=== PATIENT | female | born 1990 | race African-American/Black ===

== ENCOUNTER 2016-05-28 14:49 | Emergency (ER) | payer BC ==
[~2016-05-28] VITALS: Ht 167.6 cm; Wt 143.3 kg
[2016-05-28 14:57] VITALS: TEMP 36.6; Ht 167.6 cm; Wt 143.3 kg
[2016-05-28] MEDS ORDERED: MULT-240 PO (15:16)
[2016-05-28 15:44] LABS: HEMATOCRIT 40.8 % (37-47); MEAN CELL VOLUME 82.8 fL (80-100); MEAN CORPUSCULAR HEMOGLOBIN 28.2 pg (25-34); MEAN CORPUSCULAR HGB CONC 34.1 g/dl (32-36); PLATELET COUNT 444 K/uL (130-400); RED BLOOD COUNT 4.93 M/uL (4.2-5.4); WHITE BLOOD COUNT 4.88 K/uL (4.8-10.8)
[2016-05-28 15:57] LABS: PROTHROMBIN TIME (PATIENT) 10.7 SECONDS (9.0-12.0)
--- NOTE | 2016-05-28 16:02 | EMERGENCY ROOM VISIT NOTE ---
History First contact with patient: 15:04 Chief Complaint: VAGINAL BLEEDING Stated Complaint: VAGINAL BLEEDING, DIZZINESS, DEHYDRATION History of Present Illness The patient is a 26 year old female who presents to the Emergency Room with complaints of irregular periods. The patient reports that she developed spotting over 2 weeks ago. She states that since her period started, it has been very heavy most days. She reports she has been changing her pad every 5-6 hours. The patient reports that her periods have been irregular in the past. She states that since starting her period as a teenager, she has had frequent periods. She has been working out recently and is unsure if this could be causing her symptoms. She does report she has been under a lot of stress recently due to a move and family issues. She denies any previous bleeding like this. She denies any history or family history of bleeding disorders. She does not take control pills. She denies chance of . She denies any significant cramping, vaginal discharge or urinary symptoms. She denies any other medical problems. Review of Systems A complete 10-point Review of Systems was discussed with the patient, with pertinent positives and negatives listed in the History of Present Illness. All remaining Review of Systems questions can be considered negative unless otherwise specified. Social History Smoking Status: Never Smoker Current/Historical Medications Scheduled Multiple Vitamins W/ Minerals (Womens One Daily), 1 TAB PO DAILY Allergies Coded Allergies: No Known Allergies (Unverified , 05/28/16) Physical Exam Vital Signs Date Time Temp Pulse Resp B/P Pulse Ox O2 Delivery O2 Flow Rate FiO2 05/28/16 18:20 98 18 120/90 96 Room Air 05/28/16 14:57 36.6 91 20 115/94 100 Room Air Physical Exam VITALS: Vitals are noted on the nurse's note and reviewed by myself. Vital signs stable. GENERAL: This is a 26-year-old female, anxious appearing, nondiaphoretic, well- developed well-nourished. SKIN: Capillary reflex less than 2 seconds. HEART: Regular rate and rhythm without murmurs gallops or rubs. LUNGS: Clear to auscultation bilaterally without wheezes, rales or rhonchi. ABDOMEN: Positive bowel sounds x 4. Soft, nontender to palpation. No guarding or rebound tenderness. NEURO: Patient was alert and oriented to person place and time. Medical Decision & Procedures ER Provider Diagnostic Interpretation: PELVIC ULTRASOUND FINDINGS: This exam is compromised by suboptimal penetration. The uterus measures 6.1 x 2.8 x 4.1 cm and the endometrium measures 7 mm in thickness. Note is made of a 1.4 cm hypoechoic lesion arising from the right aspect of the uterus. In addition, there is an apparent 2.3 cm round hypoechoic lesion arising from the left aspect of the uterus. The right ovary measures 3.7 x 1.4 x 3.1 cm. The left ovary measures 4.1 x 1.3 x 2.8 cm. IMPRESSION: 1. Normal endometrial thickness of 7 mm. 2. 2 hypoechoic lesions which likely arise from the uterus. The largest of these is a 2.3 cm lesion arising from the left aspect of the uterus which may reflect a subserosal fibroid. A follow-up nonemergent MRI of the pelvis could be performed. 3. Study compromised by suboptimal penetration. 4. Partially obscured ovaries but no significant ovarian abnormality identified. Laboratory Results 05/28/16 15:30 Red Blood Count 4.93, Mean Corpuscular Volume 82.8, Mean Corpuscular Hemoglobin 28.2, Mean Corpuscular Hemoglobin Concent 34.1, Mean Platelet Volume 10.0 05/28/16 15:30 Test 05/28/16 15:30 White Blood Count 4.88 K/uL (4.8-10.8) Red Blood Count 4.93 M/uL (4.2-5.4) Hemoglobin 13.9 g/dL (12.0-16.0) Hematocrit 40.8 % (37-47) Mean Corpuscular Volume 82.8 fL (80-100) Mean Corpuscular Hemoglobin 28.2 pg (25-34) Mean Corpuscular Hemoglobin Concent 34.1 g/dl (32-36) Platelet Count 444 K/uL (130-400) Mean Platelet Volume 10.0 fL (7.4-10.4) RDW Standard Deviation 51.4 fL (36.4-46.3) RDW Coefficient of Variation 16.9 % (11.5-14.5) Neutrophils % (Manual) 34.2 % Lymphocytes % (Manual) 48.2 % Variant Lymphocytes % (manual) 12.3 % Monocytes % (Manual) 5.3 % Neutrophils # (Manual) 1.67 K/uL (1.4-6.5) Total Absolute Neutrophils 1.67 K/uL (1.4-6.5) Lymphocytes # (Manual) 2.35 K/uL (1.2-3.4) Absolute Variant Lymphocytes 0.60 K/uL Total Absolute Lymphocytes 2.95 K/uL (1.2-3.4) Monocytes # (Manual) 0.26 K/uL (0.11-0.59) Prothrombin Time 10.7 SECONDS (9.0-12.0) Prothromb Time International Ratio 1.0 (0.9-1.1) Activated Partial Thromboplast Time 26.7 SECONDS (21.0-31.0) Partial Thromboplastin Ratio 1.0 Anion Gap 11.0 mmol/L (3-11) Est Creatinine Clear Calc Drug Dose 144.5 ml/min Estimated GFR () 108.1 Estimated GFR (Non- 93.2 BUN/Creatinine Ratio 6.5 (10-20) Calcium Level 8.4 mg/dl (8.5-10.1) Total Bilirubin 0.3 mg/dl (0.2-1) Aspartate Amino Transf (AST/SGOT) 37 U/L (15-37) Alanine Aminotransferase (ALT/SGPT) 62 U/L (12-78) Alkaline Phosphatase 92 U/L (45-117) Total Protein 8.3 gm/dl (6.4-8.2) Albumin 3.9 gm/dl (3.4-5.0) Globulin 4.4 gm/dl (2.5-4.0) Albumin/Globulin Ratio 0.9 (0.9-2) Thyroid Stimulating Hormone (TSH) 0.155 uIu/ml (0.300-4.500) Free Thyroxine 0.93 ng/dl (0.80-1.60) Free Triiodothyronine 2.34 pg/ml (2.30-4.20) Medical Decision Differential diagnosis includes uterine fibroid, malignancy, thyroid disorder, infection, among others. The patient was evaluated as above. Labs were drawn and IV access was obtained. Imaging studies were performed and read by radiology as above. The patient is a 26-year-old female who presents today complaining of irregular periods. Labs revealed no leukocytosis, anemia or concerning electrolyte abnormalities. PTT and PT/INR were within normal limits. TSH was slightly low. T3 and T4 were found to be normal. Urinalysis was not suggestive of infection. Urine was negative. A pelvic ultrasound was performed and did show evidence of a possible uterine fibroid. The patient was informed of all findings. She will need to follow-up with [facility] for the fibroid. She was instructed to follow-up with a primary care provider to have her thyroid studies rechecked. She will return for any new/concerning symptoms. Based on the patient's presentation, lab results, and imaging studies, I feel the patient is stable for outpatient treatment. The patient's case was reviewed with Dr. Mcgarry, ED attending physician, who agreed with my assessment and treatment plan. Discharge instructions were reviewed with the patient. The patient verbalized understanding of my assessment and treatment plan and was discharged home in good condition. Impression Primary Impression: Abnormal vaginal bleeding Additional Impression: Uterine fibroid Departure Information Dispostion Home / Self-Care Condition GOOD Referrals No Doctor, Assigned (PCP) Dorothea Francis M.D. Patient Instructions A Signature Page, My [facility] Additional Instructions Your ultrasound showed a possible uterine fibroid. You will need to follow-up with [facility] within 1-2 weeks for further evaluation of this. Your thyroid studies were slightly abnormal. You will need to see a primary care provider in the next few weeks to have this checked. All testing was otherwise normal. Return to the emergency department with any new/concerning symptoms, abdominal pain, or very heavy vaginal bleeding.
[2016-05-28 16:06] LABS: BUN/CREATININE RATIO 6.5 (10-20); CALCIUM 8.4 mg/dl (8.5-10.1); CREATININE 0.85 mg/dl (0.60-1.20); POTASSIUM 3.7 mmol/L (3.5-5.1)
[2016-05-28 16:11] LABS: COMPLETE YES; LYMPH ABS # 2.35 K/uL (1.2-3.4); LYMPHOCYTE % 48.2 %; NEUTROPHILS % 34.2 %; VARIANT LYMPHOCYTE % 12.3 %
[2016-05-28 16:16] LABS: ALB/GLOB RATIO 0.9 (0.9-2); THYROID STIMULATING HORMONE 0.155 uIu/ml (0.300-4.500)
--- NOTE | 2016-05-28 17:16 | DIAGNOSTIC IMAGING REPORT ---
PELVIC ULTRASOUND CLINICAL HISTORY: Irregular periods. COMPARISON STUDY: None TECHNIQUE: Transabdominal and transvaginal sonography of the pelvis was performed. FINDINGS: This exam is compromised by suboptimal penetration. The uterus measures 6.1 x 2.8 x 4.1 cm and the endometrium measures 7 mm in thickness. Note is made of a 1.4 cm hypoechoic lesion arising from the right aspect of the uterus. In addition, there is an apparent 2.3 cm round hypoechoic lesion arising from the left aspect of the uterus. The right ovary measures 3.7 x 1.4 x 3.1 cm. The left ovary measures 4.1 x 1.3 x 2.8 cm. IMPRESSION: 1. Normal endometrial thickness of 7 mm. 2. 2 hypoechoic lesions which likely arise from the uterus. The largest of these is a 2.3 cm lesion arising from the left aspect of the uterus which may reflect a subserosal fibroid. A follow-up nonemergent MRI of the pelvis could be performed. 3. Study compromised by suboptimal penetration. 4. Partially obscured ovaries but no significant ovarian abnormality identified. Electronically signed by: Kadeem Fuentes M.D. 05/28/2016 5:14 PM Dictated Date/Time: 05/28/2016 5:11 PM
[2016-05-28 18:20] VITALS: BP 120/90; PULSE 98; O2SAT 96
[2016-09-03] MEDS ORDERED: PRT40 PO (15:40)
[2016-09-29] MEDS ORDERED: ZNT150 PO (17:58)
[2016-09-29] MEDS ORDERED: CRFUDL PO (17:58)
[2016-10-13] MEDS ORDERED: ULT50X PO (10:40)
[2016-11-22] MEDS ORDERED: ULT50X PO (17:48)
[2016-12-09] MEDS ORDERED: METO-157 PO (08:58)
== END 2016-05-28 18:22 | disposition home or self-care (01) ==
LOC: C.EDB 14:54 → C.EDC 18:22
DX: N93.9 Abnormal uterine and vaginal bleeding, unspecified (principal); D25.9 Leiomyoma of uterus, unspecified

== ENCOUNTER 2016-08-30 23:08 | Inpatient (IN) | payer BC ==
[~2016-08-30] VITALS: Ht 167.6 cm; Wt 143.1 kg
[~2016-08-30 23:08] MED LIST: MULT-240 PO
[2016-08-30] MEDS ORDERED: HYDROmorphone INJ 1 MG/ML SYR IV STA (23:24)
[2016-08-30] MEDS ORDERED: SODIUM CHLORIDE 0.9% 1000ML 1,000 ML IV STA (23:24)
[2016-08-30] MEDS ORDERED: ONDANSETRON INJ 2 MG/ML 2 ML VIAL IV STA (23:24)
--- NOTE | 2016-08-30 23:27 | EMERGENCY ROOM VISIT NOTE ---
History Report prepared by Batsheva: Yuri Montana Under the Supervision of: Dr. Peter Preston M.D. First contact with patient: 23:17 Chief Complaint: ABDOMINAL PAIN Stated Complaint: SEVERE ABD PAIN,SWEATS,EXHAUSTED History of Present Illness The patient is a 26 year old female who presents to the Emergency Room with complaints of worsening upper abdominal pain for the past two days. The pain is severe. The patient also complains of nausea, vomiting, loose and dark stools. She has never had surgery of the abdomen. She denies any rashes. 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 She has a history of uterine fibroid. Source of History: patient Onset: two days ago Position: abdomen (upper) Symptom Intensity: severe Timing: worsening Associated Symptoms: + diarrhea (loose stools), + melena, + nausea, + vomiting, No rash Review of Systems See HPI for pertinent positives & negatives. A total of 10 systems reviewed and were otherwise negative. Past Medical & Surgical Medical Problems: (1) Abdominal pain (2) Abnormal vaginal bleeding (3) Elevated bilirubin (4) Uterine fibroid Family History No pertinent family history Social History Smoking Status: Never Smoker 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 Current/Historical Medications Scheduled Control Pills ( Control Pills), 1 TAB PO DAILY Allergies Coded Allergies: No Known Allergies (Unverified , 08/30/16) Physical Exam Vital Signs Date Time Temp Pulse Resp B/P Pulse Ox O2 Delivery O2 Flow Rate FiO2 08/31/16 02:47 110 16 135/116 98 Room Air 08/31/16 01:29 122 22 161/106 98 Room Air 08/31/16 00:24 104 20 159/108 95 Room Air 08/30/16 23:10 37.2 131 20 159/85 97 Room Air Physical Exam GENERAL: Patient is severely uncomfortable appearing. HEENT: No acute trauma, normocephalic atraumatic, mucous membranes moist, no nasal congestion, no scleral icterus. NECK: No stridor, no adenopathy, no meningismus, trachea is midline. LUNGS: No dyspnea. Clear to auscultation and equal bilaterally. No wheeze, no rhonchi. HEART: Tachycardic, regular rhythm. No murmurs, rubs, gallops appreciated. ABDOMEN: Exquisite right upper quadrant tenderness to palpation, no peritonitis , distant bowel sounds. BACK: No midline tenderness, no CVA tenderness EXTREMITIES: Normal motion all extremities, no cyanosis, no edema. NEUROLOGIC: Alert and oriented, no acute motor or sensory deficits, no focal weakness, cranial nerves grossly intact. SKIN: Diaphoretic. No rash, no jaundice. Medical Decision & Procedures ER Provider Diagnostic Interpretation: Radiology results and stated below per my review and radiologist interpretation: US GALLBLADDER: No gallstones. No gallbladder wall thickening. Common bile duct is upper limits of normal measuring 6 mm. Enlarged liver with increased echogenicity, possible fatty infiltration or other etiologies. No right hydronephrosis. Pancreas not well visualized. Radiologist: Michell Cruz MD. CT ABDOMEN & PELVIS: No evidence of bowel obstruction. Appendix is unremarkable. Fatty liver. Dense material in the gallbladder. A 10 mm hypodense focus in the right upper quadrant of unclear etiology, may be pancreatic. Probably uterine fibroids. No hydronephrosis. Tiny left renal hypodensity. Mildly thickened underdistended bladder. Radiologist: Michell Cruz MD. Laboratory Results 08/30/16 23:33 Red Blood Count 4.74, Mean Corpuscular Volume 81.0, Mean Corpuscular Hemoglobin 27.2, Mean Corpuscular Hemoglobin Concent 33.6, Mean Platelet Volume 9.4, Neutrophils (%) (Auto) 52.7, Lymphocytes (%) (Auto) 38.6, Monocytes (%) (Auto) 7.7, Eosinophils (%) (Auto) 0.3, Basophils (%) (Auto) 0.5, Neutrophils # (Auto) 3.07, Lymphocytes # (Auto) 2.25, Monocytes # (Auto) 0.45, Eosinophils # (Auto) 0.02, Basophils # (Auto) 0.03 08/30/16 23:33 Test 08/30/16 23:33 08/31/16 03:00 White Blood Count 5.83 K/uL (4.8-10.8) Red Blood Count 4.74 M/uL (4.2-5.4) Hemoglobin 12.9 g/dL (12.0-16.0) Hematocrit 38.4 % (37-47) Mean Corpuscular Volume 81.0 fL (80-100) Mean Corpuscular Hemoglobin 27.2 pg (25-34) Mean Corpuscular Hemoglobin Concent 33.6 g/dl (32-36) Platelet Count 351 K/uL (130-400) Mean Platelet Volume 9.4 fL (7.4-10.4) Neutrophils (%) (Auto) 52.7 % Lymphocytes (%) (Auto) 38.6 % Monocytes (%) (Auto) 7.7 % Eosinophils (%) (Auto) 0.3 % Basophils (%) (Auto) 0.5 % Neutrophils # (Auto) 3.07 K/uL (1.4-6.5) Lymphocytes # (Auto) 2.25 K/uL (1.2-3.4) Monocytes # (Auto) 0.45 K/uL (0.11-0.59) Eosinophils # (Auto) 0.02 K/uL (0-0.5) Basophils # (Auto) 0.03 K/uL (0-0.2) RDW Standard Deviation 52.3 fL (36.4-46.3) RDW Coefficient of Variation 17.8 % (11.5-14.5) Immature Granulocyte % (Auto) 0.2 % Immature Granulocyte # (Auto) 0.01 K/uL (0.00-0.02) Prothrombin Time 11.4 SECONDS (9.0-12.0) Prothromb Time International Ratio 1.1 (0.9-1.1) Activated Partial Thromboplast Time 27.3 SECONDS (21.0-31.0) Partial Thromboplastin Ratio 1.1 Anion Gap 16.0 mmol/L (3-11) Est Creatinine Clear Calc Drug Dose 123.9 ml/min Estimated GFR () 89.9 Estimated GFR (Non- 77.6 BUN/Creatinine Ratio 5.3 (10-20) Calcium Level 9.1 mg/dl (8.5-10.1) Total Bilirubin 1.5 mg/dl (0.2-1) Direct Bilirubin 0.4 mg/dl (0-0.2) Aspartate Amino Transf (AST/SGOT) 95 U/L (15-37) Alanine Aminotransferase (ALT/SGPT) 69 U/L (12-78) Alkaline Phosphatase 94 U/L (45-117) Total Protein 8.7 gm/dl (6.4-8.2) Albumin 4.2 gm/dl (3.4-5.0) Lipase 292 U/L (73-393) Urine Color DK YELLOW Urine Appearance CLEAR (CLEAR) Urine pH 5.5 (4.5-7.5) Urine Specific [place] 1.010 (1.000-1.030) Urine Protein 1+ (NEG) Urine Glucose (UA) NEG (NEG) Urine Ketones 3+ (NEG) Urine Occult Blood 1+ (NEG) Urine Nitrite NEG (NEG) Urine Bilirubin NEG (NEG) Urine Urobilinogen NEG (NEG) Urine Leukocyte Esterase NEG (NEG) Urine WBC (Auto) 10-30 /hpf (0-5) Urine RBC (Auto) 0-4 /hpf (0-4) Urine Hyaline Casts (Auto) 0 /lpf (0-5) Urine Epithelial Cells (Auto) >30 /lpf (0-5) Urine Bacteria (Auto) 2+ (NEG) Urine Pathogenic Casts /lpf (0) Urine Test NEG (NEG) Laboratory results as reviewed by me. Medications Administered Medications (Trade) Dose Ordered Sig/Marlin Route Start Time Stop Time Status Last Admin Dose Admin Hydromorphone HCl (Dilaudid Inj) 1 mg NOW STAT IV 08/30/16 23:24 08/30/16 23:26 DC 08/30/16 23:56 1 MG Hydromorphone HCl (Dilaudid Inj) 1 mg Q30M PRN IV 08/30/16 23:30 09/13/16 23:29 08/31/16 01:34 1 MG Ondansetron HCl 4 mg 4 mg NOW STAT IV 08/30/16 23:24 08/30/16 23:26 DC 08/30/16 23:56 4 MG Sodium Chloride (Nss 1000ml) 1,000 ml @ 999 mls/hr Q1H1M STAT IV 08/30/16 23:24 08/31/16 00:24 DC 08/30/16 23:24 999 MLS/HR Hydromorphone HCl (Dilaudid Inj) 1 mg NOW STAT IV 08/31/16 00:49 08/31/16 00:51 DC 08/31/16 01:01 1 MG Ondansetron HCl (Zofran Inj) 4 mg NOW STAT IV 08/31/16 00:57 08/31/16 00:58 DC 08/31/16 01:01 4 MG ED Course 2320: The patient was evaluated in room A12b. A complete history and physical exam was performed. 2324: NSS 1000 ml @ 999 mls/hr, Zofran 4 mg IV, Dilaudid 1 mg IV. 2330: Dilaudid 1 mg IV. 0045: The patient has increasing pain. I will order more pain medications and a CT scan. 0049: Dilaudid 1 mg IV. 0057: The patient is feeling nauseous. 0057: Zofran 4 mg IV. 0230: The patient is feeling a little better. She still has some nausea and is mildly tachycardic. 0235: [facility] The patient will be evaluated. Medical Decision Differential: Cholecystitis, Gallbladder disfunction, Hepatic Disfunction, Gastritis/PUD, Renal Colic, Pancreatitis, ACS, Aortic Pathology, amongst other pathologies entertained. Very pleasant 26 yr old bárbara arrives in quite some distress with RUQ abdominal pain. Associated nausea/vomiting/diaphoresis. Clearly RUQ area thus radha to US first which was minimally remarkable. Labs with mildly elevated bili and as and with continued pain went ahead wih CT. CT with pass in RUQ of uncertain etiology (Pancrease?). This may be causing some ductal obstruction and just is early thus only mild bili increase. She has been requiring multiple rounds of pain medications and nausea meds. Notes dark stools without blood though unable to provide sample. May have ulcer bleeding but with mass unclear. Will need to come in for further evaluation and pain control. No clear evidence infection. None cardiac in nature as clearly reproducible. Dehydrated with increased ketones in urine. Consults Time Called: 224 Consulting Physician: [facility] Returned Call: [phone]: Discussed the case with Keven Coffey [facility]. The patient will be evaluated. Impression Primary Impression: Intractable abdominal pain Additional Impressions: Pancreatic mass Elevated bilirubin Dehydration Scribe Attestation The scribe's documentation has been prepared under my direction and personally reviewed by me in its entirety. I confirm that the note above accurately reflects all work, treatment, procedures, and medical decision making performed by me. Departure Information Dispostion Being Evaluated By Hospitalist Referrals No Doctor, Assigned (PCP) Patient Instructions My [facility] Problem Qualifiers
[2016-08-30] MEDS ORDERED: HYDROmorphone INJ 1 MG/ML SYR IV PRN (23:30)
[2016-08-30 23:42] LABS: BASO % 0.5 %; BASO ABS # 0.03 K/uL (0-0.2); COMPLETE YES; EOS % 0.3 %; HEMATOCRIT 38.4 % (37-47); IG% 0.2 %; LYMPH % 38.6 %; LYMPH ABS # 2.25 K/uL (1.2-3.4); MEAN CORPUSCULAR HEMOGLOBIN 27.2 pg (25-34); MEAN CORPUSCULAR HGB CONC 33.6 g/dl (32-36); MEAN PLATELET VOLUME 9.4 fL (7.4-10.4); MONO % 7.7 %; NEUT % 52.7 %; PLATELET COUNT 351 K/uL (130-400); RED BLOOD COUNT 4.74 M/uL (4.2-5.4); WHITE BLOOD COUNT 5.83 K/uL (4.8-10.8)
[2016-08-31 00:03] LABS: CREATININE 0.99 mg/dl (0.60-1.20)
[2016-08-31 00:04] LABS: BUN/CREATININE RATIO 5.3 (10-20); CALCIUM 9.1 mg/dl (8.5-10.1); POTASSIUM 3.3 mmol/L (3.5-5.1)
[2016-08-31] MEDS ORDERED: HYDROmorphone INJ 1 MG/ML SYR IV STA (00:49)
[2016-08-31] MEDS ORDERED: ONDANSETRON INJ 2 MG/ML 2 ML VIAL IV STA (00:57)
[2016-08-31] MEDS ORDERED: OPTIRAY 320 IV PRN (01:00)
[2016-08-31 02:54] LABS: INR 1.1 (0.9-1.1); PARTIAL THROMBOPLASTIN RATIO 1.1; PROTHROMBIN TIME (PATIENT) 11.4 SECONDS (9.0-12.0)
[2016-08-31 03:15] LABS: URINE APPEARANCE CLEAR (CLEAR); URINE BILIRUBIN NEG (NEG); URINE COLOR DK YELLOW; URINE EPITHELIAL CELL AUTO >30 /lpf (0-5); URINE NITRITE NEG (NEG); URINE PH 5.5 (4.5-7.5); UROBILINOGEN NEG (NEG); ZZUR CULT IF INDIC CLEAN CATCH YES
[2016-08-31 03:16] LABS: MANUAL MICROSCOPIC REQUIRED? NO; REVIEW REQ? YES
--- NOTE | 2016-08-31 03:32 | History and Physical ---
History & Physical Date & Time of Service: Aug 31, 2016 at 03:31 Chief Complaint: Severe Abd Pain,Sweats,Exhausted Primary Care Physician: No Doctor, Assigned History of Present Illness Source: patient The patient is a 26 year old female who presents to the Emergency Room with complaints of worsening upper abdominal pain for the past two days. The pain is severe. The patient also complains of nausea, vomiting, loose and dark stools. She has never had surgery of the abdomen. at present her pain improved after IV pain meds , nausea has improved no fever or chills RUQ Ultrasound was negative for gall stone , gall bladder wall thickening CT abdomen /pelvis -10 mm hypodense mass in rt lower body of pancreas no prior hx of pancreatitis pt drinks alcohol socially , no recent ETOH intake does not smoke Past Medical/Surgical History Medical Problems: (1) Abnormal vaginal bleeding Status: Resolved (2) Uterine fibroid Status: Resolved Family History No pertinent family history Social History Smoking Status: Never Smoker 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 Allergies Coded Allergies: No Known Allergies (Unverified , 08/30/16) Home Medications Scheduled Control Pills ( Control Pills), 1 TAB PO DAILY Review of Systems Constitutional: + fatigue, + weakness Respiratory: No cough, No dyspnea at rest, No dyspnea on exertion, No hemoptysis, No problem reported, No shortness of breath, No sputum, No wheezing Cardiovascular: No PND, No chest pain, No claudication, No edema, No orthopnea , No palpitations, No problem reported Abdomen: + diarrhea, + nausea, + pain, + vomiting Musculoskeletal: No calf pain, No joint pain, No muscle pain, No problem reported, No swelling Genitourinary - Female: No dysmenorrhea, No dysuria, No hematuria, No menorrhagia, No metrorrhagia, No , No problem reported, No rash, No urinary frequency, No urinary incontinence, No urinary retention, No urinary urgency, No vaginal bleeding, No vaginal discharge, No vaginal itching, No vulvodynia Physical Exam Vital Signs Date Time Temp Pulse Resp B/P Pulse Ox O2 Delivery O2 Flow Rate FiO2 08/31/16 02:47 110 16 135/116 98 Room Air 08/31/16 01:29 122 22 161/106 98 Room Air 08/31/16 00:24 104 20 159/108 95 Room Air 08/30/16 23:10 37.2 131 20 159/85 97 Room Air General Appearance: no apparent distress Head: normocephalic, atraumatic Eyes: sclerae normal Respiratory/Chest: lungs clear, normal breath sounds Cardiovascular: regular rate, rhythm Abdomen/GI: soft, + tenderness (rt upper quadrant ) Extremities/Musculoskelatal: no pedal edema Neurologic/Psych: no motor/sensory deficits, alert, oriented x 3 Skin: normal color, warm/dry, no rash Diagnostics Laboratory Results Results Past 24 Hours Test 08/30/16 23:33 08/31/16 03:00 Range/Units White Blood Count 5.83 4.8-10.8 K/uL Red Blood Count 4.74 4.2-5.4 M/uL Hemoglobin 12.9 12.0-16.0 g/dL Hematocrit 38.4 37-47 % Mean Corpuscular Volume 81.0 80-100 fL Mean Corpuscular Hemoglobin 27.2 25-34 pg Mean Corpuscular Hemoglobin Concent 33.6 32-36 g/dl Platelet Count 351 130-400 K/uL Mean Platelet Volume 9.4 7.4-10.4 fL Neutrophils (%) (Auto) 52.7 % Lymphocytes (%) (Auto) 38.6 % Monocytes (%) (Auto) 7.7 % Eosinophils (%) (Auto) 0.3 % Basophils (%) (Auto) 0.5 % Neutrophils # (Auto) 3.07 1.4-6.5 K/uL Lymphocytes # (Auto) 2.25 1.2-3.4 K/uL Monocytes # (Auto) 0.45 0.11-0.59 K/uL Eosinophils # (Auto) 0.02 0-0.5 K/uL Basophils # (Auto) 0.03 0-0.2 K/uL RDW Standard Deviation 52.3 36.4-46.3 fL RDW Coefficient of Variation 17.8 11.5-14.5 % Immature Granulocyte % (Auto) 0.2 % Immature Granulocyte # (Auto) 0.01 0.00-0.02 K/uL Prothrombin Time 11.4 9.0-12.0 SECONDS Prothromb Time International Ratio 1.1 0.9-1.1 Activated Partial Thromboplast Time 27.3 21.0-31.0 SECONDS Partial Thromboplastin Ratio 1.1 Sodium Level 139 136-145 mmol/L Potassium Level 3.3 3.5-5.1 mmol/L Chloride Level 101 98-107 mmol/L Carbon Dioxide Level 22 21-32 mmol/L Anion Gap 16.0 3-11 mmol/L Blood Urea Nitrogen 5 7-18 mg/dl Creatinine 0.99 0.60-1.20 mg/dl Est Creatinine Clear Calc Drug Dose 123.9 ml/min Estimated GFR () 89.9 Estimated GFR (Non- 77.6 BUN/Creatinine Ratio 5.3 10-20 Random Glucose 94 70-99 mg/dl Calcium Level 9.1 8.5-10.1 mg/dl Total Bilirubin 1.5 0.2-1 mg/dl Direct Bilirubin 0.4 0-0.2 mg/dl Aspartate Amino Transf (AST/SGOT) 95 15-37 U/L Alanine Aminotransferase (ALT/SGPT) 69 12-78 U/L Alkaline Phosphatase 94 45-117 U/L Total Protein 8.7 6.4-8.2 gm/dl Albumin 4.2 3.4-5.0 gm/dl Lipase 292 73-393 U/L Urine Color DK YELLOW Urine Appearance CLEAR CLEAR Urine pH 5.5 4.5-7.5 Urine Specific [place] 1.010 1.000-1.030 Urine Protein 1+ NEG Urine Glucose (UA) NEG NEG Urine Ketones 3+ NEG Urine Occult Blood 1+ NEG Urine Nitrite NEG NEG Urine Bilirubin NEG NEG Urine Urobilinogen NEG NEG Urine Leukocyte Esterase NEG NEG Urine WBC (Auto) 10-30 0-5 /hpf Urine RBC (Auto) 0-4 0-4 /hpf Urine Hyaline Casts (Auto) 0 0-5 /lpf Urine Epithelial Cells (Auto) >30 0-5 /lpf Urine Bacteria (Auto) 2+ NEG Urine Pathogenic Casts 0 /lpf Urine Test NEG NEG Microbiology Results 08/31/16 Urine Culture, Received Pending Diagnostic Radiology US GALLBLADDER: No gallstones. No gallbladder wall thickening. Common bile duct is upper limits of normal measuring 6 mm. Enlarged liver with increased echogenicity, possible fatty infiltration or other etiologies. No right hydronephrosis. Pancreas not well visualized. Radiologist: Michell Cruz MD. CT ABDOMEN & PELVIS: No evidence of bowel obstruction. Appendix is unremarkable. Fatty liver. Dense material in the gallbladder. A 10 mm hypodense focus in the right upper quadrant of unclear etiology, may be pancreatic. Probably uterine fibroids. No hydronephrosis. Tiny left renal hypodensity. Mildly thickened underdistended bladder. Radiologist: Michell Cruz MD. Impression Assessment and Plan Epigastric and RUQ pain: Mild elevated LFTs Gall bladder USD:No gall stones, hepatomegaly and severe hepatic steatosis CT ABDOMEN & PELVIS: A 10 mm hypodense focus in the right upper quadrant of unclear etiology, may be pancreatic. Probably uterine fibroids. MRCP of abdomen ordered normal lipase level IV fluids/pain control/ordered for IV antiemetics ordered for NPO after midnight IV PPI BID GI consult requested FULL CODE DVT Px: low risk SCD and teds \ ambulate DISPOSITION: expected to return home when medially stable Level of Care Med/Surg Resuscitation Status FULL RESUSCITATION VTE Prophylaxis VTE Risk Assessment Done? Y/N: Yes Risk Level: Low Given or contraindicated: T.E.D. Stockings, SCD's
[2016-08-31] MEDS ORDERED: LORAZEPAM 2 MG/ML 1 ML VIAL IV STA (03:37)
[2016-08-31] MEDS ORDERED: NSS+KCL 20 MEQ 1000ML ONE (03:55)
[2016-08-31] MEDS ORDERED: POTASSIUM CHLORIDE 10 MEQ / 100ML WTR IV ONE (03:55)
[2016-08-31] MEDS ORDERED: LORAZEPAM INJ 0.5 MG in SYRINGE 0.75 ML IV PRN (04:45)
[2016-08-31 04:57] VITALS: BP 144/97; PULSE 93; TEMP 36.7; O2SAT 97; Ht 167.6 cm; Wt 143.1 kg
[2016-08-31] MEDS ORDERED: POTASSIUM CHLR 10 MEQ / WTR 10 MEQ in PREMIXED WATER 100 ML IV SCH (05:00)
[2016-08-31] MEDS: NSS + 20MEQ KCL 1000ML 1,000 ML IV SCH ×3 (05:28→21:08)
[2016-08-31] MEDS: HYDROmorphone INJ 2 MG/ML SYR/VIAL IV PRN ×2 (05:32→16:37)
[2016-08-31 06:56] VITALS: BP 125/85; PULSE 105; TEMP 36.5; O2SAT 96
--- NOTE | 2016-08-31 07:15 | DIAGNOSTIC IMAGING REPORT ---
ULTRASOUND RIGHT UPPER QUADRANT ABDOMEN CLINICAL HISTORY: Right upper quadrant abdominal pain. COMPARISON STUDY: No priors. TECHNIQUE: Real-time, grayscale, and color flow sonography of the right upper quadrant of the abdomen was performed. Images are reviewed in the transverse and longitudinal planes. The examination is degraded by large body habitus. FINDINGS: Liver: The liver is enlarged and demonstrates heterogeneously increased echotexture consistent with severe hepatic steatosis. Note that this degrades acoustic penetration of the liver. Fatty sparing is seen adjacent to the gallbladder fossa. There is no intrahepatic biliary ductal dilatation. The main portal vein is patent. Gallbladder: The gallbladder is normal in appearance. No gallstones are identified. There is no gallbladder wall thickening or pericholecystic fluid. A sonographic Jefferson's sign is reportedly absent. The common bile duct measures up to 0.5 cm in diameter. Pancreas: Visualized portions of the pancreatic head and body are normal in appearance. The majority of the pancreas is not well visualized. The splenic vein is patent. Right kidney: Survey images of the right kidney demonstrate normal size and echotexture. There is no hydronephrosis. Ascites: None. IMPRESSION: 1. No acute sonographic abnormality is identified in the right upper quadrant. No gallstones are seen. 2. Hepatomegaly and severe hepatic steatosis. Electronically signed by: Mathew Calero M.D. 08/31/2016 7:13 AM Dictated Date/Time: 08/31/2016 7:11 AM
--- NOTE | 2016-08-31 07:30 | DIAGNOSTIC IMAGING REPORT ---
CT SCAN OF THE ABDOMEN AND PELVIS WITH IV CONTRAST CLINICAL HISTORY: Right upper quadrant abdominal pain. COMPARISON STUDY: Abdominal ultrasound dated 08/31/2016. TECHNIQUE: Following the IV administration of 116 cc of Optiray 320, CT scan of the abdomen and pelvis is performed from the lung bases to the proximal femora. Images are reviewed in the axial, sagittal, and coronal planes. IV contrast was administered without complication. Automated dose control exposure was utilized. The examination is degraded by large body habitus, and by streak artifact from the body wall abutting the CT gantry. CT DOSE: 2232.32 mGy.cm FINDINGS: Lung bases: The heart is normal in size and without pericardial effusion. The lung bases are clear. Liver: The contrast-enhanced liver is enlarged, measuring 21.6 cm in length. The liver demonstrates diffusely diminished attenuation consistent with severe hepatic steatosis. Fatty sparing is noted adjacent to gallbladder fossa. There is no intrahepatic biliary ductal dilatation. The hepatic veins and portal veins are patent. Gallbladder: Unremarkable. Spleen: Normal in size and attenuation. Pancreas: Unremarkable. Adrenal glands: Unremarkable. Kidneys: The contrast enhanced kidneys are normal in size and without hydronephrosis. The kidneys enhance symmetrically. A circumaortic left renal vein is incidentally noted. Abdominal vasculature: The abdominal aorta is normal in course and caliber. Bowel: The small bowel and colon are normal in course and caliber. The appendix is well-visualized and normal. Peritoneum: There is no intraperitoneal free air or abdominal ascites. Lymphadenopathy: None. Pelvic viscera: The bladder is normal as visualized. Small uterine fibroids are suspected. No adnexal lesion is seen. There are small ovarian follicles. Skeletal structures: No lytic or blastic lesions are seen. IMPRESSION: 1. There are no acute infectious or inflammatory findings in the abdomen or pelvis. 2. Hepatomegaly and severe hepatic steatosis. 3. Suspect uterine fibroids. Electronically signed by: Mathew Calero M.D. 08/31/2016 7:28 AM Dictated Date/Time: 08/31/2016 7:25 AM
[2016-08-31 07:31] VITALS: BP 137/90; PULSE 101; TEMP 36.5; O2SAT 96
[2016-08-31] MEDS: ONDANSETRON INJ 2 MG/ML 2 ML VIAL IV PRN ×2 (07:41→16:36)
[2016-08-31 07:56] LABS: BUN/CREATININE RATIO 4.9 (10-20); CALCIUM 8.2 mg/dl (8.5-10.1); CHOLESTEROL/HDL RATIO 2.5; CREATININE 0.82 mg/dl (0.60-1.20); POTASSIUM 3.8 mmol/L (3.5-5.1)
--- NOTE | 2016-08-31 08:06 | Gastrointestinal Consultation ---
Gastrointestinal Consultation Date of Consultation: Aug 31, 2016 Consulting Physician: Joelle Reason for Consultation: elevated LFTs, ?pancreatic mass History of Present Illness Patient is a 26 year old female w/ PMH significant for uterine fibroids who presents to the ED for evaluation of upper abdominal pain. Pt reports that for the past two months she has been having episodes of upper abdominal pain. Pain is located in the epigastric region and radiates to her RUQ. There is sometimes associates nausea & vomiting. She reports over the past two months there have been worsening signs of reflux for which she is taking tums as an outpatient. She reports feeling of acid in her throat, burping, belching and epigastric burning. She denies any unintentional weight loss, painful or difficultly swallowing. She has noted dark brown stools over the past few days, her BMs typically are carbonator in color. She denies any fever, chills, chest pain, SOB, BRBPR, hematemesis. CT abd 08/31/16: The contrast-enhanced liver is enlarged, measuring 21.6 cm in length. The liver demonstrates diffusely diminished attenuation consistent with severe hepatic steatosis. Fatty sparing is noted adjacent to gallbladder fossa. There is no intrahepatic biliary ductal dilatation. The hepatic veins and portal veins are patent. Gallbladder: Unremarkable. Spleen: Normal in size and attenuation. Pancreas: Unremarkable. Adrenal glands: Unremarkable. Bowel: The small bowel and colon are normal in course and caliber. The appendix is well- visualized and normal. Peritoneum: There is no intraperitoneal free air or abdominal ascites. Lymphadenopathy: None. Pelvic viscera: The bladder is normal as visualized. Small uterine fibroids are suspected. No adnexal lesion is seen. There are small ovarian follicles. Skeletal structures: No lytic or blastic lesions are seen. US 08/30/16: The liver is enlarged and demonstrates heterogeneously increased echotexture consistent with severe hepatic steatosis. Note that this degrades acoustic penetration of the liver. Fatty sparing is seen adjacent to the gallbladder fossa. There is no intrahepatic biliary ductal dilatation. The main portal vein is patent. Gallbladder: The gallbladder is normal in appearance. No gallstones are identified. There is no gallbladder wall thickening or pericholecystic fluid. A sonographic Jefferson's sign is reportedly absent. The common bile duct measures up to 0.5 cm in diameter. Pancreas: Visualized portions of the pancreatic head and body are normal in appearance. The majority of the pancreas is not well visualized. The splenic vein is patent. Past Medical/Surgical History Medical Problems: (1) Dehydration Status: Acute (2) Intractable abdominal pain Status: Acute (3) Pancreatic mass Status: Acute Family History No pertinent family history Social History Smoking Status: Never Smoker 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 Allergies Coded Allergies: No Known Allergies (Unverified , 08/30/16) Current Medications Home Meds and Scripts Medications Dose Route/Sig Max Daily Dose Days Date Category Control Pills (Miscellaneous) Tab 1 Tab PO DAILY 08/30/16 Reported Review of Systems Constitutional: No chills, No fever Respiratory: No cough, No shortness of breath Cardiac: No chest pain, No edema Abdomen: + diarrhea, + nausea, + pain, + vomiting, No GI bleeding, No constipation Physical Exam Date Time Temp Pulse Resp B/P Pulse Ox O2 Delivery O2 Flow Rate FiO2 08/31/16 07:31 36.5 101 18 137/90 96 Room Air 08/31/16 04:57 36.7 93 18 144/97 97 Room Air 08/31/16 04:34 37.2 103 18 144/92 99 08/31/16 04:30 Room Air 08/31/16 04:08 108 08/31/16 04:08 103 18 144/92 99 Room Air 08/31/16 02:47 110 16 135/116 98 Room Air 08/31/16 01:29 122 22 161/106 98 Room Air 08/31/16 00:24 104 20 159/108 95 Room Air 08/30/16 23:10 37.2 131 20 159/85 97 Room Air General Appearance: no apparent distress Eyes: PERRL ENT: hearing grossly normal Neck: supple, trachea midline Respiratory/Chest: lungs clear, normal breath sounds, no respiratory distress, no accessory muscle use Cardiovascular: regular rate, rhythm, no edema, no gallop, no JVD Abdomen: normal bowel sounds, soft, no organomegaly, no pulsatile mass, + tenderness (epigastic and RUQ) Neurologic/Psych: alert, normal mood/affect, oriented x 3 Skin: normal color, no jaundice, warm/dry, no rash Laboratory Results Last 24 Hours Test 08/30/16 23:33 08/31/16 03:00 08/31/16 07:02 White Blood Count 5.83 K/uL Red Blood Count 4.74 M/uL Hemoglobin 12.9 g/dL Hematocrit 38.4 % Mean Corpuscular Volume 81.0 fL Mean Corpuscular Hemoglobin 27.2 pg Mean Corpuscular Hemoglobin Concent 33.6 g/dl Platelet Count 351 K/uL Mean Platelet Volume 9.4 fL Neutrophils (%) (Auto) 52.7 % Lymphocytes (%) (Auto) 38.6 % Monocytes (%) (Auto) 7.7 % Eosinophils (%) (Auto) 0.3 % Basophils (%) (Auto) 0.5 % Neutrophils # (Auto) 3.07 K/uL Lymphocytes # (Auto) 2.25 K/uL Monocytes # (Auto) 0.45 K/uL Eosinophils # (Auto) 0.02 K/uL Basophils # (Auto) 0.03 K/uL RDW Standard Deviation 52.3 fL RDW Coefficient of Variation 17.8 % Immature Granulocyte % (Auto) 0.2 % Immature Granulocyte # (Auto) 0.01 K/uL Prothrombin Time 11.4 SECONDS Prothromb Time International Ratio 1.1 Activated Partial Thromboplast Time 27.3 SECONDS Partial Thromboplastin Ratio 1.1 Sodium Level 139 mmol/L 138 mmol/L Potassium Level 3.3 mmol/L 3.8 mmol/L Chloride Level 101 mmol/L 104 mmol/L Carbon Dioxide Level 22 mmol/L 22 mmol/L Anion Gap 16.0 mmol/L 12.0 mmol/L Blood Urea Nitrogen 5 mg/dl 4 mg/dl Creatinine 0.99 mg/dl 0.82 mg/dl Est Creatinine Clear Calc Drug Dose 123.9 ml/min 82.1 ml/min Estimated GFR () 89.9 112.9 Estimated GFR (Non- 77.6 97.4 BUN/Creatinine Ratio 5.3 4.9 Random Glucose 94 mg/dl 106 mg/dl Calcium Level 9.1 mg/dl 8.2 mg/dl Total Bilirubin 1.5 mg/dl 1.2 mg/dl Direct Bilirubin 0.4 mg/dl 0.3 mg/dl Aspartate Amino Transf (AST/SGOT) 95 U/L 70 U/L Alanine Aminotransferase (ALT/SGPT) 69 U/L 56 U/L Alkaline Phosphatase 94 U/L 78 U/L Total Protein 8.7 gm/dl 7.6 gm/dl Albumin 4.2 gm/dl 3.6 gm/dl Lipase 292 U/L Urine Color DK YELLOW Urine Appearance CLEAR Urine pH 5.5 Urine Specific [place] 1.010 Urine Protein 1+ Urine Glucose (UA) NEG Urine Ketones 3+ Urine Occult Blood 1+ Urine Nitrite NEG Urine Bilirubin NEG Urine Urobilinogen NEG Urine Leukocyte Esterase NEG Urine WBC (Auto) 10-30 /hpf Urine RBC (Auto) 0-4 /hpf Urine Hyaline Casts (Auto) 0 /lpf Urine Epithelial Cells (Auto) >30 /lpf Urine Bacteria (Auto) 2+ Urine Pathogenic Casts /lpf Urine Test NEG Triglycerides Level 122 mg/dl Cholesterol Level 191 mg/dl HDL Cholesterol 77 mg/dl LDL Cholesterol, Calculated 90 mg/dl VLDL Cholesterol, Calculated 24 mg/dl Cholesterol/HDL Ratio 2.5 Impression Patient is a 26 year old female with epigastric and RUQ pain, mildly elevated LFTs and ?RUQ mass on preliminary CT report. Discussed CT with radiologist, mass mentioned in previous CT likely a benign lipoma. Given mildly elevated LFTS , we will still proceed with a MRCP today and EGD tomorrow. Plan NPO MRCP IV PPI BID EGD 09/01/16 antiemetics PRN analgesics PRN I have seen, examined and agree with the plan as outlined by RITA Harrell as above. -exam reveals soft abd -plan for EGD in the am, elevated LFT's may be from fatty liver, follow and if remains elevated serologica workup
--- NOTE | 2016-08-31 12:53 | DIAGNOSTIC IMAGING REPORT ---
MRCP CLINICAL HISTORY: pancreatic mass pain. Nausea. TECHNIQUE: Multiaxial MRI acquisition COMPARISON STUDY: CT examination same date FINDINGS: Fatty infiltration of liver. No space-occupying hepatic lesion. Kidneys negative for hydronephrosis. Small lipoma the duodenal sweep. No significant pancreatic abnormality. The adrenal glands are unremarkable. Signal characteristics of the kidneys are unremarkable. MRCP comparison study is unremarkable. There is no significant filling defect or stenotic process. IMPRESSION: Negative study read fatty infiltration of liver. Small lipoma of the duodenal sweep Electronically signed by: Toro Singh M.D. 08/31/2016 12:51 PM Dictated Date/Time: 08/31/2016 12:45 PM
[2016-08-31 15:18] VITALS: BP 148/99; PULSE 101; TEMP 36.6; O2SAT 96
--- NOTE | 2016-08-31 17:40 | Progress Note ---
Internal Med Progress Note Date of Service: Aug 31, 2016. Provider Documentation: SUBJECTIVE: Patient is seen and examined at bedside. States having epigastric and RUQ abd pain. Also has nausea, vomiting. Denies any chest pain, SOB. Offers no other complaints. OBJECTIVE: Vital Signs-as noted below Physical Exam: General Appearance:Moderately built and nourished, no apparent distress Head: normocephalic, Atraumatic Eyes: normal inspection, EOMI, PERRL Neck: supple, Trachea midline Respiratory/Chest: Normal breath sounds, CTA Cardiovascular: S1, S2, No murmur Abdomen/GI:Soft, mild tender epigastric, RUQ, Bowel sounds present Extremities/Musculoskelatal:normal inspection, no edema Neurologic/Psych:AAOX3, grossly no focal neurological deficits Skin: normal color, warm Lab data as noted below. ASSESSMENT & PLAN: Epigastric and RUQ pain: Mild elevated LFTs likely secondary to fatty liver CT ABD: No acute infectious, inflammatory findings Hepatomegaly and severe hepatic steatosis, Possible uterine fibroids Gall bladder USD:No gall stones, hepatomegaly and severe hepatic steatosis S/P MRCP: fatty liver Continue IV PPI BID Appreciate GI input Planned for EGD in AM Pain control and antiemetics PRN IV fluids NPO after midnight H/O Uterine fibroids: No active bleeding currently on OCPs Follow up with OBGYN as outpatient DVT Px: SCDs DISPOSITION: Continue to monitor PROCEDURES: Gall bladder USD: 1. No acute sonographic abnormality is identified in the right upper quadrant. No gallstones are seen. 2. Hepatomegaly and severe hepatic steatosis. CT ABD: 1. There are no acute infectious or inflammatory findings in the abdomen or pelvis. 2. Hepatomegaly and severe hepatic steatosis. 3. Suspect uterine fibroids. MRCP: Negative study read fatty infiltration of liver. Small lipoma of the duodenal sweep Vital Signs: Date Time Temp Pulse Resp B/P Pulse Ox O2 Delivery O2 Flow Rate FiO2 08/31/16 15:18 36.6 101 18 148/99 96 Room Air 08/31/16 07:45 Room Air 08/31/16 07:31 36.5 101 18 137/90 96 Room Air 08/31/16 06:56 36.5 105 16 125/85 96 Room Air 08/31/16 04:57 36.7 93 18 144/97 97 Room Air 08/31/16 04:34 37.2 103 18 144/92 99 08/31/16 04:30 Room Air 08/31/16 04:08 108 08/31/16 04:08 103 18 144/92 99 Room Air 08/31/16 02:47 110 16 135/116 98 Room Air 08/31/16 01:29 122 22 161/106 98 Room Air 08/31/16 00:24 104 20 159/108 95 Room Air 08/30/16 23:10 37.2 131 20 159/85 97 Room Air Lab Results: Results Past 24 Hours Test 08/30/16 23:33 08/31/16 03:00 08/31/16 07:02 Range/Units White Blood Count 5.83 4.8-10.8 K/uL Red Blood Count 4.74 4.2-5.4 M/uL Hemoglobin 12.9 12.0-16.0 g/dL Hematocrit 38.4 37-47 % Mean Corpuscular Volume 81.0 80-100 fL Mean Corpuscular Hemoglobin 27.2 25-34 pg Mean Corpuscular Hemoglobin Concent 33.6 32-36 g/dl Platelet Count 351 130-400 K/uL Mean Platelet Volume 9.4 7.4-10.4 fL Neutrophils (%) (Auto) 52.7 % Lymphocytes (%) (Auto) 38.6 % Monocytes (%) (Auto) 7.7 % Eosinophils (%) (Auto) 0.3 % Basophils (%) (Auto) 0.5 % Neutrophils # (Auto) 3.07 1.4-6.5 K/uL Lymphocytes # (Auto) 2.25 1.2-3.4 K/uL Monocytes # (Auto) 0.45 0.11-0.59 K/uL Eosinophils # (Auto) 0.02 0-0.5 K/uL Basophils # (Auto) 0.03 0-0.2 K/uL RDW Standard Deviation 52.3 36.4-46.3 fL RDW Coefficient of Variation 17.8 11.5-14.5 % Immature Granulocyte % (Auto) 0.2 % Immature Granulocyte # (Auto) 0.01 0.00-0.02 K/uL Prothrombin Time 11.4 9.0-12.0 SECONDS Prothromb Time International Ratio 1.1 0.9-1.1 Activated Partial Thromboplast Time 27.3 21.0-31.0 SECONDS Partial Thromboplastin Ratio 1.1 Sodium Level 139 138 136-145 mmol/L Potassium Level 3.3 3.8 3.5-5.1 mmol/L Chloride Level 101 104 98-107 mmol/L Carbon Dioxide Level 22 22 21-32 mmol/L Anion Gap 16.0 12.0 3-11 mmol/L Blood Urea Nitrogen 5 4 7-18 mg/dl Creatinine 0.99 0.82 0.60-1.20 mg/dl Est Creatinine Clear Calc Drug Dose 123.9 82.1 ml/min Estimated GFR () 89.9 112.9 Estimated GFR (Non- 77.6 97.4 BUN/Creatinine Ratio 5.3 4.9 10-20 Random Glucose 94 106 70-99 mg/dl Calcium Level 9.1 8.2 8.5-10.1 mg/dl Total Bilirubin 1.5 1.2 0.2-1 mg/dl Direct Bilirubin 0.4 0.3 0-0.2 mg/dl Aspartate Amino Transf (AST/SGOT) 95 70 15-37 U/L Alanine Aminotransferase (ALT/SGPT) 69 56 12-78 U/L Alkaline Phosphatase 94 78 45-117 U/L Total Protein 8.7 7.6 6.4-8.2 gm/dl Albumin 4.2 3.6 3.4-5.0 gm/dl Lipase 292 73-393 U/L Urine Color DK YELLOW Urine Appearance CLEAR CLEAR Urine pH 5.5 4.5-7.5 Urine Specific [place] 1.010 1.000-1.030 Urine Protein 1+ NEG Urine Glucose (UA) NEG NEG Urine Ketones 3+ NEG Urine Occult Blood 1+ NEG Urine Nitrite NEG NEG Urine Bilirubin NEG NEG Urine Urobilinogen NEG NEG Urine Leukocyte Esterase NEG NEG Urine WBC (Auto) 10-30 0-5 /hpf Urine RBC (Auto) 0-4 0-4 /hpf Urine Hyaline Casts (Auto) 0 0-5 /lpf Urine Epithelial Cells (Auto) >30 0-5 /lpf Urine Bacteria (Auto) 2+ NEG Urine Pathogenic Casts 0 /lpf Urine Test NEG NEG Triglycerides Level 122 0-150 mg/dl Cholesterol Level 191 0-200 mg/dl HDL Cholesterol 77 mg/dl LDL Cholesterol, Calculated 90 mg/dl VLDL Cholesterol, Calculated 24 mg/dl Cholesterol/HDL Ratio 2.5 Microbiology Results 08/31/16 Urine Culture, Received Pending
[2016-08-31] MEDS: PANTOprazole INJ 40 MG in SYRINGE 0 ML IV SCH (21:08)
[2016-08-31] MEDS: HYDROmorphone INJ 1 MG/ML SYR IV PRN (22:00)
[2016-08-31 23:17] VITALS: BP 136/83; PULSE 97; TEMP 36.8; O2SAT 98
[2016-09-01 00:09] VITALS: BP 136/83; PULSE 97; TEMP 36.8; O2SAT 98
[2016-09-01] MEDS: NSS + 20MEQ KCL 1000ML 1,000 ML IV SCH ×4 (04:56→20:45)
[2016-09-01 07:53] VITALS: BP 140/90; PULSE 81; TEMP 36.7; O2SAT 97
[2016-09-01 08:28] LABS: BASO % 0.5 %; BASO ABS # 0.02 K/uL (0-0.2); COMPLETE YES; EOS % 2.7 %; HEMATOCRIT 34.1 % (37-47); IG% 0.7 %; LYMPH % 42.4 %; LYMPH ABS # 1.72 K/uL (1.2-3.4); MEAN CELL VOLUME 84.8 fL (80-100); MEAN CORPUSCULAR HEMOGLOBIN 26.9 pg (25-34); MEAN CORPUSCULAR HGB CONC 31.7 g/dl (32-36); MEAN PLATELET VOLUME 10.2 fL (7.4-10.4); MONO % 8.4 %; NEUT % 45.3 %; PLATELET COUNT 248 K/uL (130-400); RED BLOOD COUNT 4.02 M/uL (4.2-5.4); WHITE BLOOD COUNT 4.06 K/uL (4.8-10.8)
[2016-09-01] MEDS: PANTOprazole INJ 40 MG in SYRINGE 0 ML IV SCH (08:43)
[2016-09-01] MEDS: ONDANSETRON INJ 2 MG/ML 2 ML VIAL IV PRN (08:43)
[2016-09-01 08:54] LABS: ALT/SGPT 48 U/L (12-78); BLOOD UREA NITROGEN < 1 mg/dl (7-18); CALCIUM 8.3 mg/dl (8.5-10.1); CARBON DIOXIDE 23 mmol/L (21-32); CHLORIDE 106 mmol/L (98-107); GLUCOSE 77 mg/dl (70-99); MAGNESIUM 1.8 mg/dl (1.8-2.4); POTASSIUM 3.7 mmol/L (3.5-5.1); SODIUM 140 mmol/L (136-145)
[2016-09-01 08:56] LABS: ALKALINE PHOSPHATASE 67 U/L (45-117); AST/SGOT 62 U/L (15-37)
[2016-09-01] MEDS ORDERED: PROPOFOL IV EMULSION 10 MG/ML 20 ML VIAL IV ONE ×2 (11:29→11:51)
[2016-09-01] MEDS ORDERED: LIDOCAINE HCL 2% 2 ML VIAL (20MG/ML) ONE (11:29)
[2016-09-01] MEDS ORDERED: MIDAZOLAM HCL 1 MG/ML 2ML VIAL ONE ×2 (11:30→11:55)
[2016-09-01] MEDS ORDERED: KETAMINE HCL INJ 50 MG/ML 10 ML VIAL ONE (11:52)
--- NOTE | 2016-09-01 12:00 | GI REPORT ---
Procedure Date: 09/01/2016 11:02 AM Procedure: Upper GI endoscopy Indications: Epigastric abdominal pain Medicines: General Anesthesia Complications: No immediate complications. Estimated blood loss: None. Estimated Blood Loss: Estimated blood loss: none. Procedure: Pre-Anesthesia Assessment: - Pre-Anesthesia Assessment: - Prior to the procedure, a History and Physical was performed, and patient medications, allergies and sensitivities were reviewed. The patient's tolerance of previous anesthesia was reviewed. Please see Bringme for complete details. - The risks and benefits of the procedure and the sedation options and risks were discussed with the patient. All questions were answered and informed consent was obtained. - Patient identification and proposed procedure were verified prior to the procedure by the physician and the nurse. The procedure was verified in the pre-procedure area in the procedure room. After obtaining informed consent, the endoscope was passed carefully and meticuously under direct vision and only advanced when the lumen was clearly identified, C02 insuflation was utilized throughout the entirity of the procedure. Throughout the procedure, the patient's blood pressure, pulse, and oxygen saturations were monitored continuously. After obtaining informed consent, the endoscope was passed under direct vision. Throughout the procedure, the patient's blood pressure, pulse, and oxygen saturations were monitored continuously. The scope was introduced through the mouth, and advanced to the second part of duodenum. The upper GI endoscopy was accomplished without difficulty. The patient tolerated the procedure well. Findings: LA Grade B (one or more mucosal breaks greater than 5 mm, not extending between the tops of two mucosal folds) esophagitis with no bleeding was found. The entire examined stomach was normal. The examined duodenum was normal. Impression: - LA Grade B reflux esophagitis. - Normal stomach. - Normal examined duodenum. - No specimens collected. Recommendation: - Return patient to [facility] for possible discharge same day. - Use Prilosec (omeprazole) 40 mg PO BID for 2 months. - Repeat the upper endoscopy in 2 months to check healing. - Return to referring physician as previously scheduled. Eduar Lai MD 09/01/2016 12:00:11 PM This report has been signed electronically. Note Initiated On: 09/01/2016 11:02 AM I attest to the content of the Intraoperative Record and orders documented therein, exceptions below
[2016-09-01 12:53] VITALS: BP 143/90; PULSE 104; TEMP 37; O2SAT 99
--- NOTE | 2016-09-01 15:01 | Anesthesiology Progress Note ---
Anesthesia Post Op Note Date & Time Sep 01, 2016 at 15:00 Vital Signs Pain Intensity: 0.0 Vital Signs Past 12 Hours Date Time Temp Pulse Resp B/P Pulse Ox O2 Delivery O2 Flow Rate FiO2 09/01/16 12:53 37.0 104 18 143/90 99 Room Air 09/01/16 12:31 104 16 155/91 100 Room Air Mask 09/01/16 12:16 107 16 148/81 99 Room Air Mask 09/01/16 12:01 125 14 126/93 100 Mask 7 09/01/16 09:50 37 97 20 140/92 98 Room Air 09/01/16 08:10 Room Air 09/01/16 07:53 36.7 81 17 140/90 97 Room Air Notes Mental Status: alert / awake / arousable, participated in evaluation Pt Amnestic to Procedure: Yes Nausea / Vomiting: adequately controlled Pain: adequately controlled Airway Patency, RR, SpO2: stable & adequate BP & HR: stable & adequate Hydration State: stable & adequate Anesthetic Complications: no major complications apparent
[2016-09-01 15:02] VITALS: BP 102/70; PULSE 99; TEMP 37.2; O2SAT 95
--- NOTE | 2016-09-01 15:27 | Progress Note ---
Internal Med Progress Note Date of Service: Sep 01, 2016. Provider Documentation: SUBJECTIVE: Patient is seen and examined at bedside. Patient had EGD today. States having epigastric and RUQ abd pain. Also has nausea, vomiting. Denies any chest pain, SOB. Offers no other complaints. OBJECTIVE: Vital Signs-as noted below Physical Exam: General Appearance:Moderately built and nourished, no apparent distress Head: normocephalic, Atraumatic Eyes: normal inspection, EOMI, PERRL Neck: supple, Trachea midline Respiratory/Chest: Normal breath sounds, CTA Cardiovascular: S1, S2, No murmur Abdomen/GI:Soft, mild tender epigastric, RUQ, Bowel sounds present Extremities/Musculoskelatal:normal inspection, no edema Neurologic/Psych:AAOX3, grossly no focal neurological deficits Skin: normal color, warm Lab data as noted below. ASSESSMENT & PLAN: Epigastric and RUQ pain: Mild elevated LFTs likely secondary to fatty liver CT ABD: No acute infectious, inflammatory findings Hepatomegaly and severe hepatic steatosis, Possible uterine fibroids Gall bladder USD:No gall stones, hepatomegaly and severe hepatic steatosis S/P MRCP: fatty liver S/P EGD on 09/01/16: LA Grade B esophagitis Needs repeat Endoscopy in 2 months Continue PPI BID Appreciate GI input Pain control and antiemetics PRN decrease IVF to 50ml/hr Start low fat diet H/O Uterine fibroids: No active bleeding currently on OCPs Follow up with OBGYN as outpatient Obesity: BMI:50.9 DVT Px: SCDs DISPOSITION: Continue to monitor Plan to discharge tomorrow if stable PROCEDURES: Gall bladder USD: 1. No acute sonographic abnormality is identified in the right upper quadrant. No gallstones are seen. 2. Hepatomegaly and severe hepatic steatosis. CT ABD: 1. There are no acute infectious or inflammatory findings in the abdomen or pelvis. 2. Hepatomegaly and severe hepatic steatosis. 3. Suspect uterine fibroids. MRCP: Negative study read fatty infiltration of liver. Small lipoma of the duodenal sweep EGD: LA grade B esophagitis Needs repeat EGD in 2 months Vital Signs: Date Time Temp Pulse Resp B/P Pulse Ox O2 Delivery O2 Flow Rate FiO2 09/01/16 15:02 37.2 99 18 102/70 95 Room Air 09/01/16 12:53 37.0 104 18 143/90 99 Room Air 09/01/16 12:31 104 16 155/91 100 Room Air Mask 09/01/16 12:16 107 16 148/81 99 Room Air Mask 09/01/16 12:01 125 14 126/93 100 Mask 7 09/01/16 09:50 37 97 20 140/92 98 Room Air 09/01/16 08:10 Room Air 09/01/16 07:53 36.7 81 17 140/90 97 Room Air 09/01/16 00:09 36.8 97 16 136/83 98 08/31/16 23:17 36.8 97 16 136/83 98 Room Air 08/31/16 21:50 Room Air 08/31/16 16:30 Room Air Lab Results: Results Past 24 Hours Test 09/01/16 07:40 Range/Units White Blood Count 4.06 4.8-10.8 K/uL Red Blood Count 4.02 4.2-5.4 M/uL Hemoglobin 10.8 12.0-16.0 g/dL Hematocrit 34.1 37-47 % Mean Corpuscular Volume 84.8 80-100 fL Mean Corpuscular Hemoglobin 26.9 25-34 pg Mean Corpuscular Hemoglobin Concent 31.7 32-36 g/dl Platelet Count 248 130-400 K/uL Mean Platelet Volume 10.2 7.4-10.4 fL Neutrophils (%) (Auto) 45.3 % Lymphocytes (%) (Auto) 42.4 % Monocytes (%) (Auto) 8.4 % Eosinophils (%) (Auto) 2.7 % Basophils (%) (Auto) 0.5 % Neutrophils # (Auto) 1.84 1.4-6.5 K/uL Lymphocytes # (Auto) 1.72 1.2-3.4 K/uL Monocytes # (Auto) 0.34 0.11-0.59 K/uL Eosinophils # (Auto) 0.11 0-0.5 K/uL Basophils # (Auto) 0.02 0-0.2 K/uL RDW Standard Deviation 56.4 36.4-46.3 fL RDW Coefficient of Variation 18.5 11.5-14.5 % Immature Granulocyte % (Auto) 0.7 % Immature Granulocyte # (Auto) 0.03 0.00-0.02 K/uL Sodium Level 140 136-145 mmol/L Potassium Level 3.7 3.5-5.1 mmol/L Chloride Level 106 98-107 mmol/L Carbon Dioxide Level 23 21-32 mmol/L Anion Gap 11.0 3-11 mmol/L Blood Urea Nitrogen < 1 7-18 mg/dl Creatinine 0.70 0.60-1.20 mg/dl Est Creatinine Clear Calc Drug Dose 175.2 ml/min Estimated GFR () 136.7 Estimated GFR (Non- 117.9 BUN/Creatinine Ratio 10-20 Random Glucose 77 70-99 mg/dl Calcium Level 8.3 8.5-10.1 mg/dl Magnesium Level 1.8 1.8-2.4 mg/dl Total Bilirubin 0.9 0.2-1 mg/dl Direct Bilirubin 0.2 0-0.2 mg/dl Aspartate Amino Transf (AST/SGOT) 62 15-37 U/L Alanine Aminotransferase (ALT/SGPT) 48 12-78 U/L Alkaline Phosphatase 67 45-117 U/L Total Protein 6.9 6.4-8.2 gm/dl Albumin 3.3 3.4-5.0 gm/dl Microbiology Results 09/01/16 C.difficile Toxin B Gene (PCR) - Final, Complete No C. difficile toxin B gene detected
[2016-09-01] MEDS: HYDROmorphone INJ 1 MG/ML SYR IV PRN (15:55)
[2016-09-01 19:23] VITALS: BP 94/69; PULSE 86; TEMP 36.8; O2SAT 96
[2016-09-01] MEDS: PANTOprazole SOD 40 MG TAB PO SCH (20:41)
[2016-09-01 22:55] VITALS: BP 125/74; PULSE 89; TEMP 36.8; O2SAT 98
[2016-09-02 07:29] VITALS: BP 119/86; PULSE 97; TEMP 36.8; O2SAT 99
[2016-09-02 08:54] LABS: BUN/CREATININE RATIO 2.2 (10-20); CREATININE 0.69 mg/dl (0.60-1.20); MAGNESIUM 1.7 mg/dl (1.8-2.4); POTASSIUM 3.7 mmol/L (3.5-5.1)
[2016-09-02] MEDS: PANTOprazole SOD 40 MG TAB PO SCH ×2 (08:58→21:12)
[2016-09-02 09:01] LABS: CALCIUM 8.8 mg/dl (8.5-10.1)
--- NOTE | 2016-09-02 13:22 | Progress Note ---
Internal Med Progress Note Date of Service: Sep 02, 2016. Provider Documentation: SUBJECTIVE: Patient is seen and examined at bedside. States her abd pain is improving. Denies nausea, vomiting. Has been having diarrhea. Denies any chest pain, SOB. Offers no other complaints. OBJECTIVE: Vital Signs-as noted below Physical Exam: General Appearance:Moderately built and nourished, no apparent distress Head: normocephalic, Atraumatic Eyes: normal inspection, EOMI, PERRL Neck: supple, Trachea midline Respiratory/Chest: Normal breath sounds, CTA Cardiovascular: S1, S2, No murmur Abdomen/GI:Soft, non tender, Bowel sounds present Extremities/Musculoskelatal:normal inspection, no edema Neurologic/Psych:AAOX3, grossly no focal neurological deficits Skin: normal color, warm Lab data as noted below. ASSESSMENT & PLAN: Epigastric and RUQ pain: Mild elevated LFTs likely secondary to fatty liver CT ABD: No acute infectious, inflammatory findings Hepatomegaly and severe hepatic steatosis, Possible uterine fibroids Gall bladder USD:No gall stones, hepatomegaly and severe hepatic steatosis S/P MRCP: fatty liver S/P EGD on 09/01/16: LA Grade B esophagitis Needs repeat Endoscopy in 2 months Continue PPI BID Appreciate GI input Pain control and antiemetics PRN Continue IVF Advance diet as tolerated Esophagitis: S/P EGD Continue PPI BID Needs repeat Endoscopy in 2 months and follow up with Diarrhea: Persistent Recheck stool for c.diff H/O Uterine fibroids: No active bleeding currently on OCPs Follow up with OBGYN as outpatient Obesity: BMI:50.9 DVT Px: SCDs DISPOSITION: Continue to monitor Plan to discharge in 1-2 days if stable PROCEDURES: Gall bladder USD: 1. No acute sonographic abnormality is identified in the right upper quadrant. No gallstones are seen. 2. Hepatomegaly and severe hepatic steatosis. CT ABD: 1. There are no acute infectious or inflammatory findings in the abdomen or pelvis. 2. Hepatomegaly and severe hepatic steatosis. 3. Suspect uterine fibroids. MRCP: Negative study read fatty infiltration of liver. Small lipoma of the duodenal sweep EGD: LA grade B esophagitis Needs repeat EGD in 2 months Vital Signs: Date Time Temp Pulse Resp B/P Pulse Ox O2 Delivery O2 Flow Rate FiO2 09/02/16 07:59 Room Air 09/02/16 07:29 36.8 97 17 119/86 99 Room Air 09/01/16 23:45 Room Air 09/01/16 22:55 36.8 89 18 125/74 98 Room Air 09/01/16 19:23 36.8 86 18 94/69 96 Room Air 09/01/16 15:43 Room Air 09/01/16 15:02 37.2 99 18 102/70 95 Room Air Lab Results: Results Past 24 Hours Test 09/02/16 06:45 Range/Units Sodium Level 139 136-145 mmol/L Potassium Level 3.7 3.5-5.1 mmol/L Chloride Level 106 98-107 mmol/L Carbon Dioxide Level 25 21-32 mmol/L Anion Gap 8.0 3-11 mmol/L Blood Urea Nitrogen 2 7-18 mg/dl Creatinine 0.69 0.60-1.20 mg/dl Est Creatinine Clear Calc Drug Dose 177.8 ml/min Estimated GFR () 137.3 Estimated GFR (Non- 118.5 BUN/Creatinine Ratio 2.2 10-20 Random Glucose 96 70-99 mg/dl Calcium Level 8.8 8.5-10.1 mg/dl Magnesium Level 1.7 1.8-2.4 mg/dl Total Bilirubin 0.7 0.2-1 mg/dl Direct Bilirubin 0.2 0-0.2 mg/dl Aspartate Amino Transf (AST/SGOT) 34 15-37 U/L Alanine Aminotransferase (ALT/SGPT) 38 12-78 U/L Alkaline Phosphatase 61 45-117 U/L Total Protein 6.6 6.4-8.2 gm/dl Albumin 3.2 3.4-5.0 gm/dl
[2016-09-02 15:14] VITALS: BP 133/80; PULSE 99; TEMP 36.7; O2SAT 99
[2016-09-02] MEDS: NSS + 20MEQ KCL 1000ML 1,000 ML IV SCH (16:55)
[2016-09-02 23:31] VITALS: BP 117/86; PULSE 107; TEMP 36.5; O2SAT 98
[2016-09-03] MEDS: NSS + 20MEQ KCL 1000ML 1,000 ML IV SCH (00:05)
[2016-09-03 07:05] VITALS: BP 134/94; PULSE 99; TEMP 36.5; O2SAT 97
[2016-09-03 07:25] LABS: BASO % 0.4 %; BASO ABS # 0.02 K/uL (0-0.2); COMPLETE YES; EOS % 3.4 %; HEMATOCRIT 39.2 % (37-47); IG% 0.4 %; LYMPH % 45.1 %; LYMPH ABS # 2.42 K/uL (1.2-3.4); MEAN CELL VOLUME 84.1 fL (80-100); MEAN CORPUSCULAR HGB CONC 32.1 g/dl (32-36); MEAN PLATELET VOLUME 10.2 fL (7.4-10.4); MONO % 8.2 %; NEUT % 42.5 %; PLATELET COUNT 228 K/uL (130-400); RED BLOOD COUNT 4.66 M/uL (4.2-5.4); WHITE BLOOD COUNT 5.37 K/uL (4.8-10.8)
[2016-09-03 07:55] LABS: BUN/CREATININE RATIO 4.7 (10-20); CALCIUM 8.7 mg/dl (8.5-10.1); CREATININE 0.85 mg/dl (0.60-1.20); POTASSIUM 3.4 mmol/L (3.5-5.1)
[2016-09-03] MEDS: PANTOprazole SOD 40 MG TAB PO SCH (08:29)
[2016-09-03 15:03] VITALS: BP 121/79; PULSE 95; TEMP 37.1; O2SAT 98
[2016-09-03] MEDS ORDERED: POTASSIUM CHLORIDE 10 MEQ TABCR PO ONE (15:30)
--- NOTE | 2016-09-03 15:38 | Progress Note ---
Internal Med Progress Note Date of Service: Sep 03, 2016. Provider Documentation: SUBJECTIVE: Patient is seen and examined at bedside. States abd pain, nausea, vomiting, diarrhea resolved. Feels much better. Denies any chest pain, SOB. Offers no other complaints. OBJECTIVE: Vital Signs-as noted below Physical Exam: General Appearance:Moderately built and nourished, no apparent distress Head: normocephalic, Atraumatic Eyes: normal inspection, EOMI, PERRL Neck: supple, Trachea midline Respiratory/Chest: Normal breath sounds, CTA Cardiovascular: S1, S2, No murmur Abdomen/GI:Soft, non tender, Bowel sounds present Extremities/Musculoskelatal:normal inspection, no edema Neurologic/Psych:AAOX3, grossly no focal neurological deficits Skin: normal color, warm Lab data as noted below. ASSESSMENT & PLAN: Epigastric and RUQ pain: Mild elevated LFTs likely secondary to fatty liver CT ABD: No acute infectious, inflammatory findings Hepatomegaly and severe hepatic steatosis, Possible uterine fibroids Gall bladder USD:No gall stones, hepatomegaly and severe hepatic steatosis S/P MRCP: fatty liver S/P EGD on 09/01/16: LA Grade B esophagitis Needs repeat Endoscopy in 2 months Continue PPI BID Appreciate GI input Pain control and antiemetics PRN Continue IVF Advance diet as tolerated Esophagitis: S/P EGD Continue PPI BID Needs repeat Endoscopy in 2 months and follow up with Diarrhea: Persistent Recheck stool for c.diff H/O Uterine fibroids: No active bleeding currently on OCPs Follow up with OBGYN as outpatient Obesity: BMI:50.9 DVT Px: SCDs DISPOSITION: Plan to discharge home today Follow up with Dr. Tsai on September 08, 2016 at 1:05PM Follow up with your bit shaver in 2 months as advised for repeat EGD (endoscopy) as outpatient PROCEDURES: Gall bladder USD: 1. No acute sonographic abnormality is identified in the right upper quadrant. No gallstones are seen. 2. Hepatomegaly and severe hepatic steatosis. CT ABD: 1. There are no acute infectious or inflammatory findings in the abdomen or pelvis. 2. Hepatomegaly and severe hepatic steatosis. 3. Suspect uterine fibroids. MRCP: Negative study read fatty infiltration of liver. Small lipoma of the duodenal sweep EGD: LA grade B esophagitis Needs repeat EGD in 2 months Vital Signs: Date Time Temp Pulse Resp B/P Pulse Ox O2 Delivery O2 Flow Rate FiO2 09/03/16 15:03 37.1 95 17 121/79 98 Room Air 09/03/16 07:15 Room Air 09/03/16 07:05 36.5 99 17 134/94 97 09/03/16 00:05 Room Air 09/02/16 23:31 36.5 107 16 117/86 98 Room Air Lab Results: Results Past 24 Hours Test 09/02/16 21:00 09/03/16 07:10 Range/Units White Blood Count 5.37 4.8-10.8 K/uL Red Blood Count 4.66 4.2-5.4 M/uL Hemoglobin 12.6 12.0-16.0 g/dL Hematocrit 39.2 37-47 % Mean Corpuscular Volume 84.1 80-100 fL Mean Corpuscular Hemoglobin 27.0 25-34 pg Mean Corpuscular Hemoglobin Concent 32.1 32-36 g/dl Platelet Count 228 130-400 K/uL Mean Platelet Volume 10.2 7.4-10.4 fL Neutrophils (%) (Auto) 42.5 % Lymphocytes (%) (Auto) 45.1 % Monocytes (%) (Auto) 8.2 % Eosinophils (%) (Auto) 3.4 % Basophils (%) (Auto) 0.4 % Neutrophils # (Auto) 2.29 1.4-6.5 K/uL Lymphocytes # (Auto) 2.42 1.2-3.4 K/uL Monocytes # (Auto) 0.44 0.11-0.59 K/uL Eosinophils # (Auto) 0.18 0-0.5 K/uL Basophils # (Auto) 0.02 0-0.2 K/uL RDW Standard Deviation 55.3 36.4-46.3 fL RDW Coefficient of Variation 18.5 11.5-14.5 % Immature Granulocyte % (Auto) 0.4 % Immature Granulocyte # (Auto) 0.02 0.00-0.02 K/uL Sodium Level 141 136-145 mmol/L Potassium Level 3.4 3.5-5.1 mmol/L Chloride Level 106 98-107 mmol/L Carbon Dioxide Level 28 21-32 mmol/L Anion Gap 7.0 3-11 mmol/L Blood Urea Nitrogen 4 7-18 mg/dl Creatinine 0.85 0.60-1.20 mg/dl Est Creatinine Clear Calc Drug Dose 144.3 ml/min Estimated GFR () 108.1 Estimated GFR (Non- 93.2 BUN/Creatinine Ratio 4.7 10-20 Random Glucose 112 70-99 mg/dl Calcium Level 8.7 8.5-10.1 mg/dl
[2016-09-03] MEDS ORDERED: PRT40 PO (15:40)
--- NOTE | 2016-09-03 15:48 | Discharge Summary ---
Discharge Summary Date of Service Sep 03, 2016. Discharge Summary Admission Date: Aug 31, 2016 at 03:18 Discharge Date: Sep 03, 2016 Discharge Disposition: Home Principal Diagnosis: Hepatic steatosis, Esophagitis Procedures: Gall bladder USD: 1. No acute sonographic abnormality is identified in the right upper quadrant. No gallstones are seen. 2. Hepatomegaly and severe hepatic steatosis. CT ABD: 1. There are no acute infectious or inflammatory findings in the abdomen or pelvis. 2. Hepatomegaly and severe hepatic steatosis. 3. Suspect uterine fibroids. MRCP: Negative study read fatty infiltration of liver. Small lipoma of the duodenal sweep EGD: LA grade B esophagitis Needs repeat EGD in 2 months Consultations: GI Pending Studies/Follow-Up: Follow up with Dr. Tsai on September 08, 2016 at 1:05PM Follow up with your panel installer in 2 months as advised for repeat EGD (endoscopy) as outpatient Medication Reconciliation New Medications: Pantoprazole (Pantoprazole Sodium) 40 Mg Tab 40 MG PO BID for 30 Days, #60 TAB 1 Refill Continued Medications: Control Pills ( Control Pills) Tab 1 TAB PO DAILY, TAB Admission Information HPI (per Admitting provider): The patient is a 26 year old female who presents to the Emergency Room with complaints of worsening upper abdominal pain for the past two days. The pain is severe. The patient also complains of nausea, vomiting, loose and dark stools. She has never had surgery of the abdomen. at present her pain improved after IV pain meds , nausea has improved no fever or chills RUQ Ultrasound was negative for gall stone , gall bladder wall thickening CT abdomen /pelvis -10 mm hypodense mass in rt lower body of pancreas no prior hx of pancreatitis pt drinks alcohol socially , no recent ETOH intake does not smoke Physical Exam (per Admitting): General Appearance: no apparent distress Head: normocephalic, atraumatic Eyes: sclerae normal Respiratory/Chest: lungs clear, normal breath sounds Cardiovascular: regular rate, rhythm Abdomen/GI: soft, + tenderness (rt upper quadrant ) Extremities/Musculoskelatal: no pedal edema Neurologic/Psych: no motor/sensory deficits, alert, oriented x 3 Skin: normal color, warm/dry, no rash Hospital Course Epigastric and RUQ pain: Mild elevated LFTs likely secondary to fatty liver CT ABD: No acute infectious, inflammatory findings Hepatomegaly and severe hepatic steatosis, Possible uterine fibroids Gall bladder USD:No gall stones, hepatomegaly and severe hepatic steatosis S/P MRCP: fatty liver S/P EGD on 09/01/16: LA Grade B esophagitis Needs repeat Endoscopy in 2 months Continue PPI BID Appreciate GI input Pain control and antiemetics PRN Continue IVF Advance diet as tolerated Esophagitis: S/P EGD Continue PPI BID Needs repeat Endoscopy in 2 months and follow up with Diarrhea: Persistent Recheck stool for c.diff H/O Uterine fibroids: No active bleeding currently on OCPs Follow up with OBGYN as outpatient Obesity: BMI:50.9 DVT Px: SCDs DISPOSITION: Plan to discharge home today Follow up with Dr. Tsai on September 08, 2016 at 1:05PM Follow up with your panel installer in 2 months as advised for repeat EGD (endoscopy) as outpatient PROCEDURES: Gall bladder USD: 1. No acute sonographic abnormality is identified in the right upper quadrant. No gallstones are seen. 2. Hepatomegaly and severe hepatic steatosis. CT ABD: 1. There are no acute infectious or inflammatory findings in the abdomen or pelvis. 2. Hepatomegaly and severe hepatic steatosis. 3. Suspect uterine fibroids. MRCP: Negative study read fatty infiltration of liver. Small lipoma of the duodenal sweep EGD: LA grade B esophagitis Needs repeat EGD in 2 months Total time spent on discharge = 35 minutes This includes examination of the patient, discharge planning, medication reconciliation, and communication with other providers. Discharge Instructions Discharge Instructions Date of Service Sep 03, 2016. Admission Reason for Admission: Abdominal Pain, Elevated Bilirubin Discharge Discharge Diagnosis / Problem: Hepatic steatosis, Esophagitis Discharge Goals Goal(s): Decrease discomfort, Improve function Activity Recommendations Activity Limitations: resume your previous activity Exercise/Sports Limitations: as tolerated . Instructions / Follow-Up Instructions / Follow-Up Follow up with Dr. Tsai on September 08, 2016 at 1:05PM Follow up with your panel installer in 2 months as advised for repeat EGD (endoscopy) as outpatient Current Hospital Diet Patient's current hospital diet: Low Fat Diet Discharge Diet Recommended Diet: Low Fat Diet Procedures Procedures Performed: EGD Pending Studies Studies pending at discharge: no Laboratory Results Lipid Panel Test 4/11/17 07:02 Range/Units Triglycerides Level 122 0-150 mg/dl Cholesterol Level 191 0-200 mg/dl HDL Cholesterol 77 mg/dl Cholesterol/HDL Ratio 2.5 LDL Cholesterol, Calculated 90 mg/dl Work Instructions Additional Instructions: Patient was admitted on 08/31/2016 and was discharged on 09/03/16. She can return to work on September 06 2016(Tuesday). Medical Emergencies . Who to Call and When: Medical Emergencies: If at any time you feel your situation is an emergency, please call 911 immediately. . Non-Emergent Contact Non-Emergency issues call your: Primary Care Provider, Property Officer Call Non-Emergent contact if: you have a fever, your pain is not controlled, your pain is worsening, your pain is unusual for you, you have any medication questions . . "Provider Documentation" section prepared by Paulino Harley. VTE Core Measure Inpt VTE Proph given/why not?: Mary Solis, SCD's
[2016-09-03 15:55] VITALS: BP 121/79; PULSE 95; TEMP 37.1; O2SAT 98
[2016-09-29] MEDS ORDERED: CRFUDL PO (17:58)
[2016-09-29] MEDS ORDERED: ZNT150 PO (17:58)
[2016-10-13] MEDS ORDERED: ULT50X PO (10:40)
[2016-11-22] MEDS ORDERED: ULT50X PO (17:48)
[2016-12-09] MEDS ORDERED: METO-157 PO (08:58)
== END 2016-09-03 16:56 | disposition home or self-care (01) | DRG 442 ==
LOC: ENRESERVTM → ENRESERVDT → C.EDB 23:10 → C.MSN 08-31 03:18 → EDBEDREQSVC 08-31 03:27 → EDBEDREQ 08-31 03:27
PROVIDERS: ADMIT Hospitalist; ATTEND Internal Medicine
PROC: 0DJ08ZZ Inspection of Upper Intestinal Tract, Via Natural or Artificial Opening Endoscopic (ICD-10-PCS; principal; 2016-09-01 09:46)
DX: K76.0 Fatty (change of) liver, not elsewhere classified (principal); Z68.43 Body mass index [BMI] 50.0-59.9, adult; K21.0 Gastro-esophageal reflux disease with esophagitis; D25.9 Leiomyoma of uterus, unspecified; E66.9 Obesity, unspecified

== ENCOUNTER 2016-09-22 16:47 | Inpatient (IN) | payer BC ==
[~2016-09-22] VITALS: Ht 167.6 cm; Wt 141.3 kg
[~2016-09-22 16:47] MED LIST changes: -MULT-240 PO; +PRT40 PO
[2016-09-22] MEDS ORDERED: PANT40TA PO (17:06)
[2016-09-22] MEDS ORDERED: MoRPHine SULFATE 10 MG/ML CARP/VIAL IV PRN (17:15)
[2016-09-22] MEDS ORDERED: SODIUM CHLORIDE 0.9% 1000ML 1,000 ML IV ONE (17:15)
--- NOTE | 2016-09-22 17:31 | EMERGENCY ROOM VISIT NOTE ---
History Report prepared by Batsheva: Daily Mullins Under the Supervision of: Dr. Mynor Truong M.D. First contact with patient: 17:04 Chief Complaint: VOMITING Stated Complaint: SHAKING, VOMITING, NAUSEA Nursing Triage Summary: Pt states admitted here recently, having same sx. Pt reports n/v, shaking, upper abd pain that began this morning. History of Present Illness The patient is a 26 year old female who presents to the Emergency Room with complaints of intermittent vomiting beginning earlier today. The patient has been feeling nauseated for the past 2 days. She has not eaten anything in the past 2 days due to her nausea. She states that today she developed diffuse upper abdominal pain. She describes her pain as cramping and rates it as an 8/ 10 in severity. The patient denies eating anything unusual to exacerbate her symptoms. The patient was in the hospital last month from similar symptoms. She states that she was diagnosed with acid reflux and a fatty liver at that time. She has a follow-up endoscopy scheduled for next month. The patient went to an Urgent Care for her current symptoms and was given an anti-emetic. She states that this medication exacerbated her symptoms. She was told that if her symptoms worsened, she should come to the ED for further evaluation. The patient also reports dysuria. She thought that she might have a yeast infection and tried Monistat, but states that it did not help. The patient denies fever, chills, diarrhea, and any pain in her legs. She did not take her medications today. She reports that today she asked for a leave of absence from work. After that, her abdominal pain became much worse and she thinks it could be secondary to stress. She notes that the last year has been very stressful for her. She has seen her PCP for this and he prescribed anti-anxiety medication. She has been taking this for about a month. She has a follow-up appointment with her PCP next week. Source of History: patient Onset: earlier today Position: abdomen Symptom Intensity: 8/10 Quality: other (vomiting) Timing: intermittent Modifying Factors (Worsening): other (anti-emetics, stress) Associated Symptoms: + abdominal pain, + urinary symptoms (dysuria), No chills, No diarrhea, No fevers Review of Systems All systems have been listed, reviewed, and are negative other than those previously mentioned. Please see Additional Medical History Sheet. Past Medical & Surgical Medical Problems: (1) Abdominal pain (2) Abnormal vaginal bleeding (3) Acute pancreatitis (4) Elevated bilirubin (5) Gastritis (6) Morbid obesity (7) Uterine fibroid (8) Uterine fibroid Surgical Problems: (1) History of esophagogastroduodenoscopy (EGD) Family History Diabetes mellitus Heart disease Hypertension Kidney disease Kidney stones Social History Smoking Status: Never Smoker Housing Status: lives alone 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 Current/Historical Medications Scheduled Norethindrone Acetate (Norethindrone Acetate), 5 MG PO DAILY Pantoprazole Sodium (Protonix), 40 MG PO BID Allergies Coded Allergies: No Known Allergies (Unverified , 08/30/16) Physical Exam Vital Signs Date Time Temp Pulse Resp B/P Pulse Ox O2 Delivery O2 Flow Rate FiO2 09/22/16 19:08 129 20 129/105 98 Room Air 09/22/16 17:46 97 Room Air 09/22/16 17:42 122 09/22/16 16:54 36.7 137 20 156/98 98 Room Air Physical Exam GENERAL: Patient awake, alert, oriented x 3. Patient follows commands. Patient does not appear toxic. Patient is adequately hydrated and well- nourished. SKIN: No erythema, pallor, cyanosis or rash HEENT: Normal head, pupils equal, reactive to light and accommodation. Oral cavity and posterior pharynx appear normal. Neck: Without adenopathy, no neck vein distention. LUNGS: Clear to auscultation. No wheezes, no rales, no rhonchi. HEART: No murmurs. No gallops. No rubs ABDOMEN: Morbidly obese, epigastric tenderness across the entire upper abdomen, no pain below the umbilicus. No masses, no rebound, no hepatomegaly or splenomegaly. EXTREMITIES: No signs of trauma or infection NEUROLOGIC: Cranial nerves II-XII within normal limits. No gross motor sensory function deficits. Medical Decision & Procedures ER Provider Diagnostic Interpretation: Radiology results as stated below per my review and radiologist interpretation: ULTRASOUND RIGHT UPPER QUADRANT ABDOMEN CLINICAL HISTORY: Nausea and vomiting. Question pancreatic cyst. COMPARISON STUDY: Abdominal CT dated 08/31/2016. TECHNIQUE: Real-time, grayscale, and color flow sonography of the right upper quadrant of the abdomen was performed. Images are reviewed in the transverse and longitudinal planes. The examination is degraded by large body habitus. FINDINGS: Liver: The liver is enlarged and demonstrates heterogeneously increased echotexture consistent with severe hepatic steatosis. Note that this degrades acoustic penetration of the liver. There is no intrahepatic biliary ductal dilatation. The main portal vein is patent. Gallbladder: The gallbladder is normal in appearance. No gallstones are identified. There is no gallbladder wall thickening or pericholecystic fluid. A sonographic Jefferson's sign is reportedly absent. The common bile duct measures up to 0.5 cm in diameter. Pancreas: Visualized portions of the pancreatic head and body are normal in appearance. The splenic vein is patent. Right kidney: Survey images of the right kidney demonstrate normal size and echotexture. There is no hydronephrosis. Ascites: None. IMPRESSION: 1. No acute sonographic abnormality is identified in the right upper quadrant. No gallstones are seen. 2. The pancreas is normal as visualized. 3. Hepatomegaly and severe hepatic steatosis. Electronically signed by: Mathew Claero M.D. 09/22/2016 8:37 PM Dictated Date/Time: 09/22/2016 8:36 PM Laboratory Results 09/22/16 17:35 Red Blood Count 5.09, Mean Corpuscular Volume 81.5, Mean Corpuscular Hemoglobin 25.9, Mean Corpuscular Hemoglobin Concent 31.8, Mean Platelet Volume 9.9, Neutrophils (%) (Auto) 70.5, Lymphocytes (%) (Auto) 19.8, Monocytes (%) (Auto) 8.6, Eosinophils (%) (Auto) 0.2, Basophils (%) (Auto) 0.5, Neutrophils # (Auto) 3.85, Lymphocytes # (Auto) 1.08, Monocytes # (Auto) 0.47, Eosinophils # (Auto) 0.01, Basophils # (Auto) 0.03 09/22/16 17:35 Test 09/22/16 17:35 09/22/16 19:00 White Blood Count 5.46 K/uL (4.8-10.8) Red Blood Count 5.09 M/uL (4.2-5.4) Hemoglobin 13.2 g/dL (12.0-16.0) Hematocrit 41.5 % (37-47) Mean Corpuscular Volume 81.5 fL (80-100) Mean Corpuscular Hemoglobin 25.9 pg (25-34) Mean Corpuscular Hemoglobin Concent 31.8 g/dl (32-36) Platelet Count 377 K/uL (130-400) Mean Platelet Volume 9.9 fL (7.4-10.4) Neutrophils (%) (Auto) 70.5 % Lymphocytes (%) (Auto) 19.8 % Monocytes (%) (Auto) 8.6 % Eosinophils (%) (Auto) 0.2 % Basophils (%) (Auto) 0.5 % Neutrophils # (Auto) 3.85 K/uL (1.4-6.5) Lymphocytes # (Auto) 1.08 K/uL (1.2-3.4) Monocytes # (Auto) 0.47 K/uL (0.11-0.59) Eosinophils # (Auto) 0.01 K/uL (0-0.5) Basophils # (Auto) 0.03 K/uL (0-0.2) RDW Standard Deviation 56.5 fL (36.4-46.3) RDW Coefficient of Variation 18.9 % (11.5-14.5) Immature Granulocyte % (Auto) 0.4 % Immature Granulocyte # (Auto) 0.02 K/uL (0.00-0.02) Anion Gap 19.0 mmol/L (3-11) Est Creatinine Clear Calc Drug Dose 132.3 ml/min Estimated GFR () 98.2 Estimated GFR (Non- 84.7 BUN/Creatinine Ratio 5.7 (10-20) Calcium Level 9.4 mg/dl (8.5-10.1) Total Bilirubin 1.2 mg/dl (0.2-1) Aspartate Amino Transf (AST/SGOT) 98 U/L (15-37) Alanine Aminotransferase (ALT/SGPT) 61 U/L (12-78) Alkaline Phosphatase 94 U/L (45-117) Total Protein 9.4 gm/dl (6.4-8.2) Albumin 4.4 gm/dl (3.4-5.0) Globulin 5.0 gm/dl (2.5-4.0) Albumin/Globulin Ratio 0.9 (0.9-2) Lipase 1177 U/L (73-393) Human Chorionic Gonadotropin, Qual NEG (NEG) Urine Color YELLOW Urine Appearance TURBID (CLEAR) Urine pH 5.5 (4.5-7.5) Urine Specific [place] 1.030 (1.000-1.030) Urine Protein 2+ (NEG) Urine Glucose (UA) NEG (NEG) Urine Ketones 4+ (NEG) Urine Occult Blood TRACE (NEG) Urine Nitrite NEG (NEG) Urine Bilirubin NEG (NEG) Urine Urobilinogen NEG (NEG) Urine Leukocyte Esterase SMALL (NEG) Urine WBC (Auto) >30 /hpf (0-5) Urine RBC (Auto) 0-4 /hpf (0-4) Urine Hyaline Casts (Auto) 0 /lpf (0-5) Urine Epithelial Cells (Auto) >30 /lpf (0-5) Urine Bacteria (Auto) 4+ (NEG) Urine Pathogenic Casts /lpf (0) Laboratory results as stated above per my review. Medications Administered Medications (Trade) Dose Ordered Sig/Marlin Route Start Time Stop Time Status Last Admin Dose Admin Morphine Sulfate (MoRPHine SULFATE INJ) 8 mg Q1H PRN IV 09/22/16 17:15 09/23/16 00:33 DC 09/22/16 17:45 8 MG Ondansetron HCl 4 mg 4 mg Q1HWA PRN IV 09/22/16 17:15 09/23/16 00:33 DC 09/22/16 22:03 4 MG Sodium Chloride 1,000 ml @ 1,000 mls/hr Q1H ONCE IV 09/22/16 17:15 09/22/16 18:14 DC 09/22/16 17:44 1,000 MLS/HR Promethazine HCl 12.5 mg/Sodium Chloride 50.5 ml @ 204 mls/hr NOW STAT IV 09/22/16 18:04 09/22/16 18:18 DC 09/22/16 18:19 204 MLS/HR Sodium Chloride 1,000 ml @ 500 mls/hr Q2H STAT IV 09/22/16 19:01 09/22/16 21:00 DC 09/22/16 19:08 500 MLS/HR Dextrose/Lactated Ringer's (D5W And Lactated Ringers) 1,000 ml @ 500 mls/hr Q2H IV 09/22/16 19:30 09/22/16 21:29 DC 09/22/16 21:58 500 MLS/HR Morphine Sulfate (MoRPHine SULFATE INJ) 2 mg Q3H PRN IV 09/22/16 19:30 10/06/16 19:29 09/22/16 22:05 2 MG ED Course 170: Past medical records reviewed. The patient was evaluated in room A11B. A complete history and physical examination was performed. 1715: NSS 1000 ml @ 1000 mls/hr IV, Zofran 4 mg IV - PRN, Morphine sulfate 8 mg IV - PRN 1804: Promethazine HCl 12.5 mg/Sodium Chloride 50.5 ml @ 204 mls/hr IV 185: I spoke with Mary Jo Redding PA-C. We discussed the patients results and treatment plan. [facility] 1858: I reassessed the patient at this time. She is feeling better and resting comfortably. I discussed the results and treatment plan with the patient. I answered all pertaining questions that she had. She expressed understanding and verbalized agreement. 1900: NSS 1000 ml @ 500 mls/hr IV Medical Decision Differential diagnoses includes cholelithiasis, cholecystitis, peptic/gastric ulcer disease, gastritis, anxiety, pancreatitis. Multiple labs, urinalysis and imaging were obtained. The patient's lipase is significantly elevated. Ultrasound reveals severe hepatic steatosis. The patient will require further evaluation and IV hydration in the hospital. The patient was kept NPO here in the ED. She did improve with pain meds and IV fluids. Consults Time Called: 1851 Consulting Physician: Mary Jo Redding PA-C Returned Call: 1854 I spoke with Mary Jo Redding PA-C. We discussed the patients results and treatment plan. The patient will be evaluated by the [facility] for further management. Impression Primary Impression: Pancreatitis Scribe Attestation The scribe's documentation has been prepared under my direction and personally reviewed by me in its entirety. I confirm that the note above accurately reflects all work, treatment, procedures, and medical decision making performed by me. Departure Information Dispostion Being Evaluated By Hospitalist Referrals No Doctor, Assigned (PCP) Patient Instructions My [facility] Problem Qualifiers Primary Impression: Pancreatitis Chronicity: acute Pancreatitis type: unspecified pancreatitis type Acute pancreatitis complication: no infection or necrosis Qualified Codes: K85.90 - Acute pancreatitis without necrosis or infection, unspecified
[2016-09-22] MEDS: ONDANSETRON INJ 2 MG/ML 2 ML VIAL IV PRN ×2 (17:45→22:03)
[2016-09-22 17:50] LABS: BASO % 0.5 %; BASO ABS # 0.03 K/uL (0-0.2); COMPLETE YES; EOS % 0.2 %; HEMATOCRIT 41.5 % (37-47); IG% 0.4 %; LYMPH % 19.8 %; LYMPH ABS # 1.08 K/uL (1.2-3.4); MEAN CELL VOLUME 81.5 fL (80-100); MEAN CORPUSCULAR HEMOGLOBIN 25.9 pg (25-34); MEAN CORPUSCULAR HGB CONC 31.8 g/dl (32-36); MEAN PLATELET VOLUME 9.9 fL (7.4-10.4); MONO % 8.6 %; NEUT % 70.5 %; PLATELET COUNT 377 K/uL (130-400); RED BLOOD COUNT 5.09 M/uL (4.2-5.4); WHITE BLOOD COUNT 5.46 K/uL (4.8-10.8)
[2016-09-22] MEDS ORDERED: PROMETHAZINE HCL INJ 12.5 MG in SODIUM CHLORIDE 0.9% 50ML 50 ML IV STA (18:04)
[2016-09-22 18:13] LABS: BUN/CREATININE RATIO 5.7 (10-20); CALCIUM 9.4 mg/dl (8.5-10.1); CREATININE 0.92 mg/dl (0.60-1.20)
[2016-09-22 18:25] LABS: ALB/GLOB RATIO 0.9 (0.9-2)
[2016-09-22] MEDS ORDERED: SODIUM CHLORIDE 0.9% 1000ML 1,000 ML IV STA (19:01)
[2016-09-22 19:16] LABS: URINE APPEARANCE TURBID (CLEAR); URINE BILIRUBIN NEG (NEG); URINE COLOR YELLOW; URINE EPITHELIAL CELL AUTO >30 /lpf (0-5); URINE NITRITE NEG (NEG); URINE PH 5.5 (4.5-7.5); UROBILINOGEN NEG (NEG); ZZUR CULT IF INDIC CLEAN CATCH YES
[2016-09-22 19:18] LABS: MANUAL MICROSCOPIC REQUIRED? NO; REVIEW REQ? YES
[2016-09-22] MEDS ORDERED: D5W AND LACTATED RINGERS 1,000 ML IV SCH (19:30)
[2016-09-22] MEDS ORDERED: ACETAMINOPHEN 325 MG TAB PO PRN (19:30)
[2016-09-22] MEDS ORDERED: ONDANSETRON INJ 2 MG/ML 2 ML VIAL IV PRN (19:30)
[2016-09-22] MEDS ORDERED: NORE1TAB90 PO (19:33)
--- NOTE | 2016-09-22 19:46 | History and Physical ---
History & Physical Date & Time of Service: September 22, 2016 at 19:34 Chief Complaint: Shaking, Vomiting, Nausea Primary Care Physician: Logan Tsai D.OSybil History of Present Illness Source: patient, clinic records, hospital records Patient seen and examined. 26 year old female with PMHx of uterine fibroid presents to the ED complaining of abdominal pain x 3 days. Patient reports she has sharp and crampy abdominal pain in her RUQ and LUQ. She rates it as an 8/ 10. She has associated nausea, and vomiting. She was recently hospitalized in August with similar symptoms and had an MRCP, and EGD which showed a fatty liver and gastritis. She was treated discharged home with PPI and reports feeling well until a few days ago. She denies fevers, chills, chest pain, SOB, diarrhea , calf pain and edema. She denies any OTC meds. She is a social drinker and will have a few cocktails on the weekends. She still has her gallbladder. In the ED she is tachycardic, VS are otherwise stable, Lipase is >1000, LFTs are mildly elevated. Pancreatic US is pending. She received IVFs, antiemetics and morphine. She will be admitted for further workup and treatment. Past Medical/Surgical History Medical Problems: (1) Abnormal vaginal bleeding Status: Resolved (2) Gastritis Status: Chronic (3) Morbid obesity Status: Chronic (4) Uterine fibroid Status: Resolved (5) Uterine fibroid Status: Chronic Surgical Problems: (1) History of esophagogastroduodenoscopy (EGD) Status: Chronic Family History Diabetes mellitus Heart disease Hypertension Kidney disease Kidney stones Social History Smoking Status: Never Smoker Alcohol Use: socially Marital Status: single Housing status: lives alone 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 Allergies Coded Allergies: No Known Allergies (Unverified , 08/30/16) Home Medications Scheduled Norethindrone Acetate (Norethindrone Acetate), 5 MG PO DAILY Pantoprazole Sodium (Protonix), 40 MG PO BID Review of Systems Constitutional: No chills, No fever Eyes: No worsening of vision ENT: No nasal symptoms Respiratory: No cough, No shortness of breath Cardiovascular: No chest pain, No edema, No palpitations Abdomen: + nausea, + pain, + vomiting, No GI bleeding, No constipation, No diarrhea Musculoskeletal: No calf pain, No swelling Genitourinary - Female: + dysuria Neurologic: No numbness/tingling, No vertigo Psychiatric: No anxiety Endocrine: No fatigue Hematologic / Lymphatic: No abnormal bleeding/bruising, No clotting problems Integumentary: No itch, No rash Allergic / Immunologic: No environmental allergies Physical Exam Vital Signs Date Time Temp Pulse Resp B/P Pulse Ox O2 Delivery O2 Flow Rate FiO2 09/22/16 19:08 129 20 129/105 98 Room Air 09/22/16 17:46 97 Room Air 09/22/16 17:42 122 09/22/16 16:54 36.7 137 20 156/98 98 Room Air General Appearance: + pertinent finding (Pleasant obese 26 year old female lying in bed in NAD ) Head: normocephalic, atraumatic Eyes: PERRL, EOMI, sclerae normal ENT: hearing grossly normal, pharynx normal Neck: supple, no JVD Respiratory/Chest: chest non-tender, lungs clear, normal breath sounds, no respiratory distress, no accessory muscle use Cardiovascular: no edema, no gallop, no JVD, no murmur, normal peripheral pulses, + tachycardia (120s, regular ) Abdomen/GI: normal bowel sounds, soft, + tenderness (primarily RUQ ) Back: normal inspection, no muscle spasm Extremities/Musculoskelatal: no calf tenderness, normal capillary refill, no pedal edema Neurologic/Psych: no motor/sensory deficits, alert, oriented x 3 Skin: normal color, warm/dry, no rash Lymphatic: no adenopathy Diagnostics Laboratory Results Results Past 24 Hours Test 09/22/16 17:35 09/22/16 19:00 09/22/16 19:33 Range/Units White Blood Count 5.46 4.8-10.8 K/uL Red Blood Count 5.09 4.2-5.4 M/uL Hemoglobin 13.2 12.0-16.0 g/dL Hematocrit 41.5 37-47 % Mean Corpuscular Volume 81.5 80-100 fL Mean Corpuscular Hemoglobin 25.9 25-34 pg Mean Corpuscular Hemoglobin Concent 31.8 32-36 g/dl Platelet Count 377 130-400 K/uL Mean Platelet Volume 9.9 7.4-10.4 fL Neutrophils (%) (Auto) 70.5 % Lymphocytes (%) (Auto) 19.8 % Monocytes (%) (Auto) 8.6 % Eosinophils (%) (Auto) 0.2 % Basophils (%) (Auto) 0.5 % Neutrophils # (Auto) 3.85 1.4-6.5 K/uL Lymphocytes # (Auto) 1.08 1.2-3.4 K/uL Monocytes # (Auto) 0.47 0.11-0.59 K/uL Eosinophils # (Auto) 0.01 0-0.5 K/uL Basophils # (Auto) 0.03 0-0.2 K/uL RDW Standard Deviation 56.5 36.4-46.3 fL RDW Coefficient of Variation 18.9 11.5-14.5 % Immature Granulocyte % (Auto) 0.4 % Immature Granulocyte # (Auto) 0.02 0.00-0.02 K/uL Sodium Level 138 136-145 mmol/L Potassium Level 4.0 3.5-5.1 mmol/L Chloride Level 100 98-107 mmol/L Carbon Dioxide Level 19 21-32 mmol/L Anion Gap 19.0 3-11 mmol/L Blood Urea Nitrogen 5 7-18 mg/dl Creatinine 0.92 0.60-1.20 mg/dl Est Creatinine Clear Calc Drug Dose 132.3 ml/min Estimated GFR () 98.2 Estimated GFR (Non- 84.7 BUN/Creatinine Ratio 5.7 10-20 Random Glucose 69 70-99 mg/dl Calcium Level 9.4 8.5-10.1 mg/dl Total Bilirubin 1.2 0.2-1 mg/dl Aspartate Amino Transf (AST/SGOT) 98 15-37 U/L Alanine Aminotransferase (ALT/SGPT) 61 12-78 U/L Alkaline Phosphatase 94 45-117 U/L Total Protein 9.4 6.4-8.2 gm/dl Albumin 4.4 3.4-5.0 gm/dl Globulin 5.0 2.5-4.0 gm/dl Albumin/Globulin Ratio 0.9 0.9-2 Lipase 1177 73-393 U/L Urine Color YELLOW Urine Appearance TURBID CLEAR Urine pH 5.5 4.5-7.5 Urine Specific [place] 1.030 1.000-1.030 Urine Protein 2+ NEG Urine Glucose (UA) NEG NEG Urine Ketones 4+ NEG Urine Occult Blood TRACE NEG Urine Nitrite NEG NEG Urine Bilirubin NEG NEG Urine Urobilinogen NEG NEG Urine Leukocyte Esterase SMALL NEG Microbiology Results 09/22/16 Urine Culture, Received Pending Impression Assessment and Plan 26 year old female presents to the ED complaining of abdominal pain ACUTE PANCREATITIS -admit to med/surg -Lipase 1177, Bicarb 19, AG 19, AST 98, total bili 1.2 -Workup on previous admission, MRCP: fatty liver ,EGD - gastritis, Triglycerides 122 -RUQ US pending -Aggressive IVF hydration with LR -Pain control with morphine prn -antiemetics prn -npo except meds -GI consult for further management -CBC, CMP, Lipase in AM DYSURIA -UA pending H/O GASTRITIS -continue PPI H/O UTERINE FIBROID -f/u with [facility] [employer] [facility] as scheduled ORAL CONTRACEPTIVE USE -continue DVT PROPHYLAXIS: SCDs CODE STATUS: FULL CODE DISPO:In my clinical judgment this beneficiary meets acute admission criteria, established by [facility], that includes being hospitalized through two midnights. Patient seen in collaboration with Dr. Lara ADDENDUM: This is a 26 year old obese female with PMH of uterine fibroids, hx. of gastritis and recurrent upper abdominal pain presents with epigastric and RUQ abdominal pain. She was here with similar symptoms during her previous admission in August of 2016; had an EGD, MRCP, RUQ U/S done which did not show much besides gastritis, which she was being treated for with Protonix. When she presented here; her Lipase was elevated to > 1000; pain improved with medications; she is laying comfortably. Does c/o dysuria; which began today. VITALS: Last Vital Signs Documentation Date Time Temp Pulse Resp B/P Pulse Ox O2 Delivery O2 Flow Rate FiO2 09/22/16 20:12 98 Room Air 09/22/16 19:08 129 20 129/105 09/22/16 16:54 36.7 GEN: obese, no significant distress CVS: +S1, S2, +tachycardia LUNGS: CTA b/l ABD: +tenderness at the epigastric and RUQ abdomen, tenderness to mild palpation Acute Pancreatitis possible stone? no findings during previous admission, w/up included: EGD, MRCP , RUQ U/S lipase > 1000 IVFs, NPO status for now, anti-emetics, analgesics PRN U/S pending GI consultation placed for further input continue Protonix for her gastritis VTE Prophylaxis VTE Risk Assessment Done? Y/N: Yes Risk Level: Low
[2016-09-22 19:55] LABS: PREG INTERNAL NEGATIVE QC NEG CLEAR BACKGROUND; PREG INTERNAL POSITIVE QC POS CONTROL LINE
[2016-09-22 20:12] VITALS: O2SAT 98; Ht 167.6 cm; Wt 141.3 kg
--- NOTE | 2016-09-22 20:39 | DIAGNOSTIC IMAGING REPORT ---
ULTRASOUND RIGHT UPPER QUADRANT ABDOMEN CLINICAL HISTORY: Nausea and vomiting. Question pancreatic cyst. COMPARISON STUDY: Abdominal CT dated 08/31/2016. TECHNIQUE: Real-time, grayscale, and color flow sonography of the right upper quadrant of the abdomen was performed. Images are reviewed in the transverse and longitudinal planes. The examination is degraded by large body habitus. FINDINGS: Liver: The liver is enlarged and demonstrates heterogeneously increased echotexture consistent with severe hepatic steatosis. Note that this degrades acoustic penetration of the liver. There is no intrahepatic biliary ductal dilatation. The main portal vein is patent. Gallbladder: The gallbladder is normal in appearance. No gallstones are identified. There is no gallbladder wall thickening or pericholecystic fluid. A sonographic Jefferson's sign is reportedly absent. The common bile duct measures up to 0.5 cm in diameter. Pancreas: Visualized portions of the pancreatic head and body are normal in appearance. The splenic vein is patent. Right kidney: Survey images of the right kidney demonstrate normal size and echotexture. There is no hydronephrosis. Ascites: None. IMPRESSION: 1. No acute sonographic abnormality is identified in the right upper quadrant. No gallstones are seen. 2. The pancreas is normal as visualized. 3. Hepatomegaly and severe hepatic steatosis. Electronically signed by: Mathew Calero M.D. 09/22/2016 8:37 PM Dictated Date/Time: 09/22/2016 8:36 PM
[2016-09-22] MEDS: D5W AND LACTATED RINGERS 1,000 ML IV SCH ×2 (22:00→23:55)
[2016-09-22] MEDS: MoRPHine SULFATE 2 MG/ML CARP IV PRN (22:05)
[2016-09-22] MEDS: PANTOprazole SOD 40 MG TAB PO SCH (22:15)
[2016-09-22 23:15] VITALS: BP 144/88; PULSE 113; TEMP 37; O2SAT 97
[2016-09-22] MEDS ORDERED: BCPILLS PO (23:40)
[2016-09-23] MEDS: PROMETHAZINE HCL INJ 12.5 MG in SODIUM CHLORIDE 0.9% 50ML 50 ML IV PRN ×2 (00:41→22:06)
[2016-09-23] MEDS: MoRPHine SULFATE 2 MG/ML CARP IV PRN (01:10)
[2016-09-23] MEDS: D5W AND LACTATED RINGERS 1,000 ML IV SCH ×4 (05:15→22:11)
[2016-09-23 06:59] LABS: HEMATOCRIT 36.9 % (37-47); MEAN CELL VOLUME 82.9 fL (80-100); MEAN CORPUSCULAR HEMOGLOBIN 26.3 pg (25-34); MEAN CORPUSCULAR HGB CONC 31.7 g/dl (32-36); MEAN PLATELET VOLUME 10.2 fL (7.4-10.4); PLATELET COUNT 280 K/uL (130-400); RED BLOOD COUNT 4.45 M/uL (4.2-5.4); WHITE BLOOD COUNT 4.38 K/uL (4.8-10.8)
[2016-09-23 07:04] VITALS: BP 133/85; PULSE 110; TEMP 37.3; O2SAT 97
[2016-09-23 07:45] LABS: ALB/GLOB RATIO 0.9 (0.9-2); BUN/CREATININE RATIO 3.7 (10-20); CALCIUM 9.1 mg/dl (8.5-10.1); CREATININE 0.97 mg/dl (0.60-1.20); POTASSIUM 3.4 mmol/L (3.5-5.1)
[2016-09-23] MEDS: PANTOprazole SOD 40 MG TAB PO SCH ×2 (07:57→20:59)
[2016-09-23] MEDS: NORETHINDRONE ACETATE 5 MG TAB PO SCH (07:57)
[2016-09-23] MEDS ORDERED: HYDROmorphone INJ 1 MG/ML SYR IV ONE (10:45)
--- NOTE | 2016-09-23 13:28 | Gastrointestinal Consultation ---
Gastrointestinal Consultation Date of Consultation: September 23, 2016 Attending Physician: Lacy Muñoz Consulting Physician: Eduar Lai Reason for Consultation: Pancreatitis History of Present Illness Patient is a 26 year old female w PMHx of gastritis, uterine fibroid, esophagitis found on recent EGD who presented to ED w c/o abd pain on RUQ and LUQ areas which she described as sharp and crampy. She has associated nausea, vomiting. She had similar symptoms when she was hospitalized last month. Had gallbladder u/s, CT abd/pelvis, MRI/MRCP which showed hepatic steatosis w/o signs of choledocholithiasis, cholelithiasis. LFTs mildly elevated then but may be related to hepatic steatosis. She did have EGD which showed LA Grade B esophagitis, due for repeat EGD on 11/01/16. Upon evaluation, she was noted to have also mildly elevated LFTs: Tbili 1.2, AST 98, ALT 61, Alk phos 94. UPT negative, Lipase 1300s. She was admitted for pancreatitis. Pancreas u/s showed normal pancreas, no gallstones, and severe hepatic steatosis w hepatomegaly. She denies tobacco use. She does drink ETOH socially. Last weekend drank 4 cocktails each on Tuesday and Tuesday. She had TG previously checked on 08/31, it was 122. She mentioned mother had hx of RA, two distant relatives had pancreatitis. This AM she reports abd pain is still present along w nausea, but improving. Hasn't moved bowels. She had been NPO, on DLR IVF. LFTs and Lipase similar values. Past Medical/Surgical History Medical Problems: (1) Dehydration Status: Acute (2) Intractable abdominal pain Status: Acute (3) Pancreatic mass Status: Acute (4) Pancreatitis Status: Acute Past Medical History: See above Family History Diabetes mellitus Heart disease Hypertension Kidney disease Kidney stones Social History Smoking Status: Never Smoker Alcohol Use: occasionally Drug Use: none Marital Status: single Housing Status: lives alone 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 Allergies Coded Allergies: No Known Allergies (Unverified , 08/30/16) Current Medications Home Meds and Scripts Medications Dose Route/Sig Max Daily Dose Days Date Category Dose Instructions Norethindrone Acetate 5 Mg Tab 5 Mg PO DAILY 09/22/16 Reported 1 TABLET FOUR TIMES A DAY FOR FOUR DAYS, 1 TABLET THREE TIMES A DAY FOR THREE DAYS, 1 TABLET TWO TIMES A DAY FOR TWO DAYS, 1 TABLET ONCE A DAY UNTIL ALL FINISHED. Protonix (Pantoprazole Sodium) 40 Mg Tab 40 Mg PO BID 09/22/16 Reported Review of Systems Constitutional: No chills, No fever, No sweats Respiratory: No cough, No shortness of breath Cardiac: No chest pain, No edema Abdomen: + nausea, + pain, No vomiting Skin: No itch, No rash Physical Exam Date Time Temp Pulse Resp B/P Pulse Ox O2 Delivery O2 Flow Rate FiO2 09/23/16 07:40 Room Air 09/23/16 07:04 37.3 110 20 133/85 97 Room Air 09/22/16 23:40 Room Air 09/22/16 23:15 37.0 113 20 144/88 97 Room Air 09/22/16 20:35 101 16 141/85 97 Room Air 09/22/16 20:12 98 Room Air 09/22/16 19:08 129 20 129/105 98 Room Air 09/22/16 17:46 97 Room Air 09/22/16 17:42 122 09/22/16 16:54 36.7 137 20 156/98 98 Room Air General Appearance: no apparent distress, + obese Eyes: normal inspection, PERRL, EOMI Neck: supple, no JVD, trachea midline Respiratory/Chest: normal breath sounds, no respiratory distress, no accessory muscle use Cardiovascular: regular rate, rhythm, no gallop, no murmur Abdomen: normal bowel sounds, soft, + tenderness (epigastric area) Extremities: normal inspection, no pedal edema, no calf tenderness Neurologic/Psych: alert, normal mood/affect, oriented x 3 Skin: normal color, no jaundice, no rash Laboratory Results Last 24 Hours Test 09/22/16 17:35 09/22/16 19:00 09/23/16 06:28 White Blood Count 5.46 K/uL 4.38 K/uL Red Blood Count 5.09 M/uL 4.45 M/uL Hemoglobin 13.2 g/dL 11.7 g/dL Hematocrit 41.5 % 36.9 % Mean Corpuscular Volume 81.5 fL 82.9 fL Mean Corpuscular Hemoglobin 25.9 pg 26.3 pg Mean Corpuscular Hemoglobin Concent 31.8 g/dl 31.7 g/dl Platelet Count 377 K/uL 280 K/uL Mean Platelet Volume 9.9 fL 10.2 fL Neutrophils (%) (Auto) 70.5 % Lymphocytes (%) (Auto) 19.8 % Monocytes (%) (Auto) 8.6 % Eosinophils (%) (Auto) 0.2 % Basophils (%) (Auto) 0.5 % Neutrophils # (Auto) 3.85 K/uL Lymphocytes # (Auto) 1.08 K/uL Monocytes # (Auto) 0.47 K/uL Eosinophils # (Auto) 0.01 K/uL Basophils # (Auto) 0.03 K/uL RDW Standard Deviation 56.5 fL 58.7 fL RDW Coefficient of Variation 18.9 % 19.0 % Immature Granulocyte % (Auto) 0.4 % Immature Granulocyte # (Auto) 0.02 K/uL Sodium Level 138 mmol/L 140 mmol/L Potassium Level 4.0 mmol/L 3.4 mmol/L Chloride Level 100 mmol/L 104 mmol/L Carbon Dioxide Level 19 mmol/L 26 mmol/L Anion Gap 19.0 mmol/L 10.0 mmol/L Blood Urea Nitrogen 5 mg/dl 4 mg/dl Creatinine 0.92 mg/dl 0.97 mg/dl Est Creatinine Clear Calc Drug Dose 132.3 ml/min 125.5 ml/min Estimated GFR () 98.2 92.1 Estimated GFR (Non- 84.7 79.5 BUN/Creatinine Ratio 5.7 3.7 Random Glucose 69 mg/dl 96 mg/dl Calcium Level 9.4 mg/dl 9.1 mg/dl Total Bilirubin 1.2 mg/dl 1.5 mg/dl Aspartate Amino Transf (AST/SGOT) 98 U/L 62 U/L Alanine Aminotransferase (ALT/SGPT) 61 U/L 52 U/L Alkaline Phosphatase 94 U/L 78 U/L Total Protein 9.4 gm/dl 7.9 gm/dl Albumin 4.4 gm/dl 3.8 gm/dl Globulin 5.0 gm/dl 4.1 gm/dl Albumin/Globulin Ratio 0.9 0.9 Lipase 1177 U/L 1339 U/L Human Chorionic Gonadotropin, Qual NEG Urine Color YELLOW Urine Appearance TURBID Urine pH 5.5 Urine Specific [place] 1.030 Urine Protein 2+ Urine Glucose (UA) NEG Urine Ketones 4+ Urine Occult Blood TRACE Urine Nitrite NEG Urine Bilirubin NEG Urine Urobilinogen NEG Urine Leukocyte Esterase SMALL Urine WBC (Auto) >30 /hpf Urine RBC (Auto) 0-4 /hpf Urine Hyaline Casts (Auto) 0 /lpf Urine Epithelial Cells (Auto) >30 /lpf Urine Bacteria (Auto) 4+ Urine Pathogenic Casts /lpf Magnesium Level 2.0 mg/dl Impression Patient is a 26 year old female currently admitted for pancreatitis. Mild LFT elevation including Tbili of 1.5 though she does have severe hepatic steatosis. Imaging studies (less than 1 month ago: Gallbladder u/s, CT abd/pelvis, MRI/MRCP ) w/o signs of cholelithiasis or choledocholithiasis. She does drink ETOH socially - had total around 8 cocktails last weekend. ? ETOH induced pancreatitis. Plan - OK for ice chips and sips; CL diet by tonight if improving - IVF support: DLR@ 200ml/hr. Monitor Hct and Cr. - Monitor LFTs and Lipase - Advised to abstain from ETOH - Discussed w Dr. Lai: no need for EUS, just EGD repeat to re-eval esophagitis on 11/01/16 as planned. I have seen, examined and agree with the plan as outlined by RITA Grant as above. -exam reveals soft abd -Uncomplicated pancreatitis likely due to Etoh. No signs of end organ dysfunction -IVF, pain control
[2016-09-23 15:50] VITALS: BP 139/84; PULSE 87; TEMP 36.9; O2SAT 99
--- NOTE | 2016-09-23 17:56 | Progress Note ---
Internal Med Progress Note Date of Service: September 23, 2016. Provider Documentation: SUBJECTIVE: still having epigastric discomfort -improved since admission , no nausea diet advanced to clears by GI , tolerating well OBJECTIVE: Vital Signs-as noted below Exam: General-no sign of distress Eyes-sclera non icteric Lungs-CTA Heart-regular S1/S2 Abdomen-soft, non tender Extremities-no rash or deformity Neuro-AAO x3, no focal neurological deficit Lab data as noted below. ASSESSMENT & PLAN: 26 year old female presents to the ED complaining of RUQ abdominal pain found to have elevated lipase /acute pancreatitis ACUTE PANCREATITIS -Lipase 1177-> 1300 -had similar symptom few weeks back requiring admission at [facility] , Had gallbladder USG , CT abdomen/pelvis , MRI /MRCP shows hepatic steatosis , no sign of choledocholithiasis -Workup on previous admission, MRCP: fatty liver ,EGD - gastritis, Triglycerides 122 -RUQ US : 1. No acute sonographic abnormality is identified in the right upper quadrant. No gallstones are seen. 2. The pancreas is normal as visualized. 3. Hepatomegaly and severe hepatic steatosis. -pt is provided bowel rest with ice chips and sips -diet advanced to clears after GI eval -Pain control with morphine prn -changed to IV Dilaudid as pt was complaining of having itching -nausea has resolved, tolerating clears -GI consult appreciated , recommend cont IV fluid -mild elevation of LFT possible due to hepatic steatosis pt had EGD done in last admission shows grade B esophagitis pt is continued on PPI due for repeat EGD 11/01/2016 repeat Lipase, LFT in AM per GI -no further GI intervention needed /no EUS repeat EGD to re-evaluate esophagitis on 11/01/16 as planned acute pancreatitis could possibly due to Alcohol induced pt mentions of being a social drinker , OK to avoid alcohol in future DYSURIA/POSSIBLE UTI -UA _ leukocyte esterase , trace occult blood pt complains of dysuria /increased frequency Urine culture -pin point growth , re incubating -ordered for Cipro empirically -repeat culture ordered H/O GASTRITIS -continue PPI H/O UTERINE FIBROID -f/u with [employer] as scheduled ORAL CONTRACEPTIVE USE hold in setting of acute pancreatitis /mild elevation of LFT 's can be resumed as out patient DVT PROPHYLAXIS: moderate risk sub q Lovenox CODE STATUS: FULL CODE DISPOSITION Discharge home when medically stable Medicine follow up with Dr Logan Tsai GI follow up for out patient EGD on 11/01/2016 as scheduled Vital Signs: Date Time Temp Pulse Resp B/P Pulse Ox O2 Delivery O2 Flow Rate FiO2 09/23/16 18:20 36.1 58 16 128/82 98 1.0 09/23/16 15:50 36.9 87 20 139/84 99 Room Air 09/23/16 15:45 Room Air 09/23/16 07:40 Room Air 09/23/16 07:04 37.3 110 20 133/85 97 Room Air 09/22/16 23:40 Room Air 09/22/16 23:15 37.0 113 20 144/88 97 Room Air 09/22/16 20:35 101 16 141/85 97 Room Air Lab Results: Results Past 24 Hours Test 09/23/16 06:28 Range/Units White Blood Count 4.38 4.8-10.8 K/uL Red Blood Count 4.45 4.2-5.4 M/uL Hemoglobin 11.7 12.0-16.0 g/dL Hematocrit 36.9 37-47 % Mean Corpuscular Volume 82.9 80-100 fL Mean Corpuscular Hemoglobin 26.3 25-34 pg Mean Corpuscular Hemoglobin Concent 31.7 32-36 g/dl RDW Standard Deviation 58.7 36.4-46.3 fL RDW Coefficient of Variation 19.0 11.5-14.5 % Platelet Count 280 130-400 K/uL Mean Platelet Volume 10.2 7.4-10.4 fL Sodium Level 140 136-145 mmol/L Potassium Level 3.4 3.5-5.1 mmol/L Chloride Level 104 98-107 mmol/L Carbon Dioxide Level 26 21-32 mmol/L Anion Gap 10.0 3-11 mmol/L Blood Urea Nitrogen 4 7-18 mg/dl Creatinine 0.97 0.60-1.20 mg/dl Est Creatinine Clear Calc Drug Dose 125.5 ml/min Estimated GFR () 92.1 Estimated GFR (Non- 79.5 BUN/Creatinine Ratio 3.7 10-20 Random Glucose 96 70-99 mg/dl Calcium Level 9.1 8.5-10.1 mg/dl Magnesium Level 2.0 1.8-2.4 mg/dl Total Bilirubin 1.5 0.2-1 mg/dl Aspartate Amino Transf (AST/SGOT) 62 15-37 U/L Alanine Aminotransferase (ALT/SGPT) 52 12-78 U/L Alkaline Phosphatase 78 45-117 U/L Total Protein 7.9 6.4-8.2 gm/dl Albumin 3.8 3.4-5.0 gm/dl Globulin 4.1 2.5-4.0 gm/dl Albumin/Globulin Ratio 0.9 0.9-2 Lipase 1339 73-393 U/L
[2016-09-23 18:20] VITALS: BP 128/82; PULSE 58; TEMP 36.1; O2SAT 98
[2016-09-23] MEDS ORDERED: HYDROmorphone INJ 1 MG/ML SYR ONE (19:44)
[2016-09-23] MEDS ORDERED: NURSING VERBAL MED ORDER ONE (20:15)
[2016-09-23] MEDS ORDERED: POTASSIUM CHLR 10 MEQ / WTR 10 MEQ in PREMIXED WATER 100 ML IV ONE (20:30)
[2016-09-23] MEDS: CIPROFLOXACIN / D5W 400 MG in PREMIXED IN D5W 200 ML IV SCH (21:00)
[2016-09-23 22:50] VITALS: BP 143/94; PULSE 97; TEMP 36.9; O2SAT 97
[2016-09-24] MEDS: D5W AND LACTATED RINGERS 1,000 ML IV SCH ×5 (03:19→23:42)
[2016-09-24 07:25] VITALS: O2SAT 97
[2016-09-24 07:46] LABS: BUN/CREATININE RATIO 2.6 (10-20); CALCIUM 8.7 mg/dl (8.5-10.1); CREATININE 0.7 mg/dl (0.60-1.20); MAGNESIUM 1.8 mg/dl (1.8-2.4); POTASSIUM 3.6 mmol/L (3.5-5.1)
[2016-09-24 07:53] VITALS: BP 134/93; PULSE 85; TEMP 37.2; O2SAT 98
[2016-09-24] MEDS: NORETHINDRONE ACETATE 5 MG TAB PO SCH (08:43)
[2016-09-24] MEDS: PANTOprazole SOD 40 MG TAB PO SCH ×2 (08:43→20:35)
[2016-09-24] MEDS: CIPROFLOXACIN / D5W 400 MG in PREMIXED IN D5W 200 ML IV SCH ×2 (08:43→20:35)
--- NOTE | 2016-09-24 12:03 | Gastroenterology Progress Note ---
Progress Note Date of Service: September 24, 2016 Subjective Pt evaluation today including: conversation w/ patient, conversation w/ family , physical exam, chart review, lab review, review of inpatient medication list Pt reports still having abd pain across upper abd area. Tried CL diet and felt nauseated. Teary during conversation Afebrile overnight. Lipase elevated to 2745 Review of Systems Constitutional: No chills, No fever Respiratory: No cough, No shortness of breath Cardiac: No chest pain Abdomen: + nausea, + pain, + vomiting, No diarrhea Medications Current Inpatient Medications Medications (Trade) Dose Ordered Sig/Marlin Route Start Time Stop Time Status Last Admin Dose Admin Acetaminophen (Tylenol Tab) 650 mg Q4H PRN PO 09/22/16 19:30 10/22/16 19:29 Ondansetron HCl 4 mg 4 mg Q6H PRN IV 09/22/16 19:30 10/22/16 19:29 Promethazine HCl/ Sodium Chloride (Phenergan Inj/ Nss 50ml) 50.5 ml @ 204 mls/hr Q6H PRN IV 09/22/16 19:45 10/22/16 19:44 09/23/16 22:06 204 MLS/HR Norethindrone Acetate (Aygestin Tab) 5 mg DAILY PO 09/23/16 09:00 10/23/16 08:59 09/24/16 08:43 5 MG Pantoprazole Sodium 40 mg 40 mg BID PO 09/22/16 21:00 10/22/16 20:59 09/24/16 08:43 40 MG Dextrose/Lactated Ringer's (D5W And Lactated Ringers) 1,000 ml @ 200 mls/hr Q5H IV 09/22/16 21:30 10/22/16 21:29 09/24/16 07:52 200 MLS/HR Diphenhydramine HCl (Benadryl Cap) 25 mg Q6H PRN PO 09/23/16 03:45 10/23/16 03:44 09/23/16 10:32 25 MG Hydromorphone HCl 1 mg 1 mg Q4 PRN IV 09/23/16 19:45 10/07/16 19:44 Ciprofloxacin/ Dextrose/Prmx (Cipro / D5w/ Premixed D5W) 200 ml @ 100 mls/hr Q12 IV 09/23/16 21:00 09/28/16 20:59 09/24/16 08:43 100 MLS/HR Objective Vital Signs Date Time Temp Pulse Resp B/P Pulse Ox O2 Delivery O2 Flow Rate FiO2 09/24/16 07:53 37.2 85 20 134/93 98 Room Air 09/24/16 07:25 97 Room Air 09/23/16 23:51 Room Air 09/23/16 22:50 36.9 97 16 143/94 97 Room Air 09/23/16 18:20 36.1 58 16 128/82 98 1.0 09/23/16 15:50 36.9 87 20 139/84 99 Room Air 09/23/16 15:45 Room Air Physical Exam General Appearance: WD/WN, + mild distress, + obese Eyes: normal inspection, PERRL, EOMI Neck: supple, no JVD, trachea midline Respiratory/Chest: normal breath sounds, no respiratory distress, no accessory muscle use Cardiovascular: regular rate, rhythm, no gallop, no murmur Abdomen: normal bowel sounds, soft, + tenderness (across upper abd area) Extremities: normal inspection, no pedal edema, no calf tenderness Neurologic/Psych: alert, normal mood/affect, oriented x 3 Skin: normal color, no jaundice, no rash Laboratory Results Last 24 Hours Test 09/24/16 06:50 Sodium Level 141 mmol/L Potassium Level 3.6 mmol/L Chloride Level 107 mmol/L Carbon Dioxide Level 26 mmol/L Anion Gap 8.0 mmol/L Blood Urea Nitrogen 2 mg/dl Creatinine 0.70 mg/dl Est Creatinine Clear Calc Drug Dose 173.9 ml/min Estimated GFR () 136.7 Estimated GFR (Non- 117.9 BUN/Creatinine Ratio 2.6 Random Glucose 111 mg/dl Calcium Level 8.7 mg/dl Magnesium Level 1.8 mg/dl Total Bilirubin 1.2 mg/dl Direct Bilirubin 0.3 mg/dl Aspartate Amino Transf (AST/SGOT) 58 U/L Alanine Aminotransferase (ALT/SGPT) 42 U/L Alkaline Phosphatase 63 U/L Total Protein 6.5 gm/dl Albumin 3.1 gm/dl Lipase 2745 U/L Assessment and Plan Impression Patient is a 26 year old female currently admitted for pancreatitis. Mild LFT elevation including Tbili of 1.5 though she does have severe hepatic steatosis. Imaging studies (less than 1 month ago: Gallbladder u/s, CT abd/pelvis, MRI/MRCP ) w/o signs of cholelithiasis or choledocholithiasis. She does drink ETOH socially - had total around 8 cocktails last weekend. ? ETOH induced pancreatitis. Lipase increasing, she had nausea, abd pain persist w CL diet. Plan - Back to NPO w ice chips and sips today - IVF support: DLR@ 200ml/hr. Monitor Hct and Cr. - Obtain pancreas CT to r/o fluid collection/abscess development - Monitor LFTs and Lipase - Advised to abstain from ETOH - Discussed w Dr. Lai: no need for EUS, just EGD repeat to re-eval esophagitis on 11/01/16 as planned. I have seen, examined and agree with the plan as outlined by RITA Grant as above. -exam reveals soft abd -still with some pain-CT scan today
--- NOTE | 2016-09-24 14:10 | DIAGNOSTIC IMAGING REPORT ---
CT SCAN OF THE ABDOMEN COMBO PANCREAS PROTOCOL CLINICAL HISTORY: Pancreatitis. Epigastric abdominal pain. COMPARISON STUDY: Abdominal CT dated 08/31/2016. Abdominal ultrasound dated 09/22/2016. MRCP dated 08/31/2016. TECHNIQUE: Before and following the IV administration of 118 cc of Optiray 320, CT scan of the abdomen is performed from the lung bases to the pelvic inlet utilizing the pancreas protocol. Images are reviewed in the axial, sagittal, and coronal planes. IV contrast was administered without complication. Automated dose control exposure was utilized. The examination is degraded by large body habitus, and by streak artifact from the body wall abutting the CT gantry. CT DOSE: 3603.30 mGy.cm FINDINGS: Lung bases: The heart is normal in size and without pericardial effusion. The lung bases are clear. Liver: The contrast-enhanced liver is enlarged, measuring 22 cm in length. The liver demonstrates diffusely diminished attenuation consistent with hepatic steatosis. There is no intrahepatic biliary ductal dilatation. A 1.3 cm lipoma is again suggested in the crystal hepatis on image #136. This is of doubtful significance. Hepatic and portal vasculature: Hepatic arterial anatomy is conventional. The splenic artery is normal in appearance. The hepatic veins, portal veins, superior mesenteric vein, and splenic vein are patent. Gallbladder: Unremarkable. Spleen: Normal in size and attenuation. Pancreas: The pancreas is normal in appearance and enhances homogeneously. There is no peripancreatic inflammatory stranding or fluid. There is no peripancreatic fluid collection. No enhancing hepatic masses suggested. Adrenal glands: Unremarkable. Kidneys: No renal calculi are identified on the unenhanced series. The contrast enhanced kidneys are normal in size and without hydronephrosis. The kidneys enhance symmetrically. Abdominal vasculature: The abdominal aorta is normal in course and caliber. Bowel: Visualized portions of the small bowel and colon are normal in course and caliber. Peritoneum: There is no intraperitoneal free air or abdominal ascites. Lymphadenopathy: None. Skeletal structures: No lytic or blastic lesions are seen. IMPRESSION: 1. Unremarkable CT scan of the pancreas. 2. Hepatomegaly and hepatic steatosis. Electronically signed by: Mathew Calero M.D. 09/24/2016 2:09 PM Dictated Date/Time: 09/24/2016 2:02 PM
[2016-09-24 15:55] VITALS: BP 133/81; PULSE 89; TEMP 37; O2SAT 99
--- NOTE | 2016-09-24 18:29 | Progress Note ---
Internal Med Progress Note Date of Service: September 24, 2016. Provider Documentation: SUBJECTIVE: felt nauseous today Lipase elevated ~2700 pt is put NPO except for ice cips and sips IV continued mid abdomen pain remains the same had a bowel movement today no fever or chills OBJECTIVE: Vital Signs-as noted below Exam: General-no sign of distress Eyes-sclera non icteric Lungs-CTA Heart-regular S1/S2 Abdomen-soft, non tender Extremities-no rash or deformity Neuro-AAO x3, no focal neurological deficit Lab data as noted below. ASSESSMENT & PLAN: 26 year old female presents to the ED complaining of RUQ abdominal pain found to have elevated lipase /acute pancreatitis ACUTE PANCREATITIS -Lipase 1177-> 1300 -> 2700 -had similar symptom few weeks back requiring admission at [facility] , Had gallbladder USG , CT abdomen/pelvis , MRI /MRCP shows hepatic steatosis , no sign of choledocholithiasis -Workup on previous admission, MRCP: fatty liver ,EGD - gastritis, Triglycerides 122 -RUQ US : 1. No acute sonographic abnormality is identified in the right upper quadrant. No gallstones are seen. 2. The pancreas is normal as visualized. 3. Hepatomegaly and severe hepatic steatosis. -pt is provided bowel rest with ice chips and sips - -GI consult appreciated CT abdomen /pelvis ordered to day for persistently elevated Lipase Unremarkable CT scan of the pancreas. -mild elevation of LFT possible due to hepatic steatosis pt had EGD done in last admission shows grade B esophagitis pt is continued on PPI due for repeat EGD 11/01/2016 cont bowel rest -IV hydration repeat Lipase level in AM acute pancreatitis could possibly due to Alcohol induced pt mentions of being a social drinker , OK to avoid alcohol in future DYSURIA/POSSIBLE UTI -UA _ leukocyte esterase , trace occult blood pt complains of dysuria /increased frequency Urine culture -pin point growth , re incubating -ordered for Cipro empirically -repeat culture ordered -report pending H/O GASTRITIS -continue PPI H/O UTERINE FIBROID -f/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 ORAL CONTRACEPTIVE USE hold in setting of acute pancreatitis /mild elevation of LFT 's can be resumed as out patient DVT PROPHYLAXIS: moderate risk sub q Lovenox CODE STATUS: FULL CODE DISPOSITION Discharge home when medically stable Medicine follow up with Dr Logan Tsai GI follow up for out patient EGD on 11/01/2016 as scheduled Vital Signs: Date Time Temp Pulse Resp B/P Pulse Ox O2 Delivery O2 Flow Rate FiO2 09/24/16 15:55 37.0 89 18 133/81 99 Room Air 09/24/16 15:45 Room Air 09/24/16 07:53 37.2 85 20 134/93 98 Room Air 09/24/16 07:25 97 Room Air 09/23/16 23:51 Room Air 09/23/16 22:50 36.9 97 16 143/94 97 Room Air Lab Results: Results Past 24 Hours Test 09/24/16 06:50 Range/Units Sodium Level 141 136-145 mmol/L Potassium Level 3.6 3.5-5.1 mmol/L Chloride Level 107 98-107 mmol/L Carbon Dioxide Level 26 21-32 mmol/L Anion Gap 8.0 3-11 mmol/L Blood Urea Nitrogen 2 7-18 mg/dl Creatinine 0.70 0.60-1.20 mg/dl Est Creatinine Clear Calc Drug Dose 173.9 ml/min Estimated GFR () 136.7 Estimated GFR (Non- 117.9 BUN/Creatinine Ratio 2.6 10-20 Random Glucose 111 70-99 mg/dl Calcium Level 8.7 8.5-10.1 mg/dl Magnesium Level 1.8 1.8-2.4 mg/dl Total Bilirubin 1.2 0.2-1 mg/dl Direct Bilirubin 0.3 0-0.2 mg/dl Aspartate Amino Transf (AST/SGOT) 58 15-37 U/L Alanine Aminotransferase (ALT/SGPT) 42 12-78 U/L Alkaline Phosphatase 63 45-117 U/L Total Protein 6.5 6.4-8.2 gm/dl Albumin 3.1 3.4-5.0 gm/dl Lipase 2745 73-393 U/L Microbiology Results 09/23/16 Urine Culture, Received Pending
[2016-09-24 23:10] VITALS: BP 116/81; PULSE 103; TEMP 37; O2SAT 98
[2016-09-25] MEDS: D5W AND LACTATED RINGERS 1,000 ML IV SCH ×5 (04:06→23:51)
[2016-09-25 07:03] VITALS: BP 135/95; PULSE 88; TEMP 37; O2SAT 98
[2016-09-25 07:48] LABS: ALT/SGPT 43 U/L (12-78); AST/SGOT 41 U/L (15-37); BLOOD UREA NITROGEN < 1 mg/dl (7-18); CALCIUM 8.8 mg/dl (8.5-10.1); CARBON DIOXIDE 27 mmol/L (21-32); CHLORIDE 107 mmol/L (98-107); CREATININE 0.69 mg/dl (0.60-1.20); GLUCOSE 105 mg/dl (70-99); MAGNESIUM 1.7 mg/dl (1.8-2.4); POTASSIUM 3.2 mmol/L (3.5-5.1); SODIUM 141 mmol/L (136-145)
[2016-09-25 07:51] LABS: ALKALINE PHOSPHATASE 61 U/L (45-117)
[2016-09-25] MEDS: PANTOprazole SOD 40 MG TAB PO SCH (08:06)
[2016-09-25] MEDS: NORETHINDRONE ACETATE 5 MG TAB PO SCH (08:06)
[2016-09-25] MEDS: CIPROFLOXACIN / D5W 400 MG in PREMIXED IN D5W 200 ML IV SCH ×2 (08:06→21:29)
--- NOTE | 2016-09-25 09:03 | Gastroenterology Progress Note ---
Progress Note Date of Service: September 25, 2016 Subjective Pt evaluation today including: conversation w/ patient, physical exam Patient notes having persistent abdominal discomfort. The pain radiates towards her back and her mid abdomen. She denies having any nausea or vomiting. Of note she has started several medications in the recent past to include norethindrone and Protonix. Review of Systems Constitutional: No fatigue, No fever, No sweats ENT: No hearing loss, No sore throat, No trouble swallowing Respiratory: + cough, + sputum Cardiac: No PND, No chest pain, No palpitations Medications Current Inpatient Medications Medications (Trade) Dose Ordered Sig/Marlin Route Start Time Stop Time Status Last Admin Dose Admin Acetaminophen (Tylenol Tab) 650 mg Q4H PRN PO 09/22/16 19:30 10/22/16 19:29 09/24/16 21:08 650 MG Ondansetron HCl 4 mg 4 mg Q6H PRN IV 09/22/16 19:30 10/22/16 19:29 Promethazine HCl/ Sodium Chloride (Phenergan Inj/ Nss 50ml) 50.5 ml @ 204 mls/hr Q6H PRN IV 09/22/16 19:45 10/22/16 19:44 09/23/16 22:06 204 MLS/HR Norethindrone Acetate (Aygestin Tab) 5 mg DAILY PO 09/23/16 09:00 10/23/16 08:59 09/25/16 08:06 5 MG Pantoprazole Sodium 40 mg 40 mg BID PO 09/22/16 21:00 10/22/16 20:59 09/25/16 08:06 40 MG Dextrose/Lactated Ringer's (D5W And Lactated Ringers) 1,000 ml @ 200 mls/hr Q5H IV 09/22/16 21:30 10/22/16 21:29 09/25/16 04:06 200 MLS/HR Diphenhydramine HCl (Benadryl Cap) 25 mg Q6H PRN PO 09/23/16 03:45 10/23/16 03:44 09/23/16 10:32 25 MG Hydromorphone HCl 1 mg 1 mg Q4 PRN IV 09/23/16 19:45 10/07/16 19:44 Ciprofloxacin/ Dextrose/Prmx (Cipro / D5w/ Premixed D5W) 200 ml @ 100 mls/hr Q12 IV 09/23/16 21:00 09/28/16 20:59 09/25/16 08:06 100 MLS/HR Objective Vital Signs Date Time Temp Pulse Resp B/P Pulse Ox O2 Delivery O2 Flow Rate FiO2 09/25/16 07:03 37.0 88 16 135/95 98 Room Air 09/25/16 07:02 Room Air 09/24/16 23:40 Room Air 09/24/16 23:10 37.0 103 18 116/81 98 Room Air 09/24/16 19:45 Room Air 09/24/16 15:55 37.0 89 18 133/81 99 Room Air 09/24/16 15:45 Room Air Physical Exam General Appearance: no apparent distress Eyes: PERRL Neck: no JVD Respiratory/Chest: lungs clear Cardiovascular: regular rate, rhythm Abdomen: soft, + tenderness Neurologic/Psych: oriented x 3 Laboratory Results Last 24 Hours Test 09/25/16 06:24 Sodium Level 141 mmol/L Potassium Level 3.2 mmol/L Chloride Level 107 mmol/L Carbon Dioxide Level 27 mmol/L Anion Gap 7.0 mmol/L Blood Urea Nitrogen < 1 mg/dl Creatinine 0.69 mg/dl Est Creatinine Clear Calc Drug Dose 176.4 ml/min Estimated GFR () 137.3 Estimated GFR (Non- 118.5 BUN/Creatinine Ratio Random Glucose 105 mg/dl Calcium Level 8.8 mg/dl Magnesium Level 1.7 mg/dl Total Bilirubin 1.1 mg/dl Direct Bilirubin 0.3 mg/dl Aspartate Amino Transf (AST/SGOT) 41 U/L Alanine Aminotransferase (ALT/SGPT) 43 U/L Alkaline Phosphatase 61 U/L Total Protein 6.8 gm/dl Albumin 3.2 gm/dl Amylase Level 166 U/L Lipase 3062 U/L Assessment and Plan Patient presenting with abdominal pain elevation of her serum lipase. Her imaging studies thus far included MRI and CT scan showing no evidence of pancreatic abnormalities. I wonder if the lipase elevation could be related to medication and would suggest discontinuing the Protonix and norethindrone. Recommendations Discontinue Protonix Discontinue norethindrone Consider increasing your LR to 150 or 200 mL per hour today Patient may have sips and ice chips Labs sent for ARA and serum immunoglobulins
[2016-09-25] MEDS ORDERED: MAGNESIUM SULFATE 1GM / D5W 1 GM in PREMIXED IN D5W 100 ML IV SCH (09:30)
[2016-09-25] MEDS: POTASSIUM CHLR 10 MEQ / WTR 10 MEQ in PREMIXED WATER 100 ML IV SCH ×3 (10:19→12:25)
[2016-09-25] MEDS: HYDROmorphone INJ 1 MG/ML SYR IV PRN ×2 (10:52→17:51)
[2016-09-25 14:21] LABS: BENZODIAZEPINE, URINE NEG (NEG); COCAINE,URINE NEG (NEG); PHENCYCLIDINE, URINE NEG (NEG)
[2016-09-25 15:09] VITALS: BP 114/80; PULSE 81; TEMP 37.1; O2SAT 95
--- NOTE | 2016-09-25 16:54 | Progress Note ---
Internal Med Progress Note Date of Service: September 25, 2016. Provider Documentation: SUBJECTIVE: having persistent abdominal discomfort. pain radiates towards her back and her mid abdomen. denies nausea or vomiting no fever or chills OBJECTIVE: Vital Signs-as noted below Exam: General-no sign of distress Eyes-sclera non icteric Lungs-CTA Heart-regular S1/S2 Abdomen-soft, mid abdomen + tenderness, no rebound ,no guarding , BS + ve Extremities-no rash or deformity Neuro-AAO x3, no focal neurological deficit Lab data as noted below. ASSESSMENT & PLAN: 26 year old female presents to the ED complaining of RUQ abdominal pain found to have elevated lipase /acute pancreatitis ACUTE PANCREATITIS -Lipase 1177-> 1300 -> 2700 -> 3600 -had similar symptom few weeks back requiring admission at [facility] , Had gallbladder USG , CT abdomen/pelvis , MRI /MRCP shows hepatic steatosis , no sign of choledocholithiasis -Workup on previous admission, MRCP: fatty liver ,EGD - gastritis, Triglycerides 122 -RUQ US : 1. No acute sonographic abnormality is identified in the right upper quadrant. No gallstones are seen. 2. The pancreas is normal as visualized. 3. Hepatomegaly and severe hepatic steatosis. -pt is provided bowel rest with ice chips and sips - -GI consult appreciated CT abdomen /pelvis ordered to day for persistently elevated Lipase Unremarkable CT scan of the pancreas. -mild elevation of LFT possible due to hepatic steatosis pt had EGD done in last admission shows grade B esophagitis pt is continued on PPI due for repeat EGD 11/01/2016 cont bowel rest -IV hydration rate increased by GI today as lipase continues to be elevated D/c Protonix , OCP as may contribute to persistent elevated lipase repeat lipase level in AM DYSURIA/POSSIBLE UTI -UA _ leukocyte esterase , trace occult blood pt complains of dysuria /increased frequency Urine culture -pin point growth , re incubating -ordered for Cipro empirically -repeat culture ordered -report pending H/O GASTRITIS -continue PPI H/O UTERINE FIBROID -f/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1 81 18 114/80 95 Room Air Lab Results: Results Past 24 Hours Test 09/25/16 13:00 09/26/16 06:39 Range/Units Urine Opiates Screen POS NEG Urine Methadone, Qualitative NEG NEG Urine Barbiturates NEG NEG Urine Phencyclidine (PCP) Level NEG NEG Ur Amphetamine/Methamphetamine NEG NEG MDMA (Ecstasy) Screen NEG NEG Urine Benzodiazepines Screen NEG NEG Urine Cocaine Metabolite NEG NEG Urine Marijuana (THC) NEG NEG Sodium Level 141 136-145 mmol/L Potassium Level 3.4 3.5-5.1 mmol/L Chloride Level 107 98-107 mmol/L Carbon Dioxide Level 26 21-32 mmol/L Anion Gap 8.0 3-11 mmol/L Blood Urea Nitrogen < 1 7-18 mg/dl Creatinine 0.67 0.60-1.20 mg/dl Est Creatinine Clear Calc Drug Dose 181.8 ml/min Estimated GFR () 138.6 Estimated GFR (Non- 119.6 BUN/Creatinine Ratio 10-20 Random Glucose 99 70-99 mg/dl Calcium Level 8.6 8.5-10.1 mg/dl Magnesium Level 1.9 1.8-2.4 mg/dl Total Bilirubin 0.7 0.2-1 mg/dl Direct Bilirubin 0.2 0-0.2 mg/dl Aspartate Amino Transf (AST/SGOT) 35 15-37 U/L Alanine Aminotransferase (ALT/SGPT) 41 12-78 U/L Alkaline Phosphatase 56 45-117 U/L Total Protein 6.6 6.4-8.2 gm/dl Albumin 3.0 3.4-5.0 gm/dl Lipase 2468 73-393 U/L
[2016-09-25 23:10] VITALS: BP 141/94; PULSE 90; TEMP 37.2; O2SAT 98
[2016-09-26] MEDS: HYDROmorphone INJ 1 MG/ML SYR IV PRN ×3 (00:14→23:14)
[2016-09-26] MEDS: D5W AND LACTATED RINGERS 1,000 ML IV SCH ×4 (05:18→20:38)
[2016-09-26 07:13] VITALS: BP 133/88; PULSE 91; TEMP 36.7; O2SAT 97
[2016-09-26 07:24] LABS: ALT/SGPT 41 U/L (12-78); AST/SGOT 35 U/L (15-37); BLOOD UREA NITROGEN < 1 mg/dl (7-18); CALCIUM 8.6 mg/dl (8.5-10.1); CARBON DIOXIDE 26 mmol/L (21-32); CHLORIDE 107 mmol/L (98-107); CREATININE 0.67 mg/dl (0.60-1.20); GLUCOSE 99 mg/dl (70-99); MAGNESIUM 1.9 mg/dl (1.8-2.4); POTASSIUM 3.4 mmol/L (3.5-5.1); SODIUM 141 mmol/L (136-145)
[2016-09-26 07:30] LABS: ALKALINE PHOSPHATASE 56 U/L (45-117)
[2016-09-26] MEDS: CIPROFLOXACIN / D5W 400 MG in PREMIXED IN D5W 200 ML IV SCH ×2 (08:49→20:38)
[2016-09-26] MEDS ORDERED: POTASSIUM CHLR 10 MEQ / WTR 10 MEQ in PREMIXED WATER 100 ML IV ONE (11:30)
[2016-09-26 15:03] VITALS: BP 115/75; PULSE 91; TEMP 37; O2SAT 98
[2016-09-26 15:45] VITALS: O2SAT 98
--- NOTE | 2016-09-26 19:29 | Progress Note ---
Internal Med Progress Note Date of Service: September 26, 2016. Provider Documentation: SUBJECTIVE: feels very hungry ,was walking on hallway had a bowel movement abdomen splitting machine tender , but feels its getting better OBJECTIVE: Vital Signs-as noted below Exam: General-no sign of distress Eyes-sclera non icteric Lungs-CTA Heart-regular S1/S2 Abdomen-soft, mid abdomen + tenderness, no rebound ,no guarding , BS + ve Extremities-no rash or deformity Neuro-AAO x3, no focal neurological deficit Lab data as noted below. ASSESSMENT & PLAN: 26 year old female presents to the ED complaining of RUQ abdominal pain found to have elevated lipase /acute pancreatitis ACUTE PANCREATITIS -Lipase 1177-> 1300 -> 2700 -> 3600 improved 2568 repeat labs in AM -had similar symptom few weeks back requiring admission at [facility] , Had gallbladder USG , CT abdomen/pelvis , MRI /MRCP shows hepatic steatosis , no sign of choledocholithiasis -Workup on previous admission, MRCP: fatty liver ,EGD - gastritis, Triglycerides 122 -RUQ US : 1. No acute sonographic abnormality is identified in the right upper quadrant. No gallstones are seen. 2. The pancreas is normal as visualized. 3. Hepatomegaly and severe hepatic steatosis. -pt is provided bowel rest with ice chips and sips - -GI consult appreciated CT abdomen /pelvis ordered to day for persistently elevated Lipase Unremarkable CT scan of the pancreas. -mild elevation of LFT possible due to hepatic steatosis pt had EGD done in last admission shows grade B esophagitis pt is continued on PPI due for repeat EGD 11/01/2016 cont bowel rest -IV hydration rate increased by GI today as lipase continues to be elevated D/c Protonix , OCP as may contribute to persistent elevated lipase repeat lipase level in AM will start on clears if Lipase level continues to improve DYSURIA/POSSIBLE UTI -UA _ leukocyte esterase , trace occult blood pt complains of dysuria /increased frequency Urine culture -pin point growth , re incubating -ordered for Cipro empirically -repeat culture ordered -> 3 organisms H/O GASTRITIS -continue PPI H/O UTERINE FIBROID -f/u with [employer] as scheduled ORAL CONTRACEPTIVE USE hold in setting of acute pancreatitis /mild elevation of LFT 's DVT PROPHYLAXIS: moderate risk sub q Lovenox CODE STATUS: FULL CODE DISPOSITION Discharge home when medically stable Medicine follow up with Dr Logan Tsai GI follow up for out patient EGD on 11/01/2016 as scheduled Vital Signs: Date Time Temp Pulse Resp B/P Pulse Ox O2 Delivery O2 Flow Rate FiO2 09/26/16 15:45 98 Room Air 09/26/16 15:03 37.0 91 18 115/75 98 Room Air 09/26/16 08:17 Room Air 09/26/16 07:13 36.7 91 17 133/88 97 Room Air 09/26/16 00:00 Room Air 09/25/16 23:10 37.2 90 18 141/94 98 Room Air Lab Results: Results Past 24 Hours Test 09/26/16 06:39 Range/Units Sodium Level 141 136-145 mmol/L Potassium Level 3.4 3.5-5.1 mmol/L Chloride Level 107 98-107 mmol/L Carbon Dioxide Level 26 21-32 mmol/L Anion Gap 8.0 3-11 mmol/L Blood Urea Nitrogen < 1 7-18 mg/dl Creatinine 0.67 0.60-1.20 mg/dl Est Creatinine Clear Calc Drug Dose 181.8 ml/min Estimated GFR () 138.6 Estimated GFR (Non- 119.6 BUN/Creatinine Ratio 10-20 Random Glucose 99 70-99 mg/dl Calcium Level 8.6 8.5-10.1 mg/dl Magnesium Level 1.9 1.8-2.4 mg/dl Total Bilirubin 0.7 0.2-1 mg/dl Direct Bilirubin 0.2 0-0.2 mg/dl Aspartate Amino Transf (AST/SGOT) 35 15-37 U/L Alanine Aminotransferase (ALT/SGPT) 41 12-78 U/L Alkaline Phosphatase 56 45-117 U/L Total Protein 6.6 6.4-8.2 gm/dl Albumin 3.0 3.4-5.0 gm/dl Lipase 2468 73-393 U/L
[2016-09-26 23:10] VITALS: BP 135/87; PULSE 94; TEMP 36.7; O2SAT 98
[2016-09-27] MEDS: D5W AND LACTATED RINGERS 1,000 ML IV SCH ×5 (03:04→22:16)
[2016-09-27 07:22] VITALS: BP 139/91; PULSE 98; TEMP 37; O2SAT 99
[2016-09-27 07:48] LABS: BLOOD UREA NITROGEN < 1 mg/dl (7-18); CALCIUM 8.5 mg/dl (8.5-10.1); CARBON DIOXIDE 26 mmol/L (21-32); CHLORIDE 108 mmol/L (98-107); CREATININE 0.63 mg/dl (0.60-1.20); GLUCOSE 118 mg/dl (70-99); MAGNESIUM 1.8 mg/dl (1.8-2.4); POTASSIUM 3.3 mmol/L (3.5-5.1); SODIUM 141 mmol/L (136-145)
[2016-09-27] MEDS: CIPROFLOXACIN / D5W 400 MG in PREMIXED IN D5W 200 ML IV SCH (08:36)
--- NOTE | 2016-09-27 09:51 | Gastroenterology Progress Note ---
Progress Note Date of Service: September 27, 2016 Subjective Pt evaluation today including: conversation w/ patient, physical exam, chart review, lab review, review of studies, review of inpatient medication list Ms. Xie is a 26 yr old female who was admitted on 09/22/16 with a second episode of pancreatitis. This admission ALT 98 on arrival, now 35. T Bili was 1.5 on 09/23 now 0.7; d bili max was 0.3, now 0.2; other LFTs have been normal. CT with IV contrast and US on arrival normal. On previous admission with pancreatitis in August, MRCP was normal. Fm hx of gallbladder dx and pancreatitis. Admits to only a few weeks every other week or so. Today pt ambulating, poor appetite, remains on clear liquids, remains with mild epigastric pain and moderate tenderness, does have mild tachycardia with ambulation, but no fevers or diaphoresis, no nausea/vomiting. Hemodiluted from 13.2 to 11.7. ARA and IGG subclasses are pending. Review of Systems Constitutional: No fever ENT: No hearing loss Respiratory: No cough Cardiac: No chest pain Abdomen: + pain, No constipation, No diarrhea, No nausea, No vomiting Female : No dysuria Neuro: No memory loss Psych: No depression symptoms Heme: No abnormal bleeding/bruising Endo: No fatigue Skin: No rash Medications Current Inpatient Medications Medications (Trade) Dose Ordered Sig/Marlin Route Start Time Stop Time Status Last Admin Dose Admin Acetaminophen (Tylenol Tab) 650 mg Q4H PRN PO 09/22/16 19:30 10/22/16 19:29 09/24/16 21:08 650 MG Ondansetron HCl 4 mg 4 mg Q6H PRN IV 09/22/16 19:30 10/22/16 19:29 Promethazine HCl 12.5 mg/Sodium Chloride 50.5 ml @ 204 mls/hr Q6H PRN IV 09/22/16 19:45 10/22/16 19:44 09/23/16 22:06 204 MLS/HR Dextrose/Lactated Ringer's (D5W And Lactated Ringers) 1,000 ml @ 200 mls/hr Q5H IV 09/22/16 21:30 10/22/16 21:29 09/27/16 06:22 200 MLS/HR Diphenhydramine HCl (Benadryl Cap) 25 mg Q6H PRN PO 09/23/16 03:45 10/23/16 03:44 09/23/16 10:32 25 MG Hydromorphone HCl 1 mg 1 mg Q4 PRN IV 09/23/16 19:45 10/07/16 19:44 09/26/16 23:14 1 MG Ciprofloxacin/ Dextrose/Prmx (Cipro / D5w/ Premixed D5W) 200 ml @ 100 mls/hr Q12 IV 09/23/16 21:00 09/28/16 20:59 09/27/16 08:36 100 MLS/HR Objective Vital Signs Date Time Temp Pulse Resp B/P Pulse Ox O2 Delivery O2 Flow Rate FiO2 09/27/16 07:22 37.0 98 16 139/91 99 Room Air 09/26/16 23:15 Room Air 09/26/16 23:10 36.7 94 16 135/87 98 Room Air 09/26/16 15:45 98 Room Air 09/26/16 15:03 37.0 91 18 115/75 98 Room Air Physical Exam General Appearance: no apparent distress Neck: thyroid normal, no JVD Respiratory/Chest: lungs clear, normal breath sounds Cardiovascular: regular rate, rhythm, no JVD, no murmur Abdomen: soft, + tenderness (epigastric tenderness) Extremities: non-tender Neurologic/Psych: alert, normal mood/affect, oriented x 3 Skin: no jaundice Laboratory Results Last 24 Hours Test 09/27/16 06:47 Sodium Level 141 mmol/L Potassium Level 3.3 mmol/L Chloride Level 108 mmol/L Carbon Dioxide Level 26 mmol/L Anion Gap 7.0 mmol/L Blood Urea Nitrogen < 1 mg/dl Creatinine 0.63 mg/dl Est Creatinine Clear Calc Drug Dose 193.3 ml/min Estimated GFR () 141.5 Estimated GFR (Non- 122.1 BUN/Creatinine Ratio Random Glucose 118 mg/dl Calcium Level 8.5 mg/dl Magnesium Level 1.8 mg/dl Lipase 1922 U/L Assessment and Plan Ms. Xie is an 26 yr old female with recurrent acute pancreatitis w/o obvious cause. No evidence of gallstones on imaging, no hx of increased alcohol intake. Plan: 1. Will advance to full liquids po today. 2. Will plan for OP EUS in 4 weeks (per Dr. Young). I saw and evaluated the patient. She notes tolerating the liquid diet well today. Would recommend advancing her diet as tolerated. We should plan to do an outpatient upper endoscopy and endoscopic ultrasound in about 4-6 weeks. This can be done with her regular GI provider Dr. Lai.
[2016-09-27 15:00] VITALS: BP 121/81; PULSE 91; TEMP 37.5; O2SAT 98
--- NOTE | 2016-09-27 20:01 | Progress Note ---
Internal Med Progress Note Date of Service: September 27, 2016. Provider Documentation: SUBJECTIVE: feels better today , on clears , does not have much appetite cautious about not eating too much as it may cause further abdominal pain no nausea , no fever or chills pt mentions of having bowel movement yesterday has been ambulating in hallway OBJECTIVE: Vital Signs-as noted below Exam: General-no sign of distress Eyes-sclera non icteric Lungs-CTA Heart-regular S1/S2 Abdomen-soft, mid abdomen + tenderness -improved , no rebound ,no guarding , BS + ve Extremities-no rash or deformity Neuro-AAO x3, no focal neurological deficit Lab data as noted below. ASSESSMENT & PLAN: 26 year old female presents to the ED complaining of RUQ abdominal pain found to have elevated lipase /acute pancreatitis ACUTE PANCREATITIS -Lipase 1177-> 1300 -> 2700 -> 3600 improved 2568 -> 1100 repeat labs in AM -had similar symptom few weeks back requiring admission at [facility] , Had gallbladder USG , CT abdomen/pelvis , MRI /MRCP shows hepatic steatosis , no sign of choledocholithiasis -Workup on previous admission, MRCP: fatty liver ,EGD - gastritis, Triglycerides 122 -RUQ US : 1. No acute sonographic abnormality is identified in the right upper quadrant. No gallstones are seen. 2. The pancreas is normal as visualized. 3. Hepatomegaly and severe hepatic steatosis. -pt is provided bowel rest with ice chips and sips - -GI consult appreciated CT abdomen /pelvis : Unremarkable CT scan of the pancreas. -mild elevation of LFT possible due to hepatic steatosis pt had EGD done in last admission shows grade B esophagitis pt is continued on PPI due for repeat EGD 11/01/2016 Lipase level has started to improve clinically less pain in abdomen diet advanced to Full liquid cont follow lipase level -d/c home as lipase level normalizes , as clinically improves to tolerate low fat diet with out GI symptom out pt follow up with GI for EUS in 4 weeks DYSURIA/POSSIBLE UTI -UA _ leukocyte esterase , trace occult blood pt complains of dysuria /increased frequency Urine culture -pin point growth , re incubating -ordered for Cipro empirically completed 5 days course -repeat culture ordered -> 3 organisms H/O GASTRITIS -continue PPI H/O UTERINE FIBROID -f/u with RECHARGER as scheduled ORAL CONTRACEPTIVE USE hold in setting of acute pancreatitis /mild elevation of LFT 's DVT PROPHYLAXIS: moderate risk sub q Lovenox CODE STATUS: FULL CODE DISPOSITION Discharge home when medically stable Medicine follow up with Dr Logan Tsai GI follow up for out patient EGD on 11/01/2016 as scheduled Vital Signs: Date Time Temp Pulse Resp B/P Pulse Ox O2 Delivery O2 Flow Rate FiO2 09/27/16 16:15 Room Air 09/27/16 15:00 37.5 91 18 121/81 98 Room Air 09/27/16 07:45 Room Air 09/27/16 07:22 37.0 98 16 139/91 99 Room Air 09/26/16 23:15 Room Air 09/26/16 23:10 36.7 94 16 135/87 98 Room Air Lab Results: Results Past 24 Hours Test 09/27/16 06:47 Range/Units Sodium Level 141 136-145 mmol/L Potassium Level 3.3 3.5-5.1 mmol/L Chloride Level 108 98-107 mmol/L Carbon Dioxide Level 26 21-32 mmol/L Anion Gap 7.0 3-11 mmol/L Blood Urea Nitrogen < 1 7-18 mg/dl Creatinine 0.63 0.60-1.20 mg/dl Est Creatinine Clear Calc Drug Dose 193.3 ml/min Estimated GFR () 141.5 Estimated GFR (Non- 122.1 BUN/Creatinine Ratio 10-20 Random Glucose 118 70-99 mg/dl Calcium Level 8.5 8.5-10.1 mg/dl Magnesium Level 1.8 1.8-2.4 mg/dl Lipase 1922 73-393 U/L
[2016-09-27 23:30] VITALS: BP 144/95; PULSE 102; TEMP 36.9; O2SAT 98
[2016-09-28] MEDS: D5W AND LACTATED RINGERS 1,000 ML IV SCH ×5 (03:06→21:48)
[2016-09-28] MEDS: HYDROmorphone INJ 1 MG/ML SYR IV PRN ×2 (04:35→23:33)
[2016-09-28 07:01] VITALS: BP 116/82; PULSE 82; TEMP 36.8; O2SAT 96
[2016-09-28 08:23] LABS: BUN/CREATININE RATIO 1.5 (10-20); CREATININE 0.73 mg/dl (0.60-1.20); POTASSIUM 3.4 mmol/L (3.5-5.1)
[2016-09-28 08:52] LABS: CALCIUM 8.8 mg/dl (8.5-10.1)
--- NOTE | 2016-09-28 10:15 | Gastroenterology Progress Note ---
Progress Note Date of Service: September 28, 2016 Subjective Pt evaluation today including: conversation w/ patient, physical exam, chart review, lab review, review of studies, review of inpatient medication list Ms. Xie is a 26 yr old female admitted with a second episode of pancreatitis, unclear etiology. Continues to slowly improve. Lipase [id number]. Peak was 3062 on 09/25. She also carries a hx of esophagitis on recent EGD as well. Today: some intermittent epigastric pain. Tolerating full liquids well, w/o increase pain and w/o nausea, but "not hungry." Passed BMs two days ago, no abdominal distention. Review of Systems Constitutional: No fever ENT: No hearing loss, No nasal symptoms, No sore throat, No unusual epistaxis Respiratory: No cough Cardiac: No chest pain Abdomen: + pain, + see HPI, No GI bleeding, No acolic stools, No constipation, No diarrhea, No dysphagia, No jaundice, No nausea, No odynophagia, No vomiting Female : No dysuria Neuro: No memory loss Psych: No depression symptoms Heme: No abnormal bleeding/bruising Endo: No fatigue Skin: No rash Medications Current Inpatient Medications Medications (Trade) Dose Ordered Sig/Marlin Route Start Time Stop Time Status Last Admin Dose Admin Acetaminophen (Tylenol Tab) 650 mg Q4H PRN PO 09/22/16 19:30 10/22/16 19:29 09/24/16 21:08 650 MG Ondansetron HCl 4 mg 4 mg Q6H PRN IV 09/22/16 19:30 10/22/16 19:29 Promethazine HCl 12.5 mg/Sodium Chloride 50.5 ml @ 204 mls/hr Q6H PRN IV 09/22/16 19:45 10/22/16 19:44 09/23/16 22:06 204 MLS/HR Dextrose/Lactated Ringer's (D5W And Lactated Ringers) 1,000 ml @ 200 mls/hr Q5H IV 09/22/16 21:30 10/22/16 21:29 09/28/16 07:26 200 MLS/HR Diphenhydramine HCl (Benadryl Cap) 25 mg Q6H PRN PO 09/23/16 03:45 10/23/16 03:44 09/23/16 10:32 25 MG Hydromorphone HCl (Dilaudid Inj) 1 mg Q4 PRN IV 09/23/16 19:45 10/07/16 19:44 09/28/16 04:35 1 MG Objective Vital Signs Date Time Temp Pulse Resp B/P Pulse Ox O2 Delivery O2 Flow Rate FiO2 09/28/16 07:25 Room Air 09/28/16 07:01 36.8 82 17 116/82 96 Room Air 09/27/16 23:40 Room Air 09/27/16 23:30 36.9 102 18 144/95 98 Room Air 09/27/16 16:15 Room Air 09/27/16 15:00 37.5 91 18 121/81 98 Room Air Physical Exam General Appearance: no apparent distress ENT: pharynx normal Neck: no JVD Respiratory/Chest: lungs clear Cardiovascular: regular rate, rhythm, no JVD, no murmur Abdomen: soft, + tenderness (moderate epigastric tenderness) Neurologic/Psych: alert, normal mood/affect, oriented x 3 Skin: no jaundice Laboratory Results Last 24 Hours Test 09/28/16 07:45 Sodium Level 142 mmol/L Potassium Level 3.4 mmol/L Chloride Level 107 mmol/L Carbon Dioxide Level 25 mmol/L Anion Gap 10.0 mmol/L Blood Urea Nitrogen 1 mg/dl Creatinine 0.73 mg/dl Est Creatinine Clear Calc Drug Dose 166.8 ml/min Estimated GFR () 129.9 Estimated GFR (Non- 112.1 BUN/Creatinine Ratio 1.5 Random Glucose 99 mg/dl Calcium Level 8.8 mg/dl Lipase 1953 U/L Assessment and Plan Ms. Xie is an 26 yr old female with recurrent acute pancreatitis w/o obvious cause. No evidence of gallstones on imaging, no hx of increased alcohol intake. Plan: 1. Continue IV fluids. 2. Encourage ambulation. 3. Will add Zantac, Carafate for tx of esophagitis as may be contributing to lack of appetite/low po intake. 4. Will plan for OP EUS in 4 weeks (per Dr. Young). I saw and evaluated the patient. She seems to be tolerating a full liquid diet well today. Plan Add Zantac + carafate given history of reflux esophagitis
[2016-09-28] MEDS ORDERED: POTASSIUM CHLORIDE 20 MEQ TABCR PO ONE (10:45)
[2016-09-28] MEDS: SUCRALFATE 1 GM/10 ML UDC PO SCH ×3 (12:49→21:47)
[2016-09-28 15:00] VITALS: BP 135/97; PULSE 108; TEMP 36.9; O2SAT 98
--- NOTE | 2016-09-28 15:02 | Progress Note ---
Medicine Progress Note Date & Time of Visit: September 28, 2016 at 14:39. Subjective Pt was seen was and examined Sitting in bed with no distress Pt said that her abdominal pain feels much better She said that she tolerated full liquid diet She had normal BM denies any chest pain, palpitation, dizziness and sob Objective Last 8 Hrs Date Time Temp Pulse Resp B/P Pulse Ox O2 Delivery O2 Flow Rate FiO2 09/28/16 07:25 Room Air 09/28/16 07:01 36.8 82 17 116/82 96 Room Air Physical Exam: General- very pleasant, sitting in bed with no distress Head- atraumatic Eyes- PERRL, EOMI ENT- oropharynx clear Neck- supple, no JVD Lungs- clear to auscultation and percussion Heart- regular rhythm; no murmur Abdomen- normal bowel sounds, soft, mild tenderness in right side, obese Extremities- no pretibial edema, no calf tenderness Neuro- alert, oriented x 3; PERRL, EOMI; no facial palsy Skin- warm & dry Laboratory Results: Last 24 Hours Test 09/28/16 07:45 Sodium Level 142 mmol/L Potassium Level 3.4 mmol/L Chloride Level 107 mmol/L Carbon Dioxide Level 25 mmol/L Anion Gap 10.0 mmol/L Blood Urea Nitrogen 1 mg/dl Creatinine 0.73 mg/dl Est Creatinine Clear Calc Drug Dose 166.8 ml/min Estimated GFR () 129.9 Estimated GFR (Non- 112.1 BUN/Creatinine Ratio 1.5 Random Glucose 99 mg/dl Calcium Level 8.8 mg/dl Lipase 1952 U/L Assessment & Plan ACUTE PANCREATITIS Elevated lipase Lipase this morning 1952 CT abdomen showed unremarkable CT scan of the pancreas. U/S abdomen No acute sonographic abnormality is identified in the right upper quadrant. No gallstones are seen Tolerated full liquid diet Continue IVF GI consult consulted Clinically improved check lipase in am if symptoms continue to improve and lipase trending down, will consider to discharge Outpatient follow up with GI for EUS in 4 weeks DYSURIA/POSSIBLE UTI -UA showed leukocyte esterase , trace occult blood -pt complains of dysuria /increased frequency -Urine culture grew more than 3 organisms -ordered for Cipro empirically completed 5 days course - Stable HYPOKALEMIA K replaced continue monitor bmp H/O GASTRITIS EGD done in last admission shows grade B esophagitis and gastritis GI started her on Carafate and Zantac Repeat EGD schedule for 11/01/2016 ELEVATED AST Resolved H/O UTERINE FIBROID -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 ORAL CONTRACEPTIVE USE hold in setting of acute pancreatitis /mild elevation of LFT 's DVT PROPHYLAXIS: moderate risk sub q Lovenox CODE STATUS: FULL CODE Consultants: Gastro Current Inpatient Medications: Current Inpatient Medications Medications (Trade) Dose Ordered Sig/Marlin Route Start Time Stop Time Status Last Admin Dose Admin Acetaminophen (Tylenol Tab) 650 mg Q4H PRN PO 09/22/16 19:30 10/22/16 19:29 09/24/16 21:08 650 MG Ondansetron HCl 4 mg 4 mg Q6H PRN IV 09/22/16 19:30 10/22/16 19:29 Promethazine HCl 12.5 mg/Sodium Chloride 50.5 ml @ 204 mls/hr Q6H PRN IV 09/22/16 19:45 10/22/16 19:44 09/23/16 22:06 204 MLS/HR Dextrose/Lactated Ringer's (D5W And Lactated Ringers) 1,000 ml @ 200 mls/hr Q5H IV 09/22/16 21:30 10/22/16 21:29 09/28/16 12:48 200 MLS/HR Diphenhydramine HCl (Benadryl Cap) 25 mg Q6H PRN PO 09/23/16 03:45 10/23/16 03:44 09/23/16 10:32 25 MG Hydromorphone HCl (Dilaudid Inj) 1 mg Q4 PRN IV 09/23/16 19:45 10/07/16 19:44 09/28/16 04:35 1 MG Ranitidine HCl (zANTac TAB) 150 mg BID PO 09/28/16 21:00 10/28/16 20:59 Sucralfate (Carafate Susp) 1 gm QID PO 09/28/16 13:00 10/28/16 12:59 09/28/16 12:49 1 GM
[2016-09-28 18:25] LABS: MAGNESIUM 1.8 mg/dl (1.8-2.4)
[2016-09-28] MEDS: RANITIDINE HCL 150 MG TAB PO SCH (21:47)
[2016-09-28 22:45] VITALS: BP 135/88; PULSE 94; TEMP 37; O2SAT 99
[2016-09-29] MEDS: D5W AND LACTATED RINGERS 1,000 ML IV SCH ×3 (02:43→12:16)
[2016-09-29 07:24] VITALS: BP 137/91; PULSE 79; TEMP 36.7; O2SAT 98
[2016-09-29 08:29] LABS: BUN/CREATININE RATIO 2.2 (10-20); CREATININE 0.67 mg/dl (0.60-1.20); POTASSIUM 3.3 mmol/L (3.5-5.1)
[2016-09-29 08:44] LABS: CALCIUM 8.4 mg/dl (8.5-10.1)
[2016-09-29] MEDS ORDERED: POTASSIUM CHLORIDE 20 MEQ TABCR PO ONE (08:45)
[2016-09-29] MEDS: SUCRALFATE 1 GM/10 ML UDC PO SCH ×2 (08:57→12:16)
[2016-09-29] MEDS: RANITIDINE HCL 150 MG TAB PO SCH (08:57)
[2016-09-29 10:38] LABS: COD UR NEGATIVE NG/ML (CUTOFF=50); HYDROCOD UR NEGATIVE NG/ML (CUTOFF=50); HYDROMOR UR 482 NG/ML (CUTOFF=50); MORPHINE UR NEGATIVE NG/ML (CUTOFF=50); NORHYDROCODONE CONF UR NEGATIVE NG/ML (CUTOFF=50); OXYMORPH UR NEGATIVE NG/ML (CUTOFF=50)
--- NOTE | 2016-09-29 11:06 | Gastroenterology Progress Note ---
Progress Note Date of Service: September 29, 2016 Subjective Pt evaluation today including: conversation w/ patient, physical exam Pt was seen and evaluated this AM. There was an episode of nausea and vomiting last night but she started her menses and this typically occurs a few times with her cycle. No further nausea or vomiting. She is moving her bowels. Last BM yesterday, no black/bloody stools. Mild RUQ and epigastric pain - same pain since admission just less severe. Decreased appetite but is tolerating a full liquid diet. She is interested in going home tonight and heading back to work tomorrow. Review of Systems Constitutional: No chills, No fever Respiratory: No cough, No shortness of breath Cardiac: No chest pain, No edema Abdomen: + pain (RUQ and epigastric), No GI bleeding, No constipation, No diarrhea, No nausea, No vomiting Medications Current Inpatient Medications Medications (Trade) Dose Ordered Sig/Marlin Route Start Time Stop Time Status Last Admin Dose Admin Acetaminophen (Tylenol Tab) 650 mg Q4H PRN PO 09/22/16 19:30 10/22/16 19:29 09/24/16 21:08 650 MG Ondansetron HCl 4 mg 4 mg Q6H PRN IV 09/22/16 19:30 10/22/16 19:29 Promethazine HCl 12.5 mg/Sodium Chloride 50.5 ml @ 204 mls/hr Q6H PRN IV 09/22/16 19:45 10/22/16 19:44 09/23/16 22:06 204 MLS/HR Dextrose/Lactated Ringer's (D5W And Lactated Ringers) 1,000 ml @ 200 mls/hr Q5H IV 09/22/16 21:30 10/22/16 21:29 09/29/16 07:17 200 MLS/HR Diphenhydramine HCl (Benadryl Cap) 25 mg Q6H PRN PO 09/23/16 03:45 10/23/16 03:44 09/23/16 10:32 25 MG Hydromorphone HCl (Dilaudid Inj) 1 mg Q4 PRN IV 09/23/16 19:45 10/07/16 19:44 09/28/16 23:33 1 MG Ranitidine HCl (zANTac TAB) 150 mg BID PO 09/28/16 21:00 10/28/16 20:59 09/29/16 08:57 150 MG Sucralfate (Carafate Susp) 1 gm QID PO 09/28/16 13:00 10/28/16 12:59 09/29/16 08:57 1 GM Objective Vital Signs Date Time Temp Pulse Resp B/P Pulse Ox O2 Delivery O2 Flow Rate FiO2 09/29/16 07:55 Room Air 09/29/16 07:24 36.7 79 20 137/91 98 Room Air 09/28/16 23:30 Room Air 09/28/16 22:45 37.0 94 18 135/88 99 Room Air 09/28/16 16:10 Room Air 09/28/16 15:00 36.9 108 16 135/97 98 Room Air Physical Exam General Appearance: no apparent distress Eyes: PERRL ENT: hearing grossly normal Neck: supple, trachea midline Respiratory/Chest: lungs clear, normal breath sounds, no respiratory distress, no accessory muscle use Cardiovascular: regular rate, rhythm, no edema, no JVD Abdomen: normal bowel sounds, soft, no organomegaly, no pulsatile mass Neurologic/Psych: alert, normal mood/affect, oriented x 3 Skin: normal color, no jaundice, warm/dry Laboratory Results Last 24 Hours Test 09/28/16 17:52 09/29/16 07:08 Magnesium Level 1.8 mg/dl Chemistry Specimen Hemolysis Sodium Level 140 mmol/L Potassium Level 3.3 mmol/L Chloride Level 107 mmol/L Carbon Dioxide Level 24 mmol/L Anion Gap 9.0 mmol/L Blood Urea Nitrogen 2 mg/dl Creatinine 0.67 mg/dl Est Creatinine Clear Calc Drug Dose 181.8 ml/min Estimated GFR () 138.6 Estimated GFR (Non- 119.6 BUN/Creatinine Ratio 2.2 Random Glucose 109 mg/dl Calcium Level 8.4 mg/dl Lipase 1228 U/L Assessment and Plan Ms. Xie is an 26 yr old female with recurrent acute pancreatitis w/o obvious cause. No evidence of gallstones on imaging, no hx of increased alcohol intake. There is family history of pancreatitis - she is unsure if they had genetic testing or EUS Advance diet as tolerated - low fat Continue IV fluids while admitted Encourage ambulation. Hold PPI Zantac, Carafate Follow up ARA IGG 09/25/16 still pending OP EUS in 4 weeks (per Dr. Lai) I saw and evaluated the patient. She notes feeling well enough to go home this afternoon. Recomendation eus in 4 to 6 week (Joelle or lul)
--- NOTE | 2016-09-29 11:14 | Progress Note ---
Medicine Progress Note Date & Time of Visit: September 29, 2016 at 11:00. Subjective Pt was seen and examined lying in bed with no distress Pt said that her abdominal pain is improved today she said that she tolerated full liquid diet Pt said that she does not have the abdominal pain that was across her abdomen she said that her pain is in the right side she said that the pain is similar to when she is getting her menstrual cycle she said that she is closed to get her cycle denies any chest pain, palpitation and sob. Objective Last 8 Hrs Date Time Temp Pulse Resp B/P Pulse Ox O2 Delivery O2 Flow Rate FiO2 09/29/16 07:55 Room Air 09/29/16 07:24 36.7 79 20 137/91 98 Room Air Physical Exam: General- very pleasant, sitting in bed with no distress Head- atraumatic Eyes- PERRL, EOMI ENT- oropharynx clear Neck- supple, no JVD Lungs- clear to auscultation and percussion Heart- regular rhythm; no murmur Abdomen- normal bowel sounds, soft, mild tenderness in right side, obese Extremities- no pretibial edema, no calf tenderness Neuro- alert, oriented x 3; PERRL, EOMI; no facial palsy Skin- warm & dry Laboratory Results: Last 24 Hours Test 09/28/16 17:52 09/29/16 07:08 Magnesium Level 1.8 mg/dl Chemistry Specimen Hemolysis Sodium Level 140 mmol/L Potassium Level 3.3 mmol/L Chloride Level 107 mmol/L Carbon Dioxide Level 24 mmol/L Anion Gap 9.0 mmol/L Blood Urea Nitrogen 2 mg/dl Creatinine 0.67 mg/dl Est Creatinine Clear Calc Drug Dose 181.8 ml/min Estimated GFR () 138.6 Estimated GFR (Non- 119.6 BUN/Creatinine Ratio 2.2 Random Glucose 109 mg/dl Calcium Level 8.4 mg/dl Lipase 1228 U/L Assessment & Plan ACUTE PANCREATITIS Elevated lipase Lipase this morning trending down to 1228 CT abdomen showed unremarkable CT scan of the pancreas. U/S abdomen No acute sonographic abnormality is identified in the right upper quadrant. No gallstones are seen Tolerated full liquid diet advance to low fat diet decrease IVF GI consult consulted Clinically improved significantly consider to discharge today if tolerated diet if symptoms continue to improve and lipase trending down, will consider to discharge Outpatient follow up with GI for EUS in 4 weeks DYSURIA/POSSIBLE UTI -UA showed leukocyte esterase , trace occult blood -pt complains of dysuria /increased frequency -Urine culture grew more than 3 organisms -ordered for Cipro empirically completed 5 days course - Stable HYPOKALEMIA K replaced continue monitor bmp H/O GASTRITIS EGD done in last admission shows grade B esophagitis and gastritis GI started her on Carafate and Zantac Repeat EGD schedule for 11/01/2016 ELEVATED AST Resolved H/O UTERINE FIBROID -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 Tsai on 09/30 at 2:50 pm Outpatient follow up with GI for EUS in 4 to 6 weeks Pt is taking a leave of absence from work. She is going back to work on 11/02/16 Consultants: Gastro Current Inpatient Medications: Current Inpatient Medications Medications (Trade) Dose Ordered Sig/Marlin Route Start Time Stop Time Status Last Admin Dose Admin Acetaminophen (Tylenol Tab) 650 mg Q4H PRN PO 09/22/16 19:30 10/22/16 19:29 09/24/16 21:08 650 MG Ondansetron HCl 4 mg 4 mg Q6H PRN IV 09/22/16 19:30 10/22/16 19:29 Promethazine HCl 12.5 mg/Sodium Chloride 50.5 ml @ 204 mls/hr Q6H PRN IV 09/22/16 19:45 10/22/16 19:44 09/23/16 22:06 204 MLS/HR Dextrose/Lactated Ringer's (D5W And Lactated Ringers) 1,000 ml @ 200 mls/hr Q5H IV 09/22/16 21:30 10/22/16 21:29 09/29/16 07:17 200 MLS/HR Diphenhydramine HCl (Benadryl Cap) 25 mg Q6H PRN PO 09/23/16 03:45 10/23/16 03:44 09/23/16 10:32 25 MG Hydromorphone HCl (Dilaudid Inj) 1 mg Q4 PRN IV 09/23/16 19:45 10/07/16 19:44 09/28/16 23:33 1 MG Ranitidine HCl (zANTac TAB) 150 mg BID PO 09/28/16 21:00 10/28/16 20:59 09/29/16 08:57 150 MG Sucralfate (Carafate Susp) 1 gm QID PO 09/28/16 13:00 10/28/16 12:59 09/29/16 08:57 1 GM
[2016-09-29 14:51] VITALS: BP 134/96; PULSE 90; TEMP 36.5; O2SAT 98
[2016-09-29 16:31] LABS: IGG SERUM 1099 mg/dL (694-1618)
[2016-09-29] MEDS ORDERED: ZNT150 PO (17:58)
[2016-09-29] MEDS ORDERED: CRFUDL PO (17:58)
--- NOTE | 2016-09-29 18:09 | Discharge Instructions ---
Discharge Instructions Date of Service September 29, 2016. Admission Reason for Admission: Acute Pancreatitis Discharge Discharge Diagnosis / Problem: Acute pancreatitis, Hypokalemia, H/o Gastritis, Elevated AST Discharge Goals Goal(s): Decrease discomfort, Improve function, Improve disease control Activity Recommendations Activity Limitations: resume your previous activity (advanced activity as tolerated ) . Instructions / Follow-Up Instructions / Follow-Up Follow up appointment with your PCP Dr. Tsai on 09/30@2:50pm Follow up with Gastro with Dr. Lai or Dr. Young in 4 to 6 weeks for the endoscopy ultrasound Increase potassium intake in diet Monitor BMP No alcohol consumption Low fat diet for now and advanced as tolerated Current Hospital Diet Patient's current hospital diet: Low Fiber Diet Discharge Diet Recommended Diet: Low Fat Diet Pending Studies Studies pending at discharge: no Laboratory Results Lipid Panel Test 08/31/16 07:02 Range/Units Triglycerides Level 122 0-150 mg/dl Cholesterol Level 191 0-200 mg/dl HDL Cholesterol 77 mg/dl Cholesterol/HDL Ratio 2.5 LDL Cholesterol, Calculated 90 mg/dl Medical Emergencies . Who to Call and When: Medical Emergencies: If at any time you feel your situation is an emergency, please call 911 immediately. . Non-Emergent Contact Non-Emergency issues call your: Primary Care Provider Call Non-Emergent contact if: you have a fever, your pain is worsening, your pain is concerning you, you have any medication questions . . "Provider Documentation" section prepared by Kirstin Cardona. . VTE Core Measure Inpt VTE Proph given/why not?: Enoxaparin (Lovenox)SQ
[2016-09-29 18:14] VITALS: BP 134/96; PULSE 90; TEMP 36.5; O2SAT 98
--- NOTE | 2016-09-29 18:31 | Discharge Summary ---
Discharge Summary Date of Service September 29, 2016. Discharge Summary Admission Date: September 22, 2016 at 19:31 Discharge Date: September 29, 2016 Discharge Disposition: Home Principal Diagnosis: Acute Pancreatitis Secondary Diagnoses/Problems: Hypokalemia H/o Gastritis Elevated AST ORAL CONTRACEPTIVE USE H/O UTERINE FIBROID Procedures: CT SCAN OF THE ABDOMEN COMBO PANCREAS PROTOCOL CLINICAL HISTORY: Pancreatitis. Epigastric abdominal pain. COMPARISON STUDY: Abdominal CT dated 08/31/2016. Abdominal ultrasound dated 09/22/2016. MRCP dated 08/31/2016. TECHNIQUE: Before and following the IV administration of 118 cc of Optiray 320, CT scan of the abdomen is performed from the lung bases to the pelvic inlet utilizing the pancreas protocol. Images are reviewed in the axial, sagittal, and coronal planes. IV contrast was administered without complication. Automated dose control exposure was utilized. The examination is degraded by large body habitus, and by streak artifact from the body wall abutting the CT gantry. CT DOSE: 3603.30 mGy.cm FINDINGS: Lung bases: The heart is normal in size and without pericardial effusion. The lung bases are clear. Liver: The contrast-enhanced liver is enlarged, measuring 22 cm in length. The liver demonstrates diffusely diminished attenuation consistent with hepatic steatosis. There is no intrahepatic biliary ductal dilatation. A 1.3 cm lipoma is again suggested in the crystal hepatis on image #136. This is of doubtful significance. Hepatic and portal vasculature: Hepatic arterial anatomy is conventional. The splenic artery is normal in appearance. The hepatic veins, portal veins, superior mesenteric vein, and splenic vein are patent. Gallbladder: Unremarkable. Spleen: Normal in size and attenuation. Pancreas: The pancreas is normal in appearance and enhances homogeneously. There is no peripancreatic inflammatory stranding or fluid. There is no peripancreatic fluid collection. No enhancing hepatic masses suggested. Adrenal glands: Unremarkable. Kidneys: No renal calculi are identified on the unenhanced series. The contrast enhanced kidneys are normal in size and without hydronephrosis. The kidneys enhance symmetrically. Abdominal vasculature: The abdominal aorta is normal in course and caliber. Bowel: Visualized portions of the small bowel and colon are normal in course and caliber. Peritoneum: There is no intraperitoneal free air or abdominal ascites. Lymphadenopathy: None. Skeletal structures: No lytic or blastic lesions are seen. IMPRESSION: 1. Unremarkable CT scan of the pancreas. 2. Hepatomegaly and hepatic steatosis. Electronically signed by: Mathew Calero M.D. 09/24/2016 2:09 PM Dictated Date/Time: 09/24/2016 2:02 PM Patient Name: QUIQUE BARKLEY Unit Number: [id number] Dictated: 09/22/162035 Transcribed: 09/22/162035 EV Printed Date/Time: [~ rep prt dt]/[~ rep prt tm] [~ rep ct labl] - [~ rep ct ivnm] [facility] [place] [address] Dictated: 09/22/162035 Transcribed: 09/22/162035 EV Printed Date/Time: [~ rep prt dt]/[~ rep prt tm] [~ rep ct labl] - [~ rep ct ivnm] [~ rep ct add3]] ULTRASOUND RIGHT UPPER QUADRANT ABDOMEN CLINICAL HISTORY: Nausea and vomiting. Question pancreatic cyst. COMPARISON STUDY: Abdominal CT dated 08/31/2016. TECHNIQUE: Real-time, grayscale, and color flow sonography of the right upper quadrant of the abdomen was performed. Images are reviewed in the transverse and longitudinal planes. The examination is degraded by large body habitus. FINDINGS: Liver: The liver is enlarged and demonstrates heterogeneously increased echotexture consistent with severe hepatic steatosis. Note that this degrades acoustic penetration of the liver. There is no intrahepatic biliary ductal dilatation. The main portal vein is patent. Gallbladder: The gallbladder is normal in appearance. No gallstones are identified. There is no gallbladder wall thickening or pericholecystic fluid. A sonographic Jefferson's sign is reportedly absent. The common bile duct measures up to 0.5 cm in diameter. Pancreas: Visualized portions of the pancreatic head and body are normal in appearance. The splenic vein is patent. Right kidney: Survey images of the right kidney demonstrate normal size and echotexture. There is no hydronephrosis. Ascites: None. IMPRESSION: 1. No acute sonographic abnormality is identified in the right upper quadrant. No gallstones are seen. 2. The pancreas is normal as visualized. 3. Hepatomegaly and severe hepatic steatosis. Electronically signed by: Mathew Calero M.D. 09/22/2016 8:37 PM Dictated Date/Time: 09/22/2016 8:36 PM Consultations: Gastro Medication Reconciliation New Medications: Ranitidine HCl (Ranitidine HCl) 150 Mg Tab 150 MG PO BID for 30 Days, #60 TAB Sucralfate (Sucralfate) 1 Gm/10 Ml Susp 1 GM PO BID for 15 Days Continued Medications: Norethindrone Acetate (Norethindrone Acetate) 5 Mg Tab 5 MG PO DAILY, #40 TAB 1 TABLET FOUR TIMES A DAY FOR FOUR DAYS, 1 TABLET THREE TIMES A DAY FOR THREE DAYS, 1 TABLET TWO TIMES A DAY FOR TWO DAYS, 1 TABLET ONCE A DAY UNTIL ALL FINISHED. Discontinued Medications: Pantoprazole Sodium (Protonix) 40 Mg Tab 40 MG PO BID, TAB Admission Information HPI (per Admitting provider): Patient seen and examined. 26 year old female with PMHx of uterine fibroid presents to the ED complaining of abdominal pain x 3 days. Patient reports she has sharp and crampy abdominal pain in her RUQ and LUQ. She rates it as an 8/ 10. She has associated nausea, and vomiting. She was recently hospitalized in August with similar symptoms and had an MRCP, and EGD which showed a fatty liver and gastritis. She was treated discharged home with PPI and reports feeling well until a few days ago. She denies fevers, chills, chest pain, SOB, diarrhea , calf pain and edema. She denies any OTC meds. She is a social drinker and will have a few cocktails on the weekends. She still has her gallbladder. In the ED she is tachycardic, VS are otherwise stable, Lipase is >1000, LFTs are mildly elevated. Pancreatic US is pending. She received IVFs, antiemetics and morphine. She will be admitted for further workup and treatment. Physical Exam (per Admitting): General Appearance: + pertinent finding (Pleasant obese 26 year old female lying in bed in NAD ) Head: normocephalic, atraumatic Eyes: PERRL, EOMI, sclerae normal ENT: hearing grossly normal, pharynx normal Neck: supple, no JVD Respiratory/Chest: chest non-tender, lungs clear, normal breath sounds, no respiratory distress, no accessory muscle use Cardiovascular: no edema, no gallop, no JVD, no murmur, normal peripheral pulses, + tachycardia (120s, regular ) Abdomen/GI: normal bowel sounds, soft, + tenderness (primarily RUQ ) Back: normal inspection, no muscle spasm Extremities/Musculoskelatal: no calf tenderness, normal capillary refill, no pedal edema Neurologic/Psych: no motor/sensory deficits, alert, oriented x 3 Skin: normal color, warm/dry, no rash Lymphatic: no adenopathy Hospital Course ACUTE PANCREATITIS Elevated lipase Lipase this morning trending down to 1228 CT abdomen showed unremarkable CT scan of the pancreas. U/S abdomen No acute sonographic abnormality is identified in the right upper quadrant. No gallstones are seen Tolerated full liquid diet advance to low fat diet decrease IVF GI consult consulted Clinically improved significantly consider to discharge today if tolerated diet if symptoms continue to improve and lipase trending down, will consider to discharge Outpatient follow up with GI for EUS in 4 weeks DYSURIA/POSSIBLE UTI -UA showed leukocyte esterase , trace occult blood -pt complains of dysuria /increased frequency -Urine culture grew more than 3 organisms -ordered for Cipro empirically completed 5 days course - Stable HYPOKALEMIA K replaced continue monitor bmp H/O GASTRITIS EGD done in last admission shows grade B esophagitis and gastritis GI started her on Carafate and Zantac Repeat EGD schedule for 11/01/2016 ELEVATED AST Resolved H/O UTERINE FIBROID -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 Tsai on 09/30 at 2:50 pm Outpatient follow up with GI for EUS in 4 to 6 weeks Pt is taking a leave of absence from work. She is going back to work on 11/02/16 Total time spent on discharge = 35 minutes This includes examination of the patient, discharge planning, medication reconciliation, and communication with other providers. Discharge Instructions Discharge Instructions Date of Service September 29, 2016. Admission Reason for Admission: Acute Pancreatitis Discharge Discharge Diagnosis / Problem: Acute pancreatitis, Hypokalemia, H/o Gastritis, Elevated AST Discharge Goals Goal(s): Decrease discomfort, Improve function, Improve disease control Activity Recommendations Activity Limitations: resume your previous activity (advanced activity as tolerated ) . Instructions / Follow-Up Instructions / Follow-Up Follow up appointment with your PCP Dr. Tsai on 09/30@2:50pm Follow up with Gastro with Dr. Lai or Dr. Young in 4 to 6 weeks for the endoscopy ultrasound Increase potassium intake in diet Monitor BMP No alcohol consumption Low fat diet for now and advanced as tolerated Current Hospital Diet Patient's current hospital diet: Low Fiber Diet Discharge Diet Recommended Diet: Low Fat Diet Pending Studies Studies pending at discharge: no Laboratory Results Lipid Panel Test 08/31/16 07:02 Range/Units Triglycerides Level 122 0-150 mg/dl Cholesterol Level 191 0-200 mg/dl HDL Cholesterol 77 mg/dl Cholesterol/HDL Ratio 2.5 LDL Cholesterol, Calculated 90 mg/dl Medical Emergencies . Who to Call and When: Medical Emergencies: If at any time you feel your situation is an emergency, please call 911 immediately. . Non-Emergent Contact Non-Emergency issues call your: Primary Care Provider Call Non-Emergent contact if: you have a fever, your pain is worsening, your pain is concerning you, you have any medication questions . . "Provider Documentation" section prepared by Kirstin Cardona. . VTE Core Measure Inpt VTE Proph given/why not?: Enoxaparin (Lovenox)SQ Additional Copies To Logan Tsai D.O.
[2016-12-09] MEDS ORDERED: METO-157 PO (08:58)
== END 2016-09-29 20:22 | disposition home or self-care (01) | DRG 439 ==
LOC: ENRESERVDT → ENRESERVTM → C.EDB 16:48 → C.MSN 19:31
PROVIDERS: ADMIT Family Medicine; ATTEND Internal Medicine
DX: K85.90 Acute pancreatitis without necrosis or infection, unspecified (principal); N39.0 Urinary tract infection, site not specified; Z68.43 Body mass index [BMI] 50.0-59.9, adult; E87.6 Hypokalemia; E66.01 Morbid (severe) obesity due to excess calories; K76.0 Fatty (change of) liver, not elsewhere classified; Z83.3 Family history of diabetes mellitus; D25.9 Leiomyoma of uterus, unspecified

== ENCOUNTER 2016-10-07 14:36 | Inpatient (IN) | payer BC ==
[~2016-10-07] VITALS: Ht 167.6 cm; Wt 141.0 kg
[~2016-10-07 14:36] MED LIST changes: +CRFUDL PO; +NORE1TAB90 PO; -PRT40 PO; +ZNT150 PO
[2016-10-07] MEDS ORDERED: HYDROmorphone INJ 0.5 MG/0.5 ML SYR IV STA (15:01)
[2016-10-07] MEDS ORDERED: SODIUM CHLORIDE 0.9% 1000ML 1,000 ML IV STA ×2 (15:01→16:34)
[2016-10-07] MEDS ORDERED: ONDANSETRON 8 MG/54 ML D5W IV STA (15:01)
[2016-10-07] MEDS ORDERED: HYDROmorphone INJ 0.5 MG/0.5 ML SYR IV PRN (15:15)
[2016-10-07] MEDS ORDERED: PROMETHAZINE HCL INJ 25 MG in SODIUM CHLORIDE 0.9% 50ML 50 ML IV STA (15:26)
[2016-10-07 15:38] LABS: BASO ABS # 0.06 K/uL (0-0.2); COMPLETE YES; HEMATOCRIT 41.2 % (37-47); IG% 0.2 %; LYMPH % 21.5 %; LYMPH ABS # 1.35 K/uL (1.2-3.4); MEAN CELL VOLUME 82.2 fL (80-100); MEAN CORPUSCULAR HEMOGLOBIN 26.1 pg (25-34); MEAN CORPUSCULAR HGB CONC 31.8 g/dl (32-36); MEAN PLATELET VOLUME 9.6 fL (7.4-10.4); MONO % 6.5 %; NEUT % 70.8 %; PLATELET COUNT 491 K/uL (130-400); RED BLOOD COUNT 5.01 M/uL (4.2-5.4); WHITE BLOOD COUNT 6.29 K/uL (4.8-10.8)
[2016-10-07 15:48] LABS: PARTIAL THROMBOPLASTIN RATIO 0.9; PROTHROMBIN TIME (PATIENT) 11.1 SECONDS (9.0-12.0)
--- NOTE | 2016-10-07 15:55 | DIAGNOSTIC IMAGING REPORT ---
ABDOMEN 2VIEW W/PA CHEST RTN CLINICAL HISTORY: Epigastric pain COMPARISON STUDY: No previous studies for comparison. FINDINGS: Erect chest reveals no free air. There is no focal pulmonary consolidation. Erect and supine views the abdomen reveal no abnormally dilated loops of large or small bowel. There are no transition zones indicate bowel obstruction. IMPRESSION: No evidence of bowel obstruction. No evidence of free air. Electronically signed by: Jelani Escamilla M.D. 10/07/2016 3:54 PM Dictated Date/Time: 10/07/2016 3:53 PM
[2016-10-07 16:08] LABS: ALT/SGPT 87 U/L (12-78); AMYLASE 38 U/L (25-115); AST/SGOT 162 U/L (15-37); BLOOD UREA NITROGEN 5 mg/dl (7-18); BUN/CREATININE RATIO 4.3 (10-20); C-REACTIVE PROTEIN < 0.29 mg/dl (0-0.29); CALCIUM 9.2 mg/dl (8.5-10.1); CARBON DIOXIDE 16 mmol/L (21-32); CHLORIDE 106 mmol/L (98-107); GLUCOSE 80 mg/dl (70-99); POTASSIUM 4.3 mmol/L (3.5-5.1); SODIUM 141 mmol/L (136-145)
[2016-10-07 16:12] LABS: ALKALINE PHOSPHATASE 113 U/L (45-117)
--- NOTE | 2016-10-07 16:38 | EMERGENCY ROOM VISIT NOTE ---
History First contact with patient: 14:52 Chief Complaint: ABDOMINAL PAIN Stated Complaint: SEVERE ABDOMINAL PAIN History of Present Illness The patient is a 26 year old female, recent hospitalization for acute gastritis and pancreatitis, who presents to the Emergency Room with complaints of recurrent epigastric pain that started this morning upon awakening. She reports multiple episodes of vomiting with a constant pain in the epigastric region. It does not radiate into the chest, back or lower abdomen. The patient was prescribed Carafate and Zantac for her gastritis, and reports that her symptoms were improving until this morning. She denies eating any unusual foods or alcohol consumption over the past few days. She denies caffeine use, NSAIDs or aspirin use. She currently rates her discomfort a 9 out of 10. She denies any alleviating or aggravating factors for her pain. Review of Systems HEENT: Denies dizziness, visual problems, hearing loss, tinnitus. Denies difficulty swallowing or oral lesions. PULMONARY: Denies cough, shortness of breath, sputum production or hemoptysis. CARDIOVASCULAR: Denies chest pain, palpitations, dyspnea on exertion, orthopnea or peripheral edema. GASTROINTESTINAL: See history of present illness. GENITOURINARY: Denies dysuria, frequency, urgency or nocturia. NEUROLOGIC: Denies history of epilepsy, CVA, TIA or chronic headaches. MUSCULOSKELETAL: Denies history of joint tenderness/swelling. SKIN: Denies rashes or lesions. PSYCHIATRIC: Denies history of depression or mental illness. ENDOCRINE: Denies history of diabetes or thyroid disorders. Past Medical/Surgical History Medical Problems: (1) Abdominal pain (2) Abnormal vaginal bleeding (3) Acute pancreatitis (4) Elevated bilirubin (5) Gastritis (6) Morbid obesity (7) Uterine fibroid (8) Uterine fibroid Surgical Problems: (1) History of esophagogastroduodenoscopy (EGD) Family History Diabetes mellitus Heart disease Hypertension Kidney disease Kidney stones Social History Smoking Status: Never Smoker Alcohol Use: occasionally Drug Use: none Marital Status: single Housing Status: lives alone 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 Current/Historical Medications Scheduled Norethindrone Acetate (Norethindrone Acetate), 5 MG PO DAILY Ranitidine HCl (Ranitidine HCl), 150 MG PO BID Sucralfate (Sucralfate), 1 GM PO BID Allergies Coded Allergies: No Known Allergies (Unverified , 10/07/16) Physical Exam Vital Signs Date Time Temp Pulse Resp B/P Pulse Ox O2 Delivery O2 Flow Rate FiO2 10/07/16 14:46 36.8 152 20 142/98 97 Room Air Physical Exam CONSTITUTIONAL: Morbidly obese female, alert and oriented X 3 with positive affect. Patient appears in moderately severe discomfort, and is crying. HEENT: Normocephalic, atraumatic. Pupils equal, round and reactive. Ears and nares are clear. No scleral icterus or conjunctival injection/pallor. OROPHARYNX: No posterior frontal erythema or tonsillar hypertrophy. NECK: Full active range of motion without discomfort. No JVD or carotid bruits. No nuchal rigidity. RESPIRATORY: Clear to auscultation bilaterally with no wheezing, crackles, rhonchi or stridor. CARDIOVASCULAR: Regular rate and rhythm with no murmurs, rubs or gallops. GASTROINTESTINAL: Bowel sounds present in all quadrants. The patient has notable epigastric tenderness to palpation. No obvious hepatosplenomegaly given body habitus. Negative McBurney's point tenderness. No left lower quadrant tenderness to palpation. Negative CVA tenderness. No abdominal rigidity, guarding or rebound. MUSCULOSKELETAL: Full range of motion of all joints without discomfort. INTEGUMENTARY: No rash or other significant dermatologic conditions noted. NEUROLOGIC: No focal neurologic deficits noted. Medical Decision & Procedures ER Provider Diagnostic Interpretation: My interpretation of an abdomen obstruction series with PA chest does not show any acute obstruction or abdominal free air. Radiologist report is as follows: ABDOMEN 2VIEW W/PA CHEST RTN CLINICAL HISTORY: Epigastric pain COMPARISON STUDY: No previous studies for comparison. FINDINGS: Erect chest reveals no free air. There is no focal pulmonary consolidation. Erect and supine views the abdomen reveal no abnormally dilated loops of large or small bowel. There are no transition zones indicate bowel obstruction. IMPRESSION: No evidence of bowel obstruction. No evidence of free air. Laboratory Results 10/07/16 15:25 Red Blood Count 5.01, Mean Corpuscular Volume 82.2, Mean Corpuscular Hemoglobin 26.1, Mean Corpuscular Hemoglobin Concent 31.8, Mean Platelet Volume 9.6, Neutrophils (%) (Auto) 70.8, Lymphocytes (%) (Auto) 21.5, Monocytes (%) (Auto) 6.5, Eosinophils (%) (Auto) 0.0, Basophils (%) (Auto) 1.0, Neutrophils # (Auto) 4.46, Lymphocytes # (Auto) 1.35, Monocytes # (Auto) 0.41, Eosinophils # (Auto) 0.00, Basophils # (Auto) 0.06 10/07/16 15:25 Test 10/07/16 15:25 White Blood Count 6.29 K/uL (4.8-10.8) Red Blood Count 5.01 M/uL (4.2-5.4) Hemoglobin 13.1 g/dL (12.0-16.0) Hematocrit 41.2 % (37-47) Mean Corpuscular Volume 82.2 fL (80-100) Mean Corpuscular Hemoglobin 26.1 pg (25-34) Mean Corpuscular Hemoglobin Concent 31.8 g/dl (32-36) Platelet Count 491 K/uL (130-400) Mean Platelet Volume 9.6 fL (7.4-10.4) Neutrophils (%) (Auto) 70.8 % Lymphocytes (%) (Auto) 21.5 % Monocytes (%) (Auto) 6.5 % Eosinophils (%) (Auto) 0.0 % Basophils (%) (Auto) 1.0 % Neutrophils # (Auto) 4.46 K/uL (1.4-6.5) Lymphocytes # (Auto) 1.35 K/uL (1.2-3.4) Monocytes # (Auto) 0.41 K/uL (0.11-0.59) Eosinophils # (Auto) 0.00 K/uL (0-0.5) Basophils # (Auto) 0.06 K/uL (0-0.2) RDW Standard Deviation 59.0 fL (36.4-46.3) RDW Coefficient of Variation 19.9 % (11.5-14.5) Immature Granulocyte % (Auto) 0.2 % Immature Granulocyte # (Auto) 0.01 K/uL (0.00-0.02) Erythrocyte Sedimentation Rate 39 mm/hr (0-21) Prothrombin Time 11.1 SECONDS (9.0-12.0) Prothromb Time International Ratio 1.0 (0.9-1.1) Activated Partial Thromboplast Time 24.6 SECONDS (21.0-31.0) Partial Thromboplastin Ratio 0.9 Anion Gap 19.0 mmol/L (3-11) Est Creatinine Clear Calc Drug Dose 108.8 ml/min Estimated GFR () 79.1 Estimated GFR (Non- 68.3 BUN/Creatinine Ratio 4.3 (10-20) Calcium Level 9.2 mg/dl (8.5-10.1) Total Bilirubin 1.1 mg/dl (0.2-1) Direct Bilirubin 0.3 mg/dl (0-0.2) Aspartate Amino Transf (AST/SGOT) 162 U/L (15-37) Alanine Aminotransferase (ALT/SGPT) 87 U/L (12-78) Alkaline Phosphatase 113 U/L (45-117) Total Creatine Kinase 239 U/L (26-192) C-Reactive Protein < 0.29 mg/dl (0-0.29) Total Protein 9.2 gm/dl (6.4-8.2) Albumin 4.5 gm/dl (3.4-5.0) Amylase Level 38 U/L (25-115) Lipase 665 U/L (73-393) The above labs were reviewed. Lipase is elevated at 665. Amylase is normal. The patient also has elevated LFTs, total and direct bilirubin. The patient has no leukocytosis, and remaining electrolytes are otherwise grossly normal. Medications Administered Medications (Trade) Dose Ordered Sig/Marlin Route Start Time Stop Time Status Last Admin Dose Admin Sodium Chloride (Nss 1000ml) 1,000 ml @ 999 mls/hr Q1H1M STAT IV 10/07/16 15:01 10/07/16 16:01 DC 10/07/16 15:28 999 MLS/HR Hydromorphone HCl 0.5 mg 0.5 mg NOW STAT IV 10/07/16 15:01 10/07/16 15:04 DC 10/07/16 15:55 0.5 MG Promethazine HCl/ Sodium Chloride (Phenergan Inj/ Nss 50ml) 51 ml @ 204 mls/hr NOW STAT IV 10/07/16 15:26 10/07/16 15:40 DC 10/07/16 15:55 204 MLS/HR Procedure 1. IV hydration: The patient received a 2 L normal saline bolus 2. IV medications: The patient was initially administered hydromorphone 0.5 mg and Phenergan 25 mg IVP. With persistent pain, she was administered an additional hydromorphone 0.5 mg. ED Course Patient history and physical exam were performed. Nurse's notes were reviewed. Vital signs were reviewed, showing an elevated blood pressure 142/98. Pulse rate is 152. The patient is afebrile. I also reviewed a portion of prior medical records, including notes from her last admission. She did have an EGD performed showing acute gastritis. She is scheduled for repeat EGD 07/05/17. An abdominal CT and ultrasound showed an unremarkable pancreas. It is noted that the patient was started on Carafate and Zantac, of which the patient reports improvement of his symptoms before this morning. IV access was established, and labs were drawn. The patient was hydrated with normal saline, and received IV analgesics and antiemetics as discussed in the previous Procedure section. Review of labs shows an elevated lipase of 665. Sedimentation rate is also elevated. White count is otherwise normal. The patient was unable to provide urine for a urinalysis. An abdomen obstruction series was also normal. After workup was completed, the patient reported that she still did not feel well. She did have moderate improvement of her nausea, but still had abdominal pain rated an 8 out of 10. She was administered an additional dose of Dilaudid, and was ordered a second liter of normal saline. The case was further discussed with Dr. Reynolds, ED attending physician, who agrees with hospitalist evaluation. Consultation was placed with the [facility] hospitalist service. Please see their dictation for further evaluation, management and disposition. Medical Decision Patient presents with recurrent epigastric pain that is similar to the pain she had 2 weeks ago when admitted to our facility. She was diagnosed with acute pancreatitis and gastritis after undergoing EGD studies. It is noted that her ultrasound and CT study from her last hospitalization was normal. She was scheduled for repeat EGD in approximately 2 weeks. Her abdominal exam is otherwise benign, therefore I do not suspect peritonitis, pyelonephritis, appendicitis, ischemic gut or colitis. Her x-ray does not show any evidence for free air or obstruction. I do not suspect cardiopulmonary referred pain. Impression Primary Impression: Pancreatitis Additional Impressions: History of esophagogastroduodenoscopy (EGD) Gastritis Departure Information Referrals Logan Tsai D.OSybil (PCP) Patient Instructions My [facility] Problem Qualifiers Primary Impression: Pancreatitis Chronicity: acute Pancreatitis type: idiopathic Acute pancreatitis complication: unspecified Qualified Codes: K85.00 - Idiopathic acute pancreatitis without necrosis or infection Additional Impressions: Gastritis Gastritis type: unspecified gastritis Chronicity: acute Gastritis bleeding : without bleeding Qualified Codes: K29.00 - Acute gastritis without bleeding
[2016-10-07] MEDS ORDERED: MULT-506 PO (17:52)
[2016-10-07] MEDS ORDERED: CHOL100010 PO (17:52)
[2016-10-07] MEDS ORDERED: MoRPHine SULFATE 4 MG/ML 1 ML CARP\\VIAL IV PRN (18:00)
[2016-10-07] MEDS ORDERED: CYAN100073 PO (18:01)
[2016-10-07] MEDS ORDERED: MISCCAP80 PO (18:01)
[2016-10-07 18:28] LABS: URINE APPEARANCE CLOUDY (CLEAR); URINE BILIRUBIN NEG (NEG); URINE COLOR YELLOW; URINE EPITHELIAL CELL AUTO >30 /lpf (0-5); URINE NITRITE NEG (NEG); URINE PH 5.5 (4.5-7.5); URINE SPECIFIC GRAVITY 1.025 (1.000-1.030); UROBILINOGEN NEG (NEG)
[2016-10-07 18:32] LABS: MANUAL MICROSCOPIC REQUIRED? NO; REVIEW REQ? YES
[2016-10-07] MEDS ORDERED: IV FLUIDS COMPLETED PRN (18:45)
[2016-10-07 18:54] VITALS: BP 155/117; PULSE 110; TEMP 36.6; O2SAT 94; Ht 167.6 cm; Wt 141.0 kg
[2016-10-07] MEDS ORDERED: OPTIRAY 320 IV PRN (19:00)
[2016-10-07 20:00] VITALS: O2SAT 96
[2016-10-07] MEDS: SODIUM CHLORIDE 0.9% 1000ML 1,000 ML IV SCH (20:00)
[2016-10-07] MEDS: PROMETHAZINE HCL INJ 25 MG in SODIUM CHLORIDE 0.9% 50ML 50 ML IV PRN (21:01)
--- NOTE | 2016-10-07 21:32 | DIAGNOSTIC IMAGING REPORT ---
CHEST CTA for PULMONARY ARTERIES CT DOSE: 641.10 mGy.cm HISTORY: Chest pain dyspnea TECHNIQUE: Multiaxial CT images of the chest were performed following the intravenous administration of contrast to evaluate the pulmonary arteries. Maximal intensity projection images were also obtained. COMPARISON STUDY: None. FINDINGS: There is a normal caliber thoracic aorta with no evidence for dissection. There is no evidence for pulmonary embolus. No pleural effusions. No pneumothorax. The liver and spleen are unremarkable. No mediastinal or hilar lymphadenopathy. The central airways are patent. The lungs are clear. His note is made of fatty infiltration of liver IMPRESSION: . 1. Study is negative for pulmonary embolus. 2. Lungs are considered clear. 3. Fatty infiltration of liver. 4. Small hiatal hernia. Electronically signed by: Toro Singh M.D. 10/07/2016 9:31 PM Dictated Date/Time: 10/07/2016 9:28 PM
[2016-10-07] MEDS ORDERED: PANTOprazole INJ 40 MG in SYRINGE 0 ML IV SCH (21:45)
[2016-10-07] MEDS ORDERED: ALUMINUM/MAGNESIUM/SIMETH (MAALOX MAX) 30 ML UDC PO PRN (21:45)
--- NOTE | 2016-10-07 22:01 | History and Physical ---
History & Physical Date & Time of Service: October 07, 2016 at 17:35 Chief Complaint: Severe Abdominal Pain Primary Care Physician: Logan Tsai D.OSybil History of Present Illness Source: patient, hospital records This is a 22 year old female with PMH of acute pancreatitis, h/o esophagitis/ gastritis, fatty liver, uterine fibroid, who presents to the ED with abdominal pain with N/V. Patient was recently admitted in August 2016 for epigastric pain, mildly elevated LT likely secondary to fatty liver. Had gallbladder US showing no gallstones, hepatomegaly and severe hepatic stenosis, MRCP which showed fatty liver, EGD which showed LA grade B esophagitis. She was then admitted September 24-[address] for [address] abdomen showed unremarkable pancreas, hepatomegaly, hepatic steatosis. RUQ US showed no acute GB findings. Patient was seen by GI and planned for outpatient EUS 4 weeks after discharge. Pt was treated with Cipro for possible UTI with resolution of urinary symptoms. She was sent home on ranitidine and sucralfate and was eating normally and feeling better up until this morning. Since this am has nausea with approx 10 episodes of vomiting. She received Phenergan in ER but still felt nauseous and vomited while I was in the room. She reports associated dull diffuse abdominal pain rated 9/10. She states it feels the same as prior episode of pancreatitis. She has been tachycardic in the ER with rates as high as 160's and now running 120s. BP has been elevated. She received IVF's in the ER. Feels a little dizzy. No fever, chills, cough, SOB, chest pain, palpitations, diarrhea, constipation, hematochezia, melena, urinary symptoms. Past Medical/Surgical History Medical Problems: (1) Abnormal vaginal bleeding Status: Resolved (2) Depression Status: Chronic (3) Gastritis Status: Chronic (4) Morbid obesity Status: Chronic (5) Uterine fibroid Status: Resolved (6) Uterine fibroid Status: Chronic Surgical Problems: (1) History of esophagogastroduodenoscopy (EGD) Permanent Comment: 09/01/16- - LA Grade B reflux esophagitis Status: Chronic Family History Diabetes mellitus Heart disease Hypertension Kidney disease Kidney stones Social History Smoking Status: Never Smoker Alcohol Use: none (prior social drinker, however no recnet etoh intake since recent bouts of pancreatitis) Drug Use: none Marital Status: single Housing status: lives alone 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 Allergies Coded Allergies: Ondansetron (Verified Allergy, Unknown, lip tingling, 10/07/16) Home Medications Scheduled Cholecalciferol (Vitamin D), Unknown Dose PO DAILY Cyanocobalamin (B12), 1 TAB PO DAILY Multivitamin (Multivitamin), 1 TAB PO DAILY Norethindrone Acetate (Norethindrone Acetate), 5 MG PO DAILY Probiotic Product (Probiotic), 1 CAP PO DAILY Ranitidine HCl (Ranitidine HCl), 150 MG PO BID Sucralfate (Sucralfate), 1 GM PO BID Review of Systems Ten systems reviewed and negative except as noted in HPI. Physical Exam Vital Signs Date Time Temp Pulse Resp B/P Pulse Ox O2 Delivery O2 Flow Rate FiO2 10/07/16 17:13 163 10/07/16 16:48 110 10/07/16 14:46 36.8 152 20 142/98 97 Room Air General Appearance: + pertinent finding (alert obese 26 year old female, uncomfortable due to nausea, vomiting during exam) Head: normocephalic, atraumatic Eyes: normal inspection, PERRL, EOMI ENT: hearing grossly normal, pharynx normal Neck: supple, trachea midline Respiratory/Chest: lungs clear, normal breath sounds, no respiratory distress, no accessory muscle use Cardiovascular: no murmur, + tachycardia (regular rhythm, rate 150 improved to 120) Abdomen/GI: normal bowel sounds, soft, + pertinent finding (tender in epigastrium and ) Extremities/Musculoskelatal: no calf tenderness, no pedal edema Neurologic/Psych: alert, normal mood/affect, oriented x 3 Skin: normal color, warm/dry Diagnostics Laboratory Results Results Past 24 Hours Test 10/07/16 15:25 Range/Units White Blood Count 6.29 4.8-10.8 K/uL Red Blood Count 5.01 4.2-5.4 M/uL Hemoglobin 13.1 12.0-16.0 g/dL Hematocrit 41.2 37-47 % Mean Corpuscular Volume 82.2 80-100 fL Mean Corpuscular Hemoglobin 26.1 25-34 pg Mean Corpuscular Hemoglobin Concent 31.8 32-36 g/dl Platelet Count 491 130-400 K/uL Mean Platelet Volume 9.6 7.4-10.4 fL Neutrophils (%) (Auto) 70.8 % Lymphocytes (%) (Auto) 21.5 % Monocytes (%) (Auto) 6.5 % Eosinophils (%) (Auto) 0.0 % Basophils (%) (Auto) 1.0 % Neutrophils # (Auto) 4.46 1.4-6.5 K/uL Lymphocytes # (Auto) 1.35 1.2-3.4 K/uL Monocytes # (Auto) 0.41 0.11-0.59 K/uL Eosinophils # (Auto) 0.00 0-0.5 K/uL Basophils # (Auto) 0.06 0-0.2 K/uL RDW Standard Deviation 59.0 36.4-46.3 fL RDW Coefficient of Variation 19.9 11.5-14.5 % Immature Granulocyte % (Auto) 0.2 % Immature Granulocyte # (Auto) 0.01 0.00-0.02 K/uL Erythrocyte Sedimentation Rate 39 0-21 mm/hr Prothrombin Time 11.1 9.0-12.0 SECONDS Prothromb Time International Ratio 1.0 0.9-1.1 Activated Partial Thromboplast Time 24.6 21.0-31.0 SECONDS Partial Thromboplastin Ratio 0.9 Sodium Level 141 136-145 mmol/L Potassium Level 4.3 3.5-5.1 mmol/L Chloride Level 106 98-107 mmol/L Carbon Dioxide Level 16 21-32 mmol/L Anion Gap 19.0 3-11 mmol/L Blood Urea Nitrogen 5 7-18 mg/dl Creatinine 1.10 0.60-1.20 mg/dl Est Creatinine Clear Calc Drug Dose 108.8 ml/min Estimated GFR () 79.1 Estimated GFR (Non- 68.3 BUN/Creatinine Ratio 4.3 10-20 Random Glucose 80 70-99 mg/dl Calcium Level 9.2 8.5-10.1 mg/dl Total Bilirubin 1.1 0.2-1 mg/dl Direct Bilirubin 0.3 0-0.2 mg/dl Aspartate Amino Transf (AST/SGOT) 162 15-37 U/L Alanine Aminotransferase (ALT/SGPT) 87 12-78 U/L Alkaline Phosphatase 113 45-117 U/L Total Creatine Kinase 239 26-192 U/L C-Reactive Protein < 0.29 0-0.29 mg/dl Total Protein 9.2 6.4-8.2 gm/dl Albumin 4.5 3.4-5.0 gm/dl Amylase Level 38 25-115 U/L Lipase 665 73-393 U/L Diagnostic Radiology ABDOMEN 2VIEW W/PA CHEST RTN CLINICAL HISTORY: Epigastric pain COMPARISON STUDY: No previous studies for comparison. FINDINGS: Erect chest reveals no free air. There is no focal pulmonary consolidation. Erect and supine views the abdomen reveal no abnormally dilated loops of large or small bowel. There are no transition zones indicate bowel obstruction. IMPRESSION: No evidence of bowel obstruction. No evidence of free air. CHEST CTA for PULMONARY ARTERIES CT DOSE: 641.10 mGy.cm HISTORY: Chest pain dyspnea TECHNIQUE: Multiaxial CT images of the chest were performed following the intravenous administration of contrast to evaluate the pulmonary arteries. Maximal intensity projection images were also obtained. COMPARISON STUDY: None. FINDINGS: There is a normal caliber thoracic aorta with no evidence for dissection. There is no evidence for pulmonary embolus. No pleural effusions. No pneumothorax. The liver and spleen are unremarkable. No mediastinal or hilar lymphadenopathy. The central airways are patent. The lungs are clear. His note is made of fatty infiltration of liver IMPRESSION: . 1. Study is negative for pulmonary embolus. 2. Lungs are considered clear. 3. Fatty infiltration of liver. 4. Small hiatal hernia. EKG sinus tachycardia, rate 106, no acute ischemic findings Impression Assessment and Plan ABDOMINAL PAIN with VOMITING Possible acute pancreatitis? gastritis? Hx of acute pancreatitis on recent admission 09/2016- w/up included CT a/p- unremarkable pancreas, + hepatomegaly and hepatic steatosis, GB US- no acute abnormality, no gallstones Had MRCP August 2016- fatty liver Hx grade B esophagitis on EGD in August 2016 Abdominal x-ray- no evidence of obstruction or free air Lipase mildly elevated to 665 LFT's elevated, also abnormal on past admission Continue IVF's at 200 mL/ hour NPO except ice chips/ sips Pain control with IV morphine Antiemetics PRN IV PPI and carafate Repeat LFT's/ lipase in am Consult GI SINUS TACHYCARDIA Possibly due to dehydration, pain POC d dimer elevated to 2276 CTA chest- negative for PE LE dopplers pending ORAL CONTRACEPTIVE USE Hold due to acute pancreatitis/ elevated LFTs DVT PROPHYLAXIS Lovenox SQ FULL CODE DISPOSITION Observation telemetry Follows with Dr. Tsai for primary care Patient seen in collaboration with Dr. Muñoz. Please see her addendum. ATTENDING NOTE : records reviewed , pt interviewed and examined care coordinated with Cheyenne Quiñonez please see her documentation for detail patient history Briefly this is 26 yo female admitted with abdominal pain , intractable nausea / vomiting , elevated Lipase level discharged on 09/29/16 for similar symptom this is pt's 3 rd admission in past few months for same diagnosis had extensive GI work up done -was essentially negative except for hepatic steatosis P/E: GEN ;in distress for abdominal pain HEENT : sclera non icteric HT : tachycardic LUNGS; CTA no wheeze or rales ABDOMEN: soft, non tender EXT ; no rash or deformity NEURO: AAO x3, no focal deficit A/P : ABDOMINAL PAIN /NAUSEA /VOMITING /POSSIBLE PANCREATITIS : frequent admissions on past few months with similar problem Lipase level was elevated > 3000 in recent admission improved to 1200 on 09/29/16 prior to discharge presented with Lipase level ~600 with worsening of epigastric pain Xray of abdomen -negative for obstruction ordered for NPO , bowel rest IV fluid GI eval requested , pt is known to [facility] GI team form the prior admissions SINUS TACHYCARDIA ; no complain of SOB or hypoxia possible due to pain /discomfort ? D dimer elevated CT chest with contrast -negative for PE lower ext Doppler -negative for DVT cont Pain control , IV Fluid monitor in Tele DVT PROPHYLAXIS : moderate to high risk repeated hospital admission Sub q Lovenox Full code please refer to documentation of Cheyenne Polanco PA-C for detail discussion of other issues Lacy Muñoz MD Level of Care Telemetry Resuscitation Status FULL RESUSCITATION VTE Prophylaxis VTE Risk Assessment Done? Y/N: Yes Risk Level: Low Given or contraindicated: Enoxaparin (Lovenox)SQ Additional Copies To Logan Tsai, Basil Berrios, DO
[2016-10-07] MEDS: SUCRALFATE 1 GM/10 ML UDC PO SCH (22:12)
[2016-10-07] MEDS: ENOXAPARIN 40 MG/0.4 ML SYR SC SCH (22:14)
--- NOTE | 2016-10-07 22:14 | DIAGNOSTIC IMAGING REPORT ---
BILATERAL LOWER EXTREMITY VENOUS DOPPLER HISTORY: Pain. Edema. TACHYCARDIA /ELEVATED D DIMER COMPARISON STUDY: None. FINDINGS: There is normal compressibility, flow, and augmentation within the bilateral lower extremity deep venous systems. IMPRESSION: No DVT within the right or left lower extremity. Electronically signed by: Toro Singh M.D. 10/07/2016 10:12 PM Dictated Date/Time: 10/07/2016 10:12 PM
[2016-10-07] MEDS ORDERED: NURSING VERBAL MED ORDER ONE (23:00)
[2016-10-07] MEDS: FAMOTIDINE IV INJ 20 MG in DEXTROSE 5% 100ML 100 ML IV SCH (23:07)
[2016-10-07] MEDS: HYDROmorphone INJ 1 MG/ML SYR IV PRN (23:08)
[2016-10-07 23:55] VITALS: BP 154/97; PULSE 125; TEMP 37.2; O2SAT 97
[2016-10-07 23:59] VITALS: O2SAT 96
[2016-10-08] VITALS (8 sets, daily range): BP systolic 115–151; BP diastolic 69–120; PULSE 75–109; TEMP 36.5–37.4; O2SAT 95–100
[2016-10-08] MEDS: SODIUM CHLORIDE 0.9% 1000ML 1,000 ML IV SCH ×2 (01:22→06:27)
[2016-10-08] MEDS: HYDROmorphone INJ 1 MG/ML SYR IV PRN ×4 (03:14→21:03)
--- NOTE | 2016-10-08 07:37 | Gastrointestinal Consultation ---
Gastrointestinal Consultation Date of Consultation: October 08, 2016 Attending Physician: Toni Consulting Physician: Padmini Reason for Consultation: abdominal pain History of Present Illness Patient is a 26 year old female w/ PMH significant of gastritis, uterine fibroid , esophagitis found on recent EGD who presented to ED w c/o abd pain on RUQ and LUQ areas which she described as sharp and crampy. She has associated nausea, vomiting. GI was consulted for ongoing management. She had been doing well since discharge on 09/29/16 and was following an outpatient low fat diet. Yesreday she had abrupt onset constant epigastric pain with associated nausea and vomiting. The pain radiates throughout the whole abdomen but is more prominent and severe in the upper abdomen. Last episode of emesis was 0300 . She had similar symptoms when she was hospitalized 09/23/16 and 08/31/16. Work up included RUQ US, CT abd/pelvis, MRI/MRCP which showed hepatic steatosis w/o signs of choledocholithiasis or cholelithiasis. LFTs mildly elevated then but may be related to hepatic steatosis. EGD/EUS was scheduled as an outpatient for ongoing assessment. She had runs of tachycardia overnight - per nursing staff pt w/ 150/160 on Monitor. Manual HR check was 120. She was in bed and was not symptomatic or aware of tachycardia KUB 10/07/16: No evidence of bowel obstruction. No evidence of free air. Chest CTA 10/07/16: Study is negative for pulmonary embolus. Lungs are considered clear. Fatty infiltration of liver. Small hiatal hernia. Venous Doppler 10/07/16: No DVT within the right or left lower extremity. IgG G1 586 - normal IgG G2 469 - normal IgG G3 54 - normal IgG G4 28 - normal ARA negative Past Medical/Surgical History Medical Problems: (1) Dehydration Status: Acute (2) Gastritis Status: Chronic (3) Intractable abdominal pain Status: Acute (4) Pancreatic mass Status: Acute (5) Pancreatitis Status: Acute (6) Pancreatitis Status: Acute Surgical Problems: (1) History of esophagogastroduodenoscopy (EGD) Permanent Comment: 09/01/16- - LA Grade B reflux esophagitis Status: Chronic Past Medical History: pancreatitis, gastritis, uterine fibroid, esophagitis Past Surgical History: EGD Family History Diabetes mellitus Heart disease Hypertension Kidney disease Kidney stones Social History Smoking Status: Never Smoker Alcohol Use: occasionally Drug Use: none Marital Status: single Housing Status: lives alone 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 Allergies Coded Allergies: Ondansetron (Verified Allergy, Unknown, lip tingling, 10/07/16) Current Medications Home Meds and Scripts Medications Dose Route/Sig Max Daily Dose Days Date Category Probiotic (Probiotic Product) 1 Cap Cap 1 Cap PO DAILY 10/07/16 Reported B12 (Cyanocobalamin) Unknown Strength Tab 1 Tab PO DAILY 10/07/16 Reported Vitamin D (Cholecalciferol) Unknown Strength Tab Unknown Dose PO DAILY 10/07/16 Reported Multivitamin (Multivitamins) Tab 1 Tab PO DAILY 10/07/16 Reported Sucralfate 1 Gm/10 Ml Susp 1 Gm PO BID 15 09/29/16 Rx Ranitidine HCl 150 Mg Tab 150 Mg PO BID 30 09/29/16 Rx Norethindrone Acetate 5 Mg Tab 5 Mg PO DAILY 09/22/16 Reported Review of Systems Constitutional: No chills, No fever Respiratory: No cough, No shortness of breath Cardiac: No chest pain, No edema Abdomen: + nausea, + pain, + vomiting, No GI bleeding, No constipation, No diarrhea Skin: No rash Physical Exam Date Time Temp Pulse Resp B/P Pulse Ox O2 Delivery O2 Flow Rate FiO2 10/08/16 04:43 37.4 109 18 147/91 98 Room Air 10/08/16 04:00 96 Room Air 10/07/16 23:59 96 Room Air 10/07/16 23:55 37.2 125 18 154/97 97 Room Air 10/07/16 20:00 96 Room Air 10/07/16 19:14 108 18 128/71 96 10/07/16 18:54 36.6 110 16 155/117 94 Room Air 10/07/16 17:13 163 10/07/16 16:48 110 10/07/16 14:46 36.8 152 20 142/98 97 Room Air General Appearance: no apparent distress (pt is resting in bed, has a flight at 0600 10/09/16 to [place]) Eyes: PERRL ENT: hearing grossly normal Neck: supple Respiratory/Chest: lungs clear, + decreased breath sounds (at bases) Cardiovascular: no gallop, no murmur, + tachycardia, + pertinent finding (S1 S2 normal) Abdomen: normal bowel sounds, soft, no organomegaly, no pulsatile mass, + tenderness (severe epigastric tenderness to light palpation, generalized tenderness x 4 quadrants) Neurologic/Psych: alert, normal mood/affect, oriented x 3 Skin: normal color, no jaundice, warm/dry, no rash Laboratory Results Last 24 Hours Test 10/07/16 15:25 10/07/16 17:45 10/08/16 04:44 White Blood Count 6.29 K/uL Red Blood Count 5.01 M/uL Hemoglobin 13.1 g/dL Hematocrit 41.2 % Mean Corpuscular Volume 82.2 fL Mean Corpuscular Hemoglobin 26.1 pg Mean Corpuscular Hemoglobin Concent 31.8 g/dl Platelet Count 491 K/uL Mean Platelet Volume 9.6 fL Neutrophils (%) (Auto) 70.8 % Lymphocytes (%) (Auto) 21.5 % Monocytes (%) (Auto) 6.5 % Eosinophils (%) (Auto) 0.0 % Basophils (%) (Auto) 1.0 % Neutrophils # (Auto) 4.46 K/uL Lymphocytes # (Auto) 1.35 K/uL Monocytes # (Auto) 0.41 K/uL Eosinophils # (Auto) 0.00 K/uL Basophils # (Auto) 0.06 K/uL RDW Standard Deviation 59.0 fL RDW Coefficient of Variation 19.9 % Immature Granulocyte % (Auto) 0.2 % Immature Granulocyte # (Auto) 0.01 K/uL Erythrocyte Sedimentation Rate 39 mm/hr Prothrombin Time 11.1 SECONDS Prothromb Time International Ratio 1.0 Activated Partial Thromboplast Time 24.6 SECONDS Partial Thromboplastin Ratio 0.9 Sodium Level 141 mmol/L Potassium Level 4.3 mmol/L Chloride Level 106 mmol/L Carbon Dioxide Level 16 mmol/L Anion Gap 19.0 mmol/L Blood Urea Nitrogen 5 mg/dl Creatinine 1.10 mg/dl Est Creatinine Clear Calc Drug Dose 108.8 ml/min Estimated GFR () 79.1 Estimated GFR (Non- 68.3 BUN/Creatinine Ratio 4.3 Random Glucose 80 mg/dl Calcium Level 9.2 mg/dl Total Bilirubin 1.1 mg/dl Direct Bilirubin 0.3 mg/dl Aspartate Amino Transf (AST/SGOT) 162 U/L Alanine Aminotransferase (ALT/SGPT) 87 U/L Alkaline Phosphatase 113 U/L Total Creatine Kinase 239 U/L Troponin I < 0.015 ng/ml C-Reactive Protein < 0.29 mg/dl Total Protein 9.2 gm/dl Albumin 4.5 gm/dl Amylase Level 38 U/L Lipase 665 U/L Thyroid Stimulating Hormone (TSH) 0.674 uIu/ml Urine Color YELLOW Urine Appearance CLOUDY Urine pH 5.5 Urine Specific [place] 1.025 Urine Protein 1+ Urine Glucose (UA) NEG Urine Ketones 4+ Urine Occult Blood NEG Urine Nitrite NEG Urine Bilirubin NEG Urine Urobilinogen NEG Urine Leukocyte Esterase NEG Urine WBC (Auto) 10-30 /hpf Urine RBC (Auto) 0-4 /hpf Urine Hyaline Casts (Auto) /lpf Urine Epithelial Cells (Auto) >30 /lpf Urine Bacteria (Auto) 4+ Urine Pathogenic Casts /lpf Urine Test NEG Impression Patient is a 26 year old female with abrupt onset epigatric pain with radiation to RUQ and generalized throughout the abdomen with associated N/V. Lipase on admission was 665, this AM 875. LFTs appear to be mildly elevated, stable to labs at discharge. Plan NPO after midnight 10/10/16 for EUS on 10/11/16 at 730 am NPO for bowel rest Advance to clear liquids if feeling well this afternoon LR 200 ml/hr antiemetics PRN pain medications PRN RUQ US HIDA scan surgery referral if abnormal Monitor LFTs Obtain additional imaging/MRCP if there is acute elevation of LFTs Outpatient genetic labs for pancreatitis Primary team ? consider cardiology consult for tachycardia GI to follow. Please call with any questions. ATTESTATION: I have performed a history and physical examination of this patient and reviewed the electronic record. Specifically, on physical examination there is mild epigastric tenderness. I discussed the case with Dr. Lai and will proceed with EUS Tuesday. I have discussed the case with RITA Medrano. The above note reflects my findings, conclusions, and recommendations. Vladimir Washington MD
[2016-10-08] MEDS: FAMOTIDINE IV INJ 20 MG in DEXTROSE 5% 100ML 100 ML IV SCH ×2 (08:41→21:02)
[2016-10-08] MEDS: SUCRALFATE 1 GM/10 ML UDC PO SCH ×4 (08:41→21:02)
[2016-10-08] MEDS: LACTATED RINGER'S 1000ML 1,000 ML IV SCH ×2 (10:55→23:45)
[2016-10-08] MEDS ORDERED: HYDROmorphone INJ 1 MG/ML SYR IV STA (11:57)
--- NOTE | 2016-10-08 15:22 | DIAGNOSTIC IMAGING REPORT ---
Limited pancreatic ultrasound (PANCREAS) ABDOMEN LTD CLINICAL HISTORY: RUQ pain, elevated lipase pain. Nausea. TECHNIQUE: Ultrasound COMPARISON STUDY: 09/22/2016 FINDINGS: Limited study due to patient body habitus. Visualized components of the pancreas are unremarkable. Fatty infiltration of liver. Normal gallbladder. Common bile duct top normal at 6 mm. IMPRESSION: 1. Limited study due to patient body habitus. 2. Negative pancreas within these limitations. Electronically signed by: Toro Singh M.D. 10/08/2016 3:20 PM Dictated Date/Time: 10/08/2016 3:18 PM
--- NOTE | 2016-10-08 16:35 | Anesthesiology Progress Note ---
Anesthesia Progress Note Date of Service October 08, 2016. Progress Notes The patient is a 26 y/o female scheduled for EUS on 10/11/[address] Lai. She was admitted for abdominal pain and N/V and found to have elevated lipase, LFTs , and D-Dimer. The patient had an episode of acute pancreatitis last month and has been found to have fatty liver, a hiatal hernia, as well as esophagitis. Other PMH includes morbid obesity and depression. She tolerated an EGD with no anesthesia problems. Her CXR showed NAD. Her EKG showed sinus tachycardia. A venous ultrasound was negative for DVTs. A pancreatic ultrasound was negative for pancreatitis. Labs are significant for plt 491, bicarb 16, and the elevated D Dimer and LFTs. Her troponin was negative. On exam the patient had a thick neck but good extension. She was a MP 3 airway with intact teeth. Heart was RRR and lungs were clear. Carotids were negative for bruits. The patient is an ASA 3. She was consented to general anesthesia. The patient was counseled to remain NPO after 2300 on 10/10/16.
--- NOTE | 2016-10-08 20:40 | Progress Note ---
Internal Med Progress Note Date of Service: October 08, 2016. Provider Documentation: SUBJECTIVE: continues to have epigastric and RUQ abdominal pain persisted nausea had emesis earlier no fever or chills OBJECTIVE: Vital Signs-as noted below Exam: General-in distress due to abdominal pain Eyes-sclera non icteric Lungs-CTA Heart-regular S1/S2 Abdomen-+ epigastric and RUQ tenderness Extremities-no rash or deformity Neuro-no focal deficit , AAO x3 Lab data as noted below. ASSESSMENT & PLAN: ABDOMINAL PAIN /NAUSEA /VOMITING /POSSIBLE PANCREATITIS : frequent admissions on past few months with similar problem Lipase level was elevated > 3000 in recent admission improved to 1200 on 09/29/16 prior to discharge presented with Lipase level ~600 with worsening of epigastric pain Lipase level continued to be elevated ~800 pancreatic USG -shows normal pancreas Xray of abdomen -negative for obstruction cont IV fluid GI eval requested , pt is known to [facility] GI team form the prior admissions appreciate input for GI HIDA scan ordered to asses for possible gall bladder pathology causing recurrent gallstone pancreatitis may need Surgery eval if HIDA is abnormal pt is schedule to have EUS on Tuesday ' spoke with pt' Father over phone given update SINUS TACHYCARDIA ; HR improved no complain of SOB or hypoxia possible due to pain /discomfort ? CT chest with contrast -negative for PE lower ext Doppler -negative for DVT cont Pain control , IV Fluid monitor in Tele DVT PROPHYLAXIS : moderate to high risk repeated hospital admission Sub q Lovenox DVT PROPHYLAXIS sub q Lovenox DISPOSITION Discharge home when medically stable pt's family given update over phone Vital Signs: Date Time Temp Pulse Resp B/P Pulse Ox O2 Delivery O2 Flow Rate FiO2 10/08/16 19:31 37.1 83 18 146/84 100 Room Air 10/08/16 16:00 Room Air 10/08/16 15:14 37.0 102 18 151/120 98 Room Air 10/08/16 13:00 Room Air 10/08/16 12:08 36.5 90 18 128/69 98 10/08/16 08:03 36.9 90 18 131/69 95 10/08/16 08:00 Room Air 10/08/16 04:43 37.4 109 18 147/91 98 Room Air 10/08/16 04:00 96 Room Air 10/07/16 23:59 96 Room Air 10/07/16 23:55 37.2 125 18 154/97 97 Room Air Lab Results: Results Past 24 Hours Test 10/08/16 06:50 Range/Units Total Bilirubin 1.4 0.2-1 mg/dl Direct Bilirubin 0.3 0-0.2 mg/dl Aspartate Amino Transf (AST/SGOT) 100 15-37 U/L Alanine Aminotransferase (ALT/SGPT) 66 12-78 U/L Alkaline Phosphatase 89 45-117 U/L Total Protein 7.9 6.4-8.2 gm/dl Albumin 3.7 3.4-5.0 gm/dl Lipase 875 73-393 U/L
[2016-10-08] MEDS: ENOXAPARIN 40 MG/0.4 ML SYR SC SCH (21:03)
[2016-10-09] VITALS (7 sets, daily range): BP systolic 119–143; BP diastolic 82–98; PULSE 86–112; TEMP 36.9–37.5; O2SAT 96–100
[2016-10-09] MEDS: LACTATED RINGER'S 1000ML 1,000 ML IV SCH ×5 (02:00→20:52)
[2016-10-09] MEDS: HYDROmorphone INJ 1 MG/ML SYR IV PRN ×5 (03:48→23:02)
[2016-10-09] MEDS: SUCRALFATE 1 GM/10 ML UDC PO SCH ×4 (09:05→20:51)
[2016-10-09] MEDS: FAMOTIDINE IV INJ 20 MG in DEXTROSE 5% 100ML 100 ML IV SCH ×2 (09:05→21:44)
--- NOTE | 2016-10-09 10:28 | PROGRESS NOTE ---
DATE: 10/09/2016 Gastroenterology progress note in cross coverage for [employer]. AGE: 26. SEX: Female. I had the pleasure of seeing Ashly Xie at her bedside today. She states that she is having improved symptoms. She does continue to have abdominal pain in the bilateral upper quadrants rated as 4/10 in intensity, described as a chronic ache, nonradiating with no alleviating or exacerbating factors. She has not had any emesis overnight. Denies any hematemesis, melena or hematochezia. Denies any further complaints throughout the night. REVIEW OF SYSTEMS: Negative x10 system review other than pertinent positives listed in the HPI. PHYSICAL EXAMINATION: VITAL SIGNS: Temp 36.9, pulse 97, respirations 16, blood pressure 119/82 and pulse ox 99% on room air. GENERAL: She is morbidly obese, cooperative and in no acute distress. HEAD: Normocephalic and atraumatic. CHEST: Clear to auscultation bilaterally. CARDIOVASCULAR: Regular rate and rhythm. ABDOMEN: Soft, tender in the bilateral upper quadrants and nondistended. There are positive bowel sounds. EXTREMITIES: No clubbing, cyanosis or edema. LABORATORY STUDIES: From today include; an AST of 136, ALT of 70, alkaline phosphatase 73, total bilirubin 1.2, direct bilirubin 0.3, total protein 6.7, albumin 3.1. IMPRESSION: This is a 26-year-old female, with bilateral upper quadrant abdominal pain, improved with continued lipase elevation. PLAN: The patient is to undergo an EUS on Tuesday. Supportive care until that time including IV fluids and narcotic analgesics. Consider advancing to clear liquids as her pain has improved. Once again, thanks for allowing me to participate in the care of this patient. If any further questions, please do not hesitate in contacting me. MICHELLE
[2016-10-09] MEDS: PROMETHAZINE HCL INJ 25 MG in SODIUM CHLORIDE 0.9% 50ML 50 ML IV PRN ×2 (15:17→19:42)
[2016-10-09] MEDS: ENOXAPARIN 40 MG/0.4 ML SYR SC SCH (20:51)
--- NOTE | 2016-10-09 22:04 | Progress Note ---
Internal Med Progress Note Date of Service: October 09, 2016. Provider Documentation: SUBJECTIVE: abdominal pain has improved no vomiting today evaluated by GI will advance diet to clears scheduled for EUS on Tuesday OBJECTIVE: Vital Signs-as noted below Exam: General-no sign of distress Eyes-sclera non icteric Lungs-CTA Heart-regular S1/S2 Abdomen-+ epigastric and RUQ tenderness Extremities-no rash or deformity Neuro-no focal deficit , AAO x3 Lab data as noted below. ASSESSMENT & PLAN: ABDOMINAL PAIN /NAUSEA /VOMITING /POSSIBLE PANCREATITIS : frequent admissions on past few months with similar problem Lipase level was elevated > 3000 in recent admission improved to 1200 on 09/29/16 prior to discharge presented with Lipase level ~600 with worsening of epigastric pain Lipase level continued to be elevated ~800 -> 1100 pancreatic USG -shows normal pancreas Xray of abdomen -negative for obstruction cont IV fluid GI eval requested , pt is known to [facility] GI team form the prior admissions appreciate input for GI HIDA scan ordered to asses for possible gall bladder pathology causing recurrent gallstone pancreatitis may need Surgery eval if HIDA is abnormal pt is schedule to have EUS on Tuesday ' diet advanced to clears and abdominal pain /Nausea vomiting has improved will be NPO past midnight on Tuesday10/10/16 for EUS on Tuesday10/11/16 SINUS TACHYCARDIA ; HR improved no complain of SOB or hypoxia possible due to pain /discomfort CT chest with contrast -negative for PE lower ext Doppler -negative for DVT cont Pain control , IV Fluid monitor in Tele DVT PROPHYLAXIS : moderate to high risk repeated hospital admission Sub q Lovenox DVT PROPHYLAXIS sub q Lovenox DISPOSITION Discharge home when medically stable Vital Signs: Date Time Temp Pulse Resp B/P Pulse Ox O2 Delivery O2 Flow Rate FiO2 10/09/16 19:32 37.5 100 18 143/96 99 Room Air 10/09/16 16:00 Room Air 10/09/16 15:19 37.3 101 18 141/98 98 Room Air 10/09/16 12:00 Room Air 10/09/16 11:39 37.0 86 16 133/82 98 Room Air 10/09/16 08:00 Room Air 10/09/16 07:43 36.9 97 16 119/82 99 Room Air 10/09/16 04:00 96 Room Air 10/09/16 03:25 37.0 112 16 122/84 99 Room Air 10/08/16 23:59 96 Room Air 10/08/16 23:15 37.3 75 20 115/83 100 Room Air Lab Results: Results Past 24 Hours Test 10/09/16 08:00 Range/Units Total Bilirubin 1.2 0.2-1 mg/dl Direct Bilirubin 0.3 0-0.2 mg/dl Aspartate Amino Transf (AST/SGOT) 136 15-37 U/L Alanine Aminotransferase (ALT/SGPT) 70 12-78 U/L Alkaline Phosphatase 73 45-117 U/L Total Protein 6.7 6.4-8.2 gm/dl Albumin 3.1 3.4-5.0 gm/dl Lipase 1108 73-393 U/L
[2016-10-10] MEDS: LACTATED RINGER'S 1000ML 1,000 ML IV SCH ×5 (02:00→22:45)
[2016-10-10 03:56] VITALS: BP 133/88; PULSE 99; TEMP 37.3; O2SAT 98
[2016-10-10] MEDS: HYDROmorphone INJ 1 MG/ML SYR IV PRN ×5 (04:28→23:16)
[2016-10-10 07:03] VITALS: BP 139/79; PULSE 84; TEMP 37.4; O2SAT 97
[2016-10-10] MEDS: SUCRALFATE 1 GM/10 ML UDC PO SCH ×4 (09:03→20:42)
[2016-10-10] MEDS: FAMOTIDINE IV INJ 20 MG in DEXTROSE 5% 100ML 100 ML IV SCH ×2 (09:03→22:11)
[2016-10-10 11:53] VITALS: BP_SYST 137; BP_SYST 148; BP_DIAS 103; BP_DIAS 87; PULSE 85; TEMP 37.4; O2SAT 99
[2016-10-10] MEDS: PROMETHAZINE HCL INJ 25 MG in SODIUM CHLORIDE 0.9% 50ML 50 ML IV PRN (15:06)
[2016-10-10 15:14] VITALS: BP 138/91; PULSE 82; TEMP 37; O2SAT 97
[2016-10-10 18:52] VITALS: BP 134/86; PULSE 85; TEMP 37.1; O2SAT 99
--- NOTE | 2016-10-10 20:38 | Progress Note ---
Internal Med Progress Note Date of Service: October 10, 2016. Provider Documentation: SUBJECTIVE: mentions of feeling better today abdominal pain has improved somewhat tolerating clears well no complain of nausea, no vomiting Pt will be NPO past midnight for EUS tomorrow AM by GI OBJECTIVE: Vital Signs-as noted below Exam: General-no sign of distress Eyes-sclera non icteric Lungs-CTA Heart-regular S1/S2 Abdomen-+ epigastric and RUQ tenderness Extremities-no rash or deformity Neuro-no focal deficit , AAO x3 Lab data as noted below. ASSESSMENT & PLAN: ABDOMINAL PAIN /NAUSEA /VOMITING /POSSIBLE PANCREATITIS : frequent admissions on past few months with similar problem Lipase level was elevated > 3000 in recent admission improved to 1200 on 09/29/16 prior to discharge presented with Lipase level ~600 with worsening of epigastric pain Lipase level continued to be elevated ~800 -> 1100 -> 1700 pancreatic USG -shows normal pancreas Xray of abdomen -negative for obstruction cont IV fluid GI eval requested , pt is known to [facility] GI team form the prior admissions appreciate input for GI HIDA scan ordered to asses for possible gall bladder pathology causing recurrent gallstone pancreatitis may need Surgery eval if HIDA is abnormal pt is schedule to have EUS on Tuesday ' diet advanced to clears and abdominal pain /Nausea vomiting has improved will be NPO past midnight today for EUS on Tuesday10/11/16 SINUS TACHYCARDIA ; HR improved no complain of SOB or hypoxia possible due to pain /discomfort CT chest with contrast -negative for PE lower ext Doppler -negative for DVT cont Pain control , IV Fluid monitor in Tele DVT PROPHYLAXIS : moderate to high risk repeated hospital admission Sub q Lovenox will hold Sub q Lovenox -in case pt needs GI procedure tomorrow DISPOSITION Discharge home when medically stable Vital Signs: Date Time Temp Pulse Resp B/P Pulse Ox O2 Delivery O2 Flow Rate FiO2 10/10/16 18:52 37.1 85 16 134/86 99 Room Air 10/10/16 16:00 Room Air 10/10/16 15:14 37.0 82 16 138/91 97 Room Air 10/10/16 12:00 Room Air 10/10/16 11:53 37.4 85 16 148/103 99 Room Air 137/87 10/10/16 08:00 Room Air 10/10/16 07:03 37.4 84 22 139/79 97 Room Air 10/10/16 04:00 Room Air 10/10/16 03:56 37.3 99 20 133/88 98 Room Air 10/10/16 00:00 Room Air 10/09/16 23:22 37.4 99 20 139/93 100 Room Air Lab Results: Results Past 24 Hours Test 10/10/16 05:35 Range/Units Total Bilirubin 1.1 0.2-1 mg/dl Direct Bilirubin 0.2 0-0.2 mg/dl Aspartate Amino Transf (AST/SGOT) 119 15-37 U/L Alanine Aminotransferase (ALT/SGPT) 69 12-78 U/L Alkaline Phosphatase 66 45-117 U/L Total Protein 6.4 6.4-8.2 gm/dl Albumin 2.9 3.4-5.0 gm/dl Lipase 1766 73-393 U/L
[2016-10-10 23:55] VITALS: BP 136/84; PULSE 98; TEMP 37.4; O2SAT 97
[2016-10-11] VITALS (13 sets, daily range): BP systolic 112–157; BP diastolic 74–98; PULSE 86–107; TEMP 36.7–37.3; O2SAT 95–100
[2016-10-11] MEDS: LACTATED RINGER'S 1000ML 1,000 ML IV SCH (05:31)
[2016-10-11] MEDS ORDERED: PROPOFOL IV EMULSION 10 MG/ML 20 ML VIAL IV ONE ×3 (06:45→12:08)
[2016-10-11] MEDS ORDERED: LIDOCAINE HCL 2% 2 ML VIAL (20MG/ML) ONE ×2 (06:45→12:08)
[2016-10-11] MEDS ORDERED: FENTANYL CITRATE INJ 50 MCG/1 ML 2 ML VIAL ONE ×2 (06:45→12:09)
[2016-10-11] MEDS ORDERED: MIDAZOLAM HCL 1 MG/ML 2ML VIAL ONE ×2 (06:45→12:08)
--- NOTE | 2016-10-11 07:22 | Progress Note ---
Progress Note Date of Service October 11, 2016. Progress Note Ms. Xie is a 26 yo who has had smoldering pancreatitis for over one month. MRI/ MRCP and CT all have been non revealing. She does use EtoH A and o x 3 lino nad RRR Obese Nabs/soft/nt/nd no edema Plan for Endoscopic ultrasound today to evaluate the parenchyma and r/o divisum as well as rule out mass lesion
--- NOTE | 2016-10-11 07:57 | GI REPORT ---
Procedure Date: 10/11/2016 7:39 AM Procedure: Upper GI endoscopy Indications: Follow-up of reflux esophagitis, Pancreatitis Medicines: General Anesthesia Complications: No immediate complications. Estimated blood loss: None. Estimated Blood Loss: Estimated blood loss: none. Procedure: Pre-Anesthesia Assessment: - Pre-Anesthesia Assessment: - Prior to the procedure, a History and Physical was performed, and patient medications, allergies and sensitivities were reviewed. The patient's tolerance of previous anesthesia was reviewed. Please see [facility] for complete details. - The risks and benefits of the procedure and the sedation options and risks were discussed with the patient. All questions were answered and informed consent was obtained. - Patient identification and proposed procedure were verified prior to the procedure by the physician and the nurse. The procedure was verified in the pre-procedure area in the procedure room. After obtaining informed consent, the endoscope was passed carefully and meticuously under direct vision and only advanced when the lumen was clearly identified, C02 insuflation was utilized throughout the entirity of the procedure. Throughout the procedure, the patient's blood pressure, pulse, and oxygen saturations were monitored continuously. After obtaining informed consent, the endoscope was passed under direct vision. Throughout the procedure, the patient's blood pressure, pulse, and oxygen saturations were monitored continuously.The upper GI endoscopy was accomplished without difficulty. The patient tolerated the procedure well. The Scope was introduced through the mouth, and advanced to the second part of duodenum. Findings: The examined esophagus was normal. The entire examined stomach was normal. The area of the papilla and examined duodenum were normal. Impression: - Normal esophagus. - Normal stomach. - Normal area of the papilla and examined duodenum. - No specimens collected. Recommendation: - [facility]. - Perform an upper endoscopic ultrasound (UEUS) today. Eduar Lai MD 10/11/2016 7:56:20 AM This report has been signed electronically. Note Initiated On: 10/11/2016 7:39 AM I attest to the content of the Intraoperative Record and orders documented therein, exceptions below
[2016-10-11] MEDS ORDERED: GLYCOPYRROLATE INJ 0.2 MG/ML VIAL ONE ×2 (08:06→12:08)
[2016-10-11] MEDS ORDERED: NEOSTIGMINE METHYLSULFATE 5 MG/5 ML SYR ONE ×2 (08:06→12:08)
[2016-10-11] MEDS ORDERED: EpHEDrine SULFATE INJ 50 MG/ML AMP IV PRN ×2 (08:15→13:00)
[2016-10-11] MEDS ORDERED: ATROPINE SULFATE 0.1 MG/ML 5ML SYR IV PRN ×2 (08:15→13:00)
[2016-10-11] MEDS ORDERED: PROMETHAZINE HCL INJ 12.5 MG in SODIUM CHLORIDE 0.9% 50ML 50 ML IV PRN (08:15)
--- NOTE | 2016-10-11 08:19 | [facility] Post Operative Brief Note ---
Immediate Operative Summary Operative Date October 11, 2016. Pre-Operative Diagnosis Pancreatitis Post-Operative Diagnosis Same Procedure(s) Performed Upper Endoscopic Ultrasonography Surgeon Dr Lai Estimated Blood Loss 0ml Findings Normal pancreas Copious amount of sludge and stones in gallbladder Otherwise normal examination Specimens none
--- NOTE | 2016-10-11 08:25 | GI REPORT ---
Procedure Date: 10/11/2016 7:30 AM Procedure: Upper EUS Indications: Acute recurrent pancreatitis Medicines: General Anesthesia Complications: No immediate complications. Estimated Blood Loss: Estimated blood loss: none. Procedure: Pre-Anesthesia Assessment: - Pre-Anesthesia Assessment: - Prior to the procedure, a History and Physical was performed, and patient medications, allergies and sensitivities were reviewed. The patient's tolerance of previous anesthesia was reviewed. Please see [employer] for complete details. - The risks and benefits of the procedure and the sedation options and risks were discussed with the patient. All questions were answered and informed consent was obtained. - Patient identification and proposed procedure were verified prior to the procedure by the physician and the nurse. The procedure was verified in the pre-procedure area in the procedure room. After obtaining informed consent, the endoscope was passed carefully and meticuously under direct vision and only advanced when the lumen was clearly identified, C02 insuflation was utilized throughout the entirity of the procedure. Throughout the procedure, the patient's blood pressure, pulse, and oxygen saturations were monitored continuously. After obtaining informed consent, the endoscope was passed under direct vision. Throughout the procedure, the patient's blood pressure, pulse, and oxygen saturations were monitored continuously. The Endosonoscope was introduced through the mouth, and advanced to the second part of duodenum. The upper EUS was accomplished without difficulty. The patient tolerated the procedure well. The Endosonoscope was introduced through the mouth, and advanced to the second part of duodenum. Findings: Endosonographic Finding : There was no sign of significant endosonographic abnormality in the entire pancreas. The pancreatic duct measured up to 2 mm in diameter. The pancreas was well visualized, no pathologic lymphadenopathy, no masses, no cysts, no calcifications, the pancreatic duct was well visualized from ampulla to tail, the pancreatic duct was thin in caliber, the pancreatic duct was regular in contour. There was no sign of significant endosonographic abnormality in the common bile duct. The maximum diameter of the duct was 4 mm. Extensive hyperechoic material consistent with sludge was visualized endosonographically in the gallbladder body. No lymphadenopathy seen. There was diffuse abnormal echotexture in the left lobe of the liver. This was characterized by a hyperechoic appearance. Normal celiac axis and left adrenal gland Impression: - There was no sign of significant pathology in the entire pancreas. - There was no sign of significant pathology in the common bile duct. - Hyperechoic material consistent with sludge was visualized endosonographically in the gallbladder body. - There was diffuse abnormal echotexture in the left lobe of the liver. This was characterized by a hyperechoic appearance. - No specimens collected. Recommendation: - [facility]. - Advance diet as tolerated. - Consider protective elective cholecystectomy - Genetic work up for pancreatitis Eduar Lai MD 10/11/2016 8:26:20 AM This report has been signed electronically. Note Initiated On: 10/11/2016 7:30 AM I attest to the content of the Intraoperative Record and orders documented therein, exceptions below
[2016-10-11] MEDS ORDERED: SUCCINYLCHOLINE CHLORIDE 20 MG/ML 10 ML VIAL IV ONE (08:35)
[2016-10-11] MEDS ORDERED: ROCURONIUM BROMIDE 10 MG/ML 5 ML VIAL ONE ×4 (08:35→13:16)
--- NOTE | 2016-10-11 08:56 | Anesthesiology Progress Note ---
Anesthesia Post Op Note Date & Time October 11, 2016 at 08:56 Vital Signs Pain Intensity: 0 Vital Signs Past 12 Hours Date Time Temp Pulse Resp B/P Pulse Ox O2 Delivery O2 Flow Rate FiO2 10/11/16 08:45 98 22 137/90 100 Nasal Cannula 3 10/11/16 08:35 89 22 134/106 100 Mask 6 10/11/16 08:26 36.2 96 22 144/101 100 Mask 10 10/11/16 04:00 Room Air 10/11/16 03:47 37.1 86 18 138/95 97 Room Air 10/11/16 00:00 Room Air 10/10/16 23:55 37.4 98 19 136/84 97 Room Air Notes Mental Status: alert / awake / arousable, participated in evaluation Pt Amnestic to Procedure: Yes Nausea / Vomiting: adequately controlled Pain: adequately controlled Airway Patency, RR, SpO2: stable & adequate BP & HR: stable & adequate Hydration State: stable & adequate Anesthetic Complications: no major complications apparent
[2016-10-11] MEDS: SUCRALFATE 1 GM/10 ML UDC PO SCH ×4 (09:00→19:43)
[2016-10-11] MEDS: HYDROmorphone INJ 1 MG/ML SYR IV PRN ×3 (09:37→21:12)
--- NOTE | 2016-10-11 10:10 | Progress Note ---
Progress Note Date of Service October 11, 2016. Progress Note ATTENDING NOTE: pt had EUS today : Impression : - There was no sign of significant pathology in the entire pancreas. - There was no sign of significant pathology in the common bile duct. - Hyperechoic material consistent with sludge was visualized endosonographically in the gallbladder body. - There was diffuse abnormal echotexture in the left lobe of the liver. This was characterized by a hyperechoic appearance. Gallstone disease causing recurrent pancreatitis Lipase level 1766-> 2398 afebrile , vitals remains stable will need Cholecystectomy patient is low risk for laparoscopic cholecystectomy Consult requested for General Surgery Case Discussed briefly with Dr Perrin pt will be kept NPO Sub q Lovenox 40 mg daily been on hold since yesterday last dose was on 10/09/16 at 2000 patient updated
--- NOTE | 2016-10-11 10:40 | Surgery Consultation ---
Consultation Date of Consultation: October 11, 2016. Attending Physician: Lacy Muñoz M.D. History of Present Illness Source: patient, hospital records This is a 22 year old female with PMH of acute pancreatitis, h/o esophagitis/ gastritis, fatty liver, uterine fibroid, who presents to the ED with abdominal pain with N/V. Patient was recently admitted in August 2016 for epigastric pain, mildly elevated LT likely secondary to fatty liver. Had gallbladder US showing no gallstones, hepatomegaly and severe hepatic stenosis, MRCP which showed fatty liver, EGD which showed LA grade B esophagitis. She was then admitted September 24-2016 for acute [address]. [address] abdomen showed unremarkable pancreas, hepatomegaly, hepatic steatosis. RUQ US showed no acute GB findings. Patient was seen by GI and planned for outpatient EUS 4 weeks after discharge. Pt was treated with Cipro for possible UTI with resolution of urinary symptoms. She was sent home on ranitidine and sucralfate and was eating normally and feeling better up until this morning. Since this am has nausea with approx 10 episodes of vomiting. She received Phenergan in ER but still felt nauseous and vomited while I was in the room. She reports associated dull diffuse abdominal pain rated 9/10. She states it feels the same as prior episode of pancreatitis. She has been tachycardic in the ER with rates as high as 160's and now running 120s. BP has been elevated. She received IVF's in the ER. Feels a little dizzy. No fever, chills, cough, SOB, chest pain, palpitations, diarrhea, constipation, hematochezia, melena, urinary symptoms. I got a call for consult cholecystectomy, I reviewed pt's H/P with pt, pt is still have some RUQ pain, with nausea, no vomiting, pt denies fever, no diarrhea , pt has been in ER 3 times because of her RUQ pain, pt requests to do cholecystectomy. Past Medical/Surgical History Medical Problems: (1) Dehydration Status: Acute (2) Gastritis Status: Chronic (3) Intractable abdominal pain Status: Acute (4) Pancreatic mass Status: Acute (5) Pancreatitis Status: Acute (6) Pancreatitis Status: Acute Surgical Problems: (1) History of esophagogastroduodenoscopy (EGD) Permanent Comment: 09/01/16- - LA Grade B reflux esophagitis Status: Chronic Family History Diabetes mellitus Heart disease Hypertension Kidney disease Kidney stones Social History Smoking Status: Never Smoker Alcohol Use: none (prior social drinker, however no recnet etoh intake since recent bouts of pancreatitis) Drug Use: none Marital Status: single Housing Status: lives alone 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 Allergies Coded Allergies: Ondansetron (Verified Allergy, Unknown, lip tingling, 10/11/16) Morphine (Verified Adverse Reaction, Intermediate, ITCHINESS, 10/11/16) Home Medications Scheduled Cholecalciferol (Vitamin D), Unknown Dose PO DAILY Cyanocobalamin (B12), 1 TAB PO DAILY Multivitamin (Multivitamin), 1 TAB PO DAILY Norethindrone Acetate (Norethindrone Acetate), 5 MG PO DAILY Probiotic Product (Probiotic), 1 CAP PO DAILY Ranitidine HCl (Ranitidine HCl), 150 MG PO BID Sucralfate (Sucralfate), 1 GM PO BID Current Inpatient Medications Current Inpatient Medications Medications (Trade) Dose Ordered Sig/Marlin Route Start Time Stop Time Status Last Admin Dose Admin Promethazine HCl/ Sodium Chloride (Phenergan Inj/ Nss 50ml) 51 ml @ 204 mls/hr Q6H PRN IV 10/07/16 17:30 11/06/16 17:29 10/10/16 15:06 204 MLS/HR Miscellaneous (Iv Fluids Completed) 1 ea PRN PRN N/A 10/07/16 18:45 10/07/17 18:44 Ioversol (Optiray 320) 100 ml UD PRN IV 10/07/16 19:00 10/11/16 18:59 Al Hydrox/Mg Hydrox/Simethicone (Maalox Max Susp) 15 ml Q6H PRN PO 10/07/16 21:45 11/06/16 21:44 Sucralfate 1 gm 1 gm QID PO 10/07/16 21:45 11/06/16 21:44 10/10/16 20:42 1 GM Famotidine/ Dextrose (Pepcid IV Inj/ D5 100ml) 102 ml @ 200 mls/hr Q12H IV 10/07/16 22:15 11/06/16 22:14 10/10/16 22:11 200 MLS/HR Hydromorphone HCl 0.5 mg 0.5 mg Q4H PRN IV 10/07/16 23:00 10/21/16 22:59 10/11/16 09:37 0.5 MG Lactated Ringer's 1,000 ml @ 150 mls/hr Q6H40M IV 10/08/16 10:30 11/07/16 10:29 10/11/16 05:31 150 MLS/HR Promethazine HCl/ Sodium Chloride (Phenergan Inj/ Nss 50ml) 50.5 ml @ 202 mls/hr ONE PRN IV 10/11/16 08:15 10/11/16 13:15 Ephedrine Sulfate (EpHEDrine SULFATE INJ) 5 mg Q5M PRN IV 10/11/16 08:15 10/11/16 13:15 Atropine Sulfate (Atropine Sulfate 0.1MG/Ml Inj) 0.5 mg Q1M PRN IV 10/11/16 08:15 10/11/16 13:15 Review of Systems Constitutional: No chills, No fatigue, No fever, No problem reported, No sweats , No weakness, No weight loss Eyes: No diplopia, No discharge, No eye pain, No problem reported, No redness, No worsening of vision ENT: No dental problems, No hearing loss, No nasal symptoms, No problem reported, No sore throat, No tinnitus, No trouble swallowing, No unusual epistaxis Respiratory: No cough, No dyspnea at rest, No dyspnea on exertion, No hemoptysis, No problem reported, No shortness of breath, No sputum, No wheezing Cardiovascular: No PND, No chest pain, No claudication, No edema, No orthopnea , No palpitations, No problem reported Abdomen: + nausea, + pain Genitourinary - Female: No dysmenorrhea, No dysuria, No hematuria, No menorrhagia, No metrorrhagia, No , No problem reported, No rash, No urinary frequency, No urinary incontinence, No urinary retention, No urinary urgency, No vaginal bleeding, No vaginal discharge, No vaginal itching, No vulvodynia Neurologic: No balance problems, No memory loss, No numbness/tingling, No paralysis, No problem reported, No vertigo, No weakness Psychiatric: No anhedonism, No anxiety, No depression symptoms, No insomnia, No problem reported, No substance abuse Endocrine: No excessive thirst, No excessive urination, No fatigue, No problem reported Hematologic / Lymphatic: No abnormal bleeding/bruising, No clotting problems, No night sweats, No problem reported, No swollen lymph nodes Physical Exam Date Time Temp Pulse Resp B/P Pulse Ox O2 Delivery O2 Flow Rate FiO2 10/11/16 08:55 36.3 91 22 148/98 98 Room Air 10/11/16 08:45 98 22 137/90 100 Nasal Cannula 3 10/11/16 08:35 89 22 134/106 100 Mask 6 10/11/16 08:26 36.2 96 22 144/101 100 Mask 10 10/11/16 04:00 Room Air 10/11/16 03:47 37.1 86 18 138/95 97 Room Air 10/11/16 00:00 Room Air 10/10/16 23:55 37.4 98 19 136/84 97 Room Air 10/10/16 20:00 Room Air 10/10/16 18:52 37.1 85 16 134/86 99 Room Air 10/10/16 16:00 Room Air 10/10/16 15:14 37.0 82 16 138/91 97 Room Air 10/10/16 12:00 Room Air 10/10/16 11:53 37.4 85 16 148/103 99 Room Air 137/87 General Appearance: WD/WN, no apparent distress Head: normocephalic Eyes: normal inspection ENT: normal ENT inspection Neck: supple, no JVD Respiratory/Chest: chest non-tender, lungs clear Cardiovascular: regular rate, rhythm, no edema, no gallop, no JVD Abdomen/GI: normal bowel sounds, non tender, soft, + tenderness Extremities/Musculoskelatal: normal inspection, no calf tenderness, normal capillary refill Neurologic/Psych: no motor/sensory deficits, alert, normal mood/affect Skin: normal color, warm/dry Laboratory Results Last 24 Hours Test 10/11/16 05:10 Total Bilirubin 0.6 mg/dl Direct Bilirubin 0.2 mg/dl Aspartate Amino Transf (AST/SGOT) 100 U/L Alanine Aminotransferase (ALT/SGPT) 73 U/L Alkaline Phosphatase 65 U/L Total Protein 6.3 gm/dl Albumin 2.9 gm/dl Lipase 2398 U/L Assessment & Plan DICTATED BY: Eduar Lai MD Procedure Date: 10/11/2016 7:30 AM Procedure: Upper EUS Indications: Acute recurrent pancreatitis Medicines: General Anesthesia Complications: No immediate complications. Estimated Blood Loss: Estimated blood loss: none. Procedure: Pre-Anesthesia Assessment: - Pre-Anesthesia Assessment: - Prior to the procedure, a History and Physical was performed, and patient medications, allergies and sensitivities were reviewed. The patient's tolerance of previous anesthesia was reviewed. Please see [employer] for complete details. - The risks and benefits of the procedure and the sedation options and risks were discussed with the patient. All questions were answered and informed consent was obtained. - Patient identification and proposed procedure were verified prior to the procedure by the physician and the nurse. The procedure was verified in the pre-procedure area in the procedure room. After obtaining informed consent, the endoscope was passed carefully and meticuously under direct vision and only advanced when the lumen was clearly identified, C02 insuflation was utilized throughout the entirity of the procedure. Throughout the procedure, the patient's blood pressure, pulse, and oxygen saturations were monitored continuously. After obtaining informed consent, the endoscope was passed under direct vision. Throughout the procedure, the patient's blood pressure, pulse, and oxygen saturations were monitored continuously. The Endosonoscope was introduced through the mouth, and advanced to the second part of duodenum. The upper EUS was accomplished without difficulty. The patient tolerated the procedure well. The Endosonoscope was introduced through the mouth, and advanced to the second part of duodenum. Findings: Endosonographic Finding : There was no sign of significant endosonographic abnormality in the entire pancreas. The pancreatic duct measured up to 2 mm in diameter. The pancreas was well visualized, no pathologic lymphadenopathy, no masses, no cysts, no calcifications, the pancreatic duct was well visualized from ampulla to tail, the pancreatic duct was thin in caliber, the pancreatic duct was regular in contour. There was no sign of significant endosonographic abnormality in the common bile duct. The maximum diameter of the duct was 4 mm. Extensive hyperechoic material consistent with sludge was visualized endosonographically in the gallbladder body. No lymphadenopathy seen. There was diffuse abnormal echotexture in the left lobe of the liver. This was characterized by a hyperechoic appearance. Normal celiac axis and left adrenal gland Impression: - There was no sign of significant pathology in the entire pancreas. - There was no sign of significant pathology in the common bile duct. - Hyperechoic material consistent with sludge was visualized endosonographically in the gallbladder body. - There was diffuse abnormal echotexture in the left lobe of the liver. This was characterized by a hyperechoic appearance. - No specimens collected. Recommendation: - Return patient to [facility] for [facility] care. - Advance diet as tolerated. - Consider protective elective cholecystectomy - Genetic work up for pancreatitis IMP: gallbladder sludge Plan: pt will have laparoscopic cholecystectomy possible open or cholangiogram, D/W benefits, risks and alternatives of the procedure, the risks=- infection, bledding, injury CBD, bowel, incisional hernia, may need ERCP, biliary leak, , pt understood, she agrees with [facility] plan, I answered all questions,
[2016-10-11] MEDS: FAMOTIDINE IV INJ 20 MG in DEXTROSE 5% 100ML 100 ML IV SCH ×2 (11:18→22:33)
[2016-10-11] MEDS ORDERED: DEXAMETHASONE SOD INJ 4 MG/ML VIAL ONE (12:08)
--- NOTE | 2016-10-11 12:35 | History & Physical Bridge Note ---
H&P Re-Evaluation Bridge Note: I have examined the patient, reviewed the History & Physical and in the interval since the performance of the History & Physical I have noted the following changes of clinical significance: I called pt's Mom about the benefits , risks and alternatives of laparoscopic cholecystectomy, she agrees with the procedure, she gave consent on the phone,
[2016-10-11] MEDS ORDERED: CEFAZOLIN IV 3,000 MG/65 ML D5W IV ONE (12:37)
[2016-10-11] MEDS ORDERED: BACITRACIN OINT 15 GM TUBE ONE (12:37)
[2016-10-11] MEDS ORDERED: LIDOCAINE HCL 1% 20 ML VIAL ONE (12:37)
[2016-10-11] MEDS ORDERED: CONRAY 60% 50 ML VIAL ONE (12:37)
[2016-10-11] MEDS ORDERED: BUPIVACAINE 0.5 % 5 MG/1 ML MPF 30ML VIAL ONE (12:37)
[2016-10-11] MEDS ORDERED: HYDROmorphone INJ 1 MG/ML SYR IV PRN (13:00)
[2016-10-11] MEDS ORDERED: PROMETHAZINE HCL INJ 6.25 MG in SODIUM CHLORIDE 0.9% 50ML 50 ML IV PRN (13:00)
[2016-10-11] MEDS ORDERED: METOPROLOL TARTRATE 1 MG/ML VIAL ONE (13:16)
[2016-10-11] MEDS ORDERED: ESMOLOL HCL 10 MG/ML 10 ML VIAL ONE (13:16)
[2016-10-11] MEDS ORDERED: PHENYLEPHRINE 100MCG/ML 5ML SYR ONE (13:28)
--- NOTE | 2016-10-11 14:27 | [facility] Post Operative Brief Note ---
Immediate Operative Summary Operative Date October 11, 2016. Pre-Operative Diagnosis Gall bladder sludge, chronic cholecystitis Post-Operative Diagnosis gallbladder sludge, Chronic Cholecystitis Procedure(s) Performed Laparoscopic Cholecystectomy Surgeon Dr. Perrin Stress Engineer Surgeon(s) Nati Lin PA-C and MICHELL Elmore Estimated Blood Loss 10 cc Findings chronic cholecystitis Fluids (cc crystalloids) 1000ml Specimens A: Gall Bladder and contents Drains none Anesthesia general Complication(s) None Disposition Recovery Room / PACU
[2016-10-11] MEDS ORDERED: ACETAMINOPHEN 325 MG TAB PO PRN (14:30)
[2016-10-11] MEDS: FENTANYL CITRATE INJ 50 MCG/1 ML 2 ML VIAL IV PRN ×2 (14:50→14:55)
[2016-10-11] MEDS: D5W AND 1/2NSS + 20MEQ KCL 1,000 ML IV SCH (16:36)
--- NOTE | 2016-10-11 19:43 | Progress Note ---
Internal Med Progress Note Date of Service: October 11, 2016. Provider Documentation: SUBJECTIVE: pt had EUS earlier today shows gallstone and gall bladder sludge , normal pancreas Surgery consulted, s/p laparoscopic cholecystectomy today feeling much better post op no nausea , tolerating clears well , requests to advance diet OBJECTIVE: Vital Signs-as noted below Exam: General-no sign of distress Eyes-sclera non icteric Lungs-CTA Heart-regular S1/S2 Abdomen-+s/p laparoscopic cholecystectomy , dressing present, no bleeding or swelling Extremities-no rash or deformity Neuro-no focal deficit , AAO x3 Lab data as noted below. ASSESSMENT & PLAN: ABDOMINAL PAIN /NAUSEA /VOMITING /GALL STONE PANCREATITIS due to gall stone pancreatitis EUS shows numerous gall stone and sludge surgery consulted s/p laparoscopic cholecystectomy today recovering well post op frequent admissions on past few months with similar problem Lipase level was elevated > 3000 in recent admission improved to 1200 on 09/29/16 prior to discharge presented with Lipase level ~600 with worsening of epigastric pain Lipase level continued to be elevated ~800 -> 1100 -> 1700 pancreatic USG -shows normal pancreas Xray of abdomen -negative for obstruction GI eval requested , pt is known to [facility] GI team form the prior admissions appreciate input for GI SINUS TACHYCARDIA ; HR improved no complain of SOB or hypoxia possible due to pain /discomfort CT chest with contrast -negative for PE lower ext Doppler -negative for DVT cont Pain control , IV Fluid monitor in Tele DVT PROPHYLAXIS : moderate to high risk repeated hospital admission Lovenox on hold for GI /surgical procedure pt is encouraged to ambulate DISPOSITION Discharge home when medically stable Vital Signs: Date Time Temp Pulse Resp B/P Pulse Ox O2 Delivery O2 Flow Rate FiO2 10/11/16 19:23 36.7 107 18 141/98 98 Room Air 10/11/16 18:19 37.1 86 20 144/96 98 Room Air 10/11/16 17:19 36.8 99 22 112/74 98 Room Air 10/11/16 16:19 36.7 88 22 157/96 98 Room Air 10/11/16 16:00 96 Room Air 10/11/16 15:49 36.8 91 22 135/79 100 Room Air 10/11/16 15:37 37.2 92 18 137/86 100 Room Air 10/11/16 15:15 87 16 130/75 100 Nasal Cannula 3 10/11/16 15:10 36.4 86 16 137/86 100 Nasal Cannula 3 10/11/16 15:00 86 16 134/77 100 Mask 6 10/11/16 14:50 90 16 136/89 100 Mask 10 10/11/16 14:43 36.4 88 16 134/83 100 Mask 10 10/11/16 12:00 95 Room Air 10/11/16 12:00 36.9 92 18 127/84 95 Room Air 10/11/16 11:50 36.9 92 18 127/84 97 Room Air 10/11/16 09:15 37.2 91 19 134/88 100 Room Air 10/11/16 08:55 36.3 91 22 148/98 98 Room Air 10/11/16 08:45 98 22 137/90 100 Nasal Cannula 3 10/11/16 08:35 89 22 134/106 100 Mask 6 10/11/16 08:26 36.2 96 22 144/101 100 Mask 10 10/11/16 08:00 97 Room Air 10/11/16 04:00 Room Air 10/11/16 03:47 37.1 86 18 138/95 97 Room Air 10/11/16 00:00 Room Air 10/10/16 23:55 37.4 98 19 136/84 97 Room Air Lab Results: Results Past 24 Hours Test 10/11/16 05:10 Range/Units Total Bilirubin 0.6 0.2-1 mg/dl Direct Bilirubin 0.2 0-0.2 mg/dl Aspartate Amino Transf (AST/SGOT) 100 15-37 U/L Alanine Aminotransferase (ALT/SGPT) 73 12-78 U/L Alkaline Phosphatase 65 45-117 U/L Total Protein 6.3 6.4-8.2 gm/dl Albumin 2.9 3.4-5.0 gm/dl Lipase 2398 73-393 U/L
[2016-10-11] MEDS: OXYCODONE/ACETAMINOPHEN 5-325 TAB PO PRN (19:44)
[2016-10-12] MEDS: OXYCODONE/ACETAMINOPHEN 5-325 TAB PO PRN ×2 (00:25→22:41)
--- NOTE | 2016-10-12 00:45 | OPERATIVE REPORT ---
DATE OF OPERATION: 10/11/2016 PREOPERATIVE DIAGNOSES: Gallbladder sludge, chronic cholecystitis and cholelithiasis. POSTOPERATIVE DIAGNOSES: Same. OPERATION: Laparoscopic cholecystectomy. SURGEON: Kristy Perrin MD VIDEO GAME ENGINEER: Nati Michaels PA-C ANESTHESIA: General. ESTIMATED BLOOD LOSS: About 10 mL. IV FLUIDS: 1000 mL. FINDINGS: Chronic cholecystitis. COMPLICATIONS: None. INDICATIONS FOR THE PROCEDURE: This is a 26-year-old female, who presented to the ED for 4 days history of right upper quadrant pain and the patient had an endo ultrasound showing gallbladder sludge and patient will be required to do a laparoscopic cholecystectomy, possible open, possible cholangiogram. I did talk to the patient about the benefits, risks and alternate procedure. I indicated the risks may include but not limited such as bleeding, infection, injury to common bile duct, injury to bowel, may need ERCP, incisional hernia and even . The patient understands. She signed informed consent and I answered all questions. However, I also talked to the patient's mom on the phone about the benefits, risks and alternate of the procedure. The patient's mom understands and she agreed to proceed with the procedure. DETAILS OF THE PROCEDURE: The patient was taken to the OR and put the patient in the supine position. The patient received SCDs on bilateral legs to prevent DVT. Also, the patient received 2 grams Ancef IV for prophylactic antibiotic. The patient received general anesthesia without difficulty. The abdomen was prepped and draped in routine sterile fashion. After timeout, I injected the local anesthesia by using 1% lidocaine mixed with 0.25% Marcaine just above umbilicus. I made a small incision just above umbilicus, opened fascia and opened peritoneum under direct vision. I put a Nichelle trocar in, connected to CO2 to create pneumoperitoneum. Flow rate is 6 liter per minute. Pressure is not more than 14 mmHg. Once we got a nice pneumoperitoneum, we put a 10 mm camera in to look around the abdomen; shows no more findings in the stomach, small bowel, large bowel and the liver; however, the omentum covering the gallbladder shows chronic cholecystitis with some adhesion on the gallbladder. Then, we put another 3.5 mm trocar on the right upper quadrant. Once all trocars were in, I put a grasper in to hold the base of the gallbladder, put direction to the diaphragm; however, there was some omental adhesion to the gallbladder. Then I used Bovie to take down the adhesions and then put another grasper in to hold the pouch over the gallbladder, put latter direction to expose the triangle of Calot. The cystic duct was identified and mobilized. Then I put two 5 mm metal clips on the proximal cystic duct; one on the distal cystic duct, then I used a scissor to transect the cystic duct. Then the cystic artery was identified and mobilized. I put two 5 mm metal clips on the proximal cystic artery and one on the distal cystic artery. Then I used a scissor to transect the cystic artery. Rechecked, no active bleeding and no bile leak. Then I used Bovie to take down the gallbladder through the liver bed without difficulty. Rechecked, no active bleeding and no bile leak. Then we removed the gallbladder through the catch bag. Then we reinserted Nichelle trocar in, created pneumoperitoneum again and looked around the abdomen. No active bleeding, no bile leak from the liver bed and no injury to the bowel. We removed all trocars under direct vision. No active bleeding. Then, the pneumoperitoneum was released. Then we closed the umbilical incision fascial layer by using #1 Vicryl [id number] x2, closed the subcutaneous layer by using 2-0 Vicryl and closed skin by using 4-0 Vicryl. Then we closed another 3.5 mm trocar site skin only by using 4-0 Vicryl. All the instrument, needle and sponge count were correct x2 at the end of case. The specimen was sent to pathology. The patient tolerated the procedure well. After the procedure, the patient was transferred to recovery room in stable condition. I attest to the content of the Intraoperative Record and any orders documented therein. Any exceptions are noted below. MICHELLE
[2016-10-12] MEDS: HYDROmorphone INJ 1 MG/ML SYR IV PRN ×5 (01:31→17:25)
[2016-10-12] MEDS: D5W AND 1/2NSS + 20MEQ KCL 1,000 ML IV SCH ×2 (03:05→18:26)
[2016-10-12 04:00] VITALS: BP 131/87; PULSE 72; TEMP 36.8; O2SAT 94
[2016-10-12] MEDS ORDERED: CEFAZOLIN IV 3,000 MG/65 ML D5W IV ONE (06:00)
[2016-10-12 07:34] LABS: BASO % 0.1 %; BASO ABS # 0.01 K/uL (0-0.2); COMPLETE YES; EOS % 0.1 %; HEMATOCRIT 34.3 % (37-47); IG% 0.4 %; LYMPH % 14.3 %; LYMPH ABS # 1.32 K/uL (1.2-3.4); MEAN CELL VOLUME 81.5 fL (80-100); MEAN CORPUSCULAR HEMOGLOBIN 26.1 pg (25-34); MEAN CORPUSCULAR HGB CONC 32.1 g/dl (32-36); MEAN PLATELET VOLUME 10.8 fL (7.4-10.4); MONO % 6.6 %; NEUT % 78.5 %; PLATELET COUNT 248 K/uL (130-400); RED BLOOD COUNT 4.21 M/uL (4.2-5.4); WHITE BLOOD COUNT 9.21 K/uL (4.8-10.8)
--- NOTE | 2016-10-12 08:03 | Anesthesiology Progress Note ---
Anesthesia Post Op Note Date & Time October 12, 2016 at 08:03 Vital Signs Pain Intensity: 8.0 Vital Signs Past 12 Hours Date Time Temp Pulse Resp B/P Pulse Ox O2 Delivery O2 Flow Rate FiO2 10/12/16 04:00 36.8 72 18 131/87 94 Room Air 10/12/16 04:00 Room Air 10/12/16 00:00 Room Air 10/11/16 23:52 37.3 106 17 121/91 97 Room Air Notes Mental Status: alert / awake / arousable, participated in evaluation Pt Amnestic to Procedure: Yes Nausea / Vomiting: adequately controlled Pain: adequately controlled Airway Patency, RR, SpO2: stable & adequate BP & HR: stable & adequate Hydration State: stable & adequate Anesthetic Complications: no major complications apparent
[2016-10-12 08:07] VITALS: BP 139/97; PULSE 79; TEMP 36.8; O2SAT 96
--- NOTE | 2016-10-12 08:10 | Progress Note ---
Progress Note Date of Service October 12, 2016. Progress Note Pt was seen and evaluated this am s/p EUS and lap cholecystectomy. She is feeling well. Complains off irritation and mild pain at incision sites, no other complaints. Tolerated a regular diet this AM. Had a BM this AM. No fever, chills, chest pain, SOB, black/bloody stools. PE: no acute distress, lungs CTA, heart regular in rate and rhythm, + BS x 4. Follow up as outpatient. GI to sign off. No GI contraindication to discharge.
[2016-10-12 08:15] LABS: ALB/GLOB RATIO 0.8 (0.9-2); BUN/CREATININE RATIO 2.6 (10-20); CREATININE 0.65 mg/dl (0.60-1.20); POTASSIUM 3.3 mmol/L (3.5-5.1)
[2016-10-12] MEDS: SUCRALFATE 1 GM/10 ML UDC PO SCH ×4 (08:23→22:13)
[2016-10-12 08:26] LABS: CALCIUM 8.4 mg/dl (8.5-10.1)
--- NOTE | 2016-10-12 09:39 | Progress Note ---
Subjective Date of Service: October 12, 2016. Subjective Pt evaluation today including: conversation w/ patient, physical exam, lab review, review of studies, review of inpatient medication list Saw/examined the patient in room 218 Doing well after her cholecystectomy some pain at the site of surgery, but the pain around the epigastric region has improved Tolerated regular breakfast Bowel movement on 10/11 Problem List Medical Problems: (1) Dehydration Status: Acute (2) Gastritis Status: Chronic (3) Intractable abdominal pain Status: Acute (4) Pancreatic mass Status: Acute (5) Pancreatitis Status: Acute (6) Pancreatitis Status: Acute Surgical Problems: (1) History of esophagogastroduodenoscopy (EGD) Permanent Comment: 09/01/16- - LA Grade B reflux esophagitis Status: Chronic Review of Systems Constitutional: No chills, No fever, No weakness Respiratory: No dyspnea at rest, No dyspnea on exertion, No hemoptysis, No shortness of breath, No wheezing Cardiac: No chest pain, No edema, No palpitations Abdomen: + pain, No GI bleeding, No constipation, No diarrhea, No nausea, No vomiting Medications Current Inpatient Medications Medications (Trade) Dose Ordered Sig/Marlin Route Start Time Stop Time Status Last Admin Dose Admin Promethazine HCl/ Sodium Chloride (Phenergan Inj/ Nss 50ml) 51 ml @ 204 mls/hr Q6H PRN IV 10/07/16 17:30 11/06/16 17:29 10/10/16 15:06 204 MLS/HR Miscellaneous (Iv Fluids Completed) 1 ea PRN PRN N/A 10/07/16 18:45 10/07/17 18:44 Al Hydrox/Mg Hydrox/Simethicone (Maalox Max Susp) 15 ml Q6H PRN PO 10/07/16 21:45 11/06/16 21:44 Sucralfate 1 gm 1 gm QID PO 10/07/16 21:45 11/06/16 21:44 10/12/16 08:23 1 GM Famotidine/ Dextrose (Pepcid IV Inj/ D5 100ml) 102 ml @ 200 mls/hr Q12H IV 10/07/16 22:15 11/06/16 22:14 10/11/16 22:33 200 MLS/HR Hydromorphone HCl 0.5 mg 0.5 mg Q4H PRN IV 10/07/16 23:00 10/21/16 22:59 10/11/16 21:12 0.5 MG Potassium Chloride/Dextrose/ Sod Cl (D5W And 1/2nss + 20meq KCl) 1,000 ml @ 80 mls/hr [id number] IV 10/11/16 15:00 11/10/16 14:59 10/12/16 03:05 80 MLS/HR Acetaminophen (Tylenol Tab) 650 mg Q6H PRN PO 10/11/16 14:30 11/10/16 14:29 Oxycodone/ Acetaminophen (Percocet 5-325mg Tab) 1 tab Q4H PRN PO 10/11/16 14:30 10/25/16 14:29 10/12/16 00:25 1 TAB Hydromorphone HCl (Dilaudid Inj) 1 mg Q3H PRN IV 10/11/16 14:30 10/25/16 14:29 10/12/16 08:23 1 MG Potassium Chloride (Klor-Con Tab) 20 meq 1000 ONCE PO 10/12/16 10:00 10/12/16 10:01 Objective Vital Signs Date Time Temp Pulse Resp B/P Pulse Ox O2 Delivery O2 Flow Rate FiO2 10/12/16 08:07 36.8 79 18 139/97 96 10/12/16 08:00 Room Air 10/12/16 04:00 36.8 72 18 131/87 94 Room Air 10/12/16 04:00 Room Air 10/12/16 00:00 Room Air 10/11/16 23:52 37.3 106 17 121/91 97 Room Air 10/11/16 20:00 Room Air 10/11/16 19:23 36.7 107 18 141/98 98 Room Air 10/11/16 18:19 37.1 86 20 144/96 98 Room Air 10/11/16 17:19 36.8 99 22 112/74 98 Room Air 10/11/16 16:19 36.7 88 22 157/96 98 Room Air 10/11/16 16:00 96 Room Air 10/11/16 15:49 36.8 91 22 135/79 100 Room Air 10/11/16 15:37 37.2 92 18 137/86 100 Room Air 10/11/16 15:15 87 16 130/75 100 Nasal Cannula 3 10/11/16 15:10 36.4 86 16 137/86 100 Nasal Cannula 3 10/11/16 15:00 86 16 134/77 100 Mask 6 10/11/16 14:50 90 16 136/89 100 Mask 10 10/11/16 14:43 36.4 88 16 134/83 100 Mask 10 10/11/16 12:00 95 Room Air 10/11/16 12:00 36.9 92 18 127/84 95 Room Air 10/11/16 11:50 36.9 92 18 127/84 97 Room Air Physical Exam General Appearance: no apparent distress, + obese Respiratory/Chest: chest non-tender, lungs clear, normal breath sounds, no respiratory distress, no accessory muscle use Cardiovascular: regular rate, rhythm, no edema, no murmur Abdomen: normal bowel sounds, soft, + tenderness (mild tenderness to palpation) Extremities: normal inspection, no pedal edema Laboratory Results Last 24 Hours Test 10/12/16 07:02 White Blood Count 9.21 K/uL Red Blood Count 4.21 M/uL Hemoglobin 11.0 g/dL Hematocrit 34.3 % Mean Corpuscular Volume 81.5 fL Mean Corpuscular Hemoglobin 26.1 pg Mean Corpuscular Hemoglobin Concent 32.1 g/dl Platelet Count 248 K/uL Mean Platelet Volume 10.8 fL Neutrophils (%) (Auto) 78.5 % Lymphocytes (%) (Auto) 14.3 % Monocytes (%) (Auto) 6.6 % Eosinophils (%) (Auto) 0.1 % Basophils (%) (Auto) 0.1 % Neutrophils # (Auto) 7.22 K/uL Lymphocytes # (Auto) 1.32 K/uL Monocytes # (Auto) 0.61 K/uL Eosinophils # (Auto) 0.01 K/uL Basophils # (Auto) 0.01 K/uL RDW Standard Deviation 58.2 fL RDW Coefficient of Variation 19.6 % Immature Granulocyte % (Auto) 0.4 % Immature Granulocyte # (Auto) 0.04 K/uL Sodium Level 138 mmol/L Potassium Level 3.3 mmol/L Chloride Level 103 mmol/L Carbon Dioxide Level 29 mmol/L Anion Gap 6.0 mmol/L Blood Urea Nitrogen 2 mg/dl Creatinine 0.65 mg/dl Est Creatinine Clear Calc Drug Dose 187.1 ml/min Estimated GFR () 140.0 Estimated GFR (Non- 120.8 BUN/Creatinine Ratio 2.6 Random Glucose 129 mg/dl Calcium Level 8.4 mg/dl Total Bilirubin 0.4 mg/dl Direct Bilirubin 0.1 mg/dl Aspartate Amino Transf (AST/SGOT) 68 U/L Alanine Aminotransferase (ALT/SGPT) 67 U/L Alkaline Phosphatase 58 U/L Total Protein 6.4 gm/dl Albumin 2.9 gm/dl Globulin 3.5 gm/dl Albumin/Globulin Ratio 0.8 Lipase 722 U/L Assessment and Plan This is a 26 year old female with a PMH of obesity, uterine fibroid, recurrent pancreatitis, esophagitis/gastritis, fatty liver - presents with recurrent pancreatitis Recurrent Gallstone Pancreatitis patient presented with elevated lipase, and mildly elevated LFTs EUS performed showing gallbladder sludge appreciate GI input general surgery consulted as well, appreciate management; s/p lap carley on 10/11 patient's epigastric pain has improved some residual pain at site of surgery tolerated PO intake (regular breakfast) further management as per general surgery lipase trending down from > 2000 to ~ 700; LFTs trending down discharge to home on 10/13 Sinus Tachycardia - resolved likely secondary to pain CT chest negative for PE Obesity spoke to patient about weight loss she will likely need a nutritional consultation as an outpatient to come up with a diet plan DVT ppx ambulation, SCDs d/c home on 10/13, if tolerating diet
[2016-10-12] MEDS: FAMOTIDINE IV INJ 20 MG in DEXTROSE 5% 100ML 100 ML IV SCH ×2 (09:54→22:13)
[2016-10-12] MEDS ORDERED: POTASSIUM CHLORIDE 20 MEQ TABCR PO ONE (10:00)
[2016-10-12 12:09] VITALS: BP 134/69; PULSE 96; TEMP 36.5; O2SAT 97
--- NOTE | 2016-10-12 13:39 | Surgery Progress Note ---
Surgery Progress Note Date of Service October 12, 2016. Subjective Post OP Day: 1 + ambulating, + diet (regular diet), + feeling well, + pain controlled, No nausea, No vomiting Objective Vital Signs: Date Time Temp Pulse Resp B/P Pulse Ox O2 Delivery O2 Flow Rate FiO2 10/12/16 12:09 36.5 96 18 134/69 97 10/12/16 12:00 Room Air 10/12/16 08:07 36.8 79 18 139/97 96 10/12/16 08:00 Room Air 10/12/16 04:00 36.8 72 18 131/87 94 Room Air 10/12/16 04:00 Room Air 10/12/16 00:00 Room Air 10/11/16 23:52 37.3 106 17 121/91 97 Room Air 10/11/16 20:00 Room Air 10/11/16 19:23 36.7 107 18 141/98 98 Room Air 10/11/16 18:19 37.1 86 20 144/96 98 Room Air 10/11/16 17:19 36.8 99 22 112/74 98 Room Air 10/11/16 16:19 36.7 88 22 157/96 98 Room Air 10/11/16 16:00 96 Room Air 10/11/16 15:49 36.8 91 22 135/79 100 Room Air 10/11/16 15:37 37.2 92 18 137/86 100 Room Air 10/11/16 15:15 87 16 130/75 100 Nasal Cannula 3 10/11/16 15:10 36.4 86 16 137/86 100 Nasal Cannula 3 10/11/16 15:00 86 16 134/77 100 Mask 6 10/11/16 14:50 90 16 136/89 100 Mask 10 10/11/16 14:43 36.4 88 16 134/83 100 Mask 10 General Appearance: WD/WN, no apparent distress, + obese Head: normocephalic, atraumatic Neck: trachea midline Respiratory/Chest: no respiratory distress, no accessory muscle use Abdomen: non distended, soft, + tenderness (appropriate post op) Incision(s): clean (dressings clean and dry), dry Laboratory Results: Results Past 24 Hours Test 10/12/16 07:02 Range/Units White Blood Count 9.21 4.8-10.8 K/uL Red Blood Count 4.21 4.2-5.4 M/uL Hemoglobin 11.0 12.0-16.0 g/dL Hematocrit 34.3 37-47 % Mean Corpuscular Volume 81.5 80-100 fL Mean Corpuscular Hemoglobin 26.1 25-34 pg Mean Corpuscular Hemoglobin Concent 32.1 32-36 g/dl Platelet Count 248 130-400 K/uL Mean Platelet Volume 10.8 7.4-10.4 fL Neutrophils (%) (Auto) 78.5 % Lymphocytes (%) (Auto) 14.3 % Monocytes (%) (Auto) 6.6 % Eosinophils (%) (Auto) 0.1 % Basophils (%) (Auto) 0.1 % Neutrophils # (Auto) 7.22 1.4-6.5 K/uL Lymphocytes # (Auto) 1.32 1.2-3.4 K/uL Monocytes # (Auto) 0.61 0.11-0.59 K/uL Eosinophils # (Auto) 0.01 0-0.5 K/uL Basophils # (Auto) 0.01 0-0.2 K/uL RDW Standard Deviation 58.2 36.4-46.3 fL RDW Coefficient of Variation 19.6 11.5-14.5 % Immature Granulocyte % (Auto) 0.4 % Immature Granulocyte # (Auto) 0.04 0.00-0.02 K/uL Sodium Level 138 136-145 mmol/L Potassium Level 3.3 3.5-5.1 mmol/L Chloride Level 103 98-107 mmol/L Carbon Dioxide Level 29 21-32 mmol/L Anion Gap 6.0 3-11 mmol/L Blood Urea Nitrogen 2 7-18 mg/dl Creatinine 0.65 0.60-1.20 mg/dl Est Creatinine Clear Calc Drug Dose 187.1 ml/min Estimated GFR () 140.0 Estimated GFR (Non- 120.8 BUN/Creatinine Ratio 2.6 10-20 Random Glucose 129 70-99 mg/dl Calcium Level 8.4 8.5-10.1 mg/dl Total Bilirubin 0.4 0.2-1 mg/dl Direct Bilirubin 0.1 0-0.2 mg/dl Aspartate Amino Transf (AST/SGOT) 68 15-37 U/L Alanine Aminotransferase (ALT/SGPT) 67 12-78 U/L Alkaline Phosphatase 58 45-117 U/L Total Protein 6.4 6.4-8.2 gm/dl Albumin 2.9 3.4-5.0 gm/dl Globulin 3.5 2.5-4.0 gm/dl Albumin/Globulin Ratio 0.8 0.9-2 Lipase 722 73-393 U/L Assessment & Plan POD # 1 s/p laparoscopic cholecystectomy - vitals stable - no leukocytosis - tolerating regular diet - adequate urine output - pain controlled Plan: continue regular diet continue pain management prn (prefer PO, IV only if needed) continue management by hospitalist service from surgical standpoint patient is stable for discharge discharge instructions given Rx for Percocet will be written Follow-up 1 week in surgical office Dr. Perrin has seen patient, and agrees with above.
--- NOTE | 2016-10-12 13:49 | Discharge Instructions ---
Discharge Instructions Date of Service October 12, 2016. Admission Reason for Admission: Abdominal Pain Discharge Discharge Diagnosis / Problem: status post laparoscopic cholecystectomy Discharge Goals Goal(s): Decrease discomfort Activity Recommendations Activity Limitations: as noted below No heavy lifting over 20 pounds for 2 weeks No submerging incisions underwater for 2 weeks (baths, swimming pools, hot tubs) You may shower in 3 day and remove outer dressings No driving while taking narcotic pain medication . Instructions / Follow-Up Instructions / Follow-Up Leave steri strips on for 7 days after surgery, if they fall off before that is fine. Follow a low fat diet for a few weeks post op Follow-up in surgical office in 1 week Call office at [phone] to make an appointment with Dr. Perrin Current Hospital Diet Patient's current hospital diet: Low Fat Diet Discharge Diet Recommended Diet: Low Fat Diet Procedures Procedures Performed: Laparoscopic Cholecystectomy Pending Studies Studies pending at discharge: no Laboratory Results Lipid Panel Test 08/31/16 07:02 Range/Units Triglycerides Level 122 0-150 mg/dl Cholesterol Level 191 0-200 mg/dl HDL Cholesterol 77 mg/dl Cholesterol/HDL Ratio 2.5 LDL Cholesterol, Calculated 90 mg/dl Medical Emergencies . Who to Call and When: Medical Emergencies: If at any time you feel your situation is an emergency, please call 911 immediately. . Non-Emergent Contact Non-Emergency issues call your: Primary Care Provider, Surgeon Call Non-Emergent contact if: you have a fever, temperature is above 101.5, your pain is not controlled, your pain is worsening, wound has increased drainage, wound has increased redness, wound has increased pain . "Provider Documentation" section prepared by Nati Michaels. . VTE Core Measure Inpt VTE Proph given/why not?: Enoxaparin (Lovenox)SQ, SCD's [place] Drug Monitoring Program Search Results: patient reviewed within database, no issues identified
[2016-10-12] MEDS ORDERED: OXYC-57 PO (13:55)
[2016-10-12 14:20] VITALS: BP 150/104; PULSE 81; TEMP 36.9; O2SAT 98
[2016-10-12 15:30] VITALS: BP 131/94; PULSE 84; TEMP 36.6; O2SAT 97
[2016-10-12 23:11] VITALS: BP 133/85; PULSE 87; TEMP 37; O2SAT 98
[2016-10-13] MEDS: HYDROmorphone INJ 1 MG/ML SYR IV PRN ×3 (01:33→18:18)
[2016-10-13] MEDS: D5W AND 1/2NSS + 20MEQ KCL 1,000 ML IV SCH (05:55)
[2016-10-13] MEDS: OXYCODONE/ACETAMINOPHEN 5-325 TAB PO PRN ×2 (07:26→12:16)
[2016-10-13 08:29] VITALS: BP 145/92; PULSE 80; TEMP 37; O2SAT 97
[2016-10-13 08:32] LABS: BLOOD UREA NITROGEN 4 mg/dl (7-18); BUN/CREATININE RATIO 6.6 (10-20); CALCIUM 8.7 mg/dl (8.5-10.1); CARBON DIOXIDE 24 mmol/L (21-32); CHLORIDE 109 mmol/L (98-107); CREATININE 0.68 mg/dl (0.60-1.20); GLUCOSE 115 mg/dl (70-99); SODIUM 139 mmol/L (136-145)
[2016-10-13] MEDS: SUCRALFATE 1 GM/10 ML UDC PO SCH ×4 (09:03→21:15)
--- NOTE | 2016-10-13 10:39 | Progress Note ---
Subjective Date of Service: October 13, 2016. Subjective Pt evaluation today including: conversation w/ patient, physical exam, lab review, review of studies, review of inpatient medication list Saw/examined the patient in room 358 Doing well, no problems/issues to note; tolerated breakfast, no nausea/vomiting/ diarrhea no fevers/chills +pain at site of surgery Problem List Medical Problems: (1) Dehydration Status: Acute (2) Gastritis Status: Chronic (3) Intractable abdominal pain Status: Acute (4) Pancreatic mass Status: Acute (5) Pancreatitis Status: Acute (6) Pancreatitis Status: Acute Surgical Problems: (1) History of esophagogastroduodenoscopy (EGD) Permanent Comment: 09/01/16- - [place] Grade B reflux esophagitis Status: Chronic Review of Systems Constitutional: No chills, No fever Respiratory: No shortness of breath Cardiac: No chest pain Abdomen: + pain, + see HPI, No diarrhea, No nausea, No vomiting Medications Current Inpatient Medications Medications (Trade) Dose Ordered Sig/Marlin Route Start Time Stop Time Status Last Admin Dose Admin Promethazine HCl/ Sodium Chloride (Phenergan Inj/ Nss 50ml) 51 ml @ 204 mls/hr Q6H PRN IV 10/07/16 17:30 11/06/16 17:29 10/10/16 15:06 204 MLS/HR Miscellaneous (Iv Fluids Completed) 1 ea PRN PRN N/A 10/07/16 18:45 10/07/17 18:44 Al Hydrox/Mg Hydrox/Simethicone (Maalox Max Susp) 15 ml Q6H PRN PO 10/07/16 21:45 11/06/16 21:44 Sucralfate 1 gm 1 gm QID PO 10/07/16 21:45 11/06/16 21:44 10/13/16 09:03 1 GM Famotidine/ Dextrose (Pepcid IV Inj/ D5 100ml) 102 ml @ 200 mls/hr Q12H IV 10/07/16 22:15 11/06/16 22:14 10/12/16 22:13 200 MLS/HR Hydromorphone HCl 0.5 mg 0.5 mg Q4H PRN IV 10/07/16 23:00 10/21/16 22:59 10/11/16 21:12 0.5 MG Potassium Chloride/Dextrose/ Sod Cl (D5W And 1/2nss + 20meq KCl) 1,000 ml @ 80 mls/hr [id number] IV 10/11/16 15:00 11/10/16 14:59 10/13/16 05:55 80 MLS/HR Acetaminophen (Tylenol Tab) 650 mg Q6H PRN PO 10/11/16 14:30 11/10/16 14:29 Oxycodone/ Acetaminophen (Percocet 5-325mg Tab) 1 tab Q4H PRN PO 10/11/16 14:30 10/25/16 14:29 10/13/16 07:26 1 TAB Hydromorphone HCl (Dilaudid Inj) 1 mg Q3H PRN IV 10/11/16 14:30 10/25/16 14:29 10/13/16 01:33 1 MG Objective Vital Signs Date Time Temp Pulse Resp B/P Pulse Ox O2 Delivery O2 Flow Rate FiO2 10/13/16 08:29 37.0 80 16 145/92 97 Room Air 10/13/16 07:15 Room Air 10/12/16 23:30 Room Air 10/12/16 23:11 37.0 87 16 133/85 98 Room Air 10/12/16 16:00 Room Air 10/12/16 15:30 36.6 84 16 131/94 97 Room Air 10/12/16 14:20 36.9 81 18 150/104 98 Room Air 10/12/16 12:09 36.5 96 18 134/69 97 10/12/16 12:00 Room Air Physical Exam General Appearance: no apparent distress, + obese Respiratory/Chest: no respiratory distress, no accessory muscle use Cardiovascular: regular rate, rhythm Abdomen: normal bowel sounds, soft, + tenderness (mildly tender at site of surgery) Laboratory Results Last 24 Hours Test 10/13/16 07:57 Sodium Level 139 mmol/L Potassium Level mmol/L Chloride Level 109 mmol/L Carbon Dioxide Level 24 mmol/L Anion Gap 6.0 mmol/L Blood Urea Nitrogen 4 mg/dl Creatinine 0.68 mg/dl Est Creatinine Clear Calc Drug Dose 178.8 ml/min Estimated GFR () 138.0 Estimated GFR (Non- 119.0 BUN/Creatinine Ratio 6.6 Random Glucose 115 mg/dl Calcium Level 8.7 mg/dl Lipase 4282 U/L Assessment and Plan This is a 26 year old female with a PMH of obesity, uterine fibroid, recurrent pancreatitis, esophagitis/gastritis, fatty liver - presents with recurrent pancreatitis Recurrent Gallstone Pancreatitis 10/13 s/p lap carley, POD #2; tolerating PO intake, no n/v/d plan is to d/c home one week f/u with general surgery follow-up with primary care next week will d/c home with Percocet and Tramadol PRN 10/12 patient presented with elevated lipase, and mildly elevated LFTs EUS performed showing gallbladder sludge appreciate GI input general surgery consulted as well, appreciate management; s/p lap carley on 10/11 patient's epigastric pain has improved some residual pain at site of surgery tolerated PO intake (regular breakfast) further management as per general surgery lipase trending down from > 2000 to ~ 700; LFTs trending down discharge to home on 10/13 Sinus Tachycardia - resolved likely secondary to pain CT chest negative for PE Obesity spoke to patient about weight loss she will likely need a nutritional consultation as an outpatient to come up with a diet plan DVT ppx ambulation, SCDs d/c home on 10/13, if tolerating diet
[2016-10-13] MEDS ORDERED: ULT50X PO (10:40)
--- NOTE | 2016-10-13 10:44 | Discharge Instructions ---
Discharge Instructions Date of Service October 15, 2016. Admission Reason for Admission: Abdominal Pain Discharge Discharge Diagnosis / Problem: Abdominal Pain, Recurrent Gallstone Pancreatitis Discharge Goals Goal(s): Decrease discomfort, Improve function Activity Recommendations Activity Limitations: resume your previous activity . Instructions / Follow-Up Instructions / Follow-Up Please follow-up with Dr. Castro on October 19 @ 9:30AM * For pain, use percocet and tramadol alternating - only use as needed and do not drive/operate heavy machinery while taking these medications * Follow activity instructions as per general surgery - follow-up with them in one week * Follow a low fat diet as an outpatient * You may benefit from seeing a puddler pile driving as an outpatient Current Hospital Diet Patient's current hospital diet: Low Fat Diet Discharge Diet Recommended Diet: Low Fat Diet Procedures Procedures Performed: Laparoscopic Cholecystectomy Pending Studies Studies pending at discharge: no Laboratory Results Lipid Panel Test 08/31/16 07:02 Range/Units Triglycerides Level 122 0-150 mg/dl Cholesterol Level 191 0-200 mg/dl HDL Cholesterol 77 mg/dl Cholesterol/HDL Ratio 2.5 LDL Cholesterol, Calculated 90 mg/dl Medical Emergencies . Who to Call and When: Medical Emergencies: If at any time you feel your situation is an emergency, please call 911 immediately. . Non-Emergent Contact Non-Emergency issues call your: Primary Care Provider . . "Provider Documentation" section prepared by Eugene Lara. . VTE Core Measure Inpt VTE Proph given/why not?: Enoxaparin (Lovenox)SQ, SCD's [place] Drug Monitoring [place] Search Results: no issues identified (no matching patient identified)
--- NOTE | 2016-10-13 10:47 | Discharge Summary ---
Discharge Summary Date of Service October 13, 2016. Discharge Summary Admission Date: October 11, 2016 at 15:08 Discharge Date: October 13, 2016 Discharge Disposition: Home Principal Diagnosis: Recurrent Gallstone Pancreatitis s/p lap carley Medication Reconciliation New Medications: Oxycodone/Acetaminophen 5MG/325MG (Percocet 5MG/325MG) Tab 1 TABLET PO Q4H PRN for Pain, #18 TAB Tramadol HCl (Tramadol HCl) 50 Mg Tab 50 MG PO Q6 PRN for Pain for 5 Days, #20 TABS Continued Medications: Cholecalciferol (Vitamin D) Unknown Strength Tab Unknown Dose PO DAILY Cyanocobalamin (B12) Unknown Strength Tab 1 TAB PO DAILY Multivitamin (Multivitamin) Tab 1 TAB PO DAILY, TAB Norethindrone Acetate (Norethindrone Acetate) 5 Mg Tab 5 MG PO DAILY, #40 TAB Probiotic Product (Probiotic) 1 Cap Cap 1 CAP PO DAILY Ranitidine HCl (Ranitidine HCl) 150 Mg Tab 150 MG PO BID for 30 Days, #60 TAB Sucralfate (Sucralfate) 1 Gm/10 Ml Susp 1 GM PO BID for 15 Days Admission Information HPI (per Admitting provider): This is a 22 year old female with PMH of acute pancreatitis, h/o esophagitis/ gastritis, fatty liver, uterine fibroid, who presents to the ED with abdominal pain with N/V. Patient was recently admitted in August 2016 for epigastric pain, mildly elevated LT likely secondary to fatty liver. Had gallbladder US showing no gallstones, hepatomegaly and severe hepatic stenosis, MRCP which showed fatty liver, EGD which showed LA grade B esophagitis. She was then admitted September 24-2016 for acute [address]. [address] abdomen showed unremarkable pancreas, hepatomegaly, hepatic steatosis. RUQ US showed no acute GB findings. Patient was seen by GI and planned for outpatient EUS 4 weeks after discharge. Pt was treated with Cipro for possible UTI with resolution of urinary symptoms. She was sent home on ranitidine and sucralfate and was eating normally and feeling better up until this morning. Since this am has nausea with approx 10 episodes of vomiting. She received Phenergan in ER but still felt nauseous and vomited while I was in the room. She reports associated dull diffuse abdominal pain rated 9/10. She states it feels the same as prior episode of pancreatitis. She has been tachycardic in the ER with rates as high as 160's and now running 120s. BP has been elevated. She received IVF's in the ER. Feels a little dizzy. No fever, chills, cough, SOB, chest pain, palpitations, diarrhea, constipation, hematochezia, melena, urinary symptoms. Physical Exam (per Admitting): General Appearance: + pertinent finding (alert obese 26 year old female, uncomfortable due to nausea, vomiting during exam) Head: normocephalic, atraumatic Eyes: normal inspection, PERRL, EOMI ENT: hearing grossly normal, pharynx normal Neck: supple, trachea midline Respiratory/Chest: lungs clear, normal breath sounds, no respiratory distress, no accessory muscle use Cardiovascular: no murmur, + tachycardia (regular rhythm, rate 150 improved to 120) Abdomen/GI: normal bowel sounds, soft, + pertinent finding (tender in epigastrium and ) Extremities/Musculoskelatal: no calf tenderness, no pedal edema Neurologic/Psych: alert, normal mood/affect, oriented x 3 Skin: normal color, warm/dry Hospital Course This is a 26 year old female with a PMH of obesity, uterine fibroid, recurrent pancreatitis, esophagitis/gastritis, fatty liver - presents with recurrent pancreatitis Recurrent Gallstone Pancreatitis 10/15 lipase trending down to ~ 1000 full liquid diet, advance as tolerated plan to d/c home today 10/14 s/p lap carley POD #3 her discharged canceled due to elevated lipase to >4000 lipase trending down to ~ 1000 no epigastric tenderness appreciate gen surg input NPO, IVFs, advance diet as per general surgery try to avoid Percocet due to possible spasm of Oddi issues continue Tramadol PRN, Dilaudid for breakthrough 10/13 s/p lap carley, POD #2; tolerating PO intake, no n/v/d plan is to d/c home one week f/u with general surgery follow-up with primary care next week will d/c home with Percocet and Tramadol PRN 10/12 patient presented with elevated lipase, and mildly elevated LFTs EUS performed showing gallbladder sludge appreciate GI input general surgery consulted as well, appreciate management; s/p lap carley on 10/11 patient's epigastric pain has improved some residual pain at site of surgery tolerated PO intake (regular breakfast) further management as per general surgery lipase trending down from > 2000 to ~ 700; LFTs trending down discharge to home on 10/13 Sinus Tachycardia - resolved likely secondary to pain CT chest negative for PE Obesity spoke to patient about weight loss she will likely need a nutritional consultation as an outpatient to come up with a diet plan DVT ppx ambulation, SCDs Total time spent on discharge = 40 minutes This includes examination of the patient, discharge planning, medication reconciliation, and communication with other providers. Discharge Instructions Please follow-up with Dr. Castro on October 19 @ 9:30AM * For pain, use percocet and tramadol alternating - only use as needed and do not drive/operate heavy machinery while taking these medications * Follow activity instructions as per general surgery - follow-up with them in one week * Follow a low fat diet as an outpatient * You may benefit from seeing a surgical technology instructor as an outpatient Additional Copies To Shabnam Castro D.O. Newhouser, Shane D., D.O.
[2016-10-13] MEDS: FAMOTIDINE IV INJ 20 MG in DEXTROSE 5% 100ML 100 ML IV SCH ×2 (10:57→21:29)
--- NOTE | 2016-10-13 11:16 | Surgery Progress Note ---
Surgery Progress Note Date of Service October 13, 2016. Subjective Post OP Day: 2 + ambulating, + diet (tolerated regular diet), + feeling well, No SOB, No chest pain, No nausea, No vomiting Still having pain but controlled More so on right upper side and some back pain last evening No nausea or vomiting Objective Vital Signs: Date Time Temp Pulse Resp B/P Pulse Ox O2 Delivery O2 Flow Rate FiO2 10/13/16 08:29 37.0 80 16 145/92 97 Room Air 10/13/16 07:15 Room Air 10/12/16 23:30 Room Air 10/12/16 23:11 37.0 87 16 133/85 98 Room Air 10/12/16 16:00 Room Air 10/12/16 15:30 36.6 84 16 131/94 97 Room Air 10/12/16 14:20 36.9 81 18 150/104 98 Room Air 10/12/16 12:09 36.5 96 18 134/69 97 10/12/16 12:00 Room Air General Appearance: WD/WN, no apparent distress, + obese Head: normocephalic, atraumatic Neck: trachea midline Respiratory/Chest: no respiratory distress, no accessory muscle use Abdomen: non distended, soft, + tenderness (RUQ near incision sites) Incision(s): clean, dry (dressings clean and dry) Laboratory Results: Results Past 24 Hours Test 10/13/16 07:57 10/13/16 10:58 Range/Units Sodium Level 139 136-145 mmol/L Potassium Level 3.5-5.1 mmol/L Chloride Level 109 98-107 mmol/L Carbon Dioxide Level 24 21-32 mmol/L Anion Gap 6.0 3-11 mmol/L Blood Urea Nitrogen 4 7-18 mg/dl Creatinine 0.68 0.60-1.20 mg/dl Est Creatinine Clear Calc Drug Dose 178.8 ml/min Estimated GFR () 138.0 Estimated GFR (Non- 119.0 BUN/Creatinine Ratio 6.6 10-20 Random Glucose 115 70-99 mg/dl Calcium Level 8.7 8.5-10.1 mg/dl Lipase 4282 73-393 U/L Assessment & Plan POD # 2 s/p laparoscopic cholecystectomy - vitals stable - Elevation in Lipase to 4282 today from 700 yesterday - tolerating regular diet - adequate urine output - pain controlled but still moderate,some back pain last evening Plan: Patient was to be discharged today per medicine service however due to increase in lipase to 4282 would prefer to keep patient one more evening. Change to NPO and start IV fluids at 100 mls/hr CBC and LFTs today Repeat labs in am Continue pain management prn Encourage ambulation Dr. Perrin has seen patient, and agrees with above.
[2016-10-13 11:47] LABS: HEMATOCRIT 34.6 % (37-47); MEAN CELL VOLUME 81.8 fL (80-100); MEAN CORPUSCULAR HEMOGLOBIN 25.5 pg (25-34); MEAN CORPUSCULAR HGB CONC 31.2 g/dl (32-36); MEAN PLATELET VOLUME 10.4 fL (7.4-10.4); PLATELET COUNT 211 K/uL (130-400); RED BLOOD COUNT 4.23 M/uL (4.2-5.4)
[2016-10-13 12:09] LABS: ALKALINE PHOSPHATASE 62 U/L (45-117); ALT/SGPT 78 U/L (12-78); AST/SGOT 73 U/L (15-37)
[2016-10-13] MEDS: SODIUM CHLORIDE 0.9% 1000ML 1,000 ML IV SCH ×2 (12:15→21:15)
[2016-10-13 15:40] VITALS: BP 134/90; PULSE 84; TEMP 36.8; O2SAT 96
[2016-10-13 23:00] VITALS: BP 142/81; PULSE 87; TEMP 36.9; O2SAT 100
[2016-10-14] MEDS: HYDROmorphone INJ 1 MG/ML SYR IV PRN ×4 (00:05→18:10)
[2016-10-14 06:57] VITALS: BP 139/85; PULSE 81; TEMP 36.4; O2SAT 95
[2016-10-14 07:23] LABS: HEMATOCRIT 33.5 % (37-47); MEAN CELL VOLUME 81.5 fL (80-100); MEAN CORPUSCULAR HEMOGLOBIN 25.8 pg (25-34); MEAN CORPUSCULAR HGB CONC 31.6 g/dl (32-36); PLATELET COUNT 187 K/uL (130-400); RED BLOOD COUNT 4.11 M/uL (4.2-5.4); WHITE BLOOD COUNT 5.76 K/uL (4.8-10.8)
[2016-10-14] MEDS: SODIUM CHLORIDE 0.9% 1000ML 1,000 ML IV SCH (07:27)
[2016-10-14 07:56] LABS: BUN/CREATININE RATIO 5.1 (10-20); CALCIUM 8.3 mg/dl (8.5-10.1); CREATININE 0.63 mg/dl (0.60-1.20); POTASSIUM 3.2 mmol/L (3.5-5.1)
[2016-10-14 07:59] LABS: ALB/GLOB RATIO 0.9 (0.9-2)
[2016-10-14] MEDS: SUCRALFATE 1 GM/10 ML UDC PO SCH ×4 (08:38→21:43)
[2016-10-14] MEDS: OXYCODONE/ACETAMINOPHEN 5-325 TAB PO PRN (08:39)
--- NOTE | 2016-10-14 09:17 | Surgery Progress Note ---
Surgery Progress Note Date of Service October 14, 2016. Subjective Post OP Day: 3 + complaints (abdominal pain still present, no radiation straight to her back), + feeling well, + pain controlled (dilaudid helping, percocet not helping), No SOB, No chest pain, No nausea, No vomiting hungry Objective Vital Signs: Date Time Temp Pulse Resp B/P Pulse Ox O2 Delivery O2 Flow Rate FiO2 10/14/16 07:30 Room Air 10/14/16 06:57 36.4 81 16 139/85 95 Room Air 10/14/16 00:10 Room Air 10/13/16 23:00 36.9 87 16 142/81 100 Room Air 10/13/16 15:45 Room Air 10/13/16 15:40 36.8 84 18 134/90 96 Room Air General Appearance: WD/WN, no apparent distress, + obese Head: normocephalic, atraumatic Neck: trachea midline Respiratory/Chest: no respiratory distress, no accessory muscle use Abdomen: non distended, soft, + tenderness (epigastric and at incision sites ( appropriate post op at incisions), no rigidity or guarding or peritonitis) Incision(s): clean, dry Laboratory Results: Results Past 24 Hours Test 10/13/16 11:30 10/14/16 06:28 Range/Units White Blood Count 6.00 5.76 4.8-10.8 K/uL Red Blood Count 4.23 4.11 4.2-5.4 M/uL Hemoglobin 10.8 10.6 12.0-16.0 g/dL Hematocrit 34.6 33.5 37-47 % Mean Corpuscular Volume 81.8 81.5 80-100 fL Mean Corpuscular Hemoglobin 25.5 25.8 25-34 pg Mean Corpuscular Hemoglobin Concent 31.2 31.6 32-36 g/dl RDW Standard Deviation 59.2 36.4-46.3 fL RDW Coefficient of Variation 20.0 11.5-14.5 % Platelet Count 211 187 130-400 K/uL Mean Platelet Volume 10.4 7.4-10.4 fL Total Bilirubin 0.3 0.5 0.2-1 mg/dl Direct Bilirubin < 0.1 0-0.2 mg/dl Aspartate Amino Transf (AST/SGOT) 73 82 15-37 U/L Alanine Aminotransferase (ALT/SGPT) 78 85 12-78 U/L Alkaline Phosphatase 62 57 45-117 U/L Total Protein 6.1 6.0 6.4-8.2 gm/dl Albumin 2.7 2.8 3.4-5.0 gm/dl Sodium Level 143 136-145 mmol/L Potassium Level 3.2 3.5-5.1 mmol/L Chloride Level 107 98-107 mmol/L Carbon Dioxide Level 29 21-32 mmol/L Anion Gap 7.0 3-11 mmol/L Blood Urea Nitrogen 3 7-18 mg/dl Creatinine 0.63 0.60-1.20 mg/dl Est Creatinine Clear Calc Drug Dose 193.0 ml/min Estimated GFR () 141.5 Estimated GFR (Non- 122.1 BUN/Creatinine Ratio 5.1 10-20 Random Glucose 92 70-99 mg/dl Calcium Level 8.3 8.5-10.1 mg/dl Globulin 3.2 2.5-4.0 gm/dl Albumin/Globulin Ratio 0.9 0.9-2 Lipase 1688 73-393 U/L Assessment & Plan POD # 3 s/p laparoscopic cholecystectomy - vitals stable - Lipase trending down 1688 today (4282 yesterday) - adequate urine output - pain controlled but still moderate - no leukocytosis - total bilirubin normal Plan: Lipase trending down but still elevated. Would like to keep one more night Repeat labs in am Pathology showed no gallstones however mild chronic cholecystitis Start PO tramadol 50 mg q 4 hr prn pain Continue IV Dilaudid prn Discussed with Dr. Perrin who agrees with above
[2016-10-14] MEDS: FAMOTIDINE IV INJ 20 MG in DEXTROSE 5% 100ML 100 ML IV SCH ×2 (10:07→21:43)
--- NOTE | 2016-10-14 12:13 | Progress Note ---
Subjective Date of Service: October 14, 2016. Subjective Pt evaluation today including: conversation w/ patient, physical exam, lab review, review of studies, review of inpatient medication list Saw/examined the patient in room 358 She's doing well; no significant abdominal tenderness she is aware of the plan to stay here another night has not eating yesterday or today Problem List Medical Problems: (1) Dehydration Status: Acute (2) Gastritis Status: Chronic (3) Intractable abdominal pain Status: Acute (4) Pancreatic mass Status: Acute (5) Pancreatitis Status: Acute (6) Pancreatitis Status: Acute Surgical Problems: (1) History of esophagogastroduodenoscopy (EGD) Permanent Comment: 09/01/16- - LA Grade B reflux esophagitis Status: Chronic Review of Systems Constitutional: No chills, No fever Respiratory: No shortness of breath Cardiac: No chest pain Abdomen: + pain, No GI bleeding, No constipation, No diarrhea, No nausea, No vomiting Medications Current Inpatient Medications Medications (Trade) Dose Ordered Sig/Marlin Route Start Time Stop Time Status Last Admin Dose Admin Promethazine HCl/ Sodium Chloride (Phenergan Inj/ Nss 50ml) 51 ml @ 204 mls/hr Q6H PRN IV 10/07/16 17:30 11/06/16 17:29 10/10/16 15:06 204 MLS/HR Miscellaneous (Iv Fluids Completed) 1 ea PRN PRN N/A 10/07/16 18:45 10/07/17 18:44 Al Hydrox/Mg Hydrox/Simethicone (Maalox Max Susp) 15 ml Q6H PRN PO 10/07/16 21:45 11/06/16 21:44 Sucralfate 1 gm 1 gm QID PO 10/07/16 21:45 11/06/16 21:44 10/14/16 08:38 1 GM Famotidine/ Dextrose (Pepcid IV Inj/ D5 100ml) 102 ml @ 200 mls/hr Q12H IV 10/07/16 22:15 11/06/16 22:14 10/14/16 10:07 200 MLS/HR Hydromorphone HCl (Dilaudid Inj) 0.5 mg Q4H PRN IV 10/07/16 23:00 10/21/16 22:59 10/11/16 21:12 0.5 MG Acetaminophen (Tylenol Tab) 650 mg Q6H PRN PO 10/11/16 14:30 11/10/16 14:29 Oxycodone/ Acetaminophen (Percocet 5-325mg Tab) 1 tab Q4H PRN PO 10/11/16 14:30 10/25/16 14:29 10/14/16 08:39 1 TAB Hydromorphone HCl 1 mg 1 mg Q3H PRN IV 10/11/16 14:30 10/25/16 14:29 10/14/16 10:08 1 MG Sodium Chloride (Nss 1000ml) 1,000 ml @ 100 mls/hr Q10H IV 10/13/16 11:15 11/12/16 11:14 10/14/16 07:27 100 MLS/HR Tramadol HCl (Ultram Tab) 50 mg Q4H PRN PO 10/14/16 09:15 11/13/16 09:14 Objective Vital Signs Date Time Temp Pulse Resp B/P Pulse Ox O2 Delivery O2 Flow Rate FiO2 10/14/16 07:30 Room Air 10/14/16 06:57 36.4 81 16 139/85 95 Room Air 10/14/16 00:10 Room Air 10/13/16 23:00 36.9 87 16 142/81 100 Room Air 10/13/16 15:45 Room Air 10/13/16 15:40 36.8 84 18 134/90 96 Room Air Physical Exam General Appearance: no apparent distress, + obese Respiratory/Chest: no respiratory distress, no accessory muscle use Abdomen: normal bowel sounds, soft, + tenderness (RUQ, site of surgery) Laboratory Results Last 24 Hours Test 10/14/16 06:28 White Blood Count 5.76 K/uL Red Blood Count 4.11 M/uL Hemoglobin 10.6 g/dL Hematocrit 33.5 % Mean Corpuscular Volume 81.5 fL Mean Corpuscular Hemoglobin 25.8 pg Mean Corpuscular Hemoglobin Concent 31.6 g/dl Platelet Count 187 K/uL Sodium Level 143 mmol/L Potassium Level 3.2 mmol/L Chloride Level 107 mmol/L Carbon Dioxide Level 29 mmol/L Anion Gap 7.0 mmol/L Blood Urea Nitrogen 3 mg/dl Creatinine 0.63 mg/dl Est Creatinine Clear Calc Drug Dose 193.0 ml/min Estimated GFR () 141.5 Estimated GFR (Non- 122.1 BUN/Creatinine Ratio 5.1 Random Glucose 92 mg/dl Calcium Level 8.3 mg/dl Total Bilirubin 0.5 mg/dl Aspartate Amino Transf (AST/SGOT) 82 U/L Alanine Aminotransferase (ALT/SGPT) 85 U/L Alkaline Phosphatase 57 U/L Total Protein 6.0 gm/dl Albumin 2.8 gm/dl Globulin 3.2 gm/dl Albumin/Globulin Ratio 0.9 Lipase 1688 U/L Assessment and Plan This is a 26 year old female with a PMH of obesity, uterine fibroid, recurrent pancreatitis, esophagitis/gastritis, fatty liver - presents with recurrent pancreatitis Recurrent Gallstone Pancreatitis 10/14 s/p lap carley POD #3 her discharged canceled due to elevated lipase to >4000 lipase trending down to ~ 1000 no epigastric tenderness appreciate gen surg input NPO, IVFs, advance diet as per general surgery try to avoid Percocet due to possible spasm of Oddi issues continue Tramadol PRN, Dilaudid for breakthrough 10/13 s/p lap carley, POD #2; tolerating PO intake, no n/v/d plan is to d/c home one week f/u with general surgery follow-up with primary care next week will d/c home with Percocet and Tramadol PRN 10/12 patient presented with elevated lipase, and mildly elevated LFTs EUS performed showing gallbladder sludge appreciate GI input general surgery consulted as well, appreciate management; s/p lap carley on 10/11 patient's epigastric pain has improved some residual pain at site of surgery tolerated PO intake (regular breakfast) further management as per general surgery lipase trending down from > 2000 to ~ 700; LFTs trending down discharge to home on 10/13 Sinus Tachycardia - resolved likely secondary to pain CT chest negative for PE Obesity spoke to patient about weight loss she will likely need a nutritional consultation as an outpatient to come up with a diet plan DVT ppx ambulation, SCDs
[2016-10-14 15:09] VITALS: BP 140/89; PULSE 87; TEMP 37; O2SAT 99
[2016-10-14] MEDS: TRAMADOL HCL 50 MG TAB PO PRN ×2 (15:50→23:49)
[2016-10-14] MEDS: D5W AND 1/2NSS + 40MEQ KCL 1,000 ML IV SCH (17:28)
[2016-10-14 22:50] VITALS: BP 144/86; PULSE 92; TEMP 36.8; O2SAT 96
[2016-10-15] MEDS: HYDROmorphone INJ 1 MG/ML SYR IV PRN (00:42)
[2016-10-15] MEDS: D5W AND 1/2NSS + 40MEQ KCL 1,000 ML IV SCH ×2 (01:45→12:01)
[2016-10-15] MEDS: TRAMADOL HCL 50 MG TAB PO PRN ×3 (06:21→14:27)
[2016-10-15 07:22] LABS: HEMATOCRIT 34.1 % (37-47); MEAN CELL VOLUME 81.6 fL (80-100); MEAN CORPUSCULAR HEMOGLOBIN 26.1 pg (25-34); MEAN PLATELET VOLUME 10.4 fL (7.4-10.4); PLATELET COUNT 196 K/uL (130-400); RED BLOOD COUNT 4.18 M/uL (4.2-5.4); WHITE BLOOD COUNT 4.99 K/uL (4.8-10.8)
[2016-10-15 07:35] VITALS: BP 121/82; PULSE 85; TEMP 36.5; O2SAT 99
[2016-10-15] MEDS: OXYCODONE/ACETAMINOPHEN 5-325 TAB PO PRN (07:39)
[2016-10-15 07:55] LABS: BUN/CREATININE RATIO 4.3 (10-20); CALCIUM 8.6 mg/dl (8.5-10.1); CREATININE 0.67 mg/dl (0.60-1.20); POTASSIUM 3.5 mmol/L (3.5-5.1)
[2016-10-15 07:57] LABS: ALB/GLOB RATIO 0.8 (0.9-2)
--- NOTE | 2016-10-15 08:35 | Surgery Progress Note ---
Surgery Progress Note Date of Service October 15, 2016. Subjective Post OP Day: 4 (s/p laparoscopic cholecystectomy) + ambulating, + bowel movement, + feeling well, + pain controlled (with diaudid and tramadol), No SOB, No chest pain, No nausea, No vomiting pain improving Objective Vital Signs: Date Time Temp Pulse Resp B/P Pulse Ox O2 Delivery O2 Flow Rate FiO2 10/15/16 07:40 Room Air 10/15/16 07:35 36.5 85 16 121/82 99 Room Air 10/14/16 23:50 Room Air 10/14/16 22:50 36.8 92 18 144/86 96 Room Air 10/14/16 15:55 Room Air 10/14/16 15:09 37.0 87 18 140/89 99 Room Air General Appearance: WD/WN, no apparent distress, + obese Head: normocephalic, atraumatic Neck: trachea midline Respiratory/Chest: no respiratory distress, no accessory muscle use Abdomen: non distended, soft, + tenderness (appropriate post op at incision sites) Incision(s): clean, dry, intact (dressings clean and dry) Laboratory Results: Results Past 24 Hours Test 10/15/16 07:10 Range/Units White Blood Count 4.99 4.8-10.8 K/uL Red Blood Count 4.18 4.2-5.4 M/uL Hemoglobin 10.9 12.0-16.0 g/dL Hematocrit 34.1 37-47 % Mean Corpuscular Volume 81.6 80-100 fL Mean Corpuscular Hemoglobin 26.1 25-34 pg Mean Corpuscular Hemoglobin Concent 32.0 32-36 g/dl RDW Standard Deviation 60.8 36.4-46.3 fL RDW Coefficient of Variation 20.1 11.5-14.5 % Platelet Count 196 130-400 K/uL Mean Platelet Volume 10.4 7.4-10.4 fL Sodium Level 142 136-145 mmol/L Potassium Level 3.5 3.5-5.1 mmol/L Chloride Level 107 98-107 mmol/L Carbon Dioxide Level 29 21-32 mmol/L Anion Gap 6.0 3-11 mmol/L Blood Urea Nitrogen 3 7-18 mg/dl Creatinine 0.67 0.60-1.20 mg/dl Est Creatinine Clear Calc Drug Dose 181.5 ml/min Estimated GFR () 138.6 Estimated GFR (Non- 119.6 BUN/Creatinine Ratio 4.3 10-20 Random Glucose 106 70-99 mg/dl Calcium Level 8.6 8.5-10.1 mg/dl Total Bilirubin 0.6 0.2-1 mg/dl Aspartate Amino Transf (AST/SGOT) 77 15-37 U/L Alanine Aminotransferase (ALT/SGPT) 97 12-78 U/L Alkaline Phosphatase 61 45-117 U/L Total Protein 6.4 6.4-8.2 gm/dl Albumin 2.9 3.4-5.0 gm/dl Globulin 3.5 2.5-4.0 gm/dl Albumin/Globulin Ratio 0.8 0.9-2 Lipase 1416 73-393 U/L Assessment & Plan POD # 4 s/p laparoscopic cholecystectomy Acute/chronic Pancreatitis? - vitals stable - Lipase trending down 1416 today (~1600 yesterday) - adequate urine output - pain controlled but still moderate - no leukocytosis - total bilirubin normal Plan: Lipase trending down but still elevated. Pathology showed no gallstones however mild chronic cholecystitis start full liquids From surgical standpoint she may be discharged home later today if tolerated full liquids and advance diet slowly at home Has follow-up appointment with Dr. Perrin already scheduled for 10/20/2016. discharge instructions given Recommend follow-up with GI once discharged Dr. Perrin has seen and examined patient, agrees with above
[2016-10-15] MEDS: SUCRALFATE 1 GM/10 ML UDC PO SCH ×3 (08:50→16:37)
[2016-10-15] MEDS: FAMOTIDINE IV INJ 20 MG in DEXTROSE 5% 100ML 100 ML IV SCH (10:25)
--- NOTE | 2016-10-15 13:47 | Progress Note ---
Subjective Date of Service: October 15, 2016. Subjective Pt evaluation today including: conversation w/ patient, physical exam, lab review, review of studies, review of inpatient medication list Saw/examined the patient in room 358 She is tolerating full liquid diet; abdominal pain is still present but much improved Problem List Medical Problems: (1) Dehydration Status: Acute (2) Gastritis Status: Chronic (3) Intractable abdominal pain Status: Acute (4) Pancreatic mass Status: Acute (5) Pancreatitis Status: Acute (6) Pancreatitis Status: Acute Surgical Problems: (1) History of esophagogastroduodenoscopy (EGD) Permanent Comment: 09/01/16- - LA Grade B reflux esophagitis Status: Chronic Review of Systems Constitutional: No chills, No fever Respiratory: No shortness of breath Cardiac: No chest pain Abdomen: + pain, No diarrhea, No nausea, No vomiting Heme: No abnormal bleeding/bruising Medications Current Inpatient Medications Medications (Trade) Dose Ordered Sig/Marlin Route Start Time Stop Time Status Last Admin Dose Admin Promethazine HCl/ Sodium Chloride (Phenergan Inj/ Nss 50ml) 51 ml @ 204 mls/hr Q6H PRN IV 10/07/16 17:30 11/06/16 17:29 10/10/16 15:06 204 MLS/HR Miscellaneous (Iv Fluids Completed) 1 ea PRN PRN N/A 10/07/16 18:45 10/07/17 18:44 Al Hydrox/Mg Hydrox/Simethicone (Maalox Max Susp) 15 ml Q6H PRN PO 10/07/16 21:45 11/06/16 21:44 Sucralfate 1 gm 1 gm QID PO 10/07/16 21:45 11/06/16 21:44 10/15/16 13:14 1 GM Famotidine/ Dextrose (Pepcid IV Inj/ D5 100ml) 102 ml @ 200 mls/hr Q12H IV 10/07/16 22:15 11/06/16 22:14 10/15/16 10:25 200 MLS/HR Hydromorphone HCl (Dilaudid Inj) 0.5 mg Q4H PRN IV 10/07/16 23:00 10/21/16 22:59 10/11/16 21:12 0.5 MG Acetaminophen (Tylenol Tab) 650 mg Q6H PRN PO 10/11/16 14:30 11/10/16 14:29 Oxycodone/ Acetaminophen (Percocet 5-325mg Tab) 1 tab Q4H PRN PO 10/11/16 14:30 10/25/16 14:29 10/15/16 07:39 1 TAB Hydromorphone HCl (Dilaudid Inj) 1 mg Q3H PRN IV 10/11/16 14:30 10/25/16 14:29 10/15/16 00:42 1 MG Tramadol HCl 50 mg 50 mg Q4H PRN PO 10/14/16 09:15 11/13/16 09:14 10/15/16 10:25 50 MG Potassium Chloride/Dextrose/ Sod Cl (D5W And 1/2nss + 40meq KCl) 1,000 ml @ 100 mls/hr Q10H IV 10/14/16 16:00 11/13/16 15:59 10/15/16 12:01 100 MLS/HR Objective Vital Signs Date Time Temp Pulse Resp B/P Pulse Ox O2 Delivery O2 Flow Rate FiO2 10/15/16 07:40 Room Air 10/15/16 07:35 36.5 85 16 121/82 99 Room Air 10/14/16 23:50 Room Air 10/14/16 22:50 36.8 92 18 144/86 96 Room Air 10/14/16 15:55 Room Air 10/14/16 15:09 37.0 87 18 140/89 99 Room Air Physical Exam General Appearance: no apparent distress, + obese Respiratory/Chest: no respiratory distress, no accessory muscle use Abdomen: normal bowel sounds, soft, + tenderness Laboratory Results Last 24 Hours Test 10/15/16 07:10 White Blood Count 4.99 K/uL Red Blood Count 4.18 M/uL Hemoglobin 10.9 g/dL Hematocrit 34.1 % Mean Corpuscular Volume 81.6 fL Mean Corpuscular Hemoglobin 26.1 pg Mean Corpuscular Hemoglobin Concent 32.0 g/dl RDW Standard Deviation 60.8 fL RDW Coefficient of Variation 20.1 % Platelet Count 196 K/uL Mean Platelet Volume 10.4 fL Sodium Level 142 mmol/L Potassium Level 3.5 mmol/L Chloride Level 107 mmol/L Carbon Dioxide Level 29 mmol/L Anion Gap 6.0 mmol/L Blood Urea Nitrogen 3 mg/dl Creatinine 0.67 mg/dl Est Creatinine Clear Calc Drug Dose 181.5 ml/min Estimated GFR () 138.6 Estimated GFR (Non- 119.6 BUN/Creatinine Ratio 4.3 Random Glucose 106 mg/dl Calcium Level 8.6 mg/dl Total Bilirubin 0.6 mg/dl Aspartate Amino Transf (AST/SGOT) 77 U/L Alanine Aminotransferase (ALT/SGPT) 97 U/L Alkaline Phosphatase 61 U/L Total Protein 6.4 gm/dl Albumin 2.9 gm/dl Globulin 3.5 gm/dl Albumin/Globulin Ratio 0.8 Lipase 1416 U/L Assessment and Plan This is a 26 year old female with a PMH of obesity, uterine fibroid, recurrent pancreatitis, esophagitis/gastritis, fatty liver - presents with recurrent pancreatitis Recurrent Gallstone Pancreatitis 10/15 lipase trending down to ~ 1000 full liquid diet, advance as tolerated plan to d/c home today 10/14 s/p lap carley POD #3 her discharged canceled due to elevated lipase to >4000 lipase trending down to ~ 1000 no epigastric tenderness appreciate gen surg input NPO, IVFs, advance diet as per general surgery try to avoid Percocet due to possible spasm of Oddi issues continue Tramadol PRN, Dilaudid for breakthrough 10/13 s/p lap carley, POD #2; tolerating PO intake, no n/v/d plan is to d/c home one week f/u with general surgery follow-up with primary care next week will d/c home with Percocet and Tramadol PRN 10/12 patient presented with elevated lipase, and mildly elevated LFTs EUS performed showing gallbladder sludge appreciate GI input general surgery consulted as well, appreciate management; s/p lap carley on 10/11 patient's epigastric pain has improved some residual pain at site of surgery tolerated PO intake (regular breakfast) further management as per general surgery lipase trending down from > 2000 to ~ 700; LFTs trending down discharge to home on 10/13 Sinus Tachycardia - resolved likely secondary to pain CT chest negative for PE Obesity spoke to patient about weight loss she will likely need a nutritional consultation as an outpatient to come up with a diet plan DVT ppx ambulation, SCDs
[2016-10-15 15:06] VITALS: BP 145/97; PULSE 95; TEMP 36.7; O2SAT 98
[2016-10-15 16:23] VITALS: BP 145/97; PULSE 95; TEMP 36.7; O2SAT 98
[2016-11-22] MEDS ORDERED: ULT50X PO (17:48)
[2016-12-09] MEDS ORDERED: METO-157 PO (08:58)
== END 2016-10-15 17:45 | disposition home or self-care (01) | DRG 418 ==
LOC: ENRESERVDT → ENRESERVTM → C.EDB 14:38 → C.2T 17:01 → OBSVTOIN 10-11 15:08 → EDBEDREQSVC 10-12 13:20 → C.MSW 10-12 14:24
PROVIDERS: ADMIT Hospitalist; ATTEND Family Medicine
PROC: 0DJ08ZZ Inspection of Upper Intestinal Tract, Via Natural or Artificial Opening Endoscopic (ICD-10-PCS; 2016-10-11)
PROC: 0FT44ZZ Resection of Gallbladder, Percutaneous Endoscopic Approach (ICD-10-PCS; principal; 2016-10-11 07:30)
DX: K80.10 Calculus of gallbladder with chronic cholecystitis without obstruction (principal); Z68.43 Body mass index [BMI] 50.0-59.9, adult; K76.0 Fatty (change of) liver, not elsewhere classified; K82.8 Other specified diseases of gallbladder; K44.9 Diaphragmatic hernia without obstruction or gangrene; F32.9 Major depressive disorder, single episode, unspecified; E66.01 Morbid (severe) obesity due to excess calories; Z79.3 Long term (current) use of hormonal contraceptives; Z87.19 Personal history of other diseases of the digestive system; Z88.8 Allergy status to other drugs, medicaments and biological substances; Z83.3 Family history of diabetes mellitus; Z82.49 Family history of ischemic heart disease and other diseases of the circulatory system; Z84.1 Family history of disorders of kidney and ureter

== ENCOUNTER 2016-11-19 13:55 | Inpatient (IN) | payer BC ==
[~2016-11-19] VITALS: Ht 167.6 cm; Wt 136.8 kg
[~2016-11-19 13:55] MED LIST changes: +CHOL100010 PO; +CYAN100073 PO; +MISCCAP80 PO; +MULT-506 PO; +OXYC-57 PO; +ULT50X PO
[2016-11-19] MEDS ORDERED: PROMETHAZINE HCL INJ 25 MG in SODIUM CHLORIDE 0.9% 50ML 50 ML IV STA (14:14)
[2016-11-19] MEDS ORDERED: HYDROmorphone INJ 1 MG/ML SYR IV STA (14:14)
--- NOTE | 2016-11-19 14:27 | EMERGENCY ROOM VISIT NOTE ---
History First contact with patient: 14:04 Chief Complaint: ABDOMINAL PAIN Stated Complaint: VOMITING, SEVERE ABD. PAIN Nursing Triage Summary: pt c/o nause and vomiting for 3 hours. abdominal pain radiates from right side of abdomen to back. History of Present Illness The patient is a 26 year old female who presents to the Emergency Room with complaints of upper abdominal pain and vomiting. The patient states that approximately 3 hours ago she developed nausea, vomiting and upper abdominal pain. She states the pain is in the upper abdomen and radiates to the back. The patient rates her discomfort a 9/10. The patient was admitted twice this year for what seemed to be a gallstone pancreatitis. She has done well since her cholecystectomy. The patient denies any fevers. She denies any pain in her chest or trouble breathing. She does state that the upper back pain is new. She states that she does have some pain with deep inspiration. She denies any dysuric emergency, frequency or hematuria. She denies any vaginal bleeding or discharge. Review of Systems A 10 system review of systems was completed with positives and pertinent negatives listed in the HPI. Past Medical/Surgical History Medical Problems: (1) Abdominal pain (2) Abnormal vaginal bleeding (3) Acute pancreatitis (4) Depression (5) Elevated bilirubin (6) Gastritis (7) Morbid obesity (8) Uterine fibroid (9) Uterine fibroid Surgical Problems: (1) History of esophagogastroduodenoscopy (EGD) Family History Diabetes mellitus Heart disease Hypertension Kidney disease Kidney stones Social History Smoking Status: Never Smoker Alcohol Use: occasionally Drug Use: none Marital Status: single Housing Status: lives alone 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 Current/Historical Medications Scheduled Ranitidine (Zantac), 150 MG PO BID Scheduled PRN Lorazepam (Ativan), 0.5 MG PO TID PRN for Anxiety Oxycodone/Acetaminophen 5MG/325MG (Percocet 5MG/325MG), 1 TABLET PO Q4H PRN for Pain Allergies Coded Allergies: Ondansetron (Verified Allergy, Unknown, lip tingling, 10/11/16) Morphine (Verified Adverse Reaction, Intermediate, ITCHINESS, 10/11/16) Physical Exam Vital Signs Date Time Temp Pulse Resp B/P (MAP) Pulse Ox O2 Delivery O2 Flow Rate FiO2 11/19/16 19:00 108 18 156/93 93 Room Air 11/19/16 16:54 110 18 151/97 99 11/19/16 15:59 114 18 105/103 98 Room Air 11/19/16 15:59 115 18 150/103 99 Room Air 11/19/16 14:01 36.8 133 20 144/77 98 Room Air Physical Exam VITALS: Vitals are noted on the nurse's note and reviewed by myself. Vital signs stable. GENERAL: This is a 26-year-old female, in no acute distress, nondiaphoretic, well-developed well-nourished. SKIN: The skin was without rashes, erythema, edema, or bruising. There is no tenting of the skin. Capillary reflex less than 2 seconds. HEAD: Normocephalic atraumatic. EARS: The external ears are normal in appearance EYES: Pupils equal round and reactive to light and accommodation. Conjunctivae without injection, sclerae without icterus. Extraocular movements intact. NOSE: Patent, turbinates without inflammation or discharge. No sinus tenderness. MOUTH: Mucous membranes moist. Tonsils are not enlarged. Pharynx without erythema or exudate. Uvula midline. Airway patent. Tongue does not deviate. NECK: Supple without nuchal rigidity. No lymphadenopathy. No thyromegaly. Cervical spine is nontender. No JVD. HEART: Regular rate and rhythm without murmurs gallops or rubs. LUNGS: Clear to auscultation bilaterally without wheezes, rales or rhonchi. No retractions or accessory muscle use. ABDOMEN: Positive bowel sounds x 4. Soft, marked diffuse tenderness, worse in the upper abdomen, without masses or organomegaly. There is no CVA tenderness. MUSCULOSKELETAL: No muscle atrophy, erythema, or edema noted. Full range of motion in all extremities. Normal gait. Strength 5/5 throughout. NEURO: Patient was alert and oriented to person place and time. No focal neurological deficits. Medical Decision & Procedures ER Provider Diagnostic Interpretation: [~ rep ct add3]] CT SCAN OF THE ABDOMEN AND PELVIS WITH IV CONTRAST CLINICAL HISTORY: Epigastric abdominal pain. COMPARISON STUDY: Abdominal CT scans dated 09/24/2016 and 08/31/2016. TECHNIQUE: Following the IV administration of 119 cc of Optiray 320, CT scan of the abdomen and pelvis is performed from the lung bases to the proximal femora. Images are reviewed in the axial, sagittal, and coronal planes. IV contrast was administered without complication. Automated dose control exposure was utilized. The examination is degraded by large body habitus, and by streak artifact from the body wall abutting the CT gantry. CT DOSE: 2904.41 mGy.cm FINDINGS: Lung bases: The heart is normal in size and without pericardial effusion. The lung bases are clear. There is a tiny hiatal hernia. Liver: The contrast-enhanced liver is enlarged, measuring 20.6 cm in length. The liver demonstrates diffusely diminished attenuation consistent with severe hepatic steatosis. There is no intrahepatic biliary ductal dilatation. The hepatic veins and portal veins are patent. Gallbladder: Surgically absent noting clips in the gallbladder fossa. Spleen: Normal in size and attenuation. Pancreas: The pancreas is normal in appearance and enhances homogeneously. The splenic vein is patent. There is no peripancreatic stranding or fluid. Adrenal glands: Unremarkable. Kidneys: The contrast enhanced kidneys are normal in size and without hydronephrosis. The kidneys enhance symmetrically. Abdominal vasculature: The abdominal aorta is normal in course and caliber. Bowel: The small bowel and colon are normal in course and caliber. The appendix is well-visualized and normal. Peritoneum: There is no intraperitoneal free air or abdominal ascites. Induration within the supraumbilical pannus is likely related to a recent laparoscopy port. Lymphadenopathy: None. Pelvic viscera: The bladder, uterus, and adnexa are normal as visualized. There are bilateral ovarian follicles. Skeletal structures: No lytic or blastic lesions are seen. Mild sclerotic change is noted in the sacroiliac joints. IMPRESSION: 1. There are no acute infectious or inflammatory findings in the abdomen or pelvis. 2. Hepatomegaly and severe hepatic steatosis. 3. There is evidence of interval cholecystectomy as compared to 09/24/2016. CT ANGIOGRAM OF THE CHEST CLINICAL HISTORY: Atypical chest pain. COMPARISON STUDY: Chest CT dated 10/07/2016. Chest x-ray dated 11/19/2016. TECHNIQUE: Following the IV administration of 119 cc of Optiray 320, CT angiogram of the chest was performed from the upper abdomen to the thoracic inlet utilizing the pulmonary embolus protocol. Images are reviewed in the axial, sagittal, and coronal planes. 3-D MIPS images are created and assessed. IV contrast was administered without complication. The examination is degraded by large body habitus, and by streak artifact from the body wall abutting the CT gantry. CT DOSE: Reported separately under the concurrently performed CT scan of the abdomen and pelvis. FINDINGS: Thyroid: Imaged portions of the thyroid gland are normal in size and attenuation. Thoracic aorta: The thoracic aorta is normal in caliber and demonstrates standard 3-vessel arch anatomy. No dissection is seen. Pulmonary vasculature: The pulmonary trunk is normal in caliber. There are no filling defects identified in main, lobar, or proximal segmental pulmonary branches to suggest pulmonary embolus. Evaluation of the distal vessels is degraded by suboptimal contrast opacification. Heart: The heart is normal in size and configuration, and without pericardial effusion. Lungs and pleural spaces: The lungs and pleural spaces are clear. The trachea and central airways are patent. Mediastinum: There is no mediastinal lymphadenopathy. Hellen: Clear. Axillae: There is no axillary lymphadenopathy. Upper abdomen: The liver is enlarged and steatotic. Cholecystectomy clips are noted. There is a tiny hiatal hernia. Skeletal structures: No lytic or blastic bony lesions are seen. IMPRESSION: 1. There is no evidence of pulmonary embolus in the main, lobar, or proximal segmental pulmonary arteries. 2. The lungs are clear. 3. Hepatomegaly and severe hepatic steatosis. CHEST ONE VIEW PORTABLE CLINICAL HISTORY: Upper abdominal pain. COMPARISON STUDY: Chest CT October 07, 2016. FINDINGS: This exam is compromised by suboptimal penetration related to portable technique and body habitus. The lungs are clear. There is no pneumothorax or pleural effusion. Cardiac size is normal. Mediastinal contours are normal. IMPRESSION: No acute cardiopulmonary findings. Laboratory Results 11/19/16 15:15 Red Blood Count 5.27, Mean Corpuscular Volume 81.0, Mean Corpuscular Hemoglobin 26.2, Mean Corpuscular Hemoglobin Concent 32.3, Mean Platelet Volume 10.1, Neutrophils (%) (Auto) 64.0, Lymphocytes (%) (Auto) 29.3, Monocytes (%) (Auto) 6.0, Eosinophils (%) (Auto) 0.0, Basophils (%) (Auto) 0.5, Neutrophils # (Auto) 4.06, Lymphocytes # (Auto) 1.86, Monocytes # (Auto) 0.38, Eosinophils # (Auto) 0.00, Basophils # (Auto) 0.03 11/19/16 15:15 Test 11/19/16 15:15 6/30/17 19:35 White Blood Count 6.34 K/uL (4.8-10.8) Red Blood Count 5.27 M/uL (4.2-5.4) Hemoglobin 13.8 g/dL (12.0-16.0) Hematocrit 42.7 % (37-47) Mean Corpuscular Volume 81.0 fL (80-100) Mean Corpuscular Hemoglobin 26.2 pg (25-34) Mean Corpuscular Hemoglobin Concent 32.3 g/dl (32-36) Platelet Count 404 K/uL (130-400) Mean Platelet Volume 10.1 fL (7.4-10.4) Neutrophils (%) (Auto) 64.0 % Lymphocytes (%) (Auto) 29.3 % Monocytes (%) (Auto) 6.0 % Eosinophils (%) (Auto) 0.0 % Basophils (%) (Auto) 0.5 % Neutrophils # (Auto) 4.06 K/uL (1.4-6.5) Lymphocytes # (Auto) 1.86 K/uL (1.2-3.4) Monocytes # (Auto) 0.38 K/uL (0.11-0.59) Eosinophils # (Auto) 0.00 K/uL (0-0.5) Basophils # (Auto) 0.03 K/uL (0-0.2) RDW Standard Deviation 62.5 fL (36.4-46.3) RDW Coefficient of Variation 21.0 % (11.5-14.5) Immature Granulocyte % (Auto) 0.2 % Immature Granulocyte # (Auto) 0.01 K/uL (0.00-0.02) Anisocytosis PRESENT Tear Drop Cells 1+ Prothrombin Time 10.8 SECONDS (9.0-12.0) Prothromb Time International Ratio 1.0 (0.9-1.1) Activated Partial Thromboplast Time 23.0 SECONDS (21.0-31.0) Partial Thromboplastin Ratio 0.9 Anion Gap 17.0 mmol/L (3-11) Est Creatinine Clear Calc Drug Dose 118.4 ml/min Estimated GFR () 88.8 Estimated GFR (Non- 76.6 BUN/Creatinine Ratio 5.9 (10-20) Calcium Level 9.4 mg/dl (8.5-10.1) Magnesium Level 2.3 mg/dl (1.8-2.4) Total Bilirubin 0.8 mg/dl (0.2-1) Aspartate Amino Transf (AST/SGOT) 72 U/L (15-37) Alanine Aminotransferase (ALT/SGPT) 50 U/L (12-78) Alkaline Phosphatase 111 U/L (45-117) Troponin I < 0.015 ng/ml (0-0.045) Total Protein 9.4 gm/dl (6.4-8.2) Albumin 4.3 gm/dl (3.4-5.0) Globulin 5.1 gm/dl (2.5-4.0) Albumin/Globulin Ratio 0.8 (0.9-2) Lipase 538 U/L (73-393) Chemistry Specimen Hemolysis Urine Color YELLOW Urine Appearance CLEAR (CLEAR) Urine pH 5.0 (4.5-7.5) Urine Specific [place] > 1.045 (1.000-1.030) Urine Protein TRACE (NEG) Urine Glucose (UA) NEG (NEG) Urine Ketones 3+ (NEG) Urine Occult Blood NEG (NEG) Urine Nitrite NEG (NEG) Urine Bilirubin NEG (NEG) Urine Urobilinogen NEG (NEG) Urine Leukocyte Esterase NEG (NEG) Urine WBC (Auto) 10-30 /hpf (0-5) Urine RBC (Auto) 5-10 /hpf (0-4) Urine Hyaline Casts (Auto) 1-5 /lpf (0-5) Urine Epithelial Cells (Auto) >30 /lpf (0-5) Urine Bacteria (Auto) 2+ (NEG) Urine Renal Epithelial Cells 5-10 /lpf (0-5) Urine Pathogenic Casts /lpf (0) Urine Test NEG (NEG) Medications Administered Medications (Trade) Dose Ordered Sig/[place]lin Route Start Time Stop Time Status Last Admin Dose Admin Hydromorphone HCl (Dilaudid Inj) 1 mg NOW STAT IV 11/19/16 14:14 11/19/16 14:16 DC 11/19/16 15:44 1 MG Promethazine HCl 25 mg/Sodium Chloride 51 ml @ 204 mls/hr NOW STAT IV 11/19/16 14:14 11/19/16 14:28 DC 11/19/16 15:44 204 MLS/HR Hydromorphone HCl (Dilaudid Inj) 0.5 mg NOW STAT IV 11/19/16 16:12 11/19/16 16:13 DC 11/19/16 16:12 0.5 MG Sodium Chloride 1,000 ml @ 999 mls/hr Q1H1M STAT IV 11/19/16 16:43 11/19/16 17:43 DC 11/19/16 16:43 999 MLS/HR Hydromorphone HCl (Dilaudid Inj) 0.5 mg NOW STAT IV 11/19/16 19:13 11/19/16 19:14 DC 11/19/16 19:13 0.5 MG Sodium Chloride 1,000 ml @ 250 mls/hr Q4H STAT IV 11/19/16 19:20 11/19/16 20:32 DC 11/19/16 19:20 250 MLS/HR Tramadol HCl (Ultram Tab) not relieved by tylenol @ Q6H PRN PO 11/19/16 19:45 12/19/16 19:44 11/19/16 21:51 50 MG Metoclopramide HCl (Reglan Inj) 10 mg Q6H PRN IV 11/19/16 19:45 12/19/16 19:44 11/19/16 21:54 10 MG Dextrose (Dextrose 50% 50ML Syringe) 50 ml NOW ONCE IV 11/19/16 20:00 11/19/16 20:02 DC 11/19/16 20:17 50 ML Lactated Ringer's 1,000 ml @ 200 mls/hr Q5H IV 11/19/16 20:30 11/20/16 08:29 11/19/16 21:51 200 MLS/HR Procedure The patient was monitored on a manager global. She did have persistent tachycardia. ECG Indication: abdominal pain Rate (beats per minute): 115 Rhythm: sinus tachycardia Findings: no acute ischemic change Change: no significant change ED Course The patient was seen and examined. Previous visits were reviewed. The patient does not have a fever or leukocytosis. She does not have any significant electrolyte abnormality. AST is mildly elevated at 72. ALT and alkaline phosphatase were within normal limits. Troponin was not elevated. Lipase is elevated at 538. INR is 1.0. The patient was hydrated with normal saline 2 L She was given Phenergan and 1 mg IV Dilaudid but her pain persisted She was given 0.5 mg IV Dilaudid and she was resting more comfortably but still rated her pain an 8/10 She was given a third dose, 0.5 mg IV Dilaudid, and still complained of discomfort The patient presents to the emergency department with 3 hours of upper abdominal pain, nausea and vomiting. She does have a history of pancreatitis, secondary to gallstones. Her lipase is elevated at 538. It had been as high as 4000 last month. This could represent a recurrence of the pancreatitis. CT scan of the abdomen and pelvis reveals hepatic steatosis but no abnormality of the pancreas. There is no obvious kidney stone. Given the fact that the patient had some pleuritic upper back pain which was new , a d-dimer was obtained and was elevated. She underwent CTA of the chest which was negative for pulmonary embolus. The patient was unable to provide a urine sample until after disposition. Upon review of the urinalysis does reveal 2+ ketones and possible infection versus contamination. This could potentially represent a pyelonephritis. Given the fact that the patient is having intractable pain, nausea, vomiting and has had pancreatitis in the recent past and has an elevated lipase today, the patient would benefit from further evaluation and management in the hospital. [facility] and they will evaluate the patient. The case was discussed with Dr. Andres who agrees with the assessment and management plan. Medical Decision DIFFERENTIAL DIAGNOSIS: Hepatitis, cholecystitis, cholangitis, biliary colic, pancreatitis, pneumonia, subdiaphragmatic abscess, appendicitis, inguinal hernia , nephrolithiasis, inflammatory bowel disease, mesenteric adenitis, peptic ulcer disease, GERD, gastritis, pancreatitis, myocardial infarction, pericarditis, ruptured aortic aneurysm, appendicitis, gastroenteritis, bowel obstruction, splenic infarct, diverticulitis, mesenteric ischemia, metabolic, peritonitis, among others. Impression Primary Impression: Acute pancreatitis Additional Impressions: Intractable abdominal pain Intractable nausea and vomiting Departure Information Dispostion Admitted as an inpatient Referrals Logan Tsai, Grazyna.O. (PCP) Patient Instructions [facility] Problem Qualifiers
--- NOTE | 2016-11-19 14:46 | DIAGNOSTIC IMAGING REPORT ---
CHEST ONE VIEW PORTABLE CLINICAL HISTORY: Upper abdominal pain. COMPARISON STUDY: Chest CT October 07, 2016. FINDINGS: This exam is compromised by suboptimal penetration related to portable technique and body habitus. The lungs are clear. There is no pneumothorax or pleural effusion. Cardiac size is normal. Mediastinal contours are normal. IMPRESSION: No acute cardiopulmonary findings. Electronically signed by: Kadeem Fuentes M.D. 11/19/2016 2:44 PM Dictated Date/Time: 11/19/2016 2:44 PM
[2016-11-19] MEDS ORDERED: LORA-741 PO (14:57)
[2016-11-19] MEDS ORDERED: ZNTT/150 PO (14:57)
[2016-11-19 15:23] LABS: BASO % 0.5 %; BASO ABS # 0.03 K/uL (0-0.2); HEMATOCRIT 42.7 % (37-47); IG% 0.2 %; LYMPH % 29.3 %; LYMPH ABS # 1.86 K/uL (1.2-3.4); MEAN CORPUSCULAR HEMOGLOBIN 26.2 pg (25-34); MEAN CORPUSCULAR HGB CONC 32.3 g/dl (32-36); MEAN PLATELET VOLUME 10.1 fL (7.4-10.4); PLATELET COUNT 404 K/uL (130-400); RED BLOOD COUNT 5.27 M/uL (4.2-5.4); WHITE BLOOD COUNT 6.34 K/uL (4.8-10.8)
[2016-11-19 15:37] LABS: PARTIAL THROMBOPLASTIN RATIO 0.9; PROTHROMBIN TIME (PATIENT) 10.8 SECONDS (9.0-12.0)
[2016-11-19 15:43] LABS: BUN/CREATININE RATIO 5.9 (10-20); CALCIUM 9.4 mg/dl (8.5-10.1); POTASSIUM 4.5 mmol/L (3.5-5.1)
[2016-11-19 15:45] LABS: ALB/GLOB RATIO 0.8 (0.9-2)
[2016-11-19 15:54] LABS: ANISOCYTOSIS PRESENT; COMPLETE YES; TEAR DROP CELLS 1+
[2016-11-19] MEDS ORDERED: HYDROmorphone INJ 0.5 MG/0.5 ML SYR IV STA ×2 (16:12→19:13)
[2016-11-19] MEDS ORDERED: SODIUM CHLORIDE 0.9% 1000ML 1,000 ML IV STA ×2 (16:43→19:20)
[2016-11-19] MEDS ORDERED: OPTIRAY 320 IV PRN (18:00)
--- NOTE | 2016-11-19 19:01 | DIAGNOSTIC IMAGING REPORT ---
CT SCAN OF THE ABDOMEN AND PELVIS WITH IV CONTRAST CLINICAL HISTORY: Epigastric abdominal pain. COMPARISON STUDY: Abdominal CT scans dated 09/24/2016 and 08/31/2016. TECHNIQUE: Following the IV administration of 119 cc of Optiray 320, CT scan of the abdomen and pelvis is performed from the lung bases to the proximal femora. Images are reviewed in the axial, sagittal, and coronal planes. IV contrast was administered without complication. Automated dose control exposure was utilized. The examination is degraded by large body habitus, and by streak artifact from the body wall abutting the CT gantry. CT DOSE: 2904.41 mGy.cm FINDINGS: Lung bases: The heart is normal in size and without pericardial effusion. The lung bases are clear. There is a tiny hiatal hernia. Liver: The contrast-enhanced liver is enlarged, measuring 20.6 cm in length. The liver demonstrates diffusely diminished attenuation consistent with severe hepatic steatosis. There is no intrahepatic biliary ductal dilatation. The hepatic veins and portal veins are patent. Gallbladder: Surgically absent noting clips in the gallbladder fossa. Spleen: Normal in size and attenuation. Pancreas: The pancreas is normal in appearance and enhances homogeneously. The splenic vein is patent. There is no peripancreatic stranding or fluid. Adrenal glands: Unremarkable. Kidneys: The contrast enhanced kidneys are normal in size and without hydronephrosis. The kidneys enhance symmetrically. Abdominal vasculature: The abdominal aorta is normal in course and caliber. Bowel: The small bowel and colon are normal in course and caliber. The appendix is well-visualized and normal. Peritoneum: There is no intraperitoneal free air or abdominal ascites. Induration within the supraumbilical pannus is likely related to a recent laparoscopy port. Lymphadenopathy: None. Pelvic viscera: The bladder, uterus, and adnexa are normal as visualized. There are bilateral ovarian follicles. Skeletal structures: No lytic or blastic lesions are seen. Mild sclerotic change is noted in the sacroiliac joints. IMPRESSION: 1. There are no acute infectious or inflammatory findings in the abdomen or pelvis. 2. Hepatomegaly and severe hepatic steatosis. 3. There is evidence of interval cholecystectomy as compared to 09/24/2016. Electronically signed by: Mathew Calero M.D. 11/19/2016 6:59 PM Dictated Date/Time: 11/19/2016 6:53 PM
--- NOTE | 2016-11-19 19:07 | DIAGNOSTIC IMAGING REPORT ---
CT ANGIOGRAM OF THE CHEST CLINICAL HISTORY: Atypical chest pain. COMPARISON STUDY: Chest CT dated 10/07/2016. Chest x-ray dated 11/19/2016. TECHNIQUE: Following the IV administration of 119 cc of Optiray 320, CT angiogram of the chest was performed from the upper abdomen to the thoracic inlet utilizing the pulmonary embolus protocol. Images are reviewed in the axial, sagittal, and coronal planes. 3-D MIPS images are created and assessed. IV contrast was administered without complication. The examination is degraded by large body habitus, and by streak artifact from the body wall abutting the CT gantry. CT DOSE: Reported separately under the concurrently performed CT scan of the abdomen and pelvis. FINDINGS: Thyroid: Imaged portions of the thyroid gland are normal in size and attenuation. Thoracic aorta: The thoracic aorta is normal in caliber and demonstrates standard 3-vessel arch anatomy. No dissection is seen. Pulmonary vasculature: The pulmonary trunk is normal in caliber. There are no filling defects identified in main, lobar, or proximal segmental pulmonary branches to suggest pulmonary embolus. Evaluation of the distal vessels is degraded by suboptimal contrast opacification. Heart: The heart is normal in size and configuration, and without pericardial effusion. Lungs and pleural spaces: The lungs and pleural spaces are clear. The trachea and central airways are patent. Mediastinum: There is no mediastinal lymphadenopathy. Hellen: Clear. Axillae: There is no axillary lymphadenopathy. Upper abdomen: The liver is enlarged and steatotic. Cholecystectomy clips are noted. There is a tiny hiatal hernia. Skeletal structures: No lytic or blastic bony lesions are seen. IMPRESSION: 1. There is no evidence of pulmonary embolus in the main, lobar, or proximal segmental pulmonary arteries. 2. The lungs are clear. 3. Hepatomegaly and severe hepatic steatosis. Electronically signed by: Mathew Calero M.D. 11/19/2016 7:05 PM Dictated Date/Time: 11/19/2016 7:02 PM
[2016-11-19] MEDS ORDERED: PROMETHAZINE HCL INJ 12.5 MG in SODIUM CHLORIDE 0.9% 50ML 50 ML IV PRN (19:45)
[2016-11-19 19:54] LABS: URINE APPEARANCE CLEAR (CLEAR); URINE BILIRUBIN NEG (NEG); URINE COLOR YELLOW; URINE EPITHELIAL CELL AUTO >30 /lpf (0-5); URINE NITRITE NEG (NEG); URINE SPECIFIC GRAVITY > 1.045 (1.000-1.030); UROBILINOGEN NEG (NEG); ZZUR CULT IF INDIC CLEAN CATCH YES
[2016-11-19 19:58] LABS: MANUAL MICROSCOPIC REQUIRED? NO; REVIEW REQ? YES
[2016-11-19] MEDS ORDERED: DEXTROSE 50% 50 ML SYR IV ONE (20:00)
[2016-11-19 20:13] LABS: MAGNESIUM 2.3 mg/dl (1.8-2.4)
[2016-11-19 21:05] VITALS: O2SAT 100
--- NOTE | 2016-11-19 21:08 | History and Physical ---
History & Physical Date & Time of Service: Nov 19, 2016 at 21:08 Chief Complaint: Vomiting, Severe Abd. Pain Primary Care Physician: Logan Tsai D.O. History of Present Illness Source: patient, clinic records, hospital records Recent confinement last September 2016 for gallstone pancreatitis patient underwent cholecystectomy. A few weeks later patient was in [facility] when she thought she had another episode of PANCREATITIS, spontaneously resolving. Patient was in [place] last few days for a conference. Admits to fatty food and alcohol intake, Patient had just returned to [place] this morning. This afternoon patient had recurrence off epigastric pain going to the back achy reminiscent of pancreatitis episodes. She had nausea and emesis, good bowel movement. Transient left-sided chest pain. Patient admits to some bladder discomfort. No fever no chills. Intractable pain in the emergency room. Past Medical/Surgical History Medical Problems: (1) Abnormal vaginal bleeding Status: Resolved (2) Depression Status: Chronic (3) Gastritis Status: Chronic (4) Morbid obesity Status: Chronic (5) Uterine fibroid Status: Resolved (6) Uterine fibroid Status: Chronic recurrent pancreatitis Surgical Problems: (1) History of esophagogastroduodenoscopy (EGD) Permanent Comment: 09/01/16- - [place] Grade B reflux esophagitis Status: Chronic cholecystectomy Family History Diabetes mellitus Heart disease Hypertension Kidney disease Kidney stones pancreatitis Social History Smoking Status: Never Smoker Alcohol Use: occasionally Drug Use: none Marital Status: single Housing status: lives alone 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, 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) Allergies Coded Allergies: Ondansetron (Verified Allergy, Unknown, lip tingling, 10/11/16) Morphine (Verified Adverse Reaction, Intermediate, ITCHINESS, 10/11/16) Home Medications Scheduled Ranitidine (Zantac), 150 MG PO BID Scheduled PRN Lorazepam (Ativan), 0.5 MG PO TID PRN for Anxiety Oxycodone/Acetaminophen 5MG/325MG (Percocet 5MG/325MG), 1 TABLET PO Q4H PRN for Pain Review of Systems as per HPI, all other ROS negative Physical Exam Vital Signs Date Time Temp Pulse Resp B/P (MAP) Pulse Ox O2 Delivery O2 Flow Rate FiO2 11/19/16 21:05 36.8 114 18 154/89 100 11/19/16 21:03 114 18 154/89 100 11/19/16 19:00 108 18 156/93 93 Room Air 11/19/16 16:54 110 18 151/97 99 11/19/16 15:59 114 18 105/103 98 Room Air 11/19/16 15:59 115 18 150/103 99 Room Air 11/19/16 14:01 36.8 133 20 144/77 98 Room Air General Appearance: + obese, + pertinent finding (slightly anxious) Head: normocephalic Eyes: normal inspection ENT: + pertinent finding (pale palpebral conjunctivae, dry buccal mucosa) Neck: + pertinent finding (short) Respiratory/Chest: lungs clear, + pertinent finding Cardiovascular: + tachycardia Abdomen/GI: + tenderness, + pertinent finding (epigastric) Extremities/Musculoskelatal: no calf tenderness Neurologic/Psych: oriented x 3 Skin: + pallor Diagnostics Laboratory Results Results Past 24 Hours Test 11/19/16 15:15 11/19/16 19:35 Range/Units White Blood Count 6.34 4.8-10.8 K/uL Red Blood Count 5.27 4.2-5.4 M/uL Hemoglobin 13.8 12.0-16.0 g/dL Hematocrit 42.7 37-47 % Mean Corpuscular Volume 81.0 80-100 fL Mean Corpuscular Hemoglobin 26.2 25-34 pg Mean Corpuscular Hemoglobin Concent 32.3 32-36 g/dl Platelet Count 404 130-400 K/uL Mean Platelet Volume 10.1 7.4-10.4 fL Neutrophils (%) (Auto) 64.0 % Lymphocytes (%) (Auto) 29.3 % Monocytes (%) (Auto) 6.0 % Eosinophils (%) (Auto) 0.0 % Basophils (%) (Auto) 0.5 % Neutrophils # (Auto) 4.06 1.4-6.5 K/uL Lymphocytes # (Auto) 1.86 1.2-3.4 K/uL Monocytes # (Auto) 0.38 0.11-0.59 K/uL Eosinophils # (Auto) 0.00 0-0.5 K/uL Basophils # (Auto) 0.03 0-0.2 K/uL RDW Standard Deviation 62.5 36.4-46.3 fL RDW Coefficient of Variation 21.0 11.5-14.5 % Immature Granulocyte % (Auto) 0.2 % Immature Granulocyte # (Auto) 0.01 0.00-0.02 K/uL Anisocytosis PRESENT Tear Drop Cells 1+ Prothrombin Time 10.8 9.0-12.0 SECONDS Prothromb Time International Ratio 1.0 0.9-1.1 Activated Partial Thromboplast Time 23.0 21.0-31.0 SECONDS Partial Thromboplastin Ratio 0.9 Sodium Level 140 136-145 mmol/L Potassium Level 4.5 3.5-5.1 mmol/L Chloride Level 105 98-107 mmol/L Carbon Dioxide Level 18 21-32 mmol/L Anion Gap 17.0 3-11 mmol/L Blood Urea Nitrogen 6 7-18 mg/dl Creatinine 1.00 0.60-1.20 mg/dl Est Creatinine Clear Calc Drug Dose 118.4 ml/min Estimated GFR () 88.8 Estimated GFR (Non- 76.6 BUN/Creatinine Ratio 5.9 10-20 Random Glucose 66 70-99 mg/dl Calcium Level 9.4 8.5-10.1 mg/dl Magnesium Level 2.3 1.8-2.4 mg/dl Total Bilirubin 0.8 0.2-1 mg/dl Aspartate Amino Transf (AST/SGOT) 72 15-37 U/L Alanine Aminotransferase (ALT/SGPT) 50 12-78 U/L Alkaline Phosphatase 111 45-117 U/L Troponin I < 0.015 0-0.045 ng/ml Total Protein 9.4 6.4-8.2 gm/dl Albumin 4.3 3.4-5.0 gm/dl Globulin 5.1 2.5-4.0 gm/dl Albumin/Globulin Ratio 0.8 0.9-2 Lipase 538 73-393 U/L Chemistry Specimen Hemolysis Urine Color YELLOW Urine Appearance CLEAR CLEAR Urine pH 5.0 4.5-7.5 Urine Specific [place] > 1.045 1.000-1.030 Urine Protein TRACE NEG Urine Glucose (UA) NEG NEG Urine Ketones 3+ NEG Urine Occult Blood NEG NEG Urine Nitrite NEG NEG Urine Bilirubin NEG NEG Urine Urobilinogen NEG NEG Urine Leukocyte Esterase NEG NEG Urine WBC (Auto) 10-30 0-5 /hpf Urine RBC (Auto) 5-10 0-4 /hpf Urine Hyaline Casts (Auto) 1-5 0-5 /lpf Urine Epithelial Cells (Auto) >30 0-5 /lpf Urine Bacteria (Auto) 2+ NEG Urine Renal Epithelial Cells 5-10 0-5 /lpf Urine Pathogenic Casts 0 /lpf Urine Test NEG NEG Microbiology Results 11/19/16 Urine Culture, Received Pending Diagnostic Radiology CT chest no PE CT abdomen and pelvis : fatty liver EKG As per my read : Rate 115 sinus tachycardia, :PRWP Impression Assessment and Plan AP Abdominal pain Multi-factorial Recurrent pancreatitis, history gallstone pancreatitis status post recent cholecystectomy, recent travel with alcohol and fatty food consumption UTI, no sepsis Situational hypertension chronic anemia, hemoglobin better than baseline likely from hemoconcentration GMF Analgesia antiemetics IV fluids Follow lipase Bowel rest GI consult if with worsening abdominal pain and progression of lipase levels Follow urine cultures, IV ceftriaxone DVT prophylaxis Lovenox subcutaneous Full code VTE Prophylaxis VTE Risk Assessment Done? Y/N: Yes Risk Level: Moderate
[2016-11-19 21:30] VITALS: BP 131/102; PULSE 105; TEMP 37; Ht 167.6 cm; Wt 136.8 kg
[2016-11-19] MEDS ORDERED: HYDROmorphone INJ 0.5 MG/0.5 ML SYR IV PRN (21:30)
[2016-11-19] MEDS ORDERED: LORAZEPAM 0.5 MG TAB PO PRN (21:30)
[2016-11-19] MEDS ORDERED: RANITIDINE HCL 150 MG TAB PO ONE (21:30)
[2016-11-19] MEDS ORDERED: OXYCODONE/ACETAMINOPHEN 5-325 TAB PO PRN (21:30)
[2016-11-19] MEDS ORDERED: LORAZEPAM 0.5 MG TAB PO ONE (21:45)
[2016-11-19] MEDS: LACTATED RINGER'S 1000ML 1,000 ML IV SCH (21:51)
[2016-11-19] MEDS: TRAMADOL HCL 50 MG TAB PO PRN (21:51)
[2016-11-19] MEDS: METOCLOPRAMIDE HCL INJ 5 MG/ML 2 ML VIAL IV PRN (21:54)
[2016-11-19] MEDS: ENOXAPARIN 40 MG/0.4 ML SYR SQ SCH (22:00)
[2016-11-19] MEDS: KETOROLAC TROMETHAMINE 30 MG/ML VIAL IV PRN (22:20)
[2016-11-19] MEDS: CEFTRIAXONE SOD INJ 1 GM in DEXTROSE 5% ADD-VANTAGE 50ML 50 ML IV SCH (23:02)
[2016-11-19 23:41] VITALS: BP 147/82; PULSE 99; TEMP 36.7; O2SAT 98
[2016-11-20] MEDS: LACTATED RINGER'S 1000ML 1,000 ML IV SCH ×5 (02:22→21:23)
[2016-11-20 05:48] LABS: BASO % 0.6 %; BASO ABS # 0.03 K/uL (0-0.2); EOS % 0.9 %; HEMATOCRIT 36.8 % (37-47); IG% 0.2 %; LYMPH % 40.8 %; LYMPH ABS # 1.91 K/uL (1.2-3.4); MEAN CELL VOLUME 82.7 fL (80-100); MEAN CORPUSCULAR HEMOGLOBIN 25.6 pg (25-34); MEAN PLATELET VOLUME 9.9 fL (7.4-10.4); NEUT % 45.5 %; PLATELET COUNT 314 K/uL (130-400); RED BLOOD COUNT 4.45 M/uL (4.2-5.4); WHITE BLOOD COUNT 4.68 K/uL (4.8-10.8)
[2016-11-20] MEDS: KETOROLAC TROMETHAMINE 30 MG/ML VIAL IV PRN ×2 (06:03→14:30)
[2016-11-20] MEDS: METOCLOPRAMIDE HCL INJ 5 MG/ML 2 ML VIAL IV PRN (06:03)
[2016-11-20 06:21] LABS: ANISOCYTOSIS PRESENT; COMPLETE YES
[2016-11-20 06:26] LABS: BUN/CREATININE RATIO 3.8 (10-20); CALCIUM 8.5 mg/dl (8.5-10.1); CREATININE 0.81 mg/dl (0.60-1.20); POTASSIUM 3.8 mmol/L (3.5-5.1)
[2016-11-20 06:30] LABS: ALB/GLOB RATIO 0.9 (0.9-2)
[2016-11-20] MEDS ORDERED: LORAZEPAM 2 MG/ML 1 ML VIAL IV PRN (06:45)
[2016-11-20] MEDS ORDERED: THIAMINE HCL INJ 100 MG in SYRINGE 9 ML IV ONE (07:00)
[2016-11-20] MEDS ORDERED: LORAZEPAM INJ 0.5 MG in SYRINGE 0.75 ML IV PRN (07:00)
[2016-11-20] MEDS ORDERED: DEXTROSE 50% 50 ML SYR IV ONE (07:10)
[2016-11-20 07:43] VITALS: BP 185/87; PULSE 94; TEMP 37; O2SAT 99
[2016-11-20] MEDS: RANITIDINE HCL 150 MG TAB PO SCH ×2 (07:47→20:01)
[2016-11-20] MEDS: MULTIVITAMIN TAB PO SCH (07:47)
[2016-11-20] MEDS: TRAMADOL HCL 50 MG TAB PO PRN ×2 (08:02→20:01)
[2016-11-20] MEDS ORDERED: NURSING VERBAL MED ORDER ONE ×2 (09:30→11:30)
[2016-11-20 11:38] VITALS: BP 159/105; PULSE 96; TEMP 37; O2SAT 96
[2016-11-20] MEDS ORDERED: HydrALAZINE HCL 20 MG/ML VIAL ONE (11:40)
[2016-11-20] MEDS ORDERED: HydrALAZINE HCL 20 MG/ML VIAL IV. PRN (11:45)
[2016-11-20 12:16] VITALS: BP 149/86; PULSE 87; O2SAT 99
--- NOTE | 2016-11-20 14:35 | Gastrointestinal Consultation ---
Gastrointestinal Consultation Date of Consultation: Nov 20, 2016 Consulting Physician: Brady Damon M.D. Reason for Consultation: Abdominal Pain and possible pancreatitis History of Present Illness Patient is a 26 year old female who I was asked to consult on because of abdominal pain. She has been having severe bouts of upper and epigastric abdominal pain and work up in September let to an EUS by Dr. Lai finding gallbladder stones/sludge. She had a lap carley in September. She has continued to have episodes of upper abdominal pain. The pain is sharp and stabbing in nature with radiation to both the right and left side. She has no nausea or vomiting, no rectal bleeding, no fever no rashes. She states the pain is similar to her symptoms from September. She has been traveling and has been drinking more ETOH than "usual". Currently she is feeling better and eating a full clear diet with issue. Past Medical/Surgical History Medical Problems: (1) Dehydration Status: Acute (2) Intractable abdominal pain Status: Acute (3) Intractable abdominal pain Status: Acute (4) Intractable nausea and vomiting Status: Acute (5) Pancreatic mass Status: Acute (6) Pancreatitis Status: Acute (7) Pancreatitis Status: Acute Surgical Problems: (1) History of esophagogastroduodenoscopy (EGD) Permanent Comment: 09/01/16- - [place] Grade B reflux esophagitis Status: Chronic Past Surgical History: S/P lap carley 09/2016 Family History Diabetes mellitus Heart disease Hypertension Kidney disease Kidney stones Social History Smoking Status: Never Smoker Alcohol Use: occasionally (may occasional binge drink) Drug Use: none Marital Status: single Housing Status: lives alone 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, 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) Allergies Coded Allergies: Ondansetron (Verified Allergy, Unknown, lip tingling, 10/11/16) Morphine (Verified Adverse Reaction, Intermediate, ITCHINESS, 10/11/16) Current Medications Home Meds and Scripts Medications Dose Route/Sig Max Daily Dose Days Date Category Ativan (Lorazepam) 0.5 Mg Tab 0.5 Mg PO TID PRN 11/19/16 Reported Zantac (Ranitidine HCl) 150 Mg Tab 150 Mg PO BID 11/19/16 Reported Percocet 5MG/325MG (Oxycodone/Acetaminophen) Tab 1 Tablet PO Q4H PRN 10/12/16 Rx Review of Systems Constitutional: No fever, No chills, No sweats, No weight loss, No weakness, No fatigue Eyes: No worsening of vision, No eye pain, No redness, No discharge, No diplopia ENT: No hearing loss, No unusual epistaxis, No nasal symptoms, No sore throat, No tinnitus, No dental problems, No trouble swallowing, No pain on swallowing Respiratory: No cough, No sputum, No wheezing, No shortness of breath, No dyspnea on exertion, No dyspnea at rest, No hemoptysis Cardiac: No chest pain, No orthopnea, No PND, No edema, No claudication, No palpitations Abdomen: + see HPI Musculoskeletal: No joint pain, No muscle pain, No swelling, No calf pain Female : No dysuria, No urinary frequency, No hematuria Neuro: No memory loss, No paralysis, No weakness, No numbness/tingling, No balance problems Psych: No depression symptoms Heme: No abnormal bleeding/bruising, No clotting problems, No swollen lymph nodes, No night sweats Endo: No fatigue, No excessive thirst, No excessive urination Skin: No rash, No itch, No new/changing skin lesions, No color change, No bleeding, No jaundice Physical Exam Date Time Temp Pulse Resp B/P (MAP) Pulse Ox O2 Delivery O2 Flow Rate FiO2 11/20/16 12:16 87 149/86 (107) 99 11/20/16 11:38 37.0 96 18 159/105 (123) 96 Room Air 11/20/16 08:00 Room Air 11/20/16 07:43 37.0 94 20 185/87 (119) 99 Room Air 11/20/16 00:00 Room Air 11/19/16 23:41 36.7 99 20 147/82 (103) 98 Room Air 11/19/16 21:30 37.0 105 20 131/102 Room Air 11/19/16 21:05 36.8 114 18 154/89 100 11/19/16 21:03 114 18 154/89 100 11/19/16 19:00 108 18 156/93 93 Room Air 11/19/16 16:54 110 18 151/97 99 11/19/16 15:59 114 18 105/103 98 Room Air 11/19/16 15:59 115 18 150/103 99 Room Air General Appearance: no apparent distress, + obese Eyes: normal inspection ENT: hearing grossly normal, pharynx normal Neck: supple, no adenopathy Respiratory/Chest: chest non-tender, normal breath sounds Cardiovascular: regular rate, rhythm, no edema Abdomen: normal bowel sounds, soft, no organomegaly, no pulsatile mass, + tenderness (in the upper epigastric region but no rebound) Extremities: normal range of motion, non-tender, no pedal edema Neurologic/Psych: alert, normal mood/affect, oriented x 3 Skin: normal color, no jaundice, warm/dry Laboratory Results Last 24 Hours Test 11/19/16 15:15 11/19/16 19:35 11/20/16 05:22 White Blood Count 6.34 K/uL 4.68 K/uL Red Blood Count 5.27 M/uL 4.45 M/uL Hemoglobin 13.8 g/dL 11.4 g/dL Hematocrit 42.7 % 36.8 % Mean Corpuscular Volume 81.0 fL 82.7 fL Mean Corpuscular Hemoglobin 26.2 pg 25.6 pg Mean Corpuscular Hemoglobin Concent 32.3 g/dl 31.0 g/dl Platelet Count 404 K/uL 314 K/uL Mean Platelet Volume 10.1 fL 9.9 fL Neutrophils (%) (Auto) 64.0 % 45.5 % Lymphocytes (%) (Auto) 29.3 % 40.8 % Monocytes (%) (Auto) 6.0 % 12.0 % Eosinophils (%) (Auto) 0.0 % 0.9 % Basophils (%) (Auto) 0.5 % 0.6 % Neutrophils # (Auto) 4.06 K/uL 2.13 K/uL Lymphocytes # (Auto) 1.86 K/uL 1.91 K/uL Monocytes # (Auto) 0.38 K/uL 0.56 K/uL Eosinophils # (Auto) 0.00 K/uL 0.04 K/uL Basophils # (Auto) 0.03 K/uL 0.03 K/uL RDW Standard Deviation 62.5 fL 63.0 fL RDW Coefficient of Variation 21.0 % 20.8 % Immature Granulocyte % (Auto) 0.2 % 0.2 % Immature Granulocyte # (Auto) 0.01 K/uL 0.01 K/uL Anisocytosis PRESENT PRESENT Tear Drop Cells 1+ Prothrombin Time 10.8 SECONDS Prothromb Time International Ratio 1.0 Activated Partial Thromboplast Time 23.0 SECONDS Partial Thromboplastin Ratio 0.9 Sodium Level 140 mmol/L 142 mmol/L Potassium Level 4.5 mmol/L 3.8 mmol/L Chloride Level 105 mmol/L 108 mmol/L Carbon Dioxide Level 18 mmol/L 21 mmol/L Anion Gap 17.0 mmol/L 13.0 mmol/L Blood Urea Nitrogen 6 mg/dl 3 mg/dl Creatinine 1.00 mg/dl 0.81 mg/dl Est Creatinine Clear Calc Drug Dose 118.4 ml/min 147.4 ml/min Estimated GFR () 88.8 114.6 Estimated GFR (Non- 76.6 98.8 BUN/Creatinine Ratio 5.9 3.8 Random Glucose 66 mg/dl 61 mg/dl Calcium Level 9.4 mg/dl 8.5 mg/dl Magnesium Level 2.3 mg/dl Total Bilirubin 0.8 mg/dl 1.2 mg/dl Aspartate Amino Transf (AST/SGOT) 72 U/L 50 U/L Alanine Aminotransferase (ALT/SGPT) 50 U/L 36 U/L Alkaline Phosphatase 111 U/L 85 U/L Troponin I < 0.015 ng/ml Total Protein 9.4 gm/dl 7.3 gm/dl Albumin 4.3 gm/dl 3.4 gm/dl Globulin 5.1 gm/dl 3.9 gm/dl Albumin/Globulin Ratio 0.8 0.9 Lipase 538 U/L 674 U/L Chemistry Specimen Hemolysis Urine Color YELLOW Urine Appearance CLEAR Urine pH 5.0 Urine Specific [place] > 1.045 Urine Protein TRACE Urine Glucose (UA) NEG Urine Ketones 3+ Urine Occult Blood NEG Urine Nitrite NEG Urine Bilirubin NEG Urine Urobilinogen NEG Urine Leukocyte Esterase NEG Urine WBC (Auto) 10-30 /hpf Urine RBC (Auto) 5-10 /hpf Urine Hyaline Casts (Auto) 1-5 /lpf Urine Epithelial Cells (Auto) >30 /lpf Urine Bacteria (Auto) 2+ Urine Renal Epithelial Cells 5-10 /lpf Urine Pathogenic Casts /lpf Urine Test NEG Impression Patient is a 26 year old female with abdominal pain and abnormal imaging of the liver showing fatty liver. There is no pancreatic inflammation. Her lipase is not 2-3 times upper limit of normal and given the CT scan, I do not think she has pancreatitis. She certainly does have fatty liver and the liver enzymes support this as well. Her pain may be from healing of her recent lap carley. I do not think she has ulcer disease given normal upper endoscopy in September 2016. This also could be functional. Plan I would advance diet slowly as you are doing. I do not recommend any endoscopy at this time. Minimize narcotics. As an out patient she should follow up with her regular gastroenterology providers; Dr. Lai or his [facility] TECHNICIAN. As far as her fatty liver, her weight is the biggest issue and weight loss will help. I also would encourage her to minimize her ETOH use.
[2016-11-20 15:16] VITALS: BP 136/85; PULSE 96; TEMP 36.5; O2SAT 100
--- NOTE | 2016-11-20 19:11 | Progress Note ---
Internal Med Progress Note Date of Service: Nov 20, 2016. Provider Documentation: SUBJECTIVE: have abdominal pain and tenderness no nausea tolerating clears OBJECTIVE: Vital Signs-as noted below Exam: General-no sign of distress Eyes-sclera non icteric Lungs-CTA Heart-regular S1/S2 Abdomen-soft, + epigastric tenderness Extremities-+ 1 lower ext edema Neuro-AAO x3, no focal deficit Lab data as noted below. ASSESSMENT & PLAN: Abdominal pain/recurrent pancreatitis Multi-factorial Recurrent pancreatitis, history gallstone pancreatitis status post recent cholecystectomy, recent travel with alcohol and fatty food consumption CT abdomen /pelvis : 1. There are no acute infectious or inflammatory findings in the abdomen or pelvis. 2. Hepatomegaly and severe hepatic steatosis. 3. There is evidence of interval cholecystectomy as compared to 09/24/2016. IV fluids Follow lipase tolerating clears GI eval requested -appreciate input UTI, no sepsis cont IV Rocephin follow urine culture Situational hypertension possible due to pain and anxiety pain control PRN Ativan IV hydralazine 10 mg Q 8hrs PRN SBP > 160 Full code DVT PROPHYLAXIS Lovenox subcutaneous DISPOSITION expected to be discharged home when medically stable Vital Signs: Date Time Temp Pulse Resp B/P (MAP) Pulse Ox O2 Delivery O2 Flow Rate FiO2 11/21/16 07:16 36.5 99 16 136/89 (105) 99 Room Air 11/21/16 00:00 Room Air 11/21/16 00:00 36.5 84 20 140/96 (111) 99 Room Air 11/20/16 21:03 Room Air 11/20/16 15:45 Room Air 11/20/16 15:16 36.5 96 18 136/85 (102) 100 Room Air 11/20/16 12:16 87 149/86 (107) 99 11/20/16 11:38 37.0 96 18 159/105 (123) 96 Room Air 11/20/16 08:00 Room Air 11/20/16 07:43 37.0 94 20 185/87 (119) 99 Room Air Lab Results: Results Past 24 Hours Test 11/21/16 04:50 Range/Units Sodium Level 137 136-145 mmol/L Potassium Level 4.0 3.5-5.1 mmol/L Chloride Level 103 98-107 mmol/L Carbon Dioxide Level 26 21-32 mmol/L Anion Gap 8.0 3-11 mmol/L Blood Urea Nitrogen 1 7-18 mg/dl Creatinine 0.57 0.60-1.20 mg/dl Est Creatinine Clear Calc Drug Dose 209.4 ml/min Estimated GFR () 146.2 Estimated GFR (Non- 126.2 BUN/Creatinine Ratio 2.3 10-20 Random Glucose 79 70-99 mg/dl Calcium Level 8.5 8.5-10.1 mg/dl Total Bilirubin 1.2 0.2-1 mg/dl Aspartate Amino Transf (AST/SGOT) 47 15-37 U/L Alanine Aminotransferase (ALT/SGPT) 34 12-78 U/L Alkaline Phosphatase 75 45-117 U/L Total Protein 6.6 6.4-8.2 gm/dl Albumin 3.0 3.4-5.0 gm/dl Globulin 3.6 2.5-4.0 gm/dl Albumin/Globulin Ratio 0.8 0.9-2 Lipase 414 73-393 U/L
[2016-11-20] MEDS: CEFTRIAXONE SOD INJ 1 GM in DEXTROSE 5% ADD-VANTAGE 50ML 50 ML IV SCH (21:23)
[2016-11-20] MEDS: ENOXAPARIN 40 MG/0.4 ML SYR SQ SCH (21:25)
[2016-11-21] VITALS: BP 140/96; PULSE 84; TEMP 36.5; O2SAT 99
[2016-11-21] MEDS: LACTATED RINGER'S 1000ML 1,000 ML IV SCH (05:16)
[2016-11-21 05:29] LABS: BUN/CREATININE RATIO 2.3 (10-20); CALCIUM 8.5 mg/dl (8.5-10.1); CREATININE 0.57 mg/dl (0.60-1.20)
[2016-11-21 05:31] LABS: ALB/GLOB RATIO 0.8 (0.9-2)
[2016-11-21 07:16] VITALS: BP 136/89; PULSE 99; TEMP 36.5; O2SAT 99
[2016-11-21] MEDS: RANITIDINE HCL 150 MG TAB PO SCH ×2 (08:05→19:51)
[2016-11-21] MEDS: THIAMINE HCL 100 MG TAB PO SCH (08:06)
[2016-11-21] MEDS: MULTIVITAMIN TAB PO SCH (08:06)
[2016-11-21] MEDS: TRAMADOL HCL 50 MG TAB PO PRN ×3 (08:07→22:54)
[2016-11-21] MEDS: METOCLOPRAMIDE HCL INJ 5 MG/ML 2 ML VIAL IV PRN (08:08)
[2016-11-21] MEDS ORDERED: CIPROFLOXACIN 250 MG TAB PO SCH (09:00)
[2016-11-21 15:14] VITALS: BP 127/83; PULSE 97; TEMP 37.1; O2SAT 100
--- NOTE | 2016-11-21 17:48 | Progress Note ---
Internal Med Progress Note Date of Service: Nov 21, 2016. Provider Documentation: SUBJECTIVE: diet advanced to low fat diet tolerating well no nausea has minimum abdominal pain OBJECTIVE: Vital Signs-as noted below Exam: General-no sign of distress Eyes-sclera non icteric Lungs-CTA Heart-regular S1/S2 Abdomen-soft, + epigastric tenderness Extremities-+ 1 lower ext edema Neuro-AAO x3, no focal deficit Lab data as noted below. ASSESSMENT & PLAN: Abdominal pain/recurrent pancreatitis symptom has improved tolerating solid Recurrent pancreatitis, history gallstone pancreatitis status post recent cholecystectomy, recent travel with alcohol and fatty food consumption CT abdomen /pelvis : 1. There are no acute infectious or inflammatory findings in the abdomen or pelvis. 2. Hepatomegaly and severe hepatic steatosis. 3. There is evidence of interval cholecystectomy as compared to 09/24/2016. symptom resolved with bowel rest lipase level improved tolerating solid diet GI eval requested -appreciate input possible discharge home tomorrow out pt follow up with [facility] + UA no evidence of UTI denies of any urinary symptom D/c Abx urine culture -pin point growth Situational hypertension due to pain and anxiety pain control PRN Ativan BP remains stable Full code DVT PROPHYLAXIS Lovenox subcutaneous DISPOSITION possible discharged home tomorrow medicine follow up with Dr Quintana Vital Signs: Date Time Temp Pulse Resp B/P (MAP) Pulse Ox O2 Delivery O2 Flow Rate FiO2 11/21/16 15:20 Room Air 11/21/16 15:14 37.1 97 18 127/83 (98) 100 Room Air 11/21/16 08:00 Room Air 11/21/16 07:16 36.5 99 16 136/89 (105) 99 Room Air 11/21/16 00:00 Room Air 11/21/16 00:00 36.5 84 20 140/96 (111) 99 Room Air 11/20/16 21:03 Room Air Lab Results: Results Past 24 Hours Test 11/21/16 04:50 Range/Units Sodium Level 137 136-145 mmol/L Potassium Level 4.0 3.5-5.1 mmol/L Chloride Level 103 98-107 mmol/L Carbon Dioxide Level 26 21-32 mmol/L Anion Gap 8.0 3-11 mmol/L Blood Urea Nitrogen 1 7-18 mg/dl Creatinine 0.57 0.60-1.20 mg/dl Est Creatinine Clear Calc Drug Dose 209.4 ml/min Estimated GFR () 146.2 Estimated GFR (Non- 126.2 BUN/Creatinine Ratio 2.3 10-20 Random Glucose 79 70-99 mg/dl Calcium Level 8.5 8.5-10.1 mg/dl Total Bilirubin 1.2 0.2-1 mg/dl Aspartate Amino Transf (AST/SGOT) 47 15-37 U/L Alanine Aminotransferase (ALT/SGPT) 34 12-78 U/L Alkaline Phosphatase 75 45-117 U/L Total Protein 6.6 6.4-8.2 gm/dl Albumin 3.0 3.4-5.0 gm/dl Globulin 3.6 2.5-4.0 gm/dl Albumin/Globulin Ratio 0.8 0.9-2 Lipase 414 73-393 U/L
--- NOTE | 2016-11-21 17:55 | Discharge Instructions ---
Discharge Instructions Date of Service Nov 21, 2016. Admission Reason for Admission: Acute Pancreatitis Discharge Discharge Diagnosis / Problem: RECURRENT PANCREATITIS Discharge Goals Goal(s): Decrease discomfort, Improve disease control, Diagnostic testing Activity Recommendations Activity Limitations: resume your previous activity . Instructions / Follow-Up Instructions / Follow-Up HOSPITAL FOLLOW UP ON 11/29/2016 @ 1:[address] Logan Tsai DO [facility] GASTROENTEROLOGY FOLLOW UP ON 11/29/2016 @ 3:00 PM WITH RITA Baumann Gastroenterology, [facility] NEED TO QUIT DRINKING ALCOHOL COMPLETELY CONTINUE LOW FAT DIET Current Hospital Diet Patient's current hospital diet: Low Fat Diet Discharge Diet Recommended Diet: Low Fat Diet Pending Studies Studies pending at discharge: no Laboratory Results Lipid Panel Test 08/31/16 07:02 Range/Units Triglycerides Level 122 0-150 mg/dl Cholesterol Level 191 0-200 mg/dl HDL Cholesterol 77 mg/dl Cholesterol/HDL Ratio 2.5 LDL Cholesterol, Calculated 90 mg/dl Medical Emergencies . Who to Call and When: Medical Emergencies: If at any time you feel your situation is an emergency, please call 911 immediately. . Non-Emergent Contact Non-Emergency issues call your: Primary Care Provider . . "Provider Documentation" section prepared by Lacy Muñoz. . VTE Core Measure Inpt VTE Proph given/why not?: Enoxaparin (Lovenox)SQ
[2016-11-21] MEDS: KETOROLAC TROMETHAMINE 30 MG/ML VIAL IV PRN (19:52)
[2016-11-21] MEDS: ENOXAPARIN 40 MG/0.4 ML SYR SQ SCH (22:26)
[2016-11-21 23:03] VITALS: BP 148/110; PULSE 100; TEMP 36.9; O2SAT 97
[2016-11-21 23:37] VITALS: BP 147/95
[2016-11-22 07:11] VITALS: BP 147/93; PULSE 85; TEMP 36.6; O2SAT 98
[2016-11-22] MEDS: TRAMADOL HCL 50 MG TAB PO PRN (07:24)
[2016-11-22] MEDS: MULTIVITAMIN TAB PO SCH (07:25)
[2016-11-22] MEDS: RANITIDINE HCL 150 MG TAB PO SCH (07:25)
[2016-11-22] MEDS: THIAMINE HCL 100 MG TAB PO SCH (07:25)
--- NOTE | 2016-11-22 14:35 | Progress Note ---
Medicine Progress Note Date & Time of Visit: Nov 22, 2016 at 14:22. Subjective Pt was seen and examined Lying in bed with no distress Pt said that the abdominal pain improved She has been tolerated her diet She has not had a BM yet denies any fever, palpitation, chills, SOB and Chest pain Objective Last 8 Hrs Date Time Temp Pulse Resp B/P (MAP) Pulse Ox O2 Delivery O2 Flow Rate FiO2 11/22/16 08:00 Room Air 11/22/16 07:11 36.6 85 16 147/93 (111) 98 Room Air Physical Exam: General- No acute distress, obese Head- atraumatic Eyes- PERRL, EOMI ENT- oropharynx clear Neck- supple, no JVD Lungs- clear to auscultation Heart- regular rhythm; no murmur Abdomen- normal bowel sounds, +tender Extremities- no calf tenderness Neuro- alert, oriented x 3; PERRL, EOMI; no facial palsy Skin- warm & dry Laboratory Results: Last 24 Hours Test 11/22/16 05:17 Lipase 587 U/L Assessment & Plan Abdominal pain/recurrent pancreatitis Recurrent pancreatitis, history gallstone pancreatitis status post recent cholecystectomy, recent travel with alcohol and fatty food consumption symptom has improved Has been tolerating low fat diet Lipase slightly elevated Possible discharge home today Follow up with GI as an outpatient CT abdomen /pelvis showed: 1. There are no acute infectious or inflammatory findings in the abdomen or pelvis. 2. Hepatomegaly and severe hepatic steatosis. 3. There is evidence of interval cholecystectomy as compared to 09/24/2016. Abnormal UA denies of any urinary symptom urine culture -pin point growth Abx was d/michaela Situational Hypertension due to pain and anxiety pain control PRN Ativan BP remains stable Full code DVT PROPHYLAXIS Lovenox subcutaneous DISPOSITION possible discharged home today medicine follow up with Dr Quintana Consultants: Gastro Current Inpatient Medications: Current Inpatient Medications Medications (Trade) Dose Ordered Sig/Marlin Route Start Time Stop Time Status Last Admin Dose Admin Ioversol (Optiray 320) 100 ml UD PRN IV 11/19/16 18:00 11/23/16 17:59 Ketorolac Tromethamine (Toradol Inj) 30 mg Q6H PRN IV 11/19/16 19:45 11/24/16 19:44 11/21/16 19:52 30 MG Tramadol HCl (Ultram Tab) not relieved by tylenol @ Q6H PRN PO 11/19/16 19:45 12/19/16 19:44 11/22/16 07:24 50 MG Promethazine HCl 12.5 mg/Sodium Chloride 50.5 ml @ 204 mls/hr Q6H PRN IV 11/19/16 19:45 12/19/16 19:44 11/19/16 23:03 204 MLS/HR Metoclopramide HCl (Reglan Inj) 10 mg Q6H PRN IV 11/19/16 19:45 12/19/16 19:44 11/21/16 08:08 10 MG Enoxaparin Sodium (Lovenox Inj) 40 mg Q24H SQ 11/19/16 22:00 12/19/16 21:59 11/21/16 22:26 40 MG Hydromorphone HCl (Dilaudid Inj) 0.5 mg Q6H PRN IV 11/19/16 21:30 12/03/16 21:29 11/20/16 21:24 0.5 MG Lorazepam (Ativan Tab) 0.5 mg TID PRN PO 11/19/16 21:30 12/19/16 21:29 Oxycodone/ Acetaminophen (Percocet 5-325mg Tab) `1-2 tabs for pain 1 tab ... Q4H PRN PO 11/19/16 21:30 12/03/16 21:29 11/21/16 02:07 2 TAB Ranitidine HCl (zANTac TAB) 150 mg BID PO 11/20/16 08:00 12/20/16 07:59 11/22/16 07:25 150 MG Thiamine HCl (Vitamin B-1 Tab) 100 mg QAM PO 11/21/16 08:00 12/21/16 07:59 11/22/16 07:25 100 MG Multivitamins (Multivitamin Tab) 1 tab QAM PO 11/20/16 08:00 12/20/16 07:59 11/22/16 07:25 1 TAB Folic Acid (Folvite Tab) 1 mg QAM PO 11/20/16 08:00 12/20/16 07:59 11/22/16 07:25 1 MG Lorazepam (Ativan Inj) 0.5 mg Q4H PRN IV 11/20/16 06:45 12/20/16 06:44 Lorazepam 0.5 mg/ Syringe 1 ml @ 1 mls/min Q4H PRN IV 11/20/16 07:00 12/20/16 06:59 Hydralazine HCl (HydrALAZINE INJ) 10 mg Q8H PRN IV. 11/20/16 11:45 12/20/16 11:44
[2016-11-22 14:39] VITALS: BP 144/91; PULSE 91; TEMP 37.4; O2SAT 99
[2016-11-22 17:18] VITALS: BP 144/91; PULSE 91; TEMP 37.4; O2SAT 99
[2016-11-22] MEDS ORDERED: ULT50X PO (17:48)
--- NOTE | 2016-11-23 16:43 | Discharge Summary ---
Discharge Summary Date of Service Nov 23, 2016. Discharge Summary Admission Date: Nov 19, 2016 at 20:30 Discharge Date: Nov 22, 2016 Discharge Disposition: Home Principal Diagnosis: Recurrent pancreatitis Secondary Diagnoses/Problems: Abnormal UA Situational Hypertension Procedures: CT SCAN OF THE ABDOMEN AND PELVIS WITH IV CONTRAST CLINICAL HISTORY: Epigastric abdominal pain. COMPARISON STUDY: Abdominal CT scans dated 09/24/2016 and 08/31/2016. TECHNIQUE: Following the IV administration of 119 cc of Optiray 320, CT scan of the abdomen and pelvis is performed from the lung bases to the proximal femora. Images are reviewed in the axial, sagittal, and coronal planes. IV contrast was administered without complication. Automated dose control exposure was utilized. The examination is degraded by large body habitus, and by streak artifact from the body wall abutting the CT gantry. CT DOSE: 2904.41 mGy.cm FINDINGS: Lung bases: The heart is normal in size and without pericardial effusion. The lung bases are clear. There is a tiny hiatal hernia. Liver: The contrast-enhanced liver is enlarged, measuring 20.6 cm in length. The liver demonstrates diffusely diminished attenuation consistent with severe hepatic steatosis. There is no intrahepatic biliary ductal dilatation. The hepatic veins and portal veins are patent. Gallbladder: Surgically absent noting clips in the gallbladder fossa. Spleen: Normal in size and attenuation. Pancreas: The pancreas is normal in appearance and enhances homogeneously. The splenic vein is patent. There is no peripancreatic stranding or fluid. Adrenal glands: Unremarkable. Kidneys: The contrast enhanced kidneys are normal in size and without hydronephrosis. The kidneys enhance symmetrically. Abdominal vasculature: The abdominal aorta is normal in course and caliber. Bowel: The small bowel and colon are normal in course and caliber. The appendix is well-visualized and normal. Peritoneum: There is no intraperitoneal free air or abdominal ascites. Induration within the supraumbilical pannus is likely related to a recent laparoscopy port. Lymphadenopathy: None. Pelvic viscera: The bladder, uterus, and adnexa are normal as visualized. There are bilateral ovarian follicles. Skeletal structures: No lytic or blastic lesions are seen. Mild sclerotic change is noted in the sacroiliac joints. IMPRESSION: 1. There are no acute infectious or inflammatory findings in the abdomen or pelvis. 2. Hepatomegaly and severe hepatic steatosis. 3. There is evidence of interval cholecystectomy as compared to 09/24/2016. Electronically signed by: Mathew Calero M.D. 11/19/2016 6:59 PM Dictated Date/Time: 11/19/2016 6:[address] ANGIOGRAM OF THE CHEST CLINICAL HISTORY: Atypical chest pain. COMPARISON STUDY: Chest CT dated 10/07/2016. Chest x-ray dated 11/19/2016. TECHNIQUE: Following the IV administration of 119 cc of Optiray 320, CT angiogram of the chest was performed from the upper abdomen to the thoracic inlet utilizing the pulmonary embolus protocol. Images are reviewed in the axial, sagittal, and coronal planes. 3-D MIPS images are created and assessed. IV contrast was administered without complication. The examination is degraded by large body habitus, and by streak artifact from the body wall abutting the CT gantry. CT DOSE: Reported separately under the concurrently performed CT scan of the abdomen and pelvis. FINDINGS: Thyroid: Imaged portions of the thyroid gland are normal in size and attenuation. Thoracic aorta: The thoracic aorta is normal in caliber and demonstrates standard 3-vessel arch anatomy. No dissection is seen. Pulmonary vasculature: The pulmonary trunk is normal in caliber. There are no filling defects identified in main, lobar, or proximal segmental pulmonary branches to suggest pulmonary embolus. Evaluation of the distal vessels is degraded by suboptimal contrast opacification. Heart: The heart is normal in size and configuration, and without pericardial effusion. Lungs and pleural spaces: The lungs and pleural spaces are clear. The trachea and central airways are patent. Mediastinum: There is no mediastinal lymphadenopathy. Hellen: Clear. Axillae: There is no axillary lymphadenopathy. Upper abdomen: The liver is enlarged and steatotic. Cholecystectomy clips are noted. There is a tiny hiatal hernia. Skeletal structures: No lytic or blastic bony lesions are seen. IMPRESSION: 1. There is no evidence of pulmonary embolus in the main, lobar, or proximal segmental pulmonary arteries. 2. The lungs are clear. 3. Hepatomegaly and severe hepatic steatosis. Electronically signed by: Mathew Calero M.D. 11/19/2016 7:05 PM Dictated Date/Time: 11/19/2016 7:02 PM CHEST ONE VIEW PORTABLE CLINICAL HISTORY: Upper abdominal pain. COMPARISON STUDY: Chest CT October 07, 2016. FINDINGS: This exam is compromised by suboptimal penetration related to portable technique and body habitus. The lungs are clear. There is no pneumothorax or pleural effusion. Cardiac size is normal. Mediastinal contours are normal. IMPRESSION: No acute cardiopulmonary findings. Electronically signed by: Kadeem Fuentes M.D. 11/19/2016 2:44 PM Dictated Date/Time: 11/19/2016 2:44 PM Consultations: Gastro Medication Reconciliation New Medications: Tramadol HCl (Tramadol HCl) 50 Mg Tab 50 MG PO Q8 PRN for Pain for 5 Days, #15 TAB Continued Medications: Lorazepam (Ativan) 0.5 Mg Tab 0.5 MG PO TID PRN for Anxiety Ranitidine (Zantac) 150 Mg Tab 150 MG PO BID Discontinued Medications: Oxycodone/Acetaminophen 5MG/325MG (Percocet 5MG/325MG) Tab 1 TABLET PO Q4H PRN for Pain, #18 TAB Admission Information HPI (per Admitting provider): Recent confinement last September 2016 for gallstone pancreatitis patient underwent cholecystectomy. A few weeks later patient was in [facility] when she thought she had another episode of PANCREATITIS, spontaneously resolving. Patient was in [place] last few days for a conference. Admits to fatty food and alcohol intake, Patient had just returned to [place] this morning. This afternoon patient had recurrence off epigastric pain going to the back achy reminiscent of pancreatitis episodes. She had nausea and emesis, good bowel movement. Transient left-sided chest pain. Patient admits to some bladder discomfort. No fever no chills. Intractable pain in the emergency room. Physical Exam (per Admitting): General Appearance: + obese, + pertinent finding (slightly anxious) Head: normocephalic Eyes: normal inspection ENT: + pertinent finding (pale palpebral conjunctivae, dry buccal mucosa) Neck: + pertinent finding (short) Respiratory/Chest: lungs clear, + pertinent finding Cardiovascular: + tachycardia Abdomen/GI: + tenderness, + pertinent finding (epigastric) Extremities/Musculoskelatal: no calf tenderness Neurologic/Psych: oriented x 3 Skin: + pallor Hospital Course Abdominal pain/recurrent pancreatitis Recurrent pancreatitis, history gallstone pancreatitis status post recent cholecystectomy, recent travel with alcohol and fatty food consumption symptom has improved Has been tolerating low fat diet Lipase slightly elevated Possible discharge home today Follow up with GI as an outpatient CT abdomen /pelvis showed: 1. There are no acute infectious or inflammatory findings in the abdomen or pelvis. 2. Hepatomegaly and severe hepatic steatosis. 3. There is evidence of interval cholecystectomy as compared to 09/24/2016. Abnormal UA denies of any urinary symptom urine culture -pin point growth Abx was d/michaela Situational Hypertension due to pain and anxiety pain control PRN Ativan BP remains stable Full code DVT PROPHYLAXIS Lovenox subcutaneous DISPOSITION possible discharged home today medicine follow up with Dr Quintana Total time spent on discharge = 35 MINUTES This includes examination of the patient, discharge planning, medication reconciliation, and communication with other providers. Discharge Instructions Discharge Instructions Date of Service Nov 21, 2016. Admission Reason for Admission: Acute Pancreatitis Discharge Discharge Diagnosis / Problem: RECURRENT PANCREATITIS Discharge Goals Goal(s): Decrease discomfort, Improve disease control, Diagnostic testing Activity Recommendations Activity Limitations: resume your previous activity . Instructions / Follow-Up Instructions / Follow-Up HOSPITAL FOLLOW UP ON 11/29/2016 @ 1:[address] Logan Quintana DO [facility] GASTROENTEROLOGY FOLLOW UP ON 11/29/2016 @ 3:00 PM WITH RITA Baumann Gastroenterology, [facility] NEED TO QUIT DRINKING ALCOHOL COMPLETELY CONTINUE LOW FAT DIET Current Hospital Diet Patient's current hospital diet: Low Fat Diet Discharge Diet Recommended Diet: Low Fat Diet Pending Studies Studies pending at discharge: no Laboratory Results Lipid Panel Test 08/31/16 07:02 Range/Units Triglycerides Level 122 0-150 mg/dl Cholesterol Level 191 0-200 mg/dl HDL Cholesterol 77 mg/dl Cholesterol/HDL Ratio 2.5 LDL Cholesterol, Calculated 90 mg/dl Medical Emergencies . Who to Call and When: Medical Emergencies: If at any time you feel your situation is an emergency, please call 911 immediately. . Non-Emergent Contact Non-Emergency issues call your: Primary Care Provider . . "Provider Documentation" section prepared by Lacy Muñoz. . VTE Core Measure Inpt VTE Proph given/why not?: Enoxaparin (Lovenox)SQ Additional Copies To Logan Quintana D.O.
[2016-12-09] MEDS ORDERED: METO-157 PO (08:58)
== END 2016-11-22 18:11 | disposition home or self-care (01) | DRG 439 ==
LOC: C.EDB 13:57 → C.4E 20:30 → ENRESERV 20:52
PROVIDERS: ADMIT Hospitalist; ATTEND Internal Medicine
DX: K85.90 Acute pancreatitis without necrosis or infection, unspecified (principal); Z68.42 Body mass index [BMI] 45.0-49.9, adult; E66.01 Morbid (severe) obesity due to excess calories; F32.9 Major depressive disorder, single episode, unspecified; F41.9 Anxiety disorder, unspecified; I10 Essential (primary) hypertension; K21.9 Gastro-esophageal reflux disease without esophagitis; K76.0 Fatty (change of) liver, not elsewhere classified; D64.9 Anemia, unspecified; R23.1 Pallor; Z87.19 Personal history of other diseases of the digestive system; Z88.5 Allergy status to narcotic agent; Z88.8 Allergy status to other drugs, medicaments and biological substances; Z79.899 Other long term (current) drug therapy; Z90.49 Acquired absence of other specified parts of digestive tract; Z83.3 Family history of diabetes mellitus; Z82.49 Family history of ischemic heart disease and other diseases of the circulatory system; Z84.1 Family history of disorders of kidney and ureter

== ENCOUNTER 2016-12-06 21:04 | Inpatient (IN) | payer BC ==
[~2016-12-06] VITALS: Ht 167.6 cm; Wt 138.7 kg
[~2016-12-06 21:04] MED LIST changes: -CHOL100010 PO; -CRFUDL PO; -CYAN100073 PO; +LORA-741 PO; -MISCCAP80 PO; -MULT-506 PO; -NORE1TAB90 PO; -OXYC-57 PO; -ZNT150 PO; +ZNTT/150 PO
[2016-12-06] MEDS ORDERED: METOCLOPRAMIDE HCL INJ 5 MG/ML 2 ML VIAL IV STA (21:28)
[2016-12-06] MEDS ORDERED: SODIUM CHLORIDE 0.9% 1000ML 1,000 ML IV STA ×2 (21:28→23:00)
[2016-12-06] MEDS ORDERED: HYDROmorphone INJ 1 MG/ML SYR IV STA (21:28)
[2016-12-06] MEDS ORDERED: MULT-506 PO (21:46)
[2016-12-06] MEDS ORDERED: CHOL100010 PO (21:48)
[2016-12-06] MEDS ORDERED: FERR1TAB23 PO (21:49)
[2016-12-06 21:51] LABS: HEMATOCRIT 38.2 % (37-47); MEAN CELL VOLUME 79.4 fL (80-100); MEAN CORPUSCULAR HEMOGLOBIN 26.4 pg (25-34); MEAN CORPUSCULAR HGB CONC 33.2 g/dl (32-36); MEAN PLATELET VOLUME 9.3 fL (7.4-10.4); PLATELET COUNT 527 K/uL (130-400); RED BLOOD COUNT 4.81 M/uL (4.2-5.4); WHITE BLOOD COUNT 6.45 K/uL (4.8-10.8)
[2016-12-06 22:08] LABS: ALT/SGPT 32 U/L (12-78); BLOOD UREA NITROGEN 7 mg/dl (7-18); BUN/CREATININE RATIO 7.4 (10-20); CALCIUM 8.6 mg/dl (8.5-10.1); CARBON DIOXIDE 22 mmol/L (21-32); CHLORIDE 109 mmol/L (98-107); CREATININE 0.89 mg/dl (0.60-1.20); GLUCOSE 95 mg/dl (70-99); POTASSIUM 3.7 mmol/L (3.5-5.1); SODIUM 142 mmol/L (136-145)
[2016-12-06 22:11] LABS: ALKALINE PHOSPHATASE 79 U/L (45-117); AST/SGOT 36 U/L (15-37)
[2016-12-06 22:44] LABS: BASO % 0.5 %; BASO ABS # 0.03 K/uL (0-0.2); COMPLETE YES; EOS % 0.2 %; IG% 0.3 %; LYMPH % 58.6 %; LYMPH ABS # 3.78 K/uL (1.2-3.4); NEUT % 33.4 %
[2016-12-06] MEDS ORDERED: ACETAMINOPHEN 325 MG TAB PO PRN (23:30)
[2016-12-06] MEDS ORDERED: OXYCODONE/ACETAMINOPHEN 5-325 TAB PO PRN (23:30)
[2016-12-07] MEDS ORDERED: OXYCODONE/ACETAMINOPHEN 5-325 TAB ONE (00:07)
[2016-12-07 00:44] VITALS: BP 118/72; PULSE 82; TEMP 36.8; O2SAT 96
[2016-12-07 00:54] VITALS: BP 118/72; PULSE 82; TEMP 36.8; O2SAT 96; Ht 167.6 cm; Wt 138.7 kg
--- NOTE | 2016-12-07 01:01 | EMERGENCY ROOM VISIT NOTE ---
History Report prepared by [place]: Tosha Grimm Under the Supervision of: Dr. Mendoza Reynolds D.O. First contact with patient: 21:18 Chief Complaint: ABDOMINAL PAIN Stated Complaint: VOMITING,ABD PAIN History of Present Illness The patient is a 26 year old female who presents to the Emergency Room with complaints of intermittent abdominal pain for the past 9 months. She states the pain started when she moved to the area from [place] for work. She reports this morning her pain worsened, rating her discomfort as an 8/10. The patient has been following with Dr. Lai at [facility] and notes she has undergone both a cholecystectomy and has had her pancreas removed. She also complains of nausea and vomiting and notes her current symptoms feel like her previous bouts of pancreatitis. Her last bowel movement was earlier today. The patient denies any headache, change in vision, fevers, chest pain, shortness of breath, diarrhea, pain with urination, and melena. Source of History: patient Onset: this morning Position: abdomen Symptom Intensity: 8/10 Timing: worsening Associated Symptoms: + nausea, + vomiting, No fevers, No headache, No chest pain, No SOB, No melena, No diarrhea, No urinary symptoms Review of Systems See HPI for pertinent positives & negatives. A total of 10 systems reviewed and were otherwise negative. Past Medical & Surgical Medical Problems: (1) Abdominal pain (2) Abnormal vaginal bleeding (3) Acute pancreatitis (4) Depression (5) Elevated bilirubin (6) Gastritis (7) Morbid obesity (8) Uterine fibroid (9) Uterine fibroid Surgical Problems: (1) History of esophagogastroduodenoscopy (EGD) Family History Diabetes mellitus Heart disease Hypertension Kidney disease Kidney stones Social History Smoking Status: Never Smoker Alcohol Use: occasionally Drug Use: none Marital Status: single Housing Status: lives alone 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, other Current/Historical Medications Scheduled Cholecalciferol (Vitamin D), Unknown Dose PO DAILY Ferrous Sulfate (Iron), 325 MG PO DAILY Multivitamin (Multivitamin), 1 TAB PO DAILY Ranitidine (Zantac), 150 MG PO BID Scheduled PRN Lorazepam (Ativan), 0.5 MG PO TID PRN for Anxiety Allergies Coded Allergies: Ondansetron (Verified Allergy, Unknown, lip tingling, 10/11/16) Morphine (Verified Adverse Reaction, Intermediate, ITCHINESS, 10/11/16) Physical Exam Vital Signs Date Time Temp Pulse Resp B/P (MAP) Pulse Ox O2 Delivery O2 Flow Rate FiO2 12/06/16 23:00 77 18 103/65 12/06/16 22:30 76 17 93/55 12/06/16 22:00 99/52 12/06/16 21:53 78 17 111/81 94 12/06/16 21:12 37.1 128 18 120/84 97 Physical Exam GENERAL: Patient is morbidly obese, alert, laying on right flank, disheveled, in moderate distress. EYE EXAM: normal conjunctiva OROPHARYNX: no exudate, no erythema, lips, buccal mucosa, and tongue normal and mucous membranes are moist NECK: supple, no nuchal rigidity, no adenopathy, non-tender LUNGS: Clear to auscultation. Normal chest wall mechanics HEART: Distant, no murmurs, S1 normal and S2 normal ABDOMEN: abdomen soft, diffuse tenderness to palpation, normo-active bowel sounds, no masses, no rebound or guarding. BACK: Back is symmetrical on inspection and there is no deformity, no midline tenderness, no CVA tenderness. SKIN: no rashes and no bruising UPPER EXTREMITIES: upper extremities are grossly normal. LOWER EXTREMITIES: No pitting edema. NEURO EXAM: Normal sensorium, cranial nerves II-XII grossly intact, normal speech, no gross weakness of arms, no gross weakness of legs. Gross sensation intact. Medical Decision & Procedures Laboratory Results 12/06/16 21:35 Red Blood Count 4.81, Mean Corpuscular Volume 79.4, Mean Corpuscular Hemoglobin 26.4, Mean Corpuscular Hemoglobin Concent 33.2, Mean Platelet Volume 9.3, Neutrophils (%) (Auto) 33.4, Lymphocytes (%) (Auto) 58.6, Monocytes (%) (Auto) 7.0, Eosinophils (%) (Auto) 0.2, Basophils (%) (Auto) 0.5, Neutrophils # (Auto) 2.16, Lymphocytes # (Auto) 3.78, Monocytes # (Auto) 0.45, Eosinophils # (Auto) 0.01, Basophils # (Auto) 0.03 12/06/16 21:35 Test 12/06/16 21:35 White Blood Count 6.45 K/uL (4.8-10.8) Red Blood Count 4.81 M/uL (4.2-5.4) Hemoglobin 12.7 g/dL (12.0-16.0) Hematocrit 38.2 % (37-47) Mean Corpuscular Volume 79.4 fL (80-100) Mean Corpuscular Hemoglobin 26.4 pg (25-34) Mean Corpuscular Hemoglobin Concent 33.2 g/dl (32-36) Platelet Count 527 K/uL (130-400) Mean Platelet Volume 9.3 fL (7.4-10.4) Neutrophils (%) (Auto) 33.4 % Lymphocytes (%) (Auto) 58.6 % Monocytes (%) (Auto) 7.0 % Eosinophils (%) (Auto) 0.2 % Basophils (%) (Auto) 0.5 % Neutrophils # (Auto) 2.16 K/uL (1.4-6.5) Lymphocytes # (Auto) 3.78 K/uL (1.2-3.4) Monocytes # (Auto) 0.45 K/uL (0.11-0.59) Eosinophils # (Auto) 0.01 K/uL (0-0.5) Basophils # (Auto) 0.03 K/uL (0-0.2) RDW Standard Deviation 58.9 fL (36.4-46.3) RDW Coefficient of Variation 20.1 % (11.5-14.5) Immature Granulocyte % (Auto) 0.3 % Immature Granulocyte # (Auto) 0.02 K/uL (0.00-0.02) Anion Gap 11.0 mmol/L (3-11) Est Creatinine Clear Calc Drug Dose 135.2 ml/min Estimated GFR () 102.2 Estimated GFR (Non- 88.2 BUN/Creatinine Ratio 7.4 (10-20) Calcium Level 8.6 mg/dl (8.5-10.1) Total Bilirubin 0.4 mg/dl (0.2-1) Direct Bilirubin < 0.1 mg/dl (0-0.2) Aspartate Amino Transf (AST/SGOT) 36 U/L (15-37) Alanine Aminotransferase (ALT/SGPT) 32 U/L (12-78) Alkaline Phosphatase 79 U/L (45-117) Total Protein 7.9 gm/dl (6.4-8.2) Albumin 3.5 gm/dl (3.4-5.0) Lipase 448 U/L (73-393) Laboratory results per my review. Medications Administered Medications (Trade) Dose Ordered Sig/Marlin Route Start Time Stop Time Status Last Admin Dose Admin Sodium Chloride 1,000 ml @ 999 mls/hr Q1H1M STAT IV 12/06/16 21:28 12/06/16 22:28 DC 12/06/16 21:52 999 MLS/HR Hydromorphone HCl (Dilaudid Inj) 1 mg NOW STAT IV 12/06/16 21:28 12/06/16 21:29 DC 12/06/16 21:52 1 MG Metoclopramide HCl (Reglan Inj) 10 mg NOW STAT IV 12/06/16 21:28 12/06/16 21:29 DC 12/06/16 21:52 10 MG Sodium Chloride 1,000 ml @ 999 mls/hr Q1H1M STAT IV 12/06/16 23:00 12/07/16 00:00 DC 12/06/16 23:00 999 MLS/HR ED Course ED COURSE: Vital signs were reviewed and showed normal vital signs. The patients medical record was reviewed The above diagnostic studies were performed and reviewed. ED treatments and interventions as stated above. 5: The patient was evaluated in room C3. A complete history and physical examination was performed. 8: Reglan Inj 10 mg IV, Dilaudid 1 mg IV, NSS 1000 ml @ 999 mls/hr IV. 2255: Upon reevaluation, the patient is still in pain and feeling nauseous. I discussed my findings with the patient and she understands and agrees with the treatment plan. 2300: NSS 1000 ml @ 999 mls/hr IV. 2310: I discussed the patients case with Dr. Scott, [facility] Hospitalist. The patient will be further evaluated. Based on the patients age, coexisting illnesses, exam and lab findings the decision to treat as an inpatient was made. The patient remained stable while under my care. The patient will be evaluated for further management. Medical Decision Medication Reconciliation: I attest that I have personally reviewed the patient' s current medication list. Blood Pressure Screening: The patient was found to have a slightly low blood pressure due to circumstances. I do not believe that the patient requires hypotension monitoring. Differential diagnoses includes but is not limited to gastritis, peptic ulcer disease, GERD, gallbladder disease, pancreatitis, small bowel obstruction, acute coronary syndrome, pericarditis, ischemic bowel, irritable bowel disease, irritable bowel syndrome, appendicitis, diverticulitis, malignancy, hernia, urinary tract infection, torsion, /ectopic , perforation, trauma, infectious. Patient is a 18-year-old female who presents the ER for diffuse abdominal pain. She notes this feels like her previous bouts of pancreatitis. Cholecystectomy 2 months ago. She does drink alcohol but has not had any recently. CBC was unremarkable. BMP including bilirubin and LFTs were normal. Lipase was elevated at 500. Ultrasound was fairly unremarkable. Patient was given IV Dilaudid and Reglan with significant improvement of her symptoms. She still unable to eat or drink. She is given a bolus normal saline. With her persistent pain she was admitted to internal medicine for pancreatitis. Consults Time Called: [phone] Consulting Physician: Jonah Leary Hospitalist Returned Call: [phone] I discussed the [facility] The patient will be further evaluated. Impression Primary Impression: Pancreatitis Scribe Attestation The scribe's documentation has been prepared under my direction and personally reviewed by me in its entirety. I confirm that the note above accurately reflects all work, treatment, procedures, and medical decision making performed by me. Departure Information Dispostion Being Evaluated By Hospitalist Referrals No Doctor, Assigned (PCP) Patient Instructions My [facility] Problem Qualifiers Primary Impression: Pancreatitis Chronicity: acute Pancreatitis type: unspecified pancreatitis type Acute pancreatitis complication: unspecified Qualified Codes: K85.90 - Acute pancreatitis without necrosis or infection, unspecified
[2016-12-07] MEDS ORDERED: PROMETHAZINE HCL 25 MG TAB PO PRN (01:15)
[2016-12-07] MEDS ORDERED: AYG/5 PO (01:24)
[2016-12-07] MEDS ORDERED: TRAM-10 PO (01:38)
[2016-12-07] MEDS ORDERED: LORAZEPAM 0.5 MG TAB PO PRN (01:45)
--- NOTE | 2016-12-07 02:11 | History and Physical ---
History & Physical Date & Time of Service: Dec 07, 2016 at 01:38 Chief Complaint: Abdominal Pain Primary Care Physician: Logan Tsai D.O. History of Present Illness Source: patient, clinic records, hospital records 26 yo F presents with intermittent abdominal pain that worsened this morning and was associated with nausea, vomiting and inability to tolerate PO. She has had a 9 month history of abdominal pain since moving home from school in [place]. It is described as in the epigastric area and radiates through to her back. It has come and gone since her cholecystectomy which was in September 2016. She had an admission for epigastric pain in August 2016 and was found to have fatty liver and gastritis/esophagitis on EGD. she was put on PPI and sulcralfate and was improved, but her abdominal pain returned and she was again admitted in September 2016. She underwent a cholecystectomy on 10/11 with a repeat EGD which was normal at that time. She was then readmitted two weeks ago for the same thing, underwent supportive care and was discharged. She felt her abdominal pain come on again last week and started taking her tramadol. Her PCP ordered a lipase which was 67 on 11/29. She did well over the weekend but woke up this morning as above. She is distressed about her situation and the inability to find a cause for what is ongoing. Abdominal u/s was performed and was unrevealing for an acute cause of her pain. She otherwise has persistent intermittent dysuria, a uterine fibroid, and she reports not having a period for two weeks after starting to take an OCP called norethindrone for a h/o mennorhagia. This medication was [place] physician [place] and she didn't understand instructions of use (such as Tuesday start, etc). She just started taking it and continued taking it. Past Medical/Surgical History Medical Problems: (1) Abdominal pain Status: Chronic (2) Abnormal vaginal bleeding Status: Resolved (3) Depression Status: Chronic (4) Gastritis Status: Resolved (5) Hepatic steatosis Status: Chronic (6) Morbid (severe) obesity due to excess calories Status: Chronic (7) Morbid obesity Status: Chronic (8) Pancreatitis Status: Chronic (10) Uterine fibroid Status: Chronic Surgical Problems: (1) H/O esophagogastroduodenoscopy Permanent Comment: August 2016-esophagitis and gastritis; October 11, 2016- normal Status: Chronic (3) S/P cholecystectomy Status: Chronic Family History Diabetes mellitus FATHER FH: kidney failure FATHER FH: rheumatoid arthritis MOTHER FHx: pancreatic disease Uncle (Uncle from pancreatitis) Heart disease FATHER Social History Smoking Status: Never Smoker Smokeless Tobacco Use: No Alcohol Use: occasionally Drug Use: none Marital Status: single Housing status: lives alone 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, other Immunizations History of Influenza Vaccine: No History of Tetanus Vaccine?: No History of Pneumococcal: No History of Hepatitis B Vaccine: No Multi-Drug Resistant Organisms History of MDRO: No Allergies Coded Allergies: Ondansetron (Verified Allergy, Unknown, lip tingling, 10/11/16) Morphine (Verified Adverse Reaction, Intermediate, ITCHINESS, 10/11/16) Home Medications Scheduled Multivitamin (Multivitamin), 1 TAB PO DAILY Norethindrone Acetate (Aygestin), 1 TAB PO DAILY Ranitidine (Zantac), 150 MG PO BID Scheduled PRN Lorazepam (Ativan), 0.5 MG PO TID PRN for Anxiety Tramadol (Ultram), 50 MG PO Q6H PRN for Pain Review of Systems Constitutional: No fever, No chills ENT: + trouble swallowing, No sore throat Respiratory: No cough, No shortness of breath Cardiovascular: No chest pain Abdomen: + pain, + nausea, + vomiting, No diarrhea, No GI bleeding Genitourinary - Female: + dysuria, + menorrhagia, No urinary frequency, No urinary urgency, No urinary retention, No hematuria Psychiatric: + depression symptoms, + anxiety, No substance abuse Integumentary: No rash, No new/changing skin lesions Allergic / Immunologic: No food allergies Physical Exam Vital Signs Date Time Temp Pulse Resp B/P (MAP) Pulse Ox O2 Delivery O2 Flow Rate FiO2 12/07/16 00:54 36.8 82 20 118/72 96 Room Air 12/07/16 00:44 36.8 82 20 118/72 (87) 96 Room Air 12/07/16 00:20 88 18 109/61 96 Room Air 12/06/16 23:00 77 18 103/65 12/06/16 22:30 76 17 93/55 12/06/16 22:00 99/52 12/06/16 21:53 78 17 111/81 94 12/06/16 21:12 37.1 128 18 120/84 97 General Appearance: WD/WN, + severe distress, + obese Head: normocephalic, atraumatic Eyes: normal inspection, sclerae normal ENT: hearing grossly normal, pharynx normal, + pertinent finding (moist mucous membranes) Neck: supple, no adenopathy, trachea midline Respiratory/Chest: lungs clear, normal breath sounds, no respiratory distress, no accessory muscle use Cardiovascular: regular rate, rhythm, no edema, no murmur, normal peripheral pulses Abdomen/GI: normal bowel sounds, soft, + tenderness, + pertinent finding ( exquisitely tender to palp all over abdomen, fearful with lots of guarding, limited exam 2/2 severe pain, +CVA tendernes on R) Back: normal inspection Extremities/Musculoskelatal: normal inspection, no pedal edema, normal range of motion Neurologic/Psych: alert, + depressed affect (tearful) Skin: normal color Diagnostics Laboratory Results 12/06/16 21:35 Red Blood Count 4.81, Mean Corpuscular Volume 79.4, Mean Corpuscular Hemoglobin 26.4, Mean Corpuscular Hemoglobin Concent 33.2, Mean Platelet Volume 9.3, Neutrophils (%) (Auto) 33.4, Lymphocytes (%) (Auto) 58.6, Monocytes (%) (Auto) 7.0, Eosinophils (%) (Auto) 0.2, Basophils (%) (Auto) 0.5, Neutrophils # (Auto) 2.16, Lymphocytes # (Auto) 3.78, Monocytes # (Auto) 0.45, Eosinophils # (Auto) 0.01, Basophils # (Auto) 0.03 12/06/16 21:35 Test 12/06/16 21:35 12/07/16 01:32 White Blood Count 6.45 K/uL (4.8-10.8) Red Blood Count 4.81 M/uL (4.2-5.4) Hemoglobin 12.7 g/dL (12.0-16.0) Hematocrit 38.2 % (37-47) Mean Corpuscular Volume 79.4 fL (80-100) Mean Corpuscular Hemoglobin 26.4 pg (25-34) Mean Corpuscular Hemoglobin Concent 33.2 g/dl (32-36) Platelet Count 527 K/uL (130-400) Mean Platelet Volume 9.3 fL (7.4-10.4) Neutrophils (%) (Auto) 33.4 % Lymphocytes (%) (Auto) 58.6 % Monocytes (%) (Auto) 7.0 % Eosinophils (%) (Auto) 0.2 % Basophils (%) (Auto) 0.5 % Neutrophils # (Auto) 2.16 K/uL (1.4-6.5) Lymphocytes # (Auto) 3.78 K/uL (1.2-3.4) Monocytes # (Auto) 0.45 K/uL (0.11-0.59) Eosinophils # (Auto) 0.01 K/uL (0-0.5) Basophils # (Auto) 0.03 K/uL (0-0.2) RDW Standard Deviation 58.9 fL (36.4-46.3) RDW Coefficient of Variation 20.1 % (11.5-14.5) Immature Granulocyte % (Auto) 0.3 % Immature Granulocyte # (Auto) 0.02 K/uL (0.00-0.02) Anion Gap 11.0 mmol/L (3-11) Est Creatinine Clear Calc Drug Dose 135.2 ml/min Estimated GFR () 102.2 Estimated GFR (Non- 88.2 BUN/Creatinine Ratio 7.4 (10-20) Calcium Level 8.6 mg/dl (8.5-10.1) Total Bilirubin 0.4 mg/dl (0.2-1) Direct Bilirubin < 0.1 mg/dl (0-0.2) Aspartate Amino Transf (AST/SGOT) 36 U/L (15-37) Alanine Aminotransferase (ALT/SGPT) 32 U/L (12-78) Alkaline Phosphatase 79 U/L (45-117) Total Protein 7.9 gm/dl (6.4-8.2) Albumin 3.5 gm/dl (3.4-5.0) Lipase 448 U/L (73-393) Lactic Acid Level 3.5 mmol/L (0.4-2.0) Results Past 24 Hours Test 12/06/16 21:35 12/07/16 01:32 Range/Units White Blood Count 6.45 4.8-10.8 K/uL Red Blood Count 4.81 4.2-5.4 M/uL Hemoglobin 12.7 12.0-16.0 g/dL Hematocrit 38.2 37-47 % Mean Corpuscular Volume 79.4 80-100 fL Mean Corpuscular Hemoglobin 26.4 25-34 pg Mean Corpuscular Hemoglobin Concent 33.2 32-36 g/dl Platelet Count 527 130-400 K/uL Mean Platelet Volume 9.3 7.4-10.4 fL Neutrophils (%) (Auto) 33.4 % Lymphocytes (%) (Auto) 58.6 % Monocytes (%) (Auto) 7.0 % Eosinophils (%) (Auto) 0.2 % Basophils (%) (Auto) 0.5 % Neutrophils # (Auto) 2.16 1.4-6.5 K/uL Lymphocytes # (Auto) 3.78 1.2-3.4 K/uL Monocytes # (Auto) 0.45 0.11-0.59 K/uL Eosinophils # (Auto) 0.01 0-0.5 K/uL Basophils # (Auto) 0.03 0-0.2 K/uL RDW Standard Deviation 58.9 36.4-46.3 fL RDW Coefficient of Variation 20.1 11.5-14.5 % Immature Granulocyte % (Auto) 0.3 % Immature Granulocyte # (Auto) 0.02 0.00-0.02 K/uL Sodium Level 142 136-145 mmol/L Potassium Level 3.7 3.5-5.1 mmol/L Chloride Level 109 98-107 mmol/L Carbon Dioxide Level 22 21-32 mmol/L Anion Gap 11.0 3-11 mmol/L Blood Urea Nitrogen 7 7-18 mg/dl Creatinine 0.89 0.60-1.20 mg/dl Est Creatinine Clear Calc Drug Dose 135.2 ml/min Estimated GFR () 102.2 Estimated GFR (Non- 88.2 BUN/Creatinine Ratio 7.4 10-20 Random Glucose 95 70-99 mg/dl Calcium Level 8.6 8.5-10.1 mg/dl Total Bilirubin 0.4 0.2-1 mg/dl Direct Bilirubin < 0.1 0-0.2 mg/dl Aspartate Amino Transf (AST/SGOT) 36 15-37 U/L Alanine Aminotransferase (ALT/SGPT) 32 12-78 U/L Alkaline Phosphatase 79 45-117 U/L Total Protein 7.9 6.4-8.2 gm/dl Albumin 3.5 3.4-5.0 gm/dl Lipase 448 73-393 U/L Diagnostic Radiology Abdominal us: (wet read) s/p cholecystectomy. Common duct is upper limits of normal, 5/7mm. Enlarged and echogenic liveer, suggesting hepatic steatosis No right hydronephrosis No free fluid [~ rep ct add3]] CT SCAN OF THE ABDOMEN AND PELVIS WITH IV CONTRAST CLINICAL HISTORY: Epigastric abdominal pain. COMPARISON STUDY: Abdominal CT scans dated 09/24/2016 and 08/31/2016. TECHNIQUE: Following the IV administration of 119 cc of Optiray 320, CT scan of the abdomen and pelvis is performed from the lung bases to the proximal femora. Images are reviewed in the axial, sagittal, and coronal planes. IV contrast was administered without complication. Automated dose control exposure was utilized. The examination is degraded by large body habitus, and by streak artifact from the body wall abutting the CT gantry. CT DOSE: 2904.41 mGy.cm FINDINGS: Lung bases: The heart is normal in size and without pericardial effusion. The lung bases are clear. There is a tiny hiatal hernia. Liver: The contrast-enhanced liver is enlarged, measuring 20.6 cm in length. The liver demonstrates diffusely diminished attenuation consistent with severe hepatic steatosis. There is no intrahepatic biliary ductal dilatation. The hepatic veins and portal veins are patent. Gallbladder: Surgically absent noting clips in the gallbladder fossa. Spleen: Normal in size and attenuation. Pancreas: The pancreas is normal in appearance and enhances homogeneously. The splenic vein is patent. There is no peripancreatic stranding or fluid. Adrenal glands: Unremarkable. Kidneys: The contrast enhanced kidneys are normal in size and without hydronephrosis. The kidneys enhance symmetrically. Abdominal vasculature: The abdominal aorta is normal in course and caliber. Bowel: The small bowel and colon are normal in course and caliber. The appendix is well-visualized and normal. Peritoneum: There is no intraperitoneal free air or abdominal ascites. Induration within the supraumbilical pannus is likely related to a recent laparoscopy port. Lymphadenopathy: None. Pelvic viscera: The bladder, uterus, and adnexa are normal as visualized. There are bilateral ovarian follicles. Skeletal structures: No lytic or blastic lesions are seen. Mild sclerotic change is noted in the sacroiliac joints. IMPRESSION: 1. There are no acute infectious or inflammatory findings in the abdomen or pelvis. 2. Hepatomegaly and severe hepatic steatosis. 3. There is evidence of interval cholecystectomy as compared to 09/24/2016. EKG EKG (11/19/2016): ST 115, no ST changes Impression Assessment and Plan 26 yo F with recurrent acute pancreatitis 1. Acute pancreatitis-recurrent s/p carley. Clear lipase elevation from 6 days ago indicating cyclic iterations. Etiologies include but are not limited to sphincter of oddi dysfunction (spasm/stenosis), use of OCPs, ?pancreas divisum, ?hereditary pancreatitis (uncle from this). Will also rule out porphyria with urine porphorbilogen and hemochromatosis with ferritin. No lipid studies are avail so will screen for hypertriglyceridemia, also. She has been seen by GI in the past and had some gastritis/esophagitis which cleared up by September EGD which was normal. She remains on ranitidine. Cont supportive measures with IVF , pain and nausea control. Clear liquid diet in am. Advance as tolerated. Consider GI consult. Hold OCPs in setting of "missed period" and possibility that this could be exacerbating the issue. Other causes of abdominal pain include but not limited to mesenteric ischemia, uterine fibroid, UTI. She has an elevated lactate and a very concerning exam. CTA abd/pelvis ordered STAT. UA-pending. 2. Menstrual irregularities-she had some menorrhagia a few months back and was prescribed norethindrone to take but was not given specific instructions on how to take this correctly or when to follow up. Will hold this now and allow her to start menstruating on her own. Needs to use backup method of control in the meantime. Will need follow-up with PCP to readdress need for OCPs and provide appropriate instruction 3. uterine fibroid 4. Morbid obesity 5. Depresion/anxiety 2/2 ongoing medical problems-cont Ativan PRN. Would strongly recommend SSRI consideration on outpatient follow-up. 6. Intermittent dysuria-no h/o UTI seen on labs, however, patient has had one empiric course of Cipro. Will start pyridium now and hold abx if abnormal UA, which is pending. DVT proph: SCDs Full Code Dispo-med/surg, then to home when feeling better and workup complete. Goldie Scott DO [facility]ist Level of Care Med/Surg Advanced Directives Existing Living Will: No Existing Power of Hybrid Powertrain Development Engineer: No Resuscitation Status FULL RESUSCITATION VTE Prophylaxis VTE Risk Assessment Done? Y/N: Yes Risk Level: Low Given or contraindicated: SCD's, Treatment not indicated Additional Copies To Logan Tsai D.O.
[2016-12-07] MEDS: SODIUM CHLORIDE 0.9% 1000ML 1,000 ML IV SCH ×4 (02:26→16:24)
[2016-12-07] MEDS: HYDROmorphone INJ 0.5 MG/0.5 ML SYR IV PRN ×3 (02:27→18:42)
[2016-12-07] MEDS ORDERED: OPTIRAY 320 IV PRN (03:00)
[2016-12-07] MEDS: PHENAZOPYRIDINE HCL 200 MG TAB PO SCH ×3 (03:14→14:36)
[2016-12-07 04:37] LABS: URINE APPEARANCE CLEAR (CLEAR); URINE BILIRUBIN NEG (NEG); URINE COLOR YELLOW; URINE NITRITE NEG (NEG); URINE PH 5.5 (4.5-7.5); URINE SPECIFIC GRAVITY > 1.045 (1.000-1.030); UROBILINOGEN NEG (NEG)
[2016-12-07 04:39] LABS: MANUAL MICROSCOPIC REQUIRED? NO; REVIEW REQ? NO
[2016-12-07 04:46] LABS: PREG INTERNAL NEGATIVE QC NEG CLEAR BACKGROUND; PREG INTERNAL POSITIVE QC POS CONTROL LINE
--- NOTE | 2016-12-07 06:50 | DIAGNOSTIC IMAGING REPORT ---
ABDOMEN LIMITED (US) HISTORY: 26 years Female acute abdominal pain with concern for acute pancreatitis. COMPARISON: CTA of the abdomen and pelvis 12/07/2016 TECHNIQUE: Multiple real-time sonographic images of the abdominal right upper quadrant were obtained assessing grayscale appearance and color flow. FINDINGS: The imaged pancreas is unremarkable with the distal body and tail obscured by bowel gas. There is diffusely increased echogenicity with poor through transmission of the liver suggesting fat infiltration which measures up to 19.3 cm. Prior cholecystectomy. Common bile duct measures upper limits of normal at 5.7 cm, likely normal postcholecystectomy state. The imaged right kidney is unremarkable without hydronephrosis. IMPRESSION: 1. Status post cholecystectomy with likely physiologic mild prominence of the common bile duct which measures 5.7 mm. 2. Fatty infiltration of the liver. The above report was generated using voice recognition software. It may contain grammatical, syntax or spelling errors. Electronically signed by: Daniel Wagoner M.D. 12/07/2016 6:49 AM Dictated Date/Time: 12/07/2016 6:46 AM
[2016-12-07 07:14] VITALS: BP 137/90; PULSE 97; TEMP 37.2; O2SAT 96
--- NOTE | 2016-12-07 07:24 | DIAGNOSTIC IMAGING REPORT ---
ANGIO ABD/PELVIS WITH CONTRAST CLINICAL HISTORY: 26 years-old Female presenting with exquisite abdominal tenderness, guarding, elevated lactate, concern for mesenteric ischemia. TECHNIQUE: Multidetector CT angiography of the abdomen and pelvis was performed after the administration of intravenous contrast. 3-D volumetric and maximum intensity projection (MIP) images were subsequently reconstructed for review. IV contrast: 115 mL of Optiray 320. COMPARISON: 11/19/2016. CT DOSE: The estimated cumulative dose is 1889.20 mGy.cm. FINDINGS: Voice Coach topogram: Cholecystectomy clips noted. Lung bases: Minimal dependent opacity at the right lung base likely atelectasis. Top normal heart size. Small pericardial lymph node noted. No pericardial or pleural effusion. Liver: Normal liver morphology. Suggestion of hepatic steatosis. Conventional hepatic arterial anatomy. Portal vein grossly patent. Biliary: Mild prominence of the extrahepatic bile duct likely relates to a reservoir effect in the post cholecystectomy state. Gallbladder surgically absent. Pancreas: Small hypodensity in the uncinate (series 2 image 27) may relate to invagination of focal fat. No pancreatic ductal dilatation. Spleen: Normal. Splenule noted. Adrenal glands: Normal. Kidneys and ureters: Normal. No hydronephrosis. 2 left renal arteries and a circumaortic left renal vein. Single right renal artery with a retrocaval early branching pattern. 2 right renal veins. Gastrointestinal tract: The appendiceal tip is mildly dilated by size criteria, measuring 9 mm, however, no periappendiceal fat stranding (series 2 image 393). No bowel obstruction. No significant bowel wall thickening to suggest colitis or enteritis. Peritoneal cavity: No free fluid or intraperitoneal gas. Bladder: Normal. Pelvic organs: Fibroid uterus. Normal ovaries. Vasculature: Abdominal aorta is patent and normal in caliber. Celiac trunk, superior mesenteric, and inferior mesenteric arteries patent. Bilateral iliofemoral arteries patent. Lymph nodes: No enlarged lymph nodes in the abdomen or pelvis. Abdominal wall: Infiltration in the supraumbilical region may relate to prior surgery. No associated fluid collection. Musculoskeletal: Normal. IMPRESSION: 1. No evidence of mesenteric ischemia. No significant vessel stenosis or vessel occlusion. 2. The appendiceal tip is mildly dilated by size criteria, however, no associated inflammatory change to convincingly suggest appendicitis. Follow-up with medical examinations recommended to exclude this entity. 3. Hepatic steatosis. Electronically signed by: Holden Vizcaino M.D. 12/07/2016 7:23 AM Dictated Date/Time: 12/07/2016 7:11 AM
[2016-12-07] MEDS: MULTIVITAMIN TAB PO SCH (07:44)
[2016-12-07] MEDS: RANITIDINE HCL 150 MG TAB PO SCH ×2 (07:44→20:25)
--- NOTE | 2016-12-07 09:10 | DIAGNOSTIC IMAGING REPORT ---
ABD/PELVIS ORAL CONT ONLY CT DOSE: 1825.13 mGy.cm HISTORY: Pain APPEDICEAL TIP ON CTA, ORAL ONLY TECHNIQUE: Multiaxial CT images of the abdomen and pelvis were performed following the use of oral contrast. COMPARISON STUDY: 12/07/2016 FINDINGS: Small hiatal hernia. Liver spleen pancreas are unremarkable. Kidneys are uniform in appearance. No evidence for hydronephrosis. Bowel pattern is nonobstructive. Prior cholecystectomy. The appendix is considered unremarkable. No significant periappendiceal infiltrative change. Findings of a midline abdominal incision. Localized postprocedural scar formation. negative pelvis. Several small uterine fibroid is again noted. IMPRESSION: Negative appendix. Nonobstructive bowel pattern. No acute process of the abdomen or pelvis. The above report was generated using voice recognition software. It may contain grammatical, syntax or spelling errors. Electronically signed by: Toro Singh M.D. 12/07/2016 9:09 AM Dictated Date/Time: 12/07/2016 9:01 AM
[2016-12-07] MEDS ORDERED: PROMETHAZINE HCL INJ 12.5 MG in SODIUM CHLORIDE 0.9% 50ML 50 ML IV PRN (14:45)
[2016-12-07 15:50] VITALS: BP 140/90; PULSE 92; TEMP 37; O2SAT 95
--- NOTE | 2016-12-07 16:39 | Progress Note ---
Internal Med Progress Note Date of Service: Dec 07, 2016. Provider Documentation: SUBJECTIVE: Patient c/o RLL pain > epigastric pain. Persistent nausea, vomiting Unable to tolerate clear liquid diet No fever, chills, diarrhea, constipation, chest pain OBJECTIVE: Vital Signs-as noted below Exam: General-AAOX3, distress secondary to nausea; Morbid obesity + Lungs- AEBE, no wheezing Heart-S1, S2 normal Abdomen-Soft, tenderness in RLL, Epigastric on superficial palpation, BS present Extremities-No edema Lab data as noted below. ASSESSMENT & PLAN: 26 yo F with prior episodes of pancreatitis presents with recurrent episode of abdominal pain. RECURRENT EPISODE OF ACUTE ABDOMINAL PAIN: Patient has been in hospital this August, September, November 2016 for episodes of abdominal pain, diagnosed with pancreatitis on 2 occasions. Last discharge - per GI note, less likely to be pancreatitis. Had gallstone pancreatitis with cholecystectomy few months ago. Since than on and off has these episodes associated with nausea, vomiting. This time presented with similar symptoms of nausea, vomiting, epigastric / RLL pain, mildly elevated lipase 400s, CT scan shows no acute inflammatory process. -Etiology of abdominal pain is unclear. Pancreatitis possible with N/V/pain, mildly elevated lipase, but CT scan shows no inflammatory process including pancreas. Appendicitis considered but repeat CT abd with Oral contrast - no appendicitis, No mesentric ischemia D/D considered: Spinhcter of oddi dysfunction, porphyria. Urine porphobilogen / hemochromatosis - ferritin ordered- follow up. Lactic acid 3.5 -IVF, Clear liquids, Pain control ordered -Consult GI -General surgery was consulted for possible appendicitis- recommended CT with oral contrast which came back negative for acute appendicitis MENORRHAGIA - Had some menorrhagia a few months back and was prescribed norethindrone to take but was not given specific instructions on how to take this correctly or when to follow up. Will hold this now and allow her to start menstruating on her own. Needs to use backup method of control in the meantime. Will need follow-up with PCP to readdress need for OCPs. UTERINE FIBROID INTERMITTENT DYSURIA UA negative DEPRESSION/ANXIETY Secondary to ongoing medical problems. -Continue with Ativan PRN -Recommend SSRI MORBID OBESITY. DVT PROPHYLAXIS: SCDs FULL CODE DISPOSITION Expected dc home when stable Vital Signs: Date Time Temp Pulse Resp B/P (MAP) Pulse Ox O2 Delivery O2 Flow Rate FiO2 12/07/16 15:50 37.0 92 18 140/90 (107) 95 Room Air 12/07/16 08:00 Room Air 12/07/16 07:14 37.2 97 20 137/90 (106) 96 Room Air 12/07/16 00:54 36.8 82 20 118/72 96 Room Air 12/07/16 00:44 36.8 82 20 118/72 (87) 96 Room Air 12/07/16 00:20 88 18 109/61 96 Room Air 12/06/16 23:00 77 18 103/65 12/06/16 22:30 76 17 93/55 12/06/16 22:00 99/52 12/06/16 21:53 78 17 111/81 94 12/06/16 21:12 37.1 128 18 120/84 97 Lab Results: Results Past 24 Hours Test 12/06/16 21:35 12/07/16 00:00 12/07/16 01:32 12/07/16 04:25 Range/Units White Blood Count 6.45 4.8-10.8 K/uL Red Blood Count 4.81 4.2-5.4 M/uL Hemoglobin 12.7 12.0-16.0 g/dL Hematocrit 38.2 37-47 % Mean Corpuscular Volume 79.4 80-100 fL Mean Corpuscular Hemoglobin 26.4 25-34 pg Mean Corpuscular Hemoglobin Concent 33.2 32-36 g/dl Platelet Count 527 130-400 K/uL Mean Platelet Volume 9.3 7.4-10.4 fL Neutrophils (%) (Auto) 33.4 % Lymphocytes (%) (Auto) 58.6 % Monocytes (%) (Auto) 7.0 % Eosinophils (%) (Auto) 0.2 % Basophils (%) (Auto) 0.5 % Neutrophils # (Auto) 2.16 1.4-6.5 K/uL Lymphocytes # (Auto) 3.78 1.2-3.4 K/uL Monocytes # (Auto) 0.45 0.11-0.59 K/uL Eosinophils # (Auto) 0.01 0-0.5 K/uL Basophils # (Auto) 0.03 0-0.2 K/uL RDW Standard Deviation 58.9 36.4-46.3 fL RDW Coefficient of Variation 20.1 11.5-14.5 % Immature Granulocyte % (Auto) 0.3 % Immature Granulocyte # (Auto) 0.02 0.00-0.02 K/uL Sodium Level 142 136-145 mmol/L Potassium Level 3.7 3.5-5.1 mmol/L Chloride Level 109 98-107 mmol/L Carbon Dioxide Level 22 21-32 mmol/L Anion Gap 11.0 3-11 mmol/L Blood Urea Nitrogen 7 7-18 mg/dl Creatinine 0.89 0.60-1.20 mg/dl Est Creatinine Clear Calc Drug Dose 135.2 ml/min Estimated GFR () 102.2 Estimated GFR (Non- 88.2 BUN/Creatinine Ratio 7.4 10-20 Random Glucose 95 70-99 mg/dl Calcium Level 8.6 8.5-10.1 mg/dl Total Bilirubin 0.4 0.2-1 mg/dl Direct Bilirubin < 0.1 0-0.2 mg/dl Aspartate Amino Transf (AST/SGOT) 36 15-37 U/L Alanine Aminotransferase (ALT/SGPT) 32 12-78 U/L Alkaline Phosphatase 79 45-117 U/L Total Protein 7.9 6.4-8.2 gm/dl Albumin 3.5 3.4-5.0 gm/dl Lipase 448 73-393 U/L Lactic Acid Level 3.5 0.4-2.0 mmol/L Urine Color YELLOW Urine Appearance CLEAR CLEAR Urine pH 5.5 4.5-7.5 Urine Specific [place] > 1.045 1.000-1.030 Urine Protein NEG NEG Urine Glucose (UA) NEG NEG Urine Ketones NEG NEG Urine Occult Blood NEG NEG Urine Nitrite NEG NEG Urine Bilirubin NEG NEG Urine Urobilinogen NEG NEG Urine Leukocyte Esterase NEG NEG Test 12/07/16 04:27 Range/Units Urine Test NEG NEG Microbiology Results 12/07/16 Urine Culture, Received Pending
--- NOTE | 2016-12-07 20:23 | DIAGNOSTIC IMAGING REPORT ---
EXAMINATION: PELVIC ULTRASOUND (transabdominal and endovaginal scanning) CLINICAL HISTORY: Right lower quadrant abdominal pain COMPARISON STUDY: 05/28/2016 FINDINGS: The uterus measured 6 x 3.8 x 3.4 cm. There is a probable left-sided 23 mm fibroid. There is a suspected 19 mm right-sided fibroid.. The endometrial stripe measured 8 mm. Neither ovary was visualized The examination is limited from a technical standpoint due to the patient's large body habitus. There was no evidence of pathologic free pelvic fluid. IMPRESSION: 1. Technically limited study 2. Uterine fibroids 3. Nonvisualization of the ovaries. Electronically signed by: Jelani Escamilla M.D. 12/07/2016 8:22 PM Dictated Date/Time: 12/07/2016 8:19 PM
[2016-12-07 23:46] VITALS: BP 153/93; PULSE 84; TEMP 37.4; O2SAT 93
[2016-12-08] MEDS: HYDROmorphone INJ 0.5 MG/0.5 ML SYR IV PRN ×3 (00:13→22:08)
[2016-12-08] MEDS: SODIUM CHLORIDE 0.9% 1000ML 1,000 ML IV SCH ×3 (00:13→15:55)
[2016-12-08 07:22] VITALS: BP 167/103; PULSE 94; TEMP 36.9; O2SAT 96
[2016-12-08 07:40] VITALS: BP 178/94
[2016-12-08] MEDS: MULTIVITAMIN TAB PO SCH (07:42)
[2016-12-08] MEDS: RANITIDINE HCL 150 MG TAB PO SCH ×2 (07:42→19:44)
[2016-12-08 07:53] LABS: HEMATOCRIT 35.7 % (37-47); MEAN CELL VOLUME 80.4 fL (80-100); MEAN CORPUSCULAR HEMOGLOBIN 25.5 pg (25-34); MEAN CORPUSCULAR HGB CONC 31.7 g/dl (32-36); MEAN PLATELET VOLUME 9.3 fL (7.4-10.4); PLATELET COUNT 400 K/uL (130-400); RED BLOOD COUNT 4.44 M/uL (4.2-5.4); WHITE BLOOD COUNT 4.11 K/uL (4.8-10.8)
[2016-12-08 08:26] LABS: BUN/CREATININE RATIO 5.2 (10-20); CALCIUM 8.2 mg/dl (8.5-10.1); CREATININE 0.67 mg/dl (0.60-1.20); POTASSIUM 3.8 mmol/L (3.5-5.1)
[2016-12-08 08:33] LABS: ALB/GLOB RATIO 0.8 (0.9-2); FERRITIN 35.8 ng/ml (8.0-388.0)
[2016-12-08] MEDS ORDERED: HYDROCHLOROTHIAZIDE 25 MG TAB PO STA (08:55)
--- NOTE | 2016-12-08 09:54 | Clinical Documentation Query ---
CLINICAL DOCUMENTATION QUERY 26 year old female who presents to the Emergency Room with complaints of intermittent abdominal pain. A few months ago she underwent cholecystectomy for gallstone pancreatitis. In your clinical opinion is this patient being managed for: ( ) Postcholecystectomy syndrome ( ) Other explanation of clinical findings (Please Explain) ( ) Unable to determine (Please Define) ( ) Need to Discuss ( + ) Not Agree The medical record reflects the following clinical findings, treatment, and risk factors. Clinical Indicators: Abdominal pain, Nausea, Negative CT scan for acute process. Treatment: GI consult, IV Phenergan, IV Dilaudid, IVF's, Risk Factors: s/p Cholecystectomy Please clarify and document your clinical opinion in the progress notes and discharge summary. Terms such as "probable", "suspected", "likely", "questionable", "possible", or "still to be ruled out" are acceptable. IF IN AGREEMENT, YOU MUST DOCUMENT ABOVE DIAGNOSTIC STATEMENT IN DAILY PROGRESS NOTES AND DISCHARGE SUMMARY. This document is not part of the patient's record. Post Cholecystectomy Syndrome classifies those cases in which symptoms suggestive of biliary tract disease either persist or develop following a cholecystectomy, but for which no demonstrable cause or abnormality is found on work-up. Symptoms occur in about 5-40% of patients who undergo cholecystectomy. Clinical indicators include persistent pain in the upper right abdomen, nausea, vomiting, intolerance to fatty foods, referred pain to right shoulder, belching, bloating, dyspepsia, biliary colic. Risk factor: s/p cholecystectomy Treatment: treatment of symptoms, GI work-up, ERCP Thank You, Dereje Negrete, RN [phone]
--- NOTE | 2016-12-08 12:06 | Gastrointestinal Consultation ---
Gastrointestinal Consultation Date of Consultation: Dec 08, 2016 Attending Physician: Dr. Kurt Eisenberg Consulting Physician: Dr. Damon Reason for Consultation: Pancreatitis History of Present Illness Patient is a 26 year old female patient of Dr. Logan Tsai presented to the ED yesterday with c/o abdominal pain. GI is consulted for "pancreatitis." Ms. Xie has been seen here at [facility] five times since August. She has undergone CT abd/pelvis four times, CT angiography as well as MRCP and GB US. The imaging has suggested severe hepatic steatosis but no acute findings. She underwent cholecystectomy on 10/12/16. Yesterday, she experienced several episodes of nausea/vomiting and persistent RUQ abdominal pain. She presented to the ED. On arrival yesterday, Lipase = 488 , Cr. 0.[address] w/o any acute changes, no biliary ductal dilation, post cholecystectomy. LFTs have been normal. Past Medical/Surgical History Medical Problems: (1) Dehydration Status: Acute (2) Intractable abdominal pain Status: Acute (3) Intractable abdominal pain Status: Acute (4) Intractable nausea and vomiting Status: Acute (5) Pancreatic mass Status: Acute (6) Pancreatitis Status: Acute (7) Pancreatitis Status: Acute (8) Pancreatitis Status: Chronic Surgical Problems: (1) History of esophagogastroduodenoscopy (EGD) Permanent Comment: 09/01/16- - LA Grade B reflux esophagitis Status: Chronic Family History Diabetes mellitus FATHER FH: kidney failure FATHER FH: rheumatoid arthritis MOTHER FHx: pancreatic disease Uncle (Uncle from pancreatitis) Heart disease FATHER Social History Smoking Status: Never Smoker Alcohol Use: occasionally Drug Use: none Marital Status: single Housing Status: lives alone 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, other Allergies Coded Allergies: Ondansetron (Verified Allergy, Unknown, lip tingling, 10/11/16) Morphine (Verified Adverse Reaction, Intermediate, ITCHINESS, 10/11/16) Current Medications Home Meds and Scripts Medications Dose Route/Sig Max Daily Dose Days Date Category Ultram (Tramadol HCl) 50 Mg Tab 50 Mg PO Q6H PRN 12/07/16 Reported Aygestin (Norethindrone Acetate) 5 Mg Tab 1 Tab PO DAILY 12/07/16 Reported Multivitamin (Multivitamins) Tab 1 Tab PO DAILY 12/06/16 Reported Ativan (Lorazepam) 0.5 Mg Tab 0.5 Mg PO TID PRN 11/19/16 Reported Zantac (Ranitidine HCl) 150 Mg Tab 150 Mg PO BID 11/19/16 Reported Review of Systems Constitutional: No fever, No chills, No sweats, No weight loss, No weakness Eyes: No eye pain, No redness ENT: No sore throat, No trouble swallowing, No pain on swallowing Respiratory: No cough, No wheezing, No shortness of breath, No dyspnea on exertion Cardiac: No chest pain, No edema, No palpitations Abdomen: + see HPI, + pain, + nausea, + vomiting, No diarrhea, No constipation , No GI bleeding Neuro: No memory loss, No weakness, No numbness/tingling, No vertigo, No balance problems Psych: No depression symptoms, No anxiety, No insomnia Heme: No abnormal bleeding/bruising, No night sweats Endo: No excessive thirst, No excessive urination Skin: No rash, No itch, No new/changing skin lesions, No jaundice Physical Exam Date Time Temp Pulse Resp B/P (MAP) Pulse Ox O2 Delivery O2 Flow Rate FiO2 12/08/16 08:00 Room Air 12/08/16 07:40 178/94 (122) 12/08/16 07:22 36.9 94 20 167/103 (124) 96 Room Air 12/08/16 00:00 Room Air 12/07/16 23:46 37.4 84 20 153/93 (113) 93 Room Air 12/07/16 16:00 Room Air 12/07/16 15:50 37.0 92 18 140/90 (107) 95 Room Air General Appearance: no apparent distress Eyes: normal inspection, EOMI Neck: supple, no adenopathy, thyroid normal Respiratory/Chest: chest non-tender, lungs clear, normal breath sounds, no accessory muscle use Cardiovascular: regular rate, rhythm, no JVD, no murmur Abdomen: normal bowel sounds, soft, no organomegaly, + guarding, + tenderness ( moderate right upper and right mid abdomen tenderness) Extremities: normal inspection, no pedal edema, normal capillary refill Neurologic/Psych: alert, normal mood/affect, oriented x 3 Skin: normal color, no jaundice, warm/dry, no rash Laboratory Results Last 24 Hours Test 12/08/16 07:42 12/08/16 07:43 12/08/16 10:57 Sodium Level 139 mmol/L Potassium Level 3.8 mmol/L Chloride Level 106 mmol/L Carbon Dioxide Level 23 mmol/L Anion Gap 10.0 mmol/L Blood Urea Nitrogen 4 mg/dl Creatinine 0.67 mg/dl Est Creatinine Clear Calc Drug Dose 179.7 ml/min Estimated GFR () 138.6 Estimated GFR (Non- 119.6 BUN/Creatinine Ratio 5.2 Random Glucose 92 mg/dl Calcium Level 8.2 mg/dl Ferritin 35.8 ng/ml Total Bilirubin 1.1 mg/dl Aspartate Amino Transf (AST/SGOT) 31 U/L Alanine Aminotransferase (ALT/SGPT) 27 U/L Alkaline Phosphatase 76 U/L Total Protein 6.9 gm/dl Albumin 3.0 gm/dl Globulin 3.9 gm/dl Albumin/Globulin Ratio 0.8 White Blood Count 4.11 K/uL Red Blood Count 4.44 M/uL Hemoglobin 11.3 g/dL Hematocrit 35.7 % Mean Corpuscular Volume 80.4 fL Mean Corpuscular Hemoglobin 25.5 pg Mean Corpuscular Hemoglobin Concent 31.7 g/dl RDW Standard Deviation 58.8 fL RDW Coefficient of Variation 19.5 % Platelet Count 400 K/uL Mean Platelet Volume 9.3 fL Lactic Acid Level 0.8 mmol/L Triglycerides Level 141 mg/dl Cholesterol Level 170 mg/dl HDL Cholesterol 56 mg/dl LDL Cholesterol, Calculated 86 mg/dl VLDL Cholesterol, Calculated 28 mg/dl Cholesterol/HDL Ratio 3.0 Impression Patient is a 26 year old female with episodic nausea/vomiting and RUQ/right mid abdomen pain. She has lipase in the 400's, no CT evidence of pancreas abnormalities. Plan 1. Consider NM Gastric emptying study to r/o gastroparesis but pt can not be on pain meds or sleep aids for this to be accurate. 2. No indication for endoscopy. I have personally seen and examined the patient with RITA Delgado on . Her note reflects my exam and findings. I agree with her impression and plan. No evidence of pancreatitis. Most likely functional pain. Brady Damon M.D.
[2016-12-08 15:44] VITALS: BP 143/99; PULSE 91; TEMP 36.8; O2SAT 97
--- NOTE | 2016-12-08 16:08 | Progress Note ---
Internal Med Progress Note Date of Service: Dec 08, 2016. Provider Documentation: SUBJECTIVE: Patient is doing much better today. Abdominal pain has improved. No nausea, vomiting. No fever, chills, diarrhea, constipation, chest pain. OBJECTIVE: Vital Signs-as noted below Exam: General-AAOX3, no distress, Morbid obesity Lungs- AEBE, no wheezing Heart-S1, S2 normal Abdomen-Soft, non tender, non distended, BS present Extremities-No edema Lab data as noted below. ASSESSMENT & PLAN: 26 yo F with prior episodes of pancreatitis presents with recurrent episode of abdominal pain. RECURRENT EPISODE OF ACUTE ABDOMINAL PAIN: Improved Patient has been in hospital this August, September, November 2016 for episodes of abdominal pain, diagnosed with pancreatitis on 2 occasions. Last discharge - per GI note, less likely to be pancreatitis. Had gallstone pancreatitis with cholecystectomy few months ago. Since than on and off has these episodes associated with nausea, vomiting. Has had CT scan abd/pelvis x 4 times, CT angiography , MRCP and GB US in past. This time presented with similar symptoms of nausea, vomiting, epigastric / RLL pain, mildly elevated lipase 400s, CT scan shows no acute inflammatory process. -Etiology of abdominal pain is unclear. Pancreatitis less likely with though mildly elevated lipase, but CT scan shows no inflammatory process including pancreas. Appendicitis considered but repeat CT abd with Oral contrast - no appendicitis, No mesentric ischemia D/D considered: Spinhcter of oddi dysfunction, porphyria. Urine porphobilogen / hemochromatosis - ferritin -normal . Lactic acid 3.5--> 0.8 today. -IVF- okay to discontinue -Advance diet to regular -Consulted GI- recommends outpatient gastric emptying study but no further intervention needed. Could be functional abdominal pain ? -General surgery was consulted for possible appendicitis- recommended CT with oral contrast which came back negative for acute appendicitis MENORRHAGIA - Had some menorrhagia a few months back and was prescribed norethindrone to take but was not given specific instructions on how to take this correctly or when to follow up. Will hold this now and allow her to start menstruating on her own. Needs to use backup method of control in the meantime. Will need follow-up with PCP to readdress need for OCPs. UTERINE FIBROID INTERMITTENT DYSURIA UA negative DEPRESSION/ANXIETY Secondary to ongoing medical problems. -Continue with Ativan PRN MORBID OBESITY. DVT PROPHYLAXIS: SCDs FULL CODE DISPOSITION Likely discharge in AM Vital Signs: Date Time Temp Pulse Resp B/P (MAP) Pulse Ox O2 Delivery O2 Flow Rate FiO2 12/08/16 15:44 36.8 91 18 143/99 (114) 97 Room Air 12/08/16 08:00 Room Air 12/08/16 07:40 178/94 (122) 12/08/16 07:22 36.9 94 20 167/103 (124) 96 Room Air 12/08/16 00:00 Room Air 12/07/16 23:46 37.4 84 20 153/93 (113) 93 Room Air Lab Results: Results Past 24 Hours Test 12/08/16 07:42 12/08/16 07:43 12/08/16 10:57 Range/Units Sodium Level 139 136-145 mmol/L Potassium Level 3.8 3.5-5.1 mmol/L Chloride Level 106 98-107 mmol/L Carbon Dioxide Level 23 21-32 mmol/L Anion Gap 10.0 3-11 mmol/L Blood Urea Nitrogen 4 7-18 mg/dl Creatinine 0.67 0.60-1.20 mg/dl Est Creatinine Clear Calc Drug Dose 179.7 ml/min Estimated GFR () 138.6 Estimated GFR (Non- 119.6 BUN/Creatinine Ratio 5.2 10-20 Random Glucose 92 70-99 mg/dl Calcium Level 8.2 8.5-10.1 mg/dl Ferritin 35.8 8.0-388.0 ng/ml Total Bilirubin 1.1 0.2-1 mg/dl Aspartate Amino Transf (AST/SGOT) 31 15-37 U/L Alanine Aminotransferase (ALT/SGPT) 27 12-78 U/L Alkaline Phosphatase 76 45-117 U/L Total Protein 6.9 6.4-8.2 gm/dl Albumin 3.0 3.4-5.0 gm/dl Globulin 3.9 2.5-4.0 gm/dl Albumin/Globulin Ratio 0.8 0.9-2 White Blood Count 4.11 4.8-10.8 K/uL Red Blood Count 4.44 4.2-5.4 M/uL Hemoglobin 11.3 12.0-16.0 g/dL Hematocrit 35.7 37-47 % Mean Corpuscular Volume 80.4 80-100 fL Mean Corpuscular Hemoglobin 25.5 25-34 pg Mean Corpuscular Hemoglobin Concent 31.7 32-36 g/dl RDW Standard Deviation 58.8 36.4-46.3 fL RDW Coefficient of Variation 19.5 11.5-14.5 % Platelet Count 400 130-400 K/uL Mean Platelet Volume 9.3 7.4-10.4 fL Lactic Acid Level 0.8 0.4-2.0 mmol/L Triglycerides Level 141 0-150 mg/dl Cholesterol Level 170 0-200 mg/dl HDL Cholesterol 56 mg/dl LDL Cholesterol, Calculated 86 mg/dl VLDL Cholesterol, Calculated 28 mg/dl Cholesterol/HDL Ratio 3.0
[2016-12-08] MEDS ORDERED: IBUPROFEN 200 MG TAB PO PRN (16:15)
[2016-12-08 23:54] VITALS: BP 143/88; PULSE 104; TEMP 36.8; O2SAT 98
[2016-12-09 04:22] VITALS: BP 134/96; PULSE 92; TEMP 36.7; O2SAT 98
[2016-12-09 07:17] VITALS: BP 130/91; PULSE 96; TEMP 36.6; O2SAT 99
[2016-12-09] MEDS: RANITIDINE HCL 150 MG TAB PO SCH (08:10)
[2016-12-09] MEDS: MULTIVITAMIN TAB PO SCH (08:10)
--- NOTE | 2016-12-09 08:57 | Progress Note ---
Internal Med Progress Note Date of Service: Dec 09, 2016. Provider Documentation: SUBJECTIVE: Patient is doing much better today and eager to be discharged. Abdominal pain has resolved. No nausea, vomiting No fever, chills, diarrhea, constipation, chest pain. Tolerating regular diet well OBJECTIVE: Vital Signs-as noted below Exam: General-AAOX3, no distress, Morbid obesity Lungs- AEBE, no wheezing Heart-S1, S2 normal Abdomen-Soft, non tender, non distended, BS present Extremities-No edema Lab data as noted below. ASSESSMENT & PLAN: 26 yo F with prior episodes of pancreatitis presents with recurrent episode of abdominal pain. RECURRENT EPISODE OF ACUTE ABDOMINAL PAIN: Resolved Patient has been in hospital this August, September, November 2016 for episodes of abdominal pain, diagnosed with pancreatitis on 2 occasions. Last discharge - per GI note, less likely to be pancreatitis. Had gallstone pancreatitis with cholecystectomy few months ago. Since than on and off has these episodes associated with nausea, vomiting. Has had CT scan abd/pelvis x 4 times, CT angiography , MRCP and GB US in past. This time presented with similar symptoms of nausea, vomiting, epigastric / RLL pain, mildly elevated lipase 400s, CT scan shows no acute inflammatory process. -Etiology of abdominal pain is unclear. Pancreatitis less likely though mildly elevated lipase, but CT scan shows no inflammatory process including pancreas. Appendicitis considered but repeat CT abd with Oral contrast - no appendicitis, No mesentric ischemia. D/D considered: Post cholecystectomy syndrome ? , Spinhcter of oddi dysfunction , porphyria. Urine porphobilogen- pending follow up /hemochromatosis - ferritin -normal . Lactic acid 3.5--> 0.8.. -S/P IVF -Tolerating diet well -Consulted GI- recommends outpatient gastric emptying study but no further intervention needed. -General surgery was consulted for possible appendicitis- recommended CT with oral contrast which came back negative for acute appendicitis MENORRHAGIA - Had some menorrhagia a few months back and was prescribed norethindrone to take but was not given specific instructions on how to take this correctly or when to follow up. Will hold this now and allow her to start menstruating on her own. Needs to use backup method of control in the meantime. Will need follow-up with PCP to readdress need for OCPs. UTERINE FIBROID INTERMITTENT DYSURIA UA negative DEPRESSION/ANXIETY Secondary to ongoing medical problems. -Continue with Ativan PRN MORBID OBESITY. DVT PROPHYLAXIS: SCDs FULL CODE DISPOSITION Eager to be discharged Okay to discharge home today Vital Signs: Date Time Temp Pulse Resp B/P (MAP) Pulse Ox O2 Delivery O2 Flow Rate FiO2 12/09/16 08:00 Room Air 12/09/16 07:17 36.6 96 18 130/91 (104) 99 Room Air 12/09/16 04:22 36.7 92 20 134/96 (109) 98 Room Air 12/09/16 00:30 Room Air 12/08/16 23:54 36.8 104 20 143/88 (106) 98 Room Air 12/08/16 16:00 Room Air 12/08/16 15:44 36.8 91 18 143/99 (114) 97 Room Air Lab Results: Results Past 24 Hours Test 12/08/16 10:57 Range/Units Triglycerides Level 141 0-150 mg/dl Cholesterol Level 170 0-200 mg/dl HDL Cholesterol 56 mg/dl LDL Cholesterol, Calculated 86 mg/dl VLDL Cholesterol, Calculated 28 mg/dl Cholesterol/HDL Ratio 3.0
[2016-12-09] MEDS ORDERED: METO-157 PO (08:58)
--- NOTE | 2016-12-09 09:03 | Discharge Summary ---
Discharge Summary Date of Service Dec 09, 2016. Discharge Summary Admission Date: Dec 06, 2016 at 23:26 Discharge Date: Dec 09, 2016 Discharge Disposition: Home Principal Diagnosis: 1. Abdominal pain, acute inflammatory conditions ruled out Secondary Diagnoses/Problems: 1. Uterine fibroids 2. Depression/Anxiety 3. Morbid obesity Procedures: CT abd/pelvis US abd/pelvis CT angiography IVF Consultations: GI Pending Studies/Follow-Up: Instructions / Follow-Up Instructions / Follow-Up MEDICATION CHANGES: -Tramadol PRN discontinued. Avoid pain medications -Reglan PRN for nausea. If have to use it often, please discuss with PCP. OUTPATIENT TEST WHICH NEEDS TO BE ARRANGED: -Gastric emptying study FOLLOW UP Follow up with Dr Logan Tsai 12/15/16 at 1:00 PM Medication Reconciliation New Medications: Metoclopramide (Reglan) 10 Mg Tab 10 MG PO TID for NAUSEA/VOMITING, #20 TAB NAUSEA Continued Medications: Lorazepam (Ativan) 0.5 Mg Tab 0.5 MG PO TID PRN for Anxiety Multivitamin (Multivitamin) Tab 1 TAB PO DAILY, TAB Norethindrone Acetate (Aygestin) 5 Mg Tab 1 TAB PO DAILY Ranitidine (Zantac) 150 Mg Tab 150 MG PO BID Discontinued Medications: Tramadol (Ultram) 50 Mg Tab 50 MG PO Q6H PRN for Pain, TAB Admission Information HPI (per Admitting provider): 26 yo F presents with intermittent abdominal pain that worsened this morning and was associated with nausea, vomiting and inability to tolerate PO. She has had a 9 month history of abdominal pain since moving home from school in [place]. It is described as in the epigastric area and radiates through to her back. It has come and gone since her cholecystectomy which was in September 2016. She had an admission for epigastric pain in August 2016 and was found to have fatty liver and gastritis/esophagitis on EGD. she was put on PPI and sulcralfate and was improved, but her abdominal pain returned and she was again admitted in September 2016. She underwent a cholecystectomy on 10/11 with a repeat EGD which was normal at that time. She was then readmitted two weeks ago for the same thing, underwent supportive care and was discharged. She felt her abdominal pain come on again last week and started taking her tramadol. Her PCP ordered a lipase which was 67 on 11/29. She did well over the weekend but woke up this morning as above. She is distressed about her situation and the inability to find a cause for what is ongoing. Abdominal u/s was performed and was unrevealing for an acute cause of her pain. She otherwise has persistent intermittent dysuria, a uterine fibroid, and she reports not having a period for two weeks after starting to take an OCP called norethindrone for a h/o mennorhagia. This medication was [place] physician [place] and she didn't understand instructions of use (such as Tuesday start, etc). She just started taking it and continued taking it. Physical Exam (per Admitting): General Appearance: WD/WN, + severe distress, + obese Head: normocephalic, atraumatic Eyes: normal inspection, sclerae normal ENT: hearing grossly normal, pharynx normal, + pertinent finding (moist mucous membranes) Neck: supple, no adenopathy, trachea midline Respiratory/Chest: lungs clear, normal breath sounds, no respiratory distress, no accessory muscle use Cardiovascular: regular rate, rhythm, no edema, no murmur, normal peripheral pulses Abdomen/GI: normal bowel sounds, soft, + tenderness, + pertinent finding ( exquisitely tender to palp all over abdomen, fearful with lots of guarding, limited exam 2/2 severe pain, +CVA tendernes on R) Back: normal inspection Extremities/Musculoskelatal: normal inspection, no pedal edema, normal range of motion Neurologic/Psych: alert, + depressed affect (tearful) Skin: normal color Hospital Course 26 yo F with prior episodes of pancreatitis presents with recurrent episode of abdominal pain. RECURRENT EPISODE OF ACUTE ABDOMINAL PAIN: Resolved Patient has been in hospital this August, September, November 2016 for episodes of abdominal pain, diagnosed with pancreatitis on 2 occasions. Last discharge - per GI note, less likely to be pancreatitis. Had gallstone pancreatitis with cholecystectomy few months ago. Since than on and off has these episodes associated with nausea, vomiting. Has had CT scan abd/pelvis x 4 times, CT angiography , MRCP and GB US in past. This time presented with similar symptoms of nausea, vomiting, epigastric / RLL pain, mildly elevated lipase 400s, CT scan shows no acute inflammatory process. -Etiology of abdominal pain is unclear. Pancreatitis less likely though mildly elevated lipase, but CT scan shows no inflammatory process including pancreas. Appendicitis considered but repeat CT abd with Oral contrast - no appendicitis, No mesentric ischemia. D/D considered: Post cholecystectomy syndrome ? , Spinhcter of oddi dysfunction , porphyria. Urine porphobilogen- pending follow up /hemochromatosis - ferritin -normal . Lactic acid 3.5--> 0.8.. -S/P IVF -Tolerating diet well -Consulted GI- recommends outpatient gastric emptying study but no further intervention needed. -General surgery was consulted for possible appendicitis- recommended CT with oral contrast which came back negative for acute appendicitis MENORRHAGIA - Had some menorrhagia a few months back and was prescribed norethindrone to take but was not given specific instructions on how to take this correctly or when to follow up. Will hold this now and allow her to start menstruating on her own. Needs to use backup method of control in the meantime. Will need follow-up with PCP to readdress need for OCPs. UTERINE FIBROID INTERMITTENT DYSURIA UA negative for UTI DEPRESSION/ANXIETY Secondary to ongoing medical problems. -Continue with Ativan PRN MORBID OBESITY. DVT PROPHYLAXIS: SCDs FULL CODE DISPOSITION Eager to be discharged Okay to discharge home today Total time spent on discharge = 25 minutes This includes examination of the patient, discharge planning, medication reconciliation, and communication with other providers. Discharge Instructions Discharge Goals Goal(s): Diagnostic testing Activity Recommendations Activity Limitations: resume your previous activity . Instructions / Follow-Up Instructions / Follow-Up MEDICATION CHANGES: -Tramadol PRN discontinued. Avoid pain medications -Reglan PRN for nausea. If have to use it often, please discuss with PCP. OUTPATIENT TEST WHICH NEEDS TO BE ARRANGED: -Gastric emptying study FOLLOW UP Follow up with Dr Logan Tsai 12/15/16 at 1:00 PM Current Hospital Diet Patient's current hospital diet: Low Sodium Diet (2gm Na), Low Fat Diet Discharge Diet Recommended Diet: AHA Diet (Heart Healthy), Low Sodium Diet (2gm Na) Pending Studies Studies pending at discharge: no Laboratory Results Lipid Panel Test 12/08/16 10:57 Range/Units Triglycerides Level 141 0-150 mg/dl Cholesterol Level 170 0-200 mg/dl HDL Cholesterol 56 mg/dl Cholesterol/HDL Ratio 3.0 LDL Cholesterol, Calculated 86 mg/dl Medical Emergencies . Who to Call and When: Medical Emergencies: If at any time you feel your situation is an emergency, please call 911 immediately. . Non-Emergent Contact Non-Emergency issues call your: Primary Care Provider . . "Provider Documentation" section prepared by Vandana Eisenberg.
[2016-12-09 10:07] VITALS: BP 130/91; PULSE 96; TEMP 36.6; O2SAT 99
== END 2016-12-09 11:07 | disposition home or self-care (01) | DRG 392 ==
LOC: C.EDB 21:07 → C.MS4W 23:26 → ENRESERV 23:56 → C.MS4W 12-07 08:17
PROVIDERS: ADMIT Hospitalist; ATTEND Internal Medicine
DX: R10.13 Epigastric pain (principal); Z68.42 Body mass index [BMI] 45.0-49.9, adult; R11.2 Nausea with vomiting, unspecified; E66.01 Morbid (severe) obesity due to excess calories; R30.0 Dysuria; N92.1 Excessive and frequent menstruation with irregular cycle; D25.9 Leiomyoma of uterus, unspecified; F41.9 Anxiety disorder, unspecified; F32.9 Major depressive disorder, single episode, unspecified; Z79.899 Other long term (current) drug therapy; Z87.19 Personal history of other diseases of the digestive system; Z90.49 Acquired absence of other specified parts of digestive tract; Z83.3 Family history of diabetes mellitus; Z82.49 Family history of ischemic heart disease and other diseases of the circulatory system; Z84.1 Family history of disorders of kidney and ureter; Z83.79 Family history of other diseases of the digestive system; Z82.61 Family history of arthritis

== ENCOUNTER 2017-01-12 08:53 | Emergency (ER) | payer BC ==
[~2017-01-12] VITALS: Ht 167.6 cm; Wt 140.0 kg
[~2017-01-12 08:53] MED LIST changes: +AYG/5 PO; +METO-157 PO; +MULT-506 PO; -ULT50X PO
[2017-01-12 08:57] VITALS: TEMP 37.1; Ht 167.6 cm; Wt 140.0 kg
[2017-01-12 09:15] VITALS: O2SAT 97
[2017-01-12] MEDS ORDERED: MISCCAP80 PO (09:15)
[2017-01-12] MEDS ORDERED: MECLIZINE HCL 25 MG TAB PO STA (09:17)
[2017-01-12] MEDS ORDERED: DiphenhydrAMINE HCL 50 MG/ML VIAL IV STA (09:17)
[2017-01-12] MEDS ORDERED: PROMETHAZINE HCL INJ 6.25 MG in SODIUM CHLORIDE 0.9% 50ML 50 ML IV STA (09:17)
[2017-01-12] MEDS ORDERED: KETOROLAC TROMETHAMINE 30 MG/ML VIAL IV STA (09:17)
[2017-01-12] MEDS ORDERED: SODIUM CHLORIDE 0.9% 1000ML 1,000 ML IV STA ×2 (09:17→11:09)
--- NOTE | 2017-01-12 09:28 | EMERGENCY ROOM VISIT NOTE ---
History Report prepared by Batsheva: Angélica Terry Under the Supervision of: Dr. Mathew Murdock M.D. First contact with patient: 09:11 Chief Complaint: SYNCOPE Stated Complaint: PASSED OUT, HEADACHE, ILL Nursing Triage Summary: triage note; pt reports "i am really dizzy and i passed out a couple times." pt reports headache at this time. pt reorts she passed out twice last night "i didn't want to come [facility] to the hospital." pt reports she passed out this am while getting dressed. pt states "my head hurts so bad." History of Present Illness The patient is a 26 year old female who presents to the Emergency Room with complaints of a sudden syncopal episode that occurred prior to arrival. She currently rates her discomfort as a 9/10 in severity. The patient states that since last night she has been feeling lightheaded and dizzy. She describes the dizziness as a room spinning sensation. The patient states that movement worsens her dizziness. She denies any history of vertigo. The patient denies ever having any symptoms like this in the past. She states that she did have several syncopal episodes as well. The patient denies any fever, nausea, vomiting, diarrhea, or urinary symptoms. She does report a persistent headache , but denies any fall or head trauma. The patient states that her headache is located to the frontal region of her head and states that it began last evening. She states that light worsens her headache and movement worsens her dizziness. The patient denies any history of migraines. She reports a history of abdominal problems, noting that she has recently been changing her diet, stating that she stopped eating gluten. The patient reports increased stress recently. Source of History: patient Onset: prior to arrival Position: other (global) Symptom Intensity: 9/10 Quality: other (syncopal episode) Timing: other (sudden) Associated Symptoms: + headache, No fevers, No nausea, No vomiting, No diarrhea, No urinary symptoms Note: Associated symptoms: dizziness, lightheadedness, room spinning sensation Review of Systems See HPI for pertinent positives & negatives. A total of 10 systems reviewed and were otherwise negative. Past Medical & Surgical Medical Problems: (1) Abdominal pain (2) Abnormal vaginal bleeding (3) Acute pancreatitis (4) Depression (5) Elevated bilirubin (6) Gastritis (7) Hepatic steatosis (8) Morbid (severe) obesity due to excess calories (9) Morbid obesity (10) Pancreatitis (11) Uterine fibroid (12) Uterine fibroid Surgical Problems: (1) H/O esophagogastroduodenoscopy (2) History of esophagogastroduodenoscopy (EGD) (3) S/P cholecystectomy Family History Diabetes mellitus FATHER FH: kidney failure FATHER FH: rheumatoid arthritis MOTHER FHx: pancreatic disease Uncle (Uncle from pancreatitis) Heart disease FATHER Social History Smoking Status: Never Smoker Alcohol Use: occasionally Drug Use: none Marital Status: single Housing Status: lives alone 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, other Current/Historical Medications Scheduled Cephalexin Monohydrate (Keflex), 500 MG PO TID Multivitamin (Multivitamin), 1 TAB PO DAILY Probiotic Product (Probiotic), 1 CAP PO DAILY Ranitidine (Zantac), 150 MG PO BID Scheduled PRN Meclizine HCl (Meclizine HCl), 1 TAB PO Q6 PRN for Dizziness or Vertigo Allergies Coded Allergies: Ondansetron (Verified Allergy, Unknown, lip tingling, 01/12/17) Morphine (Verified Adverse Reaction, Intermediate, ITCHINESS, 01/12/17) Physical Exam Vital Signs Date Time Temp Pulse Resp B/P (MAP) Pulse Ox O2 Delivery O2 Flow Rate FiO2 01/12/17 13:01 93 01/12/17 13:00 95 16 110/76 97 Room Air 01/12/17 11:03 103 20 136/92 99 Room Air 01/12/17 10:08 102 20 117/80 98 Room Air 01/12/17 09:18 100 01/12/17 09:15 97 Room Air 01/12/17 08:57 37.1 105 18 148/107 99 Room Air Physical Exam GENERAL: Patient is in no acute distress. HEENT: No acute trauma, normocephalic atraumatic, mucous membranes moist, no nasal congestion, no scleral icterus. Pupils are equal and reactive to light. NECK: No stridor, no adenopathy, no meningismus, trachea is midline. LUNGS: Clear to auscultation bilaterally, no wheeze, no rhonchi, breath sounds equal. HEART: Without murmurs gallops or rubs, regular rate and rhythm. ABDOMEN: Soft, nontender, bowel sounds positive, no hernias, no peritonitis. EXTREMITIES: No cyanosis or edema, full range of motion of all the joints without pain or difficulty, no signs for acute trauma. NEUROLOGIC: Oriented x 3, no acute motor or sensory deficits, no focal weakness. No cerebellar deficits, no pronator drift SKIN: No rash, no jaundice, no diaphoresis. Medical Decision & Procedures ER Provider Diagnostic Interpretation: CT results as stated below per my review and radiologist interpretation: HEAD CT NONCONTRAST CT DOSE: 690.05 mGycm HISTORY: Headache. EVALUATE ALTERED MENTAL STATUS/WEAKNESS TECHNIQUE: Multiaxial CT images of the head were performed without the use of intravenous contrast. Automated exposure control was utilized for this study. A dose lowering technique was utilized adhering to the principles of ALARA. Comparison: None. Findings: The paranasal sinuses and mastoid air cells are clear. The calvarium and skull base are intact. The ventricles and sulci are within normal limits. There is no mass, hematoma, midline shift, or acute infarct. Impression: No acute intracranial abnormality. Electronically signed by: Gaston Kennedy M.D. 01/12/2017 9:54 AM Dictated Date/Time: 01/12/2017 9:51 AM Laboratory Results 01/12/17 09:15 Red Blood Count 4.60, Mean Corpuscular Volume 84.1, Mean Corpuscular Hemoglobin 26.3, Mean Corpuscular Hemoglobin Concent 31.3, Mean Platelet Volume 9.4, Neutrophils (%) (Auto) 32.8, Lymphocytes (%) (Auto) 57.6, Monocytes (%) (Auto) 6.5, Eosinophils (%) (Auto) 1.9, Basophils (%) (Auto) 0.8, Neutrophils # (Auto) 1.57, Lymphocytes # (Auto) 2.76, Monocytes # (Auto) 0.31, Eosinophils # (Auto) 0.09, Basophils # (Auto) 0.04 01/12/17 09:15 Test 01/12/17 09:15 01/12/17 11:10 White Blood Count 4.79 K/uL (4.8-10.8) Red Blood Count 4.60 M/uL (4.2-5.4) Hemoglobin 12.1 g/dL (12.0-16.0) Hematocrit 38.7 % (37-47) Mean Corpuscular Volume 84.1 fL (80-100) Mean Corpuscular Hemoglobin 26.3 pg (25-34) Mean Corpuscular Hemoglobin Concent 31.3 g/dl (32-36) Platelet Count 357 K/uL (130-400) Mean Platelet Volume 9.4 fL (7.4-10.4) Neutrophils (%) (Auto) 32.8 % Lymphocytes (%) (Auto) 57.6 % Monocytes (%) (Auto) 6.5 % Eosinophils (%) (Auto) 1.9 % Basophils (%) (Auto) 0.8 % Neutrophils # (Auto) 1.57 K/uL (1.4-6.5) Lymphocytes # (Auto) 2.76 K/uL (1.2-3.4) Monocytes # (Auto) 0.31 K/uL (0.11-0.59) Eosinophils # (Auto) 0.09 K/uL (0-0.5) Basophils # (Auto) 0.04 K/uL (0-0.2) RDW Standard Deviation 55.9 fL (36.4-46.3) RDW Coefficient of Variation 18.7 % (11.5-14.5) Immature Granulocyte % (Auto) 0.4 % Immature Granulocyte # (Auto) 0.02 K/uL (0.00-0.02) Hypochromasia PRESENT Stomatocytes 1+ Anion Gap 8.0 mmol/L (3-11) Est Creatinine Clear Calc Drug Dose 142.4 ml/min Estimated GFR () 108.1 Estimated GFR (Non- 93.2 BUN/Creatinine Ratio 8.2 (10-20) Calcium Level 8.0 mg/dl (8.5-10.1) Total Bilirubin 0.5 mg/dl (0.2-1) Aspartate Amino Transf (AST/SGOT) 119 U/L (15-37) Alanine Aminotransferase (ALT/SGPT) 86 U/L (12-78) Alkaline Phosphatase 105 U/L (45-117) Troponin I < 0.015 ng/ml (0-0.045) Total Protein 7.7 gm/dl (6.4-8.2) Albumin 3.5 gm/dl (3.4-5.0) Globulin 4.2 gm/dl (2.5-4.0) Albumin/Globulin Ratio 0.8 (0.9-2) Thyroid Stimulating Hormone (TSH) 0.693 uIu/ml (0.300-4.500) Human Chorionic Gonadotropin, Qual NEG (NEG) Urine Color DK YELLOW Urine Appearance CLOUDY (CLEAR) Urine pH 5.5 (4.5-7.5) Urine Specific [place] 1.028 (1.000-1.030) Urine Protein TRACE (NEG) Urine Glucose (UA) NEG (NEG) Urine Ketones TRACE (NEG) Urine Occult Blood NEG (NEG) Urine Nitrite NEG (NEG) Urine Bilirubin NEG (NEG) Urine Urobilinogen NEG (NEG) Urine Leukocyte Esterase MODERATE (NEG) Urine WBC (Auto) >30 /hpf (0-5) Urine RBC (Auto) 0-4 /hpf (0-4) Urine Hyaline Casts (Auto) 1-5 /lpf (0-5) Urine Epithelial Cells (Auto) >30 /lpf (0-5) Urine Bacteria (Auto) 1+ (NEG) Urine Crystals CALCIUM OXALATE (NONE Urine Pathogenic Casts /lpf (0) Laboratory results reviewed by me. Medications Administered Medications (Trade) Dose Ordered Sig/Marlin Route Start Time Stop Time Status Last Admin Dose Admin Sodium Chloride 1,000 ml @ 999 mls/hr Q1H1M STAT IV 01/12/17 09:17 01/12/17 10:17 DC 01/12/17 09:29 999 MLS/HR Meclizine HCl (Antivert Tab) 25 mg NOW STAT PO 01/12/17 09:17 01/12/17 09:22 DC 01/12/17 09:29 25 MG Promethazine HCl 6.25 mg/Sodium Chloride 50.25 ml @ 204 mls/hr NOW STAT IV 01/12/17 09:17 01/12/17 09:31 DC 01/12/17 10:07 204 MLS/HR Diphenhydramine HCl (Benadryl Inj) 25 mg NOW STAT IV 01/12/17 09:17 01/12/17 09:22 DC 01/12/17 09:29 25 MG Ketorolac Tromethamine (Toradol Inj) 30 mg NOW STAT IV 01/12/17 09:17 01/12/17 09:22 DC 01/12/17 09:29 30 MG Sodium Chloride 1,000 ml @ 999 mls/hr Q1H1M STAT IV 01/12/17 11:09 01/12/17 12:20 DC 01/12/17 11:13 999 MLS/HR Ceftriaxone Sodium (Rocephin Inj) 1 gm NOW STAT IV 01/12/17 13:28 01/12/17 13:29 DC 01/12/17 13:37 1 GM ECG Indication: syncope Rate (beats per minute): 101 Rhythm: sinus tachycardia Findings: no acute ischemic change, no ectopy ED Course 0915: The patient was evaluated in room B9. A complete history and physical exam was performed. 0917: Ordered Toradol Inj 30 mg IV, Benadryl Inj 25 mg IV, Promethazine HCl 6.25 mg/Sodium Chloride 50.25 ml @ 204 mls/hr IV, Antivert Tab 25 mg PO, Sodium Chloride 1000 ml @ 999 mls/hr IV. 1109: Ordered Sodium Chloride 1000 ml @ 999 mls/hr IV. 1217: I reevaluated the patient and she is feeling better, but still a little dizzy. She was able to go to the bathroom okay and she is still receiving fluids. 1326: I reevaluated the patient and she is resting comfortably. I discussed the exam findings with her and I discussed the treatment plan. She does note recent burning with urination. She verbalized complete understanding and agreement. She is ready to go home. 1328: Ordered Rocephin Inj 1 gm IV. Medical Decision The patient is a 26 year old female who presents to the ED with complaints of sudden syncopal episode. Differential diagnoses considered include Vertigo, dehydration, migraine headache, meningitis, intracranial bleeding, stroke, UTI, viral illness. There is no leukocytosis or concerning anemia. Renal panel testing suggests some dehydration, no kidney failure. EKG shows a sinus tachycardia, no acute ischemia. Cardiac enzyme testing times one is not consistent with acute cardiac injury. Brain CT shows no acute bleed or mass effect. Urinalysis shows infection versus contamination, urine culture is pending. The patient appears to be in a euthyroid state. There were a few scattered liver enzyme elevations. The patient received IV saline, IV Phenergan, IV Benadryl, IV Toradol. She was given IV ceftriaxone. She was given oral meclizine. The patient feels improved, her heart rate has improved. She has been up to the bathroom without difficulty. Her headache is resolving. I suspect the patient is dehydrated. She may have a viral illness. Her headache sounds for migrainous. The urine looks possibly infected and this may be the root of all her issues. I am going to treat her with Keflex 3 times a day for a week. Meclizine for vertigo and nausea. The patient was encouraged to return to this ER for worsening symptoms or if not improving. Over-the- counter pain medication was suggested, rest and hydration were suggested. Impression Primary Impression: Dehydration Additional Impressions: Syncope UTI (urinary tract infection) Headache Scribe Attestation The scribe's documentation has been prepared under my direction and personally reviewed by me in its entirety. I confirm that the note above accurately reflects all work, treatment, procedures, and medical decision making performed by me. Departure Information Dispostion Home / Self-Care Prescriptions Meclizine HCl (Meclizine HCl) 25 Mg Tab 1 TAB PO Q6 Y for Dizziness or Vertigo, #12 TAB Prov: Mathew Murdock M.D. 01/12/17 Cephalexin Monohydrate (Keflex) 500 Mg Cap 500 MG PO TID for 7 Days, #21 CAP Prov: Mathew Murdock M.D. 01/12/17 Referrals Logan Tsai, D.O. (PCP) Forms HOME CARE DOCUMENTATION FORM, IMPORTANT VISIT INFORMATION, Work Instructions Patient Instructions My [facility] Additional Instructions tylenol or motrin for pain rest fluids stay well hydrated keflex 3x per day for 1 week meclizine 1 tab every 6 hours for dizziness return if worsening or not improving see neto alcazar for a recheck this week Problem Qualifiers
[2017-01-12 09:40] LABS: HEMATOCRIT 38.7 % (37-47); MEAN CELL VOLUME 84.1 fL (80-100); MEAN CORPUSCULAR HEMOGLOBIN 26.3 pg (25-34); MEAN CORPUSCULAR HGB CONC 31.3 g/dl (32-36); MEAN PLATELET VOLUME 9.4 fL (7.4-10.4); PLATELET COUNT 357 K/uL (130-400); WHITE BLOOD COUNT 4.79 K/uL (4.8-10.8)
[2017-01-12 09:50] LABS: ALT/SGPT 86 U/L (12-78); BLOOD UREA NITROGEN 7 mg/dl (7-18); BUN/CREATININE RATIO 8.2 (10-20); CARBON DIOXIDE 26 mmol/L (21-32); CHLORIDE 112 mmol/L (98-107); CREATININE 0.85 mg/dl (0.60-1.20); GLUCOSE 96 mg/dl (70-99); POTASSIUM 3.9 mmol/L (3.5-5.1); SODIUM 146 mmol/L (136-145)
--- NOTE | 2017-01-12 09:55 | DIAGNOSTIC IMAGING REPORT ---
HEAD CT NONCONTRAST CT DOSE: 690.05 mGycm HISTORY: Headache. EVALUATE ALTERED MENTAL STATUS/WEAKNESS TECHNIQUE: Multiaxial CT images of the head were performed without the use of intravenous contrast. Automated exposure control was utilized for this study. A dose lowering technique was utilized adhering to the principles of ALARA. Comparison: None. Findings: The paranasal sinuses and mastoid air cells are clear. The calvarium and skull base are intact. The ventricles and sulci are within normal limits. There is no mass, hematoma, midline shift, or acute infarct. Impression: No acute intracranial abnormality. Electronically signed by: Gaston Kennedy M.D. 01/12/2017 9:54 AM Dictated Date/Time: 01/12/2017 9:51 AM
[2017-01-12 10:01] LABS: ALB/GLOB RATIO 0.8 (0.9-2); ALKALINE PHOSPHATASE 105 U/L (45-117); AST/SGOT 119 U/L (15-37); THYROID STIMULATING HORMONE 0.693 uIu/ml (0.300-4.500)
[2017-01-12 10:38] LABS: BASO % 0.8 %; BASO ABS # 0.04 K/uL (0-0.2); COMPLETE YES; EOS % 1.9 %; HYPOCHROMIA PRESENT; IG% 0.4 %; LYMPH % 57.6 %; LYMPH ABS # 2.76 K/uL (1.2-3.4); MONO % 6.5 %; NEUT % 32.8 %; STOMATOCYTE 1+
[2017-01-12 12:05] LABS: PREG INTERNAL NEGATIVE QC NEG CLEAR BACKGROUND; PREG INTERNAL POSITIVE QC POS CONTROL LINE
[2017-01-12 12:11] LABS: URINE APPEARANCE CLOUDY (CLEAR); URINE BILIRUBIN NEG (NEG); URINE COLOR DK YELLOW; URINE EPITHELIAL CELL AUTO >30 /lpf (0-5); URINE NITRITE NEG (NEG); URINE PH 5.5 (4.5-7.5); URINE SPECIFIC GRAVITY 1.028 (1.000-1.030); UROBILINOGEN NEG (NEG); ZZUR CULT IF INDIC CLEAN CATCH YES
[2017-01-12 12:18] LABS: MANUAL MICROSCOPIC REQUIRED? NO; REVIEW REQ? YES
[2017-01-12] MEDS ORDERED: CEFTRIAXONE SOD INJ 1 GM ADDVIAL IV STA (13:28)
[2017-01-12] MEDS ORDERED: CEPH500C PO (13:33)
[2017-01-12] MEDS ORDERED: ANT25 PO (13:33)
[2017-01-12 14:23] VITALS: BP 151/92; PULSE 95; O2SAT 98
== END 2017-01-12 14:25 | disposition home or self-care (01) ==
LOC: C.EDB 08:54
DX: E86.0 Dehydration (principal); R55 Syncope and collapse; N39.0 Urinary tract infection, site not specified; R51 Headache; F32.9 Major depressive disorder, single episode, unspecified; K29.70 Gastritis, unspecified, without bleeding; N28.89 Other specified disorders of kidney and ureter; E66.01 Morbid (severe) obesity due to excess calories; Z83.3 Family history of diabetes mellitus; Z84.1 Family history of disorders of kidney and ureter; Z83.79 Family history of other diseases of the digestive system; Z79.899 Other long term (current) drug therapy

== ENCOUNTER 2017-01-18 07:42 | Inpatient (IN) | payer BC ==
[~2017-01-18] VITALS: Ht 167.6 cm; Wt 133.8 kg
[~2017-01-18 07:42] MED LIST changes: +ANT25 PO; -AYG/5 PO; +CEPH500C PO; -LORA-741 PO; -METO-157 PO; +MISCCAP80 PO
[2017-01-18] MEDS ORDERED: SODIUM CHLORIDE 0.9% 1000ML 1,000 ML IV STA (08:07)
[2017-01-18] MEDS ORDERED: METOCLOPRAMIDE HCL INJ 5 MG/ML 2 ML VIAL IV STA (08:07)
[2017-01-18 08:31] LABS: BASO % 0.4 %; BASO ABS # 0.02 K/uL (0-0.2); COMPLETE YES; EOS % 0.2 %; IG% 0.2 %; LYMPH % 30.1 %; LYMPH ABS # 1.57 K/uL (1.2-3.4); MEAN CORPUSCULAR HEMOGLOBIN 27.4 pg (25-34); MEAN PLATELET VOLUME 9.6 fL (7.4-10.4); MONO % 5.9 %; NEUT % 63.2 %; PLATELET COUNT 223 K/uL (130-400); RED BLOOD COUNT 4.82 M/uL (4.2-5.4); WHITE BLOOD COUNT 5.22 K/uL (4.8-10.8)
[2017-01-18 08:39] LABS: INR 1.1 (0.9-1.1); PARTIAL THROMBOPLASTIN RATIO 0.9; PROTHROMBIN TIME (PATIENT) 11.3 SECONDS (9.0-12.0)
[2017-01-18 08:48] LABS: BUN/CREATININE RATIO 7.8 (10-20); CALCIUM 9.3 mg/dl (8.5-10.1); CREATININE 0.97 mg/dl (0.60-1.20); POTASSIUM 3.7 mmol/L (3.5-5.1)
[2017-01-18 09:06] LABS: PREG INTERNAL NEGATIVE QC NEG CLEAR BACKGROUND; PREG INTERNAL POSITIVE QC POS CONTROL LINE
[2017-01-18] MEDS ORDERED: HYDROmorphone INJ 1 MG/ML SYR IV STA (09:14)
[2017-01-18] MEDS ORDERED: OPTIRAY 320 IV PRN (09:30)
--- NOTE | 2017-01-18 09:58 | DIAGNOSTIC IMAGING REPORT ---
ABD/PELVIS IV CONTRAST ONLY HISTORY: 26 years-old Female acute abdominal pain, elevated liver and pancreatic labs COMPARISON: CT abdomen and pelvis 12/07/2016 TECHNIQUE: Multiple axial CT images of the abdomen and pelvis were obtained following the intravenous administration of 93 mL Optiray 320. A dose lowering technique was used consistent with the principals of LLOYD. FINDINGS: Lung bases are clear. No pneumoperitoneum. Morbid obesity is noted. The imaged inferior cardiac chambers are unremarkable. Prior cholecystectomy. Hepatomegaly with severe hepatosteatosis noted. The spleen and adrenal glands are within normal limits. Mild mesenteric stranding is seen surrounding the pancreatic head and proximal duodenum with minimal edema tracking along the hepatic flexure. No biliary ductal dilation identified. Kidneys, ureters and urinary bladder are unremarkable. Subcentimeter low attenuating 6 mm lesion of the posterior interpolar left kidney is indeterminate, however suggests cyst. Uterus and adnexa are unremarkable. The abdominal aorta is normal in course and caliber. No bulky adenopathy. There is a small sliding-type hiatal hernia. Mild wall thickening involves the proximal duodenum. There is no bowel obstruction. The appendix is mildly dilated, 10 mm at its tip without associated inflammation. Bones are intact. IMPRESSION: 1. Mild inflammatory stranding surrounding the pancreatic head and proximal duodenum with minimal edema tracking along the hepatic flexure is nonspecific, however suggests developing acute pancreatitis with reactive changes of the adjacent duodenum. Correlate with lipase level. 2. Hepatomegaly with severe hepatosteatosis. 3. Prior cholecystectomy. 4. Mild dilation of the appendiceal tip, 10 mm without inflammatory stranding to suggest acute appendicitis. The above report was generated using voice recognition software. It may contain grammatical, syntax or spelling errors. Electronically signed by: Daniel Wagoner M.D. 01/18/2017 9:56 AM Dictated Date/Time: 01/18/2017 9:49 AM
[2017-01-18] MEDS ORDERED: PROMETHAZINE HCL INJ 12.5 MG in SODIUM CHLORIDE 0.9% 50ML 50 ML IV PRN (11:30)
[2017-01-18] MEDS ORDERED: SODIUM CHLORIDE 0.9% 1000ML 1,000 ML IV SCH (11:30)
[2017-01-18] MEDS ORDERED: LORA0.5T12 PO (11:51)
--- NOTE | 2017-01-18 12:59 | DIAGNOSTIC IMAGING REPORT ---
ABDOMINAL ULTRASOUND, RIGHT UPPER QUADRANT HISTORY: Right upper quadrant abdominal pain. COMPARISON: CT of the abdomen and pelvis January 18, 2017. FINDINGS: Hepatic echogenicity is increased. There is no biliary ductal dilatation status post cholecystectomy. The common bile duct measures 5 mm in caliber. The pancreas is largely obscured due to suboptimal penetration related to body habitus. There is no right hydronephrosis. IMPRESSION: 1. Fatty infiltration of the liver. 2. No biliary ductal dilatation status post cholecystectomy. 3. Largely obscured pancreas. Electronically signed by: Kadeem Fuentes M.D. 01/18/2017 12:57 PM Dictated Date/Time: 01/18/2017 12:53 PM
--- NOTE | 2017-01-18 13:01 | DIAGNOSTIC IMAGING REPORT ---
DOPPLER ULTRASOUND OF THE MAJOR HEPATIC VESSELS CLINICAL HISTORY: Right upper quadrant abdominal pain. COMPARISON STUDY: CT of the abdomen and pelvis January 18, 2017. FINDINGS: Increased hepatic echogenicity suggests fatty infiltration. The middle, left and right hepatic veins are patent. The main, left and right portal veins are patent with appropriately directed flow. IMPRESSION: 1. Patent major hepatic vessels with appropriately directed flow. 2. Fatty infiltration of the liver. Electronically signed by: Kadeem Fuentes M.D. 01/18/2017 12:59 PM Dictated Date/Time: 01/18/2017 12:58 PM
[2017-01-18 13:27] VITALS: BP 123/93; PULSE 100; TEMP 36.5; O2SAT 100; Ht 167.6 cm; Wt 133.8 kg
--- NOTE | 2017-01-18 13:52 | Gastrointestinal Consultation ---
Gastrointestinal Consultation Date of Consultation: Jan 18, 2017 Attending Physician: Geovanna Wolff NP [facility] Hospitalist Consulting Physician: Dr. Damon Reason for Consultation: Pancreatitis History of Present Illness Patient is a 26 year old female patient of Dr. Logan Tsai with a hx of UTIs , uterine fibroid, esophagitis, who presents for recurrent pancreatitis for which GI is consulted. Her initial episode was in August. At that time, she experienced these pain symptoms but imaging, LFTs and lipase were normal though LA grade B esophagitis was found on EGD. In September 22, she returned with the upper abdomen pain and at that time, Ct was normal but lipase was >1000. She improved and was discharged but returned again later in September, lipase was >[address] of the pancreas was normal and she underwent EUS with gallbladder sludge, then lap choley on October 12 with mild chronic cholecystitis on gallbladder pathology. She did well until November 19 when she returned with pain , mild lipase elevated, normal CT scan. She returned again December 06 and lipase was again mildly elevated, CT angiogram that was normal. Regarding this episode, last week she experienced some mild abdominal pain for about 2 days that resolved without treatment. Yesterday around noon she experienced moderately severe pain, nausea, persistent vomiting. These symptoms kept her awake all night last night. Her pain is RUQ, right middle abdomen, across the lower anterior ribs and this time, radiating to her back. This morning, she presented to the ED. On arrival, Ct with IV, no oral contrast suggested pancreatitis with mild inflammatory stranding surrounding the pancreatic head and proximal duodenum with minimal edema tracking along the hepatic flexure. Though she has had mild AST elevation in the past, on this admission, she has elevation of all the liver function markers: TB 2.0, DB 0.6, AT 350, ALT 156, Alk Phos is normal at 115, lipase is mildly elevated at 514. She also notes that recently she has had mucousy stools for about one week. Cr and WBC are normal. She is seen and examined while resting in bed though she has had several vomiting episodes with emesis consisting of bilious fluid during my interview. Past Medical/Surgical History Medical Problems: (1) Dehydration Status: Acute (2) Dehydration Status: Acute (3) Headache Status: Acute (4) Intractable abdominal pain Status: Acute (5) Intractable abdominal pain Status: Acute (6) Intractable nausea and vomiting Status: Acute (7) Pancreatic mass Status: Acute (8) Pancreatitis Status: Acute (9) Pancreatitis Status: Acute (10) Pancreatitis Status: Chronic (11) Syncope Status: Acute (12) UTI (urinary tract infection) Status: Acute Surgical Problems: (1) History of esophagogastroduodenoscopy (EGD) Permanent Comment: 09/01/16- - LA Grade B reflux esophagitis Status: Chronic Past Medical History: 1. UTIs 2. Esophagitis 3. Pancreatitis Past Surgical History: Lap cholecystectomy on October 12, 2016. Family History Diabetes mellitus FATHER FH: kidney failure FATHER FH: rheumatoid arthritis MOTHER FHx: pancreatic disease Uncle (Uncle from pancreatitis) Heart disease FATHER Social History Smoking Status: Never Smoker Alcohol Use: occasionally Drug Use: none Marital Status: single Housing Status: lives alone 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, other Allergies Coded Allergies: Ondansetron (Verified Allergy, Unknown, lip tingling, 01/18/17) Morphine (Verified Adverse Reaction, Intermediate, ITCHINESS, 01/18/17) Current Medications Home Meds and Scripts Medications Dose Route/Sig Max Daily Dose Days Date Category Lorazepam 0.5 Mg Tab 1 Tab PO TID PRN 30 01/18/17 Reported Meclizine HCl 25 Mg Tab 1 Tab PO Q6 PRN 01/12/17 Rx Keflex (Cephalexin Monohydrate) 500 Mg Cap 500 Mg PO TID 7 01/12/17 Rx Probiotic (Probiotic Product) 1 Cap Cap 1 Cap PO DAILY 01/12/17 Reported Multivitamin (Multivitamins) Tab 1 Tab PO DAILY 12/06/16 Reported Zantac (Ranitidine HCl) 150 Mg Tab 150 Mg PO BID 11/19/16 Reported Review of Systems Constitutional: No fever, No chills, No sweats, No weight loss, No weakness Eyes: No eye pain, No redness ENT: No sore throat, No trouble swallowing, No pain on swallowing Respiratory: No cough, No wheezing, No shortness of breath, No dyspnea on exertion Cardiac: No chest pain, No edema, No palpitations Abdomen: + see HPI, + pain, + nausea, + vomiting, + problem reported (mucousy stools) Neuro: No memory loss, No weakness, No numbness/tingling, No vertigo, No balance problems Psych: No depression symptoms, No anxiety, No insomnia Heme: No abnormal bleeding/bruising, No night sweats Endo: No excessive thirst, No excessive urination Skin: No rash, No itch, No new/changing skin lesions, No jaundice Physical Exam Date Time Temp Pulse Resp B/P (MAP) Pulse Ox O2 Delivery O2 Flow Rate FiO2 01/18/17 12:05 103 18 158/105 100 01/18/17 11:40 103 18 158/105 100 Room Air 01/18/17 09:50 109 14 137/85 01/18/17 09:22 110 15 131/95 01/18/17 08:34 130 18 158/105 97 Room Air 01/18/17 08:29 160 01/18/17 07:43 36.5 136 18 165/114 96 Room Air General Appearance: + moderate distress Eyes: normal inspection, EOMI Neck: supple, no adenopathy, thyroid normal Respiratory/Chest: chest non-tender, lungs clear, normal breath sounds, no accessory muscle use Cardiovascular: regular rate, rhythm, no JVD, no murmur Abdomen: non tender, soft, no organomegaly, + abnormal bowel sounds ( hypoactive BS) Extremities: normal inspection, no pedal edema, normal capillary refill Neurologic/Psych: alert, normal mood/affect, oriented x 3 Skin: normal color, no jaundice, warm/dry, no rash Laboratory Results Last 24 Hours Test 01/18/17 08:00 01/18/17 08:16 White Blood Count 5.22 K/uL Red Blood Count 4.82 M/uL Hemoglobin 13.2 g/dL Hematocrit 40.0 % Mean Corpuscular Volume 83.0 fL Mean Corpuscular Hemoglobin 27.4 pg Mean Corpuscular Hemoglobin Concent 33.0 g/dl Platelet Count 223 K/uL Mean Platelet Volume 9.6 fL Neutrophils (%) (Auto) 63.2 % Lymphocytes (%) (Auto) 30.1 % Monocytes (%) (Auto) 5.9 % Eosinophils (%) (Auto) 0.2 % Basophils (%) (Auto) 0.4 % Neutrophils # (Auto) 3.30 K/uL Lymphocytes # (Auto) 1.57 K/uL Monocytes # (Auto) 0.31 K/uL Eosinophils # (Auto) 0.01 K/uL Basophils # (Auto) 0.02 K/uL RDW Standard Deviation 55.8 fL RDW Coefficient of Variation 19.1 % Immature Granulocyte % (Auto) 0.2 % Immature Granulocyte # (Auto) 0.01 K/uL Prothrombin Time 11.3 SECONDS Prothromb Time International Ratio 1.1 Activated Partial Thromboplast Time 23.5 SECONDS Partial Thromboplastin Ratio 0.9 Sodium Level 139 mmol/L Potassium Level 3.7 mmol/L Chloride Level 103 mmol/L Carbon Dioxide Level 24 mmol/L Anion Gap 12.0 mmol/L Blood Urea Nitrogen 8 mg/dl Creatinine 0.97 mg/dl Est Creatinine Clear Calc Drug Dose 121.5 ml/min Estimated GFR () 92.1 Estimated GFR (Non- 79.5 BUN/Creatinine Ratio 7.8 Random Glucose 102 mg/dl Calcium Level 9.3 mg/dl Total Bilirubin 2.0 mg/dl Direct Bilirubin 0.6 mg/dl Aspartate Amino Transf (AST/SGOT) 350 U/L Alanine Aminotransferase (ALT/SGPT) 136 U/L Alkaline Phosphatase 114 U/L Total Protein 8.3 gm/dl Albumin 3.8 gm/dl Amylase Level 26 U/L Lipase 514 U/L Human Chorionic Gonadotropin, Qual NEG CT with minimal peripancreatic stranding Impression Patient is a 26 year old female with acute pancreatitis. This episode with moderately elevated bilirubin and transaminases as well as CT evidence of pancreatitis w/o cysts or other complications. Plan 1. LR at 200/hr. 2. RUQ ultrasound 3. Ice chips po. 4. Analgesics. 5. Repeat LFTs and lipase tomorrow. I have personally seen and examined the patient with RITA Delgado. Her note reflects my exam and findings. I agree with her impression and plan. Picture concerning for pancreatitis. Despite no significant elevation of lipase , the CT findings show features of pancreatic bed inflammation. Cont aggressive IV hydration. She will need to follow up with Dr. Lai to consider repeat EUS looking for stones. Brady Damon M.D.
[2017-01-18] MEDS: LACTATED RINGER'S 1000ML 1,000 ML IV SCH ×3 (14:32→22:58)
[2017-01-18] MEDS: HYDROmorphone INJ 0.5 MG/0.5 ML SYR IV PRN ×2 (14:37→22:59)
--- NOTE | 2017-01-18 14:54 | History and Physical ---
History & Physical Date & Time of Service: Jan 18, 2017 ~ 11:00 Chief Complaint: Abdominal Pain Primary Care Physician: Logan Tsai D.O. History of Present Illness 26 year old female who presents to the ER with abdominal pain. Patient has had several admissions over the past 6 months for abdominal pain and pancreatitis. She had gallstone pancreatitis in September and underwent a lap cholecystectomy. She had an additional admission for pancreatitis after ingestion of alcohol and high fatty foods. Then another admission for abdominal pain with a negative work up. Patient reports she has been doing a low fat diet since mid November and has been feeling well. She reports the abdominal pain came on suddenly yesterday. She reports the pain is located in the epigastric area and radiates over to the right side of her abdomen and down and around to her back. She has had 7 episodes of vomiting. She denies hematemesis or coffee ground emesis. No diarrhea. She denies chest pain and shortness of breath. She was seen in the ED last week for dizziness and near syncope. She was diagnosed with vertigo and a UTI. She was discharged on Meclizine and cephalexin. Dizziness has improved. In the ED, patient is found to have a transaminitis and CT scan findings of pancreatitis. Patient was treated with IV Dilaudid, Reglan, and IVF. Past Medical/Surgical History Medical Problems: (1) Abdominal pain Status: Chronic (2) Abnormal vaginal bleeding Status: Resolved (3) Depression Status: Chronic (4) Hepatic steatosis Status: Chronic (5) Morbid obesity Status: Chronic (6) Pancreatitis Status: Chronic (7) Uterine fibroid Status: Resolved (8) Uterine fibroid Status: Chronic Surgical Problems: (1) H/O esophagogastroduodenoscopy Permanent Comment: August 2016-esophagitis and gastritis; October 11, 2016- normal Status: Chronic (2) History of esophagogastroduodenoscopy (EGD) Permanent Comment: 09/01/16- - LA Grade B reflux esophagitis Status: Chronic (3) S/P cholecystectomy Status: Chronic Family History Diabetes mellitus FATHER FH: kidney failure FATHER FH: rheumatoid arthritis MOTHER FHx: pancreatic disease Uncle (Uncle from pancreatitis) Heart disease FATHER Social History Smoking Status: Never Smoker Alcohol Use: occasionally Multi-Drug Resistant Organisms History of MDRO: No Allergies Coded Allergies: Ondansetron (Verified Allergy, Unknown, lip tingling, 8/29/17) Morphine (Verified Adverse Reaction, Intermediate, ITCHINESS, 01/18/17) Home Medications Scheduled Cephalexin Monohydrate (Keflex), 500 MG PO TID Multivitamin (Multivitamin), 1 TAB PO DAILY Probiotic Product (Probiotic), 1 CAP PO DAILY Ranitidine (Zantac), 150 MG PO BID Scheduled PRN Lorazepam (Lorazepam), 1 TAB PO TID PRN for Anxiety Meclizine HCl (Meclizine HCl), 1 TAB PO Q6 PRN for Dizziness or Vertigo Review of Systems ROS per HPI, all other systems reviewed and negative Physical Exam Vital Signs Date Time Temp Pulse Resp B/P (MAP) Pulse Ox O2 Delivery O2 Flow Rate FiO2 01/18/17 13:27 36.5 100 20 123/93 01/18/17 12:05 103 18 158/105 100 01/18/17 11:40 103 18 158/105 100 Room Air 01/18/17 09:50 109 14 137/85 01/18/17 09:22 110 15 131/95 01/18/17 08:34 130 18 158/105 97 Room Air 01/18/17 08:29 160 01/18/17 07:43 36.5 136 18 165/114 96 Room Air General Appearance: no apparent distress Head: normocephalic Eyes: normal inspection ENT: hearing grossly normal Neck: supple, no JVD Respiratory/Chest: lungs clear, normal breath sounds, no respiratory distress Cardiovascular: regular rate, rhythm, no edema, normal peripheral pulses Abdomen/GI: normal bowel sounds, soft, + tenderness (mostly epigastric and RUQ , some RLQ ) Extremities/Musculoskelatal: normal inspection, no calf tenderness Neurologic/Psych: no motor/sensory deficits, alert, normal mood/affect, oriented x 3 Skin: normal color, warm/dry Diagnostics Laboratory Results Results Past 24 Hours Test 01/18/17 08:00 01/18/17 08:16 Range/Units White Blood Count 5.22 4.8-10.8 K/uL Red Blood Count 4.82 4.2-5.4 M/uL Hemoglobin 13.2 12.0-16.0 g/dL Hematocrit 40.0 37-47 % Mean Corpuscular Volume 83.0 80-100 fL Mean Corpuscular Hemoglobin 27.4 25-34 pg Mean Corpuscular Hemoglobin Concent 33.0 32-36 g/dl Platelet Count 223 130-400 K/uL Mean Platelet Volume 9.6 7.4-10.4 fL Neutrophils (%) (Auto) 63.2 % Lymphocytes (%) (Auto) 30.1 % Monocytes (%) (Auto) 5.9 % Eosinophils (%) (Auto) 0.2 % Basophils (%) (Auto) 0.4 % Neutrophils # (Auto) 3.30 1.4-6.5 K/uL Lymphocytes # (Auto) 1.57 1.2-3.4 K/uL Monocytes # (Auto) 0.31 0.11-0.59 K/uL Eosinophils # (Auto) 0.01 0-0.5 K/uL Basophils # (Auto) 0.02 0-0.2 K/uL RDW Standard Deviation 55.8 36.4-46.3 fL RDW Coefficient of Variation 19.1 11.5-14.5 % Immature Granulocyte % (Auto) 0.2 % Immature Granulocyte # (Auto) 0.01 0.00-0.02 K/uL Prothrombin Time 11.3 9.0-12.0 SECONDS Prothromb Time International Ratio 1.1 0.9-1.1 Activated Partial Thromboplast Time 23.5 21.0-31.0 SECONDS Partial Thromboplastin Ratio 0.9 Sodium Level 139 136-145 mmol/L Potassium Level 3.7 3.5-5.1 mmol/L Chloride Level 103 98-107 mmol/L Carbon Dioxide Level 24 21-32 mmol/L Anion Gap 12.0 3-11 mmol/L Blood Urea Nitrogen 8 7-18 mg/dl Creatinine 0.97 0.60-1.20 mg/dl Est Creatinine Clear Calc Drug Dose 121.5 ml/min Estimated GFR () 92.1 Estimated GFR (Non- 79.5 BUN/Creatinine Ratio 7.8 10-20 Random Glucose 102 70-99 mg/dl Calcium Level 9.3 8.5-10.1 mg/dl Total Bilirubin 2.0 0.2-1 mg/dl Direct Bilirubin 0.6 0-0.2 mg/dl Aspartate Amino Transf (AST/SGOT) 350 15-37 U/L Alanine Aminotransferase (ALT/SGPT) 136 12-78 U/L Alkaline Phosphatase 114 45-117 U/L Total Protein 8.3 6.4-8.2 gm/dl Albumin 3.8 3.4-5.0 gm/dl Amylase Level 26 25-115 U/L Lipase 514 73-393 U/L Human Chorionic Gonadotropin, Qual NEG NEG Diagnostic Radiology CT ABD/PELVIS IMPRESSION: 1. Mild inflammatory stranding surrounding the pancreatic head and proximal duodenum with minimal edema tracking along the hepatic flexure is nonspecific, however suggests developing acute pancreatitis with reactive changes of the adjacent duodenum. Correlate with lipase level. 2. Hepatomegaly with severe hepatosteatosis. 3. Prior cholecystectomy. 4. Mild dilation of the appendiceal tip, 10 mm without inflammatory stranding to suggest acute appendicitis. PORTAL VEIN DOPPLER IMPRESSION: 1. Patent major hepatic vessels with appropriately directed flow. 2. Fatty infiltration of the liver. RUQ US IMPRESSION: 1. Fatty infiltration of the liver. 2. No biliary ductal dilatation status post cholecystectomy. 3. Largely obscured pancreas. Impression Assessment and Plan PANCREATITIS, TRANSAMINITIS - admit to med/surg - patient presenting with epigastric and right sided abdominal pain since yesterday; has had several admissions in the past for abdominal pain / pancreatitis - s/p lap carley 10/12 for gallstone pancreatitis with subsequent admissions for pancreatitis felt to be due to fatty food and ETOH intake - on labs today patient has a transaminitis and lipase 514; ? choledocholithiasis from residual stone or sludge - no CBD on US - NPO, IVF, pain control - follow up LFTs and lipase in AM - GI consult - case discussed with RITA Delgado DVT PROPHYLAXIS - SQ Lovenox DIPSO - In my clinical judgment this beneficiary meets acute admission criteria, established by [facility], that includes being hospitalized through two midnights. I have seen and examined the patient and agree with the assessment and plan as stated. Tyler, DO Level of Care Med/Surg Resuscitation Status FULL RESUSCITATION VTE Prophylaxis VTE Risk Assessment Done? Y/N: Yes Risk Level: Moderate Given or contraindicated: Enoxaparin (Lovenox)SQ
[2017-01-18] MEDS: ENOXAPARIN 40 MG/0.4 ML SYR SQ SCH (15:06)
[2017-01-18 15:34] VITALS: BP 135/82; PULSE 106; TEMP 37; O2SAT 99
--- NOTE | 2017-01-18 16:39 | EMERGENCY ROOM VISIT NOTE ---
ED Visit Note First contact with patient: 07:48 Chief Complaint: Abdominal pain. History of Present Illness: Ms. Xie is a 26 year-old black female ambulates into the ED complaining of right lateral upper quadrant and right mid quadrant abdominal pain. Historically patient reports she's been having ongoing chronic abdominal pain for the last 10 months. She has a history of pancreatitis, fatty liver disease and is status post cholecystectomy. He has been admitted to the hospital 5 times in the and the last 4 months for abdominal pain. On her last visit she was to have an outpatient gastric empty study but that has not been performed. Patient reports a cute onset of bilateral upper quadrant and right mid quadrant abdominal pain that started approximately 20 hours ago. Since that time the pain has been constant. The pain is currently described as sharp. She rates her discomfort 8/10. The pain is radiating around the abdomen and into the thoracic back. The pain worsens with palpation and eating or drinking. She has not identified any alleviating factors related to the pain. She reports she has been using acetaminophen without relief of her discomfort. Associated with her pain she reports she's been having urinary burning, nausea without vomiting and has noted that her stools looked dark but she denies blood or black /tarry stools. Patient denies fevers, chills, sweats, skin eruptions, skin color changes, upper respiratory tract symptoms, shortness of breath, chest pain, nausea, vomiting, diarrhea, constipation, urinary frequency and urge, hematuria, vaginal bleeding, vaginal discharge. Review of Systems: As noted above in history of present illness. All body systems were reviewed and found to be negative as noted above. Past Medical History: As previously noted, obesity, uterine fibroids, depression. Current Medications: Medications Dose Route/Sig Max Daily Dose Days Date Category Lorazepam 0.5 Mg Tab 1 Tab PO TID PRN 30 01/18/17 Reported Meclizine HCl 25 Mg Tab 1 Tab PO Q6 PRN 01/12/17 Rx Keflex (Cephalexin Monohydrate) 500 Mg Cap 500 Mg PO TID 7 01/12/17 Rx Probiotic (Probiotic Product) 1 Cap Cap 1 Cap PO DAILY 01/12/17 Reported Multivitamin (Multivitamins) Tab 1 Tab PO DAILY 12/06/16 Reported Zantac (Ranitidine HCl) 150 Mg Tab 150 Mg PO BID 6/30/17 Reported Allergies to Medications: Morphine, Zofran. Social History: Patient is currently employed; she feels safe in her home environment; she denies tobacco use and admits to alcohol use. Physical Examination: Vital Signs: Date Time Temp Pulse Resp B/P (MAP) Pulse Ox O2 Delivery O2 Flow Rate FiO2 01/18/17 09:50 109 14 137/85 01/18/17 09:22 110 15 131/95 01/18/17 08:34 130 18 158/105 97 Room Air 01/18/17 08:29 160 01/18/17 07:43 36.5 136 18 165/114 96 Room Air GENERAL: 26-year-old female in mild distress due to pain, nontoxic-appearing, afebrile and hemodynamically stable. NEUROLOGICAL: Awake, alert and oriented to person, place and time. Answering questions appropriately and following commands. Normal gait. Good hand eye coordination. SKIN: Warm, dry and pink. No soft tissue eruptions or trauma noted. HEENT: Atraumatic and normocephalic. PERRLA. Sclera white and conjunctiva pink. Pharynx is nonerythematous or edematous. Speech normal. Trachea midline. No jugular venous distention. BACK: No tenderness over the bony spine. No CVA tenderness. THORAX: Lungs sounds are clear to auscultation and equal bilaterally with symmetrical chest wall. No wheezing, rales or rhonchi. HEART: Regular rate and rhythm. No gallops, rubs or murmurs are appreciated. ABDOMEN: Obese and soft with mild tenderness in the right and left upper quadrant and over the lateral aspect of the right upper quadrant. Positive bowel sounds in all quadrants. No guarding, rigidity or organomegaly. EXTREMITIES: Moves all extremities well on command and with purpose. All distal neurovascular statuses are intact and equal bilaterally. ED Course: Patient is assessed as noted above. Laboratory Testing: Test 01/18/17 08:00 01/18/17 08:16 Range/Units White Blood Count 5.22 4.8-10.8 K/uL Red Blood Count 4.82 4.2-5.4 M/uL Hemoglobin 13.2 12.0-16.0 g/dL Hematocrit 40.0 37-47 % Mean Corpuscular Volume 83.0 80-100 fL Mean Corpuscular Hemoglobin 27.4 25-34 pg Mean Corpuscular Hemoglobin Concent 33.0 32-36 g/dl Platelet Count 223 130-400 K/uL Mean Platelet Volume 9.6 7.4-10.4 fL Neutrophils (%) (Auto) 63.2 % Lymphocytes (%) (Auto) 30.1 % Monocytes (%) (Auto) 5.9 % Eosinophils (%) (Auto) 0.2 % Basophils (%) (Auto) 0.4 % Neutrophils # (Auto) 3.30 1.4-6.5 K/uL Lymphocytes # (Auto) 1.57 1.2-3.4 K/uL Monocytes # (Auto) 0.31 0.11-0.59 K/uL Eosinophils # (Auto) 0.01 0-0.5 K/uL Basophils # (Auto) 0.02 0-0.2 K/uL RDW Standard Deviation 55.8 36.4-46.3 fL RDW Coefficient of Variation 19.1 11.5-14.5 % Immature Granulocyte % (Auto) 0.2 % Immature Granulocyte # (Auto) 0.01 0.00-0.02 K/uL Prothrombin Time 11.3 9.0-12.0 SECONDS Prothromb Time International Ratio 1.1 0.9-1.1 Activated Partial Thromboplast Time 23.5 21.0-31.0 SECONDS Partial Thromboplastin Ratio 0.9 Sodium Level 139 136-145 mmol/L Potassium Level 3.7 3.5-5.1 mmol/L Chloride Level 103 98-107 mmol/L Carbon Dioxide Level 24 21-32 mmol/L Anion Gap 12.0 3-11 mmol/L Blood Urea Nitrogen 8 7-18 mg/dl Creatinine 0.97 0.60-1.20 mg/dl Est Creatinine Clear Calc Drug Dose 121.5 ml/min Estimated GFR () 92.1 Estimated GFR (Non- 79.5 BUN/Creatinine Ratio 7.8 10-20 Random Glucose 102 70-99 mg/dl Calcium Level 9.3 8.5-10.1 mg/dl Total Bilirubin 2.0 0.2-1 mg/dl Direct Bilirubin 0.6 0-0.2 mg/dl Aspartate Amino Transf (AST/SGOT) 350 15-37 U/L Alanine Aminotransferase (ALT/SGPT) 136 12-78 U/L Alkaline Phosphatase 114 45-117 U/L Total Protein 8.3 6.4-8.2 gm/dl Albumin 3.8 3.4-5.0 gm/dl Amylase Level 26 25-115 U/L Lipase 514 73-393 U/L Human Chorionic Gonadotropin, Qual NEG NEG IV Contrast Abdominal/Pelvic CT: Was reviewed by myself and read by the radiologist showing mild inflammatory stranding surrounding the pancreatic head and proximal duodenum with minimal edema tracking along the hepatic flexure suggestive of developing acute appendicitis, hepatomegaly with severe hepatosteatosis, mild dilatation of the appendix tip without sign of acute appendicitis and status post cholecystectomy. Patient was hydrated with normal saline and she was given 10 mg of Reglan IV for nausea/vomiting and a total of 2 mg of the Dilaudid IV for pain. Shortly after patient received her pain medications and antinausea medication she had a severe episode of vomiting and on reassessment she was tachycardia with a heart rate in the 140s. EKG was performed that showed sinus tachycardia with a rate of [address] changes or dysrhythmias were noted. Patient was reassessed multiple times during her stay in the emergency department. Patient's case was reviewed with Dr. Benjamin; we agreed on diagnostic approach , treatment, disposition and plan. Patient's case was reviewed with case management and Ms. Wolff, hospitalist; for medical observation/admission. Patient was educated about today's findings. Clinical Impression: Acute pancreatitis. Decision-Making: Initially my differential diagnosis I considered acute pancreatitis, retained cholelithiasis, hepatitis, bowel obstruction, and other causes. Disposition and Plan: Patient be brought in the hospital for observation/ admission for her pancreatitis; please see hospitalist notes and orders for final disposition and plan. Patient was encouraged to follow-up with personal physician for recheck in 1-2 days. Patient was encouraged return the ED for worsening symptoms, fevers, or any new/ concerning symptoms.
[2017-01-18] MEDS: ACETAMINOPHEN 325 MG TAB PO PRN (17:48)
[2017-01-18 18:16] LABS: URINE APPEARANCE CLEAR (CLEAR); URINE EPITHELIAL CELL AUTO >30 /lpf (0-5); URINE NITRITE POS (NEG); URINE SPECIFIC GRAVITY > 1.045 (1.000-1.030); UROBILINOGEN NEG (NEG)
[2017-01-18 18:19] LABS: MANUAL MICROSCOPIC REQUIRED? NO; REVIEW REQ? YES
[2017-01-18 18:22] LABS: URINE BILIRUBIN NEG (NEG); URINE COLOR DK YELLOW
[2017-01-18 18:24] LABS: URINE MUCUS PRESENT (NONE PRSENT)
[2017-01-18] MEDS: RANITIDINE HCL 150 MG TAB PO SCH (19:26)
[2017-01-19 00:23] VITALS: BP 135/88; PULSE 91; TEMP 37.6; O2SAT 99
[2017-01-19] MEDS: LACTATED RINGER'S 1000ML 1,000 ML IV SCH ×3 (04:00→15:45)
[2017-01-19 06:11] LABS: HEMATOCRIT 35.9 % (37-47); MEAN CELL VOLUME 84.9 fL (80-100); MEAN CORPUSCULAR HEMOGLOBIN 26.2 pg (25-34); MEAN CORPUSCULAR HGB CONC 30.9 g/dl (32-36); MEAN PLATELET VOLUME 10.1 fL (7.4-10.4); PLATELET COUNT 206 K/uL (130-400); RED BLOOD COUNT 4.23 M/uL (4.2-5.4); WHITE BLOOD COUNT 4.55 K/uL (4.8-10.8)
[2017-01-19 06:51] LABS: BUN/CREATININE RATIO 4.6 (10-20); CALCIUM 8.7 mg/dl (8.5-10.1); CREATININE 0.7 mg/dl (0.60-1.20); POTASSIUM 3.3 mmol/L (3.5-5.1)
[2017-01-19] MEDS: HYDROmorphone INJ 0.5 MG/0.5 ML SYR IV PRN ×3 (06:52→20:34)
[2017-01-19 06:54] LABS: ALB/GLOB RATIO 0.8 (0.9-2)
[2017-01-19 08:02] VITALS: BP 137/84; PULSE 94; TEMP 37.5; O2SAT 99
[2017-01-19] MEDS: RANITIDINE HCL 150 MG TAB PO SCH ×2 (08:45→20:32)
[2017-01-19] MEDS: LACTOBACILLUS ACIDOPHILUS (FLORANEX) TAB PO SCH (08:45)
[2017-01-19] MEDS: ACETAMINOPHEN 325 MG TAB PO PRN (08:48)
[2017-01-19] MEDS ORDERED: NURSING VERBAL MED ORDER ONE (09:00)
--- NOTE | 2017-01-19 12:13 | Gastroenterology Progress Note ---
Progress Note Date of Service: Jan 19, 2017 Subjective Pt evaluation today including: conversation w/ patient, physical exam, chart review, lab review, review of studies, review of inpatient medication list Ms. Xie is a 26 yr old female with recurrent upper abdomen pain, nausea/ vomiting. This episode with elevated LFTs (improving today), and elevated lipase (slightly increased to 897). She feels better today than yesterday. Most recent vomiting yesterday morning. Still with some abdominal pain. Review of Systems Constitutional: No fever Respiratory: No cough Cardiac: No chest pain Abdomen: + see HPI, + pain, + problem reported (passed one small BM today), No nausea, No vomiting, No diarrhea, No constipation Female : No dysuria Neuro: No memory loss Psych: No depression symptoms Heme: No abnormal bleeding/bruising Endo: No fatigue Medications Current Inpatient Medications Medications (Trade) Dose Ordered Sig/Marlin Route Start Time Stop Time Status Last Admin Dose Admin Ioversol (Optiray 320) 125 ml UD PRN IV 01/18/17 09:30 01/22/17 09:29 Enoxaparin Sodium (Lovenox Inj) 40 mg Q24H SQ 01/18/17 14:00 02/17/17 13:59 01/18/17 15:06 40 MG Acetaminophen (Tylenol Tab) 650 mg Q4H PRN PO 01/18/17 11:30 02/17/17 11:29 01/19/17 08:48 650 MG Promethazine HCl 12.5 mg/Sodium Chloride 50.5 ml @ 204 mls/hr Q6H PRN IV 01/18/17 11:30 02/17/17 11:29 01/18/17 14:32 204 MLS/HR Hydromorphone HCl (Dilaudid Inj) 0.5 mg Q6H PRN IV 01/18/17 11:30 02/01/17 11:29 01/19/17 06:52 0.5 MG Lactated Ringer's 1,000 ml @ 150 mls/hr Q6H40M IV 01/18/17 13:00 01/19/17 16:00 01/19/17 08:48 200 MLS/HR Ranitidine HCl (zANTac TAB) 150 mg BID PO 01/18/17 20:00 9/28/17 20:59 01/19/17 08:45 150 MG Lactobacillus Acidophilus (Floranex Tab) 4 tab DAILY PO 01/19/17 08:00 02/18/17 07:59 01/19/17 08:45 4 TAB Objective Vital Signs Date Time Temp Pulse Resp B/P (MAP) Pulse Ox O2 Delivery O2 Flow Rate FiO2 01/19/17 08:45 Room Air 01/19/17 08:02 37.5 94 18 137/84 (101) 99 Room Air 01/19/17 00:23 37.6 91 20 135/88 (104) 99 Room Air 01/19/17 00:01 Room Air 01/18/17 19:30 Room Air 01/18/17 15:34 37.0 106 22 135/82 (99) 99 Room Air 01/18/17 13:27 36.5 100 20 123/93 100 Room Air Physical Exam General Appearance: no apparent distress Neck: no JVD Respiratory/Chest: lungs clear, + decreased breath sounds (at bases) Cardiovascular: regular rate, rhythm, no JVD, no murmur Abdomen: soft, + tenderness (moderate tenderness in the entire upper and the RLQ areas) Extremities: normal inspection Neurologic/Psych: alert, normal mood/affect, oriented x 3 Skin: no jaundice Laboratory Results Last 24 Hours Test 01/18/17 17:42 01/18/17 22:17 01/19/17 05:40 Urine Color DK YELLOW Urine Appearance CLEAR Urine pH 6.0 Urine Specific [place] > 1.045 Urine Protein 2+ Urine Glucose (UA) NEG Urine Ketones 3+ Urine Occult Blood TRACE Urine Nitrite POS Urine Bilirubin NEG Urine Urobilinogen NEG Urine Leukocyte Esterase SMALL Urine WBC (Auto) >30 /hpf Urine RBC (Auto) 5-10 /hpf Urine Hyaline Casts (Auto) 5-10 /lpf Urine Epithelial Cells (Auto) >30 /lpf Urine Bacteria (Auto) NEG Urine Pathogenic Casts /lpf Urine Mucus PRESENT White Blood Count 4.55 K/uL Red Blood Count 4.23 M/uL Hemoglobin 11.1 g/dL Hematocrit 35.9 % Mean Corpuscular Volume 84.9 fL Mean Corpuscular Hemoglobin 26.2 pg Mean Corpuscular Hemoglobin Concent 30.9 g/dl RDW Standard Deviation 57.0 fL RDW Coefficient of Variation 18.9 % Platelet Count 206 K/uL Mean Platelet Volume 10.1 fL Sodium Level 137 mmol/L Potassium Level 3.3 mmol/L Chloride Level 103 mmol/L Carbon Dioxide Level 23 mmol/L Anion Gap 11.0 mmol/L Blood Urea Nitrogen 3 mg/dl Creatinine 0.70 mg/dl Est Creatinine Clear Calc Drug Dose 168.3 ml/min Estimated GFR () 136.7 Estimated GFR (Non- 117.9 BUN/Creatinine Ratio 4.6 Random Glucose 88 mg/dl Calcium Level 8.7 mg/dl Total Bilirubin 2.2 mg/dl Aspartate Amino Transf (AST/SGOT) 159 U/L Alanine Aminotransferase (ALT/SGPT) 96 U/L Alkaline Phosphatase 95 U/L Total Protein 7.3 gm/dl Albumin 3.3 gm/dl Globulin 4.0 gm/dl Albumin/Globulin Ratio 0.8 Lipase 897 U/L Assessment and Plan Ms Xie is a 26 yr old female with recurrent episodes of upper abdomen pain, this time with mild pancreatitis on CT and elevated LFTs. She is improving. Differentials considered are acute, recurrent pancreatitis, functional pain, cyclical vomiting. Regarding possible causes of pancreatitis, she denies any alcohol intake and she is S/P cholecystectomy and triglyceride levels are normal. Abdominal US and CT are w/o bile duct dilation thus obstruction is unlikely. Plan: 1. Clear liquid diet. If does well then advance to low fat regular consistency this afternoon. 2. Decrease LR to 150cc this afternoon at 4PM. 3. Needs OP GI Office visit with Dr. Lai to consider repeat EUS in 6-8 weeks. I have personally seen and examined the patient with RITA Delgado. Her note reflects my exam and findings. I agree with her impression and plan. Slowly advance diet as tolerates. Out patient follow up with Dr. Lai for consideration of EUS. Brady Damon M.D.
[2017-01-19] MEDS: ENOXAPARIN 40 MG/0.4 ML SYR SQ SCH (13:32)
[2017-01-19] MEDS ORDERED: POTASSIUM CHLORIDE 10 MEQ TABCR PO STA (14:37)
--- NOTE | 2017-01-19 16:07 | Progress Note ---
Internal Med Progress Note Date of Service: Jan 19, 2017. Provider Documentation: SUBJECTIVE: nausea and abdominal pain is better tolerating clears afebrile 'no sob OBJECTIVE: Vital Signs-as noted below Exam: General-alert and oriented. Not in distress. Obese ENT-normal hearing Neck-no neck masses Lungs-cta b/l no wheezing or crackles Heart-s1 and s2 heard regular rate and rhythm, no murmurs Abdomen-soft bowel sounds present mild epigastric tender no distension Extremities no edema no erythema Neuro-alert and oriented moves extremities Lab data as noted below. ASSESSMENT & PLAN: PANCREATITIS, TRANSAMINITIS hx of recurrent pancreatitis s/p lap carley 10/12 for gallstone pancreatitis with subsequent admissions for pancreatitis felt to be due to fatty food and ETOH intake no CBD on US currently on clears, fluids and antiemetics and pain meds Gi on board. DVT PROPHYLAXIS SQ Lovenox DISPOSITION to be determined Vital Signs: Date Time Temp Pulse Resp B/P (MAP) Pulse Ox O2 Delivery O2 Flow Rate FiO2 01/19/17 08:45 Room Air 01/19/17 08:02 37.5 94 18 137/84 (101) 99 Room Air 01/19/17 00:23 37.6 91 20 135/88 (104) 99 Room Air 01/19/17 00:01 Room Air 01/18/17 19:30 Room Air Lab Results: Results Past 24 Hours Test 01/18/17 17:42 01/18/17 22:17 01/19/17 05:40 Range/Units Urine Color DK YELLOW Urine Appearance CLEAR CLEAR Urine pH 6.0 4.5-7.5 Urine Specific [place] > 1.045 1.000-1.030 Urine Protein 2+ NEG Urine Glucose (UA) NEG NEG Urine Ketones 3+ NEG Urine Occult Blood TRACE NEG Urine Nitrite POS NEG Urine Bilirubin NEG NEG Urine Urobilinogen NEG NEG Urine Leukocyte Esterase SMALL NEG Urine WBC (Auto) >30 0-5 /hpf Urine RBC (Auto) 5-10 0-4 /hpf Urine Hyaline Casts (Auto) 5-10 0-5 /lpf Urine Epithelial Cells (Auto) >30 0-5 /lpf Urine Bacteria (Auto) NEG NEG Urine Pathogenic Casts 0 /lpf Urine Mucus PRESENT NONE PRSENT White Blood Count 4.55 4.8-10.8 K/uL Red Blood Count 4.23 4.2-5.4 M/uL Hemoglobin 11.1 12.0-16.0 g/dL Hematocrit 35.9 37-47 % Mean Corpuscular Volume 84.9 80-100 fL Mean Corpuscular Hemoglobin 26.2 25-34 pg Mean Corpuscular Hemoglobin Concent 30.9 32-36 g/dl RDW Standard Deviation 57.0 36.4-46.3 fL RDW Coefficient of Variation 18.9 11.5-14.5 % Platelet Count 206 130-400 K/uL Mean Platelet Volume 10.1 7.4-10.4 fL Sodium Level 137 136-145 mmol/L Potassium Level 3.3 3.5-5.1 mmol/L Chloride Level 103 98-107 mmol/L Carbon Dioxide Level 23 21-32 mmol/L Anion Gap 11.0 3-11 mmol/L Blood Urea Nitrogen 3 7-18 mg/dl Creatinine 0.70 0.60-1.20 mg/dl Est Creatinine Clear Calc Drug Dose 168.3 ml/min Estimated GFR () 136.7 Estimated GFR (Non- 117.9 BUN/Creatinine Ratio 4.6 10-20 Random Glucose 88 70-99 mg/dl Calcium Level 8.7 8.5-10.1 mg/dl Total Bilirubin 2.2 0.2-1 mg/dl Aspartate Amino Transf (AST/SGOT) 159 15-37 U/L Alanine Aminotransferase (ALT/SGPT) 96 12-78 U/L Alkaline Phosphatase 95 45-117 U/L Total Protein 7.3 6.4-8.2 gm/dl Albumin 3.3 3.4-5.0 gm/dl Globulin 4.0 2.5-4.0 gm/dl Albumin/Globulin Ratio 0.8 0.9-2 Lipase 897 73-393 U/L Microbiology Results 01/18/17 Urine Culture - Preliminary, Resulted MORE THAN THREE TYPES OF ORGANISMS TX...
[2017-01-19 23:12] VITALS: BP 149/98; PULSE 97; TEMP 37.4; O2SAT 100
[2017-01-20] MEDS: ACETAMINOPHEN 325 MG TAB PO PRN (01:12)
[2017-01-20] MEDS: HYDROmorphone INJ 0.5 MG/0.5 ML SYR IV PRN ×3 (02:15→22:35)
[2017-01-20 06:25] LABS: BASO % 0.4 %; BASO ABS # 0.02 K/uL (0-0.2); COMPLETE YES; EOS % 3.5 %; HEMATOCRIT 33.8 % (37-47); IG% 0.4 %; LYMPH % 42.4 %; LYMPH ABS # 2.05 K/uL (1.2-3.4); MEAN CELL VOLUME 83.9 fL (80-100); MEAN CORPUSCULAR HEMOGLOBIN 26.8 pg (25-34); MEAN PLATELET VOLUME 10.2 fL (7.4-10.4); MONO % 8.7 %; NEUT % 44.6 %; PLATELET COUNT 179 K/uL (130-400); RED BLOOD COUNT 4.03 M/uL (4.2-5.4); WHITE BLOOD COUNT 4.83 K/uL (4.8-10.8)
[2017-01-20 06:59] LABS: BUN/CREATININE RATIO 2.6 (10-20); CALCIUM 8.6 mg/dl (8.5-10.1); CREATININE 0.62 mg/dl (0.60-1.20); MAGNESIUM 1.5 mg/dl (1.8-2.4); POTASSIUM 3.2 mmol/L (3.5-5.1)
[2017-01-20] MEDS ORDERED: POTASSIUM CHLORIDE 20 MEQ TABCR PO STA (07:23)
[2017-01-20 07:48] VITALS: BP 136/91; PULSE 87; TEMP 37; O2SAT 98
[2017-01-20] MEDS: LACTOBACILLUS ACIDOPHILUS (FLORANEX) TAB PO SCH (08:51)
[2017-01-20] MEDS: RANITIDINE HCL 150 MG TAB PO SCH ×2 (08:51→19:58)
[2017-01-20] MEDS: MAGNESIUM SULFATE 1GM / D5W 1 GM in PREMIXED IN D5W 100 ML IV SCH ×2 (08:55→10:24)
[2017-01-20] MEDS: ENOXAPARIN 40 MG/0.4 ML SYR SQ SCH (14:08)
[2017-01-20 14:36] VITALS: BP 127/88; PULSE 89; TEMP 37.1; O2SAT 99
--- NOTE | 2017-01-20 16:53 | Progress Note ---
Internal Med Progress Note Date of Service: Jan 20, 2017. Provider Documentation: SUBJECTIVE: nausea and abdominal pain much better tolerating clears and requesting soft diet tolerating clears afebrile no other complaints OBJECTIVE: Vital Signs-as noted below Exam: General-alert and oriented. Not in distress. Obese ENT-normal hearing Neck-no neck masses Lungs-cta b/l no wheezing or crackles Heart-s1 and s2 heard regular rate and rhythm, no murmurs Abdomen-soft bowel sounds present mild epigastric tender no distension Extremities no edema no erythema Neuro-alert and oriented moves extremities Lab data as noted below. ASSESSMENT & PLAN: PANCREATITIS, TRANSAMINITIS hx of recurrent pancreatitis s/p lap carley 10/12 for gallstone pancreatitis with subsequent admissions for pancreatitis felt to be due to fatty food and ETOH intake no CBD on US On fluids and antiemetics and pain meds tolerating cleras advancing to soft diet Gi on board. DVT PROPHYLAXIS SQ Lovenox DISPOSITION possible d/c in 1-2 days ambulate in hallways Vital Signs: Date Time Temp Pulse Resp B/P (MAP) Pulse Ox O2 Delivery O2 Flow Rate FiO2 01/20/17 15:52 Room Air 01/20/17 14:36 37.1 89 20 127/88 (101) 99 Room Air 01/20/17 08:50 Room Air 01/20/17 07:48 37.0 87 18 136/91 (106) 98 Room Air 01/20/17 01:05 Room Air 01/19/17 23:12 37.4 97 18 149/98 (115) 100 Room Air Lab Results: Results Past 24 Hours Test 01/20/17 05:52 Range/Units White Blood Count 4.83 4.8-10.8 K/uL Red Blood Count 4.03 4.2-5.4 M/uL Hemoglobin 10.8 12.0-16.0 g/dL Hematocrit 33.8 37-47 % Mean Corpuscular Volume 83.9 80-100 fL Mean Corpuscular Hemoglobin 26.8 25-34 pg Mean Corpuscular Hemoglobin Concent 32.0 32-36 g/dl Platelet Count 179 130-400 K/uL Mean Platelet Volume 10.2 7.4-10.4 fL Neutrophils (%) (Auto) 44.6 % Lymphocytes (%) (Auto) 42.4 % Monocytes (%) (Auto) 8.7 % Eosinophils (%) (Auto) 3.5 % Basophils (%) (Auto) 0.4 % Neutrophils # (Auto) 2.15 1.4-6.5 K/uL Lymphocytes # (Auto) 2.05 1.2-3.4 K/uL Monocytes # (Auto) 0.42 0.11-0.59 K/uL Eosinophils # (Auto) 0.17 0-0.5 K/uL Basophils # (Auto) 0.02 0-0.2 K/uL RDW Standard Deviation 55.7 36.4-46.3 fL RDW Coefficient of Variation 18.6 11.5-14.5 % Immature Granulocyte % (Auto) 0.4 % Immature Granulocyte # (Auto) 0.02 0.00-0.02 K/uL Sodium Level 137 136-145 mmol/L Potassium Level 3.2 3.5-5.1 mmol/L Chloride Level 101 98-107 mmol/L Carbon Dioxide Level 28 21-32 mmol/L Anion Gap 8.0 3-11 mmol/L Blood Urea Nitrogen 2 7-18 mg/dl Creatinine 0.62 0.60-1.20 mg/dl Est Creatinine Clear Calc Drug Dose 190.0 ml/min Estimated GFR () 142.2 Estimated GFR (Non- 122.7 BUN/Creatinine Ratio 2.6 10-20 Random Glucose 88 70-99 mg/dl Calcium Level 8.6 8.5-10.1 mg/dl Magnesium Level 1.5 1.8-2.4 mg/dl Total Bilirubin 1.4 0.2-1 mg/dl Direct Bilirubin 0.5 0-0.2 mg/dl Aspartate Amino Transf (AST/SGOT) 115 15-37 U/L Alanine Aminotransferase (ALT/SGPT) 79 12-78 U/L Alkaline Phosphatase 83 45-117 U/L Total Protein 6.9 6.4-8.2 gm/dl Albumin 3.1 3.4-5.0 gm/dl
[2017-01-20 23:47] VITALS: BP 134/93; TEMP 37.7; O2SAT 99
[2017-01-21] MEDS: HYDROmorphone INJ 0.5 MG/0.5 ML SYR IV PRN (05:41)
[2017-01-21 05:50] LABS: BASO % 0.2 %; BASO ABS # 0.01 K/uL (0-0.2); COMPLETE YES; EOS % 2.8 %; HEMATOCRIT 36.2 % (37-47); IG% 0.2 %; LYMPH % 39.8 %; LYMPH ABS # 2.11 K/uL (1.2-3.4); MEAN CELL VOLUME 85.4 fL (80-100); MEAN CORPUSCULAR HEMOGLOBIN 26.9 pg (25-34); MEAN CORPUSCULAR HGB CONC 31.5 g/dl (32-36); MONO % 8.3 %; NEUT % 48.7 %; PLATELET COUNT 195 K/uL (130-400); RED BLOOD COUNT 4.24 M/uL (4.2-5.4)
[2017-01-21 06:17] LABS: BUN/CREATININE RATIO 5.8 (10-20); CALCIUM 8.9 mg/dl (8.5-10.1); CREATININE 0.76 mg/dl (0.60-1.20); POTASSIUM 3.6 mmol/L (3.5-5.1)
[2017-01-21 07:21] VITALS: BP 110/75; PULSE 91; TEMP 36.8; O2SAT 98
[2017-01-21] MEDS: RANITIDINE HCL 150 MG TAB PO SCH (08:49)
[2017-01-21] MEDS: LACTOBACILLUS ACIDOPHILUS (FLORANEX) TAB PO SCH (08:49)
[2017-01-21] MEDS: ENOXAPARIN 40 MG/0.4 ML SYR SQ SCH (13:59)
--- NOTE | 2017-01-21 15:10 | Discharge Instructions ---
Discharge Instructions Date of Service Jan 21, 2017. Admission Reason for Admission: Abdominal Pain Discharge Discharge Diagnosis / Problem: pancreatitis Discharge Goals Goal(s): Decrease discomfort, Improve function Activity Recommendations Activity Limitations: resume your previous activity . Instructions / Follow-Up Instructions / Follow-Up FOLLOWUP WITH FAMILY DOCTOR Logan Napoles ON Jan AT 1:05PM FOLLOWUP WITH GI IN 6-8 WEEKS FOR repeat EUS Current Hospital Diet Patient's current hospital diet: Low Fiber Diet, Low Fat Diet Discharge Diet Recommended Diet: Regular Diet, Low Fat Diet (SOFT DIET FOR FEW DAYS) Pending Studies Studies pending at discharge: no Laboratory Results Lipid Panel Test 12/08/16 10:57 Range/Units Triglycerides Level 141 0-150 mg/dl Cholesterol Level 170 0-200 mg/dl HDL Cholesterol 56 mg/dl Cholesterol/HDL Ratio 3.0 LDL Cholesterol, Calculated 86 mg/dl Work Instructions Return To Work: 2 days Additional Instructions: OK TO GO TO WORK ON 2016 Medical Emergencies . Who to Call and When: Medical Emergencies: If at any time you feel your situation is an emergency, please call 911 immediately. . Non-Emergent Contact Non-Emergency issues call your: Primary Care Provider . . "Provider Documentation" section prepared by Alek Olivera. . VTE Core Measure Inpt VTE Proph given/why not?: Enoxaparin (Lovenox)SQ
--- NOTE | 2017-01-21 15:30 | Progress Note ---
Internal Med Progress Note Date of Service: Jan 21, 2017. Provider Documentation: SUBJECTIVE: TOLERATING SOFT DIET ABDOMINAL PAIN ALMOST RESOLVED AFEBRILE NO NAUSEA OK TO GO HOME OBJECTIVE: Vital Signs-as noted below Exam: General-alert and oriented. Not in distress. Obese ENT-normal hearing Neck-no neck masses Lungs-cta b/l no wheezing or crackles Heart-s1 and s2 heard regular rate and rhythm, no murmurs Abdomen-soft bowel sounds present very mild epigastric tender no distension Extremities no edema no erythema Neuro-alert and oriented moves extremities Lab data as noted below. ASSESSMENT & PLAN: PANCREATITIS, TRANSAMINITIS hx of recurrent pancreatitis s/p lap carley 10/12 for gallstone pancreatitis with subsequent admissions for pancreatitis felt to be due to fatty food and ETOH intake no CBD on US On fluids and antiemetics and pain meds LFTs improved tolerating soft diet Gi on board. discharged to f/u [facility] in 6-8 weeks for repeat EUS Discharged home Vital Signs: Date Time Temp Pulse Resp B/P (MAP) Pulse Ox O2 Delivery O2 Flow Rate FiO2 01/21/17 08:50 Room Air 01/21/17 07:21 36.8 91 18 110/75 (87) 98 Room Air 01/21/17 00:45 Room Air 01/20/17 23:47 37.7 20 134/93 (107) 99 Room Air 01/20/17 20:07 Room Air 01/20/17 15:52 Room Air Lab Results: Results Past 24 Hours Test 01/21/17 05:21 01/21/17 13:38 Range/Units White Blood Count 5.30 4.8-10.8 K/uL Red Blood Count 4.24 4.2-5.4 M/uL Hemoglobin 11.4 12.0-16.0 g/dL Hematocrit 36.2 37-47 % Mean Corpuscular Volume 85.4 80-100 fL Mean Corpuscular Hemoglobin 26.9 25-34 pg Mean Corpuscular Hemoglobin Concent 31.5 32-36 g/dl Platelet Count 195 130-400 K/uL Mean Platelet Volume 10.0 7.4-10.4 fL Neutrophils (%) (Auto) 48.7 % Lymphocytes (%) (Auto) 39.8 % Monocytes (%) (Auto) 8.3 % Eosinophils (%) (Auto) 2.8 % Basophils (%) (Auto) 0.2 % Neutrophils # (Auto) 2.58 1.4-6.5 K/uL Lymphocytes # (Auto) 2.11 1.2-3.4 K/uL Monocytes # (Auto) 0.44 0.11-0.59 K/uL Eosinophils # (Auto) 0.15 0-0.5 K/uL Basophils # (Auto) 0.01 0-0.2 K/uL RDW Standard Deviation 58.2 36.4-46.3 fL RDW Coefficient of Variation 19.4 11.5-14.5 % Immature Granulocyte % (Auto) 0.2 % Immature Granulocyte # (Auto) 0.01 0.00-0.02 K/uL Sodium Level 139 136-145 mmol/L Potassium Level 3.6 3.5-5.1 mmol/L Chloride Level 103 98-107 mmol/L Carbon Dioxide Level 29 21-32 mmol/L Anion Gap 7.0 3-11 mmol/L Blood Urea Nitrogen 4 7-18 mg/dl Creatinine 0.76 0.60-1.20 mg/dl Est Creatinine Clear Calc Drug Dose 155.0 ml/min Estimated GFR () 123.7 Estimated GFR (Non- 106.8 BUN/Creatinine Ratio 5.8 10-20 Random Glucose 97 70-99 mg/dl Calcium Level 8.9 8.5-10.1 mg/dl Magnesium Level 2.0 1.8-2.4 mg/dl Total Bilirubin 0.7 0.2-1 mg/dl Direct Bilirubin 0.2 0-0.2 mg/dl Aspartate Amino Transf (AST/SGOT) 95 15-37 U/L Alanine Aminotransferase (ALT/SGPT) 92 12-78 U/L Alkaline Phosphatase 92 45-117 U/L Total Protein 8.1 6.4-8.2 gm/dl Albumin 3.6 3.4-5.0 gm/dl
[2017-01-21 15:58] VITALS: BP 110/75; PULSE 91; TEMP 36.8; O2SAT 98
--- NOTE | 2017-01-21 18:00 | Discharge Summary ---
Discharge Summary Date of Service Jan 21, 2017. Discharge Summary Admission Date: Jan 18, 2017 at 11:22 Discharge Date: Jan 21, 2017 Discharge Disposition: Home Principal Diagnosis: PANCREATITIS Secondary Diagnoses/Problems: (1) Abdominal pain Status: Chronic (2) Abnormal vaginal bleeding Status: Resolved (3) Depression Status: Chronic (4) Hepatic steatosis Status: Chronic (5) Morbid obesity Status: Chronic (6) Pancreatitis Status: Chronic (7) Uterine fibroid Status: Resolved (8) Uterine fibroid Status: Chronic Procedures: CT ABD/PELVIS: 1. Mild inflammatory stranding surrounding the pancreatic head and proximal duodenum with minimal edema tracking along the hepatic flexure is nonspecific, however suggests developing acute pancreatitis with reactive changes of the adjacent duodenum. Correlate with lipase level. 2. Hepatomegaly with severe hepatosteatosis. 3. Prior cholecystectomy. 4. Mild dilation of the appendiceal tip, 10 mm without inflammatory stranding to suggest acute appendicitis. LIVER US: 1. Patent major hepatic vessels with appropriately directed flow. 2. Fatty infiltration of the liver. ABDOMEN US: 1. Fatty infiltration of the liver. 2. No biliary ductal dilatation status post cholecystectomy. 3. Largely obscured pancreas. Consultations: GI Medication Reconciliation Continued Medications: Lorazepam (Lorazepam) 0.5 Mg Tab 1 TAB PO TID PRN for Anxiety for 30 Days, #90 TAB Meclizine HCl (Meclizine HCl) 25 Mg Tab 1 TAB PO Q6 PRN for Dizziness or Vertigo, #12 TAB Multivitamin (Multivitamin) Tab 1 TAB PO DAILY, TAB Probiotic Product (Probiotic) 1 Cap Cap 1 CAP PO DAILY Ranitidine (Zantac) 150 Mg Tab 150 MG PO BID Admission Information HPI (per Admitting provider): 26 year old female who presents to the ER with abdominal pain. Patient has had several admissions over the past 6 months for abdominal pain and pancreatitis. She had gallstone pancreatitis in September and underwent a lap cholecystectomy. She had an additional admission for pancreatitis after ingestion of alcohol and high fatty foods. Then another admission for abdominal pain with a negative work up. Patient reports she has been doing a low fat diet since mid November and has been feeling well. She reports the abdominal pain came on suddenly yesterday. She reports the pain is located in the epigastric area and radiates over to the right side of her abdomen and down and around to her back. She has had 7 episodes of vomiting. She denies hematemesis or coffee ground emesis. No diarrhea. She denies chest pain and shortness of breath. She was seen in the ED last week for dizziness and near syncope. She was diagnosed with vertigo and a UTI. She was discharged on Meclizine and cephalexin. Dizziness has improved. In the ED, patient is found to have a transaminitis and CT scan findings of pancreatitis. Patient was treated with IV Dilaudid, Reglan, and IVF. Physical Exam (per Admitting): General Appearance: no apparent distress Head: normocephalic Eyes: normal inspection ENT: hearing grossly normal Neck: supple, no JVD Respiratory/Chest: lungs clear, normal breath sounds, no respiratory distress Cardiovascular: regular rate, rhythm, no edema, normal peripheral pulses Abdomen/GI: normal bowel sounds, soft, + tenderness (mostly epigastric and RUQ, some RLQ ) Extremities/Musculoskelatal: normal inspection, no calf tenderness Neurologic/Psych: no motor/sensory deficits, alert, normal mood/affect, oriented x 3 Skin: normal color, warm/dry Hospital Course PANCREATITIS, TRANSAMINITIS hx of recurrent pancreatitis s/p lap carley 10/12 for gallstone pancreatitis with subsequent admissions for pancreatitis felt to be due to fatty food and ETOH intake no CBD on US On fluids and antiemetics and pain meds LFTs improved tolerating soft diet Gi on board. discharged to f/u [facility] in 6-8 weeks for repeat EUS Discharged home Total time spent on discharge = 35MINUTES This includes examination of the patient, discharge planning, medication reconciliation, and communication with other providers. Discharge Instructions Discharge Instructions Date of Service Jan 21, 2017. Admission Reason for Admission: Abdominal Pain Discharge Discharge Diagnosis / Problem: pancreatitis Discharge Goals Goal(s): Decrease discomfort, Improve function Activity Recommendations Activity Limitations: resume your previous activity . Instructions / Follow-Up Instructions / Follow-Up FOLLOWUP WITH FAMILY DOCTOR Logan Napoles ON Jan AT 1:05PM FOLLOWUP WITH GI IN 6-8 WEEKS FOR repeat EUS Current Hospital Diet Patient's current hospital diet: Low Fiber Diet, Low Fat Diet Discharge Diet Recommended Diet: Regular Diet, Low Fat Diet (SOFT DIET FOR FEW DAYS) Pending Studies Studies pending at discharge: no Laboratory Results Lipid Panel Test 12/08/16 10:57 Range/Units Triglycerides Level 141 0-150 mg/dl Cholesterol Level 170 0-200 mg/dl HDL Cholesterol 56 mg/dl Cholesterol/HDL Ratio 3.0 LDL Cholesterol, Calculated 86 mg/dl Work Instructions Return To Work: 2 days Additional Instructions: OK TO GO TO WORK ON 2016 Medical Emergencies . Who to Call and When: Medical Emergencies: If at any time you feel your situation is an emergency, please call 911 immediately. . Non-Emergent Contact Non-Emergency issues call your: Primary Care Provider . . "Provider Documentation" section prepared by Alek Olivera. . VTE Core Measure Inpt VTE Proph given/why not?: Enoxaparin (Lovenox)SQ
== END 2017-01-21 17:15 | disposition home or self-care (01) | DRG 439 ==
LOC: C.EDB 07:43 → C.4E 11:22 → ENRESERV 11:38
PROVIDERS: ADMIT Hospitalist; ATTEND Internal Medicine
DX: K85.90 Acute pancreatitis without necrosis or infection, unspecified (principal); Z68.42 Body mass index [BMI] 45.0-49.9, adult; E66.01 Morbid (severe) obesity due to excess calories; F32.9 Major depressive disorder, single episode, unspecified; K76.0 Fatty (change of) liver, not elsewhere classified

== ENCOUNTER 2017-03-01 08:03 | Emergency (ER) | payer BC ==
[~2017-03-01] VITALS: Ht 167.6 cm; Wt 133.7 kg
[~2017-03-01 08:03] MED LIST changes: -CEPH500C PO; +LORA0.5T12 PO
[2017-03-01 08:10] VITALS: TEMP 37; Ht 167.6 cm; Wt 133.7 kg
[2017-03-01] MEDS ORDERED: METOCLOPRAMIDE HCL INJ 5 MG/ML 2 ML VIAL IM STA (08:38)
[2017-03-01] MEDS ORDERED: SODIUM CHLORIDE 0.9% 1000ML 1,000 ML IV STA (08:38)
[2017-03-01 09:00] LABS: BASO % 0.5 %; BASO ABS # 0.03 K/uL (0-0.2); COMPLETE YES; EOS % 0.3 %; HEMATOCRIT 41.7 % (37-47); IG% 0.2 %; LYMPH % 34.7 %; LYMPH ABS # 2.29 K/uL (1.2-3.4); MEAN CELL VOLUME 86.3 fL (80-100); MEAN CORPUSCULAR HEMOGLOBIN 28.2 pg (25-34); MEAN CORPUSCULAR HGB CONC 32.6 g/dl (32-36); MEAN PLATELET VOLUME 9.6 fL (7.4-10.4); MONO % 15.2 %; NEUT % 49.1 %; PLATELET COUNT 358 K/uL (130-400); RED BLOOD COUNT 4.83 M/uL (4.2-5.4)
[2017-03-01 09:06] LABS: URINE APPEARANCE CLOUDY (CLEAR); URINE BILIRUBIN NEG (NEG); URINE COLOR DK YELLOW; URINE EPITHELIAL CELL AUTO >30 /lpf (0-5); URINE NITRITE NEG (NEG); URINE PH 5.5 (4.5-7.5); URINE SPECIFIC GRAVITY 1.028 (1.000-1.030); UROBILINOGEN NEG (NEG); ZZUR CULT IF INDIC CLEAN CATCH YES
[2017-03-01 09:16] LABS: MANUAL MICROSCOPIC REQUIRED? NO; REVIEW REQ? YES
[2017-03-01 09:23] LABS: ALT/SGPT 124 U/L (12-78); BLOOD UREA NITROGEN 4 mg/dl (7-18); BUN/CREATININE RATIO 3.6 (10-20); CALCIUM 10.3 mg/dl (8.5-10.1); CARBON DIOXIDE 14 mmol/L (21-32); CHLORIDE 103 mmol/L (98-107); GLUCOSE 97 mg/dl (70-99); POTASSIUM 3.9 mmol/L (3.5-5.1); SODIUM 134 mmol/L (136-145)
[2017-03-01] MEDS ORDERED: OPTIRAY 320 IV PRN (09:30)
[2017-03-01 09:34] LABS: ALB/GLOB RATIO 0.8 (0.9-2); ALKALINE PHOSPHATASE 130 U/L (45-117); AST/SGOT 200 U/L (15-37)
--- NOTE | 2017-03-01 09:56 | DIAGNOSTIC IMAGING REPORT ---
ULTRASOUND RIGHT UPPER QUADRANT ABDOMEN CLINICAL HISTORY: Epigastric abdominal pain. COMPARISON STUDY: Abdominal CT dated 01/18/2017. TECHNIQUE: Real-time, grayscale, and color flow sonography of the right upper quadrant of the abdomen was performed. Images are reviewed in the transverse and longitudinal planes. The examination is degraded by large body habitus. FINDINGS: Liver: The liver is enlarged and demonstrates heterogeneously increased echotexture consistent with severe hepatic steatosis. Note that this degrades acoustic penetration of the liver. There is no intrahepatic biliary ductal dilatation. The main portal vein is patent. Gallbladder: The gallbladder is surgically absent. The common bile duct measures up to 0.5 cm in diameter. Pancreas: Visualized portions of the pancreatic head are normal in appearance. The majority of the pancreas was not well visualized. Right kidney: Survey images of the right kidney demonstrate normal size and echotexture. There is no hydronephrosis. Ascites: None. IMPRESSION: 1. No acute sonographic abnormality is identified in the right upper quadrant noting status post cholecystectomy. 2. Hepatomegaly and severe hepatic steatosis. Electronically signed by: Mathew Calero M.D. 03/01/2017 9:55 AM Dictated Date/Time: 03/01/2017 9:53 AM
--- NOTE | 2017-03-01 10:10 | DIAGNOSTIC IMAGING REPORT ---
TWO VIEW CHEST CLINICAL HISTORY: Palpitations. Dyspnea. FINDINGS: PA and lateral chest radiographs are compared to chest x-ray and chest CT dated 11/19/2016. The examination is degraded by large body habitus. The cardiomediastinal silhouette is unremarkable. The lungs and pleural spaces are clear. There is no pneumothorax. The bony thorax appears intact. IMPRESSION: No active disease in the chest. Electronically signed by: Mathew Calero M.D. 03/01/2017 10:08 AM Dictated Date/Time: 03/01/2017 10:08 AM
--- NOTE | 2017-03-01 10:37 | DIAGNOSTIC IMAGING REPORT ---
(CHEST FOR PE) ANGIO WITH CLINICAL HISTORY: 26 years-old Female presenting with chest and back pain, positive d-dimer, dyspnea, tachycardia, clinical concern for pulmonary embolus. TECHNIQUE: Multidetector CT angiography of the chest was performed after administration of intravenous contrast. 3-D volumetric and/or maximum intensity projection (MIP) images were subsequently reconstructed for review. IV contrast: 94 mL of Optiray 320. A dose lowering technique was used consistent with the principles of ALARA (as low as reasonably achievable). COMPARISON: 11/19/2016. CT DOSE (mGy.cm): The estimated cumulative dose is 548.12 mGy.cm. 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 Pulmonary vasculature: The study is adequate for assessment of the pulmonary vascular tree. No filling defect within the pulmonary arteries to suggest embolus. Main pulmonary artery is not enlarged. No flattening of the interventricular septum. No intracardiac intracardiac filling defect. No reflux of contrast into the hepatic veins. Remaining chest: On soft tissue windows, normal thyroid and thoracic inlet. No axillary, supraclavicular, hilar, or mediastinal lymphadenopathy. Normal aorta. Normal heart size. No pericardial or pleural effusion. Hepatic steatosis. Cholecystectomy clips noted. Splenule noted. On lung windows, no focal infiltrate or nodule. Airways patent. On bone windows, normal osseous structures. IMPRESSION: 1. No evidence of pulmonary embolus. No acute intrathoracic pathology. 2. Hepatic steatosis. Electronically signed by: Holden Vizcaino M.D. 03/01/2017 10:36 AM Dictated Date/Time: 03/01/2017 10:31 AM
[2017-03-01] MEDS ORDERED: HYDROmorphone INJ 0.5 MG/0.5 ML SYR IV STA (10:51)
[2017-03-01] MEDS ORDERED: DICY10CA55 PO (11:17)
[2017-03-01] MEDS ORDERED: PROM25TA9 PO (11:38)
--- NOTE | 2017-03-01 11:42 | EMERGENCY ROOM VISIT NOTE ---
History First contact with patient: 08:18 Chief Complaint: ABDOMINAL PAIN Stated Complaint: ABD./BACK PAIN History of Present Illness The patient is a 26 year old female who presents to the Emergency Room with complaints of abdominal pain. The patient states the pain worsened yesterday. She does complain of nausea and vomiting. The patient states the pain radiates into the right side of her back. She does report a history of liver and pancreas issues, does have a history of pancreatitis. She is under the care of gastroenterology and states she is scheduled for a procedure to be completed within the next month. The patient states she was told by her rotoprinter to return to the emergency department any time she has a flare up of her symptoms. She denies any chest pain, but does complain of difficulty breathing associated with heart palpitations. She denies cough. She did have a cholecystectomy performed in September. The patient also complains of pruritus and burning in her labia. She states she is having dysuria, not associated with hematuria or other urinary symptoms. Last menstrual period was in November, as she was on control pills. She was just recently seen by her acid filler and had a negative test performed at that time. She denies any obvious vaginal discharge or bleeding, denies pain with intercourse. Review of Systems A complete 10 point review of systems was reviewed with the patient with pertinent positives and negatives as per history of present illness. All else were negative. Past Medical/Surgical History Medical Problems: (1) Abdominal pain (2) Abnormal vaginal bleeding (3) Depression (4) Hepatic steatosis (5) Morbid obesity (6) Pancreatitis (7) Uterine fibroid (8) Uterine fibroid Surgical Problems: (1) H/O esophagogastroduodenoscopy (2) History of esophagogastroduodenoscopy (EGD) (3) S/P cholecystectomy Family History Diabetes mellitus FATHER FH: kidney failure FATHER FH: rheumatoid arthritis MOTHER FHx: pancreatic disease Uncle (Uncle from pancreatitis) Heart disease FATHER Social History Smoking Status: Never Smoker Alcohol Use: occasionally Housing Status: lives alone Current/Historical Medications Scheduled Dicyclomine Hcl (Bentyl), 10 MG PO . Multivitamin (Multivitamin), 1 TAB PO DAILY Probiotic Product (Probiotic), 1 CAP PO DAILY Scheduled PRN Lorazepam (Lorazepam), 1 TAB PO TID PRN for Anxiety Meclizine HCl (Meclizine HCl), 1 TAB PO Q6 PRN for Dizziness or Vertigo Promethazine Hcl (Phenergan), 25 MG PO Q4H PRN for Nausea Allergies Morphine, Zofran Physical Exam Vital Signs Date Time Temp Pulse Resp B/P (MAP) Pulse Ox O2 Delivery O2 Flow Rate FiO2 03/01/17 12:28 90 16 154/84 98 03/01/17 11:10 90 16 151/89 98 Room Air 03/01/17 08:10 37.0 120 16 108/86 98 Room Air Physical Exam VITALS: Vitals are noted on the nurse's note and reviewed by myself. Vital signs stable. GENERAL: This is a 26 year old obese black female, in no acute distress, nondiaphoretic, well-developed well-nourished. SKIN: The skin was without rashes, erythema, edema, or bruising. There is no tenting of the skin. Capillary reflex less than 2 seconds. HEAD: Normocephalic atraumatic. EARS: External auditory canals clear, tympanic membranes pearly reynolds without erythema or effusion bilaterally. EYES: Pupils equal round and reactive to light and accommodation. Conjunctivae without injection, sclerae without icterus. Extraocular movements intact. NOSE: Patent, turbinates without inflammation or discharge. No sinus tenderness. MOUTH: Mucous membranes moist. Tonsils are not enlarged. Pharynx without erythema or exudate. Uvula midline. Airway patent. Tongue does not deviate. NECK: Supple without nuchal rigidity. No lymphadenopathy. No thyromegaly. Cervical spine is nontender. No JVD. HEART: Regular rate and rhythm without murmurs gallops or rubs. LUNGS: Clear to auscultation bilaterally without wheezes, rales or rhonchi. No dullness to percussion. No retractions or accessory muscle use. ABDOMEN: Positive bowel sounds x 4. Normal tympanic percussion. Soft, nontender, without masses or organomegaly. Jefferson sign negative. No guarding or rebound tenderness. BRAN MIXER: Labia majora did show erythematous patches with no obvious vaginal discharge or bleeding. MUSCULOSKELETAL: No muscle atrophy, erythema, or edema noted. Full range of motion without joint tenderness in all extremities. No tenderness to palpation. Normal gait. Strength 5/5 throughout. NEURO: Patient was alert and oriented to person place and time. Normal sensation to light and sharp touch. Deep tendon reflexes 2+ throughout. No focal neurological deficits. Medical Decision & Procedures ER Provider Diagnostic Interpretation: LABS: CBC without significant leukocytosis, anemia, thrombocytopenia. CMP showed normal blood glucose level of 97. Renal function was normal with creatinine of 1.2. AST and ALT were both elevated, however this is normal for the patient. Alkaline phosphatase was elevated at 130. Bilirubin slightly elevated at 2.4. Lipase was normal at 283. CK-MB and troponin were normal. TSH was 1.3. Urine test was negative. Urinalysis showed 4+ ketones, epithelial cells, and bacteria. US Abdomen Limited: ULTRASOUND RIGHT UPPER QUADRANT ABDOMEN CLINICAL HISTORY: Epigastric abdominal pain. COMPARISON STUDY: Abdominal CT dated 01/18/2017. TECHNIQUE: Real-time, grayscale, and color flow sonography of the right upper quadrant of the abdomen was performed. Images are reviewed in the transverse and longitudinal planes. The examination is degraded by large body habitus. FINDINGS: Liver: The liver is enlarged and demonstrates heterogeneously increased echotexture consistent with severe hepatic steatosis. Note that this degrades acoustic penetration of the liver. There is no intrahepatic biliary ductal dilatation. The main portal vein is patent. Gallbladder: The gallbladder is surgically absent. The common bile duct measures up to 0.5 cm in diameter. Pancreas: Visualized portions of the pancreatic head are normal in appearance. The majority of the pancreas was not well visualized. Right kidney: Survey images of the right kidney demonstrate normal size and echotexture. There is no hydronephrosis. Ascites: None. IMPRESSION: 1. No acute sonographic abnormality is identified in the right upper quadrant noting status post cholecystectomy. 2. Hepatomegaly and severe hepatic steatosis. Electronically signed by: Mathew Calero M.D. 03/01/2017 9:55 AM Dictated Date/Time: 03/01/2017 9:53 AM CTA Chest with IV Contrast: (CHEST FOR PE) ANGIO WITH CLINICAL HISTORY: 26 years-old Female presenting with chest and back pain, positive d-dimer, dyspnea, tachycardia, clinical concern for pulmonary embolus. TECHNIQUE: Multidetector CT angiography of the chest was performed after administration of intravenous contrast. 3-D volumetric and/or maximum intensity projection (MIP) images were subsequently reconstructed for review. IV contrast: 94 mL of Optiray 320. A dose lowering technique was used consistent with the principles of ALARA (as low as reasonably achievable). COMPARISON: 11/19/2016. CT DOSE (mGy.cm): The estimated cumulative dose is 548.12 mGy.cm. 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 Pulmonary vasculature: The study is adequate for assessment of the pulmonary vascular tree. No filling defect within the pulmonary arteries to suggest embolus. Main pulmonary artery is not enlarged. No flattening of the interventricular septum. No intracardiac intracardiac filling defect. No reflux of contrast into the hepatic veins. Remaining chest: On soft tissue windows, normal thyroid and thoracic inlet. No axillary, supraclavicular, hilar, or mediastinal lymphadenopathy. Normal aorta. Normal heart size. No pericardial or pleural effusion. Hepatic steatosis. Cholecystectomy clips noted. Splenule noted. On lung windows, no focal infiltrate or nodule. Airways patent. On bone windows, normal osseous structures. IMPRESSION: 1. No evidence of pulmonary embolus. No acute intrathoracic pathology. 2. Hepatic steatosis. Electronically signed by: Holden Vizcaino M.D. 03/01/2017 10:36 AM Dictated Date/Time: 03/01/2017 10:31 AM Laboratory Results 03/01/17 08:45 Red Blood Count 4.83, Mean Corpuscular Volume 86.3, Mean Corpuscular Hemoglobin 28.2, Mean Corpuscular Hemoglobin Concent 32.6, Mean Platelet Volume 9.6, Neutrophils (%) (Auto) 49.1, Lymphocytes (%) (Auto) 34.7, Monocytes (%) (Auto) 15.2, Eosinophils (%) (Auto) 0.3, Basophils (%) (Auto) 0.5, Neutrophils # (Auto ) 3.25, Lymphocytes # (Auto) 2.29, Monocytes # (Auto) 1.00, Eosinophils # (Auto ) 0.02, Basophils # (Auto) 0.03 03/01/17 08:45 Test 03/01/17 08:20 03/01/17 08:38 03/01/17 08:45 03/01/17 10:40 Urine Color DK YELLOW Urine Appearance CLOUDY (CLEAR) Urine pH 5.5 (4.5-7.5) Urine Specific [place] 1.028 (1.000-1.030) Urine Protein 1+ (NEG) Urine Glucose (UA) NEG (NEG) Urine Ketones 4+ (NEG) Urine Occult Blood NEG (NEG) Urine Nitrite NEG (NEG) Urine Bilirubin NEG (NEG) Urine Urobilinogen NEG (NEG) Urine Leukocyte Esterase NEG (NEG) Urine WBC (Auto) 1-5 /hpf (0-5) Urine RBC (Auto) 0-4 /hpf (0-4) Urine Hyaline Casts (Auto) 1-5 /lpf (0-5) Urine Epithelial Cells (Auto) >30 /lpf (0-5) Urine Bacteria (Auto) 1+ (NEG) Urine Pathogenic Casts /lpf (0) Urine Test NEG (NEG) Creatine Kinase MB Ratio (0-3.0) White Blood Count 6.60 K/uL (4.8-10.8) Red Blood Count 4.83 M/uL (4.2-5.4) Hemoglobin 13.6 g/dL (12.0-16.0) Hematocrit 41.7 % (37-47) Mean Corpuscular Volume 86.3 fL (80-100) Mean Corpuscular Hemoglobin 28.2 pg (25-34) Mean Corpuscular Hemoglobin Concent 32.6 g/dl (32-36) Platelet Count 358 K/uL (130-400) Mean Platelet Volume 9.6 fL (7.4-10.4) Neutrophils (%) (Auto) 49.1 % Lymphocytes (%) (Auto) 34.7 % Monocytes (%) (Auto) 15.2 % Eosinophils (%) (Auto) 0.3 % Basophils (%) (Auto) 0.5 % Neutrophils # (Auto) 3.25 K/uL (1.4-6.5) Lymphocytes # (Auto) 2.29 K/uL (1.2-3.4) Monocytes # (Auto) 1.00 K/uL (0.11-0.59) Eosinophils # (Auto) 0.02 K/uL (0-0.5) Basophils # (Auto) 0.03 K/uL (0-0.2) RDW Standard Deviation 62.2 fL (36.4-46.3) RDW Coefficient of Variation 19.8 % (11.5-14.5) Immature Granulocyte % (Auto) 0.2 % Immature Granulocyte # (Auto) 0.01 K/uL (0.00-0.02) D-Dimer 590 ug/L FEU (0-500) Anion Gap 17.0 mmol/L (3-11) Est Creatinine Clear Calc Drug Dose 98.1 ml/min Estimated GFR () 71.2 Estimated GFR (Non- 61.5 BUN/Creatinine Ratio 3.6 (10-20) Calcium Level 10.3 mg/dl (8.5-10.1) Total Bilirubin 2.4 mg/dl (0.2-1) Aspartate Amino Transf (AST/SGOT) 200 U/L (15-37) Alanine Aminotransferase (ALT/SGPT) 124 U/L (12-78) Alkaline Phosphatase 130 U/L (45-117) Creatine Kinase MB 1.6 ng/ml (0.5-3.6) Troponin I < 0.015 ng/ml (0-0.045) Total Protein 9.2 gm/dl (6.4-8.2) Albumin 4.2 gm/dl (3.4-5.0) Globulin 5.0 gm/dl (2.5-4.0) Albumin/Globulin Ratio 0.8 (0.9-2) Lipase 283 U/L (73-393) Thyroid Stimulating Hormone (TSH) 1.300 uIu/ml (0.300-4.500) Lactic Acid Level 0.9 mmol/L (0.4-2.0) Medications Administered Medications (Trade) Dose Ordered Sig/Marlin Route Start Time Stop Time Status Last Admin Dose Admin Sodium Chloride 1,000 ml @ 999 mls/hr Q1H1M STAT IV 03/01/17 08:38 03/01/17 09:38 DC 03/01/17 08:52 999 MLS/HR Metoclopramide HCl (Reglan Inj) 10 mg NOW STAT IM 03/01/17 08:38 03/01/17 08:45 DC 03/01/17 10:34 10 MG Hydromorphone HCl (Dilaudid Inj) 0.5 mg NOW STAT IV 03/01/17 10:51 03/01/17 10:52 DC 03/01/17 11:13 0.5 MG Medical Decision Patient was seen and evaluated as above. She reported today with symptoms similar to acute pancreatitis which she has had in the past. Patient's lab work does not coincide with this, as her lipase was negative. Her other labs are stable, and the patient is under the care of gastroenterology. I did speak with [place] Rowland, of gastroenterology, who states they do not feel that the patient needs inpatient evaluation and they will continue to monitor her outpatient and treat her symptoms. The patient was initially given Reglan for her nausea. She states she is having increased pain and nausea upon return from CT, so she was given 0.5 mg of Dilaudid. The patient was laughing with her male friend prior to asking for pain medication, but states her symptoms did improve significantly after medication. She was also given 1 L normal saline solution bolus. I discussed all findings patient at bedside. They do feel that she is suffering a vulvovaginal candidiasis. The patient was instructed on OTC medication to use for her yeast infection. Differential diagnosis includes: Acute pancreatitis, liver failure, GERD, chronic pancreatitis, acute gastroenteritis, vulvovaginal candidiasis, , pulmonary embolism, acute CA, fatty liver disease, malignancy, and others Medication Reconcilliation Current Medication List: was personally reviewed by me Blood Pressure Screening Patient's blood pressure: Normal blood pressure Impression Primary Impression: Abdominal pain Departure Information Dispostion Home / Self-Care Condition GOOD Prescriptions Promethazine Hcl (Phenergan) 25 Mg Tab 25 MG PO Q4H Y for Nausea, #15 TAB Prov: Mony Mckay PA-C 03/01/17 Referrals Logan Tsai, D.OSybil (PCP) Basil Young, DO Patient Instructions ED Abdominal Pain Unkn Cause, My [facility] Additional Instructions You have been treated in the Emergency Department your Abdominal Pain. Laboratory results and imaging studies have ruled out any emergent causes for your abdominal pain which would warrant admission or surgery. You were given Dilaudid in the ED for pain control. This is a narcotic medication. You cannot drive or consume alcohol while on this medicine. You have been prescribed Phenergan to be used for any nausea or vomiting. Take as prescribed. Use OTC Monistat cream to help with a yeast infection. For pain control, you can use the following afco-rit-fafcrsb medicines (if >12 yo): Ibuprofen(Motrin, Advil) may be used for fever or pain. Use 600mg every six hours as needed. Take with food. Avoid using more than 2400mg in a 24 hour period. Do not use 2400mg per day for more than three consecutive days without physician direction. Prolonged inappropriate use can lead to stomach upset or ulcers. (AND/OR) Acetaminophen(Tylenol) may be used for fever or pain. Use 1000mg every six hours as needed. Avoid using more than 3000mg in a 24 hour period. Drink plenty of water and stay well hydrated. You may want to consider a clear liquid diet for 24-48 hours, as this can help to settle down abdominal pain. As with any trip to the Emergency Department, you should follow-up with your Primary Care Provider from today's visit. Please follow up within the next 1 month with gastroenterology for further evaluation and management of your chronic abdominal pain. Return to the emergency department if your symptoms persist despite treatment plan outlined above or if the following symptoms occur: increased fevers, chills , worsening nausea/vomiting, blood in your stool or urine. Work Instructions Return To Work: 2 days Problem Qualifiers Primary Impression: Abdominal pain Abdominal location: epigastric Qualified Codes: R10.13 - Epigastric pain
[2017-03-01 12:28] VITALS: BP 154/84; PULSE 90; O2SAT 98
== END 2017-03-01 12:29 | disposition home or self-care (01) ==
LOC: C.EDB 08:06
DX: R10.13 Epigastric pain (principal); F32.9 Major depressive disorder, single episode, unspecified; K76.0 Fatty (change of) liver, not elsewhere classified; E66.01 Morbid (severe) obesity due to excess calories; K85.90 Acute pancreatitis without necrosis or infection, unspecified; Z83.3 Family history of diabetes mellitus; Z84.1 Family history of disorders of kidney and ureter; Z83.79 Family history of other diseases of the digestive system; Z79.899 Other long term (current) drug therapy

== ENCOUNTER 2017-04-30 14:18 | Emergency (ER) | payer BC ==
[~2017-04-30] VITALS: Ht 167.6 cm; Wt 137.3 kg
[~2017-04-30 14:18] MED LIST changes: +DICY10CA55 PO; +PROM25TA9 PO; -ZNTT/150 PO
[2017-04-30 14:25] VITALS: TEMP 37.4; Ht 167.6 cm; Wt 137.3 kg
--- NOTE | 2017-04-30 14:56 | EMERGENCY ROOM VISIT NOTE ---
History Report prepared by Batsheva: Tosha Grimm Under the Supervision of: Dr. Yudy Andres M.D. First contact with patient: 14:29 Chief Complaint: ABDOMINAL PAIN Stated Complaint: ABD PAIN AND DIZZINESS History of Present Illness The patient is a 27 year old female who presents to the Emergency Room with complaints of persistent abdominal pain for the past several days. She rates her discomfort as an 8/10 in severity. She reports she went to a local [facility] clinic earlier today for blood work. Her doctor told her to come to the ED because her Hemoglobin came back lower than with previous labs. She reports she underwent an ERCP by Dr. Basil Young of [facility] on April 21. She has previously undergone a cholecystectomy. The patient admits to drinking alcohol last night and states she has a history of pancreatitis. She also complains of dizziness and melena. She denies any hematochezia. Source of History: patient Onset: past several days Position: abdomen Symptom Intensity: 8/10 Timing: other (persistent) Associated Symptoms: + melena, + weakness, No hematochezia Review of Systems See HPI for pertinent positives & negatives. A total of 10 systems reviewed and were otherwise negative. Past Medical & Surgical Medical Problems: (1) Abdominal pain (2) Abnormal vaginal bleeding (3) Depression (4) Hepatic steatosis (5) Morbid obesity (6) Pancreatitis (7) Uterine fibroid (8) Uterine fibroid Surgical Problems: (1) H/O esophagogastroduodenoscopy (2) History of esophagogastroduodenoscopy (EGD) (3) S/P cholecystectomy Family History Diabetes mellitus FATHER FH: kidney failure FATHER FH: rheumatoid arthritis MOTHER FHx: pancreatic disease Uncle (Uncle from pancreatitis) Heart disease FATHER Social History Smoking Status: Never Smoker Alcohol Use: occasionally Marital Status: in relationship Housing Status: lives alone 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 Current/Historical Medications Scheduled Multivitamin (Multivitamin), 1 TAB PO DAILY Probiotic Product (Probiotic), 1 CAP PO DAILY Scheduled PRN Acetaminophen (Tylenol), 500 MG PO DIRECTED PRN for Pain or Fever Dicyclomine Hcl (Bentyl), 10 MG PO DAILY PRN for ABD PAIN Hydrocodone/Acetaminophen 5MG/325MG ([place] 5MG/325MG), 1 TABLET PO Q6 PRN for Pain Ibuprofen (Advil), 200-600 MG PO Q4H PRN for Pain or Fever Lorazepam (Lorazepam), 1 TAB PO TID PRN for Anxiety Meclizine Hcl (Meclizine Hcl), 1 TAB PO Q6H PRN for Dizziness or Vertigo Promethazine Hcl (Phenergan), 25 MG PO Q4H PRN for Nausea Allergies Coded Allergies: Pantoprazole (Verified Allergy, Intermediate, "ITCHY ALL OVER", 04/30/17) Ondansetron (Verified Allergy, Unknown, lip tingling, 04/30/17) Morphine (Verified Adverse Reaction, Intermediate, ITCHINESS, 04/30/17) Physical Exam Vital Signs Date Time Temp Pulse Resp B/P (MAP) Pulse Ox O2 Delivery O2 Flow Rate FiO2 04/30/17 18:39 100 20 150/84 99 04/30/17 17:58 102 20 144/87 97 Room Air 04/30/17 16:58 102 20 152/111 97 Room Air 04/30/17 15:21 114 04/30/17 14:25 37.4 124 18 125/57 97 Room Air Physical Exam Vital signs reviewed. General: Obese, generally well-appearing 27 year old female, in no significant distress. HEENT: No scleral icterus, PERRLA, neck supple. Atraumatic. Cardiovascular: Regular rate and rhythm, no extra sounds. Pulmonary: Clear to auscultation bilaterally, normal work of breathing. Abdomen: Soft, mild epigastric tenderness, nondistended, positive bowel sounds Rectal: Minimal stool, guaiac negative. Musculoskeletal: Atraumatic, no peripheral edema. Neurologic: Patient awake alert and oriented x 3 Skin: Warm, dry, no rash Medical Decision & Procedures ER Provider Diagnostic Interpretation: Radiology results as stated below per my review and radiologist interpretation: CHEST ONE VIEW PORTABLE CLINICAL HISTORY: GI bleed. COMPARISON STUDY: Chest radiograph and chest CT March 01, 2017. FINDINGS: Lung volumes are normal. There is no consolidation or evidence of pulmonary edema. Cardiomediastinal silhouette is normal. The appearance of the chest is unchanged. IMPRESSION: No acute cardiopulmonary findings. Electronically signed by: Kadeem Fuentes M.D. 04/30/2017 3:18 PM Laboratory Results 04/30/17 14:55 Red Blood Count 4.29, Mean Corpuscular Volume 86.5, Mean Corpuscular Hemoglobin 28.2, Mean Corpuscular Hemoglobin Concent 32.6, Mean Platelet Volume 9.0, Neutrophils (%) (Auto) 65.4, Lymphocytes (%) (Auto) 28.1, Monocytes (%) (Auto) 5.9, Eosinophils (%) (Auto) 0.0, Basophils (%) (Auto) 0.3, Neutrophils # (Auto) 5.09, Lymphocytes # (Auto) 2.19, Monocytes # (Auto) 0.46, Eosinophils # (Auto) 0.00, Basophils # (Auto) 0.02 04/30/17 14:55 Test 04/30/17 14:55 04/30/17 15:07 04/30/17 17:25 White Blood Count 7.78 K/uL (4.8-10.8) Red Blood Count 4.29 M/uL (4.2-5.4) Hemoglobin 12.1 g/dL (12.0-16.0) Hematocrit 37.1 % (37-47) Mean Corpuscular Volume 86.5 fL (80-100) Mean Corpuscular Hemoglobin 28.2 pg (25-34) Mean Corpuscular Hemoglobin Concent 32.6 g/dl (32-36) Platelet Count 459 K/uL (130-400) Mean Platelet Volume 9.0 fL (7.4-10.4) Neutrophils (%) (Auto) 65.4 % Lymphocytes (%) (Auto) 28.1 % Monocytes (%) (Auto) 5.9 % Eosinophils (%) (Auto) 0.0 % Basophils (%) (Auto) 0.3 % Neutrophils # (Auto) 5.09 K/uL (1.4-6.5) Lymphocytes # (Auto) 2.19 K/uL (1.2-3.4) Monocytes # (Auto) 0.46 K/uL (0.11-0.59) Eosinophils # (Auto) 0.00 K/uL (0-0.5) Basophils # (Auto) 0.02 K/uL (0-0.2) RDW Standard Deviation 56.3 fL (36.4-46.3) RDW Coefficient of Variation 17.9 % (11.5-14.5) Immature Granulocyte % (Auto) 0.3 % Immature Granulocyte # (Auto) 0.02 K/uL (0.00-0.02) Prothrombin Time 10.6 SECONDS (9.0-12.0) Prothromb Time International Ratio 1.0 (0.9-1.1) Activated Partial Thromboplast Time 24.7 SECONDS (21.0-31.0) Partial Thromboplastin Ratio 1.0 Est Creatinine Clear Calc Drug Dose 126.1 ml/min Estimated GFR () 95.0 Estimated GFR (Non- 82.0 BUN/Creatinine Ratio 7.8 (10-20) Calcium Level 8.5 mg/dl (8.5-10.1) Total Bilirubin 1.4 mg/dl (0.2-1) Direct Bilirubin 0.4 mg/dl (0-0.2) Aspartate Amino Transf (AST/SGOT) 101 U/L (15-37) Alanine Aminotransferase (ALT/SGPT) 81 U/L (12-78) Alkaline Phosphatase 93 U/L (45-117) Total Protein 8.4 gm/dl (6.4-8.2) Albumin 3.7 gm/dl (3.4-5.0) Lipase 164 U/L (73-393) Bedside Hemoglobin 13.6 g/dl (12.0-16.0) Bedside Hematocrit 40 % (37-47) Bedside Sodium 139 mEq/L (135-144) Bedside Potassium 3.7 mEq/L (3.3-5.0) Bedside Chloride 70 mEq/L (101-112) Bedside Total CO2 24 mEq/l (24-31) Anion Gap 50.0 mmol/L (16-25) Bedside Blood Urea Nitrogen 7 mg/dl (7-18) Bedside Creatinine 0.9 mg/dl (0.6-1.3) Bedside Glucose (other) 100 mg/dl (70-99) Bedside Ionized Calcium (Noe) 1.12 mmol/l (1.12-1.32) Urine Color YELLOW Urine Appearance CLEAR (CLEAR) Urine pH 5.0 (4.5-7.5) Urine Specific [place] 1.016 (1.000-1.030) Urine Protein 2+ (NEG) Urine Glucose (UA) NEG (NEG) Urine Ketones 3+ (NEG) Urine Occult Blood NEG (NEG) Urine Nitrite NEG (NEG) Urine Bilirubin NEG (NEG) Urine Urobilinogen NEG (NEG) Urine Leukocyte Esterase NEG (NEG) Urine WBC (Auto) 1-5 /hpf (0-5) Urine RBC (Auto) 0-4 /hpf (0-4) Urine Hyaline Casts (Auto) 1-5 /lpf (0-5) Urine Epithelial Cells (Auto) >30 /lpf (0-5) Urine Bacteria (Auto) NEG (NEG) Laboratory results per my review. Medications Administered Medications (Trade) Dose Ordered Sig/Marlin Route Start Time Stop Time Status Last Admin Dose Admin Hydromorphone HCl (Dilaudid Inj) 1 mg NOW STAT IV 04/30/17 17:03 04/30/17 17:04 DC 04/30/17 17:54 1 MG Promethazine HCl 12.5 mg/Sodium Chloride 50.5 ml @ 204 mls/hr NOW STAT IV 04/30/17 17:28 04/30/17 17:42 DC 04/30/17 17:54 204 MLS/HR Acetaminophen/ Hydrocodone Bitart ([place] 5/325mg Home Pack) 1 homepack UD ONCE PO 04/30/17 18:15 04/30/17 18:16 DC 04/30/17 18:33 1 HOMEPACK ECG Indication: abdominal pain Rate (beats per minute): 104 Rhythm: sinus tachycardia Findings: no acute ischemic change, no ectopy ED Course 1446: Past medical records reviewed. The patient was evaluated in room B8. A complete history and physical examination was performed. 1702: After reviewing the patients previous records, from April 07 to the , her Hemoglobin dropped from 13 to 11. She underwent an ERCP on April 21. The patient has undergone 4 CT scans of the abdomen in the past 12 months in addition to [address] 1703: Dilaudid 1 mg IV. 1728: Promethazine HCl 12.5 mg/NSS 50.5 ml @ 204 mls/hr IV. 1800: I reevaluated the patient. She is feeling well and is ready to go home. I discussed her results and discharge instructions and she verbalized complete understanding and agreement. 1815: [place] 5/325 mg 1 homepack PO. Medical Decision Differential diagnosis: Appendicitis, diverticulitis, PUD, biliary pathology, UTI, pancreatitis, obstruction, mesenteric ischemia, aortic pathology, infections, inflammatory bowel disease, renal colic, as well as others were entertained. This patient was evaluated and appeared to be in no significant distress. IV access was obtained and laboratory work was drawn. The patient was placed on the monitoring engineer revealed to be fully tachycardic. Patient is noted to be hypertensive however initially the wrong size cuff was used. She is 140/80 on my evaluation. Laboratory work reveals a stable hemoglobin per previous records at our facility, lipase is normal, white count is normal.. A guaiac stool is negative. Patient did request pain medication was given 1 mg of IV Dilaudid. She did receive Phenergan 12.5 mg IV for nausea. Patient seemed to improve and was discharged with a home pack of [place]. She was given a short prescription for 10 tablets as well. Patient was advised to stay on a clear liquid diet for the next 2 days. She'll follow-up with gastroenterology on Tuesday by phone and return to the ER for worsening of symptoms or any medical concerns. Medication Reconcilliation Current Medication List: was personally reviewed by me Blood Pressure Screening Patient's blood pressure: Elevated blood pressure Blood pressure disposition: Elevated BP felt to be situational (situational stressors and inappropriately sized cuff) Impression Primary Impression: Abdominal pain Additional Impression: H/O esophagogastroduodenoscopy Scribe Attestation The scribe's documentation has been prepared under my direction and personally reviewed by me in its entirety. I confirm that the note above accurately reflects all work, treatment, procedures, and medical decision making performed by me. Departure Information Dispostion Home / Self-Care Prescriptions Hydrocodone/Acetaminophen 5MG/325MG ([place] 5MG/325MG) Tab 1 TABLET PO Q6 Y for Pain, #10 TAB Prov: Yudy Andres M.D. 04/30/17 Referrals Logan Tsai, D.OSybil (PCP) Patient Instructions My [facility] Additional Instructions Diagnosis: Abdominal Pain s/p ERCP Drink plenty of clear fluids. Follow-up with gastroenterology on Tuesday by telephone. Continue medications as prescribed. Problem Qualifiers
[2017-04-30 15:05] LABS: BASO % 0.3 %; BASO ABS # 0.02 K/uL (0-0.2); COMPLETE YES; HEMATOCRIT 37.1 % (37-47); IG% 0.3 %; LYMPH % 28.1 %; LYMPH ABS # 2.19 K/uL (1.2-3.4); MEAN CELL VOLUME 86.5 fL (80-100); MEAN CORPUSCULAR HEMOGLOBIN 28.2 pg (25-34); MEAN CORPUSCULAR HGB CONC 32.6 g/dl (32-36); MONO % 5.9 %; NEUT % 65.4 %; PLATELET COUNT 459 K/uL (130-400); RED BLOOD COUNT 4.29 M/uL (4.2-5.4); WHITE BLOOD COUNT 7.78 K/uL (4.8-10.8)
[2017-04-30 15:18] LABS: PROTHROMBIN TIME (PATIENT) 10.6 SECONDS (9.0-12.0)
--- NOTE | 2017-04-30 15:19 | DIAGNOSTIC IMAGING REPORT ---
CHEST ONE VIEW PORTABLE CLINICAL HISTORY: GI bleed. COMPARISON STUDY: Chest radiograph and chest CT March 01, 2017. FINDINGS: Lung volumes are normal. There is no consolidation or evidence of pulmonary edema. Cardiomediastinal silhouette is normal. The appearance of the chest is unchanged. IMPRESSION: No acute cardiopulmonary findings. Electronically signed by: Kadeem Fuentes M.D. 04/30/2017 3:18 PM Dictated Date/Time: 04/30/2017 3:17 PM
[2017-04-30 15:20] LABS: ISTAT CREATININE 0.9 mg/dl (0.6-1.3); ISTAT HEMOGLOBIN 13.6 g/dl (12.0-16.0); ISTAT IONIZED CALCIUM 1.12 mmol/l (1.12-1.32)
[2017-04-30 15:24] LABS: BUN/CREATININE RATIO 7.8 (10-20); CALCIUM 8.5 mg/dl (8.5-10.1); CREATININE 0.94 mg/dl (0.60-1.20); POTASSIUM 3.6 mmol/L (3.5-5.1)
[2017-04-30] MEDS ORDERED: PROM25TA9 PO (16:14)
[2017-04-30] MEDS ORDERED: IBUP-1050 PO (16:14)
[2017-04-30] MEDS ORDERED: ACET-1256 PO (16:14)
[2017-04-30] MEDS ORDERED: MECL1TAB42 PO (16:14)
[2017-04-30] MEDS ORDERED: HYDROmorphone INJ 1 MG/ML SYR IV STA (17:03)
[2017-04-30] MEDS ORDERED: PROMETHAZINE HCL INJ 12.5 MG in SODIUM CHLORIDE 0.9% 50ML 50 ML IV STA (17:28)
[2017-04-30 17:44] LABS: URINE APPEARANCE CLEAR (CLEAR); URINE BILIRUBIN NEG (NEG); URINE COLOR YELLOW; URINE EPITHELIAL CELL AUTO >30 /lpf (0-5); URINE NITRITE NEG (NEG); URINE SPECIFIC GRAVITY 1.016 (1.000-1.030); UROBILINOGEN NEG (NEG); ZZUR CULT IF INDIC CLEAN CATCH NO
[2017-04-30 17:53] LABS: MANUAL MICROSCOPIC REQUIRED? NO; REVIEW REQ? NO
[2017-04-30] MEDS ORDERED: HYDR-5688 PO (18:10)
[2017-04-30] MEDS ORDERED: NORCO 5/325MG HOME PACK PO ONE (18:15)
[2017-04-30 18:39] VITALS: BP 150/84; PULSE 100; O2SAT 99
== END 2017-04-30 18:41 | disposition home or self-care (01) ==
LOC: C.EDB 14:20
DX: R10.9 Unspecified abdominal pain (principal); Z87.19 Personal history of other diseases of the digestive system; Z90.49 Acquired absence of other specified parts of digestive tract; K85.90 Acute pancreatitis without necrosis or infection, unspecified; R03.0 Elevated blood-pressure reading, without diagnosis of hypertension; Z83.3 Family history of diabetes mellitus; Z82.49 Family history of ischemic heart disease and other diseases of the circulatory system; Z83.79 Family history of other diseases of the digestive system; Z82.61 Family history of arthritis

== ENCOUNTER 2017-05-31 09:52 | Emergency (ER) | payer BC, OTHER ==
[~2017-05-31] VITALS: Ht 167.6 cm; Wt 138.4 kg
[~2017-05-31 09:52] MED LIST changes: +ACET-1256 PO; -ANT25 PO; +HYDR-5688 PO; +IBUP-1050 PO; +MECL1TAB42 PO
[2017-05-31 09:56] VITALS: TEMP 36.8; Ht 167.6 cm; Wt 138.4 kg
[2017-05-31] MEDS ORDERED: ONDANSETRON INJ 2 MG/ML 2 ML VIAL IV STA (10:22)
[2017-05-31] MEDS ORDERED: KETOROLAC TROMETHAMINE 30 MG/ML VIAL IV STA (10:22)
[2017-05-31] MEDS ORDERED: SODIUM CHLORIDE 0.9% 1000ML 1,000 ML IV STA (10:22)
[2017-05-31] MEDS ORDERED: PROMETHAZINE HCL INJ 12.5 MG in SODIUM CHLORIDE 0.9% 50ML 50 ML IV STA (10:49)
--- NOTE | 2017-05-31 10:55 | DIAGNOSTIC IMAGING REPORT ---
CHEST ONE VIEW PORTABLE CLINICAL HISTORY: cough dyspnea COMPARISON STUDY: 04/30/2017 FINDINGS: The bones soft tissues and hemidiaphragms are normal. The cardiomediastinal silhouette is normal. The lungs are clear. The pulmonary vasculature is normal. IMPRESSION: Negative chest. The above report was generated using voice recognition software. It may contain grammatical, syntax or spelling errors. Electronically signed by: Toro Singh M.D. 05/31/2017 10:54 AM Dictated Date/Time: 05/31/2017 10:54 AM
[2017-05-31 10:59] LABS: BASO % 0.8 %; BASO ABS # 0.04 K/uL (0-0.2); EOS % 0.2 %; EOS ABS # 0.01 K/uL (0-0.5); HEMATOCRIT 36.6 % (37-47); HEMOGLOBIN 11.9 g/dL (12.0-16.0); IG# 0.01 K/uL (0.00-0.02); LYMPH % 44.8 %; LYMPH ABS # 2.17 K/uL (1.2-3.4); MEAN CELL VOLUME 81.3 fL (80-100); MEAN CORPUSCULAR HEMOGLOBIN 26.4 pg (25-34); MEAN CORPUSCULAR HGB CONC 32.5 g/dl (32-36); MONO % 8.7 %; MONO ABS # 0.42 K/uL (0.11-0.59); NEUT % 45.3 %; NEUT ABS # 2.19 K/uL (1.4-6.5); PLATELET COUNT 450 K/uL (130-400); RED CELL DISTRIBUTION WIDTH CV 18.4 % (11.5-14.5); RED CELL DISTRIBUTION WIDTH SD 54.9 fL (36.4-46.3); WHITE BLOOD COUNT 4.84 K/uL (4.8-10.8)
[2017-05-31 11:18] LABS: ALBUMIN 3.6 gm/dl (3.4-5.0); BLOOD UREA NITROGEN 7 mg/dl (7-18); CALCIUM 8.4 mg/dl (8.5-10.1); CARBON DIOXIDE 24 mmol/L (21-32); CREATININE 0.93 mg/dl (0.60-1.20); GLUCOSE 95 mg/dl (70-99); LIPASE 129 U/L (73-393); POTASSIUM 3.9 mmol/L (3.5-5.1); SODIUM 137 mmol/L (136-145)
[2017-05-31] MEDS ORDERED: PRLSR20 PO (11:25)
[2017-05-31 11:32] LABS: ALKALINE PHOSPHATASE 97 U/L (45-117); ALT/SGPT 44 U/L (12-78); AST/SGOT 66 U/L (15-37); TOTAL PROTEIN 8.3 gm/dl (6.4-8.2)
[2017-05-31 12:47] VITALS: BP 172/112; PULSE 105; O2SAT 98
--- NOTE | 2017-05-31 16:24 | EMERGENCY ROOM VISIT NOTE ---
History Report prepared by Batsheva: Michael Mendez Under the Supervision of: Dr. Mendoza Reynolds D.O. First contact with patient: 10:11 Chief Complaint: ILLNESS Stated Complaint: DOUBLE VISION;HEADACHE History of Present Illness The patient is a 27 year old female who presents to the Emergency Room with complaints of intermittent double vision that started upon waking yesterday morning. Symptoms come and go intermittently throughout the day. She states that she sees images next to each other. The patient says that nothing makes it better or worse. She adds that she has had a headache since yesterday on her right side. Denies any trauma. The patient notes that she also has right arm pain, and denies any recent trauma to the arm. The patient says that she has been nauseous, and vomited yesterday. She says that she took anti-nausea medication which helped. Per the patient's significant other, the patient had an episode of double vision before , but it went away with a couple hours of rest. The patient notes that she had a cholecystectomy this past summer , and has been having intermittent abdominal issues since then, but denies any worsened abdominal pain. She adds that she has had intermittent pain and burning with urination since the surgery, but the burning has been persistent for the past week. She has a history of UTI's, and she states that this feels similar. The patient denies any chest pain, shortness of breath, or weakness in her arms or legs. Patient denies any drugs or alcohol. Source of History: patient, spouse/significant other Onset: Upon waking yesterday morning Position: eye (bilateral) Quality: other (double vision) Timing: intermittent Associated Symptoms: + headache, + nausea, + vomiting, + abdominal pain ( but nothing worsened since cholecystectomy), + urinary symptoms, No chest pain, No SOB, No weakness (arms or legs) Note: Associated symptoms: Right arm pain. Review of Systems See HPI for pertinent positives & negatives. A total of 10 systems reviewed and were otherwise negative. Past Medical & Surgical Medical Problems: (1) Abdominal pain (2) Abnormal vaginal bleeding (3) Depression (4) Hepatic steatosis (5) Morbid obesity (6) Pancreatitis (7) Uterine fibroid (8) Uterine fibroid Surgical Problems: (1) H/O esophagogastroduodenoscopy (2) History of esophagogastroduodenoscopy (EGD) (3) S/P cholecystectomy Family History Diabetes mellitus FATHER FH: kidney failure FATHER FH: rheumatoid arthritis MOTHER FHx: pancreatic disease Uncle (Uncle from pancreatitis) Heart disease FATHER Social History Smoking Status: Never Smoker Alcohol Use: occasionally Marital Status: in relationship Housing Status: lives alone 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 Current/Historical Medications Scheduled PRN Dicyclomine Hcl (Bentyl), 10 MG PO DAILY PRN for ABD PAIN Lorazepam (Lorazepam), 1 TAB PO TID PRN for Anxiety Omeprazole (Prilosec), 1 CAP PO DAILY PRN for GERD Promethazine Hcl (Phenergan), 25 MG PO Q4H PRN for Nausea Allergies Coded Allergies: Pantoprazole (Verified Allergy, Intermediate, "ITCHY ALL OVER", 05/31/17) Ondansetron (Verified Allergy, Unknown, lip tingling, 05/31/17) Morphine (Verified Adverse Reaction, Intermediate, ITCHINESS, 05/31/17) Physical Exam Vital Signs Date Time Temp Pulse Resp B/P (MAP) Pulse Ox O2 Delivery O2 Flow Rate FiO2 05/31/17 12:47 105 16 172/112 98 05/31/17 11:14 89 16 147/116 99 Room Air 05/31/17 09:56 36.8 105 18 145/102 98 Room Air Physical Exam GENERAL: Sitting up in bed, alert, well appearing, well nourished, no distress, smell of alcohol on breath EYE EXAM: conjunctiva injected B/L, PERRL and EOM's intact. OROPHARYNX: no exudate, no erythema, lips, buccal mucosa, and tongue normal and mucous membranes are dry NECK: supple, no nuchal rigidity, no adenopathy, non-tender LUNGS: Clear to auscultation. Normal chest wall mechanics HEART: no murmurs, S1 normal and S2 normal ABDOMEN: abdomen soft, tenderness to palpation in right upper quadrant, normo- active bowel sounds, no masses, no rebound or guarding. BACK: Back is symmetrical on inspection and there is no deformity, no midline tenderness, no CVA tenderness. SKIN: no rashes and no bruising UPPER EXTREMITIES: upper extremities are grossly normal. LOWER EXTREMITIES: No pitting edema. NEURO EXAM: Normal sensorium, cranial nerves II-XII intact, normal speech, no weakness of arms, no weakness of legs. No drift. Finger to nose intact. Gross sensation intact. Medical Decision & Procedures ER Provider Diagnostic Interpretation: X-ray results as stated below per my review and the radiologist's interpretation : CHEST ONE VIEW PORTABLE CLINICAL HISTORY: cough dyspnea COMPARISON STUDY: 04/30/2017 FINDINGS: The bones soft tissues and hemidiaphragms are normal. The cardiomediastinal silhouette is normal. The lungs are clear. The pulmonary vasculature is normal. IMPRESSION: Negative chest. The above report was generated using voice recognition software. It may contain grammatical, syntax or spelling errors. Electronically signed by: Toro Singh M.D. 05/31/2017 10:54 AM Dictated Date/Time: 05/31/2017 10:54 AM Laboratory Results 05/31/17 10:37 Red Blood Count 4.50, Mean Corpuscular Volume 81.3, Mean Corpuscular Hemoglobin 26.4, Mean Corpuscular Hemoglobin Concent 32.5, Mean Platelet Volume 10.0, Neutrophils (%) (Auto) 45.3, Lymphocytes (%) (Auto) 44.8, Monocytes (%) (Auto) 8.7, Eosinophils (%) (Auto) 0.2, Basophils (%) (Auto) 0.8, Neutrophils # (Auto) 2.19, Lymphocytes # (Auto) 2.17, Monocytes # (Auto) 0.42, Eosinophils # (Auto) 0.01, Basophils # (Auto) 0.04 05/31/17 10:37 Test 05/31/17 10:37 White Blood Count 4.84 K/uL (4.8-10.8) Red Blood Count 4.50 M/uL (4.2-5.4) Hemoglobin 11.9 g/dL (12.0-16.0) Hematocrit 36.6 % (37-47) Mean Corpuscular Volume 81.3 fL (80-100) Mean Corpuscular Hemoglobin 26.4 pg (25-34) Mean Corpuscular Hemoglobin Concent 32.5 g/dl (32-36) Platelet Count 450 K/uL (130-400) Mean Platelet Volume 10.0 fL (7.4-10.4) Neutrophils (%) (Auto) 45.3 % Lymphocytes (%) (Auto) 44.8 % Monocytes (%) (Auto) 8.7 % Eosinophils (%) (Auto) 0.2 % Basophils (%) (Auto) 0.8 % Neutrophils # (Auto) 2.19 K/uL (1.4-6.5) Lymphocytes # (Auto) 2.17 K/uL (1.2-3.4) Monocytes # (Auto) 0.42 K/uL (0.11-0.59) Eosinophils # (Auto) 0.01 K/uL (0-0.5) Basophils # (Auto) 0.04 K/uL (0-0.2) RDW Standard Deviation 54.9 fL (36.4-46.3) RDW Coefficient of Variation 18.4 % (11.5-14.5) Immature Granulocyte % (Auto) 0.2 % Immature Granulocyte # (Auto) 0.01 K/uL (0.00-0.02) Anion Gap 9.0 mmol/L (3-11) Est Creatinine Clear Calc Drug Dose 128.1 ml/min Estimated GFR () 96.3 Estimated GFR (Non- 83.1 BUN/Creatinine Ratio 8.0 (10-20) Calcium Level 8.4 mg/dl (8.5-10.1) Total Bilirubin 0.4 mg/dl (0.2-1) Direct Bilirubin < 0.1 mg/dl (0-0.2) Aspartate Amino Transf (AST/SGOT) 66 U/L (15-37) Alanine Aminotransferase (ALT/SGPT) 44 U/L (12-78) Alkaline Phosphatase 97 U/L (45-117) Total Protein 8.3 gm/dl (6.4-8.2) Albumin 3.6 gm/dl (3.4-5.0) Lipase 129 U/L (73-393) Ethyl Alcohol mg/dL 223.0 mg/dl (0-3) Laboratory results per my review. Medications Administered Medications (Trade) Dose Ordered Sig/Marlin Route Start Time Stop Time Status Last Admin Dose Admin Sodium Chloride 1,000 ml @ 999 mls/hr Q1H1M STAT IV 05/31/17 10:22 05/31/17 11:22 DC 05/31/17 11:12 999 MLS/HR Ketorolac Tromethamine (Toradol Inj) 30 mg NOW STAT IV 05/31/17 10:22 05/31/17 10:24 DC 05/31/17 11:13 30 MG Promethazine HCl 12.5 mg/Sodium Chloride 50.5 ml @ 204 mls/hr NOW STAT IV 05/31/17 10:49 05/31/17 11:03 DC 05/31/17 11:12 204 MLS/HR ECG Indication: vomiting Rate (beats per minute): 92 Rhythm: sinus rhythm Findings: no ectopy, other (normal axis) ED Course ED COURSE: Vital signs were reviewed and showed hypertensive vitals. The patients medical record was reviewed The above diagnostic studies were performed and reviewed. ED treatments and interventions as stated above. 1012: The patient was evaluated in room C7. A complete history and physical examination was performed. 1022: Ordered Toradol Inj 30 mg IV, Zofran Inj 4 mg IV, NSS 1000 ml @ 999 mls/ hr IV. 1049: Ordered Promethazine HCl 12.5 mg/Sodium Chloride 50.5 ml @ 204 mls/hr IV. 1153: I reevaluated and updated the patient. 1218: I reevaluated the patient and informed her that her alcohol was 230, and she and her significant other do not understand how it would be this high, and the significant other is annoyed that the patient is being accused of drinking. 1231: Upon reevaluation, the patient and her significant other want to leave. I discussed my findings and the risk and benefits with the patient and she understands and wants to go home. Based on the patients age, coexisting illnesses, exam and lab findings the decision to treat as an outpatient was made, as the patient wants to leave A. The patient remained stable while under my care. The patient appeared well at the time of discharge. Medical Decision Differential Diagnosis includes but is not limited to headache, tension headache , cluster headache, migraine, subarachnoid hemorrhage, meningitis, mass, central venous thrombus, concussion, trauma and epidural/subdural hemorrhage. Patient is a 27-year-old female who presents to ER for mild headache and blurred /double vision. She notes this has been intermittent chest rate. No fevers. No signs meningitis or encephalitis. On exam patient has injected eyes and small of alcohol on breath. Alcohol was 230. CBC all BMP, LFTs, bilirubin and lipase is unremarkable. Unable to obtain UA. A stone or symptoms of did recommend CT head which would to rule out any, bleed from trauma which she declines and any possible stroke. After a long discussion with her and significant other in regards to the elevated alcohol they were very upset. They 're uncertain as to how her alcohol is elevated. Inform them that I can't tell her for certain how this occurred but she is clearly intoxicated. Prior to resolving alcoholic to give her some Toradol and Phenergan. Patient did feel slightly better. I recommended CT head. Was called to bedside as they initially wanted to leave. I eventually convinced him to stay for a CT head. Just prior to going over for the CT they declined again. At this time I explained risk and benefits to the significant other. He understood no surveillance declined he will monitor her for the remainder of the night. Patient also admits to chronic right upper quadrant abdominal pain following the cholecystectomy for the past 6-8 months. Discussed with Pt concerning signs and symptoms to watch out for. Pt was instructed to follow up with their PCP and discussed with the patient their option to return to the ED at anytime for persistent or worsening symptoms. The appropriate anticipatory guidance and out-patient management, including indications for return to the emergency department, were explained at length to the patient and understood. Medication Reconcilliation Current Medication List: was personally reviewed by me Blood Pressure Screening Patient's blood pressure: Elevated blood pressure Blood pressure disposition: Elevated BP felt to be situational Impression Primary Impression: Double vision Additional Impressions: Weakness Abdominal pain Scribe Attestation The scribe's documentation has been prepared under my direction and personally reviewed by me in its entirety. I confirm that the note above accurately reflects all work, treatment, procedures, and medical decision making performed by me. Departure Information Dispostion Against Medical Advice Referrals Logan Tsai, D.O. (PCP) Patient Instructions ED Alcohol Abuse, ED Double Vision, My [facility] Additional Instructions Please follow up with your primary care doctor or if you are a student, [facility] with in the next 24 hours. Any worsening of your symptoms, please return to the ED immediately. This includes any fevers greater than 100.4, worsening pain, chest pain, shortness breath, persistent nausea, vomiting, unable to eat or drink, or any other concerning signs or symptoms from your standpoint. You were given medications during this visit that will inhibit your ability to drive, operate machinery and work. Please do NOT drive, operate machinery, drink alcohol or work for the next 24 hrs. Problem Qualifiers Additional Impressions: Abdominal pain Abdominal location: unspecified location Qualified Codes: R10.9 - Unspecified abdominal pain
== END 2017-05-31 12:49 | disposition home or self-care (01) ==
LOC: C.EDB 09:53 → C.EDC 12:49
DX: H53.2 Diplopia (principal); R53.1 Weakness; R10.9 Unspecified abdominal pain; F32.9 Major depressive disorder, single episode, unspecified; K86.1 Other chronic pancreatitis; E88.89 Other specified metabolic disorders; Z90.49 Acquired absence of other specified parts of digestive tract; Z98.890 Other specified postprocedural states; Z79.899 Other long term (current) drug therapy; Z88.5 Allergy status to narcotic agent; Z88.8 Allergy status to other drugs, medicaments and biological substances; Z83.3 Family history of diabetes mellitus; Z84.1 Family history of disorders of kidney and ureter; Z82.49 Family history of ischemic heart disease and other diseases of the circulatory system; Z83.79 Family history of other diseases of the digestive system

== ENCOUNTER 2017-07-03 17:07 | Inpatient (IN) | payer OTHER ==
[~2017-07-03] VITALS: Ht 167.6 cm; Wt 138.2 kg
[~2017-07-03 17:07] MED LIST changes: -ACET-1256 PO; -HYDR-5688 PO; -IBUP-1050 PO; -MECL1TAB42 PO; -MISCCAP80 PO; -MULT-506 PO; +PRLSR20 PO
[2017-07-03] MEDS ORDERED: PROMETHAZINE HCL INJ 12.5 MG in SODIUM CHLORIDE 0.9% 50ML 50 ML IV STA (19:34)
[2017-07-03] MEDS ORDERED: DiphenhydrAMINE HCL 50 MG/ML VIAL IV STA (19:34)
[2017-07-03] MEDS ORDERED: SODIUM CHLORIDE 0.9% 1000ML 1,000 ML IV STA ×2 (19:34→21:48)
[2017-07-03] MEDS ORDERED: KETOROLAC TROMETHAMINE 30 MG/ML VIAL IV STA ×2 (19:34→23:52)
[2017-07-03] MEDS ORDERED: LEVO1TAB33 PO (19:58)
[2017-07-03] MEDS ORDERED: ALBUT/IPRATROP 3MG/0.5MG NEB 3 ML VIAL INH STA (20:03)
--- NOTE | 2017-07-03 20:10 | EMERGENCY ROOM VISIT NOTE ---
History Report prepared by Batsheva: Nata Gandhi Under the Supervision of: Dr. Mathew Murdock M.D. First contact with patient: 19:29 Chief Complaint: VOMITING Stated Complaint: COUGH RELATED TO PNEUMONIA, SHANINESS,VOMITING Nursing Triage Summary: Pt c/o n/v since this am Abdominal pain "all over" History of Present Illness The patient is a 27 year old female who presents to the Emergency Room with complaints of worsening vomiting starting this morning. She has been nauseous and vomiting all day. She did not have any nausea or vomiting yesterday. Her symptoms worsened as the day progressed. She has vomited after coughing, but is also vomiting without coughing. She has been unable to take her medications. She has abdominal pain which is all over. Her abdominal pain seems to be worsening as she continues vomiting. She also reports back pain, fever, and chills. She has had a cough recently. She was diagnosed with pneumonia 5 days ago. She is currently on Levaquin and an inhaler. She has not noticed any diarrhea. She denies any history of asthma or lung disease. She has not had pneumonia before. 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 She has no known sick contacts. She denies any chance of . Her menstrual period started today. She has had abdominal pain and nausea with her period in the past. She has a history of cholecystectomy. Source of History: patient Onset: this morning Position: other (global) Quality: other (vomiting) Timing: worsening Modifying Factors (Worsening): other (coughing) Associated Symptoms: + fevers, + chills, + cough, + nausea, + abdominal pain , + back pain, No diarrhea Review of Systems See HPI for pertinent positives & negatives. A total of 10 systems reviewed and were otherwise negative. Past Medical & Surgical Medical Problems: (1) Abdominal pain (2) Abnormal vaginal bleeding (3) Depression (4) Hepatic steatosis (5) Morbid obesity (6) Nausea and vomiting (7) Pancreatitis (8) Uterine fibroid (9) Uterine fibroid Surgical Problems: (1) H/O esophagogastroduodenoscopy (2) History of esophagogastroduodenoscopy (EGD) (3) S/P cholecystectomy Family History Diabetes mellitus FATHER FH: kidney failure FATHER FH: rheumatoid arthritis MOTHER FHx: pancreatic disease Uncle (Uncle from pancreatitis) Heart disease FATHER Social History Smoking Status: Never Smoker Alcohol Use: occasionally Marital Status: in relationship Housing Status: lives alone 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 Current/Historical Medications Scheduled Levofloxacin (Levofloxacin), 500 MG PO DAILY Loratadine (Claritin), 1 CAP PO DAILY Omeprazole (Cvs Omeprazole), 40 MG PO BID Scheduled PRN Albuterol Sulfate (Proair Respiclick), 2 PUFF INH QID PRN for wheezing Dicyclomine Hcl (Bentyl), 10 MG PO DAILY PRN for ABD PAIN Dicyclomine Hcl (Bentyl), 1 CAP PO BID PRN for abdominal cramping Lorazepam (Lorazepam), 1 TAB PO TID PRN for Anxiety Promethazine Hcl (Phenergan), 25 MG PO Q4H PRN for Nausea Allergies Coded Allergies: Pantoprazole (Verified Allergy, Intermediate, "ITCHY ALL OVER", 05/31/17) Ondansetron (Verified Allergy, Unknown, lip tingling, 05/31/17) Morphine (Verified Adverse Reaction, Intermediate, ITCHINESS, 05/31/17) Physical Exam Vital Signs Date Time Temp Pulse Resp B/P (MAP) Pulse Ox O2 Delivery O2 Flow Rate FiO2 07/03/17 23:46 36.6 105 20 144/77 99 07/03/17 22:01 105 125/57 99 Room Air 07/03/17 21:11 108 07/03/17 21:07 108 21 164/98 100 Room Air 07/03/17 20:18 97 22 164/119 100 Room Air 07/03/17 17:51 36.6 118 19 131/105 97 Room Air Physical Exam GENERAL: Patient is in moderate distress, actively vomiting. HEENT: No acute trauma, normocephalic atraumatic, mucous membranes moist, no nasal congestion, no scleral icterus. NECK: No stridor, no adenopathy, no meningismus, trachea is midline. LUNGS: Crackles on the left. Right lung is clear. No wheezes. No respiratory distress. HEART: Tachycardic with a regular rhythm. No murmurs. ABDOMEN: Soft, diffusely moderately tender, bowel sounds positive, no hernias, no peritonitis. EXTREMITIES: No cyanosis or edema, full range of motion of all the joints without pain or difficulty, no signs for acute trauma. NEUROLOGIC: Oriented x 3, no acute motor or sensory deficits, no focal weakness. SKIN: No rash, no jaundice, no diaphoresis. Medical Decision & Procedures ER Provider Diagnostic Interpretation: X-ray results as stated below per interpretation by me and the radiologist: ABDOMEN 2VIEW W/PA CHEST RTN CLINICAL HISTORY: pain, vomiting nausea COMPARISON STUDY: 05/31/2017 FINDINGS: The soft tissues, psoas shadows, renal outlines and intestinal gas pattern appear normal. There is no evidence for bowel obstruction. There is no evidence for free intraperitoneal air. No abnormal abdominal calcifications are seen. A frontal view of the chest was performed and is unremarkable. IMPRESSION: Normal study. The above report was generated using voice recognition software. It may contain grammatical, syntax or spelling errors. Electronically signed by: Toro Singh M.D. 07/03/2017 8:58 PM Dictated Date/Time: 07/03/2017 8:56 PM Laboratory Results 07/03/17 19:55 Red Blood Count 5.17, Mean Corpuscular Volume 79.7, Mean Corpuscular Hemoglobin 25.5, Mean Corpuscular Hemoglobin Concent 32.0, Mean Platelet Volume 10.1, Neutrophils (%) (Auto) 78.0, Lymphocytes (%) (Auto) 16.9, Monocytes (%) (Auto) 4.4, Eosinophils (%) (Auto) 0.0, Basophils (%) (Auto) 0.3, Neutrophils # (Auto) 6.05, Lymphocytes # (Auto) 1.31, Monocytes # (Auto) 0.34, Eosinophils # (Auto) 0.00, Basophils # (Auto) 0.02 07/03/17 19:55 Test 07/03/17 19:55 07/03/17 20:17 07/03/17 20:20 07/03/17 20:56 White Blood Count 7.75 K/uL (4.8-10.8) Red Blood Count 5.17 M/uL (4.2-5.4) Hemoglobin 13.2 g/dL (12.0-16.0) Hematocrit 41.2 % (37-47) Mean Corpuscular Volume 79.7 fL (80-100) Mean Corpuscular Hemoglobin 25.5 pg (25-34) Mean Corpuscular Hemoglobin Concent 32.0 g/dl (32-36) Platelet Count 401 K/uL (130-400) Mean Platelet Volume 10.1 fL (7.4-10.4) Neutrophils (%) (Auto) 78.0 % Lymphocytes (%) (Auto) 16.9 % Monocytes (%) (Auto) 4.4 % Eosinophils (%) (Auto) 0.0 % Basophils (%) (Auto) 0.3 % Neutrophils # (Auto) 6.05 K/uL (1.4-6.5) Lymphocytes # (Auto) 1.31 K/uL (1.2-3.4) Monocytes # (Auto) 0.34 K/uL (0.11-0.59) Eosinophils # (Auto) 0.00 K/uL (0-0.5) Basophils # (Auto) 0.02 K/uL (0-0.2) RDW Standard Deviation 59.1 fL (36.4-46.3) RDW Coefficient of Variation 20.4 % (11.5-14.5) Immature Granulocyte % (Auto) 0.4 % Immature Granulocyte # (Auto) 0.03 K/uL (0.00-0.02) Giant Platelets 1+ Hypochromasia PRESENT Anisocytosis PRESENT Microcytosis PRESENT Anion Gap 18.0 mmol/L (3-11) Estimated GFR () 93.8 Estimated GFR (Non- 80.9 BUN/Creatinine Ratio 6.7 (10-20) Calcium Level 9.2 mg/dl (8.5-10.1) Magnesium Level 1.6 mg/dl (1.8-2.4) Total Bilirubin 0.8 mg/dl (0.2-1) Aspartate Amino Transf (AST/SGOT) 102 U/L (15-37) Alanine Aminotransferase (ALT/SGPT) 81 U/L (12-78) Alkaline Phosphatase 125 U/L (45-117) Total Protein 9.3 gm/dl (6.4-8.2) Albumin 3.9 gm/dl (3.4-5.0) Globulin 5.4 gm/dl (2.5-4.0) Albumin/Globulin Ratio 0.7 (0.9-2) Lipase 189 U/L (73-393) Human Chorionic Gonadotropin, Qual NEG (NEG) Influenza Type A Antigen Neg for Influ A (NEG) Influenza Type B Antigen Neg for Influ B (NEG) Urine Color DK YELLOW Urine Appearance CLEAR (CLEAR) Urine pH 6.0 (4.5-7.5) Urine Specific [place] 1.034 (1.000-1.030) Urine Protein 3+ (NEG) Urine Glucose (UA) NEG (NEG) Urine Ketones 4+ (NEG) Urine Occult Blood 3+ (NEG) Urine Nitrite NEG (NEG) Urine Bilirubin NEG (NEG) Urine Urobilinogen NEG (NEG) Urine Leukocyte Esterase TRACE (NEG) Urine WBC (Auto) 10-30 /hpf (0-5) Urine RBC (Auto) >30 /hpf (0-4) Urine Hyaline Casts (Auto) 0 /lpf (0-5) Urine Epithelial Cells (Auto) >30 /lpf (0-5) Urine Bacteria (Auto) NEG (NEG) Urine Pathogenic Casts /lpf (0) Laboratory results reviewed by me. Medications Administered Medications (Trade) Dose Ordered Sig/Marlin Route Start Time Stop Time Status Last Admin Dose Admin Sodium Chloride 1,000 ml @ 999 mls/hr Q1H1M STAT IV 07/03/17 19:34 07/03/17 20:34 DC 07/03/17 20:03 999 MLS/HR Promethazine HCl 12.5 mg/Sodium Chloride 50.5 ml @ 204 mls/hr NOW STAT IV 07/03/17 19:34 07/03/17 19:48 DC 07/03/17 20:02 204 MLS/HR Diphenhydramine HCl (Benadryl Inj) 25 mg NOW STAT IV 07/03/17 19:34 07/03/17 19:39 DC 07/03/17 20:02 25 MG Ketorolac Tromethamine (Toradol Inj) 30 mg NOW STAT IV 07/03/17 19:34 07/03/17 19:39 DC 07/03/17 20:03 30 MG Albuterol/ Ipratropium (Duoneb) 3 ml NOW STAT INH 07/03/17 20:03 07/03/17 20:04 DC 07/03/17 20:14 3 ML Magnesium Sulfate (Magnesium Sulfate) 2 gm NOW STAT IV 07/03/17 21:06 07/03/17 21:07 DC 07/03/17 21:20 2 GM Sodium Chloride 1,000 ml @ 999 mls/hr Q1H1M STAT IV 07/03/17 21:48 2/11/18 22:48 DC 07/03/17 22:02 999 MLS/HR ED Course 1929: The patient was evaluated in room C3. A complete history and physical exam was performed. 1933: Toradol Inj 30 mg IV, Benadryl Inj 25 mg IV, Promethazine HCl 12.5 mg/ Sodium Chloride 50.5 ml @ 204 mls/hr IV, NSS 1000 ml @ 999 mls/hr IV. 2002: Duoneb 3 ml INH. 2105: Magnesium Sulfate 2 gm IV. 2147: NSS 1000 ml @ 999 mls/hr IV. 2208: I reevaluated the patient. She is feeling a little better, but she is still having some symptoms. I discussed the results with her. She verbalized agreement of the treatment plan. She will be evaluated for further management. 2223: I discussed the patient's case with Dr. Scott, [facility] hospitalist. The patient will be evaluated for further management. Medical Decision Differential diagnoses considered include dehydration, food borne illness, viral illness, medication reaction, electrolyte imbalance, renal failure, anemia , UTI, bowel obstruction, pneumonia. There is no leukocytosis or concerning anemia. No kidney failure. Magnesium was low. There were some liver enzyme elevations, possibly consistent with her vomiting. No evidence for pancreatitis. Urinalysis showed hematuria but she is on her menstrual cycle. Dehydration was noticed also by UA. Obstruction series does not show pneumonia or bowel obstruction. testing was negative. The patient received IV Toradol, IV Zofran, IV Phenergan and IV Benadryl. She was given a DuoNeb. She received IV magnesium. She received 2 L of IV saline. The patient is still quite nauseated and feeling poorly. I do think a hospital stay is warranted. She is failing outpatient treatment. She is vomiting and cannot take her regular medications. At this point, the cause for the vomiting is unclear, it may be related to her pneumonia diagnosis, possibly the vomiting could be foodborne. She does have a history of nausea and pain with her menstrual cycles-the current menstrual cycle may be contributing. I spoke to the patient and case management. The on-call hospitalist was consulted. Medication Reconcilliation Current Medication List: was personally reviewed by me Blood Pressure Screening Patient's blood pressure: Elevated blood pressure Blood pressure disposition: Elevated BP felt to be situational Consults Time Called: 2219 Consulting Physician: Keven Leary hospitalist Returned Call: [phone] I discussed the patient's case with her. The patient will be evaluated for further management. Impression Primary Impression: Dehydration Additional Impressions: Nausea and vomiting Diffuse abdominal pain Pneumonia Scribe Attestation The scribe's documentation has been prepared under my direction and personally reviewed by me in its entirety. I confirm that the note above accurately reflects all work, treatment, procedures, and medical decision making performed by me. Departure Information Dispostion Being Evaluated By Hospitalist Referrals Logan Tsai, D.O. (PCP) Patient Instructions My [facility] Problem Qualifiers
[2017-07-03 20:12] LABS: BASO % 0.3 %; BASO ABS # 0.02 K/uL (0-0.2); HEMATOCRIT 41.2 % (37-47); HEMOGLOBIN 13.2 g/dL (12.0-16.0); IG# 0.03 K/uL (0.00-0.02); LYMPH % 16.9 %; LYMPH ABS # 1.31 K/uL (1.2-3.4); MEAN CELL VOLUME 79.7 fL (80-100); MEAN CORPUSCULAR HEMOGLOBIN 25.5 pg (25-34); MEAN PLATELET VOLUME 10.1 fL (7.4-10.4); MONO % 4.4 %; MONO ABS # 0.34 K/uL (0.11-0.59); NEUT ABS # 6.05 K/uL (1.4-6.5); PLATELET COUNT 401 K/uL (130-400); RED CELL DISTRIBUTION WIDTH CV 20.4 % (11.5-14.5); RED CELL DISTRIBUTION WIDTH SD 59.1 fL (36.4-46.3); WHITE BLOOD COUNT 7.75 K/uL (4.8-10.8)
[2017-07-03 20:56] LABS: ALBUMIN 3.9 gm/dl (3.4-5.0); ALT/SGPT 81 U/L (12-78)
[2017-07-03 20:56] LABS: INFLUENZA B ANTIGEN Neg for Influ B (NEG)
[2017-07-03 20:57] LABS: ALKALINE PHOSPHATASE 125 U/L (45-117); AST/SGOT 102 U/L (15-37); BLOOD UREA NITROGEN 6 mg/dl (7-18); CALCIUM 9.2 mg/dl (8.5-10.1); CARBON DIOXIDE 20 mmol/L (21-32); CREATININE 0.95 mg/dl (0.60-1.20); GLUCOSE 93 mg/dl (70-99); LIPASE 189 U/L (73-393); POTASSIUM 3.9 mmol/L (3.5-5.1); SODIUM 142 mmol/L (136-145); TOTAL PROTEIN 9.3 gm/dl (6.4-8.2)
--- NOTE | 2017-07-03 20:59 | DIAGNOSTIC IMAGING REPORT ---
ABDOMEN 2VIEW W/PA CHEST RTN CLINICAL HISTORY: pain, vomiting nausea COMPARISON STUDY: 05/31/2017 FINDINGS: The soft tissues, psoas shadows, renal outlines and intestinal gas pattern appear normal. There is no evidence for bowel obstruction. There is no evidence for free intraperitoneal air. No abnormal abdominal calcifications are seen. A frontal view of the chest was performed and is unremarkable. IMPRESSION: Normal study. The above report was generated using voice recognition software. It may contain grammatical, syntax or spelling errors. Electronically signed by: Toro Singh M.D. 07/03/2017 8:58 PM Dictated Date/Time: 07/03/2017 8:56 PM
[2017-07-03] MEDS ORDERED: MAGNESIUM SULFATE 1GM / D5W 1 GM BAG IV STA (21:06)
[2017-07-03] MEDS ORDERED: SODIUM CHLORIDE 0.9% 1000ML 1,000 ML IV SCH (23:45)
[2017-07-03] MEDS ORDERED: KETOROLAC TROMETHAMINE 30 MG/ML VIAL IV PRN (23:45)
[2017-07-03] MEDS ORDERED: PROMETHAZINE HCL 25 MG TAB PO PRN (23:45)
[2017-07-03] MEDS ORDERED: DICY10CA55 PO (23:52)
[2017-07-03] MEDS ORDERED: LVQ500 PO (23:52)
[2017-07-03] MEDS ORDERED: LORA10CA2 PO (23:52)
[2017-07-03] MEDS ORDERED: ALBU18002 INH (23:52)
[2017-07-03] MEDS ORDERED: OMEP20TA40 PO (23:52)
[2017-07-04] MEDS ORDERED: LORAZEPAM 0.5 MG TAB PO PRN
[2017-07-04] MEDS ORDERED: DICYCLOMINE HCL 10 MG CAP PO PRN
--- NOTE | 2017-07-04 00:17 | History and Physical ---
History & Physical Date & Time of Service: Jul 03, 2017 at 23:53 Chief Complaint: Cough Related To Pneumonia, Shaniness,Vomiting Primary Care Physician: Logan Tsai D.OSybil History of Present Illness Source: patient, clinic records, hospital records 27 yo F with recent h/o pneumonia still on Levaquin for a 10 day treatment presents with fevers, chills, nausea and vomiting all day today with inability to tolerate PO. She reports coughing and has had some post-tussive emesis. She admits to body aches, headache, back pains and abdominal pain that is generalized. She denies shortness of breath or chest pain and is not in respiratory distress. CXR was clear of pneumonia and AXR did not reveal any obstruction or other overt abdominal pathology. She denies any diarrhea. She kavya any h/o asthma or lung disease. She has had no known sick contacts. Past Medical/Surgical History Medical Problems: (1) Abdominal pain Status: Chronic (2) Abnormal vaginal bleeding Status: Resolved (3) Depression Status: Chronic (4) Hepatic steatosis Status: Chronic (5) Morbid obesity Status: Chronic (6) Pancreatitis Status: Chronic (7) Uterine fibroid Status: Resolved (8) Uterine fibroid Status: Chronic Surgical Problems: (1) H/O esophagogastroduodenoscopy Permanent Comment: August 2016-esophagitis and gastritis; October 11, 2016- normal Status: Chronic (2) History of esophagogastroduodenoscopy (EGD) Permanent Comment: 09/01/16- - [place] Grade B reflux esophagitis Status: Chronic (3) S/P cholecystectomy Status: Chronic Family History Diabetes mellitus FATHER FH: kidney failure FATHER FH: rheumatoid arthritis MOTHER FHx: pancreatic disease Uncle (Uncle from pancreatitis) Heart disease FATHER Social History Smoking Status: Never Smoker Smokeless Tobacco Use: No Alcohol Use: socially Drug Use: none Marital Status: single, in relationship Housing status: lives alone 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 Immunizations History of Influenza Vaccine: No History of Tetanus Vaccine?: No History of Pneumococcal: No History of Hepatitis B Vaccine: No Multi-Drug Resistant Organisms History of MDRO: No Allergies Coded Allergies: Pantoprazole (Verified Allergy, Intermediate, "ITCHY ALL OVER", 05/31/17) Ondansetron (Verified Allergy, Unknown, lip tingling, 05/31/17) Morphine (Verified Adverse Reaction, Intermediate, ITCHINESS, 05/31/17) Home Medications Scheduled Levofloxacin (Levofloxacin), 500 MG PO DAILY Loratadine (Claritin), 1 CAP PO DAILY Omeprazole (Cvs Omeprazole), 40 MG PO BID Scheduled PRN Albuterol Sulfate (Proair Respiclick), 2 PUFF INH QID PRN for wheezing Dicyclomine Hcl (Bentyl), 10 MG PO DAILY PRN for ABD PAIN Dicyclomine Hcl (Bentyl), 1 CAP PO BID PRN for abdominal cramping Lorazepam (Lorazepam), 1 TAB PO TID PRN for Anxiety Promethazine Hcl (Phenergan), 25 MG PO Q4H PRN for Nausea Review of Systems At least ten systems were reviewed and negative except as indicated in HPi above. Physical Exam Vital Signs Date Time Temp Pulse Resp B/P (MAP) Pulse Ox O2 Delivery O2 Flow Rate FiO2 07/03/17 23:46 36.6 105 20 144/77 99 07/03/17 22:01 105 125/57 99 Room Air 07/03/17 21:11 108 07/03/17 21:07 108 21 164/98 100 Room Air 07/03/17 20:18 97 22 164/119 100 Room Air 07/03/17 17:51 36.6 118 19 131/105 97 Room Air General Appearance: no apparent distress, + obese, + pertinent finding (very jumpy any time i touched her during the exam ) Head: normocephalic, atraumatic Eyes: normal inspection, PERRL, sclerae normal ENT: hearing grossly normal, pharynx normal Neck: supple, no adenopathy, no JVD, + pertinent finding (pain with palpation of submandibular area. ) Respiratory/Chest: lungs clear, normal breath sounds, no respiratory distress, no accessory muscle use, + pertinent finding (TTP of anterior chest) Cardiovascular: regular rate, rhythm, no edema, no gallop, no JVD, no murmur, normal peripheral pulses Abdomen/GI: normal bowel sounds, soft, + tenderness (generalized, voluntary guarding present) Extremities/Musculoskelatal: normal inspection, no pedal edema Neurologic/Psych: network architect II-XII nml as tested, no motor/sensory deficits, alert, normal mood/affect, oriented x 3 Skin: normal color, warm/dry Diagnostics Laboratory Results 07/03/17 19:55 Red Blood Count 5.17, Mean Corpuscular Volume 79.7, Mean Corpuscular Hemoglobin 25.5, Mean Corpuscular Hemoglobin Concent 32.0, Mean Platelet Volume 10.1, Neutrophils (%) (Auto) 78.0, Lymphocytes (%) (Auto) 16.9, Monocytes (%) (Auto) 4.4, Eosinophils (%) (Auto) 0.0, Basophils (%) (Auto) 0.3, Neutrophils # (Auto) 6.05, Lymphocytes # (Auto) 1.31, Monocytes # (Auto) 0.34, Eosinophils # (Auto) 0.00, Basophils # (Auto) 0.02 07/03/17 19:55 Test 07/03/17 19:55 07/03/17 20:17 07/03/17 20:20 07/03/17 20:56 White Blood Count 7.75 K/uL (4.8-10.8) Red Blood Count 5.17 M/uL (4.2-5.4) Hemoglobin 13.2 g/dL (12.0-16.0) Hematocrit 41.2 % (37-47) Mean Corpuscular Volume 79.7 fL (80-100) Mean Corpuscular Hemoglobin 25.5 pg (25-34) Mean Corpuscular Hemoglobin Concent 32.0 g/dl (32-36) Platelet Count 401 K/uL (130-400) Mean Platelet Volume 10.1 fL (7.4-10.4) Neutrophils (%) (Auto) 78.0 % Lymphocytes (%) (Auto) 16.9 % Monocytes (%) (Auto) 4.4 % Eosinophils (%) (Auto) 0.0 % Basophils (%) (Auto) 0.3 % Neutrophils # (Auto) 6.05 K/uL (1.4-6.5) Lymphocytes # (Auto) 1.31 K/uL (1.2-3.4) Monocytes # (Auto) 0.34 K/uL (0.11-0.59) Eosinophils # (Auto) 0.00 K/uL (0-0.5) Basophils # (Auto) 0.02 K/uL (0-0.2) RDW Standard Deviation 59.1 fL (36.4-46.3) RDW Coefficient of Variation 20.4 % (11.5-14.5) Immature Granulocyte % (Auto) 0.4 % Immature Granulocyte # (Auto) 0.03 K/uL (0.00-0.02) Giant Platelets 1+ Hypochromasia PRESENT Anisocytosis PRESENT Microcytosis PRESENT Anion Gap 18.0 mmol/L (3-11) Estimated GFR () 93.8 Estimated GFR (Non- 80.9 BUN/Creatinine Ratio 6.7 (10-20) Calcium Level 9.2 mg/dl (8.5-10.1) Magnesium Level 1.6 mg/dl (1.8-2.4) Total Bilirubin 0.8 mg/dl (0.2-1) Aspartate Amino Transf (AST/SGOT) 102 U/L (15-37) Alanine Aminotransferase (ALT/SGPT) 81 U/L (12-78) Alkaline Phosphatase 125 U/L (45-117) Total Protein 9.3 gm/dl (6.4-8.2) Albumin 3.9 gm/dl (3.4-5.0) Globulin 5.4 gm/dl (2.5-4.0) Albumin/Globulin Ratio 0.7 (0.9-2) Lipase 189 U/L (73-393) Human Chorionic Gonadotropin, Qual NEG (NEG) Influenza Type A Antigen Neg for Influ A (NEG) Influenza Type B Antigen Neg for Influ B (NEG) Urine Color DK YELLOW Urine Appearance CLEAR (CLEAR) Urine pH 6.0 (4.5-7.5) Urine Specific [place] 1.034 (1.000-1.030) Urine Protein 3+ (NEG) Urine Glucose (UA) NEG (NEG) Urine Ketones 4+ (NEG) Urine Occult Blood 3+ (NEG) Urine Nitrite NEG (NEG) Urine Bilirubin NEG (NEG) Urine Urobilinogen NEG (NEG) Urine Leukocyte Esterase TRACE (NEG) Urine WBC (Auto) 10-30 /hpf (0-5) Urine RBC (Auto) >30 /hpf (0-4) Urine Hyaline Casts (Auto) 0 /lpf (0-5) Urine Epithelial Cells (Auto) >30 /lpf (0-5) Urine Bacteria (Auto) NEG (NEG) Urine Pathogenic Casts /lpf (0) Date/Time Source Procedure Growth Status 07/03/17 20:56 Urine , Clean Catch Urine Culture Pending Received Results Past 24 Hours Test 07/03/17 19:55 07/03/17 20:17 07/03/17 20:20 07/03/17 20:56 Range/Units White Blood Count 7.75 4.8-10.8 K/uL Red Blood Count 5.17 4.2-5.4 M/uL Hemoglobin 13.2 12.0-16.0 g/dL Hematocrit 41.2 37-47 % Mean Corpuscular Volume 79.7 80-100 fL Mean Corpuscular Hemoglobin 25.5 25-34 pg Mean Corpuscular Hemoglobin Concent 32.0 32-36 g/dl Platelet Count 401 130-400 K/uL Mean Platelet Volume 10.1 7.4-10.4 fL Neutrophils (%) (Auto) 78.0 % Lymphocytes (%) (Auto) 16.9 % Monocytes (%) (Auto) 4.4 % Eosinophils (%) (Auto) 0.0 % Basophils (%) (Auto) 0.3 % Neutrophils # (Auto) 6.05 1.4-6.5 K/uL Lymphocytes # (Auto) 1.31 1.2-3.4 K/uL Monocytes # (Auto) 0.34 0.11-0.59 K/uL Eosinophils # (Auto) 0.00 0-0.5 K/uL Basophils # (Auto) 0.02 0-0.2 K/uL RDW Standard Deviation 59.1 36.4-46.3 fL RDW Coefficient of Variation 20.4 11.5-14.5 % Immature Granulocyte % (Auto) 0.4 % Immature Granulocyte # (Auto) 0.03 0.00-0.02 K/uL Giant Platelets 1+ Hypochromasia PRESENT Anisocytosis PRESENT Microcytosis PRESENT Sodium Level 142 136-145 mmol/L Potassium Level 3.9 3.5-5.1 mmol/L Chloride Level 104 98-107 mmol/L Carbon Dioxide Level 20 21-32 mmol/L Anion Gap 18.0 3-11 mmol/L Blood Urea Nitrogen 6 7-18 mg/dl Creatinine 0.95 0.60-1.20 mg/dl Estimated GFR () 93.8 Estimated GFR (Non- 80.9 BUN/Creatinine Ratio 6.7 10-20 Random Glucose 93 70-99 mg/dl Calcium Level 9.2 8.5-10.1 mg/dl Magnesium Level 1.6 1.8-2.4 mg/dl Total Bilirubin 0.8 0.2-1 mg/dl Aspartate Amino Transf (AST/SGOT) 102 15-37 U/L Alanine Aminotransferase (ALT/SGPT) 81 12-78 U/L Alkaline Phosphatase 125 45-117 U/L Total Protein 9.3 6.4-8.2 gm/dl Albumin 3.9 3.4-5.0 gm/dl Globulin 5.4 2.5-4.0 gm/dl Albumin/Globulin Ratio 0.7 0.9-2 Lipase 189 73-393 U/L Human Chorionic Gonadotropin, Qual NEG NEG Influenza Type A Antigen Neg for Influ A NEG Influenza Type B Antigen Neg for Influ B NEG Urine Color DK YELLOW Urine Appearance CLEAR CLEAR Urine pH 6.0 4.5-7.5 Urine Specific [place] 1.034 1.000-1.030 Urine Protein 3+ NEG Urine Glucose (UA) NEG NEG Urine Ketones 4+ NEG Urine Occult Blood 3+ NEG Urine Nitrite NEG NEG Urine Bilirubin NEG NEG Urine Urobilinogen NEG NEG Urine Leukocyte Esterase TRACE NEG Urine WBC (Auto) 10-30 0-5 /hpf Urine RBC (Auto) >30 0-4 /hpf Urine Hyaline Casts (Auto) 0 0-5 /lpf Urine Epithelial Cells (Auto) >30 0-5 /lpf Urine Bacteria (Auto) NEG NEG Urine Pathogenic Casts 0 /lpf Microbiology Results 07/03/17 Urine Culture, Received Pending Diagnostic Radiology ABDOMEN 2VIEW W/PA CHEST RTN CLINICAL HISTORY: pain, vomiting nausea COMPARISON STUDY: 05/31/2017 FINDINGS: The soft tissues, psoas shadows, renal outlines and intestinal gas pattern appear normal. There is no evidence for bowel obstruction. There is no evidence for free intraperitoneal air. No abnormal abdominal calcifications are seen. A frontal view of the chest was performed and is unremarkable. IMPRESSION: Normal study. Impression Assessment and Plan 27 yo F with h/o recurrent pancreatitis presents with nausea and vomiting after 5 days of treatment for pneumonia and is intolerant to PO. 1. CAP-on treatment with Levaquin, cont for remainder of course. No infiltrates seen on CXR in ER. Coughing likely related to this. Rule out flu. Toradol for generalized pain 2. Nausea and vomiting-intolerant to PO. Cont supportive care with IVF and antiemetics. Clear diet, advance as tolerated. Of note, this is a typical reaction for her-she gets into cycles of vomiting 2-3 times monthly. She also reports that her aunt just this week and this has caused her significant stress, which may be playing a role. 3. Abdominal pain-likely related to coughing. Has a h/o chronic abdominal pain in the past. Xray is not acute. Cont CT if worsens. 4. Obesity DVT proph-SCDs/ambulation Full Code Dispo-to floor. Goldie Scott, DO [facility] VTE Prophylaxis VTE Risk Assessment Done? Y/N: Yes Risk Level: Moderate Given or contraindicated: Treatment not indicated
[2017-07-04] MEDS ORDERED: PATIENT'S HEIGHT AND/OR WEIGHT NEEDED SCH (00:30)
[2017-07-04 01:06] VITALS: BP 153/88; PULSE 106; TEMP 37.4; O2SAT 95
[2017-07-04 01:11] VITALS: BMI 49.2
[2017-07-04 02:10] VITALS: BP 153/88; PULSE 106; TEMP 37.4; O2SAT 97; Ht 167.6 cm; Wt 138.2 kg
[2017-07-04] MEDS: ACETAMINOPHEN 325 MG TAB PO PRN ×3 (02:21→23:30)
[2017-07-04 06:52] VITALS: BP 140/89; PULSE 85; TEMP 37.1; O2SAT 97
[2017-07-04 08:00] VITALS: O2SAT 97
[2017-07-04 08:26] LABS: BASO % 0.2 %; BASO ABS # 0.01 K/uL (0-0.2); EOS % 0.2 %; EOS ABS # 0.01 K/uL (0-0.5); HEMATOCRIT 32.6 % (37-47); HEMOGLOBIN 10.4 g/dL (12.0-16.0); IG# 0.02 K/uL (0.00-0.02); LYMPH % 39.2 %; LYMPH ABS # 1.76 K/uL (1.2-3.4); MEAN CELL VOLUME 79.9 fL (80-100); MEAN CORPUSCULAR HEMOGLOBIN 25.5 pg (25-34); MEAN CORPUSCULAR HGB CONC 31.9 g/dl (32-36); MEAN PLATELET VOLUME 9.9 fL (7.4-10.4); MONO % 9.1 %; MONO ABS # 0.41 K/uL (0.11-0.59); NEUT % 50.9 %; NEUT ABS # 2.28 K/uL (1.4-6.5); PLATELET COUNT 315 K/uL (130-400); RED CELL DISTRIBUTION WIDTH CV 20.4 % (11.5-14.5); RED CELL DISTRIBUTION WIDTH SD 59.2 fL (36.4-46.3); WHITE BLOOD COUNT 4.49 K/uL (4.8-10.8)
[2017-07-04 08:57] LABS: CALCIUM 8.4 mg/dl (8.5-10.1); CREATININE 0.77 mg/dl (0.60-1.20)
[2017-07-04] MEDS: LEVOFLOXACIN 500 MG TAB PO SCH (08:57)
[2017-07-04 09:25] LABS: POTASSIUM 3.1 mmol/L (3.5-5.1)
[2017-07-04] MEDS ORDERED: CETIRIZINE HCL 10 MG TAB PO PRN (11:30)
[2017-07-04] MEDS ORDERED: CETIRIZINE HCL 10 MG TAB PO ONE (11:35)
[2017-07-04] MEDS ORDERED: POTASSIUM CHLORIDE 20 MEQ TABCR PO ONE (11:35)
--- NOTE | 2017-07-04 11:36 | Progress Note ---
Medicine Progress Note Date & Time of Visit: Jul 04, 2017 at 11:19. Subjective seen with RN at bedside comfortable not in distress states she feels somewhat improved compared to yesterday nausea somewhat improved has some upper quadrant pain, also report burning with urination, no fever/ chills reports generalized itching since last night, bendaryl helped some, denies dyspnea, throat swelling denies other symptoms Objective Last 8 Hrs Date Time Temp Pulse Resp B/P (MAP) Pulse Ox O2 Delivery O2 Flow Rate FiO2 07/04/17 06:52 37.1 85 18 140/89 (106) 97 Room Air Physical Exam: General- oriented x 3, not in distress, speaks in sentences with no effort Head- atraumatic Eyes- PERRL, EOMI, anicteric ENT- oropharynx clear Neck- supple, no JVD, no adenopathy, no thyromegaly Lungs- clear breath sounds bilaterally Heart- regular rhythm; no murmur, normal rate Abdomen- normal bowel sounds, soft, nontender Extremities- no pretibial edema, no calf tenderness; peripheral pulses intact Neuro- alert, oriented x 3; no gross focal deficits Skin- warm & dry Laboratory Results: Last 24 Hours Test 07/03/17 19:55 07/03/17 20:17 07/03/17 20:20 07/03/17 20:56 White Blood Count 7.75 K/uL Red Blood Count 5.17 M/uL Hemoglobin 13.2 g/dL Hematocrit 41.2 % Mean Corpuscular Volume 79.7 fL Mean Corpuscular Hemoglobin 25.5 pg Mean Corpuscular Hemoglobin Concent 32.0 g/dl Platelet Count 401 K/uL Mean Platelet Volume 10.1 fL Neutrophils (%) (Auto) 78.0 % Lymphocytes (%) (Auto) 16.9 % Monocytes (%) (Auto) 4.4 % Eosinophils (%) (Auto) 0.0 % Basophils (%) (Auto) 0.3 % Neutrophils # (Auto) 6.05 K/uL Lymphocytes # (Auto) 1.31 K/uL Monocytes # (Auto) 0.34 K/uL Eosinophils # (Auto) 0.00 K/uL Basophils # (Auto) 0.02 K/uL RDW Standard Deviation 59.1 fL RDW Coefficient of Variation 20.4 % Immature Granulocyte % (Auto) 0.4 % Immature Granulocyte # (Auto) 0.03 K/uL Giant Platelets 1+ Hypochromasia PRESENT Anisocytosis PRESENT Microcytosis PRESENT Sodium Level 142 mmol/L Potassium Level 3.9 mmol/L Chloride Level 104 mmol/L Carbon Dioxide Level 20 mmol/L Anion Gap 18.0 mmol/L Blood Urea Nitrogen 6 mg/dl Creatinine 0.95 mg/dl Estimated GFR () 93.8 Estimated GFR (Non- 80.9 BUN/Creatinine Ratio 6.7 Random Glucose 93 mg/dl Calcium Level 9.2 mg/dl Magnesium Level 1.6 mg/dl Total Bilirubin 0.8 mg/dl Aspartate Amino Transf (AST/SGOT) 102 U/L Alanine Aminotransferase (ALT/SGPT) 81 U/L Alkaline Phosphatase 125 U/L Total Protein 9.3 gm/dl Albumin 3.9 gm/dl Globulin 5.4 gm/dl Albumin/Globulin Ratio 0.7 Lipase 189 U/L Human Chorionic Gonadotropin, Qual NEG Influenza Type A Antigen Neg for Influ A Influenza Type B Antigen Neg for Influ B Urine Color DK YELLOW Urine Appearance CLEAR Urine pH 6.0 Urine Specific [place] 1.034 Urine Protein 3+ Urine Glucose (UA) NEG Urine Ketones 4+ Urine Occult Blood 3+ Urine Nitrite NEG Urine Bilirubin NEG Urine Urobilinogen NEG Urine Leukocyte Esterase TRACE Urine WBC (Auto) 10-30 /hpf Urine RBC (Auto) >30 /hpf Urine Hyaline Casts (Auto) 0 /lpf Urine Epithelial Cells (Auto) >30 /lpf Urine Bacteria (Auto) NEG Urine Pathogenic Casts /lpf Test 07/04/17 06:52 07/04/17 08:14 White Blood Count 4.49 K/uL Red Blood Count 4.08 M/uL Hemoglobin 10.4 g/dL Hematocrit 32.6 % Mean Corpuscular Volume 79.9 fL Mean Corpuscular Hemoglobin 25.5 pg Mean Corpuscular Hemoglobin Concent 31.9 g/dl Platelet Count 315 K/uL Mean Platelet Volume 9.9 fL Neutrophils (%) (Auto) 50.9 % Lymphocytes (%) (Auto) 39.2 % Monocytes (%) (Auto) 9.1 % Eosinophils (%) (Auto) 0.2 % Basophils (%) (Auto) 0.2 % Neutrophils # (Auto) 2.28 K/uL Lymphocytes # (Auto) 1.76 K/uL Monocytes # (Auto) 0.41 K/uL Eosinophils # (Auto) 0.01 K/uL Basophils # (Auto) 0.01 K/uL RDW Standard Deviation 59.2 fL RDW Coefficient of Variation 20.4 % Immature Granulocyte % (Auto) 0.4 % Immature Granulocyte # (Auto) 0.02 K/uL Giant Platelets 1+ Hypochromasia PRESENT Anisocytosis PRESENT Sodium Level 138 mmol/L Potassium Level 3.1 mmol/L Chloride Level 105 mmol/L Carbon Dioxide Level 22 mmol/L Anion Gap 11.0 mmol/L Blood Urea Nitrogen 5 mg/dl Creatinine 0.77 mg/dl Est Creatinine Clear Calc Drug Dose 154.6 ml/min Estimated GFR () 120.9 Estimated GFR (Non- 104.3 BUN/Creatinine Ratio 6.6 Random Glucose 92 mg/dl Calcium Level 8.4 mg/dl Magnesium Level 2.3 mg/dl Date/Time Source Procedure Growth Status 07/03/17 20:56 Urine , Clean Catch Urine Culture Pending Received Assessment & Plan 27 yo F with h/o recurrent pancreatitis presents with nausea and vomiting after 5 days of treatment for pneumonia and is intolerant to PO. 1. CAP - CXR no pneumonia Flu PCR pending - symptoms improving - continue Levaquin day 6/ 2. Nausea and vomiting - patient reports having nausea/vomiting episodes 1-2x/month - PRN antiemetics consult GI - screen for UTI 3. Abdominal pain -? from coughing. Has a h/o chronic abdominal pain in the past. - Abdominal xray: no acute process - GI consulted screen for UTI 4. Pruritus - medications given so far reviewed - from Toradol? d/c Toradol Cetirizine po PRN 5. Hypokalemia - from vomiting - replace and monitor DVT proph-SCDs/ambulation Full Code Dispo: anticipate d/c home in 1-2 days Current Inpatient Medications: Current Inpatient Medications Medications (Trade) Dose Ordered Sig/Marlin Route Start Time Stop Time Status Last Admin Dose Admin Acetaminophen (Tylenol Tab) 650 mg Q4H PRN PO 07/03/17 23:45 08/02/17 23:44 07/04/17 02:21 650 MG Ketorolac Tromethamine (Toradol Inj) 30 mg Q6H PRN IV 07/03/17 23:45 2/16/18 23:44 Promethazine HCl (Phenergan Tab) 25 mg Q6H PRN PO 07/03/17 23:45 08/02/17 23:44 07/04/17 08:55 25 MG Dicyclomine HCl (Bentyl Cap) 10 mg BID PRN PO 07/04/17 00:00 08/03/17 00:00 Levofloxacin (Levaquin Tab) 500 mg DAILY PO 07/04/17 09:00 07/11/17 08:59 07/04/17 08:57 500 MG Lorazepam (Ativan Tab) 0.5 mg TID PRN PO 07/04/17 00:00 08/03/17 00:00
--- NOTE | 2017-07-04 12:42 | Gastrointestinal Consultation ---
Gastrointestinal Consultation Date of Consultation: Jul 04, 2017 Attending Physician: Dr. Beckham Consulting Physician: Dr. Lai Reason for Consultation: Nausea, vomiting, abdominal pain (persistent) History of Present Illness Patient is a 27 year old female patient of Dr. 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 GI is consulted today as her symptoms have persisted. Symptoms began on Tuesday with loose, mucousy BMs. On Tuesday morning, soon after wakening, she began with nausea and vomiting then within an hour, diffuse abdominal pain began. Yesterday, she vomited > 10 times and passed about 5 loose stools. Today, with Phenergan, she has not vomiting though she still has nausea. She has not passed a BM today. Her abdominal pain continues, is diffuse, sometimes moderately severe, but is improved compared to yesterday. She also started menstruating yesterday and feels that some of her abdominal pain may be contributed to menstruation. On arrival, lipase 189, AST 102, Alk Phos 125. She has chronic transaminase elevation x about 6 months and these levels are slightly higher than her baseline. CXR w/o pneumonia. Prior work up for abdominal pain includes: EUS on 04/21/[address] Lai: Normal ampulla. - Evidence of a cholecystectomy. - 6 mm common bile duct. - Normal left lobe of the liver. - Normal pancreas. - Normal left adrenal gland. ERCP by Dr. Young on 04/21/17: - The major papilla appeared normal. - Biliary papillary stenosis, benign. - The patient has had a cholecystectomy. 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 - The biliary tree was swept and a small amount of debris was found. - Indomethacin given to decrease risk of post-ERCP pancreatitis. EGD in September 2016: normal. Past Medical/Surgical History Medical Problems: (1) Dehydration Status: Acute (2) Dehydration Status: Acute (3) Dehydration Status: Acute (4) Diffuse abdominal pain Status: Acute (5) Double vision Status: Acute (6) Headache Status: Acute (7) Intractable abdominal pain Status: Acute (8) Intractable abdominal pain Status: Acute (9) Intractable nausea and vomiting Status: Acute (10) Pancreatic mass Status: Acute (11) Pancreatitis Status: Acute (12) Pancreatitis Status: Acute (13) Pancreatitis Status: Chronic (14) Pneumonia Status: Acute (15) Syncope Status: Acute (16) UTI (urinary tract infection) Status: Acute Surgical Problems: (1) History of esophagogastroduodenoscopy (EGD) Permanent Comment: 09/01/16- - LA Grade B reflux esophagitis Status: Chronic Past Medical History: 1. Depression 2. Sphincter of Oddi disorder 3. Acute pancreatitis Past Surgical History: 1. EGD 2. EUS 3. ERCP 4. Lap cholecystectomy Family History Diabetes mellitus FATHER FH: kidney failure FATHER FH: rheumatoid arthritis MOTHER FHx: pancreatic disease Uncle (Uncle from pancreatitis) Heart disease FATHER Social History Smoking Status: Never Smoker Alcohol Use: occasionally Drug Use: none Marital Status: single, in relationship Housing Status: lives alone 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 Allergies Coded Allergies: Pantoprazole (Verified Allergy, Intermediate, "ITCHY ALL OVER", 05/31/17) Ketorolac Tromethamine (Verified Allergy, Mild, pruritus, 07/04/17) Ondansetron (Verified Allergy, Unknown, lip tingling, 05/31/17) Morphine (Verified Adverse Reaction, Intermediate, ITCHINESS, 05/31/17) Current Medications Home Meds and Scripts Medications Dose Route/Sig Max Daily Dose Days Date Category Claritin (Loratadine) 10 Mg Cap 1 Cap PO DAILY 30 07/03/17 Reported Proair Respiclick (Albuterol Sulfate) 108 Mcg/Act Aer 2 Puff INH QID PRN 07/03/17 Reported Bentyl (Dicyclomine Hcl) 10 Mg Cap 1 Cap PO BID PRN 30 07/03/17 Reported Levofloxacin 500 Mg Tab 500 Mg PO DAILY 07/03/17 [address] [facility] Omeprazole (Omeprazole) 20 Mg Tab 40 Mg PO BID 07/03/17 Reported Phenergan (Promethazine HCl) 25 Mg Tab 25 Mg PO Q4H PRN 04/30/17 Reported Bentyl (Dicyclomine Hcl) 10 Mg Cap 10 Mg PO DAILY PRN 03/01/17 Reported Lorazepam 0.5 Mg Tab 1 Tab PO TID PRN 30 01/18/17 Reported Review of Systems Constitutional: No fever, No chills, No sweats, No weight loss, No weakness Eyes: No eye pain, No redness ENT: No sore throat, No trouble swallowing, No pain on swallowing Respiratory: No cough, No wheezing, No shortness of breath, No dyspnea on exertion Cardiac: No chest pain, No edema, No palpitations Abdomen: + see HPI, + pain, + nausea, + vomiting, + diarrhea Neuro: No memory loss, No weakness, No numbness/tingling, No vertigo, No balance problems Psych: No depression symptoms, No anxiety, No insomnia Heme: No abnormal bleeding/bruising, No night sweats Endo: No excessive thirst, No excessive urination Skin: No rash, No itch, No new/changing skin lesions, No jaundice Physical Exam Date Time Temp Pulse Resp B/P (MAP) Pulse Ox O2 Delivery O2 Flow Rate FiO2 07/04/17 06:52 37.1 85 18 140/89 (106) 97 Room Air 07/04/17 02:10 37.4 106 18 153/88 97 Room Air 07/04/17 01:06 37.4 106 18 153/88 (109) 95 Room Air 07/03/17 23:46 36.6 105 20 144/77 99 07/03/17 22:01 105 125/57 99 Room Air 07/03/17 21:11 108 07/03/17 21:07 108 21 164/98 100 Room Air 07/03/17 20:18 97 22 164/119 100 Room Air 07/03/17 17:51 36.6 118 19 131/105 97 Room Air General Appearance: no apparent distress Eyes: normal inspection, EOMI Neck: supple, no adenopathy, thyroid normal Respiratory/Chest: chest non-tender, lungs clear, normal breath sounds, no accessory muscle use Cardiovascular: regular rate, rhythm, no JVD, no murmur Abdomen: normal bowel sounds, soft, no organomegaly, + tenderness (moderate tenderness over the entire abdomen) Extremities: normal inspection, no pedal edema, normal capillary refill Neurologic/Psych: alert, normal mood/affect, oriented x 3 Skin: normal color, no jaundice, warm/dry, no rash Laboratory Results Last 24 Hours Test 07/03/17 19:55 07/03/17 20:17 07/03/17 20:20 07/03/17 20:56 White Blood Count 7.75 K/uL Red Blood Count 5.17 M/uL Hemoglobin 13.2 g/dL Hematocrit 41.2 % Mean Corpuscular Volume 79.7 fL Mean Corpuscular Hemoglobin 25.5 pg Mean Corpuscular Hemoglobin Concent 32.0 g/dl Platelet Count 401 K/uL Mean Platelet Volume 10.1 fL Neutrophils (%) (Auto) 78.0 % Lymphocytes (%) (Auto) 16.9 % Monocytes (%) (Auto) 4.4 % Eosinophils (%) (Auto) 0.0 % Basophils (%) (Auto) 0.3 % Neutrophils # (Auto) 6.05 K/uL Lymphocytes # (Auto) 1.31 K/uL Monocytes # (Auto) 0.34 K/uL Eosinophils # (Auto) 0.00 K/uL Basophils # (Auto) 0.02 K/uL RDW Standard Deviation 59.1 fL RDW Coefficient of Variation 20.4 % Immature Granulocyte % (Auto) 0.4 % Immature Granulocyte # (Auto) 0.03 K/uL Giant Platelets 1+ Hypochromasia PRESENT Anisocytosis PRESENT Microcytosis PRESENT Sodium Level 142 mmol/L Potassium Level 3.9 mmol/L Chloride Level 104 mmol/L Carbon Dioxide Level 20 mmol/L Anion Gap 18.0 mmol/L Blood Urea Nitrogen 6 mg/dl Creatinine 0.95 mg/dl Estimated GFR () 93.8 Estimated GFR (Non- 80.9 BUN/Creatinine Ratio 6.7 Random Glucose 93 mg/dl Calcium Level 9.2 mg/dl Magnesium Level 1.6 mg/dl Total Bilirubin 0.8 mg/dl Aspartate Amino Transf (AST/SGOT) 102 U/L Alanine Aminotransferase (ALT/SGPT) 81 U/L Alkaline Phosphatase 125 U/L Total Protein 9.3 gm/dl Albumin 3.9 gm/dl Globulin 5.4 gm/dl Albumin/Globulin Ratio 0.7 Lipase 189 U/L Human Chorionic Gonadotropin, Qual NEG Influenza Type A Antigen Neg for Influ A Influenza Type B Antigen Neg for Influ B Urine Color DK YELLOW Urine Appearance CLEAR Urine pH 6.0 Urine Specific [place] 1.034 Urine Protein 3+ Urine Glucose (UA) NEG Urine Ketones 4+ Urine Occult Blood 3+ Urine Nitrite NEG Urine Bilirubin NEG Urine Urobilinogen NEG Urine Leukocyte Esterase TRACE Urine WBC (Auto) 10-30 /hpf Urine RBC (Auto) >30 /hpf Urine Hyaline Casts (Auto) 0 /lpf Urine Epithelial Cells (Auto) >30 /lpf Urine Bacteria (Auto) NEG Urine Pathogenic Casts /lpf Test 07/04/17 06:52 07/04/17 08:14 White Blood Count 4.49 K/uL Red Blood Count 4.08 M/uL Hemoglobin 10.4 g/dL Hematocrit 32.6 % Mean Corpuscular Volume 79.9 fL Mean Corpuscular Hemoglobin 25.5 pg Mean Corpuscular Hemoglobin Concent 31.9 g/dl Platelet Count 315 K/uL Mean Platelet Volume 9.9 fL Neutrophils (%) (Auto) 50.9 % Lymphocytes (%) (Auto) 39.2 % Monocytes (%) (Auto) 9.1 % Eosinophils (%) (Auto) 0.2 % Basophils (%) (Auto) 0.2 % Neutrophils # (Auto) 2.28 K/uL Lymphocytes # (Auto) 1.76 K/uL Monocytes # (Auto) 0.41 K/uL Eosinophils # (Auto) 0.01 K/uL Basophils # (Auto) 0.01 K/uL RDW Standard Deviation 59.2 fL RDW Coefficient of Variation 20.4 % Immature Granulocyte % (Auto) 0.4 % Immature Granulocyte # (Auto) 0.02 K/uL Giant Platelets 1+ Hypochromasia PRESENT Anisocytosis PRESENT Sodium Level 138 mmol/L Potassium Level 3.1 mmol/L Chloride Level 105 mmol/L Carbon Dioxide Level 22 mmol/L Anion Gap 11.0 mmol/L Blood Urea Nitrogen 5 mg/dl Creatinine 0.77 mg/dl Est Creatinine Clear Calc Drug Dose 154.6 ml/min Estimated GFR () 120.9 Estimated GFR (Non- 104.3 BUN/Creatinine Ratio 6.6 Random Glucose 92 mg/dl Calcium Level 8.4 mg/dl Magnesium Level 2.3 mg/dl Impression Patient is a 27 year old female patient with nausea, vomiting, diarrhea, all improving but not resolved. Her transaminases are elevated but this is chronic. The additional bump in the transaminases may be from Levaquin for pneumonia. This is likely viral gastroenteritis as this occurring frequently in the local population in the past few weeks. Plan 1. Continue clear liquids. 2. Agree with antiemetics 3. If symptoms persist then would offer EGD and would consider CT abd/pelvis. However, she has had several CTs in the past year, and she underwent EGD in the past year as well, so would defer if her symptoms improve. I have seen , examined and agree with the plan as outlined by RITA Montes as above. -Exam reveals soft abd -Presentation seems consistent with gastroenteritis -Conservative care if fails to improve, consider EGD and or imaging.
[2017-07-04 14:52] VITALS: BP_SYST 153; BP_SYST 154; BP_DIAS 100; BP_DIAS 101; PULSE 86; TEMP 37.1; O2SAT 98
[2017-07-04 16:00] VITALS: O2SAT 97
[2017-07-04 18:29] LABS: INFLUENZA A PCR Neg for Influ A (NEG); INFLUENZA B PCR Neg for Influ B (NEG)
[2017-07-04] MEDS ORDERED: OPTIRAY 320 IV PRN (19:00)
[2017-07-04] MEDS ORDERED: TRAMADOL HCL 50 MG TAB PO PRN (19:15)
--- NOTE | 2017-07-04 20:35 | DIAGNOSTIC IMAGING REPORT ---
ABDOMEN AND PELVIS CT WITH IV CONTRAST CT DOSE: 1795.56 mGy.cm HISTORY: Acute generalized abdominal pain abdominal pain TECHNIQUE: Multiaxial CT images of the abdomen and pelvis were performed following the use of intravenous contrast. A dose lowering technique was utilized adhering to the principles of ALARA. COMPARISON STUDY: CT abdomen and pelvis 01/18/2017. FINDINGS: Patchy centrilobular groundglass and consolidative opacities of the basal left lower lobe are partially imaged. Lung bases are otherwise clear. No pneumatosis or pneumoperitoneum. Imaged inferior cardiac chambers are unremarkable. Prior cholecystectomy. Hepatomegaly with hepatic steatosis. 1.1 cm fatty attenuating lesion of the caudate lobe liver suggests hepatic lipoma, image 153 series 3. The spleen, pancreas and adrenal glands are within normal limits. The kidneys, ureters and urinary bladder are unremarkable. Uterus and adnexa are also unremarkable. Aorta is normal in course and caliber. No bulky adenopathy. Small sliding-type hiatal hernia. No bowel obstruction or focal bowel wall thickening. Nondilated fluid-filled loops of small bowel within the abdomen and pelvis are likely physiologic. No evidence of acute appendicitis. There is an ovoid 1.5 cm fatty attenuating structure adjacent to the sigmoid colon on image 408 series 3 without inflammatory changes identified suggesting area of remote epiploic appendagitis. Soft tissues are unremarkable. Bones appear intact. IMPRESSION: 1. No acute intra-abdominal or intrapelvic abnormality identified. 2. Centrilobular groundglass and patchy consolidative opacity of the left lower lobe suggest pneumonitis. 3. Hepatomegaly with hepatic steatosis. 4. Prior cholecystectomy. Electronically signed by: Daniel Wagoner M.D. 07/04/2017 8:34 PM Dictated Date/Time: 07/04/2017 8:22 PM
[2017-07-05 00:36] VITALS: BP 154/110; PULSE 85; TEMP 37.3; O2SAT 96
[2017-07-05 06:42] LABS: HEMATOCRIT 33.9 % (37-47); HEMOGLOBIN 10.6 g/dL (12.0-16.0); MEAN CORPUSCULAR HGB CONC 31.3 g/dl (32-36); MEAN PLATELET VOLUME 9.3 fL (7.4-10.4); PLATELET COUNT 286 K/uL (130-400); RED CELL DISTRIBUTION WIDTH CV 20.5 % (11.5-14.5); RED CELL DISTRIBUTION WIDTH SD 59.1 fL (36.4-46.3); WHITE BLOOD COUNT 3.81 K/uL (4.8-10.8)
[2017-07-05 07:09] LABS: BASO % 0.5 %; BASO ABS # 0.02 K/uL (0-0.2); EOS % 1.6 %; EOS ABS # 0.06 K/uL (0-0.5); IG# 0.03 K/uL (0.00-0.02); LYMPH % 57.2 %; LYMPH ABS # 2.18 K/uL (1.2-3.4); MONO % 8.1 %; MONO ABS # 0.31 K/uL (0.11-0.59); NEUT % 31.8 %; NEUT ABS # 1.21 K/uL (1.4-6.5)
[2017-07-05 07:13] VITALS: BP 158/105; PULSE 83; TEMP 36.8; O2SAT 97
[2017-07-05 07:14] LABS: CALCIUM 8.3 mg/dl (8.5-10.1); CREATININE 0.8 mg/dl (0.60-1.20); POTASSIUM 3.4 mmol/L (3.5-5.1)
[2017-07-05] MEDS: LEVOFLOXACIN 500 MG TAB PO SCH (08:49)
--- NOTE | 2017-07-05 08:55 | Gastroenterology Progress Note ---
Progress Note Date of Service: Jul 05, 2017 Subjective Pt evaluation today including: conversation w/ patient, physical exam, chart review, lab review, review of studies, review of inpatient medication list Ms. Xie is a 27 yr old female with Patient is a 27 year old female patient of Dr. 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 She was admitted on 07/03 with nausea, vomiting, diarrhea of less than 24 hrs duration. Transaminases were elevated on arrival, now nearly normalized. Hx of prior transaminase elevation as well. AST 102-> 95, ALT 81->68, Alk Phos 125 ->92. T/ D bili yesterday were normal, today with borderline elevation: T Bili 1.3, direct bili 0.4. Since arrival, once small loose BM late yesterday (no sample obtained), tolerating clear liquids well, nausea decreased yesterday and not present today. Generalized abdominal pain and back pain improved with tylenol/tramadol. Pt would like to try to eat regular consistency food. Review of Systems Constitutional: No fever ENT: No hearing loss Respiratory: No cough Cardiac: No chest pain Abdomen: + pain (improved), + nausea (resolved), + vomiting (resolved), + diarrhea (resolved) Female : No dysuria Neuro: No memory loss Psych: No depression symptoms Heme: No abnormal bleeding/bruising Endo: No fatigue Skin: No rash Medications Current Inpatient Medications Medications (Trade) Dose Ordered Sig/[place] Route Start Time Stop Time Status Last Admin Dose Admin Acetaminophen (Tylenol Tab) 650 mg Q4H PRN PO 07/03/17 23:45 08/02/17 23:44 07/04/17 23:30 650 MG Promethazine HCl (Phenergan Tab) 25 mg Q6H PRN PO 07/03/17 23:45 08/02/17 23:44 07/04/17 08:55 25 MG Dicyclomine HCl (Bentyl Cap) 10 mg BID PRN PO 07/04/17 00:00 08/03/17 00:00 07/04/17 15:23 10 MG Levofloxacin (Levaquin Tab) 500 mg DAILY PO 07/04/17 09:00 07/11/17 08:59 07/04/17 08:57 500 MG Lorazepam (Ativan Tab) 0.5 mg TID PRN PO 07/04/17 00:00 08/03/17 00:00 Cetirizine HCl (zyrTEC TAB) 10 mg DAILY PRN PO 07/04/17 11:30 08/03/17 11:29 Ioversol (Optiray 320) 111 ml UD PRN IV 07/04/17 19:00 07/08/17 18:59 Tramadol HCl (Ultram Tab) 50 mg Q6H PRN PO 07/04/17 19:15 08/03/17 19:14 07/04/17 19:56 50 MG Objective Vital Signs Date Time Temp Pulse Resp B/P (MAP) Pulse Ox O2 Delivery O2 Flow Rate FiO2 07/05/17 07:13 36.8 83 20 158/105 (122) 97 Room Air 07/05/17 00:36 37.3 85 20 154/110 (125) 96 Room Air 07/05/17 00:00 Room Air 07/04/17 20:00 Room Air 07/04/17 16:00 97 Room Air 07/04/17 14:52 37.1 86 18 153/101 (118) 98 Room Air 154/100 (118) Physical Exam General Appearance: no apparent distress Neck: no JVD Respiratory/Chest: lungs clear Cardiovascular: regular rate, rhythm, no JVD, no murmur Abdomen: soft, + tenderness (mild epigastric tenderness) Extremities: no pedal edema Neurologic/Psych: alert, normal mood/affect, oriented x 3 Skin: no jaundice Laboratory Results Last 24 Hours Test 07/05/17 06:29 White Blood Count 3.81 K/uL Red Blood Count 4.24 M/uL Hemoglobin 10.6 g/dL Hematocrit 33.9 % Mean Corpuscular Volume 80.0 fL Mean Corpuscular Hemoglobin 25.0 pg Mean Corpuscular Hemoglobin Concent 31.3 g/dl Platelet Count 286 K/uL Mean Platelet Volume 9.3 fL Neutrophils (%) (Auto) 31.8 % Lymphocytes (%) (Auto) 57.2 % Monocytes (%) (Auto) 8.1 % Eosinophils (%) (Auto) 1.6 % Basophils (%) (Auto) 0.5 % Neutrophils # (Auto) 1.21 K/uL Lymphocytes # (Auto) 2.18 K/uL Monocytes # (Auto) 0.31 K/uL Eosinophils # (Auto) 0.06 K/uL Basophils # (Auto) 0.02 K/uL RDW Standard Deviation 59.1 fL RDW Coefficient of Variation 20.5 % Immature Granulocyte % (Auto) 0.8 % Immature Granulocyte # (Auto) 0.03 K/uL Toxic Vacuolation 1+ Giant Platelets 1+ Anisocytosis PRESENT Sodium Level 137 mmol/L Potassium Level 3.4 mmol/L Chloride Level 105 mmol/L Carbon Dioxide Level 24 mmol/L Anion Gap 8.0 mmol/L Blood Urea Nitrogen 3 mg/dl Creatinine 0.80 mg/dl Est Creatinine Clear Calc Drug Dose 148.8 ml/min Estimated GFR () 115.5 Estimated GFR (Non- 99.6 BUN/Creatinine Ratio 3.6 Random Glucose 92 mg/dl Calcium Level 8.3 mg/dl Magnesium Level 2.2 mg/dl Total Bilirubin 1.3 mg/dl Direct Bilirubin 0.4 mg/dl Aspartate Amino Transf (AST/SGOT) 95 U/L Alanine Aminotransferase (ALT/SGPT) 68 U/L Alkaline Phosphatase 92 U/L Total Protein 7.0 gm/dl Albumin 3.0 gm/dl Assessment and Plan Ms. Xie is a 27 yr old female admitted with nausea, vomiting, diarrhea, abdominal pain. Most likely this represents a viral gastroenteritis. She is improving. Plan: 1. Will advance to a regular consistency, low fat diet. 2. Encouraged ambulation. I have seen , examined and agree with the plan as outlined by RITA Montes as above. -exam reveals soft abd
[2017-07-05 09:08] VITALS: O2SAT 97
[2017-07-05 14:13] VITALS: BP 158/105; PULSE 83; TEMP 36.8; O2SAT 97
--- NOTE | 2017-07-05 14:13 | Progress Note ---
Internal Med Progress Note Date of Service: Jul 05, 2017. Provider Documentation: SUBJECTIVE: Seen and examined at bedside States feeling much better Denies nausea tolerated diet Abd pain much improved No other complaints OBJECTIVE: Vital Signs-as noted below Physical Exam: General Appearance:Obese, no apparent distress Head: normocephalic, Atraumatic Eyes: normal inspection, EOMI, PERRL Neck: supple, Trachea midline Respiratory/Chest: Normal breath sounds, CTA Cardiovascular: S1, S2, No murmur Abdomen/GI:Soft, Non tender, Bowel sounds present Extremities/Musculoskelatal:normal inspection, no edema Neurologic/Psych:AAOX3, grossly no focal neurological deficits Skin: normal color, warm Lab data as noted below. ASSESSMENT & PLAN: Patient is 27 yr female with PMH of recurrent pancreatitis presents with nausea and vomiting after 5 days of treatment for pneumonia and is intolerant to PO. CAP CXR no pneumonia Flu PCR negative symptoms improved continue Levaquin day 7/7 Nausea and vomiting/Abd pain: Likely viral gastroenteritis patient reports having nausea/vomiting episodes 1-2x/month PRN antiemetics Appreciate GI Input Urine culture:contaminated CT Abd: as below LFTs near normal Pruritus d/c Toradol Cetirizine po PRN Hypokalemia from vomiting replace and monitor DVT Px; SCDs Code Status Full Code Disposition: Plan to discharge home today Follow up with your PCP on Jul 11, 2017 at 11:00AM Follow up with your sap functional analyst on August 15, 2017 at 10:45AM Seek immediate medical attention if your symptoms reoccur or worsen PROCEDURES: CT ABD: 1. No acute intra-abdominal or intrapelvic abnormality identified. 2. Centrilobular groundglass and patchy consolidative opacity of the left lower lobe suggest pneumonitis. 3. Hepatomegaly with hepatic steatosis. 4. Prior cholecystectomy. Vital Signs: Date Time Temp Pulse Resp B/P (MAP) Pulse Ox O2 Delivery O2 Flow Rate FiO2 07/05/17 09:08 97 Room Air 07/05/17 07:13 36.8 83 20 158/105 (122) 97 Room Air 07/05/17 00:36 37.3 85 20 154/110 (125) 96 Room Air 07/05/17 00:00 Room Air 07/04/17 20:00 Room Air 07/04/17 16:00 97 Room Air 07/04/17 14:52 37.1 86 18 153/101 (118) 98 Room Air 154/100 (118) Lab Results: Results Past 24 Hours Test 07/05/17 06:29 Range/Units White Blood Count 3.81 4.8-10.8 K/uL Red Blood Count 4.24 4.2-5.4 M/uL Hemoglobin 10.6 12.0-16.0 g/dL Hematocrit 33.9 37-47 % Mean Corpuscular Volume 80.0 80-100 fL Mean Corpuscular Hemoglobin 25.0 25-34 pg Mean Corpuscular Hemoglobin Concent 31.3 32-36 g/dl Platelet Count 286 130-400 K/uL Mean Platelet Volume 9.3 7.4-10.4 fL Neutrophils (%) (Auto) 31.8 % Lymphocytes (%) (Auto) 57.2 % Monocytes (%) (Auto) 8.1 % Eosinophils (%) (Auto) 1.6 % Basophils (%) (Auto) 0.5 % Neutrophils # (Auto) 1.21 1.4-6.5 K/uL Lymphocytes # (Auto) 2.18 1.2-3.4 K/uL Monocytes # (Auto) 0.31 0.11-0.59 K/uL Eosinophils # (Auto) 0.06 0-0.5 K/uL Basophils # (Auto) 0.02 0-0.2 K/uL RDW Standard Deviation 59.1 36.4-46.3 fL RDW Coefficient of Variation 20.5 11.5-14.5 % Immature Granulocyte % (Auto) 0.8 % Immature Granulocyte # (Auto) 0.03 0.00-0.02 K/uL Toxic Vacuolation 1+ Giant Platelets 1+ Anisocytosis PRESENT Sodium Level 137 136-145 mmol/L Potassium Level 3.4 3.5-5.1 mmol/L Chloride Level 105 98-107 mmol/L Carbon Dioxide Level 24 21-32 mmol/L Anion Gap 8.0 3-11 mmol/L Blood Urea Nitrogen 3 7-18 mg/dl Creatinine 0.80 0.60-1.20 mg/dl Est Creatinine Clear Calc Drug Dose 148.8 ml/min Estimated GFR () 115.5 Estimated GFR (Non- 99.6 BUN/Creatinine Ratio 3.6 10-20 Random Glucose 92 70-99 mg/dl Calcium Level 8.3 8.5-10.1 mg/dl Magnesium Level 2.2 1.8-2.4 mg/dl Total Bilirubin 1.3 0.2-1 mg/dl Direct Bilirubin 0.4 0-0.2 mg/dl Aspartate Amino Transf (AST/SGOT) 95 15-37 U/L Alanine Aminotransferase (ALT/SGPT) 68 12-78 U/L Alkaline Phosphatase 92 45-117 U/L Total Protein 7.0 6.4-8.2 gm/dl Albumin 3.0 3.4-5.0 gm/dl
--- NOTE | 2017-07-05 14:17 | Discharge Summary ---
Discharge Summary Date of Service Jul 05, 2017. Discharge Summary Admission Date: Jul 03, 2017 at 23:01 Discharge Date: Jul 05, 2017 Discharge Disposition: Home Principal Diagnosis: Viral Gastroenteritis, Pneumonia Procedures: CT ABD: 1. No acute intra-abdominal or intrapelvic abnormality identified. 2. Centrilobular groundglass and patchy consolidative opacity of the left lower lobe suggest pneumonitis. 3. Hepatomegaly with hepatic steatosis. 4. Prior cholecystectomy. Chest/Abd X ray: Normal study. Consultations: GI Pending Studies/Follow-Up: Follow up with your PCP on Jul 11, 2017 at 11:00AM Follow up with your inclinometer tester on August 15, 2017 at 10:45AM Seek immediate medical attention if your symptoms reoccur or worsen Medication Reconciliation Continued Medications: Albuterol Sulfate (Proair Respiclick) 108 Mcg/Act Aer 2 PUFF INH QID PRN for wheezing Dicyclomine Hcl (Bentyl) 10 Mg Cap 10 MG PO DAILY PRN for ABD PAIN, CAP Dicyclomine Hcl (Bentyl) 10 Mg Cap 1 CAP PO BID PRN for abdominal cramping for 30 Days, #60 CAP 1 Refill Levofloxacin (Levofloxacin) 500 Mg Tab 500 MG PO DAILY Loratadine (Claritin) 10 Mg Cap 1 CAP PO DAILY for 30 Days, #30 CAP 3 Refills Lorazepam (Lorazepam) 0.5 Mg Tab 1 TAB PO TID PRN for Anxiety for 30 Days, #90 TAB Omeprazole (Cvs Omeprazole) 20 Mg Tab 40 MG PO BID Promethazine Hcl (Phenergan) 25 Mg Tab 25 MG PO Q4H PRN for Nausea, TAB Admission Information HPI (per Admitting provider): 27 yo F with recent h/o pneumonia still on Levaquin for a 10 day treatment presents with fevers, chills, nausea and vomiting all day today with inability to tolerate PO. She reports coughing and has had some post-tussive emesis. She admits to body aches, headache, back pains and abdominal pain that is generalized. She denies shortness of breath or chest pain and is not in respiratory distress. CXR was clear of pneumonia and AXR did not reveal any obstruction or other overt abdominal pathology. She denies any diarrhea. She kavya any h/o asthma or lung disease. She has had no known sick contacts. Physical Exam (per Admitting): General Appearance: no apparent distress, + obese, + pertinent finding ( very jumpy any time i touched her during the exam ) Head: normocephalic, atraumatic Eyes: normal inspection, PERRL, sclerae normal ENT: hearing grossly normal, pharynx normal Neck: supple, no adenopathy, no JVD, + pertinent finding (pain with palpation of submandibular area. ) Respiratory/Chest: lungs clear, normal breath sounds, no respiratory distress, no accessory muscle use, + pertinent finding (TTP of anterior chest) Cardiovascular: regular rate, rhythm, no edema, no gallop, no JVD, no murmur , normal peripheral pulses Abdomen/GI: normal bowel sounds, soft, + tenderness (generalized, voluntary guarding present) Extremities/Musculoskelatal: normal inspection, no pedal edema Neurologic/Psych: key account coordinator II-XII nml as tested, no motor/sensory deficits, alert , normal mood/affect, oriented x 3 Skin: normal color, warm/dry Hospital Course Patient is 27 yr female with PMH of recurrent pancreatitis presents with nausea and vomiting after 5 days of treatment for pneumonia and is intolerant to PO. CAP CXR no pneumonia Flu PCR negative symptoms improved continue Levaquin day 7/7 Nausea and vomiting/Abd pain: Likely viral gastroenteritis patient reports having nausea/vomiting episodes 1-2x/month PRN antiemetics Appreciate GI Input Urine culture:contaminated CT Abd: as below LFTs near normal Pruritus d/c Toradol Cetirizine po PRN Hypokalemia from vomiting replace and monitor DVT Px; SCDs Code Status Full Code Disposition: Plan to discharge home today Follow up with your PCP on Jul 11, 2017 at 11:00AM Follow up with your inclinometer tester on August 15, 2017 at 10:45AM Seek immediate medical attention if your symptoms reoccur or worsen PROCEDURES: CT ABD: 1. No acute intra-abdominal or intrapelvic abnormality identified. 2. Centrilobular groundglass and patchy consolidative opacity of the left lower lobe suggest pneumonitis. 3. Hepatomegaly with hepatic steatosis. 4. Prior cholecystectomy. Total time spent on discharge = 32 minutes This includes examination of the patient, discharge planning, medication reconciliation, and communication with other providers. Discharge Instructions Discharge Instructions Date of Service Jul 05, 2017. Admission Reason for Admission: Nausea And Vomiting Discharge Discharge Diagnosis / Problem: Viral Gastroenteritis Discharge Goals Goal(s): Decrease discomfort, Improve function Activity Recommendations Activity Limitations: resume your previous activity Exercise/Sports Limitations: as tolerated . Instructions / Follow-Up Instructions / Follow-Up Follow up with your PCP on Jul 11, 2017 at 11:00AM Follow up with your inclinometer tester on August 15, 2017 at 10:45AM Seek immediate medical attention if your symptoms reoccur or worsen Current Hospital Diet Patient's current hospital diet: Regular Diet, Low Fat Diet Discharge Diet Recommended Diet: Regular Diet, Low Fiber Diet, Low Fat Diet Pending Studies Studies pending at discharge: no Medical Emergencies . Who to Call and When: Medical Emergencies: If at any time you feel your situation is an emergency, please call 911 immediately. . Non-Emergent Contact Non-Emergency issues call your: Primary Care Provider, Pumper Gauger Apprentice Call Non-Emergent contact if: you have a fever, your pain is not controlled, your pain is worsening, your pain is unusual for you, your pain is concerning you, you have any medication questions Seek immediate medical attention if your symptoms reoccur or worsen . . "Provider Documentation" section prepared by Paulino Harley. . VTE Core Measure Inpt VTE Proph given/why not?: SCD's, Treatment not indicated
== END 2017-07-05 15:45 | disposition home or self-care (01) | DRG 391 ==
LOC: C.EDB 17:08 → C.MS2W 23:01 → ENRESERV 23:10
PROVIDERS: ADMIT Hospitalist; ATTEND Internal Medicine
DX: A08.4 Viral intestinal infection, unspecified (principal); J18.9 Pneumonia, unspecified organism; Z68.42 Body mass index [BMI] 45.0-49.9, adult; E87.6 Hypokalemia; E86.0 Dehydration; R10.9 Unspecified abdominal pain; L29.9 Pruritus, unspecified; T39.8X5A Adverse effect of other nonopioid analgesics and antipyretics, not elsewhere classified, initial encounter; Y92.230 Patient room in hospital as the place of occurrence of the external cause; E66.9 Obesity, unspecified; Z87.19 Personal history of other diseases of the digestive system; Z79.899 Other long term (current) drug therapy; Z88.5 Allergy status to narcotic agent; Z88.6 Allergy status to analgesic agent; Z88.8 Allergy status to other drugs, medicaments and biological substances

== ENCOUNTER 2017-07-14 19:45 | Observation (INO) | payer OTHER ==
[~2017-07-14] VITALS: Ht 167.6 cm; Wt 138.7 kg
[~2017-07-14 19:45] MED LIST changes: +LORA10CA2 PO; +LVQ500 PO; -PRLSR20 PO
[2017-07-14] MEDS ORDERED: DiphenhydrAMINE HCL 50 MG/ML VIAL IV STA (20:15)
[2017-07-14] MEDS ORDERED: SODIUM CHLORIDE 0.9% 1000ML 2,000 ML IV STA (20:15)
[2017-07-14] MEDS ORDERED: LORAZEPAM 2 MG/ML 1 ML VIAL IV STA ×2 (20:15→22:12)
[2017-07-14] MEDS ORDERED: PROMETHAZINE HCL INJ 12.5 MG in SODIUM CHLORIDE 0.9% 50ML 50 ML IV STA ×2 (20:15→23:14)
--- NOTE | 2017-07-14 20:28 | EMERGENCY ROOM VISIT NOTE ---
History Report prepared by Batsheva: Tono Cain Under the Supervision of: Dr. Mathew Murdock M.D. First contact with patient: 20:10 Chief Complaint: VOMITING Stated Complaint: VOMITING, NAUSEA, PAIN, ABDOMEN History of Present Illness The patient is a 27 year old female who presents to the Emergency Room with complaints of persistent vomiting starting 0900 this morning. She currently rates her discomfort as an 8/10 in severity. She notes that she was in the hospital for a couple days, and she was discharged on the . She followed up with her PCP today, and she was vomiting, and she states that she was given a prescription of Phenergan, and she was given lorazepam and another medication for her anxiety and depression. The patient states that she has been having loose stools today that have a red color. She notes that she has some abdominal pain, though she states that this feels similar to last time she was in the hospital. The patient states that she feels dehydrated since she cannot keep anything down. Source of History: patient Onset: 0900 this morning Position: other (global) Symptom Intensity: 8/10 Quality: other (vomiting) Timing: other (persistent ) Associated Symptoms: + abdominal pain Note: Associated symptoms: Dehydrated and loose stools Review of Systems See HPI for pertinent positives & negatives. A total of 10 systems reviewed and were otherwise negative. Past Medical & Surgical Medical Problems: (1) Abdominal pain (2) Abnormal vaginal bleeding (3) Depression (4) Hepatic steatosis (5) Morbid obesity (6) Nausea and vomiting (7) Pancreatitis (8) Uterine fibroid (9) Uterine fibroid Surgical Problems: (1) H/O esophagogastroduodenoscopy (2) History of esophagogastroduodenoscopy (EGD) (3) S/P cholecystectomy Family History Diabetes mellitus FATHER FH: kidney failure FATHER FH: rheumatoid arthritis MOTHER FHx: pancreatic disease Uncle (Uncle from pancreatitis) Heart disease FATHER Social History Smoking Status: Never Smoker Alcohol Use: occasionally Drug Use: none Marital Status: single, in relationship Housing Status: lives alone 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 Current/Historical Medications Scheduled Escitalopram (Lexapro), 10 MG PO DAILY Omeprazole (Cvs Omeprazole), 40 MG PO BID Scheduled PRN Albuterol Sulfate (Proair Respiclick), 2 PUFF INH QID PRN for wheezing Dicyclomine Hcl (Bentyl), 1 CAP PO BID PRN for abdominal cramping Lorazepam (Lorazepam), 1 TAB PO TID PRN for Anxiety Promethazine Hcl (Phenergan), 25 MG PO Q4H PRN for Nausea Allergies Coded Allergies: Pantoprazole (Verified Allergy, Intermediate, "ITCHY ALL OVER", 05/31/17) Ketorolac Tromethamine (Verified Allergy, Mild, pruritus, 07/04/17) Ondansetron (Verified Allergy, Unknown, lip tingling, 05/31/17) Morphine (Verified Adverse Reaction, Intermediate, ITCHINESS, 05/31/17) Physical Exam Vital Signs Date Time Temp Pulse Resp B/P (MAP) Pulse Ox O2 Delivery O2 Flow Rate FiO2 07/15/17 00:48 132 07/15/17 00:30 124 18 158/119 96 Room Air 07/14/17 23:40 126 18 165/118 99 Room Air 07/14/17 22:30 120 18 153/103 99 Room Air 07/14/17 21:52 122 18 146/98 99 Room Air 07/14/17 20:45 107 18 170/113 99 Room Air 07/14/17 20:37 109 07/14/17 20:00 36.9 142 20 124/73 97 Room Air Physical Exam GENERAL: Patient is in no acute distress. HEENT: No acute trauma, normocephalic atraumatic, mucous membranes dry, no nasal congestion, no scleral icterus. NECK: No stridor, no adenopathy, no meningismus, trachea is midline. LUNGS: Clear to auscultation bilaterally, no wheeze, no rhonchi, breath sounds equal. HEART: Tachycardic with a regular rhythm. No murmurs. ABDOMEN: Diffusely mildly tender. Soft, bowel sounds positive, no hernias, no peritonitis. EXTREMITIES: No cyanosis or edema, full range of motion of all the joints without pain or difficulty, no signs for acute trauma. NEUROLOGIC: Oriented x 3, no acute motor or sensory deficits, no focal weakness. SKIN: No rash, no jaundice, no diaphoresis. Medical Decision & Procedures ER Provider Diagnostic Interpretation: Radiology results as stated below per my review and radiologist interpretation: PA CHEST RADIOGRAPH AND UPRIGHT AND SUPINE AP RADIOGRAPHS OF THE ABDOMEN CLINICAL HISTORY: Abdominal pain and vomiting. COMPARISON STUDY: Chest radiograph and abdominal series July 03, [address] of the abdomen and pelvis July 04, 2017. FINDINGS: Lung volumes are normal. There is no consolidation. There is no evidence for pulmonary edema. No pneumothorax or pleural effusion is noted. Cardiomediastinal silhouette is normal. There is no free air. Cholecystectomy clips are noted. The bowel gas pattern is normal. A left pelvic calcification represents a phlebolith. IMPRESSION: 1. No free air or evidence of bowel obstruction. 2. No acute cardiopulmonary findings. Electronically signed by: Kadeem Fuentes M.D. 07/14/2017 9:19 PM Dictated Date/Time: 07/14/2017 9:18 PM Laboratory Results 07/14/17 20:37 Red Blood Count 4.90, Mean Corpuscular Volume 76.9, Mean Corpuscular Hemoglobin 24.9, Mean Corpuscular Hemoglobin Concent 32.4, Mean Platelet Volume 9.8, Neutrophils (%) (Auto) 57.2, Lymphocytes (%) (Auto) 31.3, Monocytes (%) (Auto) 11.0, Eosinophils (%) (Auto) 0.0, Basophils (%) (Auto) 0.4, Neutrophils # (Auto ) 3.83, Lymphocytes # (Auto) 2.10, Monocytes # (Auto) 0.74, Eosinophils # (Auto ) 0.00, Basophils # (Auto) 0.03 Test 07/14/17 20:32 07/14/17 20:37 Human Chorionic Gonadotropin, Qual NEG (NEG) White Blood Count 6.71 K/uL (4.8-10.8) Red Blood Count 4.90 M/uL (4.2-5.4) Hemoglobin 12.2 g/dL (12.0-16.0) Hematocrit 37.7 % (37-47) Mean Corpuscular Volume 76.9 fL (80-100) Mean Corpuscular Hemoglobin 24.9 pg (25-34) Mean Corpuscular Hemoglobin Concent 32.4 g/dl (32-36) Platelet Count 435 K/uL (130-400) Mean Platelet Volume 9.8 fL (7.4-10.4) Neutrophils (%) (Auto) 57.2 % Lymphocytes (%) (Auto) 31.3 % Monocytes (%) (Auto) 11.0 % Eosinophils (%) (Auto) 0.0 % Basophils (%) (Auto) 0.4 % Neutrophils # (Auto) 3.83 K/uL (1.4-6.5) Lymphocytes # (Auto) 2.10 K/uL (1.2-3.4) Monocytes # (Auto) 0.74 K/uL (0.11-0.59) Eosinophils # (Auto) 0.00 K/uL (0-0.5) Basophils # (Auto) 0.03 K/uL (0-0.2) RDW Standard Deviation 57.9 fL (36.4-46.3) RDW Coefficient of Variation 21.0 % (11.5-14.5) Immature Granulocyte % (Auto) 0.1 % Immature Granulocyte # (Auto) 0.01 K/uL (0.00-0.02) Anisocytosis PRESENT Magnesium Level 1.8 mg/dl (1.8-2.4) Lipase 156 U/L (73-393) Laboratory results reviewed by me. Medications Administered Medications (Trade) Dose Ordered Sig/Marlin Route Start Time Stop Time Status Last Admin Dose Admin Sodium Chloride 2,000 ml @ 999 mls/hr Q2H1M STAT IV 07/14/17 20:15 07/14/17 22:15 DC 07/14/17 20:40 999 MLS/HR Lorazepam (Ativan Inj) 0.5 mg NOW STAT IV 07/14/17 20:15 07/14/17 20:20 DC 07/14/17 20:42 0.5 MG Promethazine HCl 12.5 mg/Sodium Chloride 50.5 ml @ 204 mls/hr NOW STAT IV 07/14/17 20:15 07/14/17 20:29 DC 07/14/17 20:49 204 MLS/HR Diphenhydramine HCl (Benadryl Inj) 25 mg NOW STAT IV 07/14/17 20:15 07/14/17 20:20 DC 07/14/17 20:41 25 MG Sodium Chloride 1,000 ml @ 999 mls/hr Q1H1M STAT IV 07/14/17 21:55 07/14/17 22:55 DC 07/15/17 00:01 999 MLS/HR Lorazepam (Ativan Inj) 0.5 mg NOW STAT IV 07/14/17 22:12 07/14/17 22:13 DC 07/14/17 22:34 0.5 MG Hydromorphone HCl (Dilaudid Inj) 0.5 mg NOW STAT IV 07/14/17 23:14 07/14/17 23:15 DC 07/15/17 00:03 0.5 MG Promethazine HCl 12.5 mg/Sodium Chloride 50.5 ml @ 204 mls/hr NOW STAT IV 07/14/17 23:14 07/14/17 23:28 DC 07/14/17 23:40 204 MLS/HR Acetaminophen (Tylenol Tab) 650 mg Q4H PRN PO 07/15/17 01:00 08/14/17 00:59 07/15/17 03:13 650 MG ECG Per My Interpretation Indication: vomiting Rate (beats per minute): 119 Rhythm: sinus tachycardia Findings: other (No PAC, No PVC, no ST elevation) ED Course 2009: The patient was evaluated in room B7. A complete history and physical exam was performed. 2015: Benadryl 25mg IV, Promethazine HCl 12.5mg/ Sodium Chloride 50.5ml @ 204mls /hr IV, Ativan 0.5mg IV, Sodium Chloride 2000 ml @ 999 mls/hr IV 2155: Sodium Chloride 1000 ml @ 999 mls/hr IV 2212: Ativan 0.5mg IV 2233: I reevaluated the patient, and the fluids are going slowly, but she is feeling better. 2314: Promethazine HCl 12.5mg/ Sodium Chloride 50.5ml @ 204mls/hr IV, Dilaudid 0.5mg IV 0005: Spoke with the patient, she is still tachycardic, she is still nauseated despite several doses of nausea medication. The on-call [facility] hospitalist was consulted. Medical Decision Differential diagnoses include: Dehydration, electrolyte imbalance, bowel obstruction, anxiety, viral illness, food borne illness, and UTI There is no leukocytosis or concerning anemia. No significant electrolyte abnormality or kidney failure. No pancreatitis. Liver enzymes are mildly elevated but not as high as when she was last evaluated. Urinalysis does not show evidence for infection, dehydration was noted. Obstruction series does not show pneumonia, free air or bowel obstruction. testing is negative. On exam, the patient does not have evidence for peritonitis. She was tachycardic. The patient was dehydrated. She received IV saline, IV Phenergan, IV Benadryl and IV Ativan. She eventually required another dose of IV Ativan and IV Phenergan. She is improved but still tachycardic and still quite nauseated. She is not doing well with oral intake. I do think a hospitalization is required. The cause for the recurrent nausea and vomiting is unclear. She has not responded adequately to treatment here in the ED, I am not comfortable with discharge home. I talked to the patient and case management. The on-call hospitalist was consulted. Medication Reconcilliation Current Medication List: was personally reviewed by me Blood Pressure Screening Patient's blood pressure: Elevated blood pressure Blood pressure disposition: Elevated BP felt to be situational Impression Primary Impression: Vomiting Additional Impressions: Dehydration Tachycardia Diffuse abdominal pain Scribe Attestation The scribe's documentation has been prepared under my direction and personally reviewed by me in its entirety. I confirm that the note above accurately reflects all work, treatment, procedures, and medical decision making performed by me. Departure Information Dispostion Being Evaluated By Hospitalist Referrals Logan Tsai D.O. (PCP) Patient Instructions My [facility] Problem Qualifiers
[2017-07-14 21:11] LABS: BASO % 0.4 %; BASO ABS # 0.03 K/uL (0-0.2); HEMATOCRIT 37.7 % (37-47); HEMOGLOBIN 12.2 g/dL (12.0-16.0); IG# 0.01 K/uL (0.00-0.02); LYMPH % 31.3 %; MEAN CELL VOLUME 76.9 fL (80-100); MEAN CORPUSCULAR HEMOGLOBIN 24.9 pg (25-34); MEAN CORPUSCULAR HGB CONC 32.4 g/dl (32-36); MEAN PLATELET VOLUME 9.8 fL (7.4-10.4); MONO ABS # 0.74 K/uL (0.11-0.59); NEUT % 57.2 %; NEUT ABS # 3.83 K/uL (1.4-6.5); PLATELET COUNT 435 K/uL (130-400); RED CELL DISTRIBUTION WIDTH SD 57.9 fL (36.4-46.3); WHITE BLOOD COUNT 6.71 K/uL (4.8-10.8)
--- NOTE | 2017-07-14 21:21 | DIAGNOSTIC IMAGING REPORT ---
PA CHEST RADIOGRAPH AND UPRIGHT AND SUPINE AP RADIOGRAPHS OF THE ABDOMEN CLINICAL HISTORY: Abdominal pain and vomiting. COMPARISON STUDY: Chest radiograph and abdominal series July 03, [address] of the abdomen and pelvis July 04, 2017. FINDINGS: Lung volumes are normal. There is no consolidation. There is no evidence for pulmonary edema. No pneumothorax or pleural effusion is noted. Cardiomediastinal silhouette is normal. There is no free air. Cholecystectomy clips are noted. The bowel gas pattern is normal. A left pelvic calcification represents a phlebolith. IMPRESSION: 1. No free air or evidence of bowel obstruction. 2. No acute cardiopulmonary findings. Electronically signed by: Kadeem Fuentes M.D. 07/14/2017 9:19 PM Dictated Date/Time: 07/14/2017 9:18 PM
[2017-07-14 21:24] LABS: CALCIUM 9.1 mg/dl (8.5-10.1); CREATININE 0.93 mg/dl (0.60-1.20); POTASSIUM 3.5 mmol/L (3.5-5.1)
[2017-07-14 21:27] LABS: TOTAL PROTEIN 8.6 gm/dl (6.4-8.2)
[2017-07-14] MEDS ORDERED: SODIUM CHLORIDE 0.9% 1000ML 1,000 ML IV STA (21:55)
[2017-07-14] MEDS ORDERED: ESCI10TA17 PO (21:56)
[2017-07-14] MEDS ORDERED: HYDROmorphone INJ 2 MG/ML SYR/VIAL IV STA (23:14)
[2017-07-14] MEDS ORDERED: OMEP20TA40 PO (23:52)
[2017-07-14] MEDS ORDERED: DICY10CA55 PO (23:52)
[2017-07-14] MEDS ORDERED: ALBU18002 INH (23:52)
[2017-07-15] VITALS (8 sets, daily range): BP systolic 129–166; BP diastolic 84–108; PULSE 89–104; TEMP 36.5–37.2; O2SAT 92–99; Ht 167.6 cm; Wt 138.7 kg
[2017-07-15] MEDS ORDERED: ACETAMINOPHEN 325 MG TAB PO PRN (01:00)
[2017-07-15] MEDS ORDERED: POLYETHYLENE (MIRALAX) 17 GM PACK PO PRN (01:00)
[2017-07-15] MEDS ORDERED: PROMETHAZINE HCL INJ 12.5 MG in SODIUM CHLORIDE 0.9% 50ML 50 ML IV PRN (01:15)
[2017-07-15] MEDS ORDERED: hydrOXYzine HCL 25 MG TAB PO PRN (01:15)
--- NOTE | 2017-07-15 01:31 | History and Physical ---
History & Physical Date & Time of Service: Jul 15, 2017 at 01:22 Chief Complaint: Vomiting, Nausea, Pain, Abdomen Primary Care Physician: Logan Tsai D.OSybil History of Present Illness Source: patient, clinic records, hospital records Patient is a 27 yo female who presents to the ER for complaints of intractable abdominal pain, nausea, vomiting, and perineal pain and burning. She reports that she was in the hospital recently for pneumonia and nausea/vomiting, and was fine for several days while at home but today has had severe vomiting to the point of not being able to keep down liquids including water, or anti- emetic promethazine. She reports having this type of N/V 1-2 days per week and states that it normally resolves after a day. She also reports that whenever she feels these symptoms she gets intense pruritis all over, and also complains of having pruritis and burning pain in her vaginal and perineal area. She states she has had an occasional frontal SALINAS with some photophobia, but no visual changes. She also notes having water stools that are occasionally yellowish green in color. She denies any known sick contacts or ingestion of anything unusual or undercooked. She was recently on levaquin which was completed for CAP. No other medication changes or abx noted. She was seen at her PCP's office today and was vomiting, and was encouraged to come to the ER if symptoms were not controlled. The patient reports having fear of pancreatitis as she has had it before and it has started with similar symptoms. Past Medical/Surgical History Medical Problems: (1) Abdominal pain Status: Chronic (2) Abnormal vaginal bleeding Status: Resolved (3) Depression Status: Chronic (4) Hepatic steatosis Status: Chronic (5) Morbid obesity Status: Chronic (6) Pancreatitis Status: Chronic (7) Uterine fibroid Status: Resolved (8) Uterine fibroid Status: Chronic Surgical Problems: (1) H/O esophagogastroduodenoscopy Permanent Comment: August 2016-esophagitis and gastritis; October 11, 2016- normal Status: Chronic (2) History of esophagogastroduodenoscopy (EGD) Permanent Comment: 09/01/16- - [place] Grade B reflux esophagitis Status: Chronic (3) S/P cholecystectomy Status: Chronic Family History Diabetes mellitus FATHER FH: kidney failure FATHER FH: rheumatoid arthritis MOTHER FHx: pancreatic disease Uncle (Uncle from pancreatitis) Heart disease FATHER Social History Smoking Status: Never Smoker Drug Use: none Marital Status: single, in relationship Housing status: lives alone 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 Immunizations History of Influenza Vaccine: No History of Tetanus Vaccine?: No History of Pneumococcal: No History of Hepatitis B Vaccine: No Multi-Drug Resistant Organisms History of MDRO: No Allergies Coded Allergies: Pantoprazole (Verified Allergy, Intermediate, "ITCHY ALL OVER", 05/31/17) Ketorolac Tromethamine (Verified Allergy, Mild, pruritus, 07/04/17) Ondansetron (Verified Allergy, Unknown, lip tingling, 05/31/17) Morphine (Verified Adverse Reaction, Intermediate, ITCHINESS, 05/31/17) Home Medications Scheduled Escitalopram (Lexapro), 10 MG PO DAILY Omeprazole ([facility] Omeprazole), 40 MG PO BID Scheduled PRN Albuterol Sulfate (Proair Respiclick), 2 PUFF INH QID PRN for wheezing Dicyclomine Hcl (Bentyl), 1 CAP PO BID PRN for abdominal cramping Lorazepam (Lorazepam), 1 TAB PO TID PRN for Anxiety Promethazine Hcl (Phenergan), 25 MG PO Q4H PRN for Nausea Review of Systems Constitutional: + chills, No fever, No sweats, No weight loss Eyes: + redness, No eye pain, No diplopia ENT: No hearing loss, No nasal symptoms, No sore throat, No trouble swallowing Respiratory: No cough, No sputum, No wheezing, No shortness of breath Cardiovascular: No chest pain, No edema, No claudication, No palpitations Abdomen: + pain, + nausea, + vomiting, + diarrhea Musculoskeletal: No joint pain, No muscle pain, No swelling Genitourinary - Female: + dysuria, + vaginal discharge, + vaginal itching, No urinary frequency, No urinary urgency Neurologic: No paralysis, No weakness, No numbness/tingling, No vertigo, No balance problems Psychiatric: + anxiety, No depression symptoms, No insomnia Endocrine: No fatigue, No excessive thirst, No excessive urination Hematologic / Lymphatic: No abnormal bleeding/bruising, No swollen lymph nodes , No night sweats Integumentary: + itch, No rash, No new/changing skin lesions Physical Exam Vital Signs Date Time Temp Pulse Resp B/P (MAP) Pulse Ox O2 Delivery O2 Flow Rate FiO2 07/15/17 00:48 132 07/14/17 23:40 126 18 165/118 99 Room Air 07/14/17 22:30 120 18 153/103 99 Room Air 07/14/17 21:52 122 18 146/98 99 Room Air 07/14/17 20:45 107 18 170/113 99 Room Air 07/14/17 20:37 109 07/14/17 20:00 36.9 142 20 124/73 97 Room Air General Appearance: WD/WN, no apparent distress Head: normocephalic, atraumatic Eyes: PERRL, EOMI, sclerae normal, funduscopic exam normal ENT: hearing grossly normal Neck: supple, no JVD, trachea midline Respiratory/Chest: chest non-tender, lungs clear, normal breath sounds, no respiratory distress, no accessory muscle use Cardiovascular: regular rate, rhythm, no edema, no gallop, no JVD, no murmur Abdomen/GI: normal bowel sounds, soft, no organomegaly, + tenderness ( subjective tenderness diffusely but worse in epigastric) Genitourinary - Female: external genitalia normal, normal pelvic exam, normal cervix, + pertinent finding (could not palpate uterus and ovaries) Back: no CVA tenderness Extremities/Musculoskelatal: no calf tenderness, no pedal edema Neurologic/Psych: no motor/sensory deficits, alert, normal mood/affect, oriented x 3 Skin: normal color, warm/dry, no rash Diagnostics Laboratory Results Results Past 24 Hours Test 07/14/17 20:32 07/14/17 20:37 Range/Units Human Chorionic Gonadotropin, Qual NEG NEG White Blood Count 6.71 4.8-10.8 K/uL Red Blood Count 4.90 4.2-5.4 M/uL Hemoglobin 12.2 12.0-16.0 g/dL Hematocrit 37.7 37-47 % Mean Corpuscular Volume 76.9 80-100 fL Mean Corpuscular Hemoglobin 24.9 25-34 pg Mean Corpuscular Hemoglobin Concent 32.4 32-36 g/dl Platelet Count 435 130-400 K/uL Mean Platelet Volume 9.8 7.4-10.4 fL Neutrophils (%) (Auto) 57.2 % Lymphocytes (%) (Auto) 31.3 % Monocytes (%) (Auto) 11.0 % Eosinophils (%) (Auto) 0.0 % Basophils (%) (Auto) 0.4 % Neutrophils # (Auto) 3.83 1.4-6.5 K/uL Lymphocytes # (Auto) 2.10 1.2-3.4 K/uL Monocytes # (Auto) 0.74 0.11-0.59 K/uL Eosinophils # (Auto) 0.00 0-0.5 K/uL Basophils # (Auto) 0.03 0-0.2 K/uL RDW Standard Deviation 57.9 36.4-46.3 fL RDW Coefficient of Variation 21.0 11.5-14.5 % Immature Granulocyte % (Auto) 0.1 % Immature Granulocyte # (Auto) 0.01 0.00-0.02 K/uL Anisocytosis PRESENT Sodium Level 138 136-145 mmol/L Potassium Level 3.5 3.5-5.1 mmol/L Chloride Level 103 98-107 mmol/L Carbon Dioxide Level 24 21-32 mmol/L Anion Gap 10.0 3-11 mmol/L Blood Urea Nitrogen 7 7-18 mg/dl Creatinine 0.93 0.60-1.20 mg/dl Est Creatinine Clear Calc Drug Dose 129.0 ml/min Estimated GFR () 96.3 Estimated GFR (Non- 83.1 BUN/Creatinine Ratio 7.7 10-20 Random Glucose 83 70-99 mg/dl Calcium Level 9.1 8.5-10.1 mg/dl Magnesium Level 1.8 1.8-2.4 mg/dl Total Bilirubin 1.3 0.2-1 mg/dl Aspartate Amino Transf (AST/SGOT) 71 15-37 U/L Alanine Aminotransferase (ALT/SGPT) 54 12-78 U/L Alkaline Phosphatase 107 45-117 U/L Total Protein 8.6 6.4-8.2 gm/dl Albumin 4.0 3.4-5.0 gm/dl Globulin 4.6 2.5-4.0 gm/dl Albumin/Globulin Ratio 0.9 0.9-2 Lipase 156 73-393 U/L Impression Assessment and Plan RECURRENT CYCLICAL VOMITING/DIARRHEA: -per patient this has been recurring more frequently, an avg of 1-2 days per week but more frequently this month -states her symptoms have been progressively worsening since GB surgery -LFTs/bili actually appear better than last admission >1 week ago -repeat labs in AM -lipase normal -symptomatic treatment with anti-emetics -chest/abdomen X ray negative -check stool for c diff and stool culture -tox screen negative, opiates positive but given in the ER, await confirmatory; no marijuana use per tox or history -GI consult; will hold off on further imaging until GI eval TACHYCARDIA: was 140's sinus tach -likely from hypovolemia related to vomiting/diarrhea -+ketones in urine without other metabolic abnormality -hydrate with IV fluids -consider low dose BB if HR is not improving GENERALIZED PRURITUS: -atarax PRN VAGINAL SYMPTOMS: Discharge, pruritus, burning -no pathologic discharge noted on pelvic, fungal and gram stain, GC cultures sent, no CMT, no gross lesions or evidence for infection -give 1 dose Diflucan TRANSIENT HTN: -no prior hx of HTN -possibly from abdominal pain + IV fluids -monitor and may require treatment if not improving Level of Care Telemetry Resuscitation Status FULL RESUSCITATION VTE Prophylaxis VTE Risk Assessment Done? Y/N: Yes Risk Level: Moderate Given or contraindicated: Enoxaparin (Lovenox)SQ
[2017-07-15] MEDS: SODIUM CHLORIDE 0.9% 1000ML 1,000 ML IV SCH ×3 (03:13→21:18)
[2017-07-15] MEDS ORDERED: ALBUTEROL HFA 8 GM INHALER INH PRN (03:15)
[2017-07-15] MEDS ORDERED: DICYCLOMINE HCL 10 MG CAP PO PRN (03:15)
[2017-07-15] MEDS ORDERED: LORAZEPAM 0.5 MG TAB PO PRN (03:15)
[2017-07-15] MEDS ORDERED: IV FLUIDS COMPLETED PRN (04:15)
[2017-07-15 07:18] LABS: INR 1.1 (0.9-1.1)
[2017-07-15 07:42] LABS: ALBUMIN 3.2 gm/dl (3.4-5.0); CALCIUM 8.3 mg/dl (8.5-10.1); CREATININE 0.86 mg/dl (0.60-1.20); POTASSIUM 3.2 mmol/L (3.5-5.1)
[2017-07-15 07:45] LABS: TOTAL PROTEIN 7.1 gm/dl (6.4-8.2)
[2017-07-15] MEDS ORDERED: FLUCONAZOLE 100 MG TAB PO ONE (07:45)
[2017-07-15] MEDS ORDERED: ENOXAPARIN 30 MG/0.3 ML SYR SC SCH (08:00)
[2017-07-15] MEDS: ESCITALOPRAM OXALATE 10 MG TAB PO SCH (08:13)
[2017-07-15] MEDS: LANSOPRAZOLE SOLUTAB 15 MG PO SCH ×2 (08:13→20:38)
[2017-07-15] MEDS ORDERED: TRAMADOL HCL 50 MG TAB PO ONE (09:26)
--- NOTE | 2017-07-15 10:53 | Gastrointestinal Consultation ---
Gastrointestinal Consultation Date of Consultation: Jul 15, 2017 Attending Physician: Dr. Seals Consulting Physician: Dr. Damon Reason for Consultation: recurrent abdominal pain, nause, vomiting, diarrhea History of Present Illness Patient is a 27 year old female patient of Dr. 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 She reports intermittent episodes of nausea/vomiting/abdominal pain, typically occurring 1-2 days/week, generally able to stop the episode if she takes Phenergan po at the onset. Yesterday at 9AM, she began with one of these episodes but when she took the Phenergan, she vomited it back up. She also tried lorazepam as well which she also brought back up. The vomiting continued, initially yellow with mucous. Walsh she began to see small specks of brown in the emesis, she presented to the ED for concern that she may be vomiting blood. She also had looser stools than usual, about 2 yesterday, also with mucous. This morning, her nausea and vomiting are resolved and she passed only one small loose BM this morning. On arrival: mild anemia with Hb 10.8, T B 1.3 yesterday, 1.7 today, AST 71 ( today 54), ALT 54 (today 42), lipase normal. Stool studies are pending. Prior work up for abdominal pain, nausea, vomiting includes: CT abd/pelvis with IV contrast on 07/04: 1. No acute intra-abdominal or intrapelvic abnormality identified. 2. Centrilobular ground glass and patchy consolidative opacity of the left lower lobe suggest pneumonitis. 3. Hepatomegaly with hepatic steatosis. 4. Prior cholecystectomy. EUS on 04/21/[address] Lai: Normal ampulla. - Evidence of a cholecystectomy. - 6 mm common bile duct. - Normal left lobe of the liver. - Normal pancreas. - Normal left adrenal gland. ERCP by Dr. Young on 04/21/17: - The major papilla appeared normal. - Biliary papillary stenosis, benign. - The patient has had a cholecystectomy. 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 - The biliary tree was swept and a small amount of debris was found. - Indomethacin given to decrease risk of post-ERCP pancreatitis. EGD in September 2016: normal. Past Medical/Surgical History Medical Problems: (1) Dehydration Status: Acute (2) Dehydration Status: Acute (3) Dehydration Status: Acute (4) Dehydration Status: Acute (5) Diffuse abdominal pain Status: Acute (6) Diffuse abdominal pain Status: Acute (7) Double vision Status: Acute (8) Headache Status: Acute (9) Intractable abdominal pain Status: Acute (10) Intractable abdominal pain Status: Acute (11) Intractable nausea and vomiting Status: Acute (12) Pancreatic mass Status: Acute (13) Pancreatitis Status: Acute (14) Pancreatitis Status: Acute (15) Pancreatitis Status: Chronic (16) Pneumonia Status: Acute (17) Syncope Status: Acute (18) Tachycardia Status: Acute (19) UTI (urinary tract infection) Status: Acute (20) Vomiting Status: Acute Surgical Problems: (1) History of esophagogastroduodenoscopy (EGD) Permanent Comment: 09/01/16- - [place] Grade B reflux esophagitis Status: Chronic Past Medical History: 1. Depression 2. Sphincter of Oddi disorder 3. Acute pancreatitis 4. Obesity 6. Chronic transaminitis Past Surgical History: 1. EGD 2. EUS 3. ERCP 4. Lap cholecystectomy Family History Diabetes mellitus FATHER FH: kidney failure FATHER FH: rheumatoid arthritis MOTHER FHx: pancreatic disease Uncle (Uncle from pancreatitis) Heart disease FATHER Social History Smoking Status: Never Smoker Alcohol Use: occasionally Drug Use: none Marital Status: single, in relationship Housing Status: lives alone 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 Allergies Coded Allergies: Pantoprazole (Verified Allergy, Intermediate, "ITCHY ALL OVER", 05/31/17) Ketorolac Tromethamine (Verified Allergy, Mild, pruritus, 07/04/17) Ondansetron (Verified Allergy, Unknown, lip tingling, 05/31/17) Morphine (Verified Adverse Reaction, Intermediate, ITCHINESS, 05/31/17) Current Medications Home Meds and Scripts Medications Dose Route/Sig Max Daily Dose Days Date Category Lexapro (Escitalopram Oxalate) 10 Mg Tab 10 Mg PO DAILY 07/14/17 Reported Proair Respiclick (Albuterol Sulfate) 108 Mcg/Act Aer 2 Puff INH QID PRN 07/03/17 Reported Bentyl (Dicyclomine Hcl) 10 Mg Cap 1 Cap PO BID PRN 30 07/03/17 Reported [facility] Omeprazole (Omeprazole) 20 Mg Tab 40 Mg PO BID 07/03/17 Reported Phenergan (Promethazine HCl) 25 Mg Tab 25 Mg PO Q4H PRN 04/30/17 Reported Lorazepam 0.5 Mg Tab 1 Tab PO TID PRN 30 01/18/17 Reported Review of Systems Constitutional: + chills, + sweats, + weakness, + problem reported ("feels dehydrated"), No fever, No weight loss Eyes: No eye pain, No redness ENT: No sore throat, No trouble swallowing, No pain on swallowing Respiratory: No cough, No wheezing, No shortness of breath, No dyspnea on exertion Cardiac: No chest pain, No edema, No palpitations Abdomen: + see HPI, + pain (diffuse), + nausea, + vomiting, + diarrhea, + GI bleeding Female : + dysuria, + problem reported (vaginal itching and pain) Neuro: No memory loss, No weakness, No numbness/tingling, No vertigo, No balance problems Psych: No depression symptoms, No anxiety, No insomnia Heme: No abnormal bleeding/bruising, No night sweats Endo: No excessive thirst, No excessive urination Skin: No rash, No itch, No new/changing skin lesions, No jaundice Physical Exam Date Time Temp Pulse Resp B/P (MAP) Pulse Ox O2 Delivery O2 Flow Rate FiO2 07/15/17 07:25 37.2 101 20 129/85 (100) 95 07/15/17 04:00 Room Air 07/15/17 03:33 37.2 104 18 160/106 97 Room Air 07/15/17 02:30 96 Room Air 07/15/17 02:03 117 18 141/84 97 07/15/17 00:48 132 07/15/17 00:30 124 18 158/119 96 Room Air 07/14/17 23:40 126 18 165/118 99 Room Air 07/14/17 22:30 120 18 153/103 99 Room Air 07/14/17 21:52 122 18 146/98 99 Room Air 07/14/17 20:45 107 18 170/113 99 Room Air 07/14/17 20:37 109 07/14/17 20:00 36.9 142 20 124/73 97 Room Air General Appearance: no apparent distress, + obese, + pertinent finding (was wakened from sleep to complete the interview/exam) Eyes: normal inspection, EOMI Neck: supple, no adenopathy, thyroid normal, no JVD Respiratory/Chest: chest non-tender, lungs clear, normal breath sounds, no accessory muscle use Cardiovascular: regular rate, rhythm, no JVD, no murmur Abdomen: normal bowel sounds, non tender, soft, no organomegaly Extremities: normal inspection, no pedal edema, normal capillary refill Neurologic/Psych: alert, normal mood/affect, oriented x 3 Skin: normal color, no jaundice, warm/dry, no rash Laboratory Results Last 24 Hours Test 07/14/17 20:32 07/14/17 20:37 07/15/17 01:40 07/15/17 01:45 Human Chorionic Gonadotropin, Qual NEG White Blood Count 6.71 K/uL Red Blood Count 4.90 M/uL Hemoglobin 12.2 g/dL Hematocrit 37.7 % Mean Corpuscular Volume 76.9 fL Mean Corpuscular Hemoglobin 24.9 pg Mean Corpuscular Hemoglobin Concent 32.4 g/dl Platelet Count 435 K/uL Mean Platelet Volume 9.8 fL Neutrophils (%) (Auto) 57.2 % Lymphocytes (%) (Auto) 31.3 % Monocytes (%) (Auto) 11.0 % Eosinophils (%) (Auto) 0.0 % Basophils (%) (Auto) 0.4 % Neutrophils # (Auto) 3.83 K/uL Lymphocytes # (Auto) 2.10 K/uL Monocytes # (Auto) 0.74 K/uL Eosinophils # (Auto) 0.00 K/uL Basophils # (Auto) 0.03 K/uL RDW Standard Deviation 57.9 fL RDW Coefficient of Variation 21.0 % Immature Granulocyte % (Auto) 0.1 % Immature Granulocyte # (Auto) 0.01 K/uL Anisocytosis PRESENT Sodium Level 138 mmol/L Potassium Level 3.5 mmol/L Chloride Level 103 mmol/L Carbon Dioxide Level 24 mmol/L Anion Gap 10.0 mmol/L Blood Urea Nitrogen 7 mg/dl Creatinine 0.93 mg/dl Est Creatinine Clear Calc Drug Dose 129.0 ml/min Estimated GFR () 96.3 Estimated GFR (Non- 83.1 BUN/Creatinine Ratio 7.7 Random Glucose 83 mg/dl Calcium Level 9.1 mg/dl Magnesium Level 1.8 mg/dl Total Bilirubin 1.3 mg/dl Aspartate Amino Transf (AST/SGOT) 71 U/L Alanine Aminotransferase (ALT/SGPT) 54 U/L Alkaline Phosphatase 107 U/L Total Protein 8.6 gm/dl Albumin 4.0 gm/dl Globulin 4.6 gm/dl Albumin/Globulin Ratio 0.9 Lipase 156 U/L Urine Color ORANGE Urine Appearance CLOUDY Urine pH 5.5 Urine Specific [place] 1.032 Urine Protein 1+ Urine Glucose (UA) NEG Urine Ketones 3+ Urine Occult Blood NEG Urine Nitrite NEG Urine Bilirubin NEG Urine Urobilinogen NEG Urine Leukocyte Esterase NEG Urine WBC (Auto) 1-5 /hpf Urine RBC (Auto) 0-4 /hpf Urine Hyaline Casts (Auto) 0 /lpf Urine Epithelial Cells (Auto) >30 /lpf Urine Bacteria (Auto) NEG Urine Pathogenic Casts /lpf Urine Opiates Screen POS Urine Methadone, Qualitative NEG Urine Barbiturates NEG Urine Phencyclidine (PCP) Level NEG Ur Amphetamine/Methamphetamine NEG MDMA (Ecstasy) Screen NEG Urine Benzodiazepines Screen NEG Urine Cocaine Metabolite NEG Urine Marijuana (THC) NEG Test 07/15/17 06:23 Prothrombin Time 11.2 SECONDS Prothromb Time International Ratio 1.1 Sodium Level 139 mmol/L Potassium Level 3.2 mmol/L Chloride Level 106 mmol/L Carbon Dioxide Level 24 mmol/L Anion Gap 9.0 mmol/L Blood Urea Nitrogen 7 mg/dl Creatinine 0.86 mg/dl Est Creatinine Clear Calc Drug Dose 137.9 ml/min Estimated GFR () 105.8 Estimated GFR (Non- 91.3 BUN/Creatinine Ratio 7.8 Random Glucose 77 mg/dl Calcium Level 8.3 mg/dl Total Bilirubin 1.7 mg/dl Aspartate Amino Transf (AST/SGOT) 54 U/L Alanine Aminotransferase (ALT/SGPT) 42 U/L Alkaline Phosphatase 90 U/L Total Protein 7.1 gm/dl Albumin 3.2 gm/dl Globulin 3.9 gm/dl Albumin/Globulin Ratio 0.8 Impression Patient is a 27 year old female with IBS and functional nausea, vomiting, diarrhea. She has just begun to address anxiety issues with her PCP and this may improve her symptoms. She has had multiple imaging and endoscopic tests w/o significant abnormalities (other than pancreatitis at the onset of these issues) , so would defer further testing at this time. Plan She definitely needs an antiemetic that she can self administer rectally when these symptoms begin as she is not able to retain the po meds while she is vomiting. I will add a Phenergan suppository prescription to her outpatient chart. She will pick this up on discharge. Pt is improving and after she is hydrated will likely be able to be discharged. I performed a history and physical examination of the patient. I have discussed the patient's case, impression and plan with RITA Delgado. Her note reflects my findings and plan. No signs of pancreatitis. Cont current care. Brady Damon MD
[2017-07-15] MEDS ORDERED: POTASSIUM CHLORIDE 20 MEQ TABCR PO ONE (13:30)
[2017-07-15] MEDS: TRAMADOL HCL 50 MG TAB PO PRN (20:38)
--- NOTE | 2017-07-15 21:42 | Progress Note ---
Medicine Progress Note Date & Time of Visit: Jul 15, 2017 at 15:09. Subjective 27 yo F with recurrent cyclic vomiting along with some loose stool and abdominal discomfort. She reports the abdominal discomfort has improved, and diarrhea and vomiting has resolved but she is still hesitant about any food. She was also reporting vaginal and rectal pain. She was given some diflucan today and already reports some improvement. -tolerated some Jello and willing to try regular food later today -abdominal pain improved with the Tramadol -discussed HIV screening and pt counseled, agrees to test, which is negative. -some nausea persists. -pt reports working on anxiety recently with her PCP. Objective Last 8 Hrs Date Time Temp Pulse Resp B/P (MAP) Pulse Ox O2 Delivery O2 Flow Rate FiO2 07/15/17 12:00 Room Air 07/15/17 11:21 37.0 103 18 149/84 (105) 95 07/15/17 08:00 Room Air 07/15/17 07:25 37.2 101 20 129/85 (100) 95 Physical Exam: GEN: obese, in no acute distress, alert and appropriate HEENT: NC/AT, normal sclerae, MMM CARDIO: reg rate, S1/2 heard without m/g/r LUNGS: CTA bilaterally, no crackles, rales or wheezes, good diaphragmatic excursion ABD: soft, diffusely TTP across abdomen hedy in upper quadrants, non-distended, no rebound or guarding, +BS EXTREMITY: RP and DP palpable 2+ bilat, no LE swelling or edema, extremities are warm and well-perfused NEURO: CN 2-12 grossly intact, no gross focal deficits. MUSC: 5/5 strength throughout, no gross focal deficits SKIN: warm and dry Laboratory Results: 07/14/17 20:37 Red Blood Count 4.90, Mean Corpuscular Volume 76.9, Mean Corpuscular Hemoglobin 24.9, Mean Corpuscular Hemoglobin Concent 32.4, Mean Platelet Volume 9.8, Neutrophils (%) (Auto) 57.2, Lymphocytes (%) (Auto) 31.3, Monocytes (%) (Auto) 11.0, Eosinophils (%) (Auto) 0.0, Basophils (%) (Auto) 0.4, Neutrophils # (Auto ) 3.83, Lymphocytes # (Auto) 2.10, Monocytes # (Auto) 0.74, Eosinophils # (Auto ) 0.00, Basophils # (Auto) 0.03 07/15/17 06:23 Test 07/14/17 20:32 07/14/17 20:37 07/15/17 01:40 07/15/17 01:45 Human Chorionic Gonadotropin, Qual NEG (NEG) White Blood Count 6.71 K/uL (4.8-10.8) Red Blood Count 4.90 M/uL (4.2-5.4) Hemoglobin 12.2 g/dL (12.0-16.0) Hematocrit 37.7 % (37-47) Mean Corpuscular Volume 76.9 fL (80-100) Mean Corpuscular Hemoglobin 24.9 pg (25-34) Mean Corpuscular Hemoglobin Concent 32.4 g/dl (32-36) Platelet Count 435 K/uL (130-400) Mean Platelet Volume 9.8 fL (7.4-10.4) Neutrophils (%) (Auto) 57.2 % Lymphocytes (%) (Auto) 31.3 % Monocytes (%) (Auto) 11.0 % Eosinophils (%) (Auto) 0.0 % Basophils (%) (Auto) 0.4 % Neutrophils # (Auto) 3.83 K/uL (1.4-6.5) Lymphocytes # (Auto) 2.10 K/uL (1.2-3.4) Monocytes # (Auto) 0.74 K/uL (0.11-0.59) Eosinophils # (Auto) 0.00 K/uL (0-0.5) Basophils # (Auto) 0.03 K/uL (0-0.2) RDW Standard Deviation 57.9 fL (36.4-46.3) RDW Coefficient of Variation 21.0 % (11.5-14.5) Immature Granulocyte % (Auto) 0.1 % Immature Granulocyte # (Auto) 0.01 K/uL (0.00-0.02) Anisocytosis PRESENT Magnesium Level 1.8 mg/dl (1.8-2.4) Lipase 156 U/L (73-393) Urine Color ORANGE Urine Appearance CLOUDY (CLEAR) Urine pH 5.5 (4.5-7.5) Urine Specific [place] 1.032 (1.000-1.030) Urine Protein 1+ (NEG) Urine Glucose (UA) NEG (NEG) Urine Ketones 3+ (NEG) Urine Occult Blood NEG (NEG) Urine Nitrite NEG (NEG) Urine Bilirubin NEG (NEG) Urine Urobilinogen NEG (NEG) Urine Leukocyte Esterase NEG (NEG) Urine WBC (Auto) 1-5 /hpf (0-5) Urine RBC (Auto) 0-4 /hpf (0-4) Urine Hyaline Casts (Auto) 0 /lpf (0-5) Urine Epithelial Cells (Auto) >30 /lpf (0-5) Urine Bacteria (Auto) NEG (NEG) Urine Pathogenic Casts /lpf (0) Urine Opiates Screen POS (NEG) Urine Methadone, Qualitative NEG (NEG) Urine Barbiturates NEG (NEG) Urine Phencyclidine (PCP) Level NEG (NEG) Ur Amphetamine/Methamphetamine NEG (NEG) MDMA (Ecstasy) Screen NEG (NEG) Urine Benzodiazepines Screen NEG (NEG) Urine Cocaine Metabolite NEG (NEG) Urine Marijuana (THC) NEG (NEG) Test 07/15/17 06:23 07/15/17 15:36 Prothrombin Time 11.2 SECONDS (9.0-12.0) Prothromb Time International Ratio 1.1 (0.9-1.1) Anion Gap 9.0 mmol/L (3-11) Est Creatinine Clear Calc Drug Dose 137.9 ml/min Estimated GFR () 105.8 Estimated GFR (Non- 91.3 BUN/Creatinine Ratio 7.8 (10-20) Calcium Level 8.3 mg/dl (8.5-10.1) Total Bilirubin 1.7 mg/dl (0.2-1) Direct Bilirubin 0.3 mg/dl (0-0.2) Aspartate Amino Transf (AST/SGOT) 54 U/L (15-37) Alanine Aminotransferase (ALT/SGPT) 42 U/L (12-78) Alkaline Phosphatase 90 U/L (45-117) Total Protein 7.1 gm/dl (6.4-8.2) Albumin 3.2 gm/dl (3.4-5.0) Globulin 3.9 gm/dl (2.5-4.0) Albumin/Globulin Ratio 0.8 (0.9-2) HIV (1&2) Ab and P24 Ag, 4th Gener NEG (NEG) Date/Time Source Procedure Growth Status 07/15/17 00:00 Stool C.difficile Toxin B Gene (PCR) - Final No C. difficile toxin B gene detected Complete 07/15/17 01:40 Vaginal Swab Fungal Smear - Final Resulted 07/15/17 01:40 Vaginal Swab Fungal Culture Pending Resulted Last 24 Hours Test 07/14/17 20:32 07/14/17 20:37 07/15/17 01:40 07/15/17 01:45 Human Chorionic Gonadotropin, Qual NEG White Blood Count 6.71 K/uL Red Blood Count 4.90 M/uL Hemoglobin 12.2 g/dL Hematocrit 37.7 % Mean Corpuscular Volume 76.9 fL Mean Corpuscular Hemoglobin 24.9 pg Mean Corpuscular Hemoglobin Concent 32.4 g/dl Platelet Count 435 K/uL Mean Platelet Volume 9.8 fL Neutrophils (%) (Auto) 57.2 % Lymphocytes (%) (Auto) 31.3 % Monocytes (%) (Auto) 11.0 % Eosinophils (%) (Auto) 0.0 % Basophils (%) (Auto) 0.4 % Neutrophils # (Auto) 3.83 K/uL Lymphocytes # (Auto) 2.10 K/uL Monocytes # (Auto) 0.74 K/uL Eosinophils # (Auto) 0.00 K/uL Basophils # (Auto) 0.03 K/uL RDW Standard Deviation 57.9 fL RDW Coefficient of Variation 21.0 % Immature Granulocyte % (Auto) 0.1 % Immature Granulocyte # (Auto) 0.01 K/uL Anisocytosis PRESENT Sodium Level 138 mmol/L Potassium Level 3.5 mmol/L Chloride Level 103 mmol/L Carbon Dioxide Level 24 mmol/L Anion Gap 10.0 mmol/L Blood Urea Nitrogen 7 mg/dl Creatinine 0.93 mg/dl Est Creatinine Clear Calc Drug Dose 129.0 ml/min Estimated GFR () 96.3 Estimated GFR (Non- 83.1 BUN/Creatinine Ratio 7.7 Random Glucose 83 mg/dl Calcium Level 9.1 mg/dl Magnesium Level 1.8 mg/dl Total Bilirubin 1.3 mg/dl Aspartate Amino Transf (AST/SGOT) 71 U/L Alanine Aminotransferase (ALT/SGPT) 54 U/L Alkaline Phosphatase 107 U/L Total Protein 8.6 gm/dl Albumin 4.0 gm/dl Globulin 4.6 gm/dl Albumin/Globulin Ratio 0.9 Lipase 156 U/L Urine Color ORANGE Urine Appearance CLOUDY Urine pH 5.5 Urine Specific [place] 1.032 Urine Protein 1+ Urine Glucose (UA) NEG Urine Ketones 3+ Urine Occult Blood NEG Urine Nitrite NEG Urine Bilirubin NEG Urine Urobilinogen NEG Urine Leukocyte Esterase NEG Urine WBC (Auto) 1-5 /hpf Urine RBC (Auto) 0-4 /hpf Urine Hyaline Casts (Auto) 0 /lpf Urine Epithelial Cells (Auto) >30 /lpf Urine Bacteria (Auto) NEG Urine Pathogenic Casts /lpf Urine Opiates Screen POS Urine Methadone, Qualitative NEG Urine Barbiturates NEG Urine Phencyclidine (PCP) Level NEG Ur Amphetamine/Methamphetamine NEG MDMA (Ecstasy) Screen NEG Urine Benzodiazepines Screen NEG Urine Cocaine Metabolite NEG Urine Marijuana (THC) NEG Test 07/15/17 06:23 Prothrombin Time 11.2 SECONDS Prothromb Time International Ratio 1.1 Sodium Level 139 mmol/L Potassium Level 3.2 mmol/L Chloride Level 106 mmol/L Carbon Dioxide Level 24 mmol/L Anion Gap 9.0 mmol/L Blood Urea Nitrogen 7 mg/dl Creatinine 0.86 mg/dl Est Creatinine Clear Calc Drug Dose 137.9 ml/min Estimated GFR () 105.8 Estimated GFR (Non- 91.3 BUN/Creatinine Ratio 7.8 Random Glucose 77 mg/dl Calcium Level 8.3 mg/dl Total Bilirubin 1.7 mg/dl Direct Bilirubin 0.3 mg/dl Aspartate Amino Transf (AST/SGOT) 54 U/L Alanine Aminotransferase (ALT/SGPT) 42 U/L Alkaline Phosphatase 90 U/L Total Protein 7.1 gm/dl Albumin 3.2 gm/dl Globulin 3.9 gm/dl Albumin/Globulin Ratio 0.8 Date/Time Source Procedure Growth Status 07/15/17 00:00 Stool C.difficile Toxin B Gene (PCR) - Final No C. difficile toxin B gene detected Complete 07/15/17 00:00 Stool Shiga Toxin Test Pending Received 07/15/17 00:00 Stool Stool Culture Pending Received 07/15/17 01:40 Vaginal Swab Fungal Smear - Final Resulted 07/15/17 01:40 Vaginal Swab Fungal Culture Pending Resulted 07/15/17 01:40 Genital Female Gram Stain - Final Resulted 07/15/17 01:40 Genital Female Genital Culture Pending Resulted Assessment & Plan 27 yo F with recurrent cyclic vomiting along with some loose stool and abdominal discomfort. She reports the abdominal discomfort has improved, and diarrhea and vomiting has resolved but she is still hesitant about any food. She was also reporting vaginal and rectal pain. She was given some diflucan today and already reports some improvement. 1. Nausea and vomiting: symptomatic treatment and IVF until reliably tolerating food. Lipase WNL but pt does have some epigastric tenderness present. Advance diet as tolerated. 2. Tachycardia-related to vomiting and abdominal discomfort, improved 3. Vaginal symptoms 2/2 poss yeast infection-Diflucan given. studies from pelvic exam still pending. 4. Situational hypertension-resolved. 5. Hypokalemia-replace and repeat in am. DVT proph- Consultants: GI Current Inpatient Medications: Current Inpatient Medications Medications (Trade) Dose Ordered Sig/Marlin Route Start Time Stop Time Status Last Admin Dose Admin Enoxaparin Sodium (Lovenox Inj) 30 mg Q24H SC 07/15/17 08:00 08/14/17 07:59 07/15/17 09:57 30 MG Sodium Chloride 1,000 ml @ 100 mls/hr Q10H IV 07/15/17 03:00 07/16/17 02:59 07/15/17 11:03 100 MLS/HR Acetaminophen (Tylenol Tab) 650 mg Q4H PRN PO 07/15/17 01:00 08/14/17 00:59 07/15/17 03:13 650 MG Polyethylene (Miralax Powder Packet) 17 gm DAILY PRN PO 07/15/17 01:00 08/14/17 00:59 Promethazine HCl 12.5 mg/Sodium Chloride 50.5 ml @ 204 mls/hr Q6H PRN IV 07/15/17 01:15 08/14/17 01:14 07/15/17 14:11 204 MLS/HR Hydroxyzine HCl (Vistaril Tab) 25 mg Q8 PRN PO 07/15/17 01:15 08/14/17 01:14 07/15/17 03:21 25 MG Dicyclomine HCl (Bentyl Cap) 10 mg BID PRN PO 07/15/17 03:15 08/14/17 03:14 07/15/17 05:44 10 MG Escitalopram Oxalate (Lexapro Tab) 10 mg DAILY PO 07/15/17 09:00 08/14/17 08:59 07/15/17 08:13 10 MG Lorazepam (Ativan Tab) 0.5 mg TID PRN PO 07/15/17 03:15 08/14/17 03:14 Albuterol (Ventolin Hfa Inhaler) 2 puffs QID PRN INH 07/15/17 03:15 08/14/17 03:14 Lansoprazole (Prevacid Solutab) 15 mg BID PO 07/15/17 09:00 08/14/17 08:59 07/15/17 08:13 15 MG Miscellaneous (Iv Fluids Completed) 1 ea PRN PRN N/A 07/15/17 04:15 07/15/18 04:14 Tramadol HCl (Ultram Tab) 50 mg Q4H PRN PO 07/15/17 09:30 08/14/17 09:29
[2017-07-16] MEDS: TRAMADOL HCL 50 MG TAB PO PRN (00:55)
[2017-07-16 04:09] VITALS: BP 125/82; PULSE 81; TEMP 36.8; O2SAT 98
[2017-07-16] MEDS: SODIUM CHLORIDE 0.9% 1000ML 1,000 ML IV SCH (06:06)
[2017-07-16 07:19] VITALS: BP_SYST 152; BP_SYST 161; BP_DIAS 103; BP_DIAS 118; PULSE 97; TEMP 36.9; O2SAT 99
[2017-07-16 07:20] LABS: CALCIUM 8.3 mg/dl (8.5-10.1); CREATININE 0.72 mg/dl (0.60-1.20); POTASSIUM 3.6 mmol/L (3.5-5.1)
[2017-07-16] MEDS: LANSOPRAZOLE SOLUTAB 15 MG PO SCH (07:35)
[2017-07-16] MEDS: ESCITALOPRAM OXALATE 10 MG TAB PO SCH (07:35)
[2017-07-16] MEDS ORDERED: ENOXAPARIN 40 MG/0.4 ML SYR SQ SCH (09:00)
[2017-07-16 09:09] VITALS: BP 139/90; PULSE 98
[2017-07-16 11:10] VITALS: BP 124/85; PULSE 91; TEMP 36.8; O2SAT 98
[2017-07-16] MEDS ORDERED: PROM25SU28 PR (12:40)
[2017-07-16] MEDS ORDERED: ULT50X PO (12:40)
--- NOTE | 2017-07-16 12:49 | Discharge Summary ---
Discharge Summary Date of Service Jul 16, 2017. Discharge Summary Admission Date: Jul 15, 2017 at 01:04 Discharge Date: Jul 16, 2017 Discharge Disposition: Home Principal Diagnosis: 1. Nausea and vomiting 2. Tachycardia resolved 3. Yeast infection 4. Situational hypertension resolved 5. Hypokalemia replaced 6. Chronic abdominal pain 7. Obesity Procedures: None. Vaccinations: None. Consultations: DOM-RITA Delgado Pending Studies/Follow-Up: see instructions below. Medication Reconciliation New Medications: Promethazine Hcl (Phenergan Suppository) 25 Mg Supp 25 MG AK Q4H PRN for nausea for 7 Days, #10 SUPP Tramadol HCl (Tramadol HCl) 50 Mg Tab 50 MG PO Q6H PRN for severe pain for 7 Days, #30 TAB Continued Medications: Albuterol Sulfate (Proair Respiclick) 108 Mcg/Act Aer 2 PUFF INH QID PRN for wheezing Dicyclomine Hcl (Bentyl) 10 Mg Cap 1 CAP PO BID PRN for abdominal cramping for 30 Days, #60 CAP 1 Refill Escitalopram (Lexapro) 10 Mg Tab 10 MG PO DAILY, TAB Lorazepam (Lorazepam) 0.5 Mg Tab 1 TAB PO TID PRN for Anxiety for 30 Days, #90 TAB Omeprazole (Cvs Omeprazole) 20 Mg Tab 40 MG PO BID Promethazine Hcl (Phenergan) 25 Mg Tab 25 MG PO Q4H PRN for Nausea, TAB Admission Information HPI (per Admitting provider): Patient is a 27 yo female who presents to the ER for complaints of intractable abdominal pain, nausea, vomiting, and perineal pain and burning. She reports that she was in the hospital recently for pneumonia and nausea/vomiting, and was fine for several days while at home but today has had severe vomiting to the point of not being able to keep down liquids including water, or anti- emetic promethazine. She reports having this type of N/V 1-2 days per week and states that it normally resolves after a day. She also reports that whenever she feels these symptoms she gets intense pruritis all over, and also complains of having pruritis and burning pain in her vaginal and perineal area. She states she has had an occasional frontal SALINAS with some photophobia, but no visual changes. She also notes having water stools that are occasionally yellowish green in color. She denies any known sick contacts or ingestion of anything unusual or undercooked. She was recently on levaquin which was completed for CAP. No other medication changes or abx noted. She was seen at her PCP's office today and was vomiting, and was encouraged to come to the ER if symptoms were not controlled. The patient reports having fear of pancreatitis as she has had it before and it has started with similar symptoms. Physical Exam (per Admitting): General Appearance: WD/WN, no apparent distress Head: normocephalic, atraumatic Eyes: PERRL, EOMI, sclerae normal, funduscopic exam normal ENT: hearing grossly normal Neck: supple, no JVD, trachea midline Respiratory/Chest: chest non-tender, lungs clear, normal breath sounds, no respiratory distress, no accessory muscle use Cardiovascular: regular rate, rhythm, no edema, no gallop, no JVD, no murmur Abdomen/GI: normal bowel sounds, soft, no organomegaly, + tenderness ( subjective tenderness diffusely but worse in epigastric) Genitourinary - Female: external genitalia normal, normal pelvic exam, normal cervix, + pertinent finding (could not palpate uterus and ovaries) Back: no CVA tenderness Extremities/Musculoskelatal: no calf tenderness, no pedal edema Neurologic/Psych: no motor/sensory deficits, alert, normal mood/affect, oriented x 3 Skin: normal color, warm/dry, no rash Hospital Course 27-year-old female who presents to the emergency room with complaints of persistent vomiting beginning earlier that day she reported vomiting at home refractory to as needed medications that she had she noted some abdominal pain however this was similar to her chronic abdominal pain. In the ER blood pressure was 124/73 respirations 20 pulse was 142 she was afebrile oxygenating 97% on room air. On physical exam lungs were clear to auscultation heart was tachycardic with a regular rhythm and no murmurs abdomen was diffusely tender with positive bowel sounds. Abdomen was soft without hernias and no signs of peritonitis. She was oriented 3 and had no focal neuromuscular deficits. Labs were unremarkable. Lipase was 156. She was treated with 3 L of normal saline, Ativan, promethazine, Benadryl, Dilaudid and Tylenol without success in controlling symptoms. She was unable to tolerate p.o. so she was admitted to the hospital under the medicine service. Gastroenterology was consulted. They recommended any further workup as the patient has had multiple imaging and endoscopic test without significant abnormalities in recent past in recent months. Symptoms were associated with possible uncontrolled anxiety with which she and her PCP were working on as an outpatient. She was thought to benefit from a rectal antiemetic and Phenergan suppositories were recommended as outpatient. Following day she was still unable to tolerate p.o. reliably and stayed another night. HIV was checked and negative. Vaginal exam that had been done in the ER revealed hanna and was treated with Diflucan with good result. Stool studies were negative for C. difficile or other infection. Chlamydia gonorrhea and Trichomonas vaginalis were not detected from vaginal studies. By day of discharge she was reliably tolerating p.o. mentating and ambulating at baseline and was afebrile and hemodynamically stable. She was sent home in stable condition with follow-up primary care provider. Total time spent on discharge = 60 minutes This includes examination of the patient, discharge planning, medication reconciliation, and communication with other providers. [place] [address] Discharge Medical Patient Name: Ashly Xie Unit Number: [id number] Date of : 1990 Patient Status: Admitted Inpatient (obs) Attending Doctor: Goldie Scott DO DI: Medical v4 Discharge Instructions Date of Service Jul 16, 2017. Admission Reason for Admission: Nausea And Vomiting, Tachycardia Discharge Discharge Diagnosis / Problem: Nausea and Vomiting-resolved. Discharge Goals Goal(s): Prevent Disease Progression Activity Recommendations Activity Limitations: per Instructions/Follow-up section . Instructions / Follow-Up Instructions / Follow-Up Please take all medications as instructed. You have been given a phenergan suppository to take as needed for nausea if you are unable to tolerate a pill. Please follow-up with the [facility] G[facility]enterology clinic as instructed. You have a hospital follow-up appointment with Dr. Mitchell on 07/20 @10:45am. You still have some labwork pending from your pelvic exam, and these results can be discussed with Dr. Mitchell in follow-up. It was a pleasure taking care of you! Call if you have any questions or problems. You can reach a [facility] hospitalist on duty at [facility] 24 hours a day by calling [phone]. Take care of yourself. DO [facility] Current Hospital Diet Patient's current hospital diet: Regular Diet Discharge Diet Recommended Diet: Regular Diet Procedures Procedures Performed: None. Pending Studies Studies pending at discharge: yes List of pending studies: Stool studies, Chlamydia, Gonorrhea, T. vaginalis studies pending at discharge. Medical Emergencies . Who to Call and When: Medical Emergencies: If at any time you feel your situation is an emergency, please call 911 immediately. . Non-Emergent Contact Non-Emergency issues call your: Primary Care Provider . . "Provider Documentation" section prepared by Goldie Scott. . VTE Core Measure Inpt VTE Proph given/why not?: Enoxaparin (Lovenox) [place] Drug Monitoring Program Search Results: patient reviewed within database, no issues identified Additional Copies To Johan Mitchell III, M.D.
[2017-07-16 13:28] VITALS: BP 124/85; PULSE 91; TEMP 36.8; O2SAT 98
== END 2017-07-16 14:49 | disposition home or self-care (01) ==
LOC: C.EDB 19:46 → C.MED 07-15 01:04 → ENRESERV 07-15 01:34
PROVIDERS: ADMIT Internal Medicine; ATTEND Hospitalist
DX: R11.0 Nausea (principal); R00.0 Tachycardia, unspecified; B37.9 Candidiasis, unspecified; R03.0 Elevated blood-pressure reading, without diagnosis of hypertension; E87.6 Hypokalemia; R10.9 Unspecified abdominal pain; G89.29 Other chronic pain; E66.01 Morbid (severe) obesity due to excess calories; Z98.890 Other specified postprocedural states; Z90.49 Acquired absence of other specified parts of digestive tract; Z88.6 Allergy status to analgesic agent; Z83.3 Family history of diabetes mellitus; Z84.1 Family history of disorders of kidney and ureter; Z82.49 Family history of ischemic heart disease and other diseases of the circulatory system

== ENCOUNTER 2018-06-02 14:08 | Inpatient (IN) ==
[2018-06-02] MEDS ORDERED: PROMETHAZINE HCL 12.5 MG in SODIUM CHLORIDE 0.9% 50 ML IV STA (14:34)
[2018-06-02] MEDS ORDERED: LORazepam 2 MG/4 ML VIAL IV STA (14:34)
[2018-06-02] MEDS ORDERED: MULTI-VITAMIN INFUSION 10 ML, THIAMINE HCL 100 MG, FOLIC ACID 1 MG in SODIUM CHLORIDE 0... IV SCH (14:45)
[2018-06-02] MEDS ORDERED: SODIUM CHLORIDE 0.9% 500 ML IV SCH (14:45)
--- NOTE | 2018-06-02 14:46 | Emergency Department Note ---
Entered by Marcelina Velasquez acting as a scribe for History of Present Illness General Chief complaint: Abdominal Pain Time Seen by Provider: 06/02/18 14:27 Source: patient History of Present Illness Provider complaint: abdominal pain Onset (ago): hour(s) (last night ) Location: abdomen Pain Consistency: + constant Quality: + other (pain) Associated symptoms: + denies other symptoms (denies diarrhea) and + nausea/ vomiting The patient is a 28 year old female who presents to the Emergency Room with complaints of constant abdominal pain beginning last night. The patient states that she has been drinking alcohol again. She states that she was released from [facility] on May 27 and states that she began drinking the day after she was released. She states that she has been drinking a bottle of moonshine and states that she last drank 2 days ago. The patient reports that she feels like she is going through withdrawal. She states that she has vomited but denies having diarrhea. She does report that she has had pancreatitis before. The patient states that she tried to take her medications this morning but was unable to secondary to vomiting. The patient was discharged April 27 with alcohol withdrawal and upper GI bleeding secondary to an esophageal ulcer. She has had several visits for similar complaints and problems. Home Medications Home Medications Medication Instructions Recorded Confirmed Type buspirone 10 mg PO BID 06/02/18 06/02/18 History docusate sodium 100 mg PO BID PRN 06/02/18 06/02/18 History doxepin 50 mg PO DAILY 06/02/18 06/02/18 History escitalopram oxalate 20 mg PO DAILY 06/02/18 06/02/18 History levetiracetam [Keppra] 500 mg PO BID 06/02/18 06/02/18 History lisinopril [Zestril] 5 mg PO DAILY 06/02/18 06/02/18 History metformin [Glucophage XR] 500 mg PO DAILY 06/02/18 06/02/18 History omeprazole 20 mg PO BID 06/02/18 06/02/18 History polyethylene glycol 3350 [Miralax] 17 g PO DAILY PRN 06/02/18 06/02/18 History sucralfate [Carafate] 1 g PO ACHS 06/02/18 06/02/18 History Allergies Allergy/AdvReac Type Severity Reaction Status Date / Time pantoprazole Allergy Intermediate "ITCHY ALL Verified 02/01/18 18:56 OVER" ketorolac Allergy Mild pruritus Verified 02/01/18 18:56 ondansetron Allergy Unknown lip Verified 02/01/18 18:56 tingling morphine AdvReac Intermediate ITCHINESS Verified 02/01/18 18:56 Past Med/Surg History Surgical History H/O esophagogastroduodenoscopy (Chronic) "August 2016-esophagitis and gastritis; October 11, 2016- normal" S/P cholecystectomy (Chronic) Social History marital status: Single Current Living Situation: Alone current occupation: [employer] employee Feels Safe at Home: Yes Smoking Status: Never smoker Second Hand Exposure: No Hx Alcohol Use: Yes Alcohol type: hard liquor Alcohol Intake Frequency: 3 or more drinks per day Hx Substance Use: No Beliefs That Will Affect Care: None Preferred Language: Sinhala Review of Systems See HPI for pertinent positives & negatives. and A total of 10 systems reviewed and were otherwise negative Physical Exam Vital Signs Vital Signs - 24 hr 06/02/18 14:25 06/02/18 14:31 06/02/18 15:56 Temperature 36.5 C Temperature Source Oral Sepsis Recent Fever Within 48 Hours No Sepsis New/Unexplained Change in Mental Status No Sepsis Action Taken by Nursing No Action Required Pulse Rate 158 H 132 H Pulse Rate [Apical] 114 H Pulse Rhythm Regular Pulse Strength Normal Respiratory Rate 20 34 H 20 Respiratory Effort / Characteristics Non-Labored Spontaneous Respiratory Depth Normal Respiratory Pattern Regular Blood Pressure 135/92 111/62 Blood Pressure [Left Arm] 135/81 Blood Pressure Mean 106 78 Blood Pressure Mean [Left Arm] 99 Pulse Oximetry 97 98 100 Oxygen Delivery Method Room Air Room Air Room Air GENERAL: Patient is in no acute distress. HEENT: No acute trauma, normocephalic atraumatic, mucous membranes moist, no nasal congestion, no scleral icterus. NECK: No stridor, no adenopathy, no meningismus, trachea is midline. LUNGS: Clear to auscultation bilaterally, no wheeze, no rhonchi, breath sounds equal. HEART: Tachycardic with a regular rhythm. No murmurs. ABDOMEN: Soft, diffusely moderately tender, bowel sounds positive, no hernias, no peritonitis. EXTREMITIES: No cyanosis or edema, full range of motion of all the joints without pain or difficulty, no signs for acute trauma. NEUROLOGIC: Oriented x 3, no acute motor or sensory deficits, no focal weakness. Extremity tremor noted. SKIN: No rash, no jaundice, no diaphoresis. Course 1429: Past medical records reviewed. The patient was evaluated in room D1B, and a complete history and physical examination were performed. 1540: I updated the patient. She is doing much better and verbalized agreement and understanding of the treatment plan. 1542: I discussed the patient's case with Domi Baca who will evaluate the patient for further management. Consultations Consultation #1: Domi Baca Time: 15:42 Administered Medications Ranitidine HCl 50 mg/ Dextrose 102 mls @ 200 mls/hr IV Q8H JOSE Stop: 07/02/18 14:44 Last Infusion: 06/02/18 16:05 Dose: 0 mls/hr Admin: 06/02/18 15:03 Dose: 200 mls/hr Discontinued Medications Hydromorphone HCl (Dilaudid) 0.5 mg IV NOW STA Stop: 06/02/18 15:38 Last Admin: 06/02/18 15:41 Dose: 0.5 mg Lorazepam (Ativan) 2 mg in 4 mls @ 4 mls/min IV NOW STA Stop: 06/02/18 14:35 Last Admin: 06/02/18 14:56 Dose: 4 mls/min Promethazine HCl 12.5 mg/ (Sodium Chloride) 50.5 mls @ 204 mls/hr IV NOW STA Stop: 06/02/18 14:48 Last Infusion: 06/02/18 15:25 Dose: 0 mls/hr Admin: 06/02/18 15:03 Dose: 204 mls/hr Sodium Chloride (Nss) 500 mls @ 999 mls/hr IV .Q31M JOSE Stop: 06/02/18 15:15 Last Infusion: 06/02/18 15:37 Dose: 0 mls/hr Admin: 06/02/18 14:56 Dose: 999 mls/hr Multivitamins 10 ml/ Thiamine HCl 100 mg/ Folic Acid 1 mg/Sodium Chloride 1, 011.2 mls @ 1,011.2 mls/hr IV .Q1H JOSE Stop: 06/02/18 15:44 Last Admin: 06/02/18 15:03 Dose: 1,011.2 mls/hr Medical Decision Making Differential Diagnosis The patient is a 28 year old female who presents to the ED with abdominal pain. Differential diagnosis includes alcohol withdrawal, alcohol abuse, dehydration, electrolyte imbalance, anemia, pancreatitis, pneumonia, UTI, and GI bleeding. Medical Records Attestation: I reviewed the patient's medical records. Home Medications Current Medication List: was personally reviewed by me Laboratory Data Attestation: I reviewed the patient's lab results. Result diagrams: 06/02/18 14:40 06/02/18 14:40 Lab Results 06/02/18 06/02/18 06/02/18 Range/Units 14:25 14:40 14:40 WBC (4.8-10.8) K/uL RBC (4.2-5.4) M/uL Hgb (12.0-16.0) g/dL Hct (37-47) % MCV (80-100) fL MCH (25-34) pg MCHC (32-36) g/dL RDW Std Deviation (36.4-46.3) fL RDW Coeff of Mario (11.5-14.5) % Plt Count (130-400) K/uL MPV (7.4-10.4) fL Immature Gran % (Auto) % Neut % (Auto) % Lymph % (Auto) % [place] % (Auto) % Eos % (Auto) % Baso % (Auto) % Immature Gran # (Auto) (0.00-0.02) K/uL Neut # (Auto) (1.4-6.5) K/uL Lymph # (Auto) (1.2-3.4) K/uL [place] # (Auto) (0.11-0.59) K/uL Eos # (Auto) (0-0.5) K/uL Baso # (Auto) (0-0.2) K/uL Hypochromasia Anisocytosis PT 10.7 (9.0-12.0) Seconds INR 1.1 (0.9-1.1) APTT 24.0 (21.0-31.0) Seconds PTT Ratio 0.9 Sodium (136-145) mmol/L Potassium (3.5-5.1) mmol/L Chloride (98-107) mmol/L Carbon Dioxide (21-32) mmol/L Anion Gap (3-11) BUN (7-18) mg/dl Creatinine (0.6-1.2) mg/dl Est Cr Clr Drug Dosing ml/min Est GFR ( Amer) Est GFR (Non-Af Amer) BUN/Creatinine Ratio (10-20) Glucose (70-99) mg/dl Calcium (8.5-10.1) mg/dl Magnesium (1.8-2.4) mg/dl Total Bilirubin (0.2-1) mg/dl AST (15-37) U/L ALT (12-78) U/L Alkaline Phosphatase (45-117) U/L Troponin I (0-0.045) ng/ml Total Protein (6.4-8.2) gm/dl Albumin (3.4-5.0) gm/dl Globulin (2.5-4.0) gm/dl Albumin/Globulin Ratio (0.9-2) Lipase (73-393) U/L TSH (0.300-4.500) uIu/ml HCG, Qual (Negative) Urine Color Yellow Urine Appearance Cloudy H (Clear) Urine pH 5.0 (4.5-7.5) Ur Specific [place] 1.028 (1.000-1.030) Urine Protein 3+ H (Negative) Urine Glucose (UA) Negative (Negative) Urine Ketones 4+ H (Negative) Urine Blood 2+ H (Negative) Urine Nitrite Negative (Negative) Urine Bilirubin Negative (Negative) Urine Urobilinogen Negative (Negative) Ur Leukocyte Esterase Negative (Negative) Urine WBC (Auto) 1-5 (0-5) /hpf Urine RBC (Auto) 5-10 H (0-4) /hpf U Hyaline Cast (Auto) 1-5 (0-5) /lpf U Epithel Cells (Auto) >30 H (0-5) /lpf Urine Bacteria (Auto) Negative (Negative) Granular Casts 1-5 H (0) /lpf Ethyl Alcohol mg/dL 32.0 H (0-3) mg/dl 06/02/18 06/02/18 06/02/18 Range/Units 14:40 14:40 14:40 WBC 8.11 (4.8-10.8) K/uL RBC 4.32 (4.2-5.4) M/uL Hgb 10.2 L (12.0-16.0) g/dL Hct 32.8 L (37-47) % MCV 75.9 L (80-100) fL MCH 23.6 L (25-34) pg MCHC 31.1 L (32-36) g/dL RDW Std Deviation 59.6 H (36.4-46.3) fL RDW Coeff of Mario 21.7 H (11.5-14.5) % Plt Count 402 H (130-400) K/uL MPV 9.8 (7.4-10.4) fL Immature Gran % (Auto) 0.2 % Neut % (Auto) 52.5 % Lymph % (Auto) 38.1 % [place] % (Auto) 8.6 % Eos % (Auto) 0.1 % Baso % (Auto) 0.5 % Immature Gran # (Auto) 0.02 (0.00-0.02) K/uL Neut # (Auto) 4.25 (1.4-6.5) K/uL Lymph # (Auto) 3.09 (1.2-3.4) K/uL [place] # (Auto) 0.70 H (0.11-0.59) K/uL Eos # (Auto) 0.01 (0-0.5) K/uL Baso # (Auto) 0.04 (0-0.2) K/uL Hypochromasia Present Anisocytosis Present PT (9.0-12.0) Seconds INR (0.9-1.1) APTT (21.0-31.0) Seconds PTT Ratio Sodium 136 (136-145) mmol/L Potassium 3.8 (3.5-5.1) mmol/L Chloride 106 (98-107) mmol/L Carbon Dioxide 12 L (21-32) mmol/L Anion Gap 18.0 H (3-11) BUN 9 (7-18) mg/dl Creatinine 0.89 (0.6-1.2) mg/dl Est Cr Clr Drug Dosing 124.7 ml/min Est GFR ( Amer) 100.8 Est GFR (Non-Af Amer) 87.0 BUN/Creatinine Ratio 9.7 L (10-20) Glucose 104 H (70-99) mg/dl Calcium 8.2 L (8.5-10.1) mg/dl Magnesium 2.0 (1.8-2.4) mg/dl Total Bilirubin 0.9 (0.2-1) mg/dl AST 45 H (15-37) U/L ALT 52 (12-78) U/L Alkaline Phosphatase 99 (45-117) U/L Troponin I < 0.015 (0-0.045) ng/ml Total Protein 9.0 H (6.4-8.2) gm/dl Albumin 3.8 (3.4-5.0) gm/dl Globulin 5.2 H (2.5-4.0) gm/dl Albumin/Globulin Ratio 0.7 L (0.9-2) Lipase 104 (73-393) U/L TSH 2.320 (0.300-4.500) uIu/ml HCG, Qual Negative (Negative) Urine Color Urine Appearance (Clear) Urine pH (4.5-7.5) Ur Specific [place] (1.000-1.030) Urine Protein (Negative) Urine Glucose (UA) (Negative) Urine Ketones (Negative) Urine Blood (Negative) Urine Nitrite (Negative) Urine Bilirubin (Negative) Urine Urobilinogen (Negative) Ur Leukocyte Esterase (Negative) Urine WBC (Auto) (0-5) /hpf Urine RBC (Auto) (0-4) /hpf U Hyaline Cast (Auto) (0-5) /lpf U Epithel Cells (Auto) (0-5) /lpf Urine Bacteria (Auto) (Negative) Granular Casts (0) /lpf Ethyl Alcohol mg/dL (0-3) mg/dl Imaging Data Radiologist's Impression: Radiology results as stated below per my review and the radiologist's interpretation: XR chest 1V portable CLINICAL HISTORY: weakness COMPARISON STUDY: 04/24/2018 FINDINGS: The cardiac and mediastinal contours are normal. There is no evidence of focal pulmonary consolidation. There is no evidence of failure. No pleural effusions are visualized.[ IMPRESSION: No active disease in the chest. Electronically signed by: Jelani Escamilla M.D. 06/02/2018 3:08 PM ECG Data Attestation: I personally reviewed and interpreted this ECG as follows: Indication: abdominal pain Rate (beats per minute): 138 Rhythm: sinus tachycardia Findings: no PVC and no ST elevation Blood Pressure Blood Pressure Findings: Normal blood pressure MDM Narrative There is no leukocytosis. The patient is anemic but this is baseline looking back at previous testing. No coagulopathy. Renal panel testing does not show renal failure, she was slightly acidotic with a CO2 of 12. No evidence for hepatitis or pancreatitis. No evidence for thyroid dysfunction. testing was negative. EKG shows a sinus tachycardia, no acute ischemia. Cardiac enzyme testing x1 is not consistent with acute cardiac injury. Chest film does not show pneumonia, CHF or mediastinal widening. Urinalysis shows ketones and evidence for dehydration, no signs of infection. Alcohol level was slightly elevated at 32. The patient presents in alcohol withdrawal. She was aggressively managed. She has had symptoms similar to this in the past. The patient was given IV saline. She was ordered for IV saline mixed with multivitamins, thiamine and folate. She received IV Ativan, IV Phenergan, IV Dilaudid. She was given IV Zantac. With the above treatment, the patient's heart rate has decreased. She does look more comfortable and less agitated. There has been no further vomiting. I do think a hospital stay is warranted. I did speak to the patient and case management. The on-call hospitalist was consulted. Impression & Plan Alcohol withdrawal, Vomiting, Dehydration, Tachycardia Critical Care Time I have personally spent greater than 35 minutes of critical care time in the direct management of this patient. This includes bedside care, interpretation of diagnostic studies, and testing, discussion with consultants, patient, and family members, and other required patient management activities. This 35 minutes is in excess of all separately billable procedures. Critical Care Time: Yes Total Critical Care Time: 35 Discharge Plan Visit Data Chief Complaint: Abdominal Pain ED Provider: Mathew Murdock Discharge Problem: Alcohol withdrawal, Vomiting, Dehydration, Tachycardia Patient Disposition: Being Evaluated by Hospitalist Forms Stand Alone Forms: Call Back Authorization, My [facility] Prescriptions Prescriptions: No Action doxepin 50 mg capsule 50 mg PO DAILY RF: 0 polyethylene glycol 3350 [Miralax] 17 gram Powder In Packet 17 g PO DAILY PRN (Reason: Constipation) RF: 0 levetiracetam [Keppra] 500 mg tablet 500 mg PO BID RF: 0 sucralfate [Carafate] 1 gram tablet 1 g PO ACHS RF: 0 buspirone 10 mg tablet 10 mg PO BID RF: 0 omeprazole 20 mg capsule,delayed release(DR/EC) 20 mg PO BID RF: 0 lisinopril [Zestril] 5 mg tablet 5 mg PO DAILY RF: 0 metformin [Glucophage XR] 500 mg tablet extended release 24 hr 500 mg PO DAILY RF: 0 docusate sodium 100 mg Tablet 100 mg PO BID PRN (Reason: Constipation) RF: 0 escitalopram oxalate 20 mg tablet 20 mg PO DAILY RF: 0 Referrals Referrals: Logan Tsai [Primary Care Provider] - The scribe's documentation has been prepared under my direction and personally reviewed by me in its entirety. I confirm that the note above accurately reflects all work, treatment, procedures, and medical decision making performed by me.
[2018-06-02 14:55] LABS: Appearance Urine Cloudy (Clear); Bacteria Urine Automated Negative (Negative); Bilirubin Urine Negative (Negative); Color Urine Yellow; Epithelial Cell Urine Auto >30 /lpf (0-5); Glucose Urine UA Negative (Negative); Leukocyte Esterase Urine Negative (Negative); Nitrite Urine Negative (Negative); Protein Urine 3+ (Negative); Specific Gravity Urine 1.028 (1.000-1.030); Urobilinogen Urine Negative (Negative)
[2018-06-02 14:56] LABS: Basophils # (auto) 0.04 K/uL (0-0.2); Basophils % (auto) 0.5 %; Eosinophils # (auto) 0.01 K/uL (0-0.5); Eosinophils % (auto) 0.1 %; Hematocrit (blood only) 32.8 % (37-47); Hemoglobin 10.2 g/dL (12.0-16.0); Immature Granulocytes # (auto) 0.02 K/uL (0.00-0.02); Immature Granulocytes % (auto) 0.2 %; Lymphocytes # (auto) 3.09 K/uL (1.2-3.4); Lymphocytes % (auto) 38.1 %; Mean Corpuscular Hgb Conc 31.1 g/dL (32-36); Mean Corpuscular Volume 75.9 fL (80-100); Mean Platelet Volume 9.8 fL (7.4-10.4); Monocytes % (auto) 8.6 %; Neutrophils # (auto) 4.25 K/uL (1.4-6.5); Neutrophils % (auto) 52.5 %; Platelet Count 402 K/uL (130-400); RDW Coefficient of Variation 21.7 % (11.5-14.5); RDW Standard Deviation 59.6 fL (36.4-46.3); Red Blood Count 4.32 M/uL (4.2-5.4); White Blood Count 8.11 K/uL (4.8-10.8)
[2018-06-02 14:59] LABS: Ketones Urine 4+ (Negative)
[2018-06-02 15:07] LABS: INR 1.1 (0.9-1.1); Partial Thromboplastin Ratio 0.9; Pregnancy Test, Serum Negative (Negative); Prothrombin Time 10.7 Seconds (9.0-12.0)
--- NOTE | 2018-06-02 15:09 | XRay Report ---
XR chest 1V portable CLINICAL HISTORY: weakness COMPARISON STUDY: 04/24/2018 FINDINGS: The cardiac and mediastinal contours are normal. There is no evidence of focal pulmonary co nsolidation. There is no evidence of failure. No pleural effusions are visualized.[ IMPRESSION: No active disease in the chest. Electronically signed by: Jelani Escamilla M.D. 06/02/2018 3:08 PM
[2018-06-02 15:11] LABS: Alanine Aminotransferase 52 U/L (12-78); Albumin Level 3.8 gm/dl (3.4-5.0); Aspartate Aminotransferase 45 U/L (15-37); BUN Creatinine Ratio 9.7 (10-20); Blood Urea Nitrogen 9 mg/dl (7-18); Calcium 8.2 mg/dl (8.5-10.1); Carbon Dioxide 12 mmol/L (21-32); Chloride 106 mmol/L (98-107); Creatinine Clr Calc Pharmacy 124.7 ml/min; Est GFR (African American) 100.8; Glucose 104 mg/dl (70-99); Potassium 3.8 mmol/L (3.5-5.1); Sodium 136 mmol/L (136-145)
[2018-06-02 15:22] LABS: Albumin Globulin Ratio 0.7 (0.9-2); Alkaline Phosphatase 99 U/L (45-117); Bilirubin,Total 0.9 mg/dl (0.2-1); Globulin 5.2 gm/dl (2.5-4.0); Troponin I < 0.015 ng/ml (0-0.045)
[2018-06-02 15:23] LABS: Anisocytosis Present; Hypochromasia Present
[2018-06-02] MEDS ORDERED: HYDROmorphone INJ 0.5 MG/0.5 ML SYR IV STA (15:37)
--- NOTE | 2018-06-02 17:12 | History & Physical Report ---
Date of Service June 02, 2018 Assessment & Plan (1) Abdominal pain: Initial lab workup revealed WBC 8.1, stable hemoglobin hematocrit of 10.2 and 32.8, platelet 402, BMP consistent with metabolic acidosis, anion gap 18, CO2 12 , sodium 136, potassium 3.8, BUN 9, creatinine 0.89, mild elevated AST at 45, lipase and TSH within normal limits. Urinalysis was positive for proteinuria and ketonuria. Ethyl alcohol elevated at 32. Chest x-ray was negative for acute abnormality. DDX of abdominal pain but not limited to: PUD, gastritis, pancreatitis, enteritis, C. difficile, etoh withdrawl -Admit to telemetry -CT scan abd/pelvis to r/o further etiology of abdominal pain -NPO except sips and chips -IVF NS 125cc/hr x 2 L and re eval fluid needs -repeat Cbc, CMP, amylase, lipase in a.m. -Iv hydromorphone 1mg q4hr prn pain -IV protonix bid until tolerating PO -IV zofran for prn n/v (2) Nausea and vomiting: -plan as above (3) Alcohol withdrawal: -Gabapentin per withdrawl protocol -lorazepam per withdrawl protocol -IV Thiamine 100mg daily -folic acid 1mg daily -initiated on keppra 500mg bid while in rehab, continue for Sz prophlyaxis (4) Metabolic acidosis: -unknown etiology at this time -? secondary to ETOH consumption, ketoacidosis -pt denies ingestion of any toxic chemicals other than store bought ETOH -IVF NS 125cc/hr -repeat CMP in a.m, monitor anion gap (5) Chronic anemia: -microcytic, hypochromic -H/H stable at 10.2 and 32.8 -monitor cbc (6) Diabetes mellitus, type II: -A1C 5.5 on 04/26/18 -hold metformin -novolog sliding scale per protocol while inpatient -if consistently with BGM >160-180 add lantus coverage per protocol (7) HTN (hypertension): -continue lisinopril daily with parameters -monitor (8) Morbid obesity: -encourage diet and lifestyle modifications (9) DVT prophylaxis: -SCDS Disposition: TBD, case management consulted, may require further ETOH rehab vs outpatient support Follow up: PCP Dr. Tsai upon discharge Patient was seen in collaboration with Dr. Silvestre, please see addendum Starting 06/03/18 patient will be under the care of Dr. Lawrence Vences History of Present Illness Chief Complaint: abdominal pain, n/v x 2 days. Primary Care Provider: Logan Tsai This is a 28-year-old -[place] female who has a significant past medical history of alcohol abuse, T2 DM, HTN, mood disorder, chronic anemia, fatty liver, hx of cdiff 01/2018 who presents to [facility] secondary to abdominal pain, nausea, vomiting times 2 days. Patient was last admitted to [facility] 04/24 to 04/27/18 secondary to hematemesis. At that time she underwent EGD and was found to have nonbleeding esophageal ulcer, prior MWT. Was recommended PPI twice daily as well as Carafate 4 times daily. Unfortunately at that time due to patient's significant alcohol abuse she was discharged to [facility] alcohol rehab in [place]. She was discharged on 05/26/18, was abstinent of alcohol for 2 days when she resumed heavy hard liquor, 750 mL/day of vodka and moonshine. This lasted for a few days when she decided to abruptly stop. Approximately 1 day after stopping patient developed diffuse abdominal pain, comes and goes, sharp, rated 9 out of 10. Proceeded with nausea and yellow emesis. Further complains of palpitation, fast heartbeat, diaphoresis and tremors. Denies fever , chills, sweats, lightheadedness, dizziness, chest pain, shortness of breath, diarrhea, melena, hematochezia. Overall poor appetite past 2 days. No current sick contacts. She did have 1 episode of fall, in which she hit back of head, denies headache, visual disturbance. Allergies Allergy/AdvReac Type Severity Reaction Status Date / Time pantoprazole Allergy Intermediate "ITCHY ALL Verified 02/01/18 18:56 OVER" ketorolac Allergy Mild pruritus Verified 02/01/18 18:56 ondansetron Allergy Unknown lip Verified 02/01/18 18:56 tingling morphine AdvReac Intermediate ITCHINESS Verified 02/01/18 18:56 Home Medications Home Medications Medication Instructions Recorded Confirmed Type buspirone 10 mg PO BID 06/02/18 06/02/18 History docusate sodium 100 mg PO BID PRN 06/02/18 06/02/18 History escitalopram oxalate 20 mg PO DAILY 06/02/18 06/02/18 History levetiracetam [Keppra] 500 mg PO BID 06/02/18 06/02/18 History lisinopril [Zestril] 5 mg PO DAILY 06/02/18 06/02/18 History metformin [Glucophage XR] 500 mg PO DAILY 06/02/18 06/02/18 History omeprazole 20 mg PO BID 06/02/18 06/02/18 History polyethylene glycol 3350 [Miralax] 17 g PO DAILY PRN 06/02/18 06/02/18 History sucralfate [Carafate] 1 g PO ACHS 06/02/18 06/02/18 History Past Med/Surg History Medical History Chronic anemia Diabetes mellitus, type II (Chronic) Abnormal LFTs (liver function tests) (Chronic) Hx of pancreatitis (Chronic) Alcohol abuse (Chronic) Uterine fibroid (Chronic) Hepatic steatosis (Chronic) Morbid obesity (Chronic) Abdominal pain Double vision Nausea and vomiting Weakness Family History Father T2DM (type 2 diabetes mellitus) Mother No problems noted. Other FHx: alcoholism No pertinent family history Social History marital status: Single Current Living Situation: Alone current occupation: [employer] employee Other Information That Helps Us Care for You: No Feels Safe at Home: Yes Safety Concerns: Feels Safe At This Time Smoking Status: Never smoker Second Hand Exposure: No Hx Alcohol Use: Yes (recent went through Rehab 04/27/18-05/28/18) Alcohol type: hard liquor Alcohol Intake Frequency: 3 or more drinks per day Alcohol Intake Frequency Comment: 750ml vodka; [place] daily Hx Substance Use: No Beliefs That Will Affect Care: None Preferred Language: Slovenian Communication Ability: Effective 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: No Review of Systems All systems reviewed & are unremarkable except as noted in HPI & below Physical Exam 2 Vital Signs (Past 24 Hours): Last Vital Signs Temp 36.5 C 06/02/18 14:25 Pulse 114 H 06/02/18 15:56 Resp 20 06/02/18 15:56 BP 135/81 06/02/18 15:56 Pulse Ox 100 06/02/18 15:56 Physical Exam: Gen: Morbidly obese, young female, NAD, sitting up in bed, flat affected but conversing easily Head: Normocephalic, Atraumatic Eyes: Sclera normal, no conjunctival injection, PERRLA, EOMI ENT: Gross hearing intact, normal pharynx, mucous membranes dry Neck: supple, no adenopathy, No JVD, no bruit, Resp: Clear to auscultation b/l, no wheeze, rales, rhonchi. 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 Extremities: No edema bilaterally Skin: warm, moist, no rash, mild turgor, cap refill < 2sec Neuro: Alert and oriented x 3, speech normal, flat affect with crying throughout visit, cran nerve 2-12 intact grossly : deferred Results & Data Laboratory Results Short CBC 06/02/18 Range/Units 14:40 WBC 8.11 (4.8-10.8) K/uL Hgb 10.2 L (12.0-16.0) g/dL Hct 32.8 L (37-47) % Plt Count 402 H (130-400) K/uL BMP 06/02/18 14:40 Sodium 136 Potassium 3.8 Chloride 106 Carbon Dioxide 12 L BUN 9 Creatinine 0.89 Glucose 104 H Calcium 8.2 L Cardiac Enzymes 06/02/18 Range/Units 14:40 Troponin I < 0.015 (0-0.045) ng/ml Liver Function 06/02/18 Range/Units 14:40 Total Bilirubin 0.9 (0.2-1) mg/dl AST 45 H (15-37) U/L ALT 52 (12-78) U/L Alkaline Phosphatase 99 (45-117) U/L Albumin 3.8 (3.4-5.0) gm/dl Urine 06/02/18 Range/Units 14:25 Urine Color Yellow Urine Appearance Cloudy H (Clear) Urine pH 5.0 (4.5-7.5) Ur Specific Dexter 1.028 (1.000-1.030) Urine Protein 3+ H (Negative) Urine Glucose (UA) Negative (Negative) Diagnostic Findings CXR: IMPRESSION: No active disease in the chest. ECG Rate (beats per minute): 138 Rhythm: sinus tachycardia Additional Comments: QTC 451ms Code Status & VTE Plan Code Status Full Code VTE Prophylaxis Plan VTE Prophylaxis will be ordered: Yes Supervising Physician Co-Signing Physician Notes HISTORY: Record reviewed. Patient interviewed and examined. Care coordinated with Domi Ocasio PA-C. Please refer to her documentation for patient's history. Briefly, 28 YO F with history of alcoholism. Recently went through rehab, but relapsed. Last drink 2 days ago. Presented to ED with nausea and vomiting (without hematemesis) and diffuse abdominal pain. EXAM: General- no distress Eyes- anicteric Lungs- clear to auscultation; no respiratory distress Cardiovascular- RRR, tachy; no gallop; no JVD; no pretibial edema Abdomen- + bowel sounds, diffuse moderate tenderness without rebound or guarding. Extremities- no cyanosis; no calf tenderness Neuro- alert, oriented; no asterixis Skin- warm & dry DATA: Hemoglobin 10.2, white count 8110, platelet count 402,000. INR 1.1, PTT 24. Sodium 136, potassium 3.8, chloride 106, CO2 12, BUN 9, creatinine 0.89, glucose 104. Total bilirubin 0.9, AST 45, ALT 52, alkaline phosphatase 99, lipase 104. Beta hCG negative. Urinalysis demonstrated 4+ ketones, negative leukocyte esterase, 1-5 WBCs, 5-10 RBCs, no bacteria, 1-5 granular casts. Other lab studies as noted. Chest x-ray was unremarkable. CT of abdomen and pelvis did not show any acute intra-abdominal process. ASSESSMENT AND PLAN: Alcoholism with alcohol withdrawal. Alcohol withdrawal protocol initiated. Ongoing counseling/rehab should be addressed once patient is feeling better. Etiology of abdominal pain uncertain. History of pancreatitis, but no evidence at this time (lipase normal, no apparent inflammation of pancreas on CT). History of C. difficile colitis, but no bowel wall thickening on today's CT. Status post cholecystectomy. No evidence of urinary calculi. Symptomatic management at this time. May need further evaluation/consultation if symptoms persist or worsen. Please refer to VALERIE Ocasio's documentation for discussion of other issues. _ (1) Alcohol withdrawal Complication of substance-induced condition: with unspecified complication Qualified Code(s): F10.239 - Alcohol dependence with withdrawal, unspecified
[2018-06-02] MEDS ORDERED: OPTIRAY 320 125ml IV PRN (18:34)
--- NOTE | 2018-06-02 18:50 | CT Scan Report ---
ABDOMEN AND PELVIS CT WITH IV CONTRAST CT DOSE: 1799.21 mGy.cm HISTORY: Mid abdominal pain TECHNIQUE: Multiaxial CT images of the abdomen and pelvis were performed following the use of intrave nous contrast. A dose lowering technique was utilized adhering to the principles of ALARA. COMPARISON STUDY: Abdomen and pelvis CT 04/09/2018. FINDINGS: The lung bases are clear. No pneumoperitoneum. No pneumatosis. No fractures within the visu alized osseous structures. Hepatic steatosis. Cholecystectomy. The spleen, adrenal glands, and right kidney are unremarkable. No hydronephrosis. Stable 6 mm hypodense lesion within the left kidney. This is technically too small to characterize. No retroperitoneal lymphadenopathy. There is a left circum aortic renal vein. An intrauterine device is noted and is unchanged in position. There are 2 lobular subserosal nodules within the uterus with the largest measuring 2.5 cm. These likely represent fibroi ds. The ovaries are unremarkable. No significant pelvic free fluid. Normal bladder. The pancreas enha nces normally. No definite peripancreatic inflammatory change. No bowel wall thickening or obstructio n. Normal appendix. IMPRESSION: 1. No bowel wall thickening or obstruction. 2. Normal appendix. 3. No CT evidence for acute pancreatitis. 4. Cholecystectomy. 5. Hepatic steatosis. Electronically signed by: Gaston Kennedy M.D. 06/02/2018 6:47 PM
[2018-06-02] MEDS ORDERED: ONDANSETRON INJ 2 MG/ML 2 ML VIAL IV PRN (18:53)
[2018-06-02] MEDS ORDERED: ALUMINUM/MAGNESIUM SUSP 30 ML UDC PO PRN (18:53)
[2018-06-02] MEDS ORDERED: ATIVAN IV ALCOHOL WITHDRAWL IV SCH (18:53)
[2018-06-02] MEDS ORDERED: MAGNESIUM HYDROXIDE SUSP 30 ML UDC PO PRN (18:53)
[2018-06-02] MEDS ORDERED: GLUCOSE 40% GEL 15 GM TUBE PO PRN (18:53)
[2018-06-02] MEDS ORDERED: GLUCAGON FOR INJ 1 MG VIAL SQ PRN (18:53)
[2018-06-02] MEDS ORDERED: CARBOHYDRATES FOR HYPOGLYCEMIA PO PRN (18:53)
[2018-06-02] MEDS ORDERED: DEXTROSE 50% 50 ML SYRINGE IV PRN (18:53)
[2018-06-02] MEDS ORDERED: LORazepam 3 MG/6 ML VIAL IV PRN (18:53)
[2018-06-02] MEDS ORDERED: LORazepam 2 MG/4 ML VIAL IV PRN (18:53)
[2018-06-02] MEDS ORDERED: GABAPENTIN 1200MG ALCOHOL WITHDRAWAL LOAD PO STA (18:53)
[2018-06-02] MEDS ORDERED: POLYETHYLENE (MIRALAX) 17 GM PACK PO PRN (18:53)
[2018-06-02] MEDS ORDERED: GLUCOSE 10 TABS/TUBE PO PRN (18:53)
[2018-06-02] MEDS ORDERED: GABAPENTIN 600 MG TAB PO SCH (20:00)
[2018-06-02] MEDS: levETIRAcetam 500 MG TAB PO SCH (20:36)
[2018-06-02] MEDS: SUCRALFATE 1 GM TAB PO SCH (20:37)
[2018-06-02] MEDS: HYDROmorphone INJ 1 MG/ML SYRINGE IV PRN (20:38)
[2018-06-02] MEDS ORDERED: PANTOprazole 40 MG in SYRINGE 0 ML IV SCH (21:00)
[2018-06-02] MEDS ORDERED: INSULIN ASPART 100 UNITS/ML 3 ML PEN SC SCH (21:00)
[2018-06-02] MEDS ORDERED: Nursing to Pharmacy Communication ONE (21:39)
[2018-06-02] MEDS: LORazepam 1 MG/2 ML VIAL IV PRN (23:45)
[2018-06-03] MEDS: PROMETHAZINE HCL 12.5 MG in SODIUM CHLORIDE 0.9% 50 ML IV PRN ×2 (00:14→14:22)
[2018-06-03] MEDS: INSULIN ASPART 100 UNITS/ML 3 ML PEN SC SCH ×5 (00:29→20:32)
[2018-06-03] MEDS: HYDROmorphone INJ 1 MG/ML SYRINGE IV PRN ×3 (01:10→10:53)
[2018-06-03] MEDS: GABAPENTIN 600 MG TAB PO SCH ×3 (05:34→22:09)
[2018-06-03 06:44] LABS: Basophils # (auto) 0.04 K/uL (0-0.2); Basophils % (auto) 0.5 %; Eosinophils # (auto) 0.05 K/uL (0-0.5); Eosinophils % (auto) 0.6 %; Hematocrit (blood only) 32.2 % (37-47); Hemoglobin 9.8 g/dL (12.0-16.0); Immature Granulocytes # (auto) 0.02 K/uL (0.00-0.02); Immature Granulocytes % (auto) 0.2 %; Lymphocytes # (auto) 3.46 K/uL (1.2-3.4); Lymphocytes % (auto) 39.5 %; Mean Corpuscular Hgb Conc 30.4 g/dL (32-36); Mean Platelet Volume 9.7 fL (7.4-10.4); Monocytes # (auto) 0.87 K/uL (0.11-0.59); Monocytes % (auto) 9.9 %; Neutrophils # (auto) 4.31 K/uL (1.4-6.5); Neutrophils % (auto) 49.3 %; Platelet Count 360 K/uL (130-400); RDW Coefficient of Variation 21.5 % (11.5-14.5); RDW Standard Deviation 59.1 fL (36.4-46.3); Red Blood Count 4.18 M/uL (4.2-5.4); White Blood Count 8.75 K/uL (4.8-10.8)
[2018-06-03 07:07] LABS: Anisocytosis Present; Hypochromasia Present
[2018-06-03] MEDS: LORazepam 1 MG/2 ML VIAL IV PRN ×2 (07:13→19:45)
[2018-06-03 07:27] LABS: Albumin Level 3.6 gm/dl (3.4-5.0); Calcium 8.4 mg/dl (8.5-10.1); Creatinine Clr Calc Pharmacy 149.4 ml/min; Est GFR (Non-African American) 108.7; Potassium 4.3 mmol/L (3.5-5.1)
[2018-06-03 07:38] LABS: Albumin Globulin Ratio 0.7 (0.9-2); Bilirubin,Total 1.4 mg/dl (0.2-1); Globulin 5.3 gm/dl (2.5-4.0); Total Protein 8.9 gm/dl (6.4-8.2)
[2018-06-03] MEDS: ESCITALOPRAM OXALATE 20 MG TAB PO SCH (08:36)
[2018-06-03] MEDS: SUCRALFATE 1 GM TAB PO SCH ×4 (08:36→19:45)
[2018-06-03] MEDS: LISINOPRIL 5 MG TAB PO SCH (08:36)
[2018-06-03] MEDS: levETIRAcetam 500 MG TAB PO SCH ×2 (08:36→19:47)
[2018-06-03] MEDS: FOLIC ACID 1 MG TAB PO SCH (08:37)
[2018-06-03] MEDS: THIAMINE HCL 100 MG TAB PO SCH (08:37)
[2018-06-03] MEDS ORDERED: THIAMINE HCL 100 MG in SYRINGE 9 ML IV SCH (09:00)
--- NOTE | 2018-06-03 11:09 | Hospitalist Progress Note ---
Date of Service June 03, 2018 Assessment & Plan (1) Abdominal pain: Initial lab workup revealed WBC 8.1, stable hemoglobin hematocrit of 10.2 and 32.8, platelet 402, BMP consistent with metabolic acidosis, anion gap 18, CO2 12, sodium 136, potassium 3.8, BUN 9, creatinine 0.89, mild elevated AST at 45, lipase and TSH within normal limits. Urinalysis was positive for proteinuria and ketonuria. Ethyl alcohol elevated at 32. Chest x-ray was negative for acute abnormality. CT abdomen 1. No bowel wall thickening or obstruction. 2. Normal appendix. 3. No CT evidence for acute pancreatitis. 4. Cholecystectomy. 5. Hepatic steatosis. Total bilirubin mildly elevated as 1.4, will fractionate bilirubin trend liver function enzymes possibly abdominal pain could be from gastritis continue pain control with dilaudid prn, give bowel regimen to prevent constipation continue ranitidine and sulcrafate and antiemetics allow clear liquid diet and advance as tolerated urine analysis negative (2) Nausea and vomiting: -antiemetics, pain medication (3) Alcohol withdrawal: -Gabapentin per withdrawl protocol -lorazepam per withdrawl protocol -IV Thiamine 100mg daily -folic acid 1mg daily -no tremors or tongue fasiculations but mildly tachycardic -initiated on keppra 500mg bid while in rehab, continue for Sz prophlyaxis -check serum phosphorous levels (4) Metabolic acidosis: metabolic acidosis is improving with IV fluids (5) Chronic anemia: -microcytic, hypochromic -stable anemia (6) Diabetes mellitus, type II: -A1C 5.5 on 04/26/18 -hold metformin -novolog sliding scale per protocol while inpatient (7) HTN (hypertension): -continue lisinopril daily with parameters (8) Morbid obesity: -encourage diet and lifestyle modifications (9) DVT prophylaxis: -SCDS Subjective no tremors or tongue fasiculations but mildly tachycardic reports abdominal pain that is generalized vomiting appears resolved denies chest pain or shortness of breath. breathing on room air. calm and cooperative on exam Physical Exam 2 Vital Signs (Past 24 Hours): Last Vital Signs Temp 36.9 C 06/03/18 07:37 Pulse 105 H 06/03/18 07:37 Resp 18 06/03/18 07:37 BP 133/86 06/03/18 07:37 Pulse Ox 96 06/03/18 07:37 Constitutional: WD/WN, vitals as above Eyes: PERRL, conjunctivae normal, anicteric sclerae EOM intact bilaterally ENMT: external ear and nose normal, oropharynx normal Neck: trachea midline, no thyromegaly Respiratory: normal respiratory effort, lungs clear to auscultation Cardiovascular: Rate/Rhythm: regular rhythm and + tachycardic Gastrointestinal (Abdomen): normal bowel sounds, soft, nontender, no hepatosplenomegaly Musculoskeletal: no cyanosis or clubbing, extremities motor strength 5/5 Head/Neck/Chest: normocephalic and head atraumatic _ (1) Alcohol withdrawal Complication of substance-induced condition: with unspecified complication Qualified Code(s): F10.239 - Alcohol dependence with withdrawal, unspecified
[2018-06-03 13:32] LABS: Bilirubin Direct 0.3 mg/dl (0-0.2)
[2018-06-03] MEDS: SODIUM CHLORIDE 0.9% 1000ML 1,000 ML IV SCH (14:23)
[2018-06-03] MEDS ORDERED: HYDROmorphone INJ 0.5 MG/0.5 ML SYR IV STA (15:49)
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
[2018-06-03 19:29] LABS: Pregnancy Test, Urine Negative (Negative)
[2018-06-03] MEDS: DOCUSATE SODIUM 100 MG CAP PO SCH (19:46)
[2018-06-03] MEDS: HYDROmorphone INJ 0.5 MG/0.5 ML SYR IV PRN (22:22)
[2018-06-04] MEDS: SODIUM CHLORIDE 0.9% 1000ML 1,000 ML IV SCH ×2 (02:14→14:55)
[2018-06-04] MEDS: GABAPENTIN 600 MG TAB PO SCH ×3 (05:42→23:49)
[2018-06-04] MEDS: HYDROmorphone INJ 0.5 MG/0.5 ML SYR IV PRN ×2 (07:54→19:25)
[2018-06-04] MEDS: SUCRALFATE 1 GM TAB PO SCH ×4 (07:56→20:51)
[2018-06-04] MEDS: levETIRAcetam 500 MG TAB PO SCH ×2 (07:57→21:14)
[2018-06-04] MEDS: ESCITALOPRAM OXALATE 20 MG TAB PO SCH (07:57)
[2018-06-04] MEDS: DOCUSATE SODIUM 100 MG CAP PO SCH ×2 (07:57→20:50)
[2018-06-04] MEDS: SENNA 8.6 MG TAB PO SCH (07:59)
[2018-06-04] MEDS: FOLIC ACID 1 MG TAB PO SCH (07:59)
[2018-06-04] MEDS: LISINOPRIL 5 MG TAB PO SCH (07:59)
[2018-06-04] MEDS: THIAMINE HCL 100 MG TAB PO SCH (08:00)
[2018-06-04] MEDS: INSULIN ASPART 100 UNITS/ML 3 ML PEN SC SCH ×4 (09:22→20:51)
[2018-06-04] MEDS: LORazepam 1 MG/2 ML VIAL IV PRN ×2 (10:17→16:19)
--- NOTE | 2018-06-04 12:37 | History & Physical Report ---
Date of Service June 04, 2018 Assessment & Plan (1) Abdominal pain: Patient presenting with a history of abdominal discomfort likely related to underlying irritable bowel syndrome. She did have a recent ulcer in the past and perhaps an upper endoscopy would be beneficial to look for worsening peptic ulcer disease. It is also possible that her discomfort is related to her underlying alcohol abuse. I think it is important that the patient can you with efforts at abstinence. Other possible causes of the patient's symptoms could be her medications she is on a number which can cause abdominal discomfort and even diarrhea. These include both Lexapro and metformin. Recommendations N.p.o. at midnight for upper endoscopy on Tuesday (2) Diarrhea: The patient describes having new onset diarrhea multiple times per day. This could be from an infectious etiology such as C. difficile or bacterial infection. Other possible causes include medications. I would suggest further evaluation with a stool study for culture and C. difficile PCR. History of Present Illness Chief Complaint: Abdominal pain Primary Care Provider: Logan Tsai 28-year-old female known to our service for history of irritable bowel syndrome and sphincter of Oddi dysfunction who presented to the hospital a few days ago for evaluation of nausea vomiting and complications associated with alcohol abuse. She notes that her abdominal pain is localized to her mid abdomen sometimes radiating towards her left hand side. It is associated with some alteration of her bowel habits. She describes having 4-6 loose to liquid bowel movements per day without hematochezia. She did have a recent upper endoscopy by which showed evidence of an esophageal ulcer. She denies having difficulty with swallowing pain with swallowing fevers chills or sweats today. Allergies Allergy/AdvReac Type Severity Reaction Status Date / Time pantoprazole Allergy Intermediate "ITCHY ALL Verified 02/01/18 18:56 OVER" ketorolac Allergy Mild pruritus Verified 02/01/18 18:56 ondansetron Allergy Unknown lip Verified 02/01/18 18:56 tingling morphine AdvReac Intermediate ITCHINESS Verified 02/01/18 18:56 Home Medications Home Medications Medication Instructions Recorded Confirmed Type buspirone 10 mg PO BID 06/02/18 06/02/18 History docusate sodium 100 mg PO BID PRN 06/02/18 06/02/18 History escitalopram oxalate 20 mg PO DAILY 06/02/18 06/02/18 History levetiracetam [Keppra] 500 mg PO BID 06/02/18 06/02/18 History lisinopril [Zestril] 5 mg PO DAILY 06/02/18 06/02/18 History metformin [Glucophage XR] 500 mg PO DAILY 06/02/18 06/02/18 History omeprazole 20 mg PO BID 06/02/18 06/02/18 History polyethylene glycol 3350 [Miralax] 17 g PO DAILY PRN 06/02/18 06/02/18 History sucralfate [Carafate] 1 g PO ACHS 06/02/18 06/02/18 History Past Med/Surg History Medical History Chronic anemia Diabetes mellitus, type II (Chronic) Abnormal LFTs (liver function tests) (Chronic) Hx of pancreatitis (Chronic) Alcohol abuse (Chronic) Uterine fibroid (Chronic) Hepatic steatosis (Chronic) Morbid obesity (Chronic) Abdominal pain Double vision Nausea and vomiting Weakness Family History Father T2DM (type 2 diabetes mellitus) Mother No problems noted. Other FHx: alcoholism No pertinent family history Social History marital status: Single Current Living Situation: Alone current occupation: [employer] employee Other Information That Helps Us Care for You: No Feels Safe at Home: Yes Safety Concerns: Feels Safe At This Time Smoking Status: Never smoker Second Hand Exposure: No Hx Alcohol Use: Yes (recent went through Rehab 04/27/18-05/28/18) Alcohol type: hard liquor Alcohol Intake Frequency: 3 or more drinks per day Alcohol Intake Frequency Comment: 750ml vodka; [place] daily Hx Substance Use: No Beliefs That Will Affect Care: None Preferred Language: Bermudian Communication Ability: Effective 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 Required: No Review of Systems Constitutional: + malaise; no sweats and no weight loss Eyes: no diplopia Ear, Nose, Mouth, Throat: no ear trauma and no foul smell Respiratory: no change in sputum and no hemoptysis Cardiovascular: no chest pain with activity and no dyspnea at rest Gastrointestinal: + bloating, + nausea, + cramping and + change in stools; no hematemesis Genitourinary (Female): no urinary frequency Musculoskeletal: no radicular pain Neurologic: no falls, no paralysis and no numbness Psychiatric: no change in appetite Endocrine: no cold intolerance Hematologic / Lymphatic: no coagulopathy Physical Exam 2 Vital Signs (Past 24 Hours): Last Vital Signs Temp 36.5 C 06/04/18 11:21 Pulse 98 H 06/04/18 11:21 Resp 22 06/04/18 11:21 BP 145/88 H 06/04/18 11:21 Pulse Ox 100 06/04/18 11:21 Constitutional: well developed and well nourished; no acute distress Eyes: PERRL, conjunctivae normal, anicteric sclerae Neck: trachea midline, no thyromegaly Respiratory: normal respiratory effort; no retractions and no cough Cardiovascular: Rate/Rhythm: regular rate and regular rhythm Heart Sounds: no murmur Gastrointestinal (Abdomen): Percussion/Palpation: + abdomen tender, abdomen soft and + hepatomegaly; no guarding and abdomen not rigid mild epigastric tenderness Neurologic: Motor/Sensory: no asterixis Results & Data Laboratory Results Laboratory Results - last 24 hr 06/03/18 06/03/18 06/03/18 06:26 16:11 20:16 POC Glucose 86 83 Phosphorus 3.0 Direct Bilirubin 0.3 H Urine Test 06/03/18 06/04/18 06/04/18 Unknown 07:20 11:55 POC Glucose 94 105 H Phosphorus Direct Bilirubin Urine Test Negative Diagnostic Findings ABDOMEN AND PELVIS CT WITH IV CONTRAST CT DOSE: 1799.21 mGy.cm HISTORY: Mid abdominal pain TECHNIQUE: Multiaxial CT images of the abdomen and pelvis were performed following the use of intravenous contrast. A dose lowering technique was utilized adhering to the principles of ALARA. COMPARISON STUDY: Abdomen and pelvis CT 04/09/2018. FINDINGS: The lung bases are clear. No pneumoperitoneum. No pneumatosis. No fractures within the visualized osseous structures. Hepatic steatosis. Cholecystectomy. The spleen, adrenal glands, and right kidney are unremarkable. No hydronephrosis. Stable 6 mm hypodense lesion within the left kidney. This is technically too small to characterize. No retroperitoneal lymphadenopathy. There is a left circumaortic renal vein. An intrauterine device is noted and is unchanged in position. There are 2 lobular subserosal nodules within the uterus with the largest measuring 2.5 cm. These likely represent fibroids. The ovaries are unremarkable. No significant pelvic free fluid. Normal bladder. The pancreas enhances normally. No definite peripancreatic inflammatory change. No bowel wall thickening or obstruction. Normal appendix. IMPRESSION: 1. No bowel wall thickening or obstruction. 2. Normal appendix. 3. No CT evidence for acute pancreatitis. 4. Cholecystectomy. 5. Hepatic steatosis. Code Status & VTE Plan VTE Prophylaxis Plan VTE Prophylaxis will be ordered: Yes
[2018-06-04] MEDS ORDERED: HYDROmorphone INJ 0.5 MG/0.5 ML SYR IV STA (14:38)
--- NOTE | 2018-06-04 15:31 | Hospitalist Progress Note ---
Date of Service June 04, 2018 Assessment & Plan (1) Abdominal pain: (1) Abdominal pain: Initial lab workup revealed WBC 8.1, stable hemoglobin hematocrit of 10.2 and 32.8, platelet 402, BMP consistent with metabolic acidosis, anion gap 18, CO2 12, sodium 136, potassium 3.8, BUN 9, creatinine 0.89, mild elevated AST at 45, lipase and TSH within normal limits. Urinalysis was positive for proteinuria and ketonuria. Ethyl alcohol elevated at 32. Chest x-ray was negative for acute abnormality. CT abdomen 1. No bowel wall thickening or obstruction. 2. Normal appendix. 3. No CT evidence for acute pancreatitis. 4. Cholecystectomy. 5. Hepatic steatosis. Total bilirubin mildly elevated As per Gastroenterology consult "Patient presenting with a history of abdominal discomfort likely related to underlying irritable bowel syndrome. She did have a recent ulcer in the past and perhaps an upper endoscopy would be beneficial to look for worsening peptic ulcer disease." -N.p.o. at midnight for upper endoscopy on Tuesday -evaluation with a stool study for culture and C. difficile PCR. continue pain control with dilaudid prn, give bowel regimen to prevent constipation continue ranitidine and sulcrafate and antiemetics urine analysis negative (2) Nausea and vomiting: -antiemetics, pain medication (3) Alcohol withdrawal: -Gabapentin per withdrawl protocol -lorazepam per withdrawl protocol -IV Thiamine 100mg daily -folic acid 1mg daily -no tremors or tongue fasiculations but mildly tachycardic -initiated on keppra 500mg bid while in rehab, continue for Sz prophlyaxis -check serum phosphorous levels (4) Metabolic acidosis: admission metabolic acidosis improved with IV fluids (5) Chronic anemia: -microcytic, hypochromic -stable anemia (6) Diabetes mellitus, type II: -A1C 5.5 on 04/26/18 -hold metformin -novolog sliding scale per protocol while inpatient (7) HTN (hypertension): -continue lisinopril daily with parameters (8) Morbid obesity with BMI 46.6 in an adult -encourage diet and lifestyle modifications (9) DVT prophylaxis: -SCDS Subjective no tremors or tongue fasiculations but mildly tachycardic, reports abdominal pain that is generalized and sometimes asking for dilaudid on liquid diet with plans by gastroenterology to do upper endoscopy on Tuesday and will be NPO after this midnight no vomiting denies chest pain or shortness of breath. breathing on room air Physical Exam 2 Vital Signs (Past 24 Hours): Last Vital Signs Temp 36.5 C 06/04/18 11:21 Pulse 98 H 06/04/18 11:21 Resp 22 06/04/18 11:21 BP 145/88 H 06/04/18 11:21 Pulse Ox 100 06/04/18 11:21 Constitutional: WD/WN, vitals as above Eyes: PERRL, conjunctivae normal, anicteric sclerae EOM intact bilaterally ENMT: external ear and nose normal, oropharynx normal Neck: trachea midline, no thyromegaly Respiratory: normal respiratory effort, lungs clear to auscultation Cardiovascular: Rate/Rhythm: regular rhythm and + tachycardic Gastrointestinal (Abdomen): normal bowel sounds, soft, nontender, no hepatosplenomegaly (some abdominal discomfort that is generalized) Musculoskeletal: no cyanosis or clubbing, extremities motor strength 5/5 Head/Neck/Chest: normocephalic and head atraumatic
[2018-06-04 15:51] LABS: Basophils # (auto) 0.02 K/uL (0-0.2); Basophils % (auto) 0.4 %; Eosinophils # (auto) 0.15 K/uL (0-0.5); Eosinophils % (auto) 2.8 %; Hematocrit (blood only) 29.2 % (37-47); Hemoglobin 9.1 g/dL (12.0-16.0); Immature Granulocytes # (auto) 0.01 K/uL (0.00-0.02); Immature Granulocytes % (auto) 0.2 %; Lymphocytes # (auto) 2.33 K/uL (1.2-3.4); Lymphocytes % (auto) 43.4 %; Mean Platelet Volume 9.1 fL (7.4-10.4); Monocytes # (auto) 0.42 K/uL (0.11-0.59); Monocytes % (auto) 7.8 %; Neutrophils # (auto) 2.44 K/uL (1.4-6.5); Neutrophils % (auto) 45.4 %; Platelet Count 272 K/uL (130-400); RDW Coefficient of Variation 21.2 % (11.5-14.5); Red Blood Count 3.84 M/uL (4.2-5.4); White Blood Count 5.37 K/uL (4.8-10.8)
[2018-06-04 15:53] LABS: Mean Corpuscular Hgb Conc 31.2 g/dL (32-36)
[2018-06-04 16:11] LABS: Albumin Level 3.1 gm/dl (3.4-5.0); BUN Creatinine Ratio 6.6 (10-20); Bilirubin Direct 0.4 mg/dl (0-0.2); Calcium 8.4 mg/dl (8.5-10.1); Creatinine Clr Calc Pharmacy 172.4 ml/min; Est GFR (African American) 138.8; Est GFR (Non-African American) 119.7; Potassium 3.5 mmol/L (3.5-5.1)
[2018-06-04 16:17] LABS: Anisocytosis Present; Hypochromasia Present
[2018-06-04 16:24] LABS: Albumin Globulin Ratio 0.7 (0.9-2); Bilirubin,Total 1.7 mg/dl (0.2-1); Globulin 4.4 gm/dl (2.5-4.0); Total Protein 7.5 gm/dl (6.4-8.2)
[2018-06-05] MEDS: HYDROmorphone INJ 0.5 MG/0.5 ML SYR IV PRN ×2 (04:11→12:38)
[2018-06-05] MEDS: INSULIN ASPART 100 UNITS/ML 3 ML PEN SC SCH ×4 (08:20→21:51)
[2018-06-05] MEDS: LISINOPRIL 5 MG TAB PO SCH (08:21)
[2018-06-05] MEDS: SENNA 8.6 MG TAB PO SCH (08:22)
[2018-06-05] MEDS: FOLIC ACID 1 MG TAB PO SCH (08:22)
[2018-06-05] MEDS: THIAMINE HCL 100 MG TAB PO SCH (08:22)
[2018-06-05] MEDS: ESCITALOPRAM OXALATE 20 MG TAB PO SCH (08:22)
[2018-06-05] MEDS: DOCUSATE SODIUM 100 MG CAP PO SCH ×2 (08:23→21:47)
[2018-06-05] MEDS: SUCRALFATE 1 GM TAB PO SCH ×4 (08:23→21:47)
[2018-06-05] MEDS: levETIRAcetam 500 MG TAB PO SCH ×2 (08:24→21:47)
--- NOTE | 2018-06-05 10:36 | History & Physical Report ---
Date of Service June 05, 2018 Assessment & Plan (1) Abdominal pain, epigastric: stable for EGD History of Present Illness Chief Complaint: abdominal pain Primary Care Provider: Logan Tsai pt with abdominal pain for EGD Allergies Allergy/AdvReac Type Severity Reaction Status Date / Time pantoprazole Allergy Intermediate "ITCHY ALL Verified 02/01/18 18:56 OVER" ketorolac Allergy Mild pruritus Verified 02/01/18 18:56 ondansetron Allergy Unknown lip Verified 02/01/18 18:56 tingling morphine AdvReac Intermediate ITCHINESS Verified 02/01/18 18:56 Home Medications Home Medications Medication Instructions Recorded Confirmed Type buspirone 10 mg PO BID 06/02/18 06/02/18 History docusate sodium 100 mg PO BID PRN 06/02/18 06/02/18 History escitalopram oxalate 20 mg PO DAILY 06/02/18 06/02/18 History levetiracetam [Keppra] 500 mg PO BID 06/02/18 06/02/18 History lisinopril [Zestril] 5 mg PO DAILY 06/02/18 06/02/18 History metformin [Glucophage XR] 500 mg PO DAILY 06/02/18 06/02/18 History omeprazole 20 mg PO BID 06/02/18 06/02/18 History polyethylene glycol 3350 [Miralax] 17 g PO DAILY PRN 06/02/18 06/02/18 History sucralfate [Carafate] 1 g PO ACHS 06/02/18 06/02/18 History Past Med/Surg History Medical History Chronic anemia Diabetes mellitus, type II (Chronic) Abnormal LFTs (liver function tests) (Chronic) Hx of pancreatitis (Chronic) Alcohol abuse (Chronic) Uterine fibroid (Chronic) Hepatic steatosis (Chronic) Morbid obesity (Chronic) Abdominal pain Double vision Nausea and vomiting Weakness Family History Father T2DM (type 2 diabetes mellitus) Mother No problems noted. Other FHx: alcoholism No pertinent family history Social History marital status: Single Current Living Situation: Alone current occupation: [employer] employee Other Information That Helps Us Care for You: No Feels Safe at Home: Yes Safety Concerns: Feels Safe At This Time Smoking Status: Never smoker Second Hand Exposure: No Hx Alcohol Use: Yes (recent went through Rehab 04/27/18-05/28/18) Alcohol type: hard liquor Alcohol Intake Frequency: 3 or more drinks per day Alcohol Intake Frequency Comment: 750ml vodka; [place] daily Hx Substance Use: No Beliefs That Will Affect Care: None Communication Ability: Effective Physical Exam 2 Vital Signs (Past 24 Hours): Last Vital Signs Temp 36.7 C 06/05/18 04:18 Pulse 109 H 06/05/18 04:18 Resp 18 06/05/18 04:18 BP 142/93 H 06/05/18 04:18 Pulse Ox 100 06/05/18 04:18 Constitutional: WD/WN, vitals as above Respiratory: normal respiratory effort, lungs clear to auscultation Cardiovascular: RRR, no murmur, no edema Gastrointestinal (Abdomen): normal bowel sounds, soft, nontender, no hepatosplenomegaly Code Status & VTE Plan VTE Prophylaxis Plan VTE Prophylaxis will be ordered: Yes
--- NOTE | 2018-06-05 10:46 | Anesthesiology Consultation ---
Date of Service June 05, 2018 Last alcohol on 05/31/17 Assessment & Plan (1) Encounter for pre-operative examination: Chart Review Chart Review: Acceptable Risk for Surgery and Patient NOT seen in Pre Admission Testing Consults Requested none ASA ASA3 Proposed Anesthesia Anesthesia Type: MAC Risk / Benefits Reviewed With: PT / POA / Parent / Guardian and Accepts Plan NPO Date Last Intake of Fluids: 06/05/18 Time Last Intake of Fluids: 08:00 Last Intake of Fluids Comment: sip water Date Last Intake of Solids: 06/01/18 Time Last Intake of Solids: 22:00 History Surgery Operation Date: 06/05/18 11:15 Proposed Procedures p Esophagogastroduodenoscopy Dr Nelson Damon Height/Weight Height: 5 ft 5 in Weight: 126.9 kg Allergies Allergy/AdvReac Type Severity Reaction Status Date / Time pantoprazole Allergy Intermediate "ITCHY ALL Verified 02/01/18 18:56 OVER" ketorolac Allergy Mild pruritus Verified 02/01/18 18:56 ondansetron Allergy Unknown lip Verified 02/01/18 18:56 tingling morphine AdvReac Intermediate ITCHINESS Verified 02/01/18 18:56 Medications Home Medications Medication Instructions Recorded Confirmed Last Taken buspirone 10 mg PO BID 06/02/18 06/02/18 Unknown docusate sodium 100 mg PO BID PRN 06/02/18 06/02/18 Unknown escitalopram oxalate 20 mg PO DAILY 06/02/18 06/02/18 Unknown levetiracetam [Keppra] 500 mg PO BID 06/02/18 06/02/18 Unknown lisinopril [Zestril] 5 mg PO DAILY 06/02/18 06/02/18 Unknown metformin [Glucophage XR] 500 mg PO DAILY 06/02/18 06/02/18 Unknown omeprazole 20 mg PO BID 06/02/18 06/02/18 Unknown polyethylene glycol 3350 [Miralax] 17 g PO DAILY PRN 06/02/18 06/02/18 Unknown sucralfate [Carafate] 1 g PO ACHS 06/02/18 06/02/18 Unknown Active Medications Generic Name Dose Route Start Last Admin Trade Name Freq PRN Reason Stop Dose Admin Buspirone HCl 10 mg 06/03/18 21:00 06/05/18 08:23 Buspar PO 07/03/18 20:59 10 mg TID JOSE Administration Docusate Sodium 100 mg 06/03/18 21:00 06/05/18 08:23 Colace PO 07/03/18 20:59 100 mg BID JOSE Administration Escitalopram Oxalate 20 mg 06/03/18 09:00 06/05/18 08:22 Lexapro PO 07/03/18 08:59 20 mg DAILY JOSE Administration Folic Acid 1 mg 06/03/18 09:00 06/05/18 08:22 Folvite PO 07/03/18 08:59 1 mg QAM JOSE Administration Gabapentin 600 mg 06/05/18 00:00 06/04/18 23:49 Neurontin PO 06/05/18 12:01 600 mg Q12H JOSE Administration Hydromorphone HCl 0.5 mg 06/03/18 19:00 06/05/18 04:11 Dilaudid IV 06/17/18 18:59 0.5 mg Q8H PRN Administration Pain Lorazepam 1 mg in 2 mls @ 2 mls/min 06/02/18 18:53 06/04/18 16:19 Ativan IV 07/02/18 18:52 2 mls/min UD PRN Administration EtOH Withdrawl AWSS Score 6,7 Protocol Promethazine HCl 12.5 mg/ 50.5 mls @ 204 mls/hr 06/02/18 20:12 06/03/18 14:51 Sodium Chloride IV 07/02/18 20:11 Infused Q6H PRN Infusion Nausea And Vomiting Insulin Aspart 0 units 06/03/18 21:00 06/05/18 08:20 Novolog Flexpen SC 07/03/18 20:59 Not Given ACHS JOSE Ioversol 116 ml 06/02/18 18:34 06/02/18 18:34 Optiray 320 125ml IV 06/06/18 18:33 116 ml ONCE PRN Administration Interaction Checking Levetiracetam 500 mg 06/02/18 21:00 06/05/18 08:24 Keppra PO 07/02/18 20:59 500 mg BID JOSE Administration Lisinopril 5 mg 06/03/18 09:00 06/05/18 08:21 Zestril PO 07/03/18 08:59 5 mg DAILY JOSE Administration Ranitidine HCl 150 mg 06/02/18 21:00 06/05/18 08:24 Zantac PO 07/02/18 20:59 150 mg BID JOSE Administration Sennosides 8.6 mg 06/04/18 09:00 06/05/18 08:22 Senokot PO 07/04/18 08:59 8.6 mg QAM JOSE Administration Sucralfate 1 gm 06/02/18 21:00 06/05/18 08:23 Carafate Tab PO 07/02/18 20:59 1 gm ACHS JOSE Administration Thiamine HCl 100 mg 06/03/18 09:00 06/05/18 08:22 Vitamin B-1 PO 07/03/18 08:59 100 mg QAM JOSE Administration Past Medical History Medical History Chronic anemia Diabetes mellitus, type II (Chronic) Abnormal LFTs (liver function tests) (Chronic) Hx of pancreatitis (Chronic) Alcohol abuse (Chronic) Uterine fibroid (Chronic) Hepatic steatosis (Chronic) Morbid obesity (Chronic) Abdominal pain Double vision Nausea and vomiting Weakness Past Family History Family History Father T2DM (type 2 diabetes mellitus) Mother No problems noted. Other FHx: alcoholism No pertinent family history Past Surgical History Surgical History H/O esophagogastroduodenoscopy (Chronic) Most recent 05/09: - Non-bleeding esophageal ulcer, likely esophagitis or prior MWT. - Normal stomach. - Normal duodenal bulb and second portion of the duodenum. S/P cholecystectomy (Chronic) Past Anesthesia History No Hx of Anesthesia Complications and No Family Hx of Anesthesia Complications History of PONV No Motion Sickness Screening History of Motion Sickness: No Social History Smoking Status: Never smoker Hx Alcohol Use: Yes (recent went through Rehab 04/27/18-05/28/18) Alcohol type: hard liquor alcohol intake frequency: 3 or more drinks per day Alcohol Intake Frequency Comment: 750 mL bottle of moonshine/ day Hx Substance Use: No substance use type: does not use Exercise / Class Metabolic Activity II 4-5 Yardwork/Stairs/Walk up hill Review of Systems no chest pain or sob Physical Exam Vital Signs Last Vital Signs Temp 36.1 C L 06/05/18 10:45 Pulse 102 H 06/05/18 10:45 Resp 24 06/05/18 10:45 BP 165/90 H 06/05/18 10:45 Pulse Ox 99 06/05/18 10:45 Constitutional + morbidly obese ENMT Mouth: no dentition abnormality Thyromental Distance: > or= 3.5 Finger Breadths Mallampati Class: III Neck normal visual inspection and + thick neck Respiratory normal respiratory effort Cardiovascular Rate/Rhythm: regular rate and regular rhythm Musculoskeletal Spine: no pain with cervical ROM Neurologic moves all extremities Psychiatric Orientation: alert and oriented x 3 Testing Laboratory Results 06/04/18 15:41 06/04/18 15:41 PT 10.7 Seconds (9.0-12.0) 06/02/18 14:40 INR 1.1 (0.9-1.1) 06/02/18 14:40 APTT 24.0 Seconds (21.0-31.0) 06/02/18 14:40 Urine Color Yellow 06/02/18 14:25 Urine Appearance Cloudy (Clear) H 06/02/18 14:25 Urine pH 5.0 (4.5-7.5) 06/02/18 14:25 Ur Specific Lynn 1.028 (1.000-1.030) 06/02/18 14:25 Urine Protein 3+ (Negative) H 06/02/18 14:25 Urine Glucose (UA) Negative (Negative) 06/02/18 14:25 Urine Ketones 4+ (Negative) H 06/02/18 14:25 Urine Nitrite Negative (Negative) 06/02/18 14:25 Ur Leukocyte Esterase Negative (Negative) 06/02/18 14:25 Urine WBC (Auto) 1-5 /hpf (0-5) 06/02/18 14:25 Urine RBC (Auto) 5-10 /hpf (0-4) H 06/02/18 14:25 U Hyaline Cast (Auto) 1-5 /lpf (0-5) 06/02/18 14:25 U Epithel Cells (Auto) >30 /lpf (0-5) H 06/02/18 14:25 Urine Bacteria (Auto) Negative (Negative) 06/02/18 14:25 Urine Test Negative (Negative) 06/03/18 Unknown 06/04/18 13:40 Escherichia coli Shiga Toxins - Preliminary Stool Stool Culture - Preliminary No Salmonella isolated to date, No Shigella isolated to date, No Campylobacter jejuni isolated to date. 06/05/18 07:21 POC Glucose 123 H 06/03/18 06/03/18 Unknown Unknown Urine Test Negative POC Ur Test Pending
[2018-06-05] MEDS ORDERED: MIDAZOLAM HCL 1 MG/ML 2ML VIAL ONE (10:55)
[2018-06-05] MEDS ORDERED: LIDOCAINE HCL 2% 2 ML VIAL/AMP(20MG/ML) INFIL ONE (10:56)
[2018-06-05] MEDS ORDERED: PROPOFOL IV EMULSION 10 MG/ML 20 ML VIAL IV ONE (10:56)
--- NOTE | 2018-06-05 11:30 | Anesthesiology Progress Note ---
Date of Service June 05, 2018 Anesthesia Post Procedure Vital Signs Vital Signs: Temp Pulse Pulse Pulse Resp BP Pulse Ox 06/05/18 11:25 36.7 C 16 L 110 H 16 119/89 06/05/18 10:45 36.1 C L 102 H 24 165/90 H 99 06/05/18 04:18 36.7 C 109 H 18 142/93 H 100 06/04/18 23:58 102 H 06/04/18 22:49 36.8 C 73 19 131/84 100 06/04/18 19:01 36.7 C 107 H 20 137/93 98 06/04/18 16:43 36.5 C 83 20 142/91 H 97 Pain Intensity Bilateral Abdomen: Pain Intensity: 2 Notes Mental Status: alert / awake / arousable Patient Amnestic to Procedure: Yes Nausea / Vomiting: adequately controlled Pain: adequately controlled Airway Patency, RR, SpO2: stable & adequate BP & HR: stable & adequate Hydration State: stable & adequate Anesthetic Complications: no major complications apparent and Pt Satisfied with anesthetic care
--- NOTE | 2018-06-05 11:38 | GI REPORT ---
Patient Name: Ashly Xie Procedure Date: 06/05/2018 10:44 AM Date of : 1990 Admit Type: Inpatient Age: 28 Gender: Female Attending MD: Brady Damon MD Procedure: Upper GI endoscopy Providers: Brady Damon MD Referring MD: Lawrence Vences M.d. Indications: Epigastric abdominal pain Medicines: See the Anesthesia note for documentation of the administered medications Complications: No immediate complications. Estimated Blood Loss: Estimated blood loss: none. Procedure: Pre-Anesthesia Assessment: - Prior to the procedure, a History and Physical was performed, and patient medications, allergies and sensitivities were reviewed. The patient's tolerance of previous anesthesia was reviewed. - The risks and benefits of the procedure and the sedation options and risks were discussed with the patient. All questions were answered and informed consent was obtained. - Patient identification and proposed procedure were verified prior to the procedure by the physician and the nurse. The procedure was verified in the pre-procedure area. - Pre-procedure physical examination revealed no contraindications to sedation. - After reviewing the risks and benefits, the patient was deemed in satisfactory condition to undergo the procedure. After obtaining informed consent, the endoscope was passed under direct vision. Throughout the procedure, the patient's blood pressure, pulse, and oxygen saturations were monitored continuously. The Endoscope was introduced through the mouth, and advanced to the third part of duodenum. The upper GI endoscopy was accomplished without difficulty. The patient tolerated the procedure well. Findings: The esophagus was normal. The stomach was normal. The examined duodenum was normal. The cardia and gastric fundus were normal on retroflexion. Impression: - Normal esophagus. - Normal stomach. - Normal examined duodenum. - No specimens collected. Recommendation: - Return patient to [facility] for ongoing care. Brady Damon M.D. Brady Damon MD 06/05/2018 11:37:32 AM This report has been signed electronically. Note Initiated On: 06/05/2018 10:44 AM Number of Addenda: 0 I attest to the content of the Intraoperative Record and orders documented therein, exceptions below {[id number]}
[2018-06-05] MEDS: GABAPENTIN 600 MG TAB PO SCH (12:45)
[2018-06-05] MEDS: METOPROLOL TARTRATE 25 MG TAB PO SCH (14:46)
[2018-06-05] MEDS: ACETAMINOPHEN 325 MG TAB PO PRN ×2 (16:36→21:44)
--- NOTE | 2018-06-05 19:26 | Hospitalist Progress Note ---
Date of Service June 05, 2018 Assessment & Plan (1) Abdominal pain: (1) Abdominal pain: Initial lab workup revealed WBC 8.1, stable hemoglobin hematocrit of 10.2 and 32.8, platelet 402, BMP consistent with metabolic acidosis, anion gap 18, CO2 12, sodium 136, potassium 3.8, BUN 9, creatinine 0.89, mild elevated AST at 45, lipase and TSH within normal limits. Urinalysis was positive for proteinuria and ketonuria. Ethyl alcohol elevated at 32. Chest x-ray was negative for acute abnormality. CT abdomen 1. No bowel wall thickening or obstruction. 2. Normal appendix. 3. No CT evidence for acute pancreatitis. 4. Cholecystectomy. 5. Hepatic steatosis. Total bilirubin mildly elevated 06/05/18 patient returns from upper endoscopy and no etiology identified for the abdominal discomfort patient tolerating diet and abdominal pain tolerable with acetaminophen only continue ranitidine and sulcrafate and antiemetics urine analysis negative (2) Nausea and vomiting: resolved (3) Alcohol withdrawal / Depression completed gabapentin withdrawl protocol - gabapentin started as 300 mg TID as per psychiatry; continue escitalopram 20 mg daily and buspirone 10 mg TID had on this hospital stay received thiamine and folic acid no acute alcohol withdrawal symptoms and heart rate generally improving - will start metoprolol to ameliorate the heart rate was initiated on keppra 500mg bid while in rehab, continue for seziure propylaxis but no seizures while in hospital patient transitioned off telemetry floor patient would like to return to [facility] to continue alcohol use treatment after the hospital stay (4) Metabolic acidosis: admission metabolic acidosis resolved with IV fluids (5) Chronic anemia: -microcytic, hypochromic -stable anemia (6) Diabetes mellitus, type II: -A1C 5.5 on 04/26/18 -hold metformin -novolog sliding scale per protocol while inpatient (7) HTN (hypertension): -continue lisinopril daily with parameters (8) Morbid obesity with BMI 46.6 in an adult -encourage diet and lifestyle modifications (9) DVT prophylaxis: -SCDS Subjective patient returns from upper endoscopy and no etiology identified for the abdominal discomfort patient tolerating diet and abdominal pain tolerable with acetaminophen only no vomiting denies chest pain or shortness of breath. breathing on room air Physical Exam 2 Vital Signs (Past 24 Hours): Last Vital Signs Temp 36.7 C 01/14/19 15:10 Pulse 92 H 06/05/18 15:10 Resp 22 06/05/18 15:10 BP 131/87 06/05/18 15:10 Pulse Ox 98 06/05/18 15:10 Constitutional: WD/WN, vitals as above Eyes: PERRL, conjunctivae normal, anicteric sclerae EOM intact bilaterally ENMT: external ear and nose normal, oropharynx normal Neck: trachea midline, no thyromegaly Respiratory: normal respiratory effort, lungs clear to auscultation Cardiovascular: Rate/Rhythm: regular rhythm Gastrointestinal (Abdomen): normal bowel sounds, soft, nontender, no hepatosplenomegaly (some abdominal discomfort that is generalized) Musculoskeletal: no cyanosis or clubbing, extremities motor strength 5/5 Head/Neck/Chest: normocephalic and head atraumatic
[2018-06-05] MEDS: TRAMADOL HCL 50 MG TABLET PO PRN (23:58)
[2018-06-06] MEDS: TRAMADOL HCL 50 MG TABLET PO PRN ×2 (05:55→12:09)
[2018-06-06] MEDS: INSULIN ASPART 100 UNITS/ML 3 ML PEN SC SCH ×2 (08:18→12:31)
[2018-06-06] MEDS: DOCUSATE SODIUM 100 MG CAP PO SCH (08:22)
[2018-06-06] MEDS: SUCRALFATE 1 GM TAB PO SCH ×2 (08:22→12:09)
[2018-06-06] MEDS: levETIRAcetam 500 MG TAB PO SCH (08:22)
[2018-06-06] MEDS: ESCITALOPRAM OXALATE 20 MG TAB PO SCH (08:22)
[2018-06-06] MEDS: METOPROLOL TARTRATE 25 MG TAB PO SCH (08:22)
[2018-06-06] MEDS: LISINOPRIL 5 MG TAB PO SCH (08:22)
[2018-06-06 08:31] LABS: BUN Creatinine Ratio 11.5 (10-20); Calcium 8.6 mg/dl (8.5-10.1); Creatinine Clr Calc Pharmacy 157.6 ml/min; Est GFR (African American) 134.8; Est GFR (Non-African American) 116.3; Magnesium 1.8 mg/dl (1.8-2.4); Potassium 3.4 mmol/L (3.5-5.1)
[2018-06-06 08:42] LABS: Albumin Globulin Ratio 0.7 (0.9-2); Bilirubin,Total 0.4 mg/dl (0.2-1); Globulin 4.2 gm/dl (2.5-4.0); Phosphorus 2.8 mg/dl (2.5-4.9); Total Protein 7.2 gm/dl (6.4-8.2)
--- NOTE | 2018-06-06 08:51 | Anesthesiology Progress Note ---
Date of Service June 06, 2018 Anesthesia Post Procedure Vital Signs Vital Signs: Temp Pulse Resp BP Pulse Ox 06/06/18 08:14 36.7 C 96 H 20 111/74 100 06/05/18 23:59 36.9 C 94 H 20 116/75 97 06/05/18 15:10 36.7 C 92 H 22 131/87 98 06/05/18 13:22 108 H 18 122/79 98 06/05/18 12:53 36.6 C 100 H 18 131/89 100 06/05/18 12:03 100 H 20 119/87 06/05/18 11:30 106 H 20 129/89 06/05/18 11:15 36.7 C 110 H 16 119/89 06/05/18 10:45 36.1 C L 102 H 24 165/90 H 99 Pain Intensity Bilateral Abdomen: Pain Intensity: 7 Notes Mental Status: alert / awake / arousable Patient Amnestic to Procedure: Yes Nausea / Vomiting: adequately controlled Pain: improving with treatment Airway Patency, RR, SpO2: stable & adequate BP & HR: stable & adequate Hydration State: stable & adequate Anesthetic Complications: no major complications apparent
[2018-06-06] MEDS ORDERED: GABAPENTIN 600 MG TAB PO SCH (12:00)
--- NOTE | 2018-06-06 13:23 | Hospitalist Progress Note ---
Date of Service June 06, 2018 Assessment & Plan (1) Abdominal pain: (1) Abdominal pain: Initial lab workup revealed WBC 8.1, stable hemoglobin hematocrit of 10.2 and 32.8, platelet 402, BMP consistent with metabolic acidosis, anion gap 18, CO2 12, sodium 136, potassium 3.8, BUN 9, creatinine 0.89, mild elevated AST at 45, lipase and TSH within normal limits. Urinalysis was positive for proteinuria and ketonuria. Ethyl alcohol elevated at 32. Chest x-ray was negative for acute abnormality. CT abdomen 1. No bowel wall thickening or obstruction. 2. Normal appendix. 3. No CT evidence for acute pancreatitis. 4. Cholecystectomy. 5. Hepatic steatosis. Total bilirubin mildly elevated 06/05/18 patient returns from upper endoscopy and no etiology identified for the abdominal discomfort patient tolerating diet and abdominal pain tolerable with acetaminophen onlcontinue ranitidine and sulcrafate urine analysis negative (2) Nausea and vomiting: resolved (3) Alcohol withdrawal / Depression completed gabapentin withdrawl protocol - gabapentin started as 300 mg TID as per psychiatry on 06/05/18; continue escitalopram 20 mg daily and buspirone 10 mg TID had on this hospital stay received thiamine and folic acid no acute alcohol withdrawal symptoms and heart rate generally improving - started metoprolol 12.5 mg on 06/05/18 to ameliorate the heart rate, continue this dosing was initiated on keppra 500mg bid while in rehab, continue for seziure propylaxis but no seizures while in hospital patient transitioned off telemetry floor on 06/05/18 patient to return to [facility] to continue treatement for history of alcohol use treatment after the hospital stay (4) Metabolic acidosis: admission metabolic acidosis resolved with IV fluids on this admission (5) Chronic anemia: -microcytic, hypochromic -stable anemia (6) Diabetes mellitus, type II: -A1C 5.5 on 04/26/18 -hold metformin -novolog sliding scale per protocol while inpatient (7) HTN (hypertension): -continue lisinopril daily with parameters (8) Morbid obesity with BMI 46.6 in an adult -encourage diet and lifestyle modifications (9) DVT prophylaxis: -SCDS while inpatient Discharge Diagnosis alcohol withdrawal syndrome without complication, generalized abdominal pain, depression, morbid (severe) obesity due to excess calories, Body Mass index BMI 45 to 49.9 in adult, Anemia, Type 2 diabetes mellitus controlled without terminologist insulin use Discharge Instructions Patient is to be discharged to [facility]. Patient should take ranitidine 150 mg twice a day for abdominal discomfort Patient should avoid alcohol use Patient should take for depression escitalopram 10 mg daily, buspirone 10 mg PO TID, gabapetin 300 mg TID Patient should have outpatient therapy and psychiatry referrals as per primary care doctor Subjective Patient denies any significant abdominal pain no vomiting denies chest pain or shortness of breath. breathing on room air Heart rate is controlled Patient feels ready to go to rehabilitation center today Physical Exam 2 Vital Signs (Past 24 Hours): Last Vital Signs Temp 36.7 C 06/06/18 08:14 Pulse 96 H 06/06/18 08:14 Resp 20 06/06/18 08:14 BP 111/74 06/06/18 08:14 Pulse Ox 100 06/06/18 08:14 Constitutional: WD/WN, vitals as above Eyes: PERRL, conjunctivae normal, anicteric sclerae EOM intact bilaterally ENMT: external ear and nose normal, oropharynx normal Neck: trachea midline, no thyromegaly Respiratory: normal respiratory effort, lungs clear to auscultation Cardiovascular: Rate/Rhythm: regular rate and regular rhythm Gastrointestinal (Abdomen): normal bowel sounds, soft, nontender, no hepatosplenomegaly (some abdominal discomfort that is generalized) Musculoskeletal: no cyanosis or clubbing, extremities motor strength 5/5 Head/Neck/Chest: normocephalic and head atraumatic
--- NOTE | 2018-06-06 13:34 | Discharge Summary ---
Date of Service June 06, 2018 Admission HPI Per Admitting Provider Chief Complaint: abdominal pain, n/v x 2 days. Primary Care Provider: Logan Tsai This is a 28-year-old -[place] female who has a significant past medical history of alcohol abuse, T2 DM, HTN, mood disorder, chronic anemia, fatty liver, hx of cdiff 01/2018 who presents to [facility] secondary to abdominal pain, nausea, vomiting times 2 days. Patient was last admitted to [facility] 04/24 to 04/27/18 secondary to hematemesis. At that time she underwent EGD and was found to have nonbleeding esophageal ulcer, prior MWT. Was recommended PPI twice daily as well as Carafate 4 times daily. Unfortunately at that time due to patient's significant alcohol abuse she was discharged to [facility] alcohol rehab in [place]. She was discharged on 05/26/18, was abstinent of alcohol for 2 days when she resumed heavy hard liquor, 750 mL/day of vodka and moonshine. This lasted for a few days when she decided to abruptly stop. Approximately 1 day after stopping patient developed diffuse abdominal pain, comes and goes, sharp, rated 9 out of 10. Proceeded with nausea and yellow emesis. Further complains of palpitation, fast heartbeat, diaphoresis and tremors. Denies fever , chills, sweats, lightheadedness, dizziness, chest pain, shortness of breath, diarrhea, melena, hematochezia. Overall poor appetite past 2 days. No current sick contacts. She did have 1 episode of fall, in which she hit back of head, denies headache, visual disturbance. Admission Exam Per Admitting Provider Gen: Morbidly obese, young female, NAD, sitting up in bed, flat affected but conversing easily Head: Normocephalic, Atraumatic Eyes: Sclera normal, no conjunctival injection, PERRLA, EOMI ENT: Gross hearing intact, normal pharynx, mucous membranes dry Neck: supple, no adenopathy, No JVD, no bruit, Resp: Clear to auscultation b/l, no wheeze, rales, rhonchi. 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 Extremities: No edema bilaterally Skin: warm, moist, no rash, mild turgor, cap refill < 2sec Neuro: Alert and oriented x 3, speech normal, flat affect with crying throughout visit, cran nerve 2-12 intact grossly : deferred Principal Diagnosis alcohol withdrawal syndrome without complication, generalized abdominal pain, depression, morbid (severe) obesity due to excess calories, Body Mass index BMI 45 to 49.9 in adult, Anemia, Type 2 diabetes mellitus controlled without ocean transportation intermediary insulin use Discharge Exam Constitutional WD/WN, vitals as above Eyes PERRL, conjunctivae normal, anicteric sclerae EOM intact bilaterally ENMT external ear and nose normal, oropharynx normal Neck trachea midline, no thyromegaly Respiratory normal respiratory effort, lungs clear to auscultation Cardiovascular RRR, no murmur, no edema Gastrointestinal (Abdomen) normal bowel sounds, soft, nontender, no hepatosplenomegaly (some abdominal discomfort that is generalized) Musculoskeletal no cyanosis or clubbing, extremities motor strength 5/5 Head/Neck/Chest: normocephalic and head atraumatic Discharge Data Allergies Allergy/AdvReac Type Severity Reaction Status Date / Time pantoprazole Allergy Intermediate "ITCHY ALL Verified 02/01/18 18:56 OVER" ketorolac Allergy Mild pruritus Verified 02/01/18 18:56 ondansetron Allergy Unknown lip Verified 02/01/18 18:56 tingling morphine AdvReac Intermediate ITCHINESS Verified 02/01/18 18:56 Consultations 06/02/18 15:44 ED Decision to Admit Stat 06/02/18 18:53 Consult Case Management - Discharge Planning Routine 06/03/18 09:00 Consult Psychiatry Routine 06/04/18 08:30 Consult Gastroenterology Routine Procedures Performed Operation Date: 06/05/18 11:15 Actual Procedures p Esophagogastroduodenoscopy - Brady Damon Ordered Studies 06/02/18 18:12 CT abd pelvis IV con only Urgent Hospital Course (1) Abdominal pain: (1) Abdominal pain: Initial lab workup revealed WBC 8.1, stable hemoglobin hematocrit of 10.2 and 32.8, platelet 402, BMP consistent with metabolic acidosis, anion gap 18, CO2 12, sodium 136, potassium 3.8, BUN 9, creatinine 0.89, mild elevated AST at 45, lipase and TSH within normal limits. Urinalysis was positive for proteinuria and ketonuria. Ethyl alcohol elevated at 32. Chest x-ray was negative for acute abnormality. CT abdomen 1. No bowel wall thickening or obstruction. 2. Normal appendix. 3. No CT evidence for acute pancreatitis. 4. Cholecystectomy. 5. Hepatic steatosis. Total bilirubin mildly elevated 06/05/18 patient returns from upper endoscopy and no etiology identified for the abdominal discomfort patient tolerating diet and abdominal pain tolerable with acetaminophen onlcontinue ranitidine and sulcrafate urine analysis negative (2) Nausea and vomiting: resolved (3) Alcohol withdrawal / Depression completed gabapentin withdrawl protocol - gabapentin started as 300 mg TID as per psychiatry on 06/05/18; continue escitalopram 20 mg daily and buspirone 10 mg TID had on this hospital stay received thiamine and folic acid no acute alcohol withdrawal symptoms and heart rate generally improving - started metoprolol 12.5 mg on 06/05/18 to ameliorate the heart rate, continue this dosing was initiated on keppra 500mg bid while in rehab, continue for seziure propylaxis but no seizures while in hospital patient transitioned off telemetry floor on 06/05/18 patient to return to [place] to continue treatement for history of alcohol use treatment after the hospital stay (4) Metabolic acidosis: admission metabolic acidosis resolved with IV fluids on this admission (5) Chronic anemia: -microcytic, hypochromic -stable anemia (6) Diabetes mellitus, type II: -A1C 5.5 on 04/26/18 -hold metformin -novolog sliding scale per protocol while inpatient (7) HTN (hypertension): -continue lisinopril daily with parameters (8) Morbid obesity with BMI 46.6 in an adult -encourage diet and lifestyle modifications (9) DVT prophylaxis: -SCDS while inpatient Discharge Diagnosis alcohol withdrawal syndrome without complication, generalized abdominal pain, depression, morbid (severe) obesity due to excess calories, Body Mass index BMI 45 to 49.9 in adult, Anemia, Type 2 diabetes mellitus controlled without usp insulin use Discharge Instructions Patient is to be discharged to [facility]. Patient should take ranitidine 150 mg twice a day for abdominal discomfort Patient should avoid alcohol use Patient should take for depression escitalopram 10 mg daily, buspirone 10 mg PO TID, gabapetin 300 mg TID Patient should have outpatient therapy and psychiatry referrals as per primary care doctor Total Time Total Time Spent Total Time Spent (In Minutes): 40 minutes Total Time Includes: Examination of the Patient, Discharge Planning and Medication Reconciliation Discharge Plan Discharge Items Patient Disposition: Transfer Inpatient Rehab Fac Reason For Visit: ETOH WITHDRAWL Discharge Diagnosis: alcohol withdrawal syndrome without complication, generalized abdominal pain, depression, morbid (severe) obesity due to excess calories, Body Mass index BMI 45 to 49.9 in adult, Anemia, Type 2 diabetes mellitus controlled without ocean transportation intermediary insulin use Condition: Good Discharge Goals: Improve disease control Activity: Resume your previous activity Non-emergency contact: Primary Care Provider Call non-emergency contact if: you have any medication questions Diet: Carb Consistent or DM2 Addtl Provider Instructions: Patient is to be discharged to [facility]. Patient should take ranitidine 150 mg twice a day for abdominal discomfort Patient should avoid alcohol use Patient should take for depression escitalopram 10 mg daily, buspirone 10 mg PO TID, gabapetin 300 mg TID Patient should have outpatient therapy and psychiatry referrals as per primary care doctor Prescriptions: New ranitidine HCl 150 mg Tablet 150 mg PO BID 30 Days Qty: 60 RF: 0 buspirone 10 mg tablet 10 mg PO TID 30 Days Qty: 90 RF: 0 gabapentin 300 mg Capsule 300 mg PO TID 30 Days Qty: 90 RF: 0 metoprolol tartrate 25 mg Tablet 12.5 mg PO QAM 30 Days Qty: 15 RF: 0 Continue polyethylene glycol 3350 [Miralax] 17 gram Powder In Packet 17 g PO DAILY PRN (Reason: Constipation) RF: 0 levetiracetam [Keppra] 500 mg tablet 500 mg PO BID RF: 0 sucralfate [Carafate] 1 gram tablet 1 g PO ACHS RF: 0 lisinopril [Zestril] 5 mg tablet 5 mg PO DAILY RF: 0 metformin [Glucophage XR] 500 mg tablet extended release 24 hr 500 mg PO DAILY RF: 0 docusate sodium 100 mg Tablet 100 mg PO BID PRN (Reason: Constipation) RF: 0 escitalopram oxalate 20 mg tablet 20 mg PO DAILY RF: 0 Discontinued buspirone 10 mg tablet 10 mg PO BID RF: 0 omeprazole 20 mg capsule,delayed release(DR/EC) 20 mg PO BID RF: 0 Stand-Alone Forms: [facility] Discharge Orders: Discharge Order (Routine); Ordered 06/06/18 Ordered By: Lawrence Vences Skilled Items Patient informed of condition?: Yes DNR: No Discharge Level of Care: Acute rehab Communicable Disease: No Discharge Prognosis: Stable Admission Data Admit Date/Time: 06/02/18 16:56 Attending Provider: Lawrence Vences Admit Provider: Johan Silvestre Primary Care Provider: Logan Tsai Other Providers: Johan Silvestre ; Belén Etienne ; Basil Young Service: Medical
[2018-06-06] MEDS ORDERED: GABAPENTIN 300 MG CAP PO SCH (21:00)
== END 2018-06-06 14:05 | DRG 897 ==
LOC: ED 14:08 → 2S 16:56 → 4W 06-05 14:37

== ENCOUNTER 2018-07-21 21:18 | Inpatient (IN) ==
[2018-07-21] MEDS ORDERED: PROMETHAZINE 25 MG/51 ML BAG IV STA (22:01)
[2018-07-21] MEDS ORDERED: HYDROmorphone INJ 1 MG/ML SYRINGE IV STA (22:01)
[2018-07-21 22:09] LABS: Hematocrit (blood only) 32.9 % (37-47); Hemoglobin 10.3 g/dL (12.0-16.0); Mean Corpuscular Hgb Conc 31.3 g/dL (32-36); Mean Corpuscular Volume 72.6 fL (80-100); Mean Platelet Volume 9.8 fL (7.4-10.4); Platelet Count 226 K/uL (130-400); RDW Coefficient of Variation 22.9 % (11.5-14.5); RDW Standard Deviation 59.8 fL (36.4-46.3); Red Blood Count 4.53 M/uL (4.2-5.4); White Blood Count 5.02 K/uL (4.8-10.8)
--- NOTE | 2018-07-21 22:10 | Emergency Department Note ---
History of Present Illness General Chief complaint: Vomiting Stated complaint: vomit, abdominal pain, dehydrated, cant eat Time Seen by Provider: 07/21/18 21:55 History of Present Illness Maximum Pain Intensity: 10 This is a 28-year-old female that presents to the emergency department via private vehicle with complaints of "vomiting, abdominal pain, dehydrated, cannot eat". The patient notes that she has a history of alcohol abuse. She had 2 recent inpatient stays at [facility] for rehabilitation. She states that they were from April 25 to May 31, then June 03 through 06 of July. She states that she was seen earlier this week but now cannot keep anything down. She states that she has been shaking a lot, and her last drink of alcohol was yesterday. She notes that she was drinking about one full bottle of what she believed was moonshine daily. She states that she now has diffuse abdominal pain noting a history of pancreatitis, cannot keep food or water down and is tried p.o. Phenergan without success. She currently rates the abdominal pain diffusely as a 10/10. She also notes increased shakiness. Home Medications Home Medications Medication Instructions Recorded Confirmed Type levetiracetam [Keppra] 500 mg PO BID 06/02/18 07/21/18 History lisinopril [Zestril] 5 mg PO QAM 06/02/18 07/21/18 History metformin [Glucophage XR] 500 mg PO QAM 06/02/18 07/21/18 History polyethylene glycol 3350 [Miralax] 17 g PO DAILY PRN 06/02/18 07/21/18 History sucralfate [Carafate] 1 g PO ACHS 06/02/18 07/21/18 History buspirone 10 mg PO BID 07/11/18 07/21/18 History folic acid 1 mg PO DAILY 07/21/18 07/21/18 History multivitamin 1 tab PO DAILY 07/21/18 07/21/18 History Allergies Allergy/AdvReac Type Severity Reaction Status Date / Time pantoprazole Allergy Intermediate "ITCHY ALL Verified 07/21/18 23:06 OVER" ketorolac Allergy Mild pruritus Verified 07/21/18 23:06 ondansetron Allergy Unknown lip Verified 07/21/18 23:06 tingling morphine AdvReac Intermediate ITCHINESS Verified 07/21/18 23:06 Past Med/Surg History Medical History Chronic anemia Diabetes mellitus, type II (Chronic) Abnormal LFTs (liver function tests) (Chronic) Hx of pancreatitis (Chronic) Alcohol abuse (Chronic) Uterine fibroid (Chronic) Hepatic steatosis (Chronic) Morbid obesity (Chronic) Abdominal pain Double vision Nausea and vomiting Weakness Surgical History H/O esophagogastroduodenoscopy (Chronic) Most recent 05/09: - Non-bleeding esophageal ulcer, likely esophagitis or prior MWT. - Normal stomach. - Normal duodenal bulb and second portion of the duodenum. S/P cholecystectomy (Chronic) Family History Father T2DM (type 2 diabetes mellitus) Mother No problems noted. Other FHx: alcoholism No pertinent family history Social History Preferred Language: Slovenian Beliefs That Will Affect Care: None marital status: Single Current Living Situation: Alone current occupation: [employer] employee Feels Safe at Home: Yes Smoking Status: Never smoker Hx Alcohol Use: Yes (recent went through Rehab 04/27/18-05/28/18) Hx Substance Use: No Review of Systems A total of 10 systems reviewed and were otherwise negative Physical Exam Vital Signs Vital Signs - 24 hr 07/21/18 21:22 07/21/18 21:49 07/21/18 21:54 Temperature 36.7 C Temperature Source Oral Sepsis Recent Fever Within 48 Hours No Sepsis New/Unexplained Change in Mental Status No Sepsis Action Taken by Nursing No Action Required Pulse Rate 152 H 117 H 106 H Pulse Rate from SpO2 Sensor 120 H 107 H Pulse Rhythm Regular Pulse Strength Normal Respiratory Rate 22 20 26 H Respiratory Effort / Characteristics Non-Labored Spontaneous Respiratory Depth Normal Respiratory Pattern Regular Blood Pressure 135/115 H 152/106 H Blood Pressure Mean 121 121 Blood Pressure Position Sitting Pulse Oximetry 99 100 100 Oxygen Delivery Method Room Air 07/21/18 22:00 07/21/18 22:02 07/21/18 22:10 Temperature Temperature Source Sepsis Recent Fever Within 48 Hours Sepsis New/Unexplained Change in Mental Status Sepsis Action Taken by Nursing Pulse Rate 122 H 116 H 104 H Pulse Rate from SpO2 Sensor 240 H 197 H Pulse Rhythm Regular Pulse Strength Respiratory Rate 22 26 H Respiratory Effort / Characteristics Respiratory Depth Respiratory Pattern Blood Pressure 163/125 H Blood Pressure Mean 137 Blood Pressure Position Pulse Oximetry 99 100 100 Oxygen Delivery Method Room Air 07/21/18 22:20 07/21/18 22:30 07/21/18 22:40 Temperature Temperature Source Sepsis Recent Fever Within 48 Hours Sepsis New/Unexplained Change in Mental Status Sepsis Action Taken by Nursing Pulse Rate 121 H 96 H 108 H Pulse Rate from SpO2 Sensor 122 H 99 H 105 H Pulse Rhythm Pulse Strength Respiratory Rate 25 H 30 H 26 H Respiratory Effort / Characteristics Respiratory Depth Respiratory Pattern Blood Pressure 151/98 H Blood Pressure Mean 115 Blood Pressure Position Pulse Oximetry 100 100 100 Oxygen Delivery Method 07/21/18 22:50 07/21/18 23:00 Temperature Temperature Source Sepsis Recent Fever Within 48 Hours Sepsis New/Unexplained Change in Mental Status Sepsis Action Taken by Nursing Pulse Rate 108 H 106 H Pulse Rate from SpO2 Sensor 108 H 106 H Pulse Rhythm Pulse Strength Respiratory Rate 21 23 Respiratory Effort / Characteristics Respiratory Depth Respiratory Pattern Blood Pressure 156/109 H Blood Pressure Mean 124 Blood Pressure Position Pulse Oximetry 100 100 Oxygen Delivery Method VITAL SIGNS - Vital signs and nursing notes were reviewed. Afebrile. Patient is tachycardic and hypertensive. GENERAL -28-year-old female appearing her stated age who is in no acute distress but is shaking and appears anxious. Communicates well with provider and answers questions appropriately. SKIN - Without rashes. No meningeal or petechial rash. HEAD - NC/AT. EYES - PERRL with EOMI bilaterally. Sclera anicteric. EARS - No deformities of external structures noted on gross examination bilaterally. NOSE - Midline and without cyanosis. No epistaxis or purulent drainage noted. MOUTH/OROPHARYNX - Without perioral cyanosis. Buccal mucosa pink and moist and without leukoplakia. Tongue midline with equal elevation of palate bilaterally. No tonsillar hypertrophy, erythema, or exudates noted. Fair dentition noted. NECK - Neck with FROM. Supple to palpation. No lymphadenopathy noted. No nuchal rigidity. LUNGS - Chest wall symmetric without accessory muscle use, intercostals retractions, or central cyanosis. Normal vesicular breath sounds CTA B/L. No wheezes, rales, or rhonchi appreciated. CARDIAC - RRR with S1/S2. No murmur, rubs, or gallops appreciated. ABDOMEN - Abdominal contour normal without pulsations or visible masses. BS n ormoactive all four quadrants. There is diffuse generalized abdominal tenderness. The abdomen is soft and nonrigid. No palpable masses, hepatosplenomegaly, or ascites noted. EXTREMITIES - No clubbing or peripheral cyanosis. No pretibial edema present. +5/5 strength noted in UE/LE bilaterally. NEUROLOGIC - Cranial nerves II through XII grossly intact. Sensory intact to light touch throughout. PSYCH - A&O and cooperates fully with examiner. Pt is very pleasant and interacts well with examiner. Course Administered Medications Discontinued Medications Clonidine HCl (Catapres) 0.1 mg PO NOW ONE Stop: 07/21/18 23:40 Last Admin: 07/22/18 00:24 Dose: 0.1 mg Documented by: [id number] Gabapentin (Neurontin) 1,200 mg PO NOW ONE Stop: 07/21/18 23:56 Last Admin: 07/22/18 00:56 Dose: 1,200 mg Documented by: [id number] Hydromorphone HCl (Dilaudid) 1 mg IV NOW STA Stop: 07/21/18 22:02 Last Admin: 07/21/18 23:29 Dose: 1 mg Documented by: [id number] Promethazine HCl (Phenergan) 25 mg in 51 mls @ 204 mls/hr IV NOW STA Stop: 07/21/18 22:15 Last Infusion: 07/21/18 22:27 Dose: 0 mls/hr Documented by: [id number] Admin: 07/21/18 22:12 Dose: 204 mls/hr Documented by: [id number] Sodium Chloride (Nss 1000ml) 1,000 mls @ 999 mls/hr IV .Q1H1M JOSE Stop: 07/21/18 23:15 Last Infusion: 07/21/18 23:08 Dose: 0 mls/hr Documented by: [id number] Admin: 07/21/18 22:12 Dose: 999 mls/hr Documented by: [id number] Lorazepam (Ativan) 2 mg in 4 mls @ 4 mls/min IV NOW STA Stop: 07/21/18 22:40 Last Admin: 07/21/18 22:45 Dose: 4 mls/min Documented by: [id number] Magnesium Sulfate/Dextrose (Magnesium Sulfate / D5w) 1 gm in 100 mls @ 100 mls/hr IV ONE ONE Stop: 07/22/18 00:23 Last Admin: 07/22/18 00:27 Dose: 100 mls/hr Documented by: [id number] Potassium Chloride (K Gregorio / Wtr) 10 meq in 100 mls @ 100 mls/hr IV ONE ONE Stop: 07/22/18 00:23 Last Admin: 07/22/18 00:27 Dose: 100 mls/hr Documented by: [id number] Potassium Chloride (Klor-Con M20) 20 meq PO NOW STA Stop: 07/21/18 23:41 Last Admin: 07/22/18 00:23 Dose: 20 meq Documented by: [id number] Medical Decision Making Laboratory Data Result diagrams: 07/21/18 21:50 07/21/18 21:50 Lab Results 07/21/18 07/21/18 07/21/18 Range/Units 21:50 21:50 21:50 WBC 5.02 (4.8-10.8) K/uL RBC 4.53 (4.2-5.4) M/uL Hgb 10.3 L (12.0-16.0) g/dL Hct 32.9 L (37-47) % MCV 72.6 L (80-100) fL MCH 22.7 L (25-34) pg MCHC 31.3 L (32-36) g/dL RDW Std Deviation 59.8 H (36.4-46.3) fL RDW Coeff of Mario 22.9 H (11.5-14.5) % Plt Count 226 (130-400) K/uL MPV 9.8 (7.4-10.4) fL Immature Gran % (Auto) 0.2 % Neut % (Auto) 31.4 % Lymph % (Auto) 59.2 % Irwin % (Auto) 8.2 % Eos % (Auto) 0.6 % Baso % (Auto) 0.4 % Immature Gran # (Auto) 0.01 (0.00-0.02) K/uL Neut # (Auto) 1.58 (1.4-6.5) K/uL Lymph # (Auto) 2.97 (1.2-3.4) K/uL Irwin # (Auto) 0.41 (0.11-0.59) K/uL Eos # (Auto) 0.03 (0-0.5) K/uL Baso # (Auto) 0.02 (0-0.2) K/uL Anisocytosis Present Target Cells 1+ Sodium 134 L (136-145) mmol/L Potassium 3.2 L (3.5-5.1) mmol/L Chloride 98 (98-107) mmol/L Carbon Dioxide 21 (21-32) mmol/L Anion Gap 14.0 H (3-11) BUN 8 (7-18) mg/dl Creatinine 0.63 (0.6-1.2) mg/dl Est Cr Clr Drug Dosing 175.5 ml/min Est GFR ( Amer) 139.5 Est GFR (Non-Af Amer) 120.4 BUN/Creatinine Ratio 12.7 (10-20) Glucose 116 H (70-99) mg/dl Calcium 7.9 L (8.5-10.1) mg/dl Magnesium 1.4 L (1.8-2.4) mg/dl Total Bilirubin 0.9 (0.2-1) mg/dl AST 48 H (15-37) U/L ALT 36 (12-78) U/L Alkaline Phosphatase 76 (45-117) U/L Troponin I < 0.015 (0-0.045) ng/ml Total Protein 8.2 (6.4-8.2) gm/dl Albumin 3.4 (3.4-5.0) gm/dl Globulin 4.8 H (2.5-4.0) gm/dl Albumin/Globulin Ratio 0.7 L (0.9-2) Amylase Cancelled 17 L Lipase 55 L (73-393) U/L Urine Color Urine Appearance (Clear) Urine pH (4.5-7.5) Ur Specific [place] (1.000-1.030) Urine Protein (Negative) Urine Glucose (UA) (Negative) Urine Ketones (Negative) Urine Blood (Negative) Urine Nitrite (Negative) Urine Bilirubin (Negative) Urine Urobilinogen (Negative) Ur Leukocyte Esterase (Negative) Urine WBC (Auto) (0-5) /hpf Urine RBC (Auto) (0-4) /hpf U Hyaline Cast (Auto) (0-5) /lpf U Epithel Cells (Auto) (0-5) /lpf Urine Bacteria (Auto) (Negative) POC Ur Test (NEG) Urine Opiates Screen (Neg) Ur Methadone, Qual (Neg) Urine Barbiturates (Neg) Ur Phencyclidine (PCP) (Neg) U Amphetamin/Meth Scrn (Neg) MDMA (Ecstasy) Screen (Neg) U Benzodiazepines Scrn (Neg) Ur Cocaine Metabolite (Neg) U Marijuana (THC) Screen (Neg) Ethyl Alcohol mg/dL (0-3) mg/dl 07/21/18 07/22/18 07/22/18 Range/Units 22:21 00:03 00:03 WBC (4.8-10.8) K/uL RBC (4.2-5.4) M/uL Hgb (12.0-16.0) g/dL Hct (37-47) % MCV (80-100) fL MCH (25-34) pg MCHC (32-36) g/dL RDW Std Deviation (36.4-46.3) fL RDW Coeff of Mario (11.5-14.5) % Plt Count (130-400) K/uL MPV (7.4-10.4) fL Immature Gran % (Auto) % Neut % (Auto) % Lymph % (Auto) % Irwin % (Auto) % Eos % (Auto) % Baso % (Auto) % Immature Gran # (Auto) (0.00-0.02) K/uL Neut # (Auto) (1.4-6.5) K/uL Lymph # (Auto) (1.2-3.4) K/uL [place] # (Auto) (0.11-0.59) K/uL Eos # (Auto) (0-0.5) K/uL Baso # (Auto) (0-0.2) K/uL Anisocytosis Target Cells Sodium (136-145) mmol/L Potassium (3.5-5.1) mmol/L Chloride (98-107) mmol/L Carbon Dioxide (21-32) mmol/L Anion Gap (3-11) BUN (7-18) mg/dl Creatinine (0.6-1.2) mg/dl Est Cr Clr Drug Dosing ml/min Est GFR ( Amer) Est GFR (Non-Af Amer) BUN/Creatinine Ratio (10-20) Glucose (70-99) mg/dl Calcium (8.5-10.1) mg/dl Magnesium (1.8-2.4) mg/dl Total Bilirubin (0.2-1) mg/dl AST (15-37) U/L ALT (12-78) U/L Alkaline Phosphatase (45-117) U/L Troponin I (0-0.045) ng/ml Total Protein (6.4-8.2) gm/dl Albumin (3.4-5.0) gm/dl Globulin (2.5-4.0) gm/dl Albumin/Globulin Ratio (0.9-2) Amylase Lipase (73-393) U/L Urine Color Yellow Urine Appearance Cloudy H (Clear) Urine pH 6.5 (4.5-7.5) Ur Specific [place] 1.031 H (1.000-1.030) Urine Protein 2+ H (Negative) Urine Glucose (UA) Negative (Negative) Urine Ketones 1+ H (Negative) Urine Blood Trace H (Negative) Urine Nitrite Negative (Negative) Urine Bilirubin Negative (Negative) Urine Urobilinogen Negative (Negative) Ur Leukocyte Esterase Negative (Negative) Urine WBC (Auto) 1-5 (0-5) /hpf Urine RBC (Auto) 5-10 H (0-4) /hpf U Hyaline Cast (Auto) 5-10 H (0-5) /lpf U Epithel Cells (Auto) >30 H (0-5) /lpf Urine Bacteria (Auto) 1+ H (Negative) POC Ur Test NEG (NEG) Urine Opiates Screen (Neg) Ur Methadone, Qual (Neg) Urine Barbiturates (Neg) Ur Phencyclidine (PCP) (Neg) U Amphetamin/Meth Scrn (Neg) MDMA (Ecstasy) Screen (Neg) U Benzodiazepines Scrn (Neg) Ur Cocaine Metabolite (Neg) U Marijuana (THC) Screen (Neg) Ethyl Alcohol mg/dL 80.2 H (0-3) mg/dl 07/22/18 Range/Units 00:03 WBC (4.8-10.8) K/uL RBC (4.2-5.4) M/uL Hgb (12.0-16.0) g/dL Hct (37-47) % MCV (80-100) fL MCH (25-34) pg MCHC (32-36) g/dL RDW Std Deviation (36.4-46.3) fL RDW Coeff of Mario (11.5-14.5) % Plt Count (130-400) K/uL MPV (7.4-10.4) fL Immature Gran % (Auto) % Neut % (Auto) % Lymph % (Auto) % [place]win % (Auto) % Eos % (Auto) % Baso % (Auto) % Immature Gran # (Auto) (0.00-0.02) K/uL Neut # (Auto) (1.4-6.5) K/uL Lymph # (Auto) (1.2-3.4) K/uL [place] # (Auto) (0.11-0.59) K/uL Eos # (Auto) (0-0.5) K/uL Baso # (Auto) (0-0.2) K/uL Anisocytosis Target Cells Sodium (136-145) mmol/L Potassium (3.5-5.1) mmol/L Chloride (98-107) mmol/L Carbon Dioxide (21-32) mmol/L Anion Gap (3-11) BUN (7-18) mg/dl Creatinine (0.6-1.2) mg/dl Est Cr Clr Drug Dosing ml/min Est GFR ( Amer) Est GFR (Non-Af Amer) BUN/Creatinine Ratio (10-20) Glucose (70-99) mg/dl Calcium (8.5-10.1) mg/dl Magnesium (1.8-2.4) mg/dl Total Bilirubin (0.2-1) mg/dl AST (15-37) U/L ALT (12-78) U/L Alkaline Phosphatase (45-117) U/L Troponin I (0-0.045) ng/ml Total Protein (6.4-8.2) gm/dl Albumin (3.4-5.0) gm/dl Globulin (2.5-4.0) gm/dl Albumin/Globulin Ratio (0.9-2) Amylase Lipase (73-393) U/L Urine Color Urine Appearance (Clear) Urine pH (4.5-7.5) Ur Specific [place] (1.000-1.030) Urine Protein (Negative) Urine Glucose (UA) (Negative) Urine Ketones (Negative) Urine Blood (Negative) Urine Nitrite (Negative) Urine Bilirubin (Negative) Urine Urobilinogen (Negative) Ur Leukocyte Esterase (Negative) Urine WBC (Auto) (0-5) /hpf Urine RBC (Auto) (0-4) /hpf U Hyaline Cast (Auto) (0-5) /lpf U Epithel Cells (Auto) (0-5) /lpf Urine Bacteria (Auto) (Negative) POC Ur Test (NEG) Urine Opiates Screen Neg (Neg) Ur Methadone, Qual Neg (Neg) Urine Barbiturates Neg (Neg) Ur Phencyclidine (PCP) Neg (Neg) U Amphetamin/Meth Scrn Neg (Neg) MDMA (Ecstasy) Screen Neg (Neg) U Benzodiazepines Scrn Neg (Neg) Ur Cocaine Metabolite Neg (Neg) U Marijuana (THC) Screen Neg (Neg) Ethyl Alcohol mg/dL (0-3) mg/dl MDM Narrative Patient was seen and evaluated as above in room B2. Review was performed of nursing notes and vital signs. After obtaining a thorough history and physical examination the above work up was performed. She presents to us today with inability to keep down food, anti-medics and liquids, diffuse abdominal pain, and noting a history of alcohol abuse. She notes that she was drinking about one full bottle of moonshine daily, last ingested yesterday. She was recently at [facility] twice. She is nontoxic on exam but is tachycardic, hypertensive, and shaking. No evidence of seizure at this time. She was medicated here with Phenergan, and Ativan. She was reevaluated and persisted with some abdominal pain but her other symptoms improved. She was then given Dilaudid noting her allergies. At this time given her hypertensive state, persistent tachycardia, tremor do believe that further evaluation and management is warranted in the inpatient setting. I did discuss benefit versus risk of transfer the patient directly to a rehab facility however given her inability to keep down p.o. food or fluids despite antiemetics at home and IV here believe that further evaluation and management is warranted in the inpatient setting. I will note that I do not suspect that her abdominal pain at this time is from emergent process. I will note she had a CT scan performed of the abdomen and pelvis about 1 week ago. I do not believe that a repeat CT at this time is warranted. It is felt that the risk outweighs the benefit. 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 This was discussed with the attending physician, and subsequently the hospitalist. I also did perform a rectal exam at 0015 hrs after obtaining consent and with female bonderizer operator present, and this was negative for blood. Please refer to further documentation regarding her stay. Case was discussed with the attending physician. In the evaluation and treatment of this patient, the following differential diagnoses were considered: ASC, NV, Pneumonia, GERD, Cholecystitis, Ascending Cholangitis, Cholydocholithiasis, Bowel Obstruction, PE, alcohol withdrawal, amongst Others. Impression & Plan Alcohol withdrawal, Nausea and vomiting, Alcohol abuse, Abdominal pain Discharge Plan Visit Data Chief Complaint: Vomiting Stated Complaint: vomit, abdominal pain, dehydrated, cant eat ED Provider: Kaleb Sheth ED Midlevel Provider: Benny Nelson Discharge Problem: Alcohol withdrawal, Nausea and vomiting, Alcohol abuse, Abdominal pain Patient Disposition: Admitted As Inpatient Condition: Good Forms Stand Alone Forms: My [facility] [employer] Prescriptions Prescriptions: No Action polyethylene glycol 3350 [Miralax] 17 gram Powder In Packet 17 g PO DAILY PRN (Reason: Constipation) RF: 0 levetiracetam [Keppra] 500 mg tablet 500 mg PO BID RF: 0 sucralfate [Carafate] 1 gram tablet 1 g PO ACHS RF: 0 lisinopril [Zestril] 5 mg tablet 5 mg PO QAM RF: 0 metformin [Glucophage XR] 500 mg tablet extended release 24 hr 500 mg PO QAM RF: 0 buspirone 10 mg tablet 10 mg PO BID RF: 0 folic acid 1 mg Tablet 1 mg PO DAILY RF: 0 multivitamin Tablet 1 tab PO DAILY RF: 0 Referrals Referrals: Logan Tsai [Primary Care Provider] -
[2018-07-21] MEDS ORDERED: SODIUM CHLORIDE 0.9% 1000ML 1,000 ML IV SCH (22:15)
[2018-07-21 22:24] LABS: Alanine Aminotransferase 36 U/L (12-78); Albumin Level 3.4 gm/dl (3.4-5.0); Amylase 17 U/L (25-115); Aspartate Aminotransferase 48 U/L (15-37); BUN Creatinine Ratio 12.7 (10-20); Blood Urea Nitrogen 8 mg/dl (7-18); Calcium 7.9 mg/dl (8.5-10.1); Carbon Dioxide 21 mmol/L (21-32); Chloride 98 mmol/L (98-107); Creatinine Clr Calc Pharmacy 175.5 ml/min; Est GFR (African American) 139.5; Est GFR (Non-African American) 120.4; Glucose 116 mg/dl (70-99); Magnesium 1.4 mg/dl (1.8-2.4); Potassium 3.2 mmol/L (3.5-5.1); Sodium 134 mmol/L (136-145)
[2018-07-21 22:29] LABS: Albumin Globulin Ratio 0.7 (0.9-2); Alkaline Phosphatase 76 U/L (45-117); Bilirubin,Total 0.9 mg/dl (0.2-1); Globulin 4.8 gm/dl (2.5-4.0); Total Protein 8.2 gm/dl (6.4-8.2); Troponin I < 0.015 ng/ml (0-0.045)
[2018-07-21] MEDS ORDERED: LORazepam 2 MG/4 ML VIAL IV STA (22:39)
[2018-07-21 22:49] LABS: Anisocytosis Present; Basophils # (auto) 0.02 K/uL (0-0.2); Basophils % (auto) 0.4 %; Eosinophils # (auto) 0.03 K/uL (0-0.5); Eosinophils % (auto) 0.6 %; Immature Granulocytes # (auto) 0.01 K/uL (0.00-0.02); Immature Granulocytes % (auto) 0.2 %; Lymphocytes # (auto) 2.97 K/uL (1.2-3.4); Lymphocytes % (auto) 59.2 %; Monocytes # (auto) 0.41 K/uL (0.11-0.59); Monocytes % (auto) 8.2 %; Neutrophils # (auto) 1.58 K/uL (1.4-6.5); Neutrophils % (auto) 31.4 %; Target Cells 1+
[2018-07-21] MEDS ORDERED: POTASSIUM CHLORIDE / WTR 10 MEQ/100 ML PLCT IV ONE (23:24)
[2018-07-21] MEDS ORDERED: MAGNESIUM SULFATE / D5W 1 GM/100 ML BAG IV ONE (23:24)
[2018-07-21] MEDS ORDERED: GABAPENTIN 1200MG ALCOHOL WITHDRAWAL LOAD PO STA (23:35)
[2018-07-21] MEDS ORDERED: LORazepam 3 MG/6 ML VIAL IV PRN (23:35)
[2018-07-21] MEDS ORDERED: LORazepam 2 MG/4 ML VIAL IV PRN (23:35)
[2018-07-21] MEDS ORDERED: cloNIDine HCl 0.1 MG TAB PO ONE (23:39)
[2018-07-21] MEDS ORDERED: POTASSIUM CHLORIDE 20 MEQ TABCR PO STA (23:40)
[2018-07-21] MEDS ORDERED: ATIVAN IV ALCOHOL WITHDRAWL IV SCH (23:45)
[2018-07-21] MEDS ORDERED: GABAPENTIN 600 MG TAB PO ONE (23:55)
[2018-07-22 00:14] LABS: Appearance Urine Cloudy (Clear); Bacteria Urine Automated 1+ (Negative); Bilirubin Urine Negative (Negative); Blood Urine Trace (Negative); Color Urine Yellow; Epithelial Cell Urine Auto >30 /lpf (0-5); Glucose Urine UA Negative (Negative); Ketones Urine 1+ (Negative); Leukocyte Esterase Urine Negative (Negative); Nitrite Urine Negative (Negative); Protein Urine 2+ (Negative); Specific Gravity Urine 1.031 (1.000-1.030); Urobilinogen Urine Negative (Negative); pH Urine 6.5 (4.5-7.5)
[2018-07-22 00:36] LABS: Amphetamines+Metham, Urine Neg (Neg); Barbiturates, Urine Neg (Neg); Benzodiazepine, Urine Neg (Neg); Cocaine, Urine Neg (Neg); MDMA (Ecstacy), Urine Neg (Neg); Methadone, Urine Neg (Neg); Opiate, Urine Neg (Neg); Phencyclidine, Urine Neg (Neg)
--- NOTE | 2018-07-22 00:53 | History & Physical Report ---
Date of Service July 22, 2018 Assessment & Plan (1) Alcohol withdrawal: Recurrent admissions Generalized abdominal pain, diarrhea Rule out recurrent C. difficile colitis Hypokalemia secondary to diarrheal illness Hypertension, elevated secondary to alcohol withdrawal DM 2, on oral meds Well-controlled as of recent inpatient hemoglobin A1c of 5.5 last April 2018 Medical telemetry DT precautions Clonidine [address] abdomen pelvis RE abdominal pain, diarrhea Stool C. difficile Replace electrolytes ISS, BG goal 140-180 DVT prophylaxis. Lovenox subcu Full code History of Present Illness Chief Complaint: Abdomen pain , nausea, vomiting, diarrhea Primary Care Provider: Logan Tsai History obtained from patient and records. Medical history is significant for alcohol abuse, hypertension, DM 2, on oral meds, mood disorder, hx pancreatitis, fatty liver as per records, chronic anemia (baseline hemoglobin 10-11). Recent confinement May 2018 for alcohol withdrawal. Normal EGD at time of confinement. Patient discharged to alcohol rehab at [facility]. Patient completed another stay at alcohol rehab 2 weeks ago. Patient started drinking again 2 days upon returning home. 2 days history of generalized achy abdominal pain with nausea, bilious emesis, loose dark stools not grossly bloody. No chest pain, no S OB. Patient noted palpitations at home. Allergies Allergy/AdvReac Type Severity Reaction Status Date / Time pantoprazole Allergy Intermediate "ITCHY ALL Verified 07/21/18 23:06 OVER" ketorolac Allergy Mild pruritus Verified 07/21/18 23:06 ondansetron Allergy Unknown lip Verified 07/21/18 23:06 tingling morphine AdvReac Intermediate ITCHINESS Verified 07/21/18 23:06 Home Medications Home Medications Medication Instructions Recorded Confirmed Type levetiracetam [Keppra] 500 mg PO BID 06/02/18 07/21/18 History lisinopril [Zestril] 5 mg PO QAM 06/02/18 07/21/18 History metformin [Glucophage XR] 500 mg PO QAM 06/02/18 07/21/18 History polyethylene glycol 3350 [Miralax] 17 g PO DAILY PRN 06/02/18 07/21/18 History sucralfate [Carafate] 1 g PO ACHS 06/02/18 07/21/18 History buspirone 10 mg PO BID 07/11/18 07/21/18 History folic acid 1 mg PO DAILY 07/21/18 07/21/18 History multivitamin 1 tab PO DAILY 07/21/18 07/21/18 History Past Med/Surg History Medical History Chronic anemia Diabetes mellitus, type II (Chronic) Abnormal LFTs (liver function tests) (Chronic) Hx of pancreatitis (Chronic) Alcohol abuse (Chronic) Uterine fibroid (Chronic) Hepatic steatosis (Chronic) Morbid obesity (Chronic) Abdominal pain Double vision Nausea and vomiting Weakness Surgical History H/O esophagogastroduodenoscopy (Chronic) Most recent 05/09: - Non-bleeding esophageal ulcer, likely esophagitis or prior MWT. - Normal stomach. - Normal duodenal bulb and second portion of the duodenum. S/P cholecystectomy (Chronic) Family History Father T2DM (type 2 diabetes mellitus) Mother No problems noted. Other FHx: alcoholism No pertinent family history Social History Communication Ability: Effective Beliefs That Will Affect Care: None marital status: Single Current Living Situation: Alone current occupation: [employer] employee Feels Safe at Home: Yes Safety Concerns: Feels Safe At This Time Smoking Status: Never smoker Hx Alcohol Use: Yes Hx Substance Use: No Review of Systems As per HPI, all 10 systems reviewed, all other ROS negative Physical Exam Vital Signs (Past 24 Hours): Last Vital Signs Temp 36.7 C 07/21/18 21:22 Pulse 106 H 07/21/18 23:00 Resp 23 07/21/18 23:00 BP 156/109 H 07/21/18 23:00 Pulse Ox 100 07/21/18 23:00 Physical Exam: GENERAL: Obese, uncomfortable, no respiratory distress, tremulous SKIN: Pallor, warm HEENT: Pale palpebral conjunctivae, no ptosis, dry buccal mucosa NECK : Supple, short, no tenderness CHEST : Decreased breath sounds, no tenderness HEART : Tachycardic, no obvious murmurs ABDOMEN: Some distention, nonspecific tenderness on light palpation Rectal exam as per ER provider : Dark stool, heme positive EXTREMITIES : minimal LE swelling, no tenderness, no other conspicuous d eformities noted NEUROLOGIC : Coherent, no facial asymmetry, tremulous Results & Data Laboratory Results Laboratory Results WBC 5.02 K/uL (4.8-10.8) 07/21/18 21:50 RBC 4.53 M/uL (4.2-5.4) 07/21/18 21:50 Hgb 10.3 g/dL (12.0-16.0) L 07/21/18 21:50 Hct 32.9 % (37-47) L 07/21/18 21:50 MCV 72.6 fL (80-100) L 07/21/18 21:50 MCH 22.7 pg (25-34) L 07/21/18 21:50 MCHC 31.3 g/dL (32-36) L 07/21/18 21:50 RDW Std Deviation 59.8 fL (36.4-46.3) H 07/21/18 21:50 RDW Coeff of Mario 22.9 % (11.5-14.5) H 07/21/18 21:50 Plt Count 226 K/uL (130-400) 07/21/18 21:50 MPV 9.8 fL (7.4-10.4) 07/21/18 21:50 Immature Gran % (Auto) 0.2 % 07/21/18 21:50 Neut % (Auto) 31.4 % 07/21/18 21:50 Lymph % (Auto) 59.2 % 07/21/18 21:50 [place] % (Auto) 8.2 % 07/21/18 21:50 Eos % (Auto) 0.6 % 07/21/18 21:50 Baso % (Auto) 0.4 % 07/21/18 21:50 Immature Gran # (Auto) 0.01 K/uL (0.00-0.02) 07/21/18 21:50 Neut # (Auto) 1.58 K/uL (1.4-6.5) 07/21/18 21:50 Lymph # (Auto) 2.97 K/uL (1.2-3.4) 07/21/18 21:50 [place] # (Auto) 0.41 K/uL (0.11-0.59) 07/21/18 21:50 Eos # (Auto) 0.03 K/uL (0-0.5) 07/21/18 21:50 Baso # (Auto) 0.02 K/uL (0-0.2) 07/21/18 21:50 Anisocytosis Present 07/21/18 21:50 Target Cells 1+ 07/21/18 21:50 Sodium 134 mmol/L (136-145) L 07/21/18 21:50 Potassium 3.2 mmol/L (3.5-5.1) L 07/21/18 21:50 Chloride 98 mmol/L (98-107) 07/21/18 21:50 Carbon Dioxide 21 mmol/L (21-32) 07/21/18 21:50 Anion Gap 14.0 (3-11) H 07/21/18 21:50 BUN 8 mg/dl (7-18) 07/21/18 21:50 Creatinine 0.63 mg/dl (0.6-1.2) 07/21/18 21:50 Est Cr Clr Drug Dosing 175.5 ml/min 07/21/18 21:50 Est GFR ( Amer) 139.5 07/21/18 21:50 Est GFR (Non-Af Amer) 120.4 07/21/18 21:50 BUN/Creatinine Ratio 12.7 (10-20) 07/21/18 21:50 Glucose 116 mg/dl (70-99) H 07/21/18 21:50 Calcium 7.9 mg/dl (8.5-10.1) L 07/21/18 21:50 Magnesium 1.4 mg/dl (1.8-2.4) L 07/21/18 21:50 Total Bilirubin 0.9 mg/dl (0.2-1) 07/21/18 21:50 AST 48 U/L (15-37) H 07/21/18 21:50 ALT 36 U/L (12-78) 07/21/18 21:50 Alkaline Phosphatase 76 U/L (45-117) 07/21/18 21:50 Troponin I < 0.015 ng/ml (0-0.045) 07/21/18 21:50 Total Protein 8.2 gm/dl (6.4-8.2) 07/21/18 21:50 Albumin 3.4 gm/dl (3.4-5.0) 07/21/18 21:50 Globulin 4.8 gm/dl (2.5-4.0) H 07/21/18 21:50 Albumin/Globulin Ratio 0.7 (0.9-2) L 07/21/18 21:50 Amylase 17 U/L (25-115) L 07/21/18 21:50 Lipase 55 U/L (73-393) L 07/21/18 21:50 Urine Color Yellow 07/22/18 00:03 Urine Appearance Cloudy (Clear) H 07/22/18 00:03 Urine pH 6.5 (4.5-7.5) 07/22/18 00:03 Ur Specific [place] 1.031 (1.000-1.030) H 07/22/18 00:03 Urine Protein 2+ (Negative) H 07/22/18 00:03 Urine Glucose (UA) Negative (Negative) 07/22/18 00:03 Urine Ketones 1+ (Negative) H 07/22/18 00:03 Urine Blood Trace (Negative) H 07/22/18 00:03 Urine Nitrite Negative (Negative) 07/22/18 00:03 Urine Bilirubin Negative (Negative) 07/22/18 00:03 Urine Urobilinogen Negative (Negative) 07/22/18 00:03 Ur Leukocyte Esterase Negative (Negative) 07/22/18 00:03 Urine WBC (Auto) 1-5 /hpf (0-5) 07/22/18 00:03 Urine RBC (Auto) 5-10 /hpf (0-4) H 07/22/18 00:03 U Hyaline Cast (Auto) 5-10 /lpf (0-5) H 07/22/18 00:03 U Epithel Cells (Auto) >30 /lpf (0-5) H 07/22/18 00:03 Urine Bacteria (Auto) 1+ (Negative) H 07/22/18 00:03 POC Ur Test NEG (NEG) 07/22/18 00:03 Urine Opiates Screen Neg (Neg) 07/22/18 00:03 Ur Methadone, Qual Neg (Neg) 07/22/18 00:03 Urine Barbiturates Neg (Neg) 07/22/18 00:03 Ur Phencyclidine (PCP) Neg (Neg) 07/22/18 00:03 U Amphetamin/Meth Scrn Neg (Neg) 07/22/18 00:03 MDMA (Ecstasy) Screen Neg (Neg) 07/22/18 00:03 U Benzodiazepines Scrn Neg (Neg) 07/22/18 00:03 Ur Cocaine Metabolite Neg (Neg) 07/22/18 00:03 U Marijuana (THC) Screen Neg (Neg) 07/22/18 00:03 Ethyl Alcohol mg/dL 80.2 mg/dl (0-3) H 07/21/18 22:21 Diagnostic Findings EKG as per my interpretation rate 95, sinus tachycardia, no ischemia
[2018-07-22] MEDS ORDERED: IOVERSOL 100ml IV PRN (01:03)
[2018-07-22] MEDS ORDERED: PROCHLORPERAZINE 1 ML IV ONE (01:17)
[2018-07-22] MEDS ORDERED: GLUCOSE 40% GEL 15 GM TUBE PO PRN (02:53)
[2018-07-22] MEDS ORDERED: DEXTROSE 50% 50 ML SYRINGE IV PRN (02:53)
[2018-07-22] MEDS ORDERED: HYDROmorphone INJ 0.5 MG/0.5 ML SYR IV PRN (02:53)
[2018-07-22] MEDS ORDERED: CARBOHYDRATES FOR HYPOGLYCEMIA PO PRN (02:53)
[2018-07-22] MEDS ORDERED: PROCHLORPERAZINE 5 MG in SYRINGE 4 ML IV PRN (02:53)
[2018-07-22] MEDS ORDERED: GLUCAGON FOR INJ 1 MG VIAL SQ PRN (02:53)
[2018-07-22] MEDS ORDERED: NSS + 20MEQ KCL 20 MEQ/1,000 ML BAG IV SCH ×3 (02:53→08:00)
[2018-07-22] MEDS ORDERED: GLUCOSE 10 TABS/TUBE PO PRN (02:53)
[2018-07-22] MEDS ORDERED: MULTI-VITAMIN INFUSION 10 ML, THIAMINE HCL 100 MG, FOLIC ACID 1 MG, POTASSIUM CHLORIDE ... IV SCH (03:00)
[2018-07-22] MEDS ORDERED: INSULIN ASPART 100 UNITS/ML 3 ML PEN SC SCH (03:00)
[2018-07-22] MEDS ORDERED: METOPROLOL TARTRATE 1 MG/ML VIAL IV STA (03:05)
[2018-07-22] MEDS: OXYCODONE HCL IR 5 MG TAB (IMMEDIATE RELEASE) PO PRN ×4 (03:19→23:06)
[2018-07-22] MEDS ORDERED: POTASSIUM CHLORIDE 20 MEQ TABCR PO STA (03:21)
[2018-07-22] MEDS: MAGNESIUM SULFATE / D5W 1 GM/100 ML BAG IV SCH ×2 (03:24→05:14)
[2018-07-22] MEDS ORDERED: FAMOTIDINE 20MG/5ML IV PUSH IV STA (05:08)
[2018-07-22] MEDS: levETIRAcetam 500 MG TAB PO SCH ×3 (05:24→20:43)
[2018-07-22 06:33] LABS: Basophils # (auto) 0.01 K/uL (0-0.2); Basophils % (auto) 0.1 %; Eosinophils # (auto) 0.03 K/uL (0-0.5); Eosinophils % (auto) 0.4 %; Hematocrit (blood only) 29.6 % (37-47); Lymphocytes # (auto) 2.87 K/uL (1.2-3.4); Lymphocytes % (auto) 41.1 %; Mean Corpuscular Hgb Conc 30.4 g/dL (32-36); Mean Corpuscular Volume 74.2 fL (80-100); Mean Platelet Volume 9.7 fL (7.4-10.4); Monocytes % (auto) 8.6 %; Neutrophils # (auto) 3.47 K/uL (1.4-6.5); Neutrophils % (auto) 49.8 %; Platelet Count 190 K/uL (130-400); RDW Coefficient of Variation 22.6 % (11.5-14.5); RDW Standard Deviation 60.1 fL (36.4-46.3); Red Blood Count 3.99 M/uL (4.2-5.4); White Blood Count 6.98 K/uL (4.8-10.8)
--- NOTE | 2018-07-22 06:35 | CT Scan Report ---
CT abd pelvis IV con only CT DOSE: 1855.96 mGy.cm HISTORY: Pain. Nausea. diffuse abd pain, diarrhea TECHNIQUE: Multiaxial CT images of the abdomen and pelvis were performed following the use of intrave nous contrast. A dose lowering technique was utilized adhering to the principles of ALARA. COMPARISON STUDY: 07/11/2017 FINDINGS: Lung bases are clear. Liver spleen and pancreas are unremarkable. Prior cholecystectomy. Ki dneys negative for hydronephrosis. Enhancement characteristics are uniform. Mild wall thickening of the a sending and transverse colon consistent with a mild nonspecific colitis . No evidence for abscess collection or obstructive change. Remainder the colon is unremarkable throu ghout. Intrauterine device within the central canal. This appears somewhat angled in orientation with the lo wer uterine segment but is unchanged from the prior study. There is no free fluid within the pelvic c ul-de-sac. IMPRESSION: 1. Mild nonspecific colitis involving the a sending and transverse colon. 2. No evidence for abscess collection or obstruction The above report was generated using voice recognition software. It may contain grammatical, syntax or spelling errors. Electronically signed by: Toro Singh M.D. 07/22/2018 6:33 AM
[2018-07-22 07:00] LABS: Anisocytosis Present; Hypochromasia Present; Microcytosis Present; Poikilocytosis Present
[2018-07-22 07:03] LABS: Albumin Level 3.2 gm/dl (3.4-5.0); Calcium 7.7 mg/dl (8.5-10.1); Creatinine Clr Calc Pharmacy 167.6 ml/min; Est GFR (African American) 137.4; Est GFR (Non-African American) 118.5; Magnesium 2.3 mg/dl (1.8-2.4); Potassium 3.3 mmol/L (3.5-5.1)
[2018-07-22 07:07] LABS: Albumin Globulin Ratio 0.7 (0.9-2); Bilirubin,Total 1.5 mg/dl (0.2-1); Globulin 4.4 gm/dl (2.5-4.0); Total Protein 7.6 gm/dl (6.4-8.2)
[2018-07-22] MEDS: MULTIVITAMIN TAB PO SCH (07:52)
[2018-07-22] MEDS: GABAPENTIN 600 MG TAB PO SCH ×3 (07:53→20:43)
[2018-07-22] MEDS: THIAMINE HCL 100 MG TAB PO SCH (07:54)
[2018-07-22] MEDS: FOLIC ACID 1 MG TAB PO SCH (07:54)
[2018-07-22] MEDS: SUCRALFATE 1 GM TAB PO SCH ×4 (07:54→20:42)
[2018-07-22] MEDS: INSULIN ASPART 100 UNITS/ML 3 ML PEN SC SCH ×4 (07:56→20:47)
[2018-07-22] MEDS ORDERED: NSS + 20MEQ KCL 20 MEQ/1,000 ML BAG IV ONE (08:00)
[2018-07-22 08:23] LABS: INR 1.1 (0.9-1.1); Partial Thromboplastin Ratio 0.9; Partial Thromboplastin Time 23.9 Seconds (21.0-31.0); Prothrombin Time 10.9 Seconds (9.0-12.0)
[2018-07-22] MEDS ORDERED: LISINOPRIL 5 MG TAB PO SCH (09:00)
[2018-07-22] MEDS ORDERED: MULTIVITAMIN TAB PO SCH (09:00)
[2018-07-22] MEDS: ENOXAPARIN INJ 40 MG/0.4 ML SYR SQ SCH (11:08)
[2018-07-22] MEDS: CIPROFLOXACIN 500 MG TAB PO SCH ×2 (12:04→20:42)
[2018-07-22] MEDS: LORazepam 1 MG/2 ML VIAL IV PRN (12:05)
[2018-07-22] MEDS: metroNIDAZOLE 500 MG TAB PO SCH ×2 (14:15→20:42)
[2018-07-22] MEDS: ACETAMINOPHEN 325 MG TAB PO PRN (15:45)
[2018-07-22] MEDS ORDERED: cloNIDine HCl 0.1 MG TAB PO PRN (16:56)
--- NOTE | 2018-07-22 17:07 | Hospitalist Progress Note ---
Date of Service July 22, 2018 Assessment & Plan (1) Alcohol withdrawal: Alcohol Use disorder Recurrent admissions Patient interested in Rehab placement Prefers to follow up with her Psychiatrist as outpatient Continue Gabapentin Protocol Continue thiamine, folic acid Colitis: CT ABD:Mild nonspecific colitis involving the a sending and transverse colon. No evidence for abscess collection or obstruction Received IV fluids Advance diet as tolerated Started on Cipro and Flagyl Stool: Negative C.diff Hypokalemia Likely secondary to diarrhea Replace potassium monitor electrolytes Hypertension elevated secondary to alcohol withdrawal Increase Lisinopril to 10mg daily Clonidine PRN DM II: Hold PO meds Last A1C: 5.5 in Apr 2018 Continue ISS Mood Disorder: Continue Buspar DVT Px: Lovenox SQ Code Status: Full code Disposition: Patient is interested in Rehab placement catering convention services manager consulted Subjective Patient is seen and examined at bedside Complains of generalized abd pain Denies chest pain, SOB, dizziness No other complaints Patient is interested in rehab placement Physical Exam Vital Signs (Past 24 Hours): Last Vital Signs Temp 36.5 C 07/22/18 11:35 Pulse 106 H 07/22/18 11:35 Resp 22 07/22/18 11:35 BP 150/91 H 07/22/18 11:35 Pulse Ox 95 07/22/18 11:35 Physical Exam: Physical Exam: Vitals signs as noted above General Appearance:Obese, no apparent distress Head: normocephalic, Atraumatic Eyes: normal inspection, EOMI Neck: supple, Trachea midline Respiratory/Chest: Normal breath sounds, CTA Cardiovascular: S1, S2, No murmur, +Tachycardia Abdomen/GI:Soft, Non tender, Bowel sounds present Extremities/Musculoskelatal:normal inspection, no edema Neurologic/Psych:AAOX3, grossly no focal neurological deficits Skin: normal color, warm Results & Data Laboratory Results Short CBC 07/21/18 07/22/18 Range/Units 21:50 06:00 WBC 5.02 6.98 (4.8-10.8) K/uL Hgb 10.3 L 9.0 L (12.0-16.0) g/dL Hct 32.9 L 29.6 L (37-47) % Plt Count 226 190 (130-400) K/uL BMP 07/21/18 07/22/18 21:50 06:00 Sodium 134 L 132 L Potassium 3.2 L 3.3 L Chloride 98 99 Carbon Dioxide 21 22 BUN 8 7 Creatinine 0.63 0.66 Glucose 116 H 152 H Calcium 7.9 L 7.7 L Cardiac Enzymes 07/21/18 Range/Units 21:50 Troponin I < 0.015 (0-0.045) ng/ml Liver Function 07/21/18 07/22/18 Range/Units 21:50 06:00 Total Bilirubin 0.9 1.5 H D (0.2-1) mg/dl AST 48 H 54 H (15-37) U/L ALT 36 36 (12-78) U/L Alkaline Phosphatase 76 76 (45-117) U/L Albumin 3.4 3.2 L (3.4-5.0) gm/dl Urine 07/22/18 Range/Units 00:03 Urine Color Yellow Urine Appearance Cloudy H (Clear) Urine pH 6.5 (4.5-7.5) Ur Specific [place] 1.031 H (1.000-1.030) Urine Protein 2+ H (Negative) Urine Glucose (UA) Negative (Negative)
[2018-07-22] MEDS: HYDROmorphone INJ 0.5 MG/0.5 ML SYR IV PRN (20:07)
[2018-07-22] MEDS: FAMOTIDINE 20 MG TAB PO SCH (20:43)
[2018-07-22] MEDS ORDERED: OXYCODONE HCL IR 5 MG TAB (IMMEDIATE RELEASE) PO STA (23:54)
[2018-07-23] MEDS: OXYCODONE HCL IR 5 MG TAB (IMMEDIATE RELEASE) PO PRN ×3 (00:12→19:46)
[2018-07-23] MEDS: HYDROmorphone INJ 0.5 MG/0.5 ML SYR IV PRN ×3 (02:04→20:37)
[2018-07-23] MEDS: LORazepam 1 MG/2 ML VIAL IV PRN (05:32)
[2018-07-23] MEDS: GABAPENTIN 600 MG TAB PO SCH ×3 (05:33→23:52)
[2018-07-23] MEDS ORDERED: LACTATED RINGER'S 1,000 ML IV SCH (06:00)
[2018-07-23 06:59] LABS: Hematocrit (blood only) 29.5 % (37-47); Mean Corpuscular Hgb Conc 30.5 g/dL (32-36); Mean Corpuscular Volume 75.6 fL (80-100); Mean Platelet Volume 9.8 fL (7.4-10.4); Platelet Count 186 K/uL (130-400); RDW Coefficient of Variation 22.7 % (11.5-14.5); RDW Standard Deviation 61.2 fL (36.4-46.3); White Blood Count 4.03 K/uL (4.8-10.8)
[2018-07-23 07:35] LABS: Calcium 7.9 mg/dl (8.5-10.1); Creatinine Clr Calc Pharmacy 191.9 ml/min; Est GFR (Non-African American) 121.7; Potassium 3.8 mmol/L (3.5-5.1)
[2018-07-23] MEDS ORDERED: IBUPROFEN 200 MG TAB PO ONE (08:30)
[2018-07-23] MEDS: CARVEDILOL 6.25 MG TAB PO SCH ×2 (08:50→20:38)
[2018-07-23] MEDS: levETIRAcetam 500 MG TAB PO SCH ×2 (08:50→20:39)
[2018-07-23] MEDS: FAMOTIDINE 20 MG TAB PO SCH ×2 (08:50→20:39)
[2018-07-23] MEDS: LISINOPRIL 10 MG TAB PO SCH (08:51)
[2018-07-23] MEDS: metroNIDAZOLE 500 MG TAB PO SCH ×3 (08:51→20:40)
[2018-07-23] MEDS: FOLIC ACID 1 MG TAB PO SCH (08:52)
[2018-07-23] MEDS: THIAMINE HCL 100 MG TAB PO SCH (08:52)
[2018-07-23] MEDS: MULTIVITAMIN TAB PO SCH (08:52)
[2018-07-23] MEDS: CIPROFLOXACIN 500 MG TAB PO SCH ×2 (08:53→20:40)
[2018-07-23] MEDS: ENOXAPARIN INJ 40 MG/0.4 ML SYR SQ SCH (08:53)
[2018-07-23] MEDS: SUCRALFATE 1 GM TAB PO SCH ×4 (08:53→20:39)
[2018-07-23] MEDS: INSULIN ASPART 100 UNITS/ML 3 ML PEN SC SCH ×4 (08:54→20:40)
[2018-07-23] MEDS ORDERED: HYDROmorphone INJ 0.5 MG/0.5 ML SYR IV PRN (11:10)
--- NOTE | 2018-07-23 15:48 | Hospitalist Progress Note ---
Date of Service July 23, 2018 Assessment & Plan (1) Alcohol withdrawal: Alcohol Use disorder Recurrent admissions Patient interested in Rehab placement Prefers to follow up with her Psychiatrist as outpatient Continue Gabapentin Protocol Continue thiamine, folic acid Colitis: CT ABD:Mild nonspecific colitis involving the a sending and transverse colon. No evidence for abscess collection or obstruction Received IV fluids Advance diet as tolerated Continue Cipro and Flagyl Day #2 Stool: Negative C.diff Dysmenorrhea: Recent IUD placement Pain control OBGYN consulted Hypokalemia Likely secondary to diarrhea Replace potassium as needed monitor electrolytes Hypertension BP better Increased Lisinopril to 10mg daily Started on Coreg DM II: Hold PO meds Last A1C: 5.5 in Apr 2018 Continue ISS Mood Disorder: Continue Buspar DVT Px: Lovenox SQ Code Status: Full code Disposition: Patient is interested in Rehab placement client services vice president consulted Subjective Patient is seen and examined at bedside Complains of abd pain/Cramping and back pain Has Dysmenorrhea Denies chest pain, SOB, dizziness Physical Exam Vital Signs (Past 24 Hours): Last Vital Signs Temp 36.6 C 07/23/18 15:05 Pulse 94 H 07/23/18 15:05 Resp 20 07/23/18 15:05 BP 139/95 07/23/18 15:05 Pulse Ox 96 07/23/18 15:05 Physical Exam: Physical Exam: Vitals signs as noted above General Appearance:Obese, no apparent distress Head: normocephalic, Atraumatic Eyes: normal inspection, EOMI Neck: supple, Trachea midline Respiratory/Chest: Normal breath sounds, CTA Cardiovascular: S1, S2, No murmur, +Tachycardia Abdomen/GI:Soft, generalized tender, Bowel sounds present Extremities/Musculoskelatal:normal inspection, no edema Neurologic/Psych:AAOX3, grossly no focal neurological deficits Skin: normal color, warm Results & Data Laboratory Results Short CBC 07/23/18 Range/Units 06:30 WBC 4.03 L (4.8-10.8) K/uL Hgb 9.0 L (12.0-16.0) g/dL Hct 29.5 L (37-47) % Plt Count 186 (130-400) K/uL BMP 07/23/18 06:30 Sodium 138 Potassium 3.8 D Chloride 106 Carbon Dioxide 23 BUN 6 L Creatinine 0.61 Glucose 120 H Calcium 7.9 L
--- NOTE | 2018-07-23 18:04 | Progress Note ---
Date of Service July 23, 2018 TERRITORY SALES MANAGER Consult dictated Pt will f/u at [facility] for IUD evaluation Physical Exam Vital Signs (Past 24 Hours): Last Vital Signs Temp 36.6 C 07/23/18 15:05 Pulse 94 H 07/23/18 15:05 Resp 20 07/23/18 15:05 BP 139/95 07/23/18 15:05 Pulse Ox 96 07/23/18 15:05
[2018-07-24] MEDS: HYDROmorphone INJ 0.5 MG/0.5 ML SYR IV PRN ×3 (01:49→20:55)
[2018-07-24] MEDS ORDERED: HYDROmorphone INJ 0.5 MG/0.5 ML SYR IV ONE (02:09)
[2018-07-24] MEDS ORDERED: SOD PHOSPHATE/SOD BIPHOSPHATE ENEMA 132 ML BTL PR SCH (06:00)
[2018-07-24] MEDS ORDERED: cefOXitin 2,000 MG in DEXTROSE 5% 50 ML IV SCH (06:00)
[2018-07-24 07:24] LABS: Hematocrit (blood only) 32.1 % (37-47); Hemoglobin 9.6 g/dL (12.0-16.0); Mean Corpuscular Hgb Conc 29.9 g/dL (32-36); Platelet Count 202 K/uL (130-400); RDW Coefficient of Variation 22.9 % (11.5-14.5); RDW Standard Deviation 62.1 fL (36.4-46.3); Red Blood Count 4.17 M/uL (4.2-5.4); White Blood Count 5.19 K/uL (4.8-10.8)
[2018-07-24 07:53] LABS: BUN Creatinine Ratio 14.8 (10-20); Calcium 7.6 mg/dl (8.5-10.1); Creatinine Clr Calc Pharmacy 193.5 ml/min; Est GFR (Non-African American) 121.7
[2018-07-24] MEDS: INSULIN ASPART 100 UNITS/ML 3 ML PEN SC SCH ×4 (07:55→20:29)
[2018-07-24] MEDS: CIPROFLOXACIN 500 MG TAB PO SCH ×2 (07:55→20:51)
[2018-07-24] MEDS: metroNIDAZOLE 500 MG TAB PO SCH ×3 (07:55→20:50)
[2018-07-24] MEDS: levETIRAcetam 500 MG TAB PO SCH ×2 (07:55→20:50)
[2018-07-24] MEDS: FOLIC ACID 1 MG TAB PO SCH (07:56)
[2018-07-24] MEDS: CARVEDILOL 6.25 MG TAB PO SCH ×2 (07:56→20:49)
[2018-07-24] MEDS: THIAMINE HCL 100 MG TAB PO SCH (07:56)
[2018-07-24] MEDS: MULTIVITAMIN TAB PO SCH (07:56)
[2018-07-24] MEDS: FAMOTIDINE 20 MG TAB PO SCH ×2 (07:56→20:51)
[2018-07-24] MEDS: LISINOPRIL 10 MG TAB PO SCH (07:56)
[2018-07-24] MEDS: SUCRALFATE 1 GM TAB PO SCH ×4 (07:56→20:49)
--- NOTE | 2018-07-24 07:58 | Consultation Report ---
DATE OF CONSULTATION: 07/22/2018 HISTORY OF PRESENT ILLNESS: This is a 28-year-old who was admitted on medicine service for alcohol withdrawal. During the admission, patient reported having irregular periods. She had had IUD placed in February and never followed up with ORGANIC CHEMIST. The patient reported having irregular periods and this generated a ORGANIC CHEMIST consult. When I arrived to see the patient, the patient is stable, resting comfortably in bed. She has no shortness of breath, no chills, no fever. She reports having an IUD placed as stated above and has never seen ORGANIC CHEMIST for followup since placement. She denies any pain or discomfort. She had irregular bleeding prior to placement of the IUD. Her irregular periods is therefore nothing new. PAST MEDICAL HISTORY: 1. Chronic anemia. 2. Diabetes. 3. Abnormal LFTs. 4. History of pancreatitis. 5. Alcoholism. 6. Uterine fibroid. 7. Fatty liver. 8. Morbid obesity. 9. Abdominal pain. 10. Double vision. 11. Nausea and vomiting. 12. Weakness. PAST SURGICAL HISTORY: The patient has had gastrojejunostomy and cholecystectomy. FAMILY HISTORY: Positive for alcoholism. SOCIAL HISTORY: Denies tobacco or drug use. History of alcohol abuse. PHYSICAL EXAMINATION: GENERAL: Well-developed, obese, black female in no discomfort. HEART: S1, S2, regular rhythm and rate. LUNGS: Clear to auscultation bilaterally. ABDOMEN: Obese. PELVIC: Deferred. The patient is not on a ORGANIC CHEMIST bed. I am therefore unable to perform a ORGANIC CHEMIST exam. EXTREMITIES: No cyanosis, clubbing, edema. ASSESSMENT AND PLAN: A 28-year-old admitted for alcohol withdrawal. The patient is currently receiving treatment via [facility]. She did complain during admission of irregular periods. This generated a ORGANIC CHEMIST consult. The patient has had IUD placed since February and has never seen ORGANIC CHEMIST. I am unable to do adequate ORGANIC CHEMIST exam in bed. I therefore have discussed with the patient to return to clinic so we can check the IUD status. I have discussed with the patient that it is unusual to get irregular bleeding after placement of the Mirena IUD. She denies any pain. test is negative. At this point, the plan is for her to follow up with [facility]MIST clinic.
[2018-07-24] MEDS: ENOXAPARIN INJ 40 MG/0.4 ML SYR SQ SCH (08:06)
[2018-07-24] MEDS: GABAPENTIN 600 MG TAB PO SCH (11:38)
[2018-07-24] MEDS: ACETAMINOPHEN 325 MG TAB PO PRN (13:17)
[2018-07-24] MEDS: OXYCODONE HCL IR 5 MG TAB (IMMEDIATE RELEASE) PO PRN (16:08)
--- NOTE | 2018-07-24 18:42 | Hospitalist Progress Note ---
Date of Service July 24, 2018 Assessment & Plan (1) Alcohol withdrawal: Alcohol Use disorder Recurrent admissions Patient interested in Rehab placement Prefers to follow up with her Psychiatrist as outpatient Continue Gabapentin Protocol Continue thiamine, folic acid Colitis: CT ABD:Mild nonspecific colitis involving the a sending and transverse colon. No evidence for abscess collection or obstruction Received IV fluids Advance diet as tolerated Continue Cipro and Flagyl Day #3 Stool: Negative C.diff Dysmenorrhea: Recent IUD placement Pain control Appreciate OBGYN Input Needs follow up with OBGYN as outpatient Hypokalemia Likely secondary to diarrhea Replace potassium as needed monitor electrolytes Hypertension BP Stable Increased Lisinopril to 10mg daily Continue Coreg DM II: Hold PO meds Last A1C: 5.5 in Apr 2018 Continue ISS Mood Disorder: Continue Buspar DVT Px: Lovenox SQ Code Status: Full code Disposition: Patient is interested in Rehab placement director of clinical services consulted Subjective Patient is seen and examined at bedside Doing better today Abd pain is improving Dysmenorrhea is improving as well Denies chest pain, SOB, dizziness No new complaints Physical Exam Vital Signs (Past 24 Hours): Last Vital Signs Temp 36.8 C 07/24/18 15:42 Pulse 99 H 07/24/18 15:42 Resp 20 07/24/18 15:42 BP 141/83 H 07/24/18 15:42 Pulse Ox 99 07/24/18 15:42 Physical Exam: Physical Exam: Vitals signs as noted above General Appearance:Obese, no apparent distress Head: normocephalic, Atraumatic Eyes: normal inspection, EOMI Neck: supple, Trachea midline Respiratory/Chest: Normal breath sounds, CTA Cardiovascular: S1, S2, No murmur, +Tachycardia Abdomen/GI:Soft, generalized tender, Bowel sounds present Extremities/Musculoskelatal:normal inspection, no edema Neurologic/Psych:AAOX3, grossly no focal neurological deficits Skin: normal color, warm Results & Data Laboratory Results Short CBC 07/24/18 Range/Units 07:03 WBC 5.19 (4.8-10.8) K/uL Hgb 9.6 L (12.0-16.0) g/dL Hct 32.1 L (37-47) % Plt Count 202 (130-400) K/uL BMP 07/24/18 07:03 Sodium 136 Potassium 4.0 Chloride 104 Carbon Dioxide 25 BUN 9 Creatinine 0.61 Glucose 94 Calcium 7.6 L
[2018-07-25] MEDS: OXYCODONE HCL IR 5 MG TAB (IMMEDIATE RELEASE) PO PRN ×2 (00:12→04:36)
[2018-07-25] MEDS: HYDROmorphone INJ 0.5 MG/0.5 ML SYR IV PRN (03:25)
[2018-07-25 07:02] LABS: Hematocrit (blood only) 31.5 % (37-47); Hemoglobin 9.5 g/dL (12.0-16.0); Mean Corpuscular Hgb Conc 30.2 g/dL (32-36); Mean Corpuscular Volume 77.2 fL (80-100); Mean Platelet Volume 9.9 fL (7.4-10.4); Platelet Count 210 K/uL (130-400); RDW Coefficient of Variation 23.7 % (11.5-14.5); RDW Standard Deviation 63.5 fL (36.4-46.3); Red Blood Count 4.08 M/uL (4.2-5.4); White Blood Count 6.38 K/uL (4.8-10.8)
[2018-07-25] MEDS ORDERED: HYDROmorphone INJ 0.5 MG/0.5 ML SYR IV PRN (07:13)
[2018-07-25 07:34] LABS: BUN Creatinine Ratio 21.5 (10-20); Calcium 8.2 mg/dl (8.5-10.1); Creatinine Clr Calc Pharmacy 172.1 ml/min; Est GFR (Non-African American) 117.4; Potassium 4.1 mmol/L (3.5-5.1)
[2018-07-25] MEDS: ENOXAPARIN INJ 40 MG/0.4 ML SYR SQ SCH (08:07)
[2018-07-25] MEDS: FOLIC ACID 1 MG TAB PO SCH (08:08)
[2018-07-25] MEDS: LISINOPRIL 10 MG TAB PO SCH (08:08)
[2018-07-25] MEDS: CIPROFLOXACIN 500 MG TAB PO SCH (08:08)
[2018-07-25] MEDS: FAMOTIDINE 20 MG TAB PO SCH (08:08)
[2018-07-25] MEDS: levETIRAcetam 500 MG TAB PO SCH (08:08)
[2018-07-25] MEDS: THIAMINE HCL 100 MG TAB PO SCH (08:08)
[2018-07-25] MEDS: MULTIVITAMIN TAB PO SCH (08:09)
[2018-07-25] MEDS: SUCRALFATE 1 GM TAB PO SCH ×2 (08:09→12:13)
[2018-07-25] MEDS: metroNIDAZOLE 500 MG TAB PO SCH (08:09)
[2018-07-25] MEDS: CARVEDILOL 6.25 MG TAB PO SCH (08:23)
[2018-07-25] MEDS: INSULIN ASPART 100 UNITS/ML 3 ML PEN SC SCH ×2 (08:24→12:13)
[2018-07-25] MEDS ORDERED: GABAPENTIN 600 MG TAB PO SCH (12:00)
--- NOTE | 2018-07-25 12:16 | Hospitalist Progress Note ---
Date of Service July 25, 2018 Assessment & Plan (1) Alcohol withdrawal: Alcohol Use disorder Recurrent admissions Patient prefers to follow up with rehab facility as outpatient Prefers to follow up with her Psychiatrist as outpatient Continue Gabapentin Protocol Continue thiamine, folic acid Colitis: CT ABD:Mild nonspecific colitis involving the a sending and transverse colon. No evidence for abscess collection or obstruction Received IV fluids Advance diet as tolerated Continue Cipro and Flagyl Day #4 Stool: Negative C.diff Dysmenorrhea: Recent IUD placement Pain control Appreciate OBGYN Input Needs follow up with OBGYN as outpatient Hypokalemia Likely secondary to diarrhea Replace potassium as needed monitor electrolytes Hypertension BP Stable Increased Lisinopril to 10mg daily Resume metoprolol DM II: Hold PO meds Last A1C: 5.5 in Apr 2018 Continue ISS Mood Disorder: Continue Buspar DVT Px: Lovenox SQ Code Status: Full code Disposition: Patient prefers to follow up with alcohol Rehab as outpatient nutrition services associate consulted Subjective Patient is seen and examined at bedside States feeling well today Abd pain resolved No new complaints Prefers to be discharged home Denies chest pain, SOB, dizziness Physical Exam Vital Signs (Past 24 Hours): Last Vital Signs Temp 36.2 C L 07/25/18 11:40 Pulse 97 H 07/25/18 11:40 Resp 16 07/25/18 11:40 BP 126/80 07/25/18 11:40 Pulse Ox 96 07/25/18 11:40 Physical Exam: Physical Exam: Vitals signs as noted above General Appearance:Obese, no apparent distress Head: normocephalic, Atraumatic Eyes: normal inspection, EOMI Neck: supple, Trachea midline Respiratory/Chest: Normal breath sounds, CTA Cardiovascular: S1, S2, No murmur, +Tachycardia Abdomen/GI:Soft, generalized tender, Bowel sounds present Extremities/Musculoskelatal:normal inspection, no edema Neurologic/Psych:AAOX3, grossly no focal neurological deficits Skin: normal color, warm Results & Data Laboratory Results Short CBC 07/25/18 Range/Units 06:31 WBC 6.38 (4.8-10.8) K/uL Hgb 9.5 L (12.0-16.0) g/dL Hct 31.5 L (37-47) % Plt Count 210 (130-400) K/uL [facility] 07/25/18 06:31 Sodium 133 L Potassium 4.1 Chloride 102 Carbon Dioxide 24 BUN 15 D Creatinine 0.68 Glucose 97 Calcium 8.2 L
--- NOTE | 2018-07-25 12:27 | Discharge Summary ---
Date of Service July 25, 2018 Admission HPI Per Admitting Provider History obtained from patient and records. Medical history is significant for alcohol abuse, hypertension, DM 2, on oral meds, mood disorder, hx pancreatitis, fatty liver as per records, chronic anemia (baseline hemoglobin 10-11). Recent confinement May 2018 for alcohol withdrawal. Normal EGD at time of confinement. Patient discharged to alcohol rehab at [facility]. Patient completed another stay at alcohol rehab 2 weeks ago. Patient started drinking again 2 days upon returning home. 2 days history of generalized achy abdominal pain with nausea, bilious emesis, loose dark stools not grossly bloody. No chest pain, no S OB. Patient noted palpitations at home. Admission Exam Per Admitting Provider GENERAL: Obese, uncomfortable, no respiratory distress, tremulous SKIN: Pallor, warm HEENT: Pale palpebral conjunctivae, no ptosis, dry buccal mucosa NECK : Supple, short, no tenderness CHEST : Decreased breath sounds, no tenderness HEART : Tachycardic, no obvious murmurs ABDOMEN: Some distention, nonspecific tenderness on light palpation Rectal exam as per ER provider : Dark stool, heme positive EXTREMITIES : minimal LE swelling, no tenderness, no other conspicuous deformities noted NEUROLOGIC : Coherent, no facial asymmetry, tremulous Principal Diagnosis Discharge Information Discharge Diagnosis Alcohol Use disorder Colitis Dysmenorrhea Discharge Goals Decrease discomfort,Improve disease control, Improve function Discharge Activity Limitations Resume your previous activity Discharge Data Allergies Allergy/AdvReac Type Severity Reaction Status Date / Time pantoprazole Allergy Intermediate "ITCHY ALL Verified 07/21/18 23:06 OVER" ketorolac Allergy Mild pruritus Verified 07/21/18 23:06 ondansetron Allergy Unknown lip Verified 07/21/18 23:06 tingling morphine AdvReac Intermediate ITCHINESS Verified 07/21/18 23:06 Consultations 07/21/18 23:35 ED Decision to Admit Stat 07/22/18 04:46 Consult Case Management - Discharge Planning Routine 07/23/18 09:07 Consult Gynecology Routine Procedures Performed CT ABD: 1. Mild nonspecific colitis involving the a sending and transverse colon. 2. No evidence for abscess collection or obstruction Ordered Studies 07/22/18 00:52 CT abd pelvis IV con only Urgent Hospital Course (1) Alcohol withdrawal: Alcohol Use disorder Recurrent admissions Patient prefers to follow up with rehab facility as outpatient Prefers to follow up with her Psychiatrist as outpatient Continue Gabapentin Protocol Continue thiamine, folic acid Colitis: CT ABD:Mild nonspecific colitis involving the a sending and transverse colon. No evidence for abscess collection or obstruction Received IV fluids Advance diet as tolerated Continue Cipro and Flagyl Day #4 Stool: Negative C.diff Dysmenorrhea: Recent IUD placement Pain control Appreciate OBGYN Input Needs follow up with OBGYN as outpatient Hypokalemia Likely secondary to diarrhea Replace potassium as needed monitor electrolytes Hypertension BP Stable Increased Lisinopril to 10mg daily Resume metoprolol DM II: Hold PO meds Last A1C: 5.5 in Apr 2018 Continue ISS Mood Disorder: Continue Buspar DVT Px: Lovenox SQ Code Status: Full code Disposition: Patient prefers to follow up with alcohol Rehab as outpatient [employer] court services consulted Total Time Total Time Spent Total Time Spent (In Minutes): 38 minutes Total Time Includes: Examination of the Patient, Discharge Planning, Medication Reconciliation and Other Discharge Plan Discharge Items Patient Disposition: Home - Self-Care Reason For Visit: ALCOHOL WITHDRAWAL Discharge Diagnosis: Alcohol Use disorder Colitis Dysmenorrhea Condition: Good Discharge Goals: Decrease discomfort, Improve disease control and Improve function Activity: Resume your previous activity Exercise/Sports: Gradually increase as tolerated Non-emergency contact: Primary Care Provider and Executive Secretary Social Welfare Call non-emergency contact if: you have any medication questions, your symptoms worsen, your pain is not controlled, your pain is worsening, your pain is unusual for you, your pain is concerning for you and you have a fever Follow-up/Referrals: Logan Tsai [Primary Care Provider] - Diet: Heart Healthy Addtl Provider Instructions: Follow up with your PCP on 07/31/18 at 11:00 AM Follow up with your OBGYN in 1-2 weeks as advised Follow up with your Psychiatrist/Rehab as advised Complete the antibiotic course as prescribed Quit drinking alcohol as advised Seek immediate medical attention if your symptoms reoccur or worsen Prescriptions: New thiamine HCl (vitamin B1) [Vitamin B-1] 100 mg Tablet 100 mg PO QAM 30 Days Qty: 30 RF: 0 metronidazole 500 mg Tablet 500 mg PO TID 3 Days Qty: 9 RF: 0 ciprofloxacin HCl 500 mg Tablet 500 mg PO BID 3 Days Qty: 6 RF: 0 Continued polyethylene glycol 3350 [Miralax] 17 gram Powder In Packet 17 g PO DAILY PRN (Reason: Constipation) RF: 0 levetiracetam [Keppra] 500 mg tablet 500 mg PO BID RF: 0 sucralfate [Carafate] 1 gram tablet 1 g PO ACHS RF: 0 lisinopril [Zestril] 5 mg tablet 5 mg PO QAM RF: 0 metformin [Glucophage XR] 500 mg tablet extended release 24 hr 500 mg PO QAM RF: 0 buspirone 10 mg tablet 10 mg PO BID RF: 0 folic acid 1 mg Tablet 1 mg PO DAILY RF: 0 multivitamin Tablet 1 tab PO DAILY RF: 0 metoprolol succinate 25 mg Tablet Extended Release 24 Hr 12.5 mg PO DAILY RF: 0 Stand-Alone Forms: [facility], Work/School Release (Inpt) Discharge Orders: Discharge Order (Routine); Ordered 07/25/18 Ordered By: Paulino Harley Admission Data Admit Date/Time: 07/22/18 00:57 Attending Provider: Paulino Harley Admit Provider: Live Hartman Primary Care Provider: Logan Tsai Other Providers: Live Hartman ; Woody Jeffers Service: Telemetry Medical Other Interventions: Discharge Summary Assessment (RN) Last Done: 07/25/18 12:37 Pending Studies at Discharge: No DC Date/Time DO NOT enter until pt leaves facility: 07/25/18 13:20
== END 2018-07-25 13:20 | disposition home or self-care (01) | DRG 897 ==
LOC: ED 21:18 → 2W 07-22 00:57

== ENCOUNTER 2018-08-28 18:50 | Inpatient (IN) ==
[2018-08-28] MEDS ORDERED: PROMETHAZINE HCL 25 MG in SODIUM CHLORIDE 0.9% 50 ML IV STA ×2 (19:22→22:37)
[2018-08-28] MEDS ORDERED: MULTI-VITAMIN INFUSION 10 ML, THIAMINE HCL 100 MG, FOLIC ACID 1 MG in SODIUM CHLORIDE 0... IV SCH (19:30)
--- NOTE | 2018-08-28 19:35 | Emergency Department Note ---
History of Present Illness General Chief complaint: GI Assessment Stated complaint: VOMIT, C-DIFF Source: patient Mode of arrival: ambulatory Limitations: no limitations History of Present Illness Provider Complaint: + nausea, + vomiting, + diarrhea and + abdominal pain Description of Vomiting: + watery and + bilious Description of Diarrhea: + watery Associated Abdominal Pain: Yes Location of pain: + epigastric Severity: severe Current Pain Intensity: 8 Quality: + cramping Pain Consistency: + constant Relieved By: + none Exacerbated By: + none Associated symptoms: + malaise, + nausea/vomiting and + anxiety Treatments prior to arrival: + none HPI Narrative: This 28-year-old female patient presents emergency department today, ambulatory, complaining of diarrhea and vomiting. She states the symptoms began to worsen today. One week ago she, she was diagnosed with C. difficile. She states she has developed some epigastric abdominal pain. The patient has been taking vancomycin for the C. difficile, but is uncertain how long of a course. She did not take the antibiotics today due to the nausea and vomiting. She does report diarrhea and palpitations. She admits to struggling with alcohol overuse/abuse, and states she has been drinking vodka. She is uncertain how much she drinks, but states she did not quite finish a large bottle. Her last drink was 3 hours ago. She does not take any current medic ations for alcohol cessation. She has been drinking water, but has not been eating much. She denies any further drug use. The patient denies any chest pain or dyspnea. Home Medications Home Medications Medication Instructions Recorded Confirmed Type metformin [Glucophage XR] 500 mg PO QAM 06/02/18 08/28/18 History polyethylene glycol 3350 [Miralax] 17 g PO DAILY PRN 06/02/18 08/28/18 History sucralfate [Carafate] 1 g PO ACHS 06/02/18 08/28/18 History buspirone 10 mg PO BID 07/11/18 08/28/18 History multivitamin 1 tab PO DAILY 07/21/18 08/28/18 History escitalopram oxalate 20 mg PO QAM 30 Days #30 tab 08/20/18 08/28/18 Rx folic acid 1 mg PO QAM 30 Days #30 tab 08/20/18 08/28/18 Rx lisinopril [Zestril] 10 mg PO QAM 30 Days #30 tab 08/20/18 08/28/18 Rx metoprolol succinate 25 mg PO DAILY 30 Days #30 tab 08/20/18 08/28/18 Rx thiamine HCl (vitamin B1) [Vitamin 100 mg PO QAM 30 Days #30 tab 08/20/18 08/28/18 Rx B-1] vancomycin 125 mg PO Q6H 12 Days #48 cap 08/20/18 08/28/18 Rx dicyclomine 10 mg PO BID PRN 08/28/18 08/28/18 History lactobacillus combination no.4 0 mmu cells PO DAILY 08/28/18 08/28/18 History [Probiotic] loratadine [Claritin] 10 mg PO DAILY PRN 08/28/18 08/28/18 History omeprazole 40 mg PO DAILY PRN 08/28/18 08/28/18 History thiamine HCl (vitamin B1) 100 mg PO DAILY 08/28/18 08/28/18 History levetiracetam [Keppra] 500 mg PO BID 08/29/18 08/29/18 History Allergies Allergy/AdvReac Type Severity Reaction Status Date / Time pantoprazole Allergy Intermediate "ITCHY ALL Verified 08/28/18 19:52 OVER" ketorolac Allergy Mild pruritus Verified 08/28/18 19:52 ondansetron Allergy Unknown lip Verified 08/28/18 19:52 tingling morphine AdvReac Intermediate ITCHINESS Verified 08/28/18 19:52 Past Med/Surg History Medical History Chronic anemia (Chronic) Diabetes mellitus, type II (Chronic) Abnormal LFTs (liver function tests) (Chronic) Hx of pancreatitis (Chronic) Alcohol abuse (Chronic) Uterine fibroid (Chronic) Hepatic steatosis (Chronic) Morbid obesity (Chronic) Abdominal pain Double vision Nausea and vomiting Weakness Surgical History H/O esophagogastroduodenoscopy (Chronic) Most recent 05/09: - Non-bleeding esophageal ulcer, likely esophagitis or prior MWT. - Normal stomach. - Normal duodenal bulb and second portion of the duodenum. S/P cholecystectomy (Chronic) Social History Preferred Language: Mongolian Beliefs That Will Affect Care: Yazidi marital status: Single Current Living Situation: Alone current occupation: [employer] employee Feels Safe at Home: Yes Smoking Status: Never smoker Hx Alcohol Use: Yes Hx Substance Use: No Review of Systems A total of 10 systems reviewed and were otherwise negative Physical Exam Vital Signs: Vital Signs - 24 hr 08/28/18 18:51 08/28/18 19:22 08/28/18 20:41 Temperature 37.0 C Temperature Source Oral Sepsis Recent Feve r Within 48 Hours No Sepsis Action Take n by Nursing No Action Required Pulse Rate 127 H 100 H Pulse Rate [Apical ] 100 H Pulse Rhythm Regular Regular Pulse Rhythm [Apic al] Regular Pulse Strength Normal Pulse Strength [Ap ical] Normal Respiratory Rate 18 19 18 Respiratory Effort / Characteristics Non-Labored Sponta neous Non-Labored Sponta neous Respiratory Depth Normal Normal Respiratory Patter n Regular Blood Pressure 147/104 H Blood Pressure [Ri ght Arm] 150/89 H Blood Pressure Iwona n 118 Blood Pressure Iwona n [Right Arm] 109 Blood Pressure Pos ition Sitting Blood Pressure Pos ition [Right Arm] Lying Pulse Oximetry 98 100 100 Oxygen Delivery Me thod Room Air Room Air Room Air 08/28/18 21:49 08/28/18 23:10 08/29/18 00:38 Temperature Temperature Source Sepsis Recent Feve r Within 48 Hours Sepsis Action Take n by Nursing Pulse Rate Pulse Rate [Apical ] 103 H 104 H 74 Pulse Rhythm Pulse Rhythm [Apic al] Regular Regular Regular Pulse Strength Pulse Strength [Ap ical] Normal Normal Normal Respiratory Rate 20 19 18 Respiratory Effort / Characteristics Non-Labored Sponta neous Non-Labored Sponta neous Non-Labored Sponta neous Respiratory Depth Normal Normal Normal Respiratory Patter n Regular Regular Regular Blood Pressure Blood Pressure [Ri ght Arm] 106/79 145/112 H 110/73 Blood Pressure Iwona n Blood Pressure Iwona n [Right Arm] 88 123 85 Blood Pressure Pos ition Blood Pressure Pos ition [Right Arm] Lying Lying Lying Pulse Oximetry 99 98 95 Oxygen Delivery Me thod Room Air Room Air Room Air Physical Exam: VITALS: Vitals are noted on the nurse's note and reviewed by myself. Vital signs stable. GENERAL: This is a 28-year-old obese black female, in no acute distress, non diaphoretic, well-developed well-nourished. SKIN: The skin was without rashes, erythema, edema, or bruising. There is no tenting of the skin. Capillary reflex less than 2 seconds. HEAD: Normocephalic atraumatic. EARS: External auditory canals clear, tympanic membranes pearly reynolds without erythema or effusion bilaterally. EYES: Pupils equal round and reactive to light and accommodation. Conjunctivae without injection, sclerae without icterus. Extraocular movements intact. NOSE: Patent, turbinates without inflammation or discharge. No sinus tenderness. MOUTH: Mucous membranes moist. Tonsils are not enlarged. Pharynx without erythema or exudate. Uvula midline. Airway patent. Tongue does not deviate. NECK: Supple without nuchal rigidity. No lymphadenopathy. Cervical spine is nontender. No JVD. HEART: Regular rate and rhythm without murmurs gallops or rubs. LUNGS: Clear to auscultation bilaterally without wheezes, rales or rhonchi. No dullness to percussion. No retractions or accessory muscle use. ABDOMEN: Positive bowel sounds x 4. Normal tympanic percussion. Significant epigastric tenderness to palpation. The abdomen is otherwise soft, nontender, without masses or organomegaly. Jefferson sign negative. No guarding or rebound tenderness. MUSCULOSKELETAL: No muscle atrophy, erythema, or edema noted. Full range of motion without joint tenderness in all extremities. No tenderness to palpation. Normal gait. Strength 5/5 throughout. NEURO: Patient was alert and oriented to person place and time. Normal sensation to light and sharp touch. Deep tendon reflexes 2+ throughout. No focal neurological deficits. Course The patient was seen and evaluated as above. IV access obtained, labs drawn. The patient was medicated with IV Phenergan and a banana bag. Ultrasound performed and reviewed by myself and radiologist as above. Labs reviewed by myself. I discussed the findings with the patient at bedside. She was given a second liter of IV fluids. I discussed the case with my attending. CT scan of the abdomen/pelvis with IV contrast performed reviewed by myself and radiologist as above. The patient was reassessed. She continues to complain of severe nausea vomiting. She is given a second dose of Phenergan. I discussed options with the patient including admission versus discharge. The patient feels that if she is discharged she will return back for her symptoms. I discussed the case with the nurse case management, Mony. I consulted with Dr. Olivera. He did agree to see and evaluate the patient for admission. Please see his dictation regarding further management and care. Administered Medications Ioversol (Optiray 320 100ml) 96 ml IV ONCE PRN PRN Reason: Interaction Checking Stop: 09/01/18 22:16 Last Admin: 08/28/18 22:17 Dose: 96 ml Documented by: [id number] Discontinued Medications Multivitamins 10 ml/ Thiamine HCl 100 mg/ Folic Acid 1 mg/Sodium Chloride 1,011.2 mls @ 1,011.2 mls/hr IV .Q1H JOSE Stop: 08/28/18 20:29 Last Infusion: 08/28/18 21:04 Dose: 0 mls/hr Documented by: [id number] Admin: 08/28/18 19:50 Dose: 1,011.2 mls/hr Documented by: [id number] Promethazine HCl 25 mg/ Sodium (Chloride) 51 mls @ 204 mls/hr IV NOW STA Stop: 08/28/18 19:36 Last Infusion: 08/28/18 20:19 Dose: 0 mls/hr Documented by: [id number] Admin: 08/28/18 19:50 Dose: 204 mls/hr Documented by: [id number] Sodium Chloride (Nss 1000ml) 1,000 mls @ 999 mls/hr IV .Q1H1M ONE Stop: 08/28/18 22:30 Last Infusion: 08/28/18 23:01 Dose: 0 mls/hr Documented by: [id number] Admin: 08/28/18 21:44 Dose: 999 mls/hr Documented by: [id number] Promethazine HCl 25 mg/ Sodium (Chloride) 51 mls @ 204 mls/hr IV NOW STA Stop: 08/28/18 22:51 Last Infusion: 08/28/18 23:17 Dose: 0 mls/hr Documented by: [id number] Admin: 08/28/18 23:00 Dose: 204 mls/hr Documented by: [id number] Promethazine HCl (Phenergan) Confirm Administered Dose 25 mg IV .STK-MED ONE Stop: 08/28/18 22:56 Last Admin: 08/28/18 23:00 Dose: Not Given Documented by: [id number] Medical Decision Making Differential Diagnosis + gastroenteritis, + food borne illness, + infections, + appendicitis, + diverticulitis, + inflammatory bowel disease, + GI bleed, + biliary pathology, + nausea, + vomiting, + diarrhea and + abdominal pain appendicitis, diverticulitis, obstruction, inflammatory bowel disease, renal colic, PUD, biliary pathology, pancreatitis, mesenteric ischemia, aortic pathology, infections, genitourinary, UTI, perforated viscus, as well as others were entertained. Medical Records Attestation: I reviewed the patient's medical records. Recent admission/discharge notes reviewed. Home Medications Current Medication List: was personally reviewed by me Laboratory Data Attestation: I reviewed the patient's lab results. No leukocytosis, anemia, thrombocytopenia. Renal, hepatic function, and electrolytes without significant abnormality. Coags normal. Troponin negative. TSH 1.65. Lipase 62. Lactic acid 3.8. Vitamin B12 low at 429, folic acid normal. Alcohol level 176. Result diagrams: 08/28/18 19:30 08/28/18 19:30 Lab Results 08/28/18 08/28/18 08/28/18 Range/Units 19:30 19:30 19:30 WBC 5.61 (4.8-10.8) K/uL RBC 4.89 (4.2-5.4) M/uL Hgb 11.4 L (12.0-16.0) g/dL Hct 35.5 L (37-47) % MCV 72.6 L (80-100) fL MCH 23.3 L (25-34) pg MCHC 32.1 (32-36) g/dL RDW Std Deviation 61.9 H (36.4-46.3) fL RDW Coeff of Mario 23.7 H (11.5-14.5) % Plt Count 385 (130-400) K/uL MPV 9.5 (7.4-10.4) fL Immature Gran % (Auto) 0.0 % Neut % (Auto) 37.9 % Lymph % (Auto) 49.6 % Pleasants % (Auto) 10.7 % Eos % (Auto) 0.0 % Baso % (Auto) 1.8 % Immature Gran # (Auto) 0.00 (0.00-0.02) K/uL Neut # (Auto) 2.13 (1.4-6.5) K/uL Lymph # (Auto) 2.78 (1.2-3.4) K/uL [place] # (Auto) 0.60 H (0.11-0.59) K/uL Eos # (Auto) 0.00 (0-0.5) K/uL Baso # (Auto) 0.10 (0-0.2) K/uL Hypochromasia Present Anisocytosis Present PT 11.3 (9.0-12.0) Seconds INR 1.1 (0.9-1.1) APTT 24.4 (21.0-31.0) Seconds PTT Ratio 0.9 Sodium 136 (136-145) mmol/L Potassium 3.4 L (3.5-5.1) mmol/L Chloride 100 (98-107) mmol/L Carbon Dioxide 25 (21-32) mmol/L Anion Gap 11.0 (3-11) BUN 11 (7-18) mg/dl Creatinine 0.82 (0.6-1.2) mg/dl Est Cr Clr Drug Dosing 141.6 ml/min Est GFR ( Amer) 111.3 Est GFR (Non-Af Amer) 96.0 BUN/Creatinine Ratio 13.4 (10-20) Glucose 116 H (70-99) mg/dl Lactate (0.4-2.0) mmol/L Calcium 8.4 L (8.5-10.1) mg/dl Magnesium 1.9 (1.8-2.4) mg/dl Total Bilirubin 0.9 (0.2-1) mg/dl AST 93 H (15-37) U/L ALT 70 (12-78) U/L Alkaline Phosphatase 92 (45-117) U/L Troponin I < 0.015 (0-0.045) ng/ml Total Protein 9.1 H (6.4-8.2) gm/dl Albumin 3.9 (3.4-5.0) gm/dl Globulin 5.2 H (2.5-4.0) gm/dl Albumin/Globulin Ratio 0.8 L (0.9-2) Lipase 62 L (73-393) U/L Vitamin B12 (211-911) pg/ml Folate (>5.38) ng/ml TSH 1.650 (0.300-4.500) uIu/ml Ethyl Alcohol mg/dL (0-3) mg/dl 08/28/18 08/28/18 08/28/18 Range/Units 20:05 20:05 20:05 WBC (4.8-10.8) K/uL RBC (4.2-5.4) M/uL Hgb (12.0-16.0) g/dL Hct (37-47) % MCV (80-100) fL MCH (25-34) pg MCHC (32-36) g/dL RDW Std Deviation (36.4-46.3) fL RDW Coeff of Mario (11.5-14.5) % Plt Count (130-400) K/uL MPV (7.4-10.4) fL Immature Gran % (Auto) % Neut % (Auto) % Lymph % (Auto) % Pleasants % (Auto) % Eos % (Auto) % Baso % (Auto) % Immature Gran # (Auto) (0.00-0.02) K/uL Neut # (Auto) (1.4-6.5) K/uL Lymph # (Auto) (1.2-3.4) K/uL Pleasants # (Auto) (0.11-0.59) K/uL Eos # (Auto) (0-0.5) K/uL Baso # (Auto) (0-0.2) K/uL Hypochromasia Anisocytosis PT (9.0-12.0) Seconds INR (0.9-1.1) APTT (21.0-31.0) Seconds PTT Ratio Sodium (136-145) mmol/L Potassium (3.5-5.1) mmol/L Chloride (98-107) mmol/L Carbon Dioxide (21-32) mmol/L Anion Gap (3-11) BUN (7-18) mg/dl Creatinine (0.6-1.2) mg/dl Est Cr Clr Drug Dosing ml/min Est GFR ( Amer) Est GFR (Non-Af Amer) BUN/Creatinine Ratio (10-20) Glucose (70-99) mg/dl Lactate 3.8 H* (0.4-2.0) mmol/L Calcium (8.5-10.1) mg/dl Magnesium (1.8-2.4) mg/dl Total Bilirubin (0.2-1) mg/dl AST (15-37) U/L ALT (12-78) U/L Alkaline Phosphatase (45-117) U/L Troponin I (0-0.045) ng/ml Total Protein (6.4-8.2) gm/dl Albumin (3.4-5.0) gm/dl Globulin (2.5-4.0) gm/dl Albumin/Globulin Ratio (0.9-2) Lipase (73-393) U/L Vitamin B12 429 (211-911) pg/ml Folate 17.43 (>5.38) ng/ml TSH (0.300-4.500) uIu/ml Ethyl Alcohol mg/dL 176.1 H (0-3) mg/dl Imaging Data Attestation: I personally reviewed and interpreted this imaging study as follows: Radiologist's Impression: ULTRASOUND RIGHT UPPER QUADRANT ABDOMEN CLINICAL HISTORY: Epigastric abdominal pain. COMPARISON STUDY: Abdominal CT dated 07/22/2018. TECHNIQUE: Real-time, grayscale, and color flow sonography of the right upper quadrant of the abdomen was performed. Images are reviewed in the transverse and longitudinal planes. The examination is degraded by large body habitus. FINDINGS: Liver: The liver is enlarged and demonstrates heterogeneously increased ech otexture consistent with hepatic steatosis. There is no intrahepatic biliary ductal dilatation. The main portal vein is patent. Gallbladder: The gallbladder is surgically absent. The common bile duct measures up to 0.4 cm in diameter. Pancreas: Visualized portions of the pancreatic head and body are normal in appearance. The splenic vein is patent. Right kidney: Survey images of the right kidney demonstrate normal size and echotexture. There is no hydronephrosis. Ascites: None. IMPRESSION: 1. No acute sonographic abnormality is identified. 2. Status post cholecystectomy. 3. Hepatomegaly and hepatic steatosis. Electronically signed by: Mathew Calero M.D. 08/28/2018 8:42 PM SINGLE VIEW CHEST CLINICAL HISTORY: Epigastric abdominal pain. FINDINGS: An AP, portable, upright chest radiograph is compared to study dated 04/09/2018. The examination is degraded by portable technique, large body habitus, and patient rotation. The cardiomediastinal silhouette is unremarkable. There is mild elevation of the right hemidiaphragm. The lungs and pleural spaces are clear. No pneumothorax is seen. The bony thorax is grossly intact. IMPRESSION: No active disease in the chest. Electronically signed by: Mathew Calero M.D. 08/28/2018 7:[address] SCAN OF THE ABDOMEN AND PELVIS WITH IV CONTRAST CLINICAL HISTORY: Epigastric abdominal pain. COMPARISON STUDY: Abdominal ultrasound dated 08/28/2018. Abdominal CT dated 07/22/2018. TECHNIQUE: Following the IV administration of 96 cc of Optiray 320, CT scan of the abdomen and pelvis is performed from the lung bases to the proximal femora. Images are reviewed in the axial, sagittal, and coronal planes. IV contrast was administered without complication. A dose lowering technique was utilized adhering to the principles of ALARA. The examination is degraded by large body habitus, and by streak artifact from the body wall abutting the CT gantry. CT DOSE: 1813.09 mGy.cm FINDINGS: Lung bases: The heart is normal in size and without pericardial effusion. The lung bases are clear. There is a small hiatal hernia. Liver: The contrast-enhanced liver is enlarged, measuring 22 cm in length. The liver demonstrates diffusely diminished attenuation consistent with hepatic steatosis. There is no intrahepatic biliary ductal dilatation. The hepatic veins and portal veins are patent. Gallbladder: Surgically absent noting clips in the gallbladder fossa. Spleen: Normal in size and attenuation. Pancreas: Unremarkable. Adrenal glands: Unremarkable. Kidneys: The contrast enhanced kidneys are normal in size and without hydronephr osis. The kidneys enhance symmetrically. Abdominal vasculature: The abdominal aorta is normal in course and caliber. Bowel: The small bowel and colon are normal in course and caliber. The appendix is well-visualized and normal. Peritoneum: There is no intraperitoneal free air or abdominal ascites. Lymphadenopathy: None. Pelvic viscera: The bladder is normal as visualized. An intrauterine device is noted in the pelvis. There are small ovarian follicles. Trace free fluid is noted in the cul-de-sac. Skeletal structures: No lytic or blastic lesions are seen. IMPRESSION: 1. There are no acute infectious or inflammatory findings in the abdomen or pelvis. 2. Hepatomegaly and hepatic steatosis. 3. Trace free fluid in cul-de-sac is nonspecific and likely within physiologic limits. Electronically signed by: Mathew Calero M.D. 08/28/2018 10:24 PM ECG Data Attestation: I personally reviewed and interpreted this ECG as follows: Indication: palpitations and tachycardia Rate (beats per minute): 98 Rhythm: normal sinus Findings: no acute ischemic change and no ectopy Comparison ECG Date: from (08/16/18) Change: no significant change Blood Pressure Blood Pressure Findings: Normal blood pressure MDM Narrative Patient presents emergency department complaining of intractable nausea, vomiting, and abdominal pain. The patient is currently being treated for C. difficile with vancomycin. Her symptoms significantly worsened earlier today. She does admit to drinking alcohol, but has been trying to quit. Her alcohol level is 176 while here in the emergency department. Her last drink was approximately 3 hours prior to arrival. The patient's symptoms initially were concerning for acute pancreatitis. Workup here is inconsistent with this di agnosis. Negative lipase, no elevated white blood cell count, and imaging does not show any acute abnormalities. I am unclear to the etiology of the patient's symptoms, but suspect the patient's alcohol use as well as C. difficile is contributing. Her nausea and vomiting was difficult to control while here in the emergency department and she required multiple rounds of antiemetics. Because of this, she will be admitted to the hospitalist service for intractable nausea and vomiting. Please see hospitalist dictation regarding ongoing management care of this patient. The chart was completed utilizing [employer] Speech voice recognition software. Grammatical errors, random word insertions, pronoun errors, and incomplete sentences are an occasional consequence of this system due to software limitations, ambient noise, and hardware issues. Any formal questions or concerns about the content, text, or information contained within the body of this dictation should be directly addressed to the provider for clarification. Impression & Plan Nausea & vomiting Discharge Plan Visit Data Chief Complaint: GI Assessment Stated Complaint: VOMIT, C-DIFF ED Provider: Vladimir Ham ED Midlevel Provider: Mony Mckay Discharge Problem: Nausea & vomiting Patient Disposition: Being Evaluated by Hospitalist Condition: Good Forms Stand Alone Forms: My [place] PUD Prescriptions Prescriptions: No Action polyethylene glycol 3350 [Miralax] 17 gram Powder In Packet 17 g PO DAILY PRN (Reason: Constipation) RF: 0 sucralfate [Carafate] 1 gram tablet 1 g PO ACHS RF: 0 metformin [Glucophage XR] 500 mg tablet extended release 24 hr 500 mg PO QAM RF: 0 buspirone 10 mg tablet 10 mg PO BID RF: 0 thiamine HCl (vitamin B1) [Vitamin B-1] 100 mg Tablet 100 mg PO QAM 30 Days Qty: 30 RF: 0 lisinopril [Zestril] 10 mg Tablet 10 mg PO QAM 30 Days Qty: 30 RF: 0 folic acid 1 mg Tablet 1 mg PO QAM 30 Days Qty: 30 RF: 0 metoprolol succinate 25 mg Tablet Extended Release 24 Hr 25 mg PO DAILY 30 Days Qty: 30 RF: 0 escitalopram oxalate 20 mg Tablet 20 mg PO QAM 30 Days Qty: 30 RF: 0 vancomycin 125 mg capsule 125 mg PO Q6H 12 Days Qty: 48 RF: 0 multivitamin Tablet 1 tab PO DAILY RF: 0 thiamine HCl (vitamin B1) 100 mg Tablet 100 mg PO DAILY RF: 0 omeprazole 40 mg Capsule,Delayed Release(Dr/Ec) 40 mg PO DAILY PRN (Reason: Acid Reflux) RF: 0 dicyclomine 10 mg Capsule 10 mg PO BID PRN (Reason: ABD CRAMPING) RF: 0 loratadine [Claritin] 10 mg Tablet 10 mg PO DAILY PRN (Reason: ALLERGIES) RF: 0 Probiotic 3 billion cell Capsule PO DAILY RF: 0 levetiracetam [Keppra] 500 mg Tablet 500 mg PO BID RF: 0 Referrals Referrals: Logan Tsai [Primary Care Provider] -
--- NOTE | 2018-08-28 19:42 | XRay Report ---
SINGLE VIEW CHEST CLINICAL HISTORY: Epigastric abdominal pain. FINDINGS: An AP, portable, upright chest radiograph is compared to study dated 04/09/2018. The examin ation is degraded by portable technique, large body habitus, and patient rotation. The cardiomediast inal silhouette is unremarkable. There is mild elevation of the right hemidiaphragm. The lungs and pl eural spaces are clear. No pneumothorax is seen. The bony thorax is grossly intact. IMPRESSION: No active disease in the chest. Electronically signed by: Mathew Calero M.D. 08/28/2018 7:41 PM
[2018-08-28 19:49] LABS: Basophils % (auto) 1.8 %; Hematocrit (blood only) 35.5 % (37-47); Hemoglobin 11.4 g/dL (12.0-16.0); Lymphocytes # (auto) 2.78 K/uL (1.2-3.4); Lymphocytes % (auto) 49.6 %; Mean Corpuscular Hgb Conc 32.1 g/dL (32-36); Mean Corpuscular Volume 72.6 fL (80-100); Mean Platelet Volume 9.5 fL (7.4-10.4); Monocytes % (auto) 10.7 %; Neutrophils # (auto) 2.13 K/uL (1.4-6.5); Neutrophils % (auto) 37.9 %; Platelet Count 385 K/uL (130-400); RDW Coefficient of Variation 23.7 % (11.5-14.5); RDW Standard Deviation 61.9 fL (36.4-46.3); Red Blood Count 4.89 M/uL (4.2-5.4); White Blood Count 5.61 K/uL (4.8-10.8)
[2018-08-28 20:00] LABS: INR 1.1 (0.9-1.1); Partial Thromboplastin Ratio 0.9; Partial Thromboplastin Time 24.4 Seconds (21.0-31.0); Prothrombin Time 11.3 Seconds (9.0-12.0)
[2018-08-28 20:07] LABS: Albumin Level 3.9 gm/dl (3.4-5.0); BUN Creatinine Ratio 13.4 (10-20); Blood Urea Nitrogen 11 mg/dl (7-18); Calcium 8.4 mg/dl (8.5-10.1); Carbon Dioxide 25 mmol/L (21-32); Chloride 100 mmol/L (98-107); Creatinine Clr Calc Pharmacy 141.6 ml/min; Est GFR (African American) 111.3; Glucose 116 mg/dl (70-99); Magnesium 1.9 mg/dl (1.8-2.4); Potassium 3.4 mmol/L (3.5-5.1); Sodium 136 mmol/L (136-145)
[2018-08-28 20:11] LABS: Anisocytosis Present; Hypochromasia Present
[2018-08-28 20:18] LABS: Alanine Aminotransferase 70 U/L (12-78); Albumin Globulin Ratio 0.8 (0.9-2); Alkaline Phosphatase 92 U/L (45-117); Aspartate Aminotransferase 93 U/L (15-37); Bilirubin,Total 0.9 mg/dl (0.2-1); Globulin 5.2 gm/dl (2.5-4.0); Total Protein 9.1 gm/dl (6.4-8.2); Troponin I < 0.015 ng/ml (0-0.045)
--- NOTE | 2018-08-28 20:44 | Ultrasound Report ---
ULTRASOUND RIGHT UPPER QUADRANT ABDOMEN CLINICAL HISTORY: Epigastric abdominal pain. COMPARISON STUDY: Abdominal CT dated 07/22/2018. TECHNIQUE: Real-time, grayscale, and color flow sonography of the right upper quadrant of the abdomen was performed. Images are reviewed in the transverse and longitudinal planes. The examination is deg raded by large body habitus. FINDINGS: Liver: The liver is enlarged and demonstrates heterogeneously increased echotexture consistent with h epatic steatosis. There is no intrahepatic biliary ductal dilatation. The main portal vein is patent. Gallbladder: The gallbladder is surgically absent. The common bile duct measures up to 0.4 cm in diam eter. Pancreas: Visualized portions of the pancreatic head and body are normal in appearance. The splenic v ein is patent. Right kidney: Survey images of the right kidney demonstrate normal size and echotexture. There is no hydronephrosis. Ascites: None. IMPRESSION: 1. No acute sonographic abnormality is identified. 2. Status post cholecystectomy. 3. Hepatomegaly and hepatic steatosis. Electronically signed by: Mathew Calero M.D. 08/28/2018 8:42 PM
[2018-08-28 20:52] LABS: Folate (Folic Acid) 17.43 ng/ml (>5.38)
[2018-08-28] MEDS ORDERED: SODIUM CHLORIDE 0.9% 1000ML 1,000 ML IV ONE (21:30)
[2018-08-28] MEDS ORDERED: IOVERSOL 100ml IV PRN (22:17)
--- NOTE | 2018-08-28 22:27 | CT Scan Report ---
CT SCAN OF THE ABDOMEN AND PELVIS WITH IV CONTRAST CLINICAL HISTORY: Epigastric abdominal pain. COMPARISON STUDY: Abdominal ultrasound dated 08/28/2018. Abdominal CT dated 07/22/2018. TECHNIQUE: Following the IV administration of 96 cc of Optiray 320, CT scan of the abdomen and pelvi s is performed from the lung bases to the proximal femora. Images are reviewed in the axial, sagittal , and coronal planes. IV contrast was administered without complication. A dose lowering technique wa s utilized adhering to the principles of ALARA. The examination is degraded by large body habitus, an d by streak artifact from the body wall abutting the CT gantry. CT DOSE: 1813.09 mGy.cm FINDINGS: Lung bases: The heart is normal in size and without pericardial effusion. The lung bases are clear. T here is a small hiatal hernia. Liver: The contrast-enhanced liver is enlarged, measuring 22 cm in length. The liver demonstrates dif fusely diminished attenuation consistent with hepatic steatosis. There is no intrahepatic biliary robin vinh dilatation. The hepatic veins and portal veins are patent. Gallbladder: Surgically absent noting clips in the gallbladder fossa. Spleen: Normal in size and attenuation. Pancreas: Unremarkable. Adrenal glands: Unremarkable. Kidneys: The contrast enhanced kidneys are normal in size and without hydronephrosis. The kidneys enh ance symmetrically. Abdominal vasculature: The abdominal aorta is normal in course and caliber. Bowel: The small bowel and colon are normal in course and caliber. The appendix is well-visualized a nd normal. Peritoneum: There is no intraperitoneal free air or abdominal ascites. Lymphadenopathy: None. Pelvic viscera: The bladder is normal as visualized. An intrauterine device is noted in the pelvis. T here are small ovarian follicles. Trace free fluid is noted in the cul-de-sac. Skeletal structures: No lytic or blastic lesions are seen. IMPRESSION: 1. There are no acute infectious or inflammatory findings in the abdomen or pelvis. 2. Hepatomegaly and hepatic steatosis. 3. Trace free fluid in cul-de-sac is nonspecific and likely within physiologic limits. Electronically signed by: Mathew Calero M.D. 08/28/2018 10:24 PM
[2018-08-28] MEDS ORDERED: PROMETHAZINE 25 MG/51 ML NSS IV ONE (22:55)
--- NOTE | 2018-08-29 02:11 | History and Physical Report ---
DATE OF ADMISSION: 08/28/2018 CHIEF COMPLAINT: Abdominal pain, nausea and vomiting. HISTORY OF PRESENT ILLNESS: This is a 28-year-old female with past medical history significant for alcoholism, recurrent admission for alcoholism, recurrent pancreatitis, morbid obesity, type 2 diabetes, GERD, uterine leiomyoma, generalized anxiety disorder, mood disorder, who was recently in the hospital and discharged on 08/20/2018. At that time, she was admitted for alcohol withdrawal, also found to have diarrhea. Stool was PCR positive for c diff and negative for toxin but because of severe diarrhea she was started on p.o. vancomycin and diarrhea improved.. She was also seen by psychiatry and planned for intensive outpatient therapy for alcohol abuse and was discharged and the patient says after going home the next day she started drinking vodka about 1 bottle daily. She lives alone. Her boyfriend and sister check on her. She was in the rehab in the past but this time again she is interested to go to rehab. Since last night, she was having moderate to severe abdominal pain radiating to back with nausea and vomiting several episodes, which prompted her to come to the ER today. Last drink was few hours before coming to the ER. Currently, resting comfortably, still has significant abdominal pain. Denies any chest pain, no shortness of breath, no cough, no fever, no chills, no headache, has some sore throat from coughing and she is having difficulty swallowing because of cough and from nausea and vomiting. Since yesterday she is having again some loose stools, no blood in the stools. Normal bladder movements. No hematuria, no rash. ALLERGIES: MORPHINE, ZOFRAN, PROTONIX. PAST MEDICAL HISTORY: As mentioned above. PAST SURGICAL HISTORY: EGD with endoscopic ultrasound, ERCP, laparoscopic cholecystectomy, IUD placement. MEDICATIONS: thiamine 100 mg p.o. daily, lisinopril 10 mg p.o. daily, folic acid 1 mg p.o. daily, metoprolol succinate 25 mg p.o. daily, Lexapro 20 mg p.o. daily, vancomycin 125 mg p.o. q. 6 hours, MiraLax 17 g p.o. daily p.r.n., Keppra 500 mg p.o. b.i.d., sucralfate 1 g p.o. a.c. and at bedtime, metformin 500 mg p.o. a.m., multivitamin 1 tablet daily. FAMILY HISTORY: Significant for mother has arthritis and fibroids. Sister has fibroids. Father has diabetes and glaucoma, renal disease. SOCIAL HISTORY: Lives alone. No smoking. Heavy alcohol abuse. No drug use. REVIEW OF SYMPTOMS: As per HPI and rest of review of symptoms negative. PHYSICAL EXAMINATION: GENERAL: The patient is morbidly obese, not in acute distress. VITAL SIGNS: Temperature 37, pulse 104, respiratory rate 19, blood pressure 145/112, oxygen 98% room air. HEENT: No pallor, no icterus. Pupils equal, round, and reactive to light. NECK: No JVD, no neck masses, no carotid bruits. CARDIOVASCULAR: S1, S2 heard, regular rate and rhythm. Tachycardia. No murmurs. RESPIRATORY SYSTEM: Normal AP diameter. No accessory muscle use. No wheezing. No crackles. ABDOMEN: Soft, bowel sounds sluggish. Epigastric tenderness present. Some mild guarding, no rigidity. No distention. CENTRAL NERVOUS SYSTEM: Cranial nerves II-XII grossly nonfocal. EXTREMITIES: No edema, no erythema. LABS: WBC 5.6, hemoglobin 11.4, hematocrit 35.5, platelets 385. PT 11.3, INR 1.1, APTT 24.4. Sodium 136, potassium 3.4, chloride 110, bicarbonate 25, BUN 11, creatinine 0.8, serum glucose 116, lactate 3.8, calcium 8.4, magnesium 1.9, total bilirubin 0.9, AST 23, ALT 70, alkaline phosphatase 92. Troponin I less than 0.015. Lipase 62. Vitamin B12 429, folate 17.4, TSH 1.6, ethyl alcohol 176. CT of the abdomen and pelvis, no acute findings. Abdominal ultrasound, no acute findings. Chest x ray, no active disease in the chest. ASSESSMENT AND PLAN: This is a 28-year-old female with history of multiple admissions for recurrent alcoholism and recurrent pancreatitis, recently was in the hospital for alcohol withdrawal and Clostridium difficile diarrhea, comes back due alcoholism, nausea, vomiting and abdominal pain. 1. abdominal pain, nausea, vomiting. Lipase is normal. CT abdomen and pelvis and abdominal ultrasound is unremarkable. Her symptoms are mostly from alcohol-induced gastritis. We will continue home Carafate. The patient is placed on IV Pepcid b.i.d. Clear liquid diet, gentle fluids. Monitor in the hospital. If symptoms does not improve, gastrointestinal consult. 2. Alcoholism multiple admission of alcohol withdrawals, still drinking. Alcohol is 176. We will place on gabapentin alcohol withdrawal protocol and ativan prn. We will continue home thiamine and folic acid, IV Ativan p.r.n. The patient would like to go to rehabilitation. Social service consulted for rehab placement. 3. Generalized anxiety disorder and mood disorder. Continue with Lexapro and BuSpar. 4. Hypertension. Continue Toprol-XL and lisinopril. 5. Tachycardia, on Toprol-XL. 6. Clostridium difficile continue home p.o. vancomycin.Can be stopped in couple of days. 7. Diabetes hold metformin, placed on insulin sliding scale. 8. Chronic anemia. We will monitor. 9. Morbid obesity, needs counseling. 10. Hypokalemia, will replace. We will follow the labs. 11. Deep vein thrombosis prophylaxis. Sequential compression devices for now. DISPOSITION: Admit to med/tele. Level I full code. Social service to help with discharge planning. [facility]PITALGrazyna
[2018-08-29] MEDS ORDERED: GABAPENTIN 1200MG ALCOHOL WITHDRAWAL LOAD PO STA (02:56)
[2018-08-29] MEDS ORDERED: NITROGLYCERIN SL 0.4 MG/TAB TAB SL PRN (02:56)
[2018-08-29] MEDS ORDERED: cloNIDine HCl 0.1 MG TAB PO PRN (02:56)
[2018-08-29] MEDS ORDERED: ONDANSETRON INJ 2 MG/ML 2 ML VIAL IV PRN (02:56)
[2018-08-29] MEDS ORDERED: LORATADINE 10 MG TAB PO PRN (02:56)
[2018-08-29] MEDS ORDERED: NON-FORMULARY MEDICATION (Vancomycin 125 MG) PO SCH (02:56)
[2018-08-29] MEDS ORDERED: SODIUM CHLORIDE 0.9% 1000ML 1,000 ML IV SCH (03:30)
[2018-08-29] MEDS ORDERED: CARBOHYDRATES FOR HYPOGLYCEMIA PO PRN (03:45)
[2018-08-29] MEDS ORDERED: GLUCOSE 10 TABS/TUBE PO PRN (03:45)
[2018-08-29] MEDS ORDERED: POTASSIUM CHLORIDE 10 MEQ TABCR PO ONE (03:45)
[2018-08-29] MEDS ORDERED: GLUCOSE 40% GEL 15 GM TUBE PO PRN (03:45)
[2018-08-29] MEDS ORDERED: GABAPENTIN 600 MG TAB PO ONE (03:45)
[2018-08-29] MEDS ORDERED: DEXTROSE 50% 50 ML SYRINGE IV PRN (03:45)
[2018-08-29] MEDS ORDERED: GLUCAGON FOR INJ 1 MG VIAL IM PRN (03:45)
[2018-08-29] MEDS: LORazepam 1 MG/2 ML VIAL IV PRN ×3 (04:01→19:52)
[2018-08-29] MEDS: DICYCLOMINE HCL 10 MG CAP PO PRN ×2 (04:13→16:41)
[2018-08-29] MEDS: VANCOMYCIN HCL 125 MG/2.5ML SOLN PO SCH ×4 (05:48→23:07)
[2018-08-29] MEDS: RASPBERRY SYRUP 5 ML UDP PO SCH ×4 (05:48→23:07)
[2018-08-29 06:28] LABS: Basophils # (auto) 0.05 K/uL (0-0.2); Eosinophils # (auto) 0.01 K/uL (0-0.5); Eosinophils % (auto) 0.2 %; Hematocrit (blood only) 32.2 % (37-47); Immature Granulocytes # (auto) 0.01 K/uL (0.00-0.02); Immature Granulocytes % (auto) 0.2 %; Lymphocytes # (auto) 2.39 K/uL (1.2-3.4); Lymphocytes % (auto) 48.5 %; Mean Corpuscular Hgb Conc 31.1 g/dL (32-36); Mean Corpuscular Volume 72.9 fL (80-100); Mean Platelet Volume 9.3 fL (7.4-10.4); Monocytes # (auto) 0.43 K/uL (0.11-0.59); Monocytes % (auto) 8.7 %; Neutrophils # (auto) 2.04 K/uL (1.4-6.5); Neutrophils % (auto) 41.4 %; Platelet Count 326 K/uL (130-400); RDW Standard Deviation 61.8 fL (36.4-46.3); Red Blood Count 4.42 M/uL (4.2-5.4); White Blood Count 4.93 K/uL (4.8-10.8)
[2018-08-29 06:48] LABS: Creatinine Clr Calc Pharmacy 156.4 ml/min; Est GFR (African American) 135.4; Est GFR (Non-African American) 116.8; Estimated Average Glucose 137 mg/dl; Hemoglobin A1C 6.4 % (4.5-5.6); Magnesium 1.8 mg/dl (1.8-2.4); Potassium 3.7 mmol/L (3.5-5.1)
[2018-08-29 06:56] LABS: Anisocytosis Present; Giant Platelets 1+; Hypochromasia Present
[2018-08-29] MEDS ORDERED: MAGNESIUM SULFATE / D5W 1 GM/100 ML BAG IV ONE (08:00)
[2018-08-29] MEDS: ESCITALOPRAM OXALATE 20 MG TAB PO SCH (08:35)
[2018-08-29] MEDS: THIAMINE HCL 100 MG TAB PO SCH (08:35)
[2018-08-29] MEDS: SUCRALFATE 1 GM TAB PO SCH ×4 (08:35→19:56)
[2018-08-29] MEDS: FOLIC ACID 1 MG TAB PO SCH (08:35)
[2018-08-29] MEDS: MULTIVITAMIN TAB PO SCH (08:35)
[2018-08-29] MEDS: MAGNESIUM OXIDE 400 MG TAB PO SCH (08:35)
[2018-08-29] MEDS: levETIRAcetam 500 MG TAB PO SCH ×2 (08:36→19:56)
[2018-08-29] MEDS: METOPROLOL SUCC 25MG EXT REL TAB PO SCH (08:36)
[2018-08-29] MEDS: LISINOPRIL 10 MG TAB PO SCH (08:36)
[2018-08-29] MEDS: INSULIN ASPART 100 UNITS/ML 3 ML PEN SC SCH ×4 (08:39→20:49)
[2018-08-29] MEDS ORDERED: FAMOTIDINE 20MG/5ML IV PUSH IV SCH (09:00)
[2018-08-29] MEDS ORDERED: LACTOBACILLUS COMBINATION NO 4 PO SCH (09:00)
[2018-08-29] MEDS ORDERED: FAMOTIDINE 20 MG in SYRINGE 3 ML IV SCH (09:00)
[2018-08-29] MEDS ORDERED: THIAMINE HCL 100 MG TAB PO SCH (09:00)
[2018-08-29] MEDS: ACETAMINOPHEN 325 MG TAB PO PRN (09:57)
[2018-08-29] MEDS: GABAPENTIN 600 MG TAB PO SCH ×3 (09:57→23:07)
[2018-08-29 10:13] LABS: Appearance Urine Cloudy (Clear); Bacteria Urine Automated 1+ (Negative); Bilirubin Urine Negative (Negative); Blood Urine 3+ (Negative); Color Urine Dark Yellow; Epithelial Cell Urine Auto >30 /lpf (0-5); Glucose Urine UA Negative (Negative); Ketones Urine Trace (Negative); Leukocyte Esterase Urine Trace (Negative); Nitrite Urine Negative (Negative); Protein Urine 2+ (Negative); RBC Urine Automated >30 /hpf (0-4); Specific Gravity Urine 1.044 (1.000-1.030); Urobilinogen Urine Negative (Negative); pH Urine 5.5 (4.5-7.5)
[2018-08-29] MEDS: SODIUM CHLORIDE 0.9% 1000ML 1,000 ML IV SCH ×2 (11:00→20:45)
[2018-08-29 12:01] LABS: Amphetamines+Metham, Urine Neg (Neg); Barbiturates, Urine Neg (Neg); Benzodiazepine, Urine Neg (Neg); Cocaine, Urine Neg (Neg); MDMA (Ecstacy), Urine Neg (Neg); Methadone, Urine Neg (Neg); Opiate, Urine Neg (Neg); Phencyclidine, Urine Neg (Neg)
[2018-08-29] MEDS ORDERED: cefTRIAXone SODIUM 1,000 MG in DEXTROSE 5% 50 ML IV STA (15:45)
--- NOTE | 2018-08-29 17:17 | Hospitalist Progress Note ---
Date of Service August 29, 2018 Assessment & Plan (1) Nausea & vomiting: This is a 28-year-old female with history of multiple admissions for recurrent alcoholism and recurrent pancreatitis, recently was in the hospital for alcohol withdrawal and Clostridium difficile diarrhea, comes back due a lcoholism, nausea, vomiting and abdominal pain. -abdominal pain, nausea, vomiting -vomiting symptoms appears to be secondary to alcohol misuse at home and abdominal pain probably from alcohol induced gastritis -admission Lipase is normal. admission CT abdomen and pelvis and abdominal ultrasound is unremarkable -patient was started on IV Pepcid, will transition from IV famotidine to oral ranitidine -advance diet and hold off IV fluids for now Alcoholism multiple admission of alcohol withdrawals -continue gabapentin alcohol withdrawal protocol and ativan prn. -continue home thiamine and folic acid -IV Ativan p.r.n. -patient has made arrangements for alcohol counseling and rehab for Tuesday09/04/18 -had been on keppra in the past as seizure prophylaxis due to history of "blacking out." patient has been off keppra at home and will continue at this time, patient note that she is out of Keppra medications at home Generalized anxiety disorder and mood disorder -Continue with Lexapro and BuSpar. possible urinary tract infection -awaiting urine culture results, start ceftriaxone on 08/29/18 for dysuria symptoms Hypertension - Continue Toprol-XL and lisinopril. Tachycardia is controlled -continue Toprol-XL. 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 Chronic anemia -monitor Morbid obesity with BMI 60 -encourage cutting down on alcohol use Deep vein thrombosis prophylaxis. Sequential compression devices Subjective Patient seen and examined. Denies vomiting today. reports abdominal pain feeling better. reports some blood in stool when wiping today. reports some dysuria. Physical Exam Vital Signs (Past 24 Hours): Last Vital Signs Temp 36.8 C 08/29/18 15:50 Pulse 93 H 08/29/18 16:28 Resp 18 08/29/18 15:50 BP 127/84 08/29/18 15:50 Pulse Ox 98 08/29/18 15:50 Constitutional: WD/WN, vitals as above Eyes: PERRL, conjunctivae normal, anicteric sclerae EOM intact bilaterally ENMT: external ear and nose normal, oropharynx normal Neck: trachea midline, no thyromegaly Respiratory: normal respiratory effort, lungs clear to auscultation Cardiovascular: RRR, no murmur, no edema Gastrointestinal (Abdomen): normal bowel sounds, soft, nontender, no hepatosplenomegaly Musculoskeletal: Head/Neck/Chest: normocephalic and head atraumatic Neurologic: PERRL, EOMI, accommodation nl, no face palsy, no dysarthria CN's II-XI intact bilaterally Psychiatric: A+Ox3, euthymic affect (1) Nausea & vomiting Vomiting Intractability: intractable Vomiting type: unspecified Qualified Code(s): R11.2 - Nausea with vomiting, unspecified
[2018-08-30] MEDS: LORazepam 1 MG/2 ML VIAL IV PRN ×2 (00:17→05:17)
[2018-08-30] MEDS: ACETAMINOPHEN 325 MG TAB PO PRN (05:17)
[2018-08-30] MEDS: VANCOMYCIN HCL 125 MG/2.5ML SOLN PO SCH ×4 (05:18→23:29)
[2018-08-30] MEDS: RASPBERRY SYRUP 5 ML UDP PO SCH ×4 (05:18→23:29)
[2018-08-30] MEDS: SUCRALFATE 1 GM TAB PO SCH ×4 (08:52→20:18)
[2018-08-30] MEDS: GABAPENTIN 600 MG TAB PO SCH ×2 (08:52→16:29)
[2018-08-30] MEDS: levETIRAcetam 500 MG TAB PO SCH ×2 (08:52→20:18)
[2018-08-30] MEDS: LISINOPRIL 10 MG TAB PO SCH (08:52)
[2018-08-30] MEDS: METOPROLOL SUCC 25MG EXT REL TAB PO SCH (08:52)
[2018-08-30] MEDS: THIAMINE HCL 100 MG TAB PO SCH (08:52)
[2018-08-30] MEDS: ESCITALOPRAM OXALATE 20 MG TAB PO SCH (08:52)
[2018-08-30] MEDS: FOLIC ACID 1 MG TAB PO SCH (08:53)
[2018-08-30] MEDS: MAGNESIUM OXIDE 400 MG TAB PO SCH (08:53)
[2018-08-30] MEDS: MULTIVITAMIN TAB PO SCH (08:53)
[2018-08-30] MEDS: INSULIN ASPART 100 UNITS/ML 3 ML PEN SC SCH ×4 (08:56→20:21)
[2018-08-30] MEDS ORDERED: cefTRIAXone SODIUM 1,000 MG in DEXTROSE 5% 50 ML IV SCH (09:00)
[2018-08-30] MEDS: SODIUM CHLORIDE 0.9% 1000ML 1,000 ML IV SCH (10:51)
--- NOTE | 2018-08-30 16:14 | Hospitalist Progress Note ---
Date of Service August 30, 2018 Assessment & Plan (1) Nausea & vomiting: Patient is a 28 yr female with h/o multiple admissions for recurrent alcoholism and recurrent pancreatitis, who was recently treated for alcohol withdrawal and Clostridium difficile diarrhea, presents with nausea, vomiting and abdominal pain. Admits to continue to drink alcohol. Abdominal pain/Nausea & Vomiting: Likely due to Alcoholism and alcohol withdrawal; Hepatic Steatosis CT ABD:No acute infectious or inflammatory findings in the abdomen or pelvis. Hepatomegaly and hepatic steatosis. Trace free fluid in cul-de-sac is nonspecific and likely within physiologic limits. Normal Lipase levels Continue ranitidine DC IV fluids Tolerating diet Abd pain is improving Alcoholism: H/O multiple admission for Alcoholism and alcohol withdrawals continue gabapentin protocol; Ativan PRN continue thiamine, folic acid Patient has been set up for alcohol counseling and rehab for Tuesday09/04/18 Is on keppra for seizure prophylaxis MINERVA/mood disorder Continue Lexapro, BuSpar. FU with Psychiatry as outpatient Possible UTI: Ruled out Urine Culture: Negative DC ceftriaxone Hypertension Stable Continue Metoprolol, lisinopril Sinus Tachycardia continue Beta Edgar Clostridium difficile carrier Diarrhea improving Continue Vancomycin to finish the course DM II: HbA1c 6.4 hold metformin Continue ISS while hospitalized Chronic anemia monitor No bleeding issues Morbid obesity BMI:61 DVT Px: SCDs, ambulate Subjective Patient is seen and examined at bedside Feels better today Abd pain is improving Denies chest pain, SOB, dizziness, dysuria No other complaints No withdrawal symptoms today Physical Exam Vital Signs (Past 24 Hours): Last Vital Signs Temp 36.8 C 08/30/18 15:57 Pulse 91 H 08/30/18 15:57 Resp 21 08/30/18 15:57 BP 124/85 08/30/18 15:57 Pulse Ox 100 08/30/18 15:57 Physical Exam: Physical Exam: Vitals signs as noted above General Appearance:Obese, no apparent distress Head: normocephalic, Atraumatic Eyes: normal inspection, EOMI Neck: supple, Trachea midline Respiratory/Chest: Normal breath sounds, CTA Cardiovascular: S1, S2, No murmur Abdomen/GI:Soft, Mild LUQ tender, Bowel sounds present Extremities/Musculoskelatal:normal inspection, no edema Neurologic/Psych:AAOX3, grossly no focal neurological deficits Skin: normal color, warm (1) Nausea & vomiting Vomiting Intractability: intractable Vomiting type: unspecified Qualified Code(s): R11.2 - Nausea with vomiting, unspecified
[2018-08-30] MEDS: DICYCLOMINE HCL 10 MG CAP PO PRN ×2 (16:28→23:57)
[2018-08-30] MEDS: LORazepam 0.5 MG TAB PO PRN ×2 (16:47→23:42)
[2018-08-31] MEDS: VANCOMYCIN HCL 125 MG/2.5ML SOLN PO SCH ×2 (05:54→12:09)
[2018-08-31] MEDS: RASPBERRY SYRUP 5 ML UDP PO SCH ×2 (05:55→12:09)
[2018-08-31] MEDS: LORazepam 0.5 MG TAB PO PRN ×2 (05:59→12:09)
[2018-08-31] MEDS ORDERED: GABAPENTIN 600 MG TAB PO SCH (06:00)
[2018-08-31 07:43] LABS: Hematocrit (blood only) 31.1 % (37-47); Hemoglobin 9.4 g/dL (12.0-16.0)
[2018-08-31] MEDS: INSULIN ASPART 100 UNITS/ML 3 ML PEN SC SCH ×2 (07:46→12:05)
[2018-08-31] MEDS: levETIRAcetam 500 MG TAB PO SCH (07:55)
[2018-08-31] MEDS: MAGNESIUM OXIDE 400 MG TAB PO SCH (07:55)
[2018-08-31] MEDS: FOLIC ACID 1 MG TAB PO SCH (07:55)
[2018-08-31] MEDS: THIAMINE HCL 100 MG TAB PO SCH (07:55)
[2018-08-31] MEDS: LISINOPRIL 10 MG TAB PO SCH (07:55)
[2018-08-31] MEDS: MULTIVITAMIN TAB PO SCH (07:56)
[2018-08-31] MEDS: ESCITALOPRAM OXALATE 20 MG TAB PO SCH (07:56)
[2018-08-31] MEDS: SUCRALFATE 1 GM TAB PO SCH ×2 (07:56→12:09)
[2018-08-31] MEDS: METOPROLOL SUCC 25MG EXT REL TAB PO SCH (07:56)
[2018-08-31 08:16] LABS: BUN Creatinine Ratio 12.3 (10-20); Calcium 8.4 mg/dl (8.5-10.1); Creatinine Clr Calc Pharmacy 149.5 ml/min; Est GFR (African American) 128.1; Est GFR (Non-African American) 110.5; Potassium 4.3 mmol/L (3.5-5.1)
--- NOTE | 2018-08-31 15:15 | Hospitalist Progress Note ---
Date of Service August 31, 2018 Assessment & Plan (1) Nausea & vomiting: Patient is a 28 yr female with h/o multiple admissions for recurrent alcoholism and recurrent pancreatitis, who was recently treated for alcohol withdrawal and Clostridium difficile diarrhea, presents with nausea, vomiting and abdominal pain. Admits to continue to drink alcohol. Abdominal pain/Nausea & Vomiting: Likely due to Alcoholism and alcohol withdrawal; Hepatic Steatosis CT ABD:No acute infectious or inflammatory findings in the abdomen or pelvis. Hepatomegaly and hepatic steatosis. Trace free fluid in cul-de-sac is nonspecific and likely within physiologic limits. Normal Lipase levels Continue ranitidine DC IV fluids Tolerating diet Abd pain improved Nausea/Vomiting resolved Alcoholism: H/O multiple admission for Alcoholism and alcohol withdrawals continue gabapentin protocol; Ativan PRN continue thiamine, folic acid Patient has been set up for alcohol counseling and rehab for Tuesday09/04/18 Continue home keppra for seizure prophylaxis MINERVA/mood disorder Continue Lexapro, BuSpar. FU with Psychiatry as outpatient Possible UTI: Ruled out Urine Culture: Negative Ceftriaxone discontinued Hypertension Stable Continue Metoprolol, lisinopril Sinus Tachycardia continue Beta Edgar Clostridium difficile carrier Diarrhea Improved Continue Vancomycin to finish the course DM II: HbA1c 6.4 hold metformin Continue ISS while hospitalized Chronic anemia monitor No bleeding issues Morbid obesity BMI:61 DVT Px: SCDs, ambulate Subjective Patient is seen and examined at bedside No new complaints Abd pain much improved Denies chest pain, SOB, dizziness, dysuria Diarrhea rrsolved Plan to be discharged home today Physical Exam Vital Signs (Past 24 Hours): Last Vital Signs Temp 36.7 C 08/31/18 07:06 Pulse 83 08/31/18 10:28 Resp 18 08/31/18 07:06 BP 135/87 08/31/18 07:06 Pulse Ox 100 08/31/18 07:06 Physical Exam: Physical Exam: Vitals signs as noted above General Appearance:Obese, no apparent distress Head: normocephalic, Atraumatic Eyes: normal inspection, EOMI Neck: supple, Trachea midline Respiratory/Chest: Normal breath sounds, CTA Cardiovascular: S1, S2, No murmur Abdomen/GI:Soft, Mild LUQ tender, Bowel sounds present Extremities/Musculoskelatal:normal inspection, no edema Neurologic/Psych:AAOX3, grossly no focal neurological deficits Skin: normal color, warm Results & Data Laboratory Results Short CBC 08/31/18 Range/Units 07:23 Hgb 9.4 L (12.0-16.0) g/dL Hct 31.1 L (37-47) % BMP 08/31/18 07:23 Sodium 136 Potassium 4.3 Chloride 105 Carbon Dioxide 25 BUN 9 Creatinine 0.73 Glucose 103 H Calcium 8.4 L (1) Nausea & vomiting Vomiting Intractability: intractable Vomiting type: unspecified Qualified Code(s): R11.2 - Nausea with vomiting, unspecified
--- NOTE | 2018-08-31 15:25 | Discharge Summary ---
Date of Service August 31, 2018 Admission HPI Per Admitting Provider CHIEF COMPLAINT: Abdominal pain, nausea and vomiting. HISTORY OF PRESENT ILLNESS: This is a 28-year-old female with past medical history significant for alcoholism, recurrent admission for alcoholism, recurrent pancreatitis, morbid obesity, type 2 diabetes, GERD, uterine leiomyoma, generalized anxiety disorder, mood disorder, who was recently in the hospital and discharged on 08/20/2018. At that time, she was admitted for alcohol withdrawal, also found to have diarrhea. Stool was PCR positive for c diff and negative for toxin but because of severe diarrhea she was started on p.o. vancomycin and diarrhea improved.. She was also seen by psychiatry and planned for intensive outpatient therapy for alcohol abuse and was discharged and the patient says after going home the next day she started drinking vodka about 1 bottle daily. She lives alone. Her boyfriend and sister check on her. She was in the rehab in the past but this time again she is interested to go to rehab. Since last night, she was having moderate to severe abdominal pain radiating to back with nausea and vomiting several episodes, which prompted her to come to the ER today. Last drink was few hours before coming to the ER. Currently, resting comfortably, still has significant abdominal pain. Denies any chest pain, no shortness of breath, no cough, no fever, no chills, no headache, has some sore throat from coughing and she is having difficulty swallowing because of cough and from nausea and vomiting. Since yesterday she is having again some loose stools, no blood in the stools. Normal bladder movements. No hematuria, no rash. Admission Exam Per Admitting Provider PHYSICAL EXAMINATION: GENERAL: The patient is morbidly obese, not in acute distress. VITAL SIGNS: Temperature 37, pulse 104, respiratory rate 19, blood pressure 145/112, oxygen 98% room air. HEENT: No pallor, no icterus. Pupils equal, round, and reactive to light. NECK: No JVD, no neck masses, no carotid bruits. CARDIOVASCULAR: S1, S2 heard, regular rate and rhythm. Tachycardia. No murmurs. RESPIRATORY SYSTEM: Normal AP diameter. No accessory muscle use. No wheezing. No crackles. ABDOMEN: Soft, bowel sounds sluggish. Epigastric tenderness present. Some mild guarding, no rigidity. No distention. CENTRAL NERVOUS SYSTEM: Cranial nerves II-XII grossly nonfocal. EXTREMITIES: No edema, no erythema. Principal Diagnosis Discharge Information Discharge Diagnosis Alcohol use disorder Mood disorder Discharge Goals Decrease discomfort,Improve disease control, Improve function Discharge Activity Limitations Resume your previous acti Discharge Data Allergies Allergy/AdvReac Type Severity Reaction Status Date / Time pantoprazole Allergy Intermediate "ITCHY ALL Verified 08/28/18 19:52 OVER" ketorolac Allergy Mild pruritus Verified 08/28/18 19:52 ondansetron Allergy Unknown lip Verified 08/28/18 19:52 tingling morphine AdvReac Intermediate ITCHINESS Verified 08/28/18 19:52 Consultations 08/28/18 22:48 ED Decision to Admit Stat 08/29/18 02:56 Consult Case Management - Discharge Planning Routine Procedures Performed CT ABD: 1. There are no acute infectious or inflammatory findings in the abdomen or pelvis. 2. Hepatomegaly and hepatic steatosis. 3. Trace free fluid in cul-de-sac is nonspecific and likely within physiologic limits. CXR: No active disease in the chest. ABD USD: 1. No acute sonographic abnormality is identified. 2. Status post cholecystectomy. 3. Hepatomegaly and hepatic steatosis. Ordered Studies 08/28/18 19:22 US abdomen limited Stat 08/28/18 21:30 CT abd pelvis IV con only Stat Hospital Course (1) Nausea & vomiting: Patient is a 28 yr female with h/o multiple admissions for recurrent alcoholism and recurrent pancreatitis, who was recently treated for alcohol withdrawal and Clostridium difficile diarrhea, presents with nausea, vomiting and abdominal pain. Admits to continue to drink alcohol. Abdominal pain/Nausea & Vomiting: Likely due to Alcoholism and alcohol withdrawal; Hepatic Steatosis CT ABD:No acute infectious or inflammatory findings in the abdomen or pelvis. Hepatomegaly and hepatic steatosis. Trace free fluid in cul-de-sac is nonspecific and likely within physiologic limits. Normal Lipase levels Continue ranitidine DC IV fluids Tolerating diet Abd pain improved Nausea/Vomiting resolved Alcoholism: H/O multiple admission for Alcoholism and alcohol withdrawals continue gabapentin protocol; Ativan PRN continue thiamine, folic acid Patient has been set up for alcohol counseling and rehab for Tuesday09/04/18 Continue home keppra for seizure prophylaxis MINERVA/mood disorder Continue Lexapro, BuSpar. FU with Psychiatry as outpatient Possible UTI: Ruled out Urine Culture: Negative Ceftriaxone discontinued Hypertension Stable Continue Metoprolol, lisinopril Sinus Tachycardia continue Beta Edgar Clostridium difficile carrier Diarrhea Improved Continue Vancomycin to finish the course DM II: HbA1c 6.4 hold metformin Continue ISS while hospitalized Chronic anemia monitor No bleeding issues Morbid obesity BMI:61 DVT Px: SCDs, ambulate Total Time Total Time Spent Total Time Spent (In Minutes): 37 minutes Total Time Includes: Examination of the Patient, Discharge Planning, Medication Reconciliation, Communication With Other Providers and Other Discharge Plan Discharge Items Patient Disposition: Home - Self-Care Reason For Visit: ABDOMINAL PAIN, N / V Discharge Diagnosis: Alcohol use disorder Mood disorder Condition: Good Discharge Goals: Decrease discomfort, Improve disease control and Improve function Activity: Resume your previous activity Exercise/Sports: Gradually increase as tolerated Non-emergency contact: Primary Care Provider and Psychiatrist Call non-emergency contact if: you have any medication questions, your symptoms worsen, your pain is not controlled, your pain is worsening, your pain is unusual for you, your pain is concerning for you and you have a fever Follow-up/Referrals: Logan Tsai, DO [Primary Care Provider] - Diet: Carb Consistent or DM2 Addtl Provider Instructions: Follow up with your PCP on September 01, 2018 at 12:15pm Follow up with your Psychiatrist as advised Quit drinking alcohol as advised Complete the Vancomycin course as previously prescribed Seek immediate medical attention if your symptoms reoccur or worsen Prescriptions: Continued polyethylene glycol 3350 [Miralax] 17 gram Powder In Packet 17 g PO DAILY PRN (Reason: Constipation) RF: 0 sucralfate [Carafate] 1 gram tablet 1 g PO ACHS RF: 0 metformin [Glucophage XR] 500 mg tablet extended release 24 hr 500 mg PO QAM RF: 0 buspirone 10 mg tablet 10 mg PO BID RF: 0 thiamine HCl (vitamin B1) [Vitamin B-1] 100 mg Tablet 100 mg PO QAM 30 Days Qty: 30 RF: 0 lisinopril [Zestril] 10 mg Tablet 10 mg PO QAM 30 Days Qty: 30 RF: 0 folic acid 1 mg Tablet 1 mg PO QAM 30 Days Qty: 30 RF: 0 metoprolol succinate 25 mg Tablet Extended Release 24 Hr 25 mg PO DAILY 30 Days Qty: 30 RF: 0 escitalopram oxalate 20 mg Tablet 20 mg PO QAM 30 Days Qty: 30 RF: 0 vancomycin 125 mg capsule 125 mg PO Q6H 12 Days Qty: 48 RF: 0 multivitamin Tablet 1 tab PO DAILY RF: 0 thiamine HCl (vitamin B1) 100 mg Tablet 100 mg PO DAILY RF: 0 omeprazole 40 mg Capsule,Delayed Release(Dr/Ec) 40 mg PO DAILY PRN (Reason: Acid Reflux) RF: 0 dicyclomine 10 mg Capsule 10 mg PO BID PRN (Reason: ABD CRAMPING) RF: 0 loratadine [Claritin] 10 mg Tablet 10 mg PO DAILY PRN (Reason: ALLERGIES) RF: 0 Probiotic 3 billion cell Capsule PO DAILY RF: 0 levetiracetam [Keppra] 500 mg Tablet 500 mg PO BID RF: 0 Stand-Alone Forms: [facility], Work/School Release (Inpt) Discharge Orders: Discharge Order (Routine); Ordered 08/31/18 Ordered By: Paulino Harley Admission Data Admit Date/Time: 08/28/18 23:57 Attending Provider: Paulino Harley Admit Provider: Alek Olivera Primary Care Provider: Logan Tsai Other Providers: Alek Olivera ; Lawrence Vences Service: Telemetry Medical Other Interventions: Discharge Summary Assessment (RN) Last Done: 08/31/18 15:42 Pending Studies at Discharge: No DC Date/Time DO NOT enter until pt leaves facility: 08/31/18 16:17
[2018-09-01] MEDS ORDERED: GABAPENTIN 600 MG TAB PO SCH (18:00)
== END 2018-08-31 16:17 | disposition home or self-care (01) | DRG 897 ==
LOC: ED 18:50 → SUATTDRO 23:57 → 2W 08-29